=== PATIENT | female | born 1975 | race Caucasian/White ===

== ENCOUNTER 2023-06-15 13:10 | Emergency (ER) | payer MEDICAID, SELFPAY ==
[2023-06-15] VITALS (10 sets, daily range): BP systolic 116–147; BP diastolic 71–95; PULSE 92; RESP 16; O2SAT 96–99; BMI 30.9
--- NOTE | 2023-06-15 14:35 | ED.ALLEREA1 ---
HPI - Allergic Reaction General Chief complaint: Allergic Reaction Stated complaint: POSS. BEE STING Time Seen by Provider: 06/15/23 13:12 Source: patient Mode of arrival: ambulance Limitations: no limitations History of Present Illness HPI narrative: patient brought in by EMS after getting stung on the left anterolateral neck. She was putting her phone against her neck and the insect must have been on the phone and then stung her. She immediately had pain and redness and some swelling at the site. She then developed shortness of breath and the sensation of throat swelling and so she called 911. EMS gave her SQ Epi, IV solumedrol and IV Benadryl. By the time she arrived she was already feeling better. She still had redness and swelling to the neck. Related Data Previous Rx's Medication Instructions Recorded prednisone 20 mg tablet 40 mg PO DAILY PRN allergic 06/15/23 reaction #10 tabs Allergies Allergy/AdvReac Type Severity Reaction Status Date / Time Penicillins Allergy Intermediate Verified 06/15/23 13:13 Exam Narrative Exam Narrative: Nurses notes and vital signs reviewed and patient is not hypoxic. General: Well-appearing and in no apparent distress. Skin: Warm, dry, no pallor noted. No rash. Head: Normocephalic, atraumatic. Neck: Supple, no lymphadenopathy. Area of swelling and erythema along the anterolateral left neck. Eye: Pupils are equal, round and EOMI. No scleral icterus. Ears, Nose, Mouth, and Throat: Oral mucosa is slightly dry, no posterior oropharynx erythema or swelling, uvula is mid-line, no tongue swelling Cardiovascular: Regular Rate and Rhythm without murmur, gallop or rub. Respiratory: No accessory muscle use or respiratory distress. Lungs are clear to auscultation, no wheezing, rales or rhonchi Musculoskeletal: normal ROM Neurological: A&O x4. No cranial nerve dysfunction observed. No truncal ataxia. Moves all extremities. Sensation intact. Psychiatric: Cooperative and interactive. Normal mood and affect. Constitutional Vital Signs, click to edit/add: Last Vital Signs Pulse 92 H 06/15/23 13:11 Resp 16 06/15/23 13:11 BP 116/77 06/15/23 14:00 Pulse Ox 96 06/15/23 14:00 O2 Del Method Room Air 06/15/23 13:17 Course Vital Signs Vital signs: Vital Signs Pulse Rate 92 H 06/15/23 13:11 Respiratory Rate 16 06/15/23 13:11 Blood Pressure 147/95 H 06/15/23 13:11 Pulse Oximetry 98 06/15/23 13:11 Oxygen Delivery Method Room Air 06/15/23 13:11 Pulse Rate 92 H 06/15/23 13:11 Respiratory Rate 16 06/15/23 13:11 Blood Pressure 116/77 06/15/23 14:00 Pulse Oximetry 96 06/15/23 14:00 Oxygen Delivery Method Room Air 06/15/23 13:17 MDM - Allergic Reaction MDM Narrative Medical decision making narrative: she is doing very well after the treatment the EMS provided and her symptoms have already improved. She was given some ice water to drink. The area of redness and swelling in the portion of her neck in which the bite or sting occurred should improve on its own over time. She was instructed to take Benadryl at home and she was prescribed prednisone to take as well in case her symptoms persisted. Discharge Plan Discharge Chief Complaint: Allergic Reaction Clinical Impression: Allergic reaction, Insect bite Patient Disposition: Home, Self-Care Time of Disposition Decision: 14:40 Prescriptions / Home Meds: New prednisone 20 mg tablet 40 mg PO DAILY PRN (Reason: allergic reaction) Qty: 10 0RF Instructions: Insect Bite or Sting (ED), General Allergic Reaction (ED) Stand Alone Forms: Portal Instructions Referrals: Physician,Non-Staff, MD [Primary Care Provider] - 1 week
== END 2023-06-15 14:52 | disposition home or self-care (01) ==
PROVIDERS: Emergency Provider Emergency Medicine
DX: T63.481A Toxic effect of venom of other arthropod, accidental (unintentional), initial encounter (principal)
CPT/HCPCS: 99283

== ENCOUNTER 2023-12-28 16:50 | Emergency (ER) | payer MEDICAID, SELFPAY ==
[2023-12-28 16:55] VITALS: BP 152/95; PULSE 85; RESP 20; TEMP 36.5; O2SAT 97; BMI 30.9
--- NOTE | 2023-12-28 17:07 | XR_ITS ---
The [address] [address] Patient Name: NANCY NICOLE MRN: [id number] date: 1975 Sex: F Assigned Patient Location: ER Current Patient Location: ER Accession/Order Number: [id number] Exam Date: 12/28/2023 17:19 Report Date: 12/28/2023 18:03 At the request of: WALE POWELL Procedure: XR cervical spine 2-3V EXAM TYPE: XR cervical spine 2-3V INDICATION: right sided neck pain COMPARISON: None. TECHNIQUE: 3 views of the cervical spine. FINDINGS: There is minimal anterolisthesis of C2-C3 measuring approximately 2 mm. There is straightening of the normal lordotic curvature of the cervical spine which may represent muscle spasming. There is a mild to moderate narrowing of the C5-C6 level. Prevertebral soft tissues are within normal limits. The visualized lung apices are clear. Lateral masses of C1-C2 are symmetric. XR/XR cervical spine 2-3V IMPRESSION: Mild to moderate degenerative disc disease of C5-C6. Electronically authenticated by: KAYE OSMAN Date: 12/28/2023 18:03
--- NOTE | 2023-12-28 17:08 | ED.GENADUL1 ---
HPI - General Adult General Chief complaint: Neck Pain/Injury Stated complaint: Neck Pain Time Seen by Provider: 12/28/23 16:57 Source: patient Mode of arrival: walk-in Limitations: no limitations History of Present Illness HPI narrative: Patient is a 48-year-old female Presents to the ER for evaluation of right-sided neck pain. Patient states she Was roller skating with kids on Friday, got taken out by another kid and landed on her left hip, left wrist and felt her neck pulled. She denies any head injury or loss of consciousness. She has a longstanding history of chronic migraines and neck pain and was previously referred to physical therapy 2 months ago by her neurologist but has not yet gone. Patient notes pain mostly on the right side of her neck which is opposite of where she fell, tried muscle relaxant and of the week x 1 with minimal to no relief. Patient denies headache at this time but states she does get frequent migraines. Patient walks well and notes that the symptoms in her left hip are tolerable, left wrist appears to be resolved. Pt denies Head injury, neck pain started few days s/p fall. Location: Reports neck (right SCM) Radiation: Reports neck Severity: moderate Relieving factors: Reports none (tried multiple modalities at home Red light/ sauna blanket etc) Exacerbating factors: Reports movement Related Data Home Medications Medication Instructions Recorded Confirmed dextroamphetamine-amphetamine ER 20 mg PO DAILY 12/28/23 12/28/23 20 mg 24hr capsule,extend release (Adderall XR) fluoxetine 20 mg capsule 20 mg PO DAILY 12/28/23 12/28/23 ketorolac 10 mg tablet 10 mg PO TID PRN pain 12/28/23 12/28/23 pramipexole 0.75 mg tablet 0.75 mg PO TID 12/28/23 12/28/23 Previous Rx's Medication Instructions Recorded methylprednisolone 4 mg tablets in 4 mg PO DAILY #21 ea 12/28/23 a dose pack (Medrol (Dayron)) ondansetron HCl 4 mg tablet 4 mg PO Q6H PRN nausea and 12/28/23 vomiting #12 tabs tizanidine 4 mg tablet 4 mg PO TID PRN muscle spasticity 12/28/23 3 days #9 tabs Allergies Allergy/AdvReac Type Severity Reaction Status Date / Time adhesive tape Allergy Intermediate Verified 12/28/23 16:58 Penicillins Allergy Intermediate Verified 06/15/23 13:13 sumatriptan [From Imitrex] Allergy Intermediate Verified 12/28/23 16:58 Review of Systems ROS Constitutional Denies: fever or chills Eyes Denies: change in vision Ears, nose, mouth, and throat Reports: neck pain; Denies: throat pain, throat swelling, dry mouth or vertigo Cardiovascular Denies: chest pain, palpitations or edema Respiratory Denies: shortness of breath Gastrointestinal Denies: abdominal pain or nausea Musculoskeletal Reports: neck pain and extremity pain (mild soreness left buttocl. ); Denies: back pain Integumentary/Breast Denies: rash Neurological Denies: headache or numbness in extremities Psychiatric Denies: anxiety Hematologic/Lymphatic Denies: easy bruising Allergic/Immunologic Denies: hives Exam Narrative Exam Narrative: Nurses notes and vital signs reviewed and patient is not hypoxic. General: The patient appears well and in no apparent distress. Patient is resting comfortably and easily Sitting up on cart Skin: Warm, dry, no pallor noted. Head: Normocephalic, atraumatic Neck: Supple, trachea mid-line, no mid line tenderness, no lymphadenopathy, + pain to right SCM. + pain looking to right, moves well to left. able to chin to chest. Eye: Pupils are equal, round and reactive to light, EOMI Ears, Nose, Mouth, and Throat: TM are clear, normal light reflex, oral mucosa is moist, no posterior oropharynx erythema or hypertrophy, uvula is mid-line Cardiovascular: Regular Rate and Rhythm Respiratory: Patient is in no distress, no accessory muscle use, lungs are clear to auscultation, no wheezing, rales or rhonchi. Chest Wall: no tenderness, no clavicular pain Back: non-tender, no CVA tenderness, + tenderness left buttock to ischial tuberosity. Musculoskeletal: normal ROM, no tenderness or swelling to Left wrist or elbow. no scaphoid tenderness. full rom and no bony tenderness to wrist joint. Bilateral shoulders nontender. . hips with full rom active and passive without pain, neg slr... GI: no tenderness to palpation, no masses appreciated. No rebound, guarding, or rigidity noted. Neurological: A&O x4, neg hoffmans, reflexes 2/4 UE Psychiatric: Cooperative Constitutional Vital Signs, click to edit/add: Last Vital Signs Temp 97.7 F 12/28/23 16:55 Pulse 85 12/28/23 16:55 Resp 20 12/28/23 16:55 BP 152/95 H 12/28/23 16:55 Pulse Ox 97 12/28/23 16:55 O2 Del Method Room Air 12/28/23 16:55 Course Vital Signs Vital signs: Vital Signs Temperature 97.7 F 12/28/23 16:55 Pulse Rate 85 12/28/23 16:55 Respiratory Rate 20 12/28/23 16:55 Blood Pressure 152/95 H 12/28/23 16:55 Pulse Oximetry 97 12/28/23 16:55 Oxygen Delivery Method Room Air 12/28/23 16:55 Temperature 97.7 F 12/28/23 16:55 Pulse Rate 85 12/28/23 16:55 Respiratory Rate 20 12/28/23 16:55 Blood Pressure 152/95 H 12/28/23 16:55 Pulse Oximetry 97 12/28/23 16:55 Oxygen Delivery Method Room Air 12/28/23 16:55 Medical Decision Making MDM Narrative Medical decision making narrative: pt agreeable to IM injection for pain and muscle relaxant ( oral prednisone ) with risk and benefit discussed. xrays preformed of neck and left hip. suspect whiplash injury with fall.. no s/s of head injury.... pt with Acute on chronic right-sided neck pain, likely exacerbated with fall's possible whiplash injury. We discussed her plain films with potential age-indeterminate Process avulsion fracture. On clinical exam she is not significantly tender in this location for acute injury. However prior MRI does show cervical disc bulging at on the right... and prior Ct does not show this possible chip. risk and benefits of medication discussed.. muscle relaxant and prednsione rx discussed.Zofran sent for nausea, patient agreeable to call orthopedic clinic to try and schedule appointment with air quality instrument specialist prior to starting physical therapy. Patient open to possible pain management if clinically indicated. Patient reports best relief of prior migraine symptoms and neck pain with occipital nerve injection at [facility]. The patient is to followup with Orthopedic clinic ( try for appt with software implementation specialist) primary care physician in next 2-3 days or to return to the emergency department should any of the signs or symptoms worsen or new symptoms develop. Patient had questions answered. The patient agrees with the following Diagnosis and Treatment plan and the patient will be discharged home. Imaging Data xr hip and c-spine: Attestation: I personally reviewed and interpreted this imaging study as follows: My impression: ? age inderminate avulsion c7 spinous process Radiologist's impression: ITS Impressions Cervical Spine X-Ray 12/28/23 17:07 IMPRESSION: Mild to moderate degenerative disc disease of C5-C6. Electronically authenticated by: KAYE OSMAN Date: 12/28/2023 18:03 Hip/Pelvis X-Ray 12/28/23 17:12 IMPRESSION: No acute fracture of the left hip or bony pelvis. Electronically authenticated by: KAYE OSMAN Date: 12/28/2023 18:04 Discharge Plan Discharge Chief Complaint: Neck Pain/Injury Clinical Impression: Neck pain on right side, Acute pain of left hip Strain of neck muscle Qualifiers: Encounter type: initial encounter Qualified Code(s): S16.1XXA - Strain of muscle, fascia and tendon at neck level, initial encounter Patient Disposition: Home, Self-Care Time of Disposition Decision: 18:10 Condition: Good Prescriptions / Home Meds: New methylprednisolone [Medrol (Dayron)] 4 mg tablets,dose pack 4 mg PO DAILY Qty: 21 0RF Rx Instructions: as directed tizanidine 4 mg tablet 4 mg PO TID PRN (Reason: muscle spasticity) 3 Days Qty: 9 0RF ondansetron HCl 4 mg tablet 4 mg PO Q6H PRN (Reason: nausea and vomiting) Qty: 12 0RF No Action pramipexole 0.75 mg tablet 0.75 mg PO TID dextroamphetamine-amphetamine [Adderall XR] 20 mg capsule,extended release 24hr 20 mg PO DAILY fluoxetine 20 mg capsule 20 mg PO DAILY ketorolac 10 mg tablet 10 mg PO TID PRN (Reason: pain) Instructions: Cervical Strain (ED) Additional Instructions: contact Dr. Nazario's office.. ask for Dr. Warner Saunders ( orthospine specialiast)- history of cervical disc herniation ? avulsion C7 spinous process prior to starying physical therapy order with Neurolgy. ( prior MRI on [facility] PACs noting disc herniation) Stand Alone Forms: Portal Instructions Referrals: LISA GA [Physician] - 1 week Michi Chaidez DO [Physician] - As soon as possible Carlton Nazario MD [Physician] - As soon as possible
--- NOTE | 2023-12-28 17:12 | XR_ITS ---
The [address] [address] Patient Name: NANCY NICOLE MRN: [id number] date: 1975 Sex: F Assigned Patient Location: ER Current Patient Location: ER Accession/Order Number: [id number] Exam Date: 12/28/2023 17:19 Report Date: 12/28/2023 18:04 At the request of: WALE POWELL Procedure: XR hip LT 2V w/ pelvis XR hip LT 2V w/ pelvis: HISTORY: pain left hip s/p fall pain left hip s/p fall COMPARISON: None available. TECHNIQUE: 3 left hip/bony pelvis views are submitted. FINDINGS: BONES/JOINT SPACES: There is no acute fracture or dislocation. There is mild narrowing of the hip joints. The contour of each femoral head is well maintained. Pelvic ring structures are preserved. SOFT TISSUES: The soft tissues are unremarkable. XR/XR hip LT 2V w/ pelvis IMPRESSION: No acute fracture of the left hip or bony pelvis. Electronically authenticated by: KAYE OSMAN Date: 12/28/2023 18:04
[2023-12-28] MEDS: ORPHENADRINE 60 MG/ 2 ML VIAL IM (17:35)
[2023-12-28] MEDS: KETOROLAC TROMETHAMINE 60 MG/2 ML VIAL IM (17:35)
[2023-12-28] MEDS: PREDNISONE 20 MG TABLET 40 MG PO (17:35)
[2023-12-28] MEDS: ONDANSETRON 4 MG RAPDIS TABLET SL (18:03)
== END 2023-12-28 18:16 | disposition home or self-care (01) ==
PROVIDERS: Emergency Provider Emergency Medicine
DX: M54.2 Cervicalgia (principal); M25.552 Pain in left hip; M50.322 Other cervical disc degeneration at C5-C6 level
CPT/HCPCS: 72040; 73502; 96372; 99285; J1885; J2360; J7512; Q0162

== ENCOUNTER 2024-01-28 13:56 | Outpatient (OUT) | payer MEDICAID, SELFPAY ==
--- NOTE | 2024-01-28 14:01 | MR_ITS ---
[address] [address] Patient Name: NANCY NICOLE MRN: [facility]:[id number] date: 1975 Sex: F Assigned Patient Location: MRI Current Patient Location: MRI Accession/Order Number: [id number] Exam Date: 01/28/2024 14:10 Report Date: 01/28/2024 15:51 At the request of: CHANEL ZUNIGA Procedure: MR cervical spine wo con EXAM: MR cervical spine wo con CLINICAL INDICATION: strain of neck muscle S16.1XXA COMPARISON: Cervical spine radiographs 12/28/2023. TECHNIQUE/PROTOCOL: Standard noncontrast cervical spine protocol MR performed (Sagittal STIR, T1, T2, axial gradient, T2-weighted images). FINDINGS: Spinal Cord: Normal in caliber and signal. Epidural Hematoma: None. Alignment: Normal craniocervical junction. Straightening of the physiologic cervical lordosis could relate at least in part to patient positioning. Marrow Signal: Normal. Vertebral Body Heights: Maintained. Paraspinal Soft Tissues: Normal. Neck Soft Tissues: Normal. Spondylotic Changes: Mild multilevel spondylotic changes include varying degrees of intervertebral disc height loss, disc desiccation, osteophytic ridging, and facet/uncovertebral joint hypertrophy. C2-C3: No disc bulge or herniation. No high-grade spinal canal narrowing. Right foramen is patent. Mild left foraminal narrowing is contributed to by facet hypertrophy. C3-C4: No disc bulge or herniation. No high-grade spinal canal or foraminal narrowing. Minimal bilateral facet hypertrophy. C4-C5: No disc bulge or herniation. No high-grade spinal canal narrowing. Mild bilateral foraminal narrowing is contributed to by uncovertebral and facet joint hypertrophy. C5-C6: Disc osteophyte complex indents the ventral thecal sac. Mild spinal canal narrowing. Advanced bilateral foraminal narrowing is contributed to by uncovertebral and facet joint hypertrophy. C6-C7: No disc bulge or herniation. No high-grade spinal canal or foraminal narrowing. C7-T1: No disc bulge or herniation. No high-grade spinal canal or foraminal narrowing. MR/MR cervical spine wo con IMPRESSION: 1. Mild multilevel spondylotic changes without high-grade spinal canal narrowing at any cervical level. 2. Foraminal narrowing is advanced bilaterally at C5-C6. This is contributed to by uncovertebral and facet joint hypertrophy. Electronically authenticated by: BRIELLE PÉREZ Date: 01/28/2024 15:51
== END 2024-01-28 13:57 | disposition home or self-care (01) ==
LOC: MRI 13:56
PROVIDERS: Visit Provider Orthopaedic Surgery Orthopaedic Surgery of the Spine
DX: S16.1XXA Strain of muscle, fascia and tendon at neck level, initial encounter (principal)
CPT/HCPCS: 72141

== ENCOUNTER 2024-01-28 16:34 | Outpatient (RCR) | payer MEDICAID, SELFPAY | END 2024-01-29 11:13 | disposition home or self-care (01) | LOC: PT 16:34 | PROVIDERS: Visit Provider Psychiatry & Neurology Neurology | DX: M47.812 Spondylosis without myelopathy or radiculopathy, cervical region (principal); M54.2 Cervicalgia; S16.1XXD Strain of muscle, fascia and tendon at neck level, subsequent encounter | CPT/HCPCS: 72141; 97110; 97140; 97162 ==

== ENCOUNTER 2024-09-03 08:57 | Outpatient (OUT) | payer MEDICAID, SELFPAY ==
--- NOTE | 2024-09-03 09:10 | XR_ITS ---
[address] [address] Patient Name: NANCY NICOLE MRN: [id number] date: 1975 Sex: F Assigned Patient Location: [facility] Current Patient Location: [facility] Accession/Order Number: [id number] Exam Date: 09/03/2024 10:32 Report Date: 09/03/2024 10:56 At the request of: CHANEL ZUNIGA Procedure: XR chest 2V PROCEDURE: XR chest 2V DATE: 09/03/2024 10:32 AM EDT COMPARISONS: 11/24/2022 CLINICAL INDICATION: 48 years Female smoker FINDINGS: The cardiomediastinal silhouette and pulmonary vasculature are within normal limits. The lungs are clear. There is no evidence of pleural effusion or pneumothorax. XR/XR chest 2V IMPRESSION: Chest radiograph is within normal limits. Electronically authenticated by: CONCHIS GUZMAN Date: 09/03/2024 10:56
--- NOTE | 2024-09-03 09:11 | ECG_ITS ---
The 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
--- OUTSIDE RECORDS SUMMARY | 2024-09-03 09:22 | XMS_ITS | CCD ---
Author Organization [facility] Inform ion 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 Role Phone Josy Isaacs Primary Care Physician Varun Card Primary Care Provider MD Prateek Hicks Attending Provider VERA Isaacs Primary Care Provider MD Gaurav Marr Attending Provider [phone] MD Prateek Hicks Admit Provider DO Brady Shaikh Emergency Provider Varun Dowell Primary Care Provider Josy Isaacs Primary Care Unavailable Brady Shaikh Attending Unavailable Brady Shaikh Admitting Unavailable Josy Isaacs Primary Care Unavailable Gaurav Marr Admitting Unavailable Gaurav Marr Attending Unavailable Josy Isaacs Primary Care Unavailable Prateek Hicks Attending Unavailable Prateek Hicks Admitting Unavailable Josy Isaacs Primary Care Unavailable Prateek Hicks Attending Unavailable Prateek Hicks Admitting Unavailable DIAB ., CHARLIE Admitting Unavailable DIAB ., CHARLIE Attending Unavailable ILIANA BERMUDEZ Consulting Unavailable [facility] Primary Care Unavaila ble DIAB ., CHARLIE Consulting Unavailable MISC, DR AU Admitting Unavailable MISC, DR AU Consulting Unavailable MISC, DR AU Attending Unavailable [facility] Primary Care Unavaila ble Romeo Chaidez Primary Care Physician Unavail able Romeo Chaidez Primary Care Physician Unavail able REMIGIO TRUJILLO Attending Unavailable VARUN CARD Primary Care REMIGIO Platt Attending Unavailable VARUN CARD Primary Care Romeo Izquierdo Attending Unavailable Romeo Chaidez Referring Unavailable Romeo Chaidez Admitting Unavailable Romeo Chaidez Attending Unavailable Romeo Chaidez Admitting Unavailable Romeo Chaidez Attending Unavailable Romeo Chaidez Attending Unavailable Romeo Chaidez Attending Unavailable Romeo Chaidez Attending Unavailable Romeo Chaidez Attending Unavailable Romeo Chaidez Attending Unavailable Romeo Chaidez Attending Unavailable Romeo Chaidez DO Primary Care Provider PRATEEK HICKS Attending Unavailable PRATEEK HICKS Referring Unavailable LISA MARTÍNEZ Attending Unavailable PRATEEK HICKS Attending Unavailable LISA MARTÍNEZ Attending Unavailable Yovani Negrete Admitting Unavailab Yovani Deleon Attending Unavailab le Dm ANDINO, Romeo Lopez Primary Care Unavailable Omley, Tru H Admitting Unavailable Shaka Tru H Attending Unavailable Romeo Chaidez DO Primary Care Unavailable Bin Bello I Attending Unavailable Dm ANDINO, Romeo Lopez Primary Care Unavailable Eugenia, Bin I Admitting Unavailable Omley, Tru H Admitting Unavailable Omley, Tru H Attending Unavailable Dm ANDINO, Romeo Lopez Primary Care Unavailable Jeff Ingram Attending Unavailable Dm ANDINO, Romeo Lopez Primary Care Unavailable Jeff Ingram Admitting Unavailable Omley, Tru H Admitting Unavailable Shaka, Tru H Attending Unavailable Romeo Chaidez DO Primary Care Unavailable Dameon Varner Admitting Unavailable Dameon Varner Attending Unavailable Dm ANDINO, Romeo Lopez Primary Care Unavailable Brenna Yoon Admitting Unavailab Brenna Young Attending Unavailab le Dm ANDINO, Romeo Lopez Primary Care Unavailable Allergies Allergy Classification Reported Allergen(s) Allergy Type Date of Onset Reaction(s) Facility Adhesive Tape (1 source) Adhesive Tape Substance Allergy Chemical burn [facility] Penicillins (antibiotic) (1 source) Penicillin; Translations: [penicillin] Drug Allergy Rash [facility] Serotonin-1b and Serotonin-1d Receptor Agonists (1 source) SUMAtriptan; Translations: [sumatriptan] Drug Allergy Eruption of skin (disorder) [facility] (16 sources) Adhesive Tape; Translations: [Tape] Drug allergy 2 Chemical burn, Rash, damon skin [facility] (16 sources) Penicillin; Translations: [penicillin] Drug Allergy Rash [facility] (19 sources) SUMAtriptan; Translations: [sumatriptan] Drug Allergy 2 Eruption of skin (disorder), Other [facility] (4 sources) Penicillins; Translations: [PENICILLINS] Propensity to adverse reactions 3 Rash [facility] Work Phone: (11 sources) traMADol; Translations: [TRAMADOL] Drug Allergy 3 Rash, [facility] (3 sources) Promethazine Drug Allergy 2 body sweats [facility] (5 sources) Penicillins Propensity to adverse reactions 3 Rash [facility] Work Phone: (1 source) Desonide Drug Allergy 5 [facility] (2 sources) Levamisole; Translations: [Phenergan] Drug Allergy 0 [facility] (1 source) Penicillins Drug allergy (disorder) 5 [facility] (2 sources) Acetaminophen / oxyCODONE Drug Allergy 3 Rash [facility] (2 sources) Penicillins Drug Allergy 3 Other [facility] (2 sources) Fremanezumab-Vfrm Drug Allergy 3 Rash [facility] (2 sources) Wound Dressing Adhesive Drug Allergy 3 Other [facility] (1 source) Adhesive bandage; Translations: [Adhesive Bandage] Propensity to adverse reactions (disorder) [facility] (1 source) Latex; Translations: [Latex Allergy] Propensity to adverse reactions (disorder) [facility] Medications Current Medications Medication Drug Class(es) Dates Sig (Normalized) Sig (Original) 200 actuat albuterol 0.09 mg/actuat dry powder inhaler (13 sources) beta2-Adrenergic Agonist Start: 11-26-2021 take 180 ug by inhalation every six hours albuterol 90 mcg/inh inhalation powder 180 mcg, 2 puff(s), Inhalation, q6hr, 1 EA, Refill(s) 1, [facility] 163, cm, 11/26/21 15:43:00 EST, Height/Length Dosing, 84.3, kg, 11/26/21 15:43:00 EST, Weight Dosing Start Date: 11/26/21 Status: Ordered albuterol 90 mcg/inh inhalation powder (2 sources) Start: 11-26-2021 take 180 ug by inhalation every six hours albuterol 90 mcg/inh inhalation powder 180 mcg, 2 puff(s), Inhalation, q6hr, 1 EA, Refill(s) 1, [facility], 163, cm, 11/26/21 15:43:00 EST, Height/Length Dosing, 84.3, kg, 11/26/21 15:43:00 EST, Weight Dosing Start Date: 11/26/21 Status: Ordered Amphetamine / Dextroamphetamine (4 sources) Central Nervous System Stimulant Start: 09-15-2023 Amphetamine-Dext roamphetamine (ADDERALL PO) 0 Refill(s) 09/15/2023 Active Start: 08-26-2022 take 1 capsule by [facility] once daily in the morning amphetamine-dextroamphetamine 10 mg oral capsule, extended release 10 mg, 1 cap(s), Oral, qAM, 30 cap(s), Refill(s) 0, [facility] #[id number], 163, cm, 08/26/22 16:42:00 EDT, Height/Length Dosing, 87.2, kg, 08/26/22 16:42:00 EDT, Weight Dosing Start Date: 08/26/22 Status: Ordered 24 hr amphetamine aspartate 2.5 mg / amphetamine sulfate 2.5 mg / dextroamphetamine saccharate 2.5 mg / dextroamphetamine sulfate 2.5 mg extended release oral capsule (20 sources) Central Nervous System Stimulant Start: 07-27-2024 take 1 capsule by mouth once daily in the morning Adderall XR 10 mg Cap-ER 10 mg = 1 cap(s), Oral, qAM, # 30 cap(s), Refills(s) 0, Pharmacy: [facility]/pharmacy #[id number], 163, cm, 07/16/24 11:42:00 EDT, Height/Length Dosing, 80.1, kg, 05/18/24 11:42:00 EDT, Weight Dosing Start Date: 07/27/24 Status: Ordered Start: 07-12-2024 take 1 capsule by mo uth once daily in the morning Adderall XR 20 mg Cap-ER 20 mg = 1 cap(s), Oral, qAM, # 30 cap(s), Refills(s) 0, Pharmacy: [facility]/pharmacy #[id number], 163, cm, 05/18/24 11:42:00 EDT, Height/Length Dosing, 80.1, kg, 05/18/24 11:42:00 EDT, Weight Dosing Start Date: 07/12/24 Status: Ordered Start: 05-31-2024 take 1 capsule by mo uth once daily in the morning Adderall XR 10 mg Cap-ER 10 mg = 1 cap(s), Oral, qAM, # 30 cap(s), Refills(s) 0, [facility] [address] [facility][id number], 163, cm, 05/18/24 11:42:00 EDT, Height/Length Dosing, 80.1, kg, 05/18/24 11:42:00 EDT, Weight Dosing Start Date: 05/31/24 Status: Ordered Start: 05-18-2024 take 1 capsule by mo ut once daily in the morning Adderall XR 20 mg Cap-ER 20 mg = 1 cap(s), Oral, qAM, # 30 cap(s), Refills(s) 0, Pharmacy: [facility] [id number], 163, cm, 05/18/24 11:42:00 EDT, Height/Length Dosing, 80.1, kg, 05/18/24 11:42:00 EDT, Weight Dosing Start Date: 05/18/24 Status: Ordered Start: 07-21-2023 take 1 capsule by mo [facility] once daily in the morning Adderall XR 10 mg Cap-ER 10 mg = 1 cap(s), Oral, qAM, # 30 cap(s), Refills(s) 0, Pharmacy: [facility] [id number], 163, cm, 05/18/24 11:42:00 EDT, Height/Length Dosing, 80.1, kg, 05/18/24 11:42:00 EDT, Weight Dosing Start Date: 05/18/24 Status: Ordered Start: 07-21-2023 take 1 capsule by [facility] once daily in the morning Adderall XR 20 mg Cap-ER 20 mg = 1 cap(s), Oral, qAM, # 30 cap(s), Refills(s) 0, Pharmacy: [facility] #[id number], 163, cm, 12/23/23 17:11:00 EST, Height/Length Dosing, 80.1, kg, 12/23/23 17:11:00 EST, Weight Dosing Start Date: 02/18/24 Status: Ordered Start: 05-13-2023 take 1 capsule by [facility] once daily in the morning Adderall XR 10 mg Cap-ER 10 mg = 1 cap(s), Oral, qAM, # 30 cap(s), Refills(s) 0, Pharmacy: [facility] #[id number], 163, cm, 04/04/23 12:54:00 EDT, Height/Length Dosing, 82, kg, 04/04/23 12:54:00 EDT, Weight Dosing Start Date: 05/13/23 Status: Ordered Start: 05-13-2023 take 1 capsule by [facility] once daily in the morning Adderall XR 20 mg Cap-ER 20 mg = 1 cap(s), Oral, qAM, # 30 cap(s), Refills(s) 0, Pharmacy: [facility] #[id number], 163, cm, 04/04/23 12:54:00 EDT, Height/Length Dosing, 82, kg, 04/04/23 12:54:00 EDT, Weight Dosing Start Date: 05/13/23 Status: Ordered Start: 04-04-2023 take 1 capsule by [facility] once daily in the morning Adderall XR 10 mg Cap-ER 10 mg = 1 cap(s), Oral, qAM, # 30 cap(s), Refills(s) 0, Pharmacy: [facility] #[id number], 163, cm, 04/04/23 12:54:00 EDT, Height/Length Dosing, 82, kg, 04/04/23 12:54:00 EDT, Weight Dosing Start Date: 04/04/23 Status: Ordered Start: 04-04-2023 take 1 capsule by mo uth once daily in the morning Adderall XR 20 mg Cap-ER 20 mg = 1 cap(s), Oral, qAM, # 30 cap(s), Refills(s) 0, Pharmacy: [facility] #[id number], 163, cm, 04/04/23 12:54:00 EDT, Height/Length Dosing, 82, kg, 04/04/23 12:54:00 EDT, Weight Dosing Start Date: 04/04/23 Status: Ordered Start: 12-30-2022 End: 01-29-2023 take 1 capsule by mouth once daily in the morning amphetamine-dextroamphetamine 20 mg Cap-ER 20 mg = 1 cap(s), Oral, qAM, Take one capsule daily in the morning., X 30 day(s), # 30 cap(s), Refills(s) 0, Pharmacy: [facility] #[id number], 163, cm, 12/30/22 10:28:00 EST, Height/Length Dosing, 85.4, kg, 12/30/22 10:28:00 EST, Weight Dosing Start Date: 12/30/22 Stop Date: 01/29/23 Status: Ordered Start: 12-30-2022 End: 01-29-2023 take 1 capsule by mouth once daily amphetamine-dextroamphetamine 10 mg Cap-ER 10 mg = 1 cap(s), Oral, Daily, Take one capsule daily in afternoon., X 30 day(s), # 30 cap(s), Refills(s) 0, Pharmacy: [facility] #[id number], 163, cm, 12/30/22 10:28:00 EST, Height/Length Dosing, 85.4, kg, 12/30/22 10:28:00 EST, Weight Dosing Start Date: 12/30/22 Stop Date: 01/29/23 Status: Ordered Start: 10-30-2022 End: 11-29-2022 take 1 capsule by mouth once daily in the morning Adderall XR 20 mg Cap-ER 20 mg = 1 cap(s), Oral, qAM, X 30 day(s), # 30 cap(s), Refills(s) 0, Pharmacy: [facility] #[id number], 163, cm, 10/30/22 10:02:00 EST, Height/Length Dosing, 86.1, kg, 10/30/22 10:02:00 EST, Weight Dosing Start Date: 10/30/22 Stop Date: 11/29/22 Status: Ordered Start: 08-26-2022 take 1 capsule by [facility] once daily in the morning amphetamine-dextroamphetamine 10 mg oral capsule, extended release 10 mg, 1 cap(s), Oral, qAM, 30 cap(s), Refill(s) 0, [facility] #[id number], 163, cm, 08/26/22 16:42:00 EDT, Height/Length Dosing, 87.2, kg, 08/26/22 16:42:00 EDT, Weight Dosing Start Date: 08/26/22 Status: Ordered ARIPiprazole 2 mg oral tablet (18 sources) Atypical Antipsychotic Start: 08-29-2021 take 1 tablet by mouth in the morning ARIPiprazole (Abilify) 2 MG tablet Take 2 mg by mouth in the morning. 02/02/2023 Active onabotulinumtoxina 200 unt injection (4 sources) Acetylcholine Release Inhibitor Start: 08-19-2024 End: 08-19-2024 onabotulinumtoxinA (Botox) injection 200 Units Start: 08-19-2024 End: 08-19-2024 inject 200 [IU] by intramuscular injection once 200 Units, Intramuscular, Once, On Minerva 08/19/24 at 1445, For 1 dose, Charging context for this clinic-administered medication: Medically Necessary/Insurance onabotulinumtoxi nA (Botox) 200 units injection as directed Injection Active carboxymethylcellulose sodium 5 mg/ml / glycerin 9 mg/ml ophthalmic solution (2 sources) Non-Standardized Chemical Allergen Start: 10-30-2022 Refresh Relieva 0.5-0.9 % solution INSTILL 1 DROP into both eyes four times a day 10/30/2022 Active cephalexin 500 mg oral capsule (5 sources) Cephalosporin Antibacterial Start: 04-28-2022 End: 05-15-2022 take 1 capsule by mouth four times daily cephalexin 500 mg Cap 500 mg = 1 cap(s), Oral, QID, # 40 cap(s), Refills(s) 0, Pharmacy: [facility] 163, cm, 04/28/22 11:34:00 EDT, Height/Length Dosing, 81, kg, 04/28/22 11:34:00 EDT, Weight Dosing Start Date: 04/28/22 Status: Ordered ciprofloxacin 750 mg oral tablet (1 source) Quinolone Antimicrobial Start: 05-22-2022 take 750 mg by mouth twice daily Ciprofloxacin Hcl Active 750 MG PO Twice daily 14 May 22, 2022 12:00am clobetasol propionate 0.0005 mg/mg topical ointment (13 sources) Corticosteroid Start: 10-06-2023 clobetasol (Temovate) 0.05 % ointment apply to HANDS AND FEET twice a day for up to 3 weeks then if nee... (REFER TO PRESCRIPTION NOTES). 10/06/2023 Active Start: 02-25-2022 clobetasol pro pionate 0.05% top oint 1 jyoti, Topical, Daily, 30 gram, Refill(s) 0, [facility] [facility], 163, cm, 02/25/22 16:04:00 EDT, Height/Length Dosing, 86.2, kg, 02/25/22 16:04:00 EDT, Weight Dosing Start Date: 02/25/22 Status: Ordered Start: 02-25-2022 clobetasol pro pionate 0.05% top oint 1 jyoti, Topical, Daily, 30 gram, Refill(s) 0, [facility] [facility] 163, cm, 02/25/22 16:04:00 EDT, Height/Length Dosing, 86.2, kg, 02/25/22 16:04:00 EDT, Weight Dosing Start Date: 02/25/22 Status: Ordered cyclobenzaprine hydrochloride 10 mg oral tablet (8 sources) Muscle Relaxant Start: 08-11-2024 take 1 tablet by mouth twice daily as needed for muscle spasms cyclobenzaprine 10 mg Tab 10 mg = 1 tab(s), Oral, BID, PRN for spasm, # 60 tab(s), Refills(s) 0, Pharmacy: [facility]/pharmacy #[id number], 163, cm, 08/11/24 14:51:00 EDT, Height/Length Dosing, 82, kg, 08/11/24 14:51:00 EDT, Weight Dosing Start Date: 08/11/24 Status: Ordered Start: 08-29-2021 take 1 tablet by fredy th three times daily as needed for muscle spasms cyclobenzaprine 10 mg Tab 10 mg = 1 tab(s), Oral, TID, PRN for spasm, # 30 tab(s), Refills(s) 0 Start Date: 08/29/21 Status: Ordered Start: 03-25-2019 take 10 mg by mouth once daily Flexeril Active 10 MG PO Daily March 25, 2019 12:00am 2 ml dupilumab 150 mg/ml auto-injector (7 sources) Interleukin-4 Receptor alpha Antagonist Start: 12-23-2023 Dupixent Pre-filled Pen 300 mg/2 mL subcutaneous solution 300 mg, Refills(s) 0 Start Date: 12/23/23 Status: Ordered Start: 12-23-2023 inject 300 mg by sub cutaneous injection once Dupixent 300 MG/2ML injection Inject 300 mg under the skin 1 (one) time 12/23/2023 Active 84 hr estradiol 0.68152 mg/hr transdermal system (2 sources) Estrogen Start: 09-18-2023 estradiol (Vivelle-DOT) 0.05 MG/24HR Indications: Menorrhagia with regular cycle apply 1 patch two times a week as directed 8 patch 11 09/18/2023 Active Estradiol Patch 0.05 mg/24 hours twice weekly transdermal film, extended release (12 sources) Start: 08-26-2022 Estradiol Patc h 0.05 mg/24 hours twice weekly transdermal film, extended release apply 1 patch two times a week as directed Start Date: 08/26/22 Status: Ordered FLUoxetine 20 mg oral capsule (18 sources) Serotonin Reuptake Inhibitor Start: 04-04-2023 take 1 capsule by mouth in the morning FLUoxetine (PROzac) 20 MG capsule Take 20 mg by mouth in the morning. 06/28/2023 Active Start: 08-29-2021 take 2 capsules by m outh once daily Prozac 40 mg Cap 80 mg = 2 cap(s), Oral, Daily, Refills(s) 0 Start Date: 08/29/21 Status: Ordered Start: 03-25-2019 take 1 capsule by mo uth once daily Prozac 40 mg Cap 40 mg = 1 cap(s), Oral, Daily, Refills(s) 0 Start Date: 08/29/21 Status: Ordered hydrocortisone 5 mg/ml topical cream (2 sources) Corticosteroid hydrocortisone 0 .5 % cream Apply 1 application topically 2 (two) times a day as needed Active hydroquinone 40 mg/ml topical cream (13 sources) Melanin Synthesis Inhibitor Start: 06-20-2020 End: 06-06-2022 hydroquinone (ELDOQUIN FORTE) 4 % cream apply pea size amount to face twice daily 57 g 3 06/20/2020 06/06/2022 Discontinued Start: 09-15-2012 End: 12-04-2022 hydroquinone 4 % cream apply daily 12/04/2022 Active Comment on above: apply daily apply pea size amoun t to face twice daily hydrOXYzine hydrochloride 25 mg oral tablet (18 sources) Antihistamine Start: 05-18-20 24 take 1 tablet by mouth at bedtime hydrOXYzine hydrochloride 25 mg Tab 25 mg = 1 tab(s), Oral, Bedtime, # 90 tab(s), Refills(s) 4, Pharmacy: [facility] #[id number], 163, cm, 05/18/24 11:42:00 EDT, Height/Length Dosing, 80.1, kg, 05/18/24 11:42:00 EDT, Weight Dosing Start Date: 05/31/24 Status: Ordered Start: 02-25-2022 take 1-2 tablets by mouth four times daily as needed hydrOXYzine hydrochloride 10 mg Tab 20 mg = 2 tab(s), Oral, QID, PRN for itching, 1-2 tabs PRN, # 80 tab(s), Refills(s) 0, Pharmacy: [facility] [facility], 163, cm, 02/25/22 16:04:00 EDT, Height/Length Dosing, 86.2, kg, 02/25/22 16:04:00 EDT, Weight Dosing Start Date: 02/25/22 Status: Ordered Start: 08-29-2021 hydrOXYzine 10 mg, Oral, PRN as needed for anxiety, Refills(s) 0 Start Date: 08/29/21 Status: Ordered ibuprofen 800 mg oral tablet (2 sources) Nonsteroidal Anti-inflammatory Drug take 1 tablet by mouth every six hours as needed ibuprofen 800 MG tablet Take 800 mg by mouth every 6 (six) hours if needed. Active ketorolac tromethamine 10 mg oral tablet (19 sources) Nonsteroidal Anti-inflammatory Drug, Cyclooxygenase Inhibitor Start: 08-19-20 take 1 tablet by mouth twice daily as needed ketorolac (Toradol) 10 MG tablet Indications: Intractable chronic migraine without aura and without status migrainosus (CMS/HCC) 1 po bid prn migriane max 2 days per week 20 tablet 2 08/19/2024 Active Start: 03-25-2019 End: 08-19-2024 take 1 tablet by mouth every six hours for pain ketorolac (Toradol) 10 MG tablet TAKE 1 TABLET BY MOUTH EVERY 6 HOURS IF NEEDED FOR PAIN - 3 DAY SUPPLY 06/28/2023 08/19/2024 Discontinued (Reorder) magnesium oxide 400 mg oral tablet (6 sources) Start: 08-29-2021 magnesium oxide 400 mg Tab Refills(s) 0 Start Date: 08/29/21 Status: Ordered meloxicam 7.5 mg oral tablet (1 source) Nonsteroidal Anti-inflammatory Drug Start: 08-11-2024 take 1 tablet by mouth once daily meloxicam 7.5 mg Tab 7.5 mg = 1 tab(s), Oral, Daily, # 30 tab(s), Refills(s) 1, Pharmacy: [facility]/pharmacy #[id number], 163, cm, 08/11/24 14:51:00 EDT, Height/Length Dosing, 82, kg, 08/11/24 14:51:00 EDT, Weight Dosing Start Date: 08/11/24 Status: Ordered metroNIDAZOLE 500 mg oral tablet (1 source) Nitroimidazole Antimicrobial Start: 05-22-2022 take 500 mg by mouth twice daily Metronidazole Active 500 MG PO Twice daily 16 05May 22, 2022 12:00am naproxen 500 mg oral tablet (1 source) Nonsteroidal Anti-inflammatory Drug Start: 05-22-2022 take 1 tablet by mouth twice daily Naproxen (Naprosyn) 500 mg tablet Active 500 MG PO Twice daily 16 05May 22, 2022 12:00am nortriptyline 10 mg oral capsule (4 sources) Tricyclic Antidepressant Start: 08-26-2022 take 1-2 capsules by mouth at bedtime nortriptyline 10 mg Cap take 1 to 2 capsules by mouth at bedtime Start Date: 08/26/22 Status: Ordered Start: 04-29-2022 take 10 mg by mouth once daily at bedtime Nortriptyline Active 10 MG PO Daily at bedtime April 29, 2022 12:00am ondansetron 4 mg oral tablet (18 sources) Serotonin-3 Receptor Antagonist Start: 10-24-2022 ondansetron (Zofran) 4 MG tablet 10/24/2022 Active Start: 12-28-2019 Zofran 4 mg Ta b mg tab(s), Oral, PRN Indigestion, Refills(s) 0 Start Date: 08/29/21 Status: Ordered pramipexole dihydrochloride 0.75 mg oral tablet (20 sources) Nonergot Dopamine Agonist Start: 08-16-2023 pramipexole (Mirapex ) 0.75 MG tablet 08/16/2023 Active Start: 04-29-2022 take 0.75 mg by mout h three times daily Pramipexole Active 0.75 MG PO Three times daily April 29, 2022 12:00am Start: 04-29-2022 take 0.125 mg by fredy th three times daily Pramipexole Active 0.125 MG PO Three times daily April 29, 2022 12:00am Start: 08-29-2021 take 1 tablet by fredy th once daily at dinner Mirapex 0.75 mg oral tablet 0.75 mg = 1 tab(s), Oral, Daily, rx by Dr Martínez, # 30 tab(s), Refills(s) 0, other reason (Rx) Start Date: 05/18/24 Status: Ordered Start: 03-25-2019 End: 04-29-2022 take 1 tablet by mouth twice daily Pramipexole (Mirapex) 0.5 mg Tablet Discontinued 0.5 MG PO Twice daily March 25, 2019 12:00am April 29, 2022 10:04am predniSONE 20 mg oral tablet (7 sources) Start: 06-15-2023 take 2 tablets by mouth once daily predniSONE (Deltasone) 20 MG tablet take 2 tablets by mouth once daily 06/15/2023 Active Start: 02-25-2022 predniSONE 20 mg Tab See Instructions, 3 tabs daily x 4 days 2 tabs daily x 4 days 1 tabs daily x 4 days Take in the AM with food., # 24 tab(s), Refills(s) 0, Pharmacy: [address], 163, cm, 02/25/22 16:04:00 EDT, Height/Length Dosing, 86.2, kg, 02/25/22 16... Start Date: 02/25/22 Status: Ordered sodium chloride 0.111 meq/ml nasal solution (2 sources) sodium chloride ([place]) 0.65 % nasal spray 2 sprays in each nostril as needed Active tiZANidine 2 mg oral tablet (11 sources) Central alpha-2 Adrenergic Agonist Start: 05-18-2024 take 1 tablet by mouth at dinner tiZANidine 2 mg Tab 2 mg = 1 tab(s), Oral, Bedtime, rx by Dr. Martínez, # 30 tab(s), Refills(s) 0, other reason (Rx) Start Date: 05/18/24 Status: Ordered Start: 06-02-2023 take 1 tablet by fredy three times daily tiZANidine (Zanaflex) 4 MG tablet take 1/2 to 1 tablet by mouth three times a day 06/02/2023 Active Start: 04-04-2023 tizanidine Ref ills(s) 0 Start Date: 04/04/23 Status: Ordered Completed/Discontinued Medications Medication Drug Class(es) Dates Sig (Normalized) Sig (Original) acetaminophen 325 mg / HYDROcodone bitartrate 5 mg oral tablet (1 source) Opioid Agonist Start: 03-25-2019 End: 12-28-2019 take 1 tablet by mouth every four to six hours Hydrocodone-Acetam inophen ([place]) 5-325 mg tablet Discontinued 1 TAB PO EVERY 4-6 HOURS 40 7 March 25, 2019 December 28, 2019 7:57am cimetidine 200 mg oral tablet (1 source) Histamine-2 Receptor Antagonist Start: 03-25-2019 End: 12-28-2019 take 1 tablet by mouth once daily Cimetidine (Acid Information Systems Security Officer (Cimetidine)) 200 mg tablet Discontinued 200 MG PO Daily March 25, 2019 12:00am December 28, 2019 8:01am COMPOUNDED PRESCRIPTION (7 sources) Start: 08-09-2011 COMPOUNDED PRESCRIPTION Apply to affected area. 2 08/09/2011 Active Comment on above: Apply to affected ar ea. 1 ml erenumab-aooe 70 mg/ml auto-injector (1 source) Start: 03-25-2019 End: 12-28-2019 inject 70 mg by subcutaneous injection every month Erenumab-Aooe (Aimovig Autoinjector) 70 mg/mL auto-injector Discontinued 70 MG SUBCUT every month March 25, 2019 12:00am December 28, 2019 7:58am topiramate 100 mg oral tablet (1 source) Start: 12-28-2019 End: 04-29-2022 take 100 mg by mouth once daily Topiramate Discontinued 100 MG PO Daily December 28, 2019 1:00am April 29, 2022 10:06am tretinoin 0.25 mg/ml topical cream (7 sources) Retinoid Start: 06-20-2020 tretinoin (RETIN-A) 0.025 % topical cream apply to affected area once every other day. May begin twice daily PRN 30 g 0 06/20/2020 Active Comment on above: apply to affected ar ea once every other day. 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 Anxiety disorders (20 sources) Anxiety; Translations: [Anxiety disorder] Onset: 2 08-29-2021 Chronic Attention-deficit, conduct, and disruptive behavior disorders (20 sources) Attention deficit hyperactivity disorder; Translations: [Attention-deficit hyperactivity disorder, unspecified type] Onset: 2 08-26-2022 Chronic Cancer of cervix (15 sources) Malignant tumor of cervix 08-29-2021 Chronic Cancer of cervix (15 sources) History of malignant neoplasm of cervix 08-29-2021 Episodic Chronic obstructive pulmonary disease and bronchiectasis (18 sources) Chronic obstructive lung disease; Translations: [Chronic obstructive pulmonary disease, unspecified] Onset: 3 08-29-2021 Chronic Complications of surgical procedures or medical care (1 source) Abscess; Translations: [Infection following a procedure, other surgical site, initial encounter] 05-22-2022 Episodic Deficiency and other anemia (17 sources) Anemia; Translations: [Anemia, unspecified] Onset: 3 08-29-2021 Episodic Disorders of lipid metabolism (20 sources) Hypercholesterolemia; Translations: [Hyperlipidemia] 08-29-2021 Chronic Headache; including migraine (20 sources) Migraine; Translations: [Migraine with aura] Onset: 4 08-29-2021 Chronic Immunizations and screening for infectious disease (1 source) Vaccination given; Translations: [Encounter for immunization] Onset: 3 Episodic Menopausal disorders (2 sources) Menorrhagia; Translations: [Excessive bleeding in the premenopausal period] 05-14-2022 Chronic Miscellaneous mental health disorders (2 sources) Primary insomnia; Translations: [Primary insomnia] Onset: 2 03-25-2024 Chronic Mood disorders (14 sources) Mild recurrent major depression; 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, recurrent, mild] Onset: 3 Chronic Nutritional deficiencies (8 sources) Decreased vitamin D 06-17-2023 Chronic Other gastrointestinal disorders (1 source) Dysphagia; Translations: [Dysphagia, unspecified] 12-28-2019 Episodic Other gastrointestinal disorders (1 source) H/O: gastrointestinal disease; Translations: [Personal history of other diseases of the digestive system] Onset: 3 Episodic Other hereditary and degenerative nervous system conditions (13 sources) Restless legs; Translations: [Restless legs syndrome] Onset: 8 Chronic Other nervous system disorders (3 sources) Nerve root disorder 12-30-2022 Chronic Other nervous system disorders (2 sources) Right leg peripheral neuropathy; Translations: [Lesion of lateral popliteal nerve, right lower limb] Onset: 3 03-25-2024 Chronic Other nervous system disorders (2 sources) Chronic pain; Translations: [Other chronic pain] Onset: 3 03-25-2024 Chronic Other nutritional; endocrine; and metabolic disorders (19 sources) Obesity; Translations: [Obesity, unspecified] Onset: 2 08-29-2021 Chronic Other nutritional; endocrine; and metabolic disorders (10 sources) Obese class I; Translations: [Body mass index (BMI) 32.0-32.9, adult] Onset: 2 Chronic Other nutritional; endocrine; and metabolic disorders (3 sources) Body mass index 30+ - obesity 08-26-2022 Chronic Other screening for suspected conditions (not mental disorders or infectious disease) (5 sources) Diabetic monitoring status; Translations: [Encounter for screening for diabetes mellitus] Onset: 3 Episodic Other skin disorders (2 sources) Podopompholyx; Translations: [Dyshidrosis [pompholyx]] Onset: 2 Episodic Residual codes; unclassified (15 sources) Obstructive sleep apnea syndrome 08-29-2021 Chronic Residual codes; unclassified (2 sources) Hypersomnia; Translations: [Hypersomnia, unspecified] Onset: 2 03-25-2024 Chronic Residual codes; unclassified (18 sources) Sleep disorder; Translations: [Sleep disorder, unspecified] Onset: 2 08-29-2021 Episodic Residual codes; unclassified (11 sources) Patient encounter status; Translations: [Encounter for cosmetic surgery] Onset: 6 Episodic Residual codes; unclassified (1 source) Procedure related finding; Translations: [Encounter for cosmetic surgery] Episodic Residual codes; unclassified (1 source) Acquired absence of organ; Translations: [Acquired absence of other specified parts of digestive tract] Onset: 3 Episodic Residual codes; unclassified (2 sources) Encounter for cosmetic surgery; Translations: [Encounter for cosmetic procedure] Onset: 3 Episodic Screening and history of mental health and substance abuse codes (1 source) H/O: Disorder; Translations: [Personal history of nicotine dependence] Onset: 4 Episodic Skin and subcutaneous tissue infections (1 source) Abscess of neck; Translations: [Cutaneous abscess of neck] Onset: 2 Episodic Spondylosis; intervertebral disc disorders; other back problems (4 sources) Displacement of cervical intervertebral disc; Translations: [Other cervical disc displacement, unspecified cervical region] Onset: 8 Chronic Substance-related disorders (20 sources) Smoker; Translations: [Nicotine dependence] Onset: 2 03-10-2021 Chronic Comment on above: Added secondary to d ocumentation in Social History. Unclassified (1 source) N92.4 - Excessive bleeding in the premenopausal period; Translations: [N92.4 - Excessive bleeding in the premenopausal period] Onset: 2 Unclassified (8 sources) History of small bowel obstruction 06-17-2023 Unclassified (1 source) Patient encounter status 06-17-2023 Past or Other Problems Problem Classification Problem Date Documented Da te Episodic/Chronic Nonspecific chest pain (1 source) Other chest pain; Translations: [OTHER CHEST PAIN] Onset: 11-26-2022 Episodic Other aftercare (1 source) Other terminal worker (current) drug therapy; Translations: [OTH HALFWAY CURRENT DRUG THERAPY] Onset: 11-26-2022 Episodic Other connective tissue disease (1 source) Impingement syndrome of left shoulder; Translations: [IMPINGEMENT SYNDROME LEFT SHOULDER] Onset: 11-26-2022 Episodic Other nervous system disorders (2 sources) Paresthesia of lower extremity; Translations: [Paresthesia of skin] Onset: 05-27-2023 03-25-2024 Episodic Other non-traumatic joint disorders (3 sources) Pain in left shoulder; Translations: [PAIN IN LEFT SHOULDER] Onset: 11-24-2022 Episodic Spondylosis; intervertebral disc disorders; other back problems (20 sources) Nerve root disorder; Translations: [Radiculopathy, site unspecified] Onset: 11-24-2017 Episodic Results Test Name Value Interpretation Reference Range Facil ity Coding Summaryon 08-26-2024 Coding Summary HTMLBase 64 SplrtrgoHKu6xJs+PGhl YWQ+RC8FHTHlE69gyGMo bF2vK5ABSSeKXtkwQXSF QXcOIwLniwXfER6ztQZp ZXJu IC8+PO9rJBElIubnfOXy g6Z5pAI3G91emi3gBWpp mTB6FTRqCiGyemenu0hx iSu7BXizGjwsOrRx GOHclH25QXH1qX18Ev86 ePZiyLYpo4cyuOk5HuKw CVQbIYG6zTqeKTazv2Yn QBStP07pzOFvy8B7 IGNvbGxhcHNlOyBlbXB0 aL0cSHyndilmn9shxjvm Zcp0ju96nCSou7T2aQC4 U5OjdrH8OKHifBAj InhynRNClV5yxhjmg3sk otjgOwLhKGXlPPh8OLt9 OCEaoOzpUrCaQK48OLR9 GPHaieVaT7AgIAVr kPhxJsI8c1F5Ih8UO3TC ZelpB7SOOYCZSDqykSS+ PE04vj17U0DpZukbIdh0 CRDfEQS4pEQ6bM1c QQPgUJtlr4S7nDE7D1Ll emJqzq2fa9bbNRUlWEgn V14vxIOrw3Y7REQusPF7 TPGneHgeRhAvtQ37 Oyc+FGIspCujo5XeMuzn z9wud9oczKu6SllnENKz fwFfzLioZDS8f8MpKq7w OCQahSG2bWM7fC9x YyMxIdB6YKrgT429AwEp nBAgGazoX68kG2YmhLT+ IFOiCpb1ACClrKfsUR3n N6CqXKDlgjskfGDx sPqmTB7xWFIbjzcgFISl lH3pJDRiQ2j9DkPnQiM6 UVcwN9PnNEMcvijfEx68 gJ6oVkNaDzV0FFfq N2OwjuW0ALOmcQXtYWzd OEA6T71az8G9EGTlKKWj ODB8wQH5cH5olHryqhka bGVmdDsgdmVydGlj CGqlHIgfG477PUYbaMnr PkNvZGluZyBEYXRlOiAg MTAvMjQvMjAyNDwvdGQ+ LCUuKCI8aUcwGKTw hDGfJXopXx1wqBgbyExn YM6dVOEmsevcKQMlcC7z HERwyUEjiQrbTK5fAJUv ahorc702UwKjDRV2 IGBrwBCnR7VjcC2bPeGc TAWoWCTfW7LzeEKnIVjy T702MFylTkE4COAefdCk N6NoMTYqxCqoDlM6 q6F1Gw7No8QxrlnvZ3Sj aTAdUeOpPulcNRc0Q3Dz PjwvdHI+MD76TYHyTY31 OEm4PBV5kFypDZau CKAcD5WjlJ7aGnDeIIBm ZGRkOyc+PHRhYmxlIHdp ZHRoPScxMDAlJyBzdHls XG4oZa1hAQNvFJDj jQjvvXYyUxQbm8pbFKAz RFzcFZ0cmZedS9NspVG7 FLOac9r9Hm59S78sD9Nx dXA+GNFrcZF6xIJ1 oC2iJnFdHwN2LBjeC895 HwEkaWKmNdezr6uuc1gp vJy8RwM7BQLpeiDcpHga HAM4h4JgXe85A54m IHdpZHRoPSIxNSUiIHZh tNgopf8dbV3bPp3+PGNv xBO3mZA8gY7sRqAgUfF9 BQecM926KtRexPBa Fwivo7skw3fbvCv7VbQp XNHmagPkiUtdRBW9n5My Zr74O2AhtQcfr7QfKet5 wb47dSDcn2V0iTI9 B6EiDILdmlswhLFmnVje LO9gNEDfimwuXDRijG0q VKPqY3g5NsWpNbM1SMui Y2YtqvP9WSCrwICn SNCdaAKRyP0jhujtf1te hshaXrVhGGLfKQn1RGa4 MXWsrLspQwRpOOC6LkB0 YTZ7fJIcsX6aeCpd bnixvC6kKbv+TUB8vDHq qWBRPH5hPupgjPA+PHRk PAP6aDrbOPrgMATjdM1w NSWsG7t5JyKxWnU8 HTrzO1BtihX1GBCoiIMm SFQdlWQAeU4ocxuqi7jc azazXlDpWSSqFLm0QKb9 LWFsaWduOiBsZWZ0 MhZ9MZT9kMEbzA5txXee ectvjF1nVxf+QmlydGgg RCG7JWo6I4KpXug0HYVa aWwkRV1keICcLJhs Dg8mmFptePdpNU5jAFLa ojanr386SbJij0nvGGNr uXRnHGisWYL6H94vc6X0 OOXsPMFhVWO4yCG8 fK7qqAntjbxmlALjmNfc ocVqzUrpGXpkSDloV776 MBWaqAwmEaMpSFr1M2Bt Elx4XFUnaYjyWD5q kSGcINueUz6nlWxepZne MU9bLTStnbpdr556SoLt n1kaUBNvxHYcBWniQHY2 G81ri3Z5ZGMaCJBo XYN9hVH9qQ4oiTroplkl bGVmdDsgdmVydGljYWwt XBipF711ICNxxFyxAwIs dIy3E5HrZao1QEAm nMmrRB5tvVPoUWkkBn0f hFmegLldGU9jZLClajij h509RvIxj0zaDCCidADw NKvgGKE0O75vb0T5 GUUcDZBwYXM4pGX7jX9d bGlnbjogbGVmdDsgdmVy xZqfHYadNPimN776OZHb cDsnPlBhdGllbnQg IVecHYz1C4NkEjcxsAJ+ VA76KOTgII47xKSiwXLk x0phpGj3AxZyGYSmFMG0 pFniJAleb0XeFWGz W53xhIPtl1K1GJRozJzf kLSaNoVsiFJ6yS1qAOag ypmhj0jnjoqvTrvrm1kv ha62qK73K54uXCba ZHRoPSIzMCUiIHZhbGln uw2ysJ8oRi9+PGNvbCB3 yQH3bZ6zFFIoYbQ4SDik P767TvWvnWKrPkxj y7ksw6icaHu1SjV2LRSq rnFvoGxoFWW3t6QaNk70 O47wTSlaKPUcFEQzZLBr FFFceGqzcx0bfT9m Ii8+QKRnuCU8jCH4aX3l OhJnUkF8NAqmE236BnNi yWYuJbqgK94zF8CgjKL+ YGDgDcq4PVJhfYmr NQ3jvLGlXYjzVk6qAUG4 EaHxAqSwOLcuZ2BiZUPe yalethjltHC8AKBqARHe sD11Nv0pmUicNYIn rNXVaN2nxgdgw3ydgdci TxAtUYPbFVp0TSw6SHAj sZeaJsCmGAQ7BlJ9DIQ3 vVXguC8rjBsallqk aG6kU7QpZKEjcjniEj38 zS8nEwIbNqC7DIjnFkh+ RpANCXAuUAZYCz6PZMSQ RTwvdGQ+PHRkIHN0 gTvwZQvhJMTdoQ6uTVNb X1k9SjZdVkX9XYygN0Zd LWJtgmrbYi72wF0iTxUk QkL7ENvlM3DaroZ4 SAKzoGCjWPpiZWK5P70v o4U6SPDeCYBzZYG5xUH7 mI5owRezmsqegIJeqKgn dmVydGljYWwtYWxp Y748SJIihBhvGbPtAvBj VfY0RoE1N5GpElf1DACt xXwkWF0dgIKpUIrgXq4t pVedeTkrMZ6xJKYr ucxdVJNmkF7eYWBdsLLf gGyyYV1cEIGftmyde009 YtTvLPJ2ZVBgjURoG1Wb vF4qMcOgKKCrPKMq L9BgbDCbMPwjJ862CLdz GoW0IXSzvyBqU8IpDYIk gCafIeL1j8F3Tw34JIDE ZWFyczwvdGQ+PHRk IQI9qEwzFNmyELQktJ4u DZXkK5k3NqEkAjB1HPce L8ObSIGgqthuIo63xA9r EaIaVsL2IMclL8Qz ulN9HQNkcDJkMMrlNFF7 L66tc6Z6JXMnLZKeTBP2 rYC0qB5ejRzoezgbvDTp dDsgdmVydGljYWwt XMobE935RWRvqPwoZgLD TUFMRTwvdGQ+PHRkIHN0 pXqrJAvfXKQtyT5dSVBo K0i4QqRtReM6IYds X1ZiAVVqtbulSz18iT7m LnEkPcI8ZYepQ6IysmZ3 GISufDBwIEemHCC6S02y v2F4DWOyIJQhVHY5 oPV7vC3yfQrkqtkxiIEw dDsgdmVydGljYWwtYWxp R471XEGlcCksMwIoJTGg GD6niZjmxVK+PC90 lw24L7KlUqirQrx1MTJh XXF2lPW5rU0iTRLcPMvk b6A9aTL8A6HsobQqrq8m d3ldCVVeYPzxL46l nCMfr2F2BLTgwAZ8KHRr tZlfNxMfdL63Rcj+PGNv fUonm7EbAagfj9nbq2pp hVg5KzZgLACbnfKb qCtmEGH7u0VjVg65V38v IHdpZHRoPSIzMCUiIHZh zZhday5odW0fGe2+PGNv aEE5vKE1jG4nWyIu TxD3KYmsL953JyVuyIEl Ekaqp0twg8ezaUo5UpEl WYWxllXapDeuVHT6c0Wt Sd45T5DuyCnfw8Hx Kus1bp63cFDft2M0eJC2 P7YmZMWscequoNWqrSsz PW3cJRPdnnavCYBacK4g TRKeT9u6OkRlBdZ4 BZkeW4FeddM5NEBmkJAd KOWuyKTExR1exxsir7hv jtbaMnIpAYSbDAf4WDg1 LWFsaWduOiBsZWZ0 QcP7CUP9uXQtmM4ziEbl hgaveB0hVuc+QUr2i1cv wBThYL4bwQD3VG65CJ19 tPEtj0O5rGI5N1Xn CAHsecuqlnqogYG7PFFo LURzoW45Kt2jxHkiEj1q LFQzHXO8AKTnfFBfX3Ic eK9oSbAuMFDkELPi D7WkgBIcARzbA129NIoe JjN3WJLpiwOdY5KgTEEk aIgcRfP1k0A2Wt4RSU55 IX78BL85jFNvp5C8 eFP3Q5DzQYIsjsmbabxj aGG0TBMgRMQueL79Tu9f zAgxSw2uGNGpFGD8OEZg nILlC1RoqY9qMbKs RPReBPZgG7NvdMHmTJkb N489RXsbVkA1WIMnaiNi S3QaLMKuxZcgJdY3x4K4 Jq1DRt37GB94CV47 zHAsl6A8uYF3H1GrCWZi sxzbbnmaiJH1QWEuOJMl eY37Zn1fbZygJu9qNCPn ZPL6HOHnmAMsX4Et fC9mRnSkAPRlBKDfW4Kr eNIkGBycQ672WDhfDxE7 NJNenvVbM4ThBFNzqHqe FnR7l9B8Hh8KLZmo fsj3Q5OuNxifwHB+PC90 KYMpGW46kXMjlTSlm5xi eTw6KqAhEDReKWN1qEws QKwqw4AxZKLrJ90h bGF (more content not included)... Normal [facility] ED Clinical Summaryon 2023 ED Clinical Summary [facility] - Emergency Department [address] [place] [id number] ED Clinical Summary PERSON INFORMATION Name: TOOTIE NICOLE Age: 48 Years Sex: FEMALE : 1975 MRN: Acct#: Visit Reason: Neck pain; Headache; HEADACHE Arrival: 08/14/2024 23:19:27 Discharge: 08/15/2024 00:35:00 LOS: 000 01:16 Check In: 08/14/2024 23:19:27 Checkout:08/15/2024 00:35:00 Address: [address] [place] [id number] PCP: Romeo Chaidez DO PROVIDER INFORMATION Provider Role Assigned Unassigned Dameon Varner MD ED Provider 08/14/2024 23:20:21 Laly Kaur TRAFFIC WAREHOUSE SUPERVISOR Nurse 08/14/2024 23:32:00 VITALS INFORMATION Vital Sign Triage Latest Temperature Tympanic Temperature Temporal Artery Pulse Rate 78 bpm 78 bpm O2 Sat 98 % 98 % Respiratory Rate 18 br/min 18 br/min Blood Pressure /84 mmHg /84 mmHg MEDICAL INFORMATION Medications Given: Medication Dose Route methylPREDNISolone (SOLU-Medrol) 125 mg Intramuscular ketorolac 60 mg Intramuscular diphenhydrAMINE 50 mg Intramuscular metoclopramide 10 mg Intramuscular LORazepam (LORazepam injection) 1 mg Intramuscular Allergy Information: traMADol; Latex Allergy; Adhesive Bandage; Phenergan; Imitrex; penicillin PHYSICIAN DOCUMENTATION DISCHARGE INFORMATION: Discharge Disposition: Home Discharge Location: Home PATIENT EDUCATION INFORMATION Instructions: Cervical Radiculopathy, Favh-qh-Xbox; Chronic Migraine Headache, Czpj-pm-Yhjw Follow-Up: With: Address: When: [place] [address] [place] [address] Within 3 to 5 days DIAGNOSIS: 1:Migraine headache; 2:Cervical radiculopathy Patient Understands: Yes - Patient/family/careg iver verbalizes understanding of instructions given Comment: Normal [facility] ED Patient Summaryon 024 ED Patient Summary [facility] - Emergency Department [address] [place], [place] [id number] PATIENT DISCHARGE INSTRUCTIONS Patient Information Name: TOOTIE NICOLE Age: 48 Years Date of : 1975 Reason For Visit: Neck pain; Headache; HEADACHE Arrival Time: 08/14/2024 23:19:27 Primary Care Physician: Romeo Chaidez DO Attending Physician: Dameon Varner MD Comment: Visit Diagnosis: Diagnoses This Visit Cervical radiculopathy (M54.12) Headache ([id number]) Migraine headache (G43.909) Neck pain ([id number]) The Pharmacy at [facility] is open Friday through Friday from 9A to 6P and Friday and Friday from 9A to 5P Prescription Information: If you have been given a prescription for narcotics, seek immediate medical attention if you have any difficulty breathing or any sudden status changes such as confusion and sleepiness. If you or anyone you know is experiencing suicidal thoughts, mental health, alcohol and/or drug addiction problems; contact the [facility] 26/05 Crisis Hotline -Text 3BXTX si 349877. If you received any narcotics, sedation, or any other medication that causes drowsiness for the next 24 hours, unless otherwise directed: ? Do not drive a car. ? Do not operate machinery such as power tools, lawn mowers, drills, sewing machines, or stoves ? Avoid alcoholic beverages and drugs for allergies, nerves, or sleep ? Do not make important personal or business decisions or sign any legal documents With: Address: When: Romeo Chaidez DO [address] [place] [id number] Within 3 to 5 days Medication Information: The exam and treatment you received today in the [facility] Emergency Department were for an urgent problem and are not intended as complete care. It is important for you to follow up with a doctor, nurse practitioner, or physician?s stores assistant for ongoing care. If your symptoms become worse or you do not improve as expected and you are unable to reach your usual health care provider, you should return to the Emergency Department, we are available 24 hours a day. For those patients who have received Radiology results, the interpretation of your X-ray as given to you by our Emergency Department physician is only a preliminary report. The Radiologist will review your films and if there is a change in the diagnosis you will be notified by phone. Please make sure you have provided a working phone number so we can reach you if necessary. In the event that you had a lab culture while you were a patient in the Emergency Department, you will be notified by phone if there is a need to change your antibiotic. Please make sure you have provided a working phone number so we can reach you if necessary. [facility] Emergency Department has provided you with a complete list of medications post discharge. Please inform your customs patrol officer/provider of your visit and for further instruction on these medications. Any specific questions regarding your chronic medications and dosages should be discussed with your primary care physician(s) and/or pharmacist. Additional medications on your home medication list not specifically addressed. Please contact the ordering physician if you have questions about these medications. amphetamine-dextroam phetamine (Adderall) 20 Milligram every day. clobetasol topical (clobetasol 0.05% topical ointment) 1 jyoti Topical (on the skin) 2 times per day. cyclobenzaprine (cyclobenzaprine 10 mg oral tablet) 1 tab(s) Oral (given by mouth) 3 times per day as needed for spasm. dupilumab (Dupixent Pre-filled Pen 300 mg/2 mL subcutaneous solution) estradiol (estradiol 0.05 mg/24 hours weekly transdermal film, extended release) 1 patch(es). FLUoxetine (PROzac 20 mg oral capsule) 1 cap(s) every day. hydrOXYzine (hydrOXYzine hydrochloride 10 mg oral tablet) TAKE 1 TABLET BY MOUTH AT BEDTIME. ibuprofen (ibuprofen 800 mg oral tablet) 1 tab(s) Oral (given by mouth) 3 times per day as needed as needed for pain. meloxicam (meloxicam 7.5 mg oral tablet) 1 tab(s) Oral (given by mouth) every day. onabotulinumtoxinA (Botox 100 units injection) 1.25 unit(s) Intramuscular every 3 months. pramipexole (pramipexole 0.5 mg oral tablet) 1 tab(s) Oral (given by mouth) 3 times per day. predniSONE (predniSONE 20 mg oral tablet) 1 tab(s) Oral (given by mouth) 2 times per day. Visit Information Allergies: Substance Reaction Symptoms Type Comments Imitrex Drug penicillin Drug Phenergan Drug traMADol Secure, adhesive tape Drug Latex Allergy Environment Adhesive Bandage Other Vital Signs: Vitals and Measurements this Visit (last charted value for your 08/14/2024 visit) Vital Signs This Visit Temperature Oral: 36.7 DegC Peripheral Pulse Rate: 78 bpm Respiratory Rate: 18 br/min Systolic Blood Pressure: 103 mmHg Diasto (more content not included)... Normal [facility] Medicine Office/Clini c Noteon 08-12-2024 Family Medicine Office/Clinic Note Family Medicine Office/Clinic Note Chief Complaint 3 month F/u HPI Staff Patient here today for 3 month F/U ADHD SHIRIN 05/18/24 Labs 10/01/23 Patient states she had an accident at [facility] and she has had many aches and pains. She is having Neck surgery 09/27/24 Dr Clarke in [place]. She also asking about having labs for gout. 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 Sarah DAVIS Smokers/ former smokers: Low dose lung CT: 06/04/2024 - Negative, continue with annual screening List of Providers: Neurology - Dr. Lisa Martínez Materials Assistant - Dr. Sarah DAVIS Derm - Dr. Blanco Ortho - Dr. Langford - Nas The patient presents for follow-up for ADHD medications. She is not having any medication problems at this time. She states that she is having neck surgery with Dr. Clarke at [place] on 09/17/2024. She has been having pain radiating down her right arm and is hopeful that the surgery can help this but she says the main reason she is having the neck surgery is because of years of neck problems. Patient was placed on Meloxicam and cyclobenzaprine for pain. Patient's ADHD was discussed with the patient and its impact on her outlook and pain perception. Patient has not had labs since 10/01/2023 Review of Systems PHQ Score Initial Depression Screen Score: 0 SCORE Physical Exam Vitals & Measurements HR: 89(Peripheral) BP: 114/70 SpO2: 98% HT: 64 in HT: 163 cm WT: 82 kg WT: 180.4 lb BMI: 30.86 Constitutional: Vital signs reviewed; TOOTIE NICOLE is well nourished, no acute distress Lungs: Clear to auscultation, non-labored respiration - expansion is symmetric Heart: Normal rate and rhythm, no murmurs MSK: Normal gait Skin: Deferred Neurologic: Awake, alert and oriented, speech is normal Psychiatric: Cooperative, appropriate mood and affect Assessment/Plan 1. ADHD (F90.9: Attention-deficit hyperactivity disorder, unspecified type) Chronic Stable Fairly good control of symptoms Continue Adderall Tolerates medication well Follow up in 3 months 2. Cervical disc herniation (M50.20: Other cervical disc displacement, unspecified cervical region) Chronic Has surgery with Dr. Clarke from [place] 09/17/2024 Placed on cyclobenzaprine 5 mg BID Meloxicam 7.5 mg for pain Would like Dr. Clarke to send notes 3. Cervical radiculopathy at C8 (M54.12: Radiculopathy, cervical region) see #2 4. Smoker (F17.200: Nicotine dependence, unspecified, uncomplicated) Chronic Current everyday smoker Sub-optimal improvement in smoking cessation Low Dose CT on 06/04/2024 was negative Continue with Annual low dose CT Adult BMI 30.0-30.9 kg/sq m (Z68.30: Body mass index [BMI] 30.0-30.9, adult) Chronic No change since last visit Spasm of cervical paraspinous muscle (M62.838: Other muscle spasm) Chronic Stable Cyclobenzaprine 5 mg BID Total time spent TODAY preparing the chart for today's appt which included reviewing the patient's medical record, updating the patient's history in the EMR, time spent face to face with the patient including education about their conditions and counseling on how to manage, care coordination and time spent documenting, reviewing, and ordering tests was 30 mins. Patient was counseled on the above diagnosis and treatment, all questions were answered and patient agrees to adhere to the plan above. Risk and benefits of appropriate procedures and medications were reviewed as well with patient, who voiced understanding and agreement. Patient, when appropriate, was counseled on smoking cessation and/or continuing to abstain from nicotine/tobacco products as appropriate based on history; as smoking/nicotine can contribute to increased pain overall and decreased wound healing. Patient counseled on maintaining a healthy BMI as part of the total treatment of their pain and to reduce stress/strain on joints. While I advocate for body image positivity, we know that all cause morbidity and mortality increases as the BMI rises above 25 and worse above a BMI of 30. Patient invited to return here for an additional appt when needed or they may call to speak with the nurse with any questions or concerns that arise in the mean time. Follow-up With When Contact Information Romeo Chaidez DO, [facility] (more content not included)... Normal [place] Comment on above: Result Comment: Elec tronically Signed By: Romeo Chaidez DO\.br\Date and Time Signed: 08/12/24 09:07 EDT\.br\Electronically Co-Signed By: Rustam Warner\.br\Date and Time Co-Signed: 08/11/24 15:58 EDT Ambulatory Visit Summaryon 1 Ambulatory Visit Summary Ambulatory Visit Summary TOOTIE NICOLE :1975 Visit Date:08/11/2024 Ambulatory Visit Instructions Your Diagnosis ADHD Cervical disc herniation Cervical radiculopathy at C8 Smoker Adult BMI 30.0-30.9 kg/sq m Spasm of cervical paraspinous muscle Your Care Team Attending Physician - Romeo Chaidez DO Primary Care Physician - Romeo Chaidez DO This Is Your Medications List cyclobenzaprine (cyclobenzaprine 10 mg Tab) meloxicam (meloxicam 7.5 mg Tab) Contact prescribing physician if questions or concerns albuterol (albuterol 90 mcg/inh inhalation powder) amphetamine-dextroam phetamine (Adderall XR 10 mg Cap-ER) amphetamine-dextroam phetamine (Adderall XR 20 mg Cap-ER) aripiprazole (Abilify 2 mg Tab) dupilumab (Dupixent Pre-filled Pen 300 mg/2 mL subcutaneous solution) estradiol (Estradiol Patch 0.05 mg/24 hours twice weekly transdermal film, extended release) fluoxetine (Prozac 20 mg Cap) hydrOXYzine (hydrOXYzine hydrochloride 25 mg Tab) ketorolac (ketorolac 10 mg Tab) ondansetron (Zofran 4 mg Tab) pramipexole (Mirapex 0.75 mg oral tablet) tizanidine (tiZANidine 2 mg Tab) Procedures Performed Total hysterectomy (05/14/2022), Appendectomy, Breast, Breast implant, Sinus. Discharge Vitals Heart Rate (Peripheral) 89 Blood Pressure 114/70 Height 163 cm Height 64 in Weight 82 kg Weight 180.4 lb BMI 30.86 What to do next Scheduled Follow-Up Appointments Friday 4:00 PM EST With: Romeo Chaidez DO Where: [facility] [place] [address] [place] [address]- You Need to Schedule the Following Appointments Follow Up with Romeo Chaidez DO, XAVIER, PED When: Within 3 months Comments: 20 min slot cyclobenzaprine 5mg twice a day meloxicam 7.5mg daily have the surgeon send us notes f/u 3 months Where: [address] [place] [id number] Medications What How Much When Why Instructions New cyclobenzaprine (cyclobenzaprine 10 mg Tab) 1 Tablets By Mouth 2 times a day as needed for for spasm Spasm of cervical paraspinous muscle Pickup at [facility]/pharmacy #[id number] New meloxicam (meloxicam 7.5 mg Tab) 1 Tablets By Mouth Every day Cervical disc herniation Cervical radiculopathy at C8 Refills: 1 Pickup at [facility]/pharmacy #[id number] Unchanged albuterol (albuterol 90 mcg/ inh inhalation powder) 2 Puffs Inhalation Every 6 hours COPD mixed type Contact prescribing physician if questions or concerns Unchanged amphetamine-dextroam phetamine (Adderall XR 10 mg Cap-ER) 1 Capsules By Mouth Once a day (in the morning) ADHD Contact prescribing physician if questions or concerns Unchanged amphetamine-dextroam phetamine (Adderall XR 20 mg Cap-ER) 1 Capsules By Mouth Once a day (in the morning) ADHD Contact prescribing physician if questions or concerns Unchanged aripiprazole (Abilify 2 mg Tab) 1 Tablets By Mouth Contact prescribing physician if questions or concerns Unchanged dupilumab (Dupixent Pre-filled Pen 300 mg/ 2 mL subcutaneous solution) 300 Milligram Contact prescribing physician if questions or concerns Unchanged estradiol (Estradiol Patch 0.05 mg/ 24 hours twice weekly transdermal film, extended release) apply 1 patch two times a week as directed Contact prescribing physician if questions or concerns Unchanged fluoxetine (Prozac 20 mg Cap) 1 Capsules By Mouth Every day Anxiety Mild recurrent major depression Contact prescribing physician if questions or concerns Unchanged hydrOXYzine (hydrOXYzine hydrochloride 25 mg Tab) 1 Tablets By Mouth At bedtime Dyshydrosis Contact prescribing physician if questions or concerns Unchanged ketorolac (ketorolac 10 mg Tab) Contact prescribing physician if questions or concerns Unchanged ondansetron (Zofran 4 mg Tab) 1 Tablets By Mouth Every 8 hours as needed for Migraine headache Nausea Migraine with aura Contact prescribing physician if questions or concerns Unchanged pramipexole (Mirapex 0.75 mg oral tablet) 1 Tablets By Mouth Every day Restless leg syndrome rx by Dr Martínze Contact prescribing physician if questions or concerns Unchanged tizanidine (tiZANidine 2 mg Tab) 1 Tablets By Mouth At bedtime Migraine with aura Spasm of cervical paraspinous muscle rx by Dr. Martínez Contact prescribing physician if questions or concerns Pharmacy Information [facility]/pharmacy #[id number]: [address], [place] [phone] Allergies Imitrex (Rash) Tape (Chemical burn) penicillin (Rash) Problems Ongoing - Any problem that you are currently receiving treatment for. ADHD Anxiety Cervical disc herniation Cervical radiculopathy at C8 Cigarette smoker within last 12 months COPD mixed type Dyshydrosis History of appendectomy History of cervical cancer History of small bowel obstruction HLD (hyperlipidemia) Low vitamin D level Lumbosacral radiculopathy at S1 Migraine with aura Mild recurrent major depression (more content not included)... [facility] [place] Coding Summaryon 07-27-2024 Coding Summary HTMLBase 64 GqtadchwJEl5mKc+PGhl YWQ+FA6VLPDwL42flBUh oB7pW0ZDDZlRKudeLYCH RVuNQcPwxgJqXI8fpVCr ZXJu IC8+MF8dYBUcPnlplZOo y1C8dHN1U62ebf4ePVlj hAX5NYSfBhDuhqczv6mp mSz8DTkhJhmaCnRm HZZffQ63ATI8pG68Xv97 gJJlqNMzs9xdpYf8VnQq CKDgOYG0vGkaXBgqb0Cc HSNyV22ieARzl9W3 IGNvbGxhcHNlOyBlbXB0 gI6oTUhjaswux0lbrkbp And2jh87cSOyt7I1tQZ3 H0MsubJ3ARPqjWXd XluvtEPKtT9rrdtbm6uv dyvwPmZqPAJaRDz8KUp8 NUYnbCbwKrOuZB27UCQ6 GRLdqlLfO7TyTAGd rLoyXsJ7v7V0On8QG8CD JtmwR4CQXOQGYRtanEU+ RO10jx16Y4LoXsazLfg9 SASlQRO9gUO4bP9o UZHmPIzvo7R4sTL0Z6Oa fnEgwg6wd0zjFOMrVUxn D55vjOCke9Y5WUUrrKC1 ZZIxtLzfJlBrkD40 Oyc+TENzbVrxu7RkBjcz x3ipz7vooYp1RysyGVNe gyMxlFisYLJ4g4VwRk4u VOHciPI6nSE8iC7x EiPhGoS5YKgiK051QqUq kKVpZxxmF93nP6YpeZZ+ JVDbMfz9HKKfzQlxOX3r Q7BhENYvhfnhpBDc tXcqGE4rYMXwhhunWSEv tS0fMZRqR9v0UlUaXjI9 TBtmU2MsIVOrnfjeLo37 zL2yOmPvQfE4NKoe O3AilqQ2TMWrnBQwPPwh ZQT8U33ma5A9QGGdEOCw TXP6iZS0cQ5tuGrwojre bGVmdDsgdmVydGlj ZIpdHLnoL337VYWwkSfq PkNvZGluZyBEYXRlOiAg MDkvMjQvMjAyNDwvdGQ+ CHFkETF4xYfkAJLh uYFmHIjeUr5lwZjmyFtf IW2qTYIrowblLKPxeZ2j LIBfuMPunHlpZY5qZGWa vhweh184IdPoMAX4 ZWVdnUXjJ7FvvP1rUqQv MQNnWODeQ9YofZInCEna F787VOezKjL5UJDjsbPj L2RePIHwmLfiVkX8 u0W6Ta3Ty1ReduyeA5Lb qRLqAgHkBimmHEc6B8Bg PjwvdHI+BR87MUCjSY46 BAq4RKG4sBygKYng FZZsQ6TtgW2rXcBnNOZi ZGRkOyc+PHRhYmxlIHdp ZHRoPScxMDAlJyBzdHls SK9lZc4lECPsVSDt gSovxBWkFwKrl0yaNYTs KTetHL6qhRaeL5DoqCN7 UUJah3d7Rp35L79tZ5Nn dXA+DPMdpVB3gEZ2 bB2iTkQcKwX9TBuxO514 FaLsrYJgQguec3pxt0av eYw6YaO8AFSdfkWhqOhb LPO8f8QrEw42J12n IHdpZHRoPSIxNSUiIHZh aIpsaf4ceW4uEc1+PGNv sID3fDO8wY2lMbYeJvB9 RBdeD515WfZrzBUz Eyrgz5xrj8cxfQc1HjDo YZNhfkCqvYzqUSE8l4Ho Fj76T5OkmHxst9NhSwc7 dl38bUCkh7O1rGR0 C1MjZLBajxtsnEDudPti VS4gAQTqnhxzJGBmyF5a HHGbH1b5FsOzBoT0RYgj N0PsphC1MLSinBZi GZKdwICFcW7zgxucc7ce hukrFqRpVCXgZBp6CYa8 PAAmmHgfSrRyDIO4SqN0 EZF6uHLubO4pqXhk pyqjmB9rUmp+KSR0tLEw zHEAWO8lCbmncGS+PHRk THS7pFkiQUoiBADwuZ0a TTGnJ8x9WeAgBrL5 OMsjA0IbkxM9DQYxbICe VFSvkAOZhQ0llkowl4ri bemkNyEvUBXiHBj6GNp3 LWFsaWduOiBsZWZ0 EuZ5FON9bADskQ8kuTjf gunmmO8uKim+QmlydGgg TNC4LFq8J9WaZch3ROBh fJdbHW1aiWEfFBjw Pr3ocQjawSluAX5hQNSr vcnsr778IgMss3xjIUZg gAYnDKjfRKF4Z35fq5Z5 UGNmORNsGEM6kQM5 fP9obTomxvyukUOpkKqs gxMhnPioEGcdWBlzC407 EPXbcZocBsMlUCp7V3Gg Vkp6VWUieInjVE5g rJZuVRtaId1csOgafDdf BI3oHSCuesjgo920OyMs i7auJNTboXTtGYrpMML6 I32xk8N6LFEeXGXe IHF0eCT4cP6ngUeflzdq bGVmdDsgdmVydGljYWwt WNblL483SFYdaVhkDpEj iJd2K8EkHhd5GMKt tRmpWF3vvQHcVVcqBi3j xFykqFayMH0iFJIrdcup k637AfVgv9jpLBXhdYMk ZWklRUU0B30fi6G3 HNMyPPHfFLZ5hCU8nT4r bGlnbjogbGVmdDsgdmVy iIpxCFcnUXckH177XMVr cDsnPlBhdGllbnQg JHjoJGl9A4XuIlpmdZK+ BT32RFGfLI42mTBqrFPr e0azwYp0AjJoFRDkLUH9 xGgeYFtdf6MgFJYg P05zrUYfc0M8GVOlcArd vMFkEsXnfPV8eB0xZQjl czxcv9djuafxSkjdo3pr wf57yB46W89eYVtp ZHRoPSIzMCUiIHZhbGln ir6fvD6jOl9+PGNvbCB3 xIH8dK0oVMTkKrO7CEiu J578ToXwlURdLedv y8qtn0rvnYd8GdY6AZTo mcBzzUbyKUX2o0KzTj87 Q80aRFoxOGBvXRNmZSTk IQXseVqusg5mhA2n Ii8+CQAxoHR8wPH1jP9t IhHqLrT9XBaxJ149RjLy aOIbNyuiD18rP1QisMN+ JQIsAsp7UGTekYcj IU8ucAJtWWmnMp3kXXZ5 ZyIgAtMiHIuiK3UuVRUg oyjmrriplRL2JEAdCVHh bB35Gu0pxRbzSWFh lSKLmL5gqvbkm9llaura AmRuTPCePQn2PFj9ILWv bHgwBrNyBBH2WyH6XNZ3 lETplU0pcRzogjdy hK8uJ8JmBMPqrxppIk63 jC0jRsKcLqS3ICpaQky+ VxSDYSRrRJKGEc8JUQDF RTwvdGQ+PHRkIHN0 rJkuMUwwPLWlyY1tPIWt N6p9TdXyPpZ3CAfsB4Fm ZNYmgmsgSe33oJ7nFgAl PiZ7GGoyX1GpvgG6 PVVkxUKsUTmlFGA0L95x m7O9RDAsXGBdHJX1fFD8 bY3aqGofbtpujSUqlBkw dmVydGljYWwtYWxp M695GFJxmKlzPtAhMaPd MlN9ZoI0W3JaPwi9VJVf zPxhER6rmDXtUPucLh8y hWpmwEleUN4tKEEb rwtlWCOtnU3iEVBvsMHw kAlhKW5nALTeadlpt744 ZxPfNIU4BQOecZWaD8Nr rI0qMpGgKZMhIZLb Q6IxyLRxOYqfK286APbm ZrO6ZDMfufKiC3EhVRNi mKwpEmE9e2N2Dz78QYWT ZWFyczwvdGQ+PHRk URI1wZqkDFofZTKaoC6r ZUVfK8a4FzPpNwX4RUff J6CgZLXmjtsmTl76pR4x IoViXiY6AOqbW6Rv mcZ4TRSodTRwDGouFTV4 M53sw5I5AIVcEVXhCSC2 uVN0tM4hhWqbkxjwcPRu dDsgdmVydGljYWwt JOdxA568OXKdhMhcIwWJ TUFMRTwvdGQ+PHRkIHN0 fTnwACrrOIEhjG7cHZMm G3q2XaLwCbC0RJtv G3IcCJGdsouoFy26kD2f WrIrEjS7SQijH0GyqmU8 HSTqzSCuBWoySML6W54i x5X0AGIqVBSkWML0 aTS3jF9wxCrjwdmglBBc dDsgdmVydGljYWwtYWxp X276WUBmlSezCyLbOHYa LB7axZetePM+PC90 hz22S3MaRvykNii6PRMx RST6hCS7bD3sLGAeEPfi q8C0hXL9S3KnvwPcos7m c7qaJPEqMEsxO94c lVEne5X9BVRahFD5QTZd aNgyEdSdqI58Zop+PGNv fRkqu9JdLfayw9kyu4qz fXm8UrYuHHXdrvDj tPtdODP0h5XtDm60Y14c IHdpZHRoPSIzMCUiIHZh eKoqns2mrZ1qTp3+PGNv vYS2tLE6xW7pZxIo LkV2DHmdI279PiXqwORx Xcjse1abz8atsXk7DtAc DTGmnlIpqLqrTKZ7f0Eg Fj85N1GdfFley7Xy Fqb4ci52kUEvh1T5lSN1 H7HgQWWuymkatQQjpLpt WY1lGOFvnowaUYYumA9o NVDpQ8z5IrQxKxG5 VVxlE2PfxmP0ADGlwFZb BZOesBTCzA0mpsvtm9qc xqmzZfDjVWEqFGx9EJs8 LWFsaWduOiBsZWZ0 HlW1JMN8lVWpiX3vmXdi gggpgP6vIqv+XAe8m6yt dSLtGT4wfBL6UV43LN12 wOQhe4D7yRU3Q6Um WLPbczxoshjtuTH5GWWj BDQcbV46Ef7dpKllNz5x XNYjKUH3ODEkeXBhN4Zf yP6bBzWsDVEvFOOv R5OqvHBfMTecQ875RCvg RoW4YWRsbnDhJ8XtGLWy xEsxPyU9n2J5Cf1OLH82 WS75QO74xBIpx1A5 xHI1Q9YhIUXbsfrxmylt yNG9SZOoJOHlhO34Tp7p sRnnXx8xGVZgEYP3MFCb gVKaX7MzfH9yUuSc MQHiWMKqW6MopPBaPHiz F890JIpwIiS7HGNkcpPc O3HnNPPhzJwhKhA4j4Y5 Kc6QLg65IC67CJ33 sEEph8Y6tQU5Y4ExGEUj xaxkhsxleJC2SFVoCQOo oG21Ao5rwHcwUq4vYJLf PBR4RMUvgAVpX6Ns wV2vLzTgWJYpPDFuF9Qv nVCxHWvpR090PQmrAbR5 ZPPsexZrG1CdIZHsxBol KxM1m3L1Yt3UEUsx mes6K1WgNikgmNL+PC90 HJWxJM21aZMylLFnf9mp tWa2YiQlEYEpQCQ4bFmy AEmmg7OrOGHuO02s bGF (more content not included)... [facility] CT Spine Cervical w/o Contra rakan 07-19-2024 CT Spine Cervical w/o Contrast EXAMINATION: CT Spine Cervical w/o Contrast HISTORY: Neck pain with radiculopathy and paresthesia for couple days. TECHNIQUE: Axial CT scans through the cervical spine were obtained without contrast administration. Sagittal and coronal reconstruction images were obtained. Dose reduction techniques were achieved by using: automated exposure control and/or adjustment of mA and /or kV according to patient size and/or the use of an iterative reconstruction technique. COMPARISON: None. FINDINGS: Straightening of the cervical spine is shown. At C5-C6, decreased disc height and mild posterior discovertebral complex without central spinal stenosis. Moderate left and moderate-severe right neural foraminal stenosis is secondary to decreased disc height and uncovertebral hypertrophy. The prevertebral soft tissue space appears normal. Visualized intracranial contents appear normal. The visualized neck shows no adenopathy. Visualized lung apices are clear. IMPRESSION: Straightening of the cervical spine, likely due to positioning or muscle spasm. Discovertebral degenerative changes at C5-C6 without central spinal stenosis. Moderate left and moderate-severe right neural foraminal stenosis at this C5-C6 level secondary to decreased disc height and uncovertebral hypertrophy. Final Dictated by: Aftab Pang MD Dictated DT/TM: 07/19/24 8:05 Signed (Electronic Signature): Aftab Pang MD 07/19/24 8:09 pm Technologist: Nayla YUSUF [facility] ED Clinical Summaryon 2023 ED Clinical Summary [facility] - Emergency Department [address] [place] [id number] ED Clinical Summary PERSON INFORMATION Name: TOOTIE NICOLE Age: 48 Years Sex: FEMALE : 1975 MRN: Acct#: Visit Reason: Neck injury; NECK RT ARM PAIN Arrival: 07/19/2024 18:33:44 Discharge: 07/19/2024 20:53:00 LOS: 000 02:20 Check In: 07/19/2024 18:33:44 Checkout:07/19/2024 20:53:00 Address: [address] [place] [address] PCP: Romeo Chaidez DO PROVIDER INFORMATION Provider Role Assigned Unassigned Angela Fisher CNP ED PA 07/19/2024 18:36:34 Alona Acosta TRAFFIC WAREHOUSE SUPERVISOR Nurse 07/19/2024 18:48:05 Jared RN, Viridiana Brock ED Nurse 07/19/2024 19:36:23 VITALS INFORMATION Vital Sign Triage Latest Temperature Tympanic Temperature Temporal Artery Pulse Rate O2 Sat 98 % 98 % Respiratory Rate 18 br/min 18 br/min Blood Pressure /76 mmHg /76 mmHg MEDICAL INFORMATION Medications Given: Medication Dose Route lidocaine topical (Lidocaine 4% Patch) 4 % Topical orphenadrine 60 mg Intramuscular HYDROmorphone (Dilaudid) 1 mg Intramuscular predniSONE 60 mg Oral Allergy Information: traMADol; Latex Allergy; Adhesive Bandage; Phenergan; Imitrex; penicillin PHYSICIAN DOCUMENTATION DISCHARGE INFORMATION: Discharge Disposition: Home Discharge Location: PATIENT EDUCATION INFORMATION Instructions: Muscle Strain Follow-Up: With: Address: When: Romeo Chaidez [address] [place] [address] [facility] ([id number] Within 3 to 5 days Comments: Take steroids as directed until complete. Use muscle relaxer and pain medication for muscle spasming and pain. Please contact orthopedic doctor that you have seen in the past for follow-up. Ice as often as possible over the next 24 to 36 hours. DIAGNOSIS: Cervical muscle strain; Neck muscle spasm Patient Understands: Yes - Patient/family/careg iver verbalizes understanding of instructions given Comment: [facility] ED Note-Nursingon 07-19-2024 ED Note-Nursing PT. C/O right sided neck pain that radiates to the head, right side of chest and arm. Pt. is unable to describe the pain. PT. states that the pain started a couple of days ago and she attempted to use a TENS stimulator but it made the pain worse. PT. states that she occasionally has tingling in her feet. Pt. has not taken any medications for pain today. PT. is A&O X4. PT. has a steady gait. [facility] ED Patient Summaryon 024 ED Patient Summary [facility] - Emergency Department [address] [place], [place] [id number] PATIENT DISCHARGE INSTRUCTIONS Patient Information Name: TOOTIE NICOLE Age: 48 Years Date of : 1975 Reason For Visit: Neck injury; NECK RT ARM PAIN Arrival Time: 07/19/2024 18:33:44 Primary Care Physician: Romeo Chaidez DO Attending Physician: Brenna Yoon MD Comment: Visit Diagnosis: Diagnoses This Visit Cervical muscle strain (S16.1XXA) Neck injury ([id number]) Neck muscle spasm (M62.838) The Pharmacy at [facility] is open Friday through Friday from 9A to 6P and Friday and Friday from 9A to 5P Prescription Information: If you have been given a prescription for narcotics, seek immediate medical attention if you have any difficulty breathing or any sudden status changes such as confusion and sleepiness. If you or anyone you know is experiencing suicidal thoughts, mental health, alcohol and/or drug addiction problems; contact the [facility] 26/05 Crisis Hotline -Sknh 2HIFH [place] 513120. If you received any narcotics, sedation, or any other medication that causes drowsiness for the next 24 hours, unless otherwise directed: ? Do not drive a car. ? Do not operate machinery such as power tools, lawn mowers, drills, sewing machines, or stoves ? Avoid alcoholic beverages and drugs for allergies, nerves, or sleep ? Do not make important personal or business decisions or sign any legal documents With: Address: When: Romeo Chaidez [address] [place] [id number] Business (1) Within 3 to 5 days Comments: Take steroids as directed until complete. Use muscle relaxer and pain medication for muscle spasming and pain. Please contact orthopedic doctor that you have seen in the past for follow-up. Ice as often as possible over the next 24 to 36 hours. Medication Information: The exam and treatment you received today in the [facility] Emergency Department were for an urgent problem and are not intended as complete care. It is important for you to follow up with a doctor, nurse practitioner, or physician?s stores assistant for ongoing care. If your symptoms become worse or you do not improve as expected and you are unable to reach your usual health care provider, you should return to the Emergency Department, we are available 24 hours a day. For those patients who have received Radiology results, the interpretation of your X-ray as given to you by our Emergency Department physician is only a preliminary report. The Radiologist will review your films and if there is a change in the diagnosis you will be notified by phone. Please make sure you have provided a working phone number so we can reach you if necessary. In the event that you had a lab culture while you were a patient in the Emergency Department, you will be notified by phone if there is a need to change your antibiotic. Please make sure you have provided a working phone number so we can reach you if necessary. [facility] Emergency Department has provided you with a complete list of medications post discharge. Please inform your customs patrol officer/provider of your visit and for further instruction on these medications. Any specific questions regarding your chronic medications and dosages should be discussed with your primary care physician(s) and/or pharmacist. New Medications [facility]/pharmacy #[id number], [address], [place] [id number], [phone] acetaminophen-hydroc odone (acetaminophen-hydro codone 325 mg-5 mg oral tablet) 1 tab(s) Oral (given by mouth) every 6 hours. as needed as needed for pain for 3 Days. Refills: 0. cyclobenzaprine (cyclobenzaprine 10 mg oral tablet) 1 tab(s) Oral (given by mouth) 3 times per day as needed for spasm. Refills: 0. predniSONE (predniSONE 20 mg oral tablet) Take 3 tabs by mouth x3 day, then 2 tabs x3 day, then 1 tab x3 day. Refills: 0. Medications to Continue That Have Not Changed Other Medications amphetamine-dextroam phetamine (Adderall) 20 Milligram every day. amphetamine-dextroam phetamine (amphetamine-dextroa mphetamine 10 mg oral capsule, extended release) 1 cap(s) Oral (given by mouth) once a day (in the morning). dupilumab (Dupixent Pre-filled Pen 300 mg/2 mL subcutaneous solution) estradiol (estradiol 0.05 mg/24 hours weekly transdermal film, extended release) 1 patch(es). FLUoxetine (PROzac 20 mg oral capsule) 1 cap(s) every day. hydrOXYzine (hydrOXYzine hydrochloride 10 mg oral tablet) TAKE 1 TABLET BY MOUTH AT BEDTIME. ibuprofen (ibuprofen 800 mg oral tablet) 1 tab(s) Oral (given by mouth) 3 times per day as needed as needed for pain. onabotulinumtoxinA (Botox 100 units injection) 1.25 unit(s) Intramuscular every 3 months. ondansetron (ondansetron 4 mg oral tablet) 1 tab(s) Oral (given by mouth) every 6 hours. take 1 tablet by mouth every 6 ho (more content not included)... [facility] Coding Summaryon 06-18-2024 Coding Summary HTMLBase 64 UzaaywsqDWt3sSv+PGhl YWQ+EA4FKPYxO83huFWx cU2zW8GJWEjEJzvmLZZI MQiZQaNfhbNmRB5duJUg ZXJu IC8+JG1eFTWoZrsjkLGc r8J6iMO1X56pcx6oNKcu nHD6GTPfHwVocmqtn6cm hIv6JNypMjgeVcOx HZRaxD39VKZ9eQ95Sg74 vNFtxMRtj7tqpXw8IxJp KWXvWZF9mGdsRLjtm1Sg JNHdY08eyVMkf6V4 IGNvbGxhcHNlOyBlbXB0 qM2yFZuittora3vuwfjg Aim5eb57oTKzx3P5uSS2 P2MgfbF1BEFsaEXb IrwdzSPHjF6aduwjb8rf xmgvNdUpGHKiYLm7IKp5 NURtiJzlMxSvNZ58DPR0 HQHdrpEqE5QcGQVt gOusAkA2h0N8Ir2HV0LI SzsgI4PWSLZPOGohdMJ+ EE96cf65L7TaQnfwWir6 PBCwDRV4hLS8nI8p DMLpQZwen9A8yEU3R3Dl bsYdml3el2vfSCBmQReh R35jnVQmv9S2YFVnqAA2 UPGemHgqGsGurS21 Oyc+EYJihEozi6PxJywa k2aym1jleZd5IakyPFEv fvIrvIklJKX1d7OkOm9o ZEWelDZ8rTQ1sJ9s QpZnHaX6OTfyW780EkVa lTHdVjwpF95kT0FtsDT+ ABAjAze9QFNauIdjKH1h Y9AuFBJrigrvtFFn tByhZU7jGFHljsuvATEb qG2zEHBwP9z8DaIrKuK1 FLraB2TeSCZpgpnyAe83 bC0yOrNoXuK0AUko T4TmreZ2JPOatFShJNpp DQM7H69sg8Q5VADiTRAv ZLX3xLT5pG9bnCbberty bGVmdDsgdmVydGlj XGdsAVqsI220MNSqvAls PkNvZGluZyBEYXRlOiAg MDgvMTYvMjAyNDwvdGQ+ YEJbWCA8oIoiZIUi sKBoNYxaHx0lqEuojMzl BX9wPFXdokcqEUJarW5x GIXdhFHgwWyyRN3sPPNf jnqem123IkKnYZG0 OXQioASlN8PypO3iLtRp NDCnGCWrU3PzuUArXNoh Q913JZdhVfF7RPFiojMs Q3WbBBRjiGsiXpQ5 c3Q5Qt2Mh3LytqxfC5Dj qAIaEiJuJewrWEs8A7Tk PjwvdHI+HF10GAMfHG86 KWa3GGE6aKwiIAsr FUKpI3IvjA7lIxKbITVc ZGRkOyc+PHRhYmxlIHdp ZHRoPScxMDAlJyBzdHls VT1zYt1lDJKwVBXc qGrroRSkHfIfi1wgRGSe XHbwGX8suLhqE6ZrnOI9 XNZyd7r8Dl54K76dA0Gt dXA+NSKavVL1dEP7 dS5iWcGnEhJ8GBfoB087 OoDbuSVePatoi2daf7ed lGl9MnT9WTAvxcZrhGme EHE2l1LkYt11S01e IHdpZHRoPSIxNSUiIHZh nZniwa4eqY0vTc9+PGNv aES6dXC1qB6dQhWkWwL5 NTwcK617DiLiuLEy Njhxr7vnf8pzyFg7AqQn DTKgltAkrZdkUCV5w0Gv Vz57X4PfnVadf2GbTxj1 td36aVXya4P3tUF3 J9OnHGQiodamgHXoiLpe PD8bWMZvicmbIYHpqO3p DPMjA2i1CjWiGfJ3AYaj C6GnliY1YFRkcDBl SDBmqDYSwP9cpbreq7xo roieWbInBBGyMAd5FEt4 AYPnqXmnJxKuSCW0RyB0 SMD4tRVpwN7qvFen nyfqsW6jFtz+LIP9wLTi vJYEHZ3dHdgfyZB+PHRk RDJ9ySbhYGyjMPJbcI7n GUJkH0d2FnCzCrQ1 FGodN1BcmwY0RCTwmWPd TSNvvCMLeQ6nrmmpb8yf cztxOgVoFYWgRDv9SZq7 LWFsaWduOiBsZWZ0 AjX3ISZ1hMWhyG5beQxx sncczF2wLhd+QmlydGgg UIZ4OCo6G5LwUqc4DDHe hLlfAW4lbCVbOMbx Fr2jmBkpfVeaIS7kFOWk vrfjz079GtEyb8diVNDq tFTvBGbxJFY6E35ph3S3 BABpRLScKLP6qZL9 nY9leMzwtmjsqOOhbYhg hbUryMkpZWfbSSgdG461 IZXdxZpxUoWiDZl3Y3Cc Xgx7PCQlsUlsXQ8d sIZsQItgAw7pePimcWcf ZD2dTUOapypan679OpId n8sgUQPnoRVyKVneZDD3 L45mm2U8NYBdVPDj QAC5zRC8rN1pvHywpuzu bGVmdDsgdmVydGljYWwt DYjnP507MZVmyPetKuMx rBp9Z8ZkVgy8HXXl xMfvWT1omCZqRAqpZq8h gOeckHvgRA6kXTQvwlil v688DaRbe6pjPIJblVEg SNopCUI8N86uo0U9 WKAsEXAdJYF2uFO1wJ3y bGlnbjogbGVmdDsgdmVy gGmsCAbmXFmgU435FEVq cDsnPlBhdGllbnQg IXsgIEf6W6HjRemuzNO+ OZ75YCVoYA46dSRewZZt j9idpLm0CfTwOIDwELU7 xKgfFKclr6AgKKEr O00zyCAwb2H0ZDEprYkv sENwMtDwzHV7eY8oUSda zoxjk3ivqxxpQdecg8il du22hS98L76yTVhi ZHRoPSIzMCUiIHZhbGln ij9cpV9jGn1+PGNvbCB3 pOZ4gI3gNGZeBjI8YMfr Q556KkQaoTDcIvks a2ilh9htzEr3JlT4WDVa ggPdlYlzTQN9f5OyZd78 X20dDQuzNENuWWXrMBPk DLCvnZlzyf9hxF5q Ii8+QBOekLN0eMW4lU3s KjBwNvI9YTkaI575UwVr kGFnSuovU89pT6IkwZR+ WJDcZib2ECIkxAmn NJ2sqXIhOBgvQf8nCPN3 DcLwVdRuOOqlQ1WeLCUc evfcojhggEH7PZPeQNPc yQ93Zc5ecBtvNGDc aYIVyJ1kqiyov9muaqon VqUaEKItAFo2DGk4GRUt vElxSzDjGBP7TrC8RTQ4 tOBriN3mnIzhequf dL7bB3WlFCGsjscaLi97 fY4vJgLgQnC4BIqgIcs+ FcGUDRVlCAHQKa6RAWKR RTwvdGQ+PHRkIHN0 wQcsWVquXVJxxB5pTAMw C8h0QzTeWhW7ZNvkU8Gr WIGmmxhaMx43eN2pUlKo OdG8LZhrZ3KpeeJ2 QJLdvGWiMAocBCX8L03v j5M6LZAmSHBpLSV2jSU2 aD1dmSnkoucfjEInjEjh dmVydGljYWwtYWxp P355OJGeiWuoMrJdQpDc MmE2AaW5F5ArFwt3WSVw bZfcXO2qxHZyYOblCb9o zMmhbZwrYM1jHZMu luspDWYtbQ6cYRPtaAZb uEotHV3iNQFioazia967 WhFgONZ5EIXmqHFmA5Ir yI6zMzVrSEOwBOLv E0TrhZHaBIccW958SYrs WaV3UTKifkXrM7ShJRPz vSfhHmF7t2Y1Qi19BQXG ZWFyczwvdGQ+PHRk SFX3tEbsAIvfVHHwaJ5v NAKoX3n1CmYhWeA8AZmf F2VbRZUzbjkvPs99zE3p ThFcQeD5WXbpP8Tp hnQ7DFJlhPOpMGpsXZC9 G39zk9T8JKNkUIGiPSC3 mWH4aN1baClffvjmxYPj dDsgdmVydGljYWwt DOeeX631IUQtbMprJvNP TUFMRTwvdGQ+PHRkIHN0 gFthLBwlGMRjnI3cIINv Q4h9CaFgObG8JRfc D3KkLKYefkrtZa05gN2m YvUiNfE9LErsM9IzfsK8 VAQisESfRVsaUTN8U34v q1E5ZPYbSORiOYT8 pDC7xH7akXppcuzpwEUh dDsgdmVydGljYWwtYWxp X210CFIstDhmJkFmBBEe GP6bhMvstUN+PC90 dx31J1WlAgrdQeg7FAAe ARI4jNM6cZ4iGRFzDBmr g6J6uTR9W6EwzeFqra8w h3eyDMTjCKohO83z vRNuy2E6BGWftHO6EXHh pZsdWmEmlB84Ykw+PGNv qRlxk6OhMskfk1zrq2wy gKk5EuJtMGPdsfTk eLkmGRF5f6CbEg80Y56i IHdpZHRoPSIzMCUiIHZh aUqqcm0ozE9eCf9+PGNv eDS4kQJ0hK8jOwOh PtF5TGhiM958YlWmdWNh Rswle1sos9jpiRu0ZeOn FDBiniEidOjvBMQ3u7Jp Qv03E8WyeDaye0Qp Wzp9zs46cCXmu8W9yRQ1 I8ZoTRAqktxutCQlwRwc SK7qXKRhacctLVLveX2b NRAgH6s1BbDyQgN7 MOqxJ2YwfzP8SERvjOAx UOLkkXGWiC7nfitkt1ca egjfCbKiRQFaNId8QWd0 LWFsaWduOiBsZWZ0 VdC4QIS3oTGufQ7niBju qvheyH8tQfg+URl2z0na dGMdGD3giYH8WO20QO53 rPBzb9V8zRK0J7Zq JPVzqyaiaisndQB9SGGk SUShbJ27It1omKlvDv8a YMGlOOQ0IRTjgMJwT0Ij zU8pPiNjJWUlJYPd B0QsxLJuKSydZ022ESrm KuW7LTElqcCiH2SmTTCp iHgyGpJ3x3X5Ru6FPO72 YK39AU27tQSnz2H3 eMH7Z3WcGSUnpjyqxmjh fVC6OFAcVMMjrK08Vz4d wOgxOz8uOHJnJDK5TUMo sWNmW2DxsC2zZiEt ZKGeZIRuP1LgeLVhILbx I700UHjlZxB1MGDuypHh S8XwJHPrcSxpSpM8m0J2 Dn9WDo03TY84CJ79 yPPkj9T3dXV8L0SvZWIf svezvdlogKR6IMTuUUXm tQ65Ve2zzUjrQm0yENVj VYL9EQPfyJVeN4Uf rF1oTsOsGVKaIPKjZ0Hy kZWcTTbyW698JNmgPjU0 ZOFswfAeL2FaPPDrzYbs YdN8z4N8Bw0OXEhd wrp2N8PiVsoztZO+PC90 QVGdEV20tTOkpWWlf6pn eUw1TxJaOBIvSJP0mLud YHlsi0MjVNJvX63c bGF (more content not included)... Normal [facility] ED Clinical Summaryon 2023 ED Clinical Summary [facility] - Emergency Department [address] [place] [address] ED Clinical Summary PERSON INFORMATION Name: TOOTIE NICOLE Age: 48 Years Sex: FEMALE : 1975 MRN: Acct#: Visit Reason: Headache - Recurrent; MIGRAINE Arrival: 06/07/2024 23:02:53 Discharge: 06/08/2024 00:47:00 LOS: 000 01:45 Check In: 06/07/2024 23:02:53 Checkout:06/08/2024 00:47:00 Address: [address] [place] [id number] PCP: Romeo Chaidez DO PROVIDER INFORMATION Provider Role Assigned Unassigned Yovani Negrete DO ED Provider 06/07/2024 23:05:02 Anel Cerda [employer]FF[employer]SE SUPERVISOR Nurse 06/07/2024 23:08:53 VITALS INFORMATION Vital Sign Triage Latest Temperature Tympanic Temperature Temporal Artery 36.4 DegC Pulse Rate 75 bpm 75 bpm O2 Sat 95 % 95 % Respiratory Rate 15 br/min 15 br/min Blood Pressure /98 mmHg /98 mmHg MEDICAL INFORMATION Medications Given: Medication Dose Route diphenhydrAMINE (Benadryl) 25 mg IV Push dexAMETHasone 10 mg IV Push ketorolac 30 mg IV Push metoclopramide (Reglan) 10 mg IV Piggyback Sodium Chloride 0.9% intravenous solution 1,000 mL 1000 mL Initial Volume 1000 mL/hr IV Left Antecubital Fossa Allergy Information: traMADol; Latex Allergy; Adhesive Bandage; Phenergan; Imitrex; penicillin PHYSICIAN DOCUMENTATION Patient: TOOTIE NICOLE Age: 48 years Sex: FEMALE : 1975 Associated Diagnoses: Migraine headache; Elevated blood pressure reading Author: Yovani Negrete DO Basic Information Additional information: Chief Complaint from Nursing Triage Note : Chief Complaint 06/07/2024 23:09 EDT Chief Complaint Pt states she has had a migraine for weeks . History of Present Illness 48-year-old female to the emergency department chief complaint of migraine headache. Patient states has been off and on for weeks. Patient states the medication she has has at home will make it go away temporarily however then it comes back. No fever no chills. Nausea but no vomiting. Patient states she has a long history of migraines and sees a neurologist. Had Botox injections which typically helps. No new or unusual symptoms has had CAT scans and neurological workup in the past. Review of Systems Constitutional symptoms: Negative except as documented in HPI. Skin symptoms: Negative except as documented in HPI. Eye symptoms: Negative except as documented in HPI, Light sensitive. ENMT symptoms: Negative except as documented in HPI. Respiratory symptoms: Negative except as documented in HPI. Cardiovascular symptoms: Negative except as documented in HPI. Gastrointestinal symptoms: Nausea, no abdominal pain, no vomiting. Genitourinary symptoms: Negative except as documented in HPI. Musculoskeletal symptoms: Negative except as documented in HPI. Neurologic symptoms: Headache, no dizziness, no altered level of consciousness. Health Status Allergies: Allergic Reactions (Selected) Unknown Adhesive Bandage- No reactions were documented. Imitrex- No reactions were documented. Latex Allergy- No reactions were documented. Phenergan- No reactions were documented. Severity Not Documented Penicillin- No reactions were documented. TraMADol- Secure, adhesive tape.. Medications: (Selected) Inpatient Medications Ordered Benadryl: 25 mg = 0.5 mL, IV Push, Once Reglan: 10 mg = 2 mL, 200 mL/hr, IV Piggyback, Once Sodium Chloride 0.9% intravenous solution 1,000 mL: 1,000 mL/hr, IV dexAMETHasone: 10 mg = 2.5 mL, IV Push, Once ketorolac: 30 mg = 1 mL, IV Push, Once Prescriptions Prescribed ondansetron 4 mg oral tablet: 4 mg = 1 tab(s), PO, q6hr (int), take 1 tablet by mouth every 6 hours if needed for nausea, 10 tab(s), 0 Refill(s) Documented Medications Documented Adderall: 20 mg, Daily, 0 Refill(s) Botox 100 units injection: 1.25 unit(s), IM, q3mo, 1 EA, 0 Refill(s) Dupixent Pre-filled Pen 300 mg/2 mL subcutaneous solution: 0 Refill(s) PROzac 20 mg oral capsule: 20 mg = 1 cap(s), Daily, 0 Refill(s) amphetamine-dextroam phetamine 10 mg oral capsule, extended release: 10 mg = 1 cap(s), Oral, qAM, 0 Refill(s) estradiol 0.05 mg/24 hours weekly transdermal film, extended release: 1 patch(es), 0 Refill(s) ibuprofen 800 mg oral tablet: 800 mg, 1 tab(s), PO, TID, PRN: as needed for pain, 0 Refill(s) pramipexole 0.5 mg oral tablet: 0.5 mg, 1 tab(s), PO, TID, 0 Refill(s) tiZANidine 4 mg oral tablet: take 1/2 to 1 tablet by mouth three times a day. Past Medical/ Family/ Social History Medical history: Resolved Migraines ([id number]): Resolved.. Surgical history: Rhinoplasty ([id number]) on 07/10/2016 at 40 Years. DNS (deviated nasal septum) ([id number]) on 07/10/2016 at 40 Years. Nasal polypectomy ([id number]). Appendectomy ([id number]). Hysterectomy ([id number]). Colon ([id number]). Comments: 11/18/2023 21:34 Etc/GMT+5 - Shuff, Patricia RN resection. Family history: N (more content not included)... [facility] ED Patient Summaryon 024 ED Patient Summary [facility] - Emergency Department [address] [id number] PATIENT DISCHARGE INSTRUCTIONS Patient Information Name: TOOTIE NICOLE Age: 48 Years Date of : 1975 Reason For Visit: Headache - Recurrent; MIGRAINE Arrival Time: 06/07/2024 23:02:53 Primary Care Physician: Romeo Chaidez DO Attending Physician: Yovani Negrete DO Comment: Visit Diagnosis: Diagnoses This Visit Elevated blood pressure reading (R03.0) Headache - Recurrent ([id number]) Migraine headache (G43.909) The Pharmacy at [facility] is open Friday through Friday from 9A to 6P and Friday and Friday from 9A to 5P Prescription Information: If you have been given a prescription for narcotics, seek immediate medical attention if you have any difficulty breathing or any sudden status changes such as confusion and sleepiness. If you or anyone you know is experiencing suicidal thoughts, mental health, alcohol and/or drug addiction problems; contact the [facility] 26/05 Crisis Hotline -Text 5XATV nw 438308. If you received any narcotics, sedation, or any other medication that causes drowsiness for the next 24 hours, unless otherwise directed: ? Do not drive a car. ? Do not operate machinery such as power tools, lawn mowers, drills, sewing machines, or stoves ? Avoid alcoholic beverages and drugs for allergies, nerves, or sleep ? Do not make important personal or business decisions or sign any legal documents With: Address: When: Romeo Chaidez [address] [place] [id number] Business (1) Within 3 to 5 days Comments: Call for follow up appointment Return if symptoms worsen Also follow-up with your neurologist. Call to make an appointment as soon as possible. Medication Information: The exam and treatment you received today in the [facility] Emergency Department were for an urgent problem and are not intended as complete care. It is important for you to follow up with a doctor, nurse practitioner, or physician?s stores assistant for ongoing care. If your symptoms become worse or you do not improve as expected and you are unable to reach your usual health care provider, you should return to the Emergency Department, we are available 24 hours a day. For those patients who have received Radiology results, the interpretation of your X-ray as given to you by our Emergency Department physician is only a preliminary report. The Radiologist will review your films and if there is a change in the diagnosis you will be notified by phone. Please make sure you have provided a working phone number so we can reach you if necessary. In the event that you had a lab culture while you were a patient in the Emergency Department, you will be notified by phone if there is a need to change your antibiotic. Please make sure you have provided a working phone number so we can reach you if necessary. [facility] Emergency Department has provided you with a complete list of medications post discharge. Please inform your customs patrol officer/provider of your visit and for further instruction on these medications. Any specific questions regarding your chronic medications and dosages should be discussed with your primary care physician(s) and/or pharmacist. New Medications [facility] [id number], [address], [place] [id number], [phone] ketorolac (ketorolac 10 mg oral tablet) 1 tab(s) Oral (given by mouth) every 6 hours as needed for pain. Refills: 0. metoclopramide (Reglan 10 mg oral tablet) 1 tab(s) Oral (given by mouth) every 6 hours. Refills: 0. Additional medications on your home medication list not specifically addressed. Please contact the ordering physician if you have questions about these medications. amphetamine-dextroam phetamine (Adderall) 20 Milligram every day. amphetamine-dextroam phetamine (amphetamine-dextroa mphetamine 10 mg oral capsule, extended release) 1 cap(s) Oral (given by mouth) once a day (in the morning). dupilumab (Dupixent Pre-filled Pen 300 mg/2 mL subcutaneous solution) estradiol (estradiol 0.05 mg/24 hours weekly transdermal film, extended release) 1 patch(es). FLUoxetine (PROzac 20 mg oral capsule) 1 cap(s) every day. ibuprofen (ibuprofen 800 mg oral tablet) 1 tab(s) Oral (given by mouth) 3 times per day as needed as needed for pain. onabotulinumtoxinA (Botox 100 units injection) 1.25 unit(s) Intramuscular every 3 months. ondansetron (ondansetron 4 mg oral tablet) 1 tab(s) Oral (given by mouth) every 6 hours. take 1 tablet by mouth every 6 hours if needed for nausea. Refills: 0. pramipexole (pramipexole 0.5 mg oral tablet) 1 tab(s) Oral (given by mouth) 3 times per day. tiZANidine (tiZANidine 4 mg oral tablet) take 1/2 to 1 tablet by mouth three times a day. Visit Information Allergies: Substance Reaction Symp (more content not included)... Normal [facility] ED Note - Physicianon 2023 ED Note - Physician Patient: TOOTIE NICOLE Age: 48 years Sex: FEMALE : 1975 Associated Diagnoses: Migraine headache; Elevated blood pressure reading Author: Yovani Negrete DO Basic Information Additional information: Chief Complaint from Nursing Triage Note : Chief Complaint 06/07/2024 23:09 EDT Chief Complaint Pt states she has had a migraine for weeks . History of Present Illness 48-year-old female to the emergency department chief complaint of migraine headache. Patient states has been off and on for weeks. Patient states the medication she has has at home will make it go away temporarily however then it comes back. No fever no chills. Nausea but no vomiting. Patient states she has a long history of migraines and sees a neurologist. Had Botox injections which typically helps. No new or unusual symptoms has had CAT scans and neurological workup in the past. Review of Systems Constitutional symptoms: Negative except as documented in HPI. Skin symptoms: Negative except as documented in HPI. Eye symptoms: Negative except as documented in HPI, Light sensitive. ENMT symptoms: Negative except as documented in HPI. Respiratory symptoms: Negative except as documented in HPI. Cardiovascular symptoms: Negative except as documented in HPI. Gastrointestinal symptoms: Nausea, no abdominal pain, no vomiting. Genitourinary symptoms: Negative except as documented in HPI. Musculoskeletal symptoms: Negative except as documented in HPI. Neurologic symptoms: Headache, no dizziness, no altered level of consciousness. Health Status Allergies: Allergic Reactions (Selected) Unknown Adhesive Bandage- No reactions were documented. Imitrex- No reactions were documented. Latex Allergy- No reactions were documented. Phenergan- No reactions were documented. Severity Not Documented Penicillin- No reactions were documented. TraMADol- Secure, adhesive tape.. Medications: (Selected) Inpatient Medications Ordered Benadryl: 25 mg = 0.5 mL, IV Push, Once Reglan: 10 mg = 2 mL, 200 mL/hr, IV Piggyback, Once Sodium Chloride 0.9% intravenous solution 1,000 mL: 1,000 mL/hr, IV dexAMETHasone: 10 mg = 2.5 mL, IV Push, Once ketorolac: 30 mg = 1 mL, IV Push, Once Prescriptions Prescribed ondansetron 4 mg oral tablet: 4 mg = 1 tab(s), PO, q6hr (int), take 1 tablet by mouth every 6 hours if needed for nausea, 10 tab(s), 0 Refill(s) Documented Medications Documented Adderall: 20 mg, Daily, 0 Refill(s) Botox 100 units injection: 1.25 unit(s), IM, q3mo, 1 EA, 0 Refill(s) Dupixent Pre-filled Pen 300 mg/2 mL subcutaneous solution: 0 Refill(s) PROzac 20 mg oral capsule: 20 mg = 1 cap(s), Daily, 0 Refill(s) amphetamine-dextroam phetamine 10 mg oral capsule, extended release: 10 mg = 1 cap(s), Oral, qAM, 0 Refill(s) estradiol 0.05 mg/24 hours weekly transdermal film, extended release: 1 patch(es), 0 Refill(s) ibuprofen 800 mg oral tablet: 800 mg, 1 tab(s), PO, TID, PRN: as needed for pain, 0 Refill(s) pramipexole 0.5 mg oral tablet: 0.5 mg, 1 tab(s), PO, TID, 0 Refill(s) tiZANidine 4 mg oral tablet: take 1/2 to 1 tablet by mouth three times a day. Past Medical/ Family/ Social History Medical history: Resolved Migraines ([id number]): Resolved.. Surgical history: Rhinoplasty ([id number]) on 07/10/2016 at 40 Years. DNS (deviated nasal septum) ([id number]) on 07/10/2016 at 40 Years. Nasal polypectomy ([id number]). Appendectomy ([id number]). Hysterectomy ([id number]). Colon ([id number]). Comments: 11/18/2023 21:34 Etc/GMT+5 - ShuffPatricia RN resection. Family history: No family history items have been selected or recorded.. Social history: Social & Psychosocial Habits Alcohol 09/15/2023 Alcohol Use: Never 01/29/2024 Alcohol Use: Never 04/13/2024 Alcohol Use: Never Substance Use 09/15/2023 Substance use: Never 01/29/2024 Substance use: Never 04/13/2024 Substance use: Never Tobacco 04/24/2016 Risk Assessment: High Risk 09/15/2023 Smoking tobacco use: Current everyday tobacco Comment: 12 ppd - 09/15/2023 21:47 - Anika Doan RN 11/18/2023 Smoking tobacco use: Current everyday tobacco Number used per day: 1/2 pack daily 01/29/2024 Smoking tobacco use: Current everyday tobacco Number used per day: 1/2 ppd 04/13/2024 Smoking tobacco use: Current everyday tobacco 06/07/2024 Smoking tobacco use: Current everyday tobacco Number used per day: 1/2 ppd Electronic Cigarette/Vaping 09/15/2023 Electronic Cigarette Use: Never 01/29/2024 Electronic Cigarette Use: Never 04/13/2024 Electronic Cigarette Use: Never . Problem list: Active Problems (7) ADHD Headache, chronic migraine without aura, with status migrainosus Migraine Migraine Narcolepsy Restless leg syndrome Smoker . Physical Examination Vital Signs Vital Signs 06/07/2024 23:09 EDT Temperature Temporal Artery 36.4 DegC Peripheral Pulse Rate 7 (more content not included)... Normal [facility] CT Chest, Low Dose Screening on 06-04-2024 CT Chest, Low Dose Screening Exam Date/Time: 06/04/2024 17:30 EDT Reason for Exam: Screening;Z87.891 Report IMPRESSION: LUNG RADS CATEGORY 1: NEGATIVE. NO NODULES AND/OR DEFINITELY BENIGN NODULES. CONTINUE ANNUAL SCREENING WITH SCREENING CT CHEST IN [address] IMAGING OF THE CHEST WITHOUT INTRAVENOUS CONTRAST MEDIUM. HISTORY: Tobacco use. TECHNICAL FACTORS: Low dose CT imaging of the chest was obtained and formatted as 2.5 mm contiguous axial images from the thoracic inlet through the adrenal glands. Sagittal and coronal reconstructions obtained during postprocessing. Intravenous contrast medium: None. Comparison: None. FINDINGS: Right lung: No nodules, masses, consolidation, pleural effusion, pneumothorax. Left lung: No nodules, masses, consolidation, pleural effusion, pneumothorax. Lymph nodes: No hilar, mediastinal, or axillary lymph node enlargement. Thoracic aorta: Normal in course and caliber. Cardiac Size: Normal. Pericardial effusion: None. Upper abdomen:Limited imaging upper abdomen shows no gross anomaly. Musculoskeletal:No osteoblastic, and no osteolytic lesions. All CT scans at this facility use dose modulation, iterative reconstruction, and/or weight based dosing when appropriate to reduce radiation dose to as low as reasonably achievable. Report Ordering Provider: Romeo Chaidez FINAL REPORT Dictated: 06/04/2024 6:08 pm Abner Taylor MD Signed (Electronic Signature): 06/04/2024 6:08 pm Signed by: Abner Taylor MD Transcribed by: ELIAS Technologist: KEO Houser [facility] Ambulatory Visit Summaryon 0 05-18-2024 Ambulatory Visit Summary Ambulatory Visit Summary TOOTIE NICOLE :1975 Visit Date:05/18/2024 Ambulatory Visit Instructions Your Diagnosis ADHD COPD mixed type Obesity Smoker Cigarette smoker within last 12 months Migraine with aura Dyshydrosis Anxiety Mild recurrent major depression Restless leg syndrome Nausea Spasm of cervical paraspinous muscle Adult BMI 30.0-30.9 kg/sq m Your Care Team Attending Physician - Romeo Chaidez DO Primary Care Physician - Romeo Chaidez DO This Is Your Medications List amphetamine-dextroam phetamine (Adderall XR 10 mg Cap-ER) amphetamine-dextroam phetamine (Adderall XR 20 mg Cap-ER) aripiprazole (Abilify 2 mg Tab) dupilumab (Dupixent Pre-filled Pen 300 mg/2 mL subcutaneous solution) fluoxetine (Prozac 20 mg Cap) hydrOXYzine (hydrOXYzine hydrochloride 25 mg Tab) ketorolac (ketorolac 10 mg Tab) ondansetron (Zofran 4 mg Tab) pramipexole (Mirapex 0.75 mg oral tablet) tizanidine (tiZANidine 2 mg Tab) Contact prescribing physician if questions or concerns albuterol (albuterol 90 mcg/inh inhalation powder) estradiol (Estradiol Patch 0.05 mg/24 hours twice weekly transdermal film, extended release) Procedures Performed Total hysterectomy (05/14/2022), Appendectomy, Breast, Breast implant, Sinus. Discharge Vitals Heart Rate (Peripheral) 78 Blood Pressure 132/90 Height 64 in Height 163 cm Weight 176.22 lb Weight 80.1 kg BMI 30.15 What to do next Scheduled Follow-Up Appointments Friday 2:40 PM EDT With: Romeo Chaidez DO Where: [facility] [place] Normal Smoker, pp_set_radiology_ subspecialty, [facility]\.br\ Medications\.br\ What How Much When Why Instructions\.br\ Changed hydrOXYzine (hydrOXYzine hydrochloride 25 mg Tab) 1 Tablets By Mouth At bedtime Dyshydrosis Pickup at [facility] [id number]\.br\ Changed ondansetron (Zofran 4 mg Tab) 1 Tablets By Mouth Every 8 hours as needed for Migraine headache Nausea Migraine with aura\.br\ Changed pramipexole (Mirapex 0.75 mg oral tablet) 1 Tablets By Mouth Every day Restless leg syndrome rx by Dr Martínez \.br\ Changed tizanidine (tiZANidine 2 mg Tab) 1 Tablets By Mouth At bedtime Migraine with aura Spasm of cervical paraspinous muscle rx by Dr. Martínez \.br\ Unchanged amphetamine-dextr oamphetamine (Adderall XR 10 mg Cap-ER) 1 Capsules By Mouth Once a day (in the morning) ADHD Pickup at [facility] [id number]\.br\ Unchanged amphetamine-dextr oamphetamine (Adderall XR 20 mg Cap-ER) 1 Capsules By Mouth Once a day (in the morning) ADHD Pickup at [facility] [id number]\.br\ Unchanged aripiprazole (Abilify 2 mg Tab) 1 Tablets By Mouth\.br\ Unchanged dupilumab (Dupixent Pre-filled Pen 300 mg/ 2 mL subcutaneous solution) 300 Milligram\.br\ Unchanged fluoxetine (Prozac 20 mg Cap) 1 Capsules By Mouth Every day Anxiety Mild recurrent major depression Pickup at [facility] [id number]\.br\ Unchanged ketorolac (ketorolac 10 mg Tab)\.br\ Unchanged albuterol (albuterol 90 mcg/ inh inhalation powder) 2 Puffs Inhalation Every 6 hours COPD mixed type Contact prescribing physician if questions or concerns \.br\ Unchanged estradiol (Estradiol Patch 0.05 mg/ 24 hours twice weekly transdermal film, extended release) apply 1 patch two times a week as directed Contact prescribing physician if questions or concerns \.br\ Pharmacy Information\.br\ [facility] [id number]: [address], [place] [id number] [phone]\.br\ Allergies\.br\ Imitrex (Rash)\.br\ Tape (Chemical burn)\.br\ penicillin (Rash)\.br\ Problems\.br\ Ongoing - Any problem that you are currently receiving treatment for.\.br\ ADHD\.br\ Anxiety\.br\ Cervical radiculopathy at C8\.br\ Cigarette smoker within last 12 months\.br\ COPD mixed type\.br\ Dyshydrosis\.br\ History of appendectomy\.br\ History of cervical cancer\.br\ History of small bowel obstruction\.br\ HLD (hyperlipidemia)\ .br\ Low vitamin D level\.br\ Lumbosacral radiculopathy at S1\.br\ Migraine with aura\.br\ Mild recurrent major depression\.br\ Obesity\.br\ Restless legs syndrome\.br\ Sleep disorder\.br\ Smoker\.br\ Historical - Any problem that you are no longer receiving treatment for.\.br\ Anemia\.br\ Cervical cancer\.br\ High cholesterol\.br\ Migraine\.br\ AGUSTIN (obstructive sleep apnea)\.br\ Patient Survey\.br\ You may receive a survey via text or e-mail asking about your office visit. Please share your experience with us by completing your survey. We appreciate your feedback and thank you for choosing us for your care.\.br\ Education Materials\.br\ Living With Attention Deficit Hyperactivity Disorder\.br\ If you have been diagnosed with attention deficit hyperactivity disorder (ADHD), you may be relieved that you now know why you have felt or behaved a certain way. Still, you may feel overwhelmed about the treatment ahead. You may also wonder how to get the support you need and how to deal with the condition day-to-day. With treatment and support, you can live with ADHD and manage your symptoms.\.br\ How to manage lifestyle changes\.br\ Managing lifestyle changes can be challenging. Seeking support from your healthcare provider, therapist, family, and friends can be helpful.\.br\ How to recognize changes in your condition\.br\ The following signs may mean that your treatment is working well and your condition is improving:\.br\ ? \.br\ Consistently being on time for appointments.\.br \ ? \.br\ Being more organized at home and work.\.br\ ? \.br\ Other people noticing improvements in your behavior.\.br\ ? \.br\ Achieving goals that you set for yourself.\.br\ ? \.br\ Thinking more clearly.\.br\ The following signs may mean that your treatment is not working very well:\.br\ ? \.br\ Feeling impatience or more confusion.\.br\ ? \.br\ Missing, forgetting, or being late for appointments.\.br \ ? \.br\ An increasing sense of disorganization and messiness.\.br\ ? \.br\ More difficulty in reaching goals that you set for yourself.\.br\ ? \.br\ Loved ones becoming angry or frustrated with you.\.br\ Follow these instructions at home:\.br\ Medicines\.br\ ? \.br\ Take ulur-gir-meyghej and prescription medicines only as told by your health care provider.\.br\ ? \.br\ Check with your health care provider before taking any new medicines.\.br\ General instructions\.br\ ? \.br\ Create structure and an organized atmosphere at home. For example:\.br\ ? \.br\ Make a list of tasks, then rank them from most important to least important. Work on one task at a time until your listed tasks are done.\.br\ ? \.br\ Make a daily schedule and follow it consistently every day.\.br\ ? \.br\ Use an appointment calendar, and check it 2?3 times a day to keep on track. Keep it with you when you leave the house.\.br\ ? \.br\ Create spaces where you keep certain things, and always put things back in their places after you use them.\.br\ ? \.br\ Keep all follow-up visits. Your health care provider will need to monitor your condition and adjust your treatment over time.\.br\ Where to find support\.br\ Talking to others\.br\ \.br\ ? \.br\ Keep emotion out of important discussions and speak in a calm, logical way.\.br\ ? \.br\ Listen closely and patiently to your loved ones. Try to understand their point of view, and try to avoid getting defensive.\.br\ ? \.br\ Take responsibility for the consequences of your actions.\.br\ ? \.br\ Ask that others do not take your behaviors personally.\.br\ ? \.br\ Aim to solve problems as they come up, and express your feelings instead of bottling them up.\.br\ ? \.br\ Talk openly about what you need from your loved ones and how they can support you.\.br\ ? \.br\ Consider going to family therapy sessions or having your family meet with a specialist who deals with ADHD-related behavior problems.\.br\ Finances\.br\ Not all insurance plans cover mental health care, so it is important to check with your insurance carrier. If paying for co-pays or counseling services is a problem, search for a local or [facility] mental health care center. Public mental health care services may be offered there at a low cost or no cost when you are not able to see a private health care provider.\.br\ If you are taking medicine for ADHD, you may be able to get the generic form, which may be less expensive than brand-name medicine. Some makers of prescription medicines also offer help to patients who cannot afford the medicines that they need.\.br\ Therapy and support groups\.br\ Talking with a mental health care provider and participating in support groups can help to improve your quality of life, daily functioning, and overall symptoms.\.br\ Questions to ask your health care provider:\.br\ ? \.br\ What are the risks and benefits of taking medicines?\.br\ ? \.br\ Would I benefit from therapy?\.br\ ? \.br\ How often should I follow up with a health care provider?\.br\ Where to find more information\.br\ Learn more about ADHD from:\.br\ ? \.br\ Children and Adults with Attention Deficit Hyperactivity Disorder: chris Houser [facility] Family Medicine Office/Clini c Noteon 05-18-2024 Family Medicine Office/Clinic Note Family Medicine Office/Clinic Note Chief Complaint ADHD F/U HPI Staff Patient here today for 3 month F/U ADHD SHIRIN 02/24/24 Labs 10/01/23 Patient asking about a new RX for Hydroxyzine/ itching ADHD followup: Sleeping well: Yes, 6-8 hours Blood pressure:Reviewed, _ Concerns/complaints: None Controlled substance:YES Urine Drug Screen done:UTD Medication Agreement updated: UTD History of Present Illness 48 Years old Female here for 3 mo f/u med review HPI staff / Chief Complaint confirmed with the patient Social: The patient is not The patient is not currently working; on disability for migraines still stuck going to hospital every month The patient has 3 biologic child(troy) - and 2 step children 2 grandchild(troy) home-schooling her grand children Screening: Colonoscopy: Cologuard completed 2023; states was negative Mammogram: overdue DEXA: age Pap: [facility] DEPARTMENT MANAGER - Dr. Sarah DAVIS Smokers/ former smokers: Low dose lung CT: DUE List of Providers: Neurology - Dr. Lisa Martínez Materials Assistant - Dr. Sarah DAVIS Derm - Dr. Francis Quezada - Dr. Wilkinson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 disc From last note: hasn't read Driven to Distraction Oct 30, 2023 - Neurology - Dr. Lisa Martínez botox injections for migraines [1] To go instructions: Continue Adderall as prescribed Read Driven to Distraction by Pablo Vital to learn more about ADHD https://www.[employer].com/slideshows/a mcq-snwnztma-piuuy-o ff-our-feet/ F/u every three months [2] Review of Systems PHQ Score Initial Depression Screen Score: 0 SCORE 13 point ROS negative except mentioned in HPI Physical Exam Vitals & Measurements HR: 91(Peripheral) BP: 136/82 SpO2: 97% HT: 64 in HT: 163 cm WT: 80.6 kg WT: 177.32 lb BMI: 30.34 Constitutional: Vital signs reviewed; TOOTIE NICOLE is in no acute distress Lungs: Clear to auscultation B/L, no rales, rhonchi, wheezes; symmetric chest expansion Neck: Full ROM Heart: Regular rate and rhythm without murmurs, rubs, gallops MSK: Gait fluid and stable Skin: Warm, dry Neurologic: Awake, alert and oriented, speech is normal Psychiatric: Cooperative, appropriate mood and affect - perseverate Assessment/Plan 1. ADHD (F90.9: Attention-deficit hyperactivity disorder, unspecified type) Chronic Well controlled Continue Adderall XR 20 mg and 10 mg Tolerating well I certify that I have reviewed the OARRS report and all PDMP information in this chart on this visit date Follow up in 3 months 2. Lumbosacral radiculopathy at S1 (M54.17: Radiculopathy, lumbosacral region) Acute New to me Seeing orthopedic surgeon Dr. Langford in [place] MRIs have been ordered by this provider 3. Smoker (F17.200: Nicotine dependence, unspecified, uncomplicated) Chronic Current Not resolving as expected Sub-optimal control as the patient continues to smoke 3-10 min discussion about quitting smoking Discussed risk factors for smoking including heart disease, stroke, cancer, COPD Discussed my approach to smoking cessation including slowly decreasing the number of cigarettes the patient carries in their pack, how medications can help, and how I plan to discuss this every time I see them Patient acknowledges this Behavior / what compels the patient to continue smoke is discussed today Defer medication today This person meets criteria to have low dose CT scan for lung cancer --> will discuss with pt further at f/u f/u 3 month USPSTF Guidelines for Lung Cancer Screening: Between the ages of 50-80 20 pack year history Either a current smoker or someone who quit in the last 15 years Screening should be discontinued once a person has not smoked for 15 years or develops a health problem that substantially limits life expectancy or the ability or willingness to have curative lung surgery. 4. Adult BMI 30.0-30.9 kg/sq m (Z68.30: Body mass index [BMI] 30.0-30.9, adult) Total time spent TODAY preparing the chart, face to face with (more content not included)... [facility] [place] Comment on above: Result Comment: Elec tronically Signed By: Romeo Chaidez DO\Date and Time Signed: 02/24/24 18:58 EDT Patient Educationon 02-24-20 24 Patient Education Mental and Behavioral Health Attention Deficit Hyperactivity Disorder, Adult Attention deficit hyperactivity disorder (ADHD) is a mental health disorder that starts during childhood. For many people with ADHD, the disorder continues into the adult years. Treatment can help you manage your symptoms. There are three main types of ADHD: ? Inattentive. With this type, adults have difficulty paying attention. This may affect cognitive abilities. ? Hyperactive-impulsiv e. With this type, adults have a lot of energy and have difficulty controlling their behavior. ? Combination type. Some people may have symptoms of both types. What are the causes? The exact cause of ADHD is not known. Most experts believe a person's genes and environment possibly contribute to ADHD. What increases the risk? The following factors may make you more likely to develop this condition: ? Having a first-degree relative such as a parent, brother, or sister, with the condition. ? Being born before 37 weeks of (prematurely) or at a low weight. ? Being born to a mother who smoked tobacco or drank alcohol during . ? Having experienced a brain injury. ? Being exposed to lead or other toxins in the womb or early in life. What are the signs or symptoms? Symptoms of this condition depend on the type of ADHD. Symptoms of the inattentive type include: ? Difficulty paying attention or following instructions. ? Often making simple mistakes. ? Being disorganized. ? Avoiding tasks that require time and attention. ? Losing and forgetting things. Symptoms of the hyperactive-impulsiv e type include: ? Restlessness. ? Talking out of turn, interrupting others, or talking too much. ? Difficulty with: ? Sitting still. ? Feeling motivated. ? Relaxing. ? Waiting in line or waiting for a turn. People with the combination type have symptoms of both of the other types. In adults, this condition may lead to certain problems, such as: ? Keeping jobs. ? Performing tasks at work. ? Having stable relationships. ? Being on time or keeping to a schedule. How is this diagnosed? This condition is diagnosed based on your current symptoms and your history of symptoms. The diagnosis can be made by a health care provider such as a primary care provider or a mental health career orientation teacher. Your health care provider may use a symptom checklist or a behavior rating scale to evaluate your symptoms. Your health care provider may also want to talk with people who have observed your behaviors throughout your life. How is this treated? This condition can be treated with medicines and behavior therapy. Medicines may be the best option to reduce impulsive behaviors and improve attention. Your health care provider may recommend: ? Stimulant medicines. These are the most common medicines used for adult ADHD. They affect certain chemicals in the brain (neurotransmitters) and improve your ability to control your symptoms. ? A non-stimulant medicine. These medicines can also improve focus, attention, and impulsive behavior. It may take weeks to months to see the effects of this medicine. Counseling and behavioral management are also important for treating ADHD. Counseling is often used along with medicine. Your health care provider may suggest: ? Cognitive behavioral therapy (CBT). This type of therapy teaches you to replace negative thoughts and actions with positive thoughts and actions. When used as part of ADHD treatment, this therapy may also include: ? Coping strategies for organization, time management, impulse control, and stress reduction. ? Mindfulness and meditation training. ? Behavioral management. You may work with a assistant women's basketball coach who is specially trained to help people with ADHD manage and organize activities and function more effectively. Follow these instructions at home: Medicines ? Take avau-vpb-xinkhwb and prescription medicines only as told by your health care provider. ? Talk with your health care provider about the possible side effects of your medicines and how to manage them. Alcohol use ? Do not drink alcohol if: ? Your health care provider tells you not to drink. ? You are , may be , or are planning to become . ? If you drink alcohol: ? Limit how much you use to: ? 0?1 drink a day for women. ? 0?2 drinks a day for men. ? Know how much alcohol is in your drink. In the [place] one drink equals one 12 oz bottle of beer (355 mL), one 5 oz glass of wine (148 mL), or one 1? oz glass of hard liquor (44 mL). Lifestyle ? Do not use illegal drugs. ? Get enough sleep. ? Eat a healthy diet. ? Exercise regularly. Exercise can help to reduce stress and anxiety. General instructions ? Learn as much as you can about adult ADHD, and work closely with your health care providers to find the treatments that work best for you. ? Follow th (more content not included)... [facility] Coding Summaryon 02-04-2024 Coding Summary HTMLBase 64 HmytjbbiOVn1fGf+PGhl YWQ+AZ9BFHSdZ38ruRRt gR8sK1VCVYhRBehhRWEX OKaOMkPzmhCnRL0orYOe ZXJu IC8+WO0tBWVpKrlnwTQn r3Z7bCH1A91wzg0qUMyq zCT8FLLmVaPwhxypx8vv lFg5URjnVujvVrWx FGPlbO38YKL9tW48Zd93 iRNkdMHpd4fqdYx6ChJh NKNxLPZ3aJqzSUjxx7Sl VBNcO24mmHTtx5P3 IGNvbGxhcHNlOyBlbXB0 mV3qKSicrinbc2aqrmfm Otk2et64iSQim8T1uRI6 F9WmrqL0EGWpxJMo WvayrCMJpH9fyjzde8ar dspsXdPePKKrRWm7GZt2 ZTVbnHwpYrWiWL66LIT6 UHVgzfUsR2ByXGWi iTurIgC4i7Q1Sr7NM9EK WpftR4KSMMBPERktnYJ+ CN04rk75I2GqSwunRwr1 MTDbWEW7iXN5hY7m ZFCiTKbtx3N7yVX3Y7Nl dmQmmw7tf9gwFLUsGJef B31crSSyf4N1VXRepOQ5 USJleKlqOiNtgX35 Oyc+TQHleRvda4ThJrmy k9ksl7nysIu7KmkdMEVh koAxnYkyJIL1i3TzGk1j XVSiuYO8yPV4aX0h TlWaFrW2EJovC759LyRj pARgWbvzY18eR8FxeUQ+ NLJlHsr5EVNyhMbxXR7q H7FiDYBtvnpahBWa kNdlSI5zIACqkylcNVZn oB0iDHQxT9l9QeTmYfB8 NYkbW9QrFKIserumXf48 sW9zJoVjAuB1JLqo Z3KgtlQ3WQDdvDKkKSav RWD1I98ul8R9RGDeRTOm BXW2hKJ8tB7mrGwteaiy bGVmdDsgdmVydGlj VTorTYodS801NMPzlQmn PkNvZGluZyBEYXRlOiAg MDQvMDMvMjAyNDwvdGQ+ NAKbGNH1qJejFFEq gQDsKEmlTq0utFuprWcx OH1yCGAxaqijPRTcaE5u FUHwjQLalMdtBP6rQMIc rowbq052LaWtEMJ8 FVBpaBZrX8YinE6wXuCi GMJcUCWnH2DxwZFkRTkp G600NPlhYcV2FFDoilXm A3ZqOJBulPxrUcR6 o7U0Xk1Hm0ZwptpkV8Df zNToDhTvLdorFPx0R2Xu PjwvdHI+LQ80IVXxTP95 DMv6GRQ3gXtoAUhp MYZlX4EwlU9hDtDqNEZz ZGRkOyc+PHRhYmxlIHdp ZHRoPScxMDAlJyBzdHls VK4uKf5xWJJaJXNy fLpvkCPrBaAie8orKAPa CUtrGJ4oaUcvK7DwmRX6 TGBeb8y6Hn72W01sW3Pl dXA+CBGieKT8dQF7 oN5lGeQaPiT8OLnqV271 FaTayRTbTanpj2zbn9kk yZe7GsK9MNNsmaYbtElr LER7y6BzKc58W69y IHdpZHRoPSIxNSUiIHZh dFptqq7elS6kEh3+PGNv qCY4yJU0vW0cLjHbPcJ7 HCswO551HmRxsGNg Vtqeu8ebc2avjUt4OaUx ZHUnxqAwqIrlJDV9f0Jg Uc03R9VchMgge2GqTar2 hq64sOMhg3U2vTB8 X7DiTGIexivthFQxfBzc JO4jOIGyhkxwMCPuvC5w ODQqM4a2KaFwHoV0KNbj N4ByjwQ1ZYHhtNSc HFPaoGPIgL5imrgpx3nr mhujNdWqILSrFTw4FXk9 CTHboIvgOzUyLND1ZcD7 MPR6mBKbuJ0kxSqo guuijD1iTtt+YZN6qSCr wZZDVY2fQggzzWW+PHRk LLA0kZnuRXouVZAouU6k JJVaM8d6TiKgNjV8 SXwjD6HeisW0IYIdnONo SMDzqZSDaR0rpckwd2hj ysqnVzNdWVUvWPs6QPm1 LWFsaWduOiBsZWZ0 TfS0EJP5dMWqaF9erIdb aerqdS8pKea+QmlydGgg YNW9BLi9W8CmQvl8WWMm gAugAJ8znMIvHMlk Ky6nhWbusWpvOU0vYKOq ntnej469AhSfu4sgSGPc sCBjOPdiLSY3J82qt1U5 SAKxZKAgACZ6tTG6 zM2qnLrkkfgplVKwsSbt shXupTenPQkpXAcwE527 UJBfxLhdIjBtKRn5C6Mu Rsf2XGGzcRicGP7f vQJuUHboYu4mpBtphSqe GL2vYGAlobulw039XuBn f4gtABJzrAYcTDroXOO4 B57gw2G0DTZiUPMs NLF2kHT2zQ2uqUfimdgw bGVmdDsgdmVydGljYWwt ZVckE666ZHQqxAlyHoZq fPj0D5VkSup1QRPw zBefWB1xwLVsYGdfNr0t oBmwpCfpDK0oWFFmwuwy o314KlIps8rrEYFnyLZh CXuyKYM0G63kv1G0 EQFwCSDhULW2vTL7mB3s bGlnbjogbGVmdDsgdmVy zQvhJQyaDElzT797FLMo cDsnPlBhdGllbnQg FYzxAFy5D1CrUfodkSU+ FW33YRGaKT27yZDhkNRt n5tbzVo0PjOiISXrVYJ0 aLstEVsst4ZaOQNf E69ucOXhw7Z7TOWalDxd rSRsOtWbbDC0mD6hNSvg uawdj1cklkstJyugo7rc lm77aV54J37hYGmb ZHRoPSIzMCUiIHZhbGln aa6xtV4mGg2+PGNvbCB3 dHX1mP3rECZwAzW9EPln Y964KxHowWDiJgcj j6wzi3pmtZh6TfB7APPp evEjhCtmVXO9j4TxLe42 O51hQMhwFIUcZFTqMEKb PGVztIndwj0veN5p Ii8+JPAwqTA5mLU4oM5j AoVmEgR2GQjeK832PdEw vSWjFquxW29vW4CynEH+ DZMdOqg4QKIeyQdx RX7syLKaYGdgPs5sKOY8 PfXcKmIxHGrwB6ZsAQCw gilptzdulPF0TUWfPYYf cL18Zd2egWvjGORh bXKIcE9ragtgh5lvwube ZfAoMEPwWUi3QKb9LTLx kNhtQvAtRBJ8HbI1ZIL0 nCXadG7wsNtkjicm lV4zQ9AeWMXjnfrkVe27 nI5yFaZlRiM2ONpwWvy+ TwQZKLVzPTRUJw9OEJTJ RTwvdGQ+PHRkIHN0 xAsoXAxvFBFyvB1cTGJl R0v0NwVbEiV8MLkoF2Gx MYKpbrxyGz82zU0qYjJj VtN3PXtzE8CxtiY5 EWTyiLYiFReeQJF9C91p q7N4UVPmVFVoXEE9fXA7 pB1jnKkuxdttaGZshCcf dmVydGljYWwtYWxp T226RKJswVqbPkYdMgLl GuB8HuX7H8SnIue4TTQb vPigTG8chVEuPBzrFy2c zQcmkXvdIE4wVKLo zceyFJChzJ9mYVLzcIVq wUmhUG9jZMAttvlcv825 BuBpHIS6XDBnlJKtD1Kh mJ5uSbIpPNWsTVPh V5NlcHHpJSakK615VJuv WhU0ZHLzyeXgO6HdTHBv jXysAyS1b7R1Us46DMTI ZWFyczwvdGQ+PHRk RQT8lBqyQDtoFGDaoS1z ENXyC8y4MzTnSyC7BZbl M7LtKBFxmnubGr99gP7k YsWiMlL4ANmbP7Ja dcC9OZXnhLJnHLsrUOS1 F09oe1Z2NVIsJQPoHHN8 dEX8pD3dcMptqrkuqBGk dDsgdmVydGljYWwt XEamH236CQNasNgjJoLI TUFMRTwvdGQ+PHRkIHN0 gSdmMGbaZMNirC3vPQCg X3c2WmDwOqT1OWuk L3MiTQQabvpxPs07sX1e CfBbKpU5PSsfN0PmvfF5 BXIbcDPsBPakZTF6Y93p u6C8XNRvJQPcQKK1 dWP8uW2qaMucsboxlSYv dDsgdmVydGljYWwtYWxp A458FAPjnFcqLaDdAALw WO6vuXcprXB+PC90 uz98Z5SgZycvVnk8VLZk CDF6mGW0pQ4vZIGzVGve o1L8dCN9V3FejjFwwc6d s7ruTTJlAHosX26w zQUty8M0MQAvnIU7ESQc jUdkQiKmyN05Cig+PGNv wNuzz3DyFckrq7lur8hd fJo9DzKvEDNthnAk oQdoLPN8a4IfXu23E52a IHdpZHRoPSIzMCUiIHZh oZhwie2rwV8dSy1+PGNv nDT5aRP1sU1tMpVj BzR1YNqgN536ThUkfXVs Sssin7sbe4tiuCr0ZyPg SVQpycNvtUqzHZN3g2Am Bg01I2DazApcf8Wq Hqv2uk78tITee2V6wHZ0 J5IdSRWgezthbHTueKbn MT9aBESrchwqZELqvN1l MGVeD5g6JdFnHeW1 OLgfE0KecwB7OEJyuYPe SAJnnCHHtB4pcxlvr5ub lhcxIqYyQKGfXPy3IWb9 LWFsaWduOiBsZWZ0 DuX8CEK5aPHnjR0tlFbf wqvghH3gCqw+ZWg3y5hp pQUmVL7fgPP5TY07MG89 oQDye0I7tKD0S3Uo QOMobnychokvcYB6RDPk CHXzbR44Qm9lrNeiWx5e DBQwNCR6YWUjcFShM1Hj xN4jStCoZXVbPRAu M9AjmRIiUYapX283UGhf YhI1JDOjhyMpX6LaHGEm uQsnHjC1v6M8Bk2LZV65 ZY19YZ54zXTto7B7 aGY4D4TtWHDhjvcojtkc iTY3RNZoPFUqtM75Qz9v xOkuGr5gQZTiYQV0UBUy zVAkH6AevH1iOgHh LZBxOHDvX1ZznMDfZGwo Z323FFqxMyH6GBDdmfSt S7RpVMBevZzbWxT2b8O7 Lt1OHm36TP91AZ05 kZUql4D0eOH2H1IkNLHa ngbzshfugKZ1AVTaEHMf rG88Hb9yzFwyOa8yWCWg IOC2AQGrtLTeD7Qy uS6zHrRkNEPoDMLmN6Xk dNQvKSanB584QJqyVzG5 TSEvqeRiU2PsJLRmdMbs HfD7x1L8Az9MKSlr cqr6N8TkLrphhIS+PC90 SDEoZM95mYYzoOPbm8nk aQr5MkKtISPdOEG2vRst NQmqq9NlVDDgX52w bGF (more content not included)... [facility] 02-03-2024 [facility] Office Visit (PLASMN) TOOTIE NICOLE ([id number]) 1975 F Date Time Provider Department 02/03/24 4:15 PM REMIGIO TRUJILLO During your visit today, we recorded the following information about you: Shawanda Jordan APRN.GUEST RELATIONS REPRESENTATIVE 02/03/2024 4:47 PM Signed Date: 02/02/2024 PROCEDURE: Syneron DANIELLE to face DIAGNOSIS: dyschromia Reviewed risks, benefits, alternatives, and personnel. Patient stated understanding and consents to proceed. SKIN TYPE: Mane # I ROOM SETUP: Laser safety checklist followed Doors closed Safety DANGER signs posted Laser instrumentation utilized Laser eyeware immediately accessible before entering OR EYE PROTECTION: Patient Physician Personnel MALFUNCTIONS / PROBLEMS ENCOUNTERED DURING SURGERY/PROCEDURE: Not applicable for this patient PROCEDURE: The patient was prepared with ultrasound gel. The laser settings were initially chosen at 24-28J/cm(2) - RF 25J/cm(3) to face and RF 15J/cm(3) to forehead. Pulses= 78 Dr. Trujillo performed the procedure. PAIN: No: 0 on a scale of 0 to 10 The patient tolerated the procedure well. Will return in 1-2 months. Syneron to face charge 200 for this visit, patient aware of increase in treviño for next visit The patient assessment/exam/plan performed by Remiigo Trujillo M.D. and the above reflects their service. Scribed by Shawanda Jordan APRN.GUEST RELATIONS REPRESENTATIVE Remigio Trujillo MD 02/03/2024 4:47 PM Signed [facility] STAFF PHYSICIAN NOTE OF PERSONAL INVOLVEMENT IN CARE I have reviewed the progress note obtained and documented by the physician stores assistant/registered nurse/fellow, and I personally participated in the beck components. I have discussed the case and management of the patient's care. SIGNATURE: Remigio Trujillo MD Allergies As of Date: 02/03/2024 Noted Allergy Reaction PENICILLINS 09/20/2003 2 - Rash TRAMADOL 04/05/2013 2 - Rash Date Reviewed: 03/18/2023 Reviewed by: Jewell Mascorro MA - Fully Assessed Reason for Visit: Procedure [88] Cmt: Laser tx Primary Visit Diagnosis:Encounter for cosmetic procedure [Z41.1] Prescriptions as of 02/03/2024 - hydroquinone (OBAGI NU-DERM) 4 % cream apply daily - tretinoin (RETIN-A) 0.025 % topical cream apply to affected area once every other day. May begin twice daily PRN - COMPOUNDED PRESCRIPTION Apply to affected area. Problem List As Of Date 02/03/2024 Noted Resolved PLASTIC SURGERY NEC [Z41.1] 06/13/2006 Encounter Status:Closed by REMIGIO TRUJILLO on 02/03/24 [facility] Reportson 02-03-2024 Lab Reports [id number] #1.00TIFF [facility] [place] Consultation Noteon 01-30-20 Consultation Note [id number] #1.00TIFF [facility] [place] ED Clinical Summaryon 2023 ED Clinical Summary [facility] Emergency Department [address] [place], [place] [id number] ED Clinical Summary PERSON INFORMATION Name: TOOTIE NICOLE Age: 48 Years Sex: FEMALE : 1975 MRN: Acct#: Visit Reason: Nausea; Headache; HEADACHE Arrival: 01/29/2024 19:18:03 Discharge: 01/29/2024 21:08:00 LOS: 000 01:50 Check In: 01/29/2024 19:18:03 Checkout:01/29/2024 21:08:00 Address: [address] [place], [place] [address]RAD[facility] [id number] PCP: Romeo Chaidez DO PROVIDER INFORMATION Provider Role Assigned Unassigned Laly Kaur RN ED Nurse 01/29/2024 19:21:12 Bin Bello MD ED Provider 01/29/2024 19:24:21 Dameon Varner MD ED Provider 01/29/2024 20:06:12 VITALS INFORMATION Vital Sign Triage Latest Temperature Tympanic Temperature Temporal Artery Pulse Rate O2 Sat 100 % 100 % Respiratory Rate 18 br/min 18 br/min Blood Pressure /91 mmHg /91 mmHg MEDICAL INFORMATION Medications Given: Medication Dose Route ondansetron 4 mg IV Push ketorolac 30 mg IV Push Sodium Chloride 0.9% intravenous solution 1,000 mL (sodium chloride 0.9%. 1,000 mL) 1000 mL Initial Volume 1000 mL/hr IV Left Antecubital Fossa diphenhydrAMINE (Benadryl) 25 mg IV Push dexAMETHasone 4 mg IV Push LORazepam (LORazepam injection) 1 mg IV Push Allergy Information: traMADol; Latex Allergy; Adhesive Bandage; Phenergan; Imitrex; penicillin PHYSICIAN DOCUMENTATION DISCHARGE INFORMATION: Discharge Disposition: Home Discharge Location: Home PATIENT EDUCATION INFORMATION Instructions: Hypertension, Adult, Acnr-sh-Fuca; Migraine Headache, Itfw-yu-Befh Follow-Up: With: Address: When: [place] [address] [place] [address] Within 3 to 5 days DIAGNOSIS: 1:Migraine; 2:Elevated blood pressure reading Patient Understands: Yes - Patient/family/careg iver verbalizes understanding of instructions given Comment: [facility] ED Note-Nursingon 01-29-2024 ED Note-Nursing Patient's male visitor came to desk and advised the patient reports the medications given are not working. Dr. Varner notified. [facility] ED Patient Summaryon 024 ED Patient Summary [facility] - Emergency Department [address] [place] [id number] PATIENT DISCHARGE INSTRUCTIONS Patient Information Name: TOOTIE NICOLE Age: 48 Years Date of : 1975 Reason For Visit: Nausea; Headache; HEADACHE Arrival Time: 01/29/2024 19:18:03 Primary Care Physician: Romeo Chaidez DO Attending Physician: Bin Bello MD Comment: Visit Diagnosis: Diagnoses This Visit Elevated blood pressure reading (R03.0) Headache ([id number]) Migraine (G43.909) Nausea ([id number]) The Pharmacy at [facility] is open Friday through Friday from 9A to 6P and Friday and Friday from 9A to 5P Prescription Information: If you have been given a prescription for narcotics, seek immediate medical attention if you have any difficulty breathing or any sudden status changes such as confusion and sleepiness. If you or anyone you know is experiencing suicidal thoughts, mental health, alcohol and/or drug addiction problems; contact the [facility] 26/05 Crisis Hotline -Text 4IAFJ vk 223074. If you received any narcotics, sedation, or any other medication that causes drowsiness for the next 24 hours, unless otherwise directed: ? Do not drive a car. ? Do not operate machinery such as power tools, lawn mowers, drills, sewing machines, or stoves ? Avoid alcoholic beverages and drugs for allergies, nerves, or sleep ? Do not make important personal or business decisions or sign any legal documents With: Address: When: Romeo Chaidez DO [address] [place] [id number] Within 3 to 5 days Medication Information: The exam and treatment you received today in the [facility] Emergency Department were for an urgent problem and are not intended as complete care. It is important for you to follow up with a doctor, nurse practitioner, or physician?s stores assistant for ongoing care. If your symptoms become worse or you do not improve as expected and you are unable to reach your usual health care provider, you should return to the Emergency Department, we are available 24 hours a day. For those patients who have received Radiology results, the interpretation of your X-ray as given to you by our Emergency Department physician is only a preliminary report. The Radiologist will review your films and if there is a change in the diagnosis you will be notified by phone. Please make sure you have provided a working phone number so we can reach you if necessary. In the event that you had a lab culture while you were a patient in the Emergency Department, you will be notified by phone if there is a need to change your antibiotic. Please make sure you have provided a working phone number so we can reach you if necessary. [facility] Emergency Department has provided you with a complete list of medications post discharge. Please inform your customs patrol officer/provider of your visit and for further instruction on these medications. Any specific questions regarding your chronic medications and dosages should be discussed with your primary care physician(s) and/or pharmacist. Additional medications on your home medication list not specifically addressed. Please contact the ordering physician if you have questions about these medications. amphetamine-dextroam phetamine (Adderall) 20 Milligram every day. estradiol (estradiol 0.05 mg/24 hours weekly transdermal film, extended release) 1 patch(es). FLUoxetine (PROzac 20 mg oral capsule) 1 cap(s) every day. ibuprofen (ibuprofen 800 mg oral tablet) 1 tab(s) Oral (given by mouth) 3 times a day (scheduled) as needed as needed for pain. onabotulinumtoxinA (Botox 100 units injection) 1.25 unit(s) Intramuscular every 3 months. ondansetron (ondansetron 4 mg oral tablet) 1 tab(s) Oral (given by mouth) every 6 hours. take 1 tablet by mouth every 6 hours if needed for nausea. Refills: 0. pramipexole (pramipexole 0.5 mg oral tablet) 1 tab(s) Oral (given by mouth) 3 times a day (scheduled). tiZANidine (tiZANidine 4 mg oral tablet) take 1/2 to 1 tablet by mouth three times a day. Visit Information Allergies: Substance Reaction Symptoms Type Comments Imitrex Drug penicillin Drug Phenergan Drug traMADol Secure, adhesive tape Drug Latex Allergy Environment Adhesive Bandage Other Vital Signs: Vitals and Measurements this Visit (last charted value for your 01/29/2024 visit) Vital Signs This Visit Temperature Oral: 36.4 DegC Heart Rate Monitored: 72 bpm Respiratory Rate: 18 br/min Systolic Blood Pressure: 134 mmHg Diastolic Blood Pressure: 91 mmHg SpO2: 100 % Oxygen Therapy: Room air Measurements This Visit Height/Length Estimated: 162 cm Weight Estimated: 80.5 kg Body Mass Index Estimated: 30.67 kg/m2 Problems List: Problem Onset Comments ADHD Headache, chronic migraine without aura, with status migrainosus Migraine M (more content not included)... [facility] Coding Summaryon 12-30-2023 Coding Summary HTMLBase 64 DhikvbjtZIn2vFs+PGhl YWQ+MV2DSWQsS95pdCXa mJ5lI3COSPjHLbdhHXIK GHmPHfUaxhCgDL9guFVj ZXJu IC8+KW0hIUQcGlhtrNGg u0D9mCI0Y83nsi7kDDxl wFC8AVDkOkDsrdtve7xj nUw7RKeiOkefShQz EVIcuH75RXM0fB44Th77 lBPydIQic2lgeXa2NrAx VPLaFNG4tWpaWNipb5Xn TQKxO75yuSVvh1F7 IGNvbGxhcHNlOyBlbXB0 gI1xZKufpfpuy8mmlmdv Urf4jr85uCSrs2G6gKH4 W5TjehV7YGDchQJe HpaenGHQqH9puksfn8jh oexeUsJoYPZbNIe9HBz4 JJVvwIfyTbSzVZ83DNP9 HYDletOaU2BpZJQg bOitZnG3p1N3Cc2SN2WY YorcM3BCQFZFZJzgcQY+ AL45yd96Q2JdZwoyZks9 LCTiDTN1nPR9sN6u KUSsDQqgr2V9fEW2G4Lx cqKsim8zn1lfIMFiMEfu X62ntLIqy1J3TOOhyVW0 ZUPtaMhuFwZrlY96 Oyc+LXFhrXfdp9ZaLjwk m1sib9jdyNt6JhyfQFEw gqNfbVfzFXR8i3PcIq0h WILnfDG8gUQ3eO3h BlBqXeS6TEtcB069XbWg xDEjLvwjI94iJ2CbaKP+ CGIaUgz6JQGzkImkVT8p E0KjAFUsdvpcxZWq aFdoEK5dGKJgbnikWSVb aQ4hAJGhE3m0ZlFwNaL0 EYruL7TkBGQvkwwbTg30 jD4nPnYcZiF0GMls C4IebfV4EMXznQBlQFsb PNX0B14ac8J1FBEgHMBy TAB8kVE3hA1vgIrfmiqs bGVmdDsgdmVydGlj YZfuXZmdX514NYNapWpm PkNvZGluZyBEYXRlOiAg MDIvMjcvMjAyNDwvdGQ+ PGXmUQB1tUvbEVOn tRRhJThaCg1kkYcvaUwm SZ8tOKZvrjhjYXSuzT5v JBHsmXLywFsvLQ4rLSOp gknvv413NxArWRI4 LSUndGHfA7ImtW9hIiOs ORYxQUUqX3MirMDnZPyc A574SXwmQxW0IPIveqJw Z3WrJLLlaSzuUaC4 u6N7Ez7Kb6IhqfxpO5Pz pWVxWkTnGhzqMTk7T2Wo PjwvdHI+DC98CFHcLV94 MLj1RWR0mZxyPKhx TFTjL5EnbA9xQyPwGEBl ZGRkOyc+PHRhYmxlIHdp ZHRoPScxMDAlJyBzdHls TT0xRg2mAWRcRUJc zRdrgGHrRnRbw2rcJPUv FKslDI3vyGgtD1KqtNU5 OIXft3x1Vj60V02oL0Hw dXA+CAFkpMD6rJR1 nF8vUrViIsC8VOkaU375 RgVnfVBfPcftu4lyq7xq nUn1UcM0JQHmojYalEup HYY1a0IaJp75D58k IHdpZHRoPSIxNSUiIHZh jGfjga3hsN6uAp6+PGNv xMY0wMG7vI1vGtNzYvG1 VAkmF685RxLpeJNt Vwixv2jdy1idvTt7WlIf UVMtkzSimRstLKO6q7Xs Mb19S8RxwKzic8VjRqg5 fg94eLPnn7G9sNA5 B5SjMMXugrvxhKGyqNfr SE9tLPFbauwtESJuxM7f SYUxJ6u8TjReTeN7EGun R9RisbZ9WOHlaCIm LZIxoQVMdD9qlcgdu8se kywpTsTvLRTtMIe4MFu4 OKJqnNdsBpXiHWN3GrV2 HAA9oMGlyN8zyYcl pxquzE0xLks+PVT7xNZa sCJRYH1hZxzfaOE+PHRk YGB1yTpgSIcvYJUyiE2h RNKzP8f8QjBxIlJ2 JKulU0HhhgT7QFTgwGUu UCEkhQMWgK7gbndkw9pi objfJrFyCPTxCRt8GJk3 LWFsaWduOiBsZWZ0 LtH7QHG8dGRouM0wzHvr mumerL3tGgw+QmlydGgg SOA2SMi3N5SmUqo2UGMv yKsmAN8deKKcRTui Cm8xgXmivApjSU7pDYBt idpde281MjGae3mrCUPs rUDrDPwlBUG5C36xv2Z5 EKDhLWEyPOS5jVI0 mR6giUxbrhfiiQRvwIvw isPpjBltXUnoQTayG687 ZIAohIgyCuYoJRa7H1Wu Avv7WZHxrYqvQR6c iRMrYZcbIu7zqScypSmk UR1mICYjkbupd785LaQc m2oaERGefQWzQBezRXC6 I06ij4E5FAIvQOVg SPE0kGU6pW6osCpbdhly bGVmdDsgdmVydGljYWwt LKduX197SJAtaIuiRiAv sOs8G8IaRsj4OOBa dTnyCY7krAQbHQpkMd4f sNsmnLxpFK6kJMWuhbta c392LkScs0mdAFNzyMYk WXhmZFC5G47vo2R1 RWDoMNGfROX0cBQ4oM1r bGlnbjogbGVmdDsgdmVy mKspUEbbIZavR420AYJr cDsnPlBhdGllbnQg MVbkRAy4R0AzYsetrJW+ EY73OEJzNS11zQLspSKi b5ezzFe9LlTjRGQeQPK0 nQeqRGiun1DdNWVt N70rlAAtv6O4VZZheTso bBYdSiNmmMP8mP1cKEuy vzhvw7luvjudSlmtz4ux ym61gO40R07qDIym ZHRoPSIzMCUiIHZhbGln or5mpW2zGq2+PGNvbCB3 pUE4sO0cNBMtTaI6LGhe A712RdMreTKvNxyw r4uiu3ishVd6UkP5HHQd giAvuSskIIN1k0TkOv11 L54uCXloOAJaFGHbUTXd QVZtuIgoad5vsS3c Ii8+ZYJofRC4dLI2hZ9m QpDuDaB7GYxoG995EmDm fICeOglpJ37mO3QyyOA+ EOVrCjh5BROosVxf KK9rtUBuALnkBu8jEIS8 AsUpOnEpKLylC8AnINRh cfbxhkzttKM9GLEzVTIw fC16Kf0luKsvAQOi iZPOhV5sbquri3bxjcwk QjUzUNEzIRy7BSg8MMRa aHblCwTjLNT6LuG0BFV5 gKJafQ2ixFjhcual nJ2aR1QeSWJsxaoiFc75 kK6gAsIwIdZ4EMexSva+ ZaJTKLRjAJRPDa4BAOAS RTwvdGQ+PHRkIHN0 cInnYHyaIUJdqX4jYXIg R2o7HtTpIyX4PGuiV6Kl LDScnurfAw82jM0cQpUp HpO4SApgO2IapkA1 OMQnaLLpBBloVWK6V26j v9I7CGXrJLRcUQK4aXS4 wA8qkFoqzldxsNPupZtc dmVydGljYWwtYWxp H319LCIksOvlSsYvTcIa ZrQ5CyT6S8HqMfm8NEDz yOodBP8ayZOhMCadVe3l bIedhUraRB5dHRVs bnbmKWZzqR9wMUVzzONb cJjvQM3eMUQwlarde970 HrQbAYD2SXTisDBtS6Co iS2wHhTrCEAlMPQr O4MisUBfUMziO730WKjp UxW5GPKxvgTdG6CdQZVj zAxcYjN8t2T5Tk46LQVU ZWFyczwvdGQ+PHRk VKM0jBvmRSgvOWIvkY5d CACjM7x6FdDuSlI2KRpu D2UrCBGhskjlIk94zW0b XoBhEbJ2SZovC3Kc gjK2YQOpbJWxEIprHAE4 Q90wc8F7STKmTGIjPRE8 jFD8wX3ahKbmmpxzwHFk dDsgdmVydGljYWwt VHuyM840VQTntYxrDzUX TUFMRTwvdGQ+PHRkIHN0 vWgfVZtuCWTxnO1bNRNc J1b9BgHmMeJ2GVdr B3ApUZUqyafjBo88kX8m BiRzLtN7ZKxlF8IazaN1 QTXzjIBqLIzcJHO4E14y r7Y3OZRyOOVkWPU6 wFV5dN7yhGevbrawlOAl dDsgdmVydGljYWwtYWxp S677JAFpzLhdLrTmHYTw VK0voGmtgBO+PC90 xp17U2EoKcjlNxm6BEOs FTN0zGE8lE4gDNEmEEjb q4N8lJA1I4FcnnHxer1t v1ynRWEwGNbvJ64y aKYji8D1YESasMK2HENt sFpiXrSpvT11Zuf+PGNv uKuic2DwJzcsn8tvm4fm zHb8UdYwFBClgsLz wOaiDEK5e6TiEx52W56w IHdpZHRoPSIzMCUiIHZh nUgytb6nnG1fWg8+PGNv yLL9yXJ2zZ7cOrNk XpK8AHjrQ425OcNcoOYz Vdpla7fav8zpuBf7AnZc ZUYajvLlkYcqBVI2h2Gf Ye50U6YyeTmro1Wz Svi7lo36aPTgh4J7kNU7 E1DfUCBpzjpoqKKjbZbu RC2jFLEoszeuFHPjsY7p SZGnD8q6MnKeBrU9 TBhtW4XypoC7PQHimTCk ANGnfYSLuB4vyakjd1lt gmayAvZsSGLmASt6FOa3 LWFsaWduOiBsZWZ0 UmV2XWD6mUQivT9esZtv fgwdcN3wNzc+FJr9f5jk vDQyCS8oxFB2MW47JP66 lKJdh4O9nCM4C2Wr BLXnullyjiprwHH6UWYy WOSesX82Hz7ejBsjNh0d AFMrNZO3BSWweLUeG6Il vE1sTwExEJIcESDf A4BfuMVwDMqqO331MZiq LmI6DLDtziUvJ5HnZCBd jOlfTsV1t0U7Ap5WHL00 JG88BM55hOXgz3S7 hWI0W2YaQXZdmjzrycom jYN2EZDtJXBisF52Pz7t iChnCc1dWPOfYBQ1ERDz kWGfU3FcnO8cQgDq TUJiHTVbB5QezKMfTCic B120HZggKiQ1JCOldsKe K8TqZSRphAblAxU0r3V1 Zb2SRj83UQ79DJ70 hXJkz3A9gJI6G3EpDHEu qqzuxmtarCH5PINnNWFh tW09Jx2dwCgwWd4hZRAk FKC8OECwtXBfM3Xb aC4cItUgPDHxDOZsZ6Sp sZWkSVgmF222XLckGuQ8 NZZrqlXhC8YdOSZljLhx JzG8l5N9Wg7CEMcp igc2K0IdNgufxXC+PC90 NPJeQL65jTOzsZAdl4wc uYm9HtRkMNHxBSH0jLow QRodw3HaNCCmL44h bGF (more content not included)... Normal [facility] ED Clinical Summaryon 2023 ED Clinical Summary [facility] - Emergency Department [address] [place], [place] [id number] ED Clinical Summary PERSON INFORMATION Name: TOOTIE NICOLE Age: 48 Years Sex: FEMALE : 1975 MRN: Acct#: Visit Reason: Headache; Headache - Recurrent; MIGRAINE Arrival: 2023 01:57:25 Discharge: 2023 04:06:00 LOS: 000 02:09 Check In: 2023 01:57:25 Checkout:2023 04:06:00 Address: [address] [place] [address] PCP: Romeo Chaidez DO PROVIDER INFORMATION Provider Role Assigned Unassigned Tru Matt DO ED Provider 2023 01:58:43 Manjula Jo [employer] SUPERVISOR Nurse 2023 02:02:36 VITALS INFORMATION Vital Sign Triage Latest Temperature Tympanic Temperature Temporal Artery Pulse Rate 72 bpm 69 bpm O2 Sat 100 % 92 % Respiratory Rate 18 br/min 16 br/min Blood Pressure /95 mmHg /95 mmHg MEDICAL INFORMATION Medications Given: Medication Dose Route HYDROmorphone (Dilaudid) 0.5 mg IV Push LORazepam (Ativan injection) 0.5 mg IV Push magnesium sulfate 1 gm IV Piggyback Sodium Chloride 0.9% intravenous solution 1,000 mL 1000 mL Initial Volume 1000 mL/hr IV Left Antecubital Fossa ketorolac 30 mg IV Push ondansetron 8 mg IV Push Allergy Information: traMADol; Latex Allergy; Adhesive Bandage; Phenergan; Imitrex; penicillin PHYSICIAN DOCUMENTATION DISCHARGE INFORMATION: Discharge Disposition: Home Discharge Location: Home PATIENT EDUCATION INFORMATION Instructions: Migraine Headache, Zbai-mp-Xbak Follow-Up: With: Address: When: Romeo Syedlaura [address] [place] [address] Business (1) Within 3 to 5 days With: Address: When: Lisa Martínez [address] [place] [address] Business (1) In 1 day 12/26/2023 Comments: home call Dr Martínez's office in the am, for a recheck apt Prescription for ketorolac 10 mg You are welcomed to return as needed. Sanjay MATT< ER PHYSICIAN< Verna Cornelius DIAGNOSIS: Recurrent headache Patient Understands: Yes - Patient/family/careg iver verbalizes understanding of instructions given Comment: [facility] ED Note - Physicianon 2023 ED Note - Physician Patient: TOOTIE NICOLE Age: 48 years Sex: FEMALE : 1975 Associated Diagnoses: Recurrent headache Author: Tru Matt DO Basic Information Time seen: Date & time 2023 01:59:00, Ambulatory post the fish bowl. . History source: Patient, family. Arrival mode: Private vehicle, walking. History limitation: None. History of Present Illness The patient presents with migraine . Review of Systems Constitutional symptoms: This patient presents to the emergency room for evaluation of recurrent headaches, which she states is similar in the past, around her head, across her forehead behind her eyes, down to her neck, she states that she received Botox injections for these headaches, and she is going on to the third month since last Botox injection, and she needs to see her doctor, neurologist, Dr. Martínez, with whom she does not currently have an appointment, she also is out of her ketorolac pills, 10 mg, which Dr. Martínez prescribes for her headaches. Otherwise, no chest pain no shortness of breath, she does smoke, she states she is not employed outside the home does not require work excuse, said no fever, no COVID symptoms, has not been around anybody with COVID or influenza, denies chest pain, denies abdominal pain, states his headache is slightly normal, is just that She can get over the headache. She has not taken any medications for this. She states that magnesium infusions are helpful for these problems. On exam she is pleasant and alert, known to me from previous visits to the emergency room, seen in the presence of her boyfriend, room #6, observed to be walking into the emergency room, her head is normocephalic, neck is easily supple, pharynx is symmetric there is no stridor or hoarseness or injection, pupils equal round reactive, her neck is supple without any anterior posterior supraclavicular nodes, lungs are clear, there is no expiratory wheeze or rales or paradoxical chest motion, heart rate and rhythm is regular murmur, the abdomen is soft without discomfort, extremities are nonswollen nontender, skin is warm and dry. Her neurologic exam is symmetric and intact, I do not think imaging is indicated, she has been here several times for these headaches in the past, and has been treated with Dilaudid, Ativan, Benadryl, Zofran, successfully. Family history, negative for aneurysm, personal history is negative for aneurysm or brain surgery, she anticoagulants, no history of brain tumors.. Health Status Allergies: Allergic Reactions (Selected) Unknown Adhesive Bandage- No reactions were documented. Imitrex- No reactions were documented. Latex Allergy- No reactions were documented. Phenergan- No reactions were documented. Severity Not Documented Penicillin- No reactions were documented. TraMADol- Secure, adhesive tape.. Medications: (Selected) Inpatient Medications Ordered Sodium Chloride 0.9% intravenous solution 1,000 mL: 1,000 mL/hr, IV Prescriptions Prescribed ketorolac 10 mg oral tablet: 10 mg = 1 tab(s), Oral, TID, PRN: for pain, 10 tab(s), 0 Refill(s) ondansetron 4 mg oral tablet: 4 mg = 1 tab(s), PO, q6hr (int), take 1 tablet by mouth every 6 hours if needed for nausea, 10 tab(s), 0 Refill(s) Documented Medications Documented Adderall: 20 mg, Daily, 0 Refill(s) Botox 100 units injection: 1.25 unit(s), IM, q3mo, 1 EA, 0 Refill(s) PROzac 20 mg oral capsule: 20 mg = 1 cap(s), Daily, 0 Refill(s) Toradol: 30 mg, q6hr, PRN: as needed for pain, 0 Refill(s) estradiol 0.05 mg/24 hours weekly transdermal film, extended release: 1 patch(es), 0 Refill(s) ibuprofen 800 mg oral tablet: 800 mg, 1 tab(s), PO, TID, PRN: as needed for pain, 0 Refill(s) pramipexole 0.5 mg oral tablet: 0.5 mg, 1 tab(s), PO, TID, 0 Refill(s) tiZANidine 4 mg oral tablet: take 1/2 to 1 tablet by mouth three times a day. Past Medical/ Family/ Social History Medical history: Resolved Migraines ([id number]): Resolved.. Surgical history: Rhinoplasty ([id number]) on 07/10/2016 at 40 Years. DNS (deviated nasal septum) ([id number]) on 07/10/2016 at 40 Years. Nasal polypectomy ([id number]). Appendectomy ([id number]). Hysterectomy ([id number]). Colon ([id number]). Comments: 11/18/2023 21:34 Etc/GMT+5 - Shuff, Patricia RN resection. Family history: No family history items have been selected or recorded.. Social history: Social & Psychosocial Habits Alcohol 06/04/2023 Alcohol Use: Never 09/15/2023 Alcohol Use: Never Substance Use 06/04/2023 Substance use: Never 09/15/2023 Substance use: Never Tobacco 04/24/2016 Risk Assessment: High Risk 04/10/2022 Smoking tobacco use: Current everyday tobacco Number used per day: 1/2 ppd 06/04/2023 Smoking tobacco use: Current everyday tobacco Number used per day: 11/04 ppd 09/15/2023 Smoking tobacco use: Current everyday tobacco Comment: 11/04 ppd - 09/15/2023 21:47 - Olimpia BREWSTER, Ce (more content not included)... Normal [facility] ED Patient Summaryon 024 ED Patient Summary [facility] - Emergency Department [address] [place] [address] PATIENT DISCHARGE INSTRUCTIONS Patient Information Name: TOOTIE NICOLE Age: 48 Years Date of : 1975 Reason For Visit: Headache; Headache - Recurrent; MIGRAINE Arrival Time: 2023 01:57:25 Primary Care Physician: Romeo Chaidez DO Attending Physician: Tru Matt DO Comment: Visit Diagnosis: Diagnoses This Visit Headache ([id number]) Headache - Recurrent ([id number]) Recurrent headache (R51.9) The Pharmacy at [facility] is open Friday through Friday from 9A to 6P and Friday and Friday from 9A to 5P Prescription Information: If you have been given a prescription for narcotics, seek immediate medical attention if you have any difficulty breathing or any sudden status changes such as confusion and sleepiness. If you or anyone you know is experiencing suicidal thoughts, mental health, alcohol and/or drug addiction problems; contact the [facility] 26/05 Crisis Hotline -Text 2VVBR zy 612436. If you received any narcotics, sedation, or any other medication that causes drowsiness for the next 24 hours, unless otherwise directed: ? Do not drive a car. ? Do not operate machinery such as power tools, lawn mowers, drills, sewing machines, or stoves ? Avoid alcoholic beverages and drugs for allergies, nerves, or sleep ? Do not make important personal or business decisions or sign any legal documents With: Address: When: Romeo Chaidez [address] [place] [address] Business (1) Within 3 to 5 days With: Address: When: Lisa Martínez [address] [place] [address] [employer] (1) In 1 day 12/26/2023 Comments: home call Dr Martínez's office in the am, for a recheck apt Prescription for ketorolac 10 mg You are welcomed to return as needed. T H SHAKA< ER PHYSICIAN< H Adri [facility] Medication Information: The exam and treatment you received today in the [facility] Emergency Department were for an urgent problem and are not intended as complete care. It is important for you to follow up with a doctor, nurse practitioner, or physician?s stores assistant for ongoing care. If your symptoms become worse or you do not improve as expected and you are unable to reach your usual health care provider, you should return to the Emergency Department, we are available 24 hours a day. For those patients who have received Radiology results, the interpretation of your X-ray as given to you by our Emergency Department physician is only a preliminary report. The Radiologist will review your films and if there is a change in the diagnosis you will be notified by phone. Please make sure you have provided a working phone number so we can reach you if necessary. In the event that you had a lab culture while you were a patient in the Emergency Department, you will be notified by phone if there is a need to change your antibiotic. Please make sure you have provided a working phone number so we can reach you if necessary. [facility] Emergency Department has provided you with a complete list of medications post discharge. Please inform your customs patrol officer/provider of your visit and for further instruction on these medications. Any specific questions regarding your chronic medications and dosages should be discussed with your primary care physician(s) and/or pharmacist. Medications That Were Updated - Follow Below Instructions [id number], [address], [place] [id number], [phone] Updated: ketorolac (ketorolac 10 mg oral tablet) 1 tab(s) Oral (given by mouth) 3 times a day (scheduled) as needed for pain. Refills: 0. Other Medications Updated: ketorolac (Toradol) 30 Milligram every 6 hours (scheduled) as needed as needed for pain. Medications to Continue That Have Not Changed Other Medications amphetamine-dextroam phetamine (Adderall) 20 Milligram every day. estradiol (estradiol 0.05 mg/24 hours weekly transdermal film, extended release) 1 patch(es). FLUoxetine (PROzac 20 mg oral capsule) 1 cap(s) every day. ibuprofen (ibuprofen 800 mg oral tablet) 1 tab(s) Oral (given by mouth) 3 times a day (scheduled) as needed as needed for pain. onabotulinumtoxinA (Botox 100 units injection) 1.25 unit(s) Intramuscular every 3 months. ondansetron (ondansetron 4 mg oral tablet) 1 tab(s) Oral (given by mouth) every 6 hours. take 1 tablet by mouth every 6 hours if needed for nausea. Refills: 0. pramipexole (pramipexole 0.5 mg oral tablet) 1 tab(s) Oral (given by mouth) 3 times a day (scheduled). tiZANidine (tiZANidine 4 mg oral tablet) take 1/2 to 1 tablet by mouth three times a day. Visit Information Allergies: Substance Reaction Symptoms Type Comments Imitrex Drug penicillin Drug Phenergan Drug traMADol Secure, (more content not included)... Normal [facility] Ambulatory Visit Summaryon 0 12-23-2023 Ambulatory Visit Summary NICOLETOOTIE :1975 Visit Date:12/23/2023 Ambulatory Visit Instructions Your Diagnosis ADHD COPD mixed type Mild recurrent major depression Smoker Sleep disorder Low vitamin D level Migraine with aura Colon cancer screening Adult BMI 30.0-30.9 kg/sq m Your Care Team Attending Physician - Romeo Chaidez DO Primary Care Physician - Romeo Chaidez DO This Is Your Medications List amphetamine-dextroam phetamine (Adderall XR 10 mg Cap-ER) amphetamine-dextroam phetamine (Adderall XR 20 mg Cap-ER) Contact prescribing physician if questions or concerns albuterol (albuterol 90 mcg/inh inhalation powder) aripiprazole (Abilify 2 mg Tab) clobetasol topical (clobetasol propionate 0.05% top oint) dupilumab (Dupixent Pre-filled Pen 300 mg/2 mL subcutaneous solution) estradiol (Estradiol Patch 0.05 mg/24 hours twice weekly transdermal film, extended release) fluoxetine (Prozac 20 mg Cap) hydrOXYzine (hydrOXYzine hydrochloride 10 mg Tab) ketorolac (ketorolac 10 mg Tab) ondansetron (Zofran 4 mg Tab) pramipexole (Mirapex 0.75 mg oral tablet) tizanidine Procedures Performed Total hysterectomy (05/14/2022), Appendectomy, Breast, Breast implant, Sinus. Discharge Vitals Heart Rate (Peripheral) 81 Blood Pressure 110/80 Height 163 cm Height 64 in Weight 80.1 kg Weight 176.22 lb BMI 30.15 What to do next Scheduled Follow-Up Appointments Friday 5:20 PM EDT With: Romeo Chaidez DO Where: [facility] [place] [facility] Medicine Office/Clini c Noteon 12-23-2023 Family Medicine Office/Clinic Note Chief Complaint F/U HPI Staff Patient here today to F/U ADHD,anemia, MMD, Migraine SHIRIN 09/17/23 NEEDS REFILL Patient has purchased Driven to distraction but has not read yet. Neurology Assessment 10/30/23 ADHD followup: Sleeping well: Yes, 6-8 hours Blood pressure:Reviewed, _ Concerns/complaints: None Controlled substance: Adderall Urine Drug Screen done:UTD Medication Agreement updated: Yes Patient will try Cologuard for screening. Patient interested in discussing smoking cessation History of Present Illness 47 Years old Female here for 3 mo f/u, med mgt HPI staff / Chief Complaint confirmed with the patient Social: The patient is not The patient is not currently working; on disability for migraines *was granted disability in the last two months It wasn't easy to get The patient has 3 biologic child(troy) - and 2 step children 2 grandchild(troy) home-schooling her grand children here with her youngest son - César Screening: Colon Cancer screening: agrees to cologuard Breast cancer screening: overdue; gets this done at the [facility] Pap smear: Materials Assistant - Dr. Sarah DAVIS Labs: September 2023 Smokers: Low dose lung CT: List of Providers: Neurology - Dr. Lisa Martínez Materials Assistant - Dr. Sarah DAVIS Derm - Dr. Francis HPI staff / Chief Complaint confirmed with the patient Interval history: hasn't read Driven to Distraction Oct 30, 2023 - Neurology - Dr. Lisa Martínez botox injections for migraines (anything tagged from the patients medical record will be at the bottom of this section) LABS Cr/eGFR: No qualifying data available. A1c: Hgb A1C %: 5.6 % (10/01/23 16:55:00) TSH: TSH: 0.96 mcIU/mL (10/01/23 16:55:00) Vit D: No qualifying data available. PHYSICAL EXAM Constitutional: Vital signs reviewed; TOOTIE NICOLE is well nourished, no acute distress Head: Atraumatic, normocephalic Eye: EOMI, normal conjunctiva ENT: Moist oral mucosa, external inspection of ears and nose is unremarkable Neck: Trachea is midline, no tenderness Lungs: Clear to auscultation, non-labored respiration - expansion is symmetric Heart: Normal rate and rhythm, normal peripheral perfusion Lymph: Deferred Abd: Deferred : Deferred MSK: Normal gait and station Skin: Warm, dry Neurologic: Awake, alert and oriented, speech is normal, no focal deficits, CN II-XII grossly intact Psychiatric: Cooperative, appropriate mood and affect , judgement is appropriate *This note has HPI and PE sections combined in an effort to minimize the inconvenience/ cumbersome nature of documenting in our EMR* From last note: 07/23/2023-neurologyMacrina Martínez Chronic migraines Noted to be due for Botox injection tomorrow Patient reports headaches are worse right before and right after likely medication is not as effective Notes that she does have some slurring of her speech and trouble with her thought process associated with her migraines MRI of brain and cervical spine in 2019 did show some small vessel changes but did not show any evidence of demyelinating disease or stroke Notes that she could have something going on in her low back-EMG revealed left S1-S2 radiculopathy which appears to be more chronic Legs continue to have tingling sensations Some difficulty with walking and has a hard time getting up Has not completed physical therapy Denies incontinence Occasional stress incontinence Ibuprofen and ketorolac are not beneficial Zanaflex helps somewhat Diagnosis list includes cervical spondylosis, intractable migraine without aura, chronic migraine, hypersomnia, restless leg syndrome, primary insomnia, cervical radiculopathy, chronic daily headache, itching, paresthesia bilateral legs Migraines are 50 to 75% better Referred for physical therapy Patient inquired why she was not being sent for MRI evaluation of low back; discussed how she needs to fail physical therapy before insurance will pay for MRI of low back Continued neck pain and cervical C8-T1 radiculopathy with underlying spondylosis and paresthesias to her hands and feet *Noted that MRI of cervical spine and/or shoulder was ordered by PCP but denied by insurance We will proceed with updating EMG of bilateral upper extremities last completed in November 2019 We will proceed with updating EMG of bilateral lower extremities which was last completed in December 2019 RLS-continue Mirapex Administered Toradol for acute migraine Consider MRI of lumbar spine Zanaflex 4 mg p.o. half to whole nightly Recommend weight loss Noted that PCP is now prescribing Adderall Avoid sleeping more than 8 hours in bed Patient questioning if she may have narcolepsy --> deferred to PCP [1] Interval history: won't take her adderall when she's close to getting her botox injections as it seems to increase migraines the patient's daughter has ADHD and struggles with anger issues [2] Review of Systems PHQ Score Initial De (more content not included)... [facility] [place] Comment on above: Result Comment: Elec tronically Signed By: Romeo Chaidez DO\.thaddeus\Date and Time Signed: 12/23/23 20:55 EST Patient Educationon 12-23-19 Patient Education Mental and Behavioral Health Attention Deficit Hyperactivity Disorder, Adult Attention deficit hyperactivity disorder (ADHD) is a mental health disorder that starts during childhood. For many people with ADHD, the disorder continues into the adult years. Treatment can help you manage your symptoms. There are three main types of ADHD: ? Inattentive. With this type, adults have difficulty paying attention. This may affect cognitive abilities. ? Hyperactive-impulsiv e. With this type, adults have a lot of energy and have difficulty controlling their behavior. ? Combination type. Some people may have symptoms of both types. What are the causes? The exact cause of ADHD is not known. Most experts believe a person's genes and environment possibly contribute to ADHD. What increases the risk? The following factors may make you more likely to develop this condition: ? Having a first-degree relative such as a parent, brother, or sister, with the condition. ? Being born before 37 weeks of (prematurely) or at a low weight. ? Being born to a mother who smoked tobacco or drank alcohol during . ? Having experienced a brain injury. ? Being exposed to lead or other toxins in the womb or early in life. What are the signs or symptoms? Symptoms of this condition depend on the type of ADHD. Symptoms of the inattentive type include: ? Difficulty paying attention or following instructions. ? Often making simple mistakes. ? Being disorganized. ? Avoiding tasks that require time and attention. ? Losing and forgetting things. Symptoms of the hyperactive-impulsiv e type include: ? Restlessness. ? Talking out of turn, interrupting others, or talking too much. ? Difficulty with: ? Sitting still. ? Feeling motivated. ? Relaxing. ? Waiting in line or waiting for a turn. People with the combination type have symptoms of both of the other types. In adults, this condition may lead to certain problems, such as: ? Keeping jobs. ? Performing tasks at work. ? Having stable relationships. ? Being on time or keeping to a schedule. How is this diagnosed? This condition is diagnosed based on your current symptoms and your history of symptoms. The diagnosis can be made by a health care provider such as a primary care provider or a mental health career orientation teacher. Your health care provider may use a symptom checklist or a behavior rating scale to evaluate your symptoms. Your health care provider may also want to talk with people who have observed your behaviors throughout your life. How is this treated? This condition can be treated with medicines and behavior therapy. Medicines may be the best option to reduce impulsive behaviors and improve attention. Your health care provider may recommend: ? Stimulant medicines. These are the most common medicines used for adult ADHD. They affect certain chemicals in the brain (neurotransmitters) and improve your ability to control your symptoms. ? A non-stimulant medicine. These medicines can also improve focus, attention, and impulsive behavior. It may take weeks to months to see the effects of this medicine. Counseling and behavioral management are also important for treating ADHD. Counseling is often used along with medicine. Your health care provider may suggest: ? Cognitive behavioral therapy (CBT). This type of therapy teaches you to replace negative thoughts and actions with positive thoughts and actions. When used as part of ADHD treatment, this therapy may also include: ? Coping strategies for organization, time management, impulse control, and stress reduction. ? Mindfulness and meditation training. ? Behavioral management. You may work with a assistant women's basketball coach who is specially trained to help people with ADHD manage and organize activities and function more effectively. Follow these instructions at home: Medicines ? Take [id number]-[id number] and prescription medicines only as told by your health care provider. ? Talk with your health care provider about the possible side effects of your medicines and how to manage them. Alcohol use ? Do not drink alcohol if: ? Your health care provider tells you not to drink. ? You are , may be , or are planning to become . ? If you drink alcohol: ? Limit how much you use to: ? 0?1 drink a day for women. ? 0?2 drinks a day for men. ? Know how much alcohol is in your drink. In the [place] one drink equals one 12 oz bottle of beer (355 mL), one 5 oz glass of wine (148 mL), or one 1? oz glass of hard liquor (44 mL). Lifestyle ? Do not use illegal drugs. ? Get enough sleep. ? Eat a healthy diet. ? Exercise regularly. Exercise can help to reduce stress and anxiety. General instructions ? Learn as much as you can about adult ADHD, and work closely with your health care providers to find the treatments that work best for you. ? Follow th (more content not included)... [facility] [place] Coding Summaryon 12-03-2023 Coding Summary HTMLBase 64 KfoebulvUUv1bAx+PGhl YWQ+TZ3YBBKuN29odCZu iX0cR5NHZEhCQiobZSHE TLuAEhCqhgVrIE4zyWOm ZXJu IC8+CA3jSQLzRjnrqSLh a2E1sPJ5M49xsb3pHOqx sYH9XJQhUaRsoxtcu6jf jYn9RCmnIyffLsDj BBJliC86QXR2vU36Ao72 tAGmpJOdo4nwaTk6RaYh MECaGPZ0tOxcHScgp5Go JSXuA37ztJFmz4S3 IGNvbGxhcHNlOyBlbXB0 zF9dCKdrzirll4fshucm Qaw1cy35jJExu4X7jDB8 Q5FntmB6QJVsfBIx ZaawkCOIkT1jyctia7yn ybfjHdSrPUYlCAt2WJf6 JSNwvVpdChLrPT79IIW8 SOMrhxVuP4DoSGOu eGwfNjG0u9F3Mh1BK5WT VwfrD7THVPUVZGdkyRX+ FF56ej22A5TdZoixYbd9 RFMrRTA9vXR6iH6d GAEsGCbih3F5hWN7N9Fw ajFotm6tc1fiGDSjRRjp E51mrGPwh7L3DSUduEL4 BPGmfUsbZyPitS69 Oyc+WGTitGqvk5NlQyob b1mgl2gkuRm5TcdfLGCw xvKwtMvdCYQ3j9EuEe1o GCYnzCK7oYU0lA7t TwQpLnK5HJufU980RjDr uSBcUvxmA99gU1LctKU+ MDGvBtt6FBDxyDdjQV9t X0DsIPHgwrfmyGGb tRrfDE0mFZRluojwUULa wH9iNILiW9e1InQiXkP6 LOkpJ3VqDIFvqvcnBf45 eF2mDbPhQtQ2KKnc D7MzgeO6PUZomSSlYMdo JKL4Y57qq2L2FEYyBVAt PMV9eVX1sW0xtPnwsvfc bGVmdDsgdmVydGlj PHteGTjfD444GYHwcZov PkNvZGluZyBEYXRlOiAg MDEvMzEvMjAyNDwvdGQ+ DFRjAGN8wRdfTCOp oDTcPEyhYp7mxMkrvSkz MT1oLEPmjuezWPXjyL5h MIBbdXZmaAjzRM8qRNFn ohiav430FwIjMRC2 RPFeaXTkN9NxtT5kYaBz MUVeFNIwE4JteXXiUDqo M114ZBzzQlY3TDYgbdJq L9OhDZFlyRvlMnC2 y7P9Mf4Dz5RlmklsN0Mv iPIbFnYzTvaeUNj0G3Ys PjwvdHI+FZ35SLMaRH05 LSa2RJH0yBwaRTwd XYOwX1ZnwR9zGcNpLHFg ZGRkOyc+PHRhYmxlIHdp ZHRoPScxMDAlJyBzdHls QK5tNr1bIBBqQQDd mCspjSFoDbCzz9xzEWYh IOgwYB4liEuzE3PfcJB5 HYAxs6a0Kq95H59oY2Ge dXA+CNPebVH2jCZ0 cG2nVlBmYmW6RIfnJ680 KaOheKIwHgjau5vfa4ke zKb4VyF4FTTfajGefTxe FVD9x2NfHb37A74l IHdpZHRoPSIxNSUiIHZh eUheud4wbU1pCe3+PGNv mQL5fPC8sB5fXyVpZyM4 NRytT500IqTooVIq Wxlnc9ypq4vlkRv5UgYj IEJhkhLvlEfrMBH1b5Za Ud94R0VwgXxkb5VhClt1 ls09cDYxc7A2kCZ5 Q3OjXATrdsbpqMVrvSxj MN7fDZGyouzeCSObtT8y QSKlZ8n4PyWrImT8RUqk P7VjwwY8HXGgeHMb BFKotBMNoK6xekeab2yy weceOaIvIVGrHPn3FEt2 VYIizMuiNjEpDZQ9TeY7 OPQ1eXJqtT6dbVnz cxjmtZ9tLjt+YQA3mTWa hLCZVJ8kKqwanKO+PHRk AMW5mQhrHDqeNZHlyL9p OQCvD4q8ChSrRoG2 QGllU1QkpkF3PHWpxQDf YEObeJAQgX1uzycqc0uk ncafMaNtPIIuGDl4MBs9 LWFsaWduOiBsZWZ0 HiS0YUX3hRYvhC9pqMrs usrsuK8aIso+QmlydGgg VRG8PNo4B4OgDdd4YBFt sFvhTO6mtMAbRJdv Hl2pnEiuvBfrGM9lHLOu jjrng362WrTuo1pjDFCl pISoLIumFJO4A57so8Q3 PGFmCPXePPV6mLA0 qY2vbUezlpymhLCtoHcb knBbrVcbXTmzOYoxF699 HGKiqGudMnHnOQn7N0Ww Bzy2NQSttNhjXI7m oMOaMSevGx3zoXevrHqj NY5vSWTxxgszr094VyMp d0mqTSRvcWXaKDyfMZI2 S89rz7V6GJDjNKWt IJI2vCT2rP1kpAizlgwg bGVmdDsgdmVydGljYWwt UZhyK095AKJpjHbrGfKv mSq1E8WuLrl8ZTXj eBbvHI9snUUdCIvxAw2k cUmkpGawQA4rXZFktaak w040LqNde0fpTHOrfFBk XKurTSW7W61vl1F6 ADFxKFGjUIX1tHH1jI6b bGlnbjogbGVmdDsgdmVy jTqxSNnfCCmvS641IMRo cDsnPlBhdGllbnQg GRgfEVv8Y0NcGcvymJW+ AU49UWMeWI52tMAfqMJe f7edxHx4KcJrEZAdJEL7 hDdpRHktm0McDFGm N93osVOiz8P5VUVgkJll gUAlNzPjwAB7dM8eXTrw splvg4cexffbIzhin5uh yl46pP81R15wJCxg ZHRoPSIzMCUiIHZhbGln bv6ptH3hMo6+PGNvbCB3 zVO4jH9hXOTdPcI1FQtb Q819QrYkyZXpWzbl n5qsh7zuvNu7GiK1HEAy bnYspTtqSRG3b1YmPd40 W07dVIifKCZkVOYbTTXt TBGuvSubaz9afZ0b Ii8+BWApgQQ1jSR4tZ4u PqGaHwN6XMupD041HvRk uYBhBcxmT26wR4ZdvAC+ NBHxDxp8XFPbcGvp OA8jnSAdUFnsVr6jRJX9 HpCoIkHcCMzrC2LdPUKp gfnilyxjiNB0XJMkQNYu gZ56Vy9vhOehVRZh oXBPiD4jjvpcz3obnwri ZwKhYQOhKWc9EIq6EEJc mVojVgXuKJX9PdR5SJA5 lYOgsS4zjEaqefuq oN9pO0AsPUGxdvjvEv38 jB0hZoYkItP7SUhdDoo+ XeGLVBVlJEQYOt8BLWJK RTwvdGQ+PHRkIHN0 jFooRVdcRFAspQ7xICTk F4n6BhHsQiG2FZhzV7Gm IHHddcwnRd01lI1cEbIv DpU6VSkgC7VislY9 SICgiYIxKPdzMCO6G66i m4S6SAMxCISlDQU6dON7 vY2qmHmpmayurJIcvBay dmVydGljYWwtYWxp N206HKFplXntNgTwCqYm DgL2ZoH3B4OeMwo8YJMa xAbsFD3riTSkVPboTn0v fOuvzKobKA1oARPl qjjkBTQubQ8cSGAigGXa bVzuOV1dMENuoucme774 HnRgIHK3UQPbiAPjE3Gu eW5yWhJjRLDtOYXd E2WlvITdXQlfA110AZcs HyL9KYWszaWiJ9MxAUPy hTqhUzU4f4V3Ho44JVEA ZWFyczwvdGQ+PHRk KGH3sIayZBzhVHHsqK8l QWLnF5s0ZcMhOcJ3MGyx H1UkHOFqsjokGs21uV0b HxQvKuW5YHisI5Cz oaV6ZSHutUVpEHubWFT1 U94bm4O2DKOdTDCcDKD0 yYV8zK2jxCrxpgibkWCl dDsgdmVydGljYWwt JInyP471YQMcoOzeGuOA TUFMRTwvdGQ+PHRkIHN0 jSokEPedNQKnlT7zLMLz B3g5YrHzHlL9UFom P5SsKTYaargyZr13dO2a DyQlJqF7MEbsR9MkcwR4 YRCsaFPzRYucRBB2H31o s7X9VBRqCYUqRBN2 pRV7sQ4oxAgrbbgukCNk dDsgdmVydGljYWwtYWxp X399IQQguSvsEuExUJCz LI8wtYhuyGF+PC90 qv23K4ItLdziZwm9RUPs PSB9pCW2wF3zVIAsPEzu e2A8dDE4D9YoriElhp5k a1kfIFAhBGgdN82n dSDse9J1AVYkeDD9MPLd rErtWsPxcH30Tst+PGNv nWghd1ZsSxvmi1lhf7ez iXh9NbMyZLFigaOu rXjoWGI0c3DrYe35L54x IHdpZHRoPSIzMCUiIHZh hAkezr3bmP8jAd2+PGNv kZA5cBO4kU5wMdOt ZgW5KOocV799MtGfuQIl Olgbn6mey6vuzSx5AgDg IZLlcqZdsDjoFMA3r9Pi Bh05T4AavRlin2Xr Qgj8bl05mEGue6X4rEB3 M0WoOSHyqisetPBwjBsx WY7xOSSnxvprMMZcvC0y IRDzL8u7IvFcYzJ1 ZAhzB0ZwvdN9AJCejMKw BGEajACPlF9lbzzdu9ck mtxiKzCgRMFgKKz9SXw9 LWFsaWduOiBsZWZ0 WlY7BNT1kILrpN7vqMmb kojksX2rIso+HKe5s9qu sRUpMD7nyVD9EC80IN87 aOUjs2O2aCT2A5Op BHAcgomdzrmucQC3TVOq BUDxzG57Uh1jrAufMy8r BKGfOXO0YEMnqDLoE5Le vI5uKlHsVDEhFKDf W3OtbEJaYBfpM600LSgy ShN3YOVowuMrV6HdBWUh bApnFnD3k6N2Lu9VVW78 QB22YQ20dEHtb6P4 oJE8X5BtVYPmgkgdlbyr xDR7XTIgSNTcuO97Yi0z rGhnTb6sZBNkEJC4QNMr mUVyZ1HvxA3iXdXi JESsDRScN1SzcPAnEWey T167TPzpDvT3TDBhuiXd T8IhODZsmWtvWgF6d9M9 Pe3OOc70YQ71PQ00 iNQoj2B1kGI3A3CcNGOa cvebkojsfAE7SZVqPSVi zP11Pb5jpTtgXi5yFJCk SEC1UYDpdDEeU4Ut iU3pJpAuQZZbWDXgO3Tk hCWsUCqeE828UPwdImK4 ZTQoqeQiF9AaYQWytXmr TmC3d8I9Ux7DXAdi dpk1Y4GpDqcatXA+PC90 BYHrWT44iHRteUDez7dx zWo3IzIeIXUgRTC6wKea XIltz1TxVLUnH16h bGF (more content not included)... [facility] Coding Summary HTMLBase 64 PsoshkeoQUt3oEm+PGhl YWQ+NA0YANUpW87yhFRw cA1hE0SUFVnAQzmoYNCC OYvDIdXrbsQjLL2tiMVx ZXJu IC8+FY3wZWMsSzlfbUDt e6Z3bTV3F58kin2eHKeb nEB0JLHyCtCshasmb6pz bTm2KUeiEpjdMpCn ZUMqmQ49QMS2rD46At91 qOFvvQYfp8nfcVl2TqEs WHPxYDG6aLvaCXruy8Hk LXFcO31dyWFmv0L8 IGNvbGxhcHNlOyBlbXB0 wM3iZEjwlqnbb7cvdtpi Yyc6zp40aTMzv2T4yXB7 E1XporY8AHGoyENe AmiwkBCPiS8yteejb7fp maxgOyIgWMBbPLi0AXz6 EHAhdAqdTwAfAV79HXO0 QLIpqrGpK3PpDNEd tPfaYhU3v2H8Mz9QI8GE PsibE3GGNRSIBXfcfCU+ IU54ac42Z4DrAezpQaf5 WVJjRTL5vGL6cW5i TWNmIVqcn0N1pYQ6I2Pp drXkrk3ii4vrHTMoOBeo M59xnQOfn3S9METzcRX5 ZIYaxEbdRgHzqJ52 Oyc+GRWasGaza0AnHmuj o2dsy4sqlFs9DmvhLFTz pwJlhCevCXO9o5ZlMz2q VSAtcVY3uAK3bA3j SjWyVcF4FYmvD543EqBl hZYyJyzzH26kW7AeeEQ+ IFYaKfo3RGSakRgxVF4b Z4JtMPOekgjanNIg jEwmEF3zARHjjbewNSZs oQ2vXJZqH2y2IhOlQjX8 NLcfB8NjACCylpzsJz98 bM5ySfDcTrY6XTri B6VhfpY1UUTeeXHmNYwv ISE4T78yo6E8GVSjUSCl APP1mVE2aL3taQbnaqqd bGVmdDsgdmVydGlj QHfnPIzgV331FPNzvXbz PkNvZGluZyBEYXRlOiAg MDEvMzEvMjAyNDwvdGQ+ XOOhZGJ4gCcvVWGk uQQlIDawZr7lhJkdtHtk LH6rTWXtnusyPFUgqU9e OGMjvIGvaBbyJK8tPKRc gyqut486MeErBGS8 TPBuoZAyQ1TxrH9qOuAb DDWkXKVuY2UvxLRyVDaz R209MThzXiV2YQTtvzMw X6WwYHEdiOrqXhK5 z7X3Ot6Hx5RnsbceG0Jc vQCcRjTqTuwdINp5C7Pt PjwvdHI+UR74OWHhYN95 LKt2MBG1wHonZKey XJNiY4TulT0lIpCuTUBx ZGRkOyc+PHRhYmxlIHdp ZHRoPScxMDAlJyBzdHls YE7yLb7lIGMgRDXq lXpwuRHyHlOmm1fyEQAm OTfeHR6jjUogR3AdzEI2 UKMzt6v1Mv25E51iG6Ml dXA+IOUnxEQ2kBE6 mV4dUxBnAwW6ZTtkF877 XfPwvOMjEygba8rwt2gh mZx4NlH5WTYzciHepTbs KBY5p5JcHq55I58c IHdpZHRoPSIxNSUiIHZh oBzeio7ifB6aYc6+PGNv hLS5nFP3iM7jSyMsAmH7 AGakD903HfVbhUUk Kxhil5ddn4ckyIb6WpAx MDVhhsHgpJpcSBB8p2Nj Cl24P9AwaVluu0GmEux6 id64yIPqo4V5bOU3 X8BgOHPbvwohwTBwhHlr GJ5tRASowxmzNBFlyH2t WORjP2i7IxVqKcT4PQsp Q2GyajT6KETxuXSo WXLesYETgH3jizmjj2qs htorSoSbRGWkKDj4SQg3 CTFkjBfeZtEdLFX1DnT9 UAN1cFGgzF9piKuq atyglT8lMee+OTJ9kIKg tBLKRN6bDigagPU+PHRk YFQ7wLotXNxmCIEqjA4o YVKnU3t2ZuQoXiS2 NCyuD5HuzyP2UFYofKZv GNLukMTHwS6wttxos2uq tbtpOvRmUUBoOEp1GYp1 LWFsaWduOiBsZWZ0 MyK0VRY0lBLhoL4cjAmr vqhdcJ1ySyc+QmlydGgg WPG0CRn1G3HmOqg0PPWi mLyoKU1hpVUdUDkh Te3dhWvlhExwRW6qNZXy vxwed711KrUmt6hyZITv iKDjPTmrYFC2H83ku6Y4 CVMfXXTbJJK3xNI3 aM7yxMvrociceGAduTyx poQeuWgfOKkbVUcaV554 DBCfiVvkZkTjABu7O0Na Bnm6ILGabEtnEV3d qIDvEMozVq0juElanGlb CO9eFWYrzijmk100UyGz s6rmDCFuaXZaIRdfCKI5 X76sh5W8UBLeRAOf JEB1lOC5jE6mbXxqqqpo bGVmdDsgdmVydGljYWwt CHpvQ972VNAelUonRlFp sRf5X4OiGsi3GBMq bAwwJG2wvZMuECmpJx5p oYdpbOcnBF9lUBCwpokr r029WvFgj9erGNShaDEn RAojCYN3O79dd8Q1 VJAqORMsBQL8eRY3aF3m bGlnbjogbGVmdDsgdmVy iFzoMNfvBCdhY132HGIg cDsnPlBhdGllbnQg FLcqTAc7H1QjImnytMY+ TE88DVJzSE99aBEdjHAv i1imoPr1KdVkQBNyHYQ9 zOhoQXnxw6YpFINv Q99vxRMbk5C1UDKroFft mFJzToVyeHO4kD4eAFwt prwcn6svpdpdXvyye3vh pq61oQ01Q56kPEgc ZHRoPSIzMCUiIHZhbGln uh6dxB7tRf5+PGNvbCB3 cRZ0iP4eWQWxYqX3EMhi P524BsOdsOBuNsyr h8sxd4sogLj2SoK8DEXk isGyeUjpMDI8i3GqPb63 T00iMTlgTWMlEIJvNUYw NMTghUfdbg2doM1d Ii8+DBZabZL4fJK5vW5l BdGcGbR6GPxeY745ZiYs qXIwHqupS97gU1OziVB+ WXTeWtt1MLDouXsh GK1xeYPlJYohTw2tXWX8 JaMmDpJgCTwxA5GxONCp auiadefbeVD0DJXgDDCc bO11Ml8jwNxrDWIy yVGMiD6mngsmk8xormmq FvXlWXKiGTj8IXl3WXAz fNybUvIwANF0EbE4HDG0 mDXusK8rdHhvbcss vT9wT2KvRJNhvhumOv50 kQ2tGhKxXtD6FWpvHix+ BbPFKMIhWVWALs3KCDRG RTwvdGQ+PHRkIHN0 mMkoHZqjOCIlwC7bGCQz E0r1TwJrBkW0QWkhS4Cj DDRngiakIw11sB6wPoYq HnV2PAnmG3IjopT2 FXNhyBOaVTkkRQE3A63p e6L0SJJiGWFiNXD3yKF1 eN2kwFybfmskcGCbdKsb dmVydGljYWwtYWxp L954NRFrnRtmZoJeSgUw NiM5PmR0O1FqOnv7CWTy fIogCO5fqMEdTJzeBc9q bDpsgNfaSK3rJEEx hkwjTTIcfG0cLBAblLYe iAmqNC6bYMKenxzrf895 JnApTUG2AQBwhGJyE3Sm lY5uSbRzIPHrGAOo K4ZemDBmLMsfN586EEnx NlM4JQMwqlHwE7YjKLTm kVoaNuV9d0U1Zk75OSZT ZWFyczwvdGQ+PHRk OGW6yRzdNQkaDPFbpN2m JKMqC0r1NgIaVqG9EQyc Z3GoYMNyupshGw65cB9h XyKcFqA5XYybR8Uy jrR5GJTrjZOjGLzhETT1 W06gj8S5PPCyWPOlOOU5 gYA7eS7puWrfxifanEHb dDsgdmVydGljYWwt RFpvI279EXBlaXcqTbOD TUFMRTwvdGQ+PHRkIHN0 ySrwMVprTHIipP7nISJb I0o5HkIlWhJ0NNet B1LfCMJkpdpwVh95wI2j AxCnRiU8LRpiN7PgmpX3 MMLjiETjYZbpMKO9O31q l3G7PPVrPVYrNDH4 mKA4gX0cfTtszqnrvPYv dDsgdmVydGljYWwtYWxp T868IVZfzTvvLoQtSRIm OF3rlPrfjER+PC90 yu35A3PjPmfoCpv3AOCp JDJ3pSI6wT7aISIuFLri a7T8bHX3W5OwdnBkai2v u0xvVOZgQAoiG33c oOEhm1L8EPFvoSJ3PZSv kAliMvRcjH65Xjd+PGNv oSlib5BhLcmcg5jwx5nj rBu0IdQtTBStxpRn nYfeXTM8g7OwJq46B37v IHdpZHRoPSIzMCUiIHZh iCtnsf6ufE7rNo5+PGNv fVW1lFI3rA8fEyXv VeJ5GNzdV364LoUyhXJy Rqunz2wep3fqdRy0GmWb JIPoiwPynNexOSW9l8Ku Ig10P5CevJjyh8Xe Tqe6xy27jSUim8A1vSS5 L0FvTJPclxvyxHSerKtu BX2pTZOgtlqrIKZwyA7b AQSfV9y2GgLmMjC9 RZchO3ZxbjD0NLPjlZKd BBSjfOZFmK9ngwnyg7ws imtfUqBxYBTwAXh9ESq2 LWFsaWduOiBsZWZ0 UgH4VVU2qAVvdV3lxVjt afschN2mPgh+NIl0n4wl bWEgDM3dfNY9EF52JQ97 kVTtf2C0pWX3P4Om DYSchszcspcauYB8ELXp OGEsvF56Nr9etGatXm2b VICuXGF9WHPzeZPeX7Rw kW3iAlDuGAOmVNBs J4WveVZqUBpoM127AMmm MuK0TMIksaAhY4VfJRKl hRbcDdD8w4M9Oh4NJJ91 PK15YV47lBRsz6K9 rAH2Y7JyCYDokbwhmydn jBV3ABZmNFLbfC99Fn9c cTunBu3mBXGlCEA8RJTd cFAvX3CjrZ5rMpPn SHPkLZXkU4GxlHBySBth C513EDivFcW6YJNssvJt N2YgWHHnlDynRtO3y2E1 Ag6LAg96JM35JI29 zVSyi7K6sFO0O9ObUOWf wxyueieaqWY2XWIpDXMo lZ29Tr0vxWbpKf2qFTMz YAO7LRApfXLlK5Yd kT9gZlUhFJCwYOTcB0Ot nVSvNObxF935KDufEkZ9 OHBocwFgT8OzWDZpyNhq NdV0o6I0Uq3NCDnt oea2B4JfItpheAS+PC90 XHGcID90fIIoyHEtg7qc rZo4ElRsAGWrHDF2mAxd GWygj2NxGRPmW78a bGF (more content not included)... [facility] Coding Summaryon 12-01-2023 Coding Summary HTMLBase 64 SvmzzruuUUg6vZw+PGhl YWQ+AF7CZLZkD47ckMHq sQ7tV4ZPTOyEJsthKHZF CZpUHyAzpuOpBW9aoQBy ZXJu IC8+LN4rPICtAvezqCOh m5Q5vSV1O78gvt3gXYwc qRM3JNRsJzGjfxswb3da fOt8YCpsAwyyAyFw ILIzwJ54BGD5uL32Mf61 lMLiqMHtf4zabQs6RcTe FPXmWFG1lVsnOQqrw1Kp LETbJ61qpPAcr4O1 IGNvbGxhcHNlOyBlbXB0 iS0xKNrjqreaq9ngurvx Ynn9lv32sHLcd9U4pXX2 D0SpwzB3TSIvpCAu MzdruOBVaZ0fdfgjt6ft zbqnGkUsBXMzELm1GFk2 ZDJhiLpnTtOvHT64JJA5 DEHaboRqG0RtRARx aFbwZgN6a7X8Sx5ZR8KS SbnwW0RUQMMQTDpspCO+ TO88yh80Z9ZdFwrrSwt3 QLMkNDB0kRK9oC0m AWSmBGalp3K7xZN5V6Sb elOwrf4ho9wkQOVsSUde C11tnTYyh6S4GLSueZS6 TTLrfFmqOeAikW94 Oyc+BJYtsFymp9XxAnfg c3esc9sqsTb6ZpmzKTGs awYruPylBZN3y3KjOc6s MDPyhJX1eHX2yO3y CmMiKoB5QXluN572MbAr pVUoIhhvH19gI3DgaXZ+ UNOcWqd6ZKDgyWhpKC9l K3JdTFXzfntfuMQh nEruMX3oGCQdpwiqRIDl pT5xPBDdJ5y5QoTlOaH9 HAreL1QxXWEsjhwfDo71 uK8wRqRfXcN5MQye H0SaoiY6NJUhxPDlRPgh KNE5I92hz6F5BYGrBMOc RER2tXK1uO5dyMqwhgel bGVmdDsgdmVydGlj TLbmKVvnH577QDZpgZtc PkNvZGluZyBEYXRlOiAg MDEvMjkvMjAyNDwvdGQ+ LIJyJFJ5cLcdYWFx gFFqNLstZe1apMsmsNmz ZY1sVMJtiuusOXKfkW2y ESGbdEZifBuiPU6fBUXa grkds196HdKrBOB1 PFIprSDzE7DnbJ8zGfAk HRYaBKUtD3JjxCJkBXdf G315BAihWgD0SDAwvyEy N8DxESXskIftVrJ0 b5J3Mb0Mj4AdfrmzO1Xz cUPyLrNuKcusHGf0V5Co PjwvdHI+HO37ZKDpYM92 QKo2KDN1xPlcRQmu JPKuT7ConQ0bOhPxTWWd ZGRkOyc+PHRhYmxlIHdp ZHRoPScxMDAlJyBzdHls RT9nGy2oBOKkNBFh qIxmpDGhGcEhl9jnETSj KDnvGD4uaLraB2CxoFE8 OKXgc2a8Hv63U07hG1Ek dXA+UWSvkEO5eVL2 jT4uCyHgPyS1XOecF249 EdXwoQKkFmryp6mmq5bd hIf3GvJ1IGSeqmXgaZuy WPM3l5QmDb98P29l IHdpZHRoPSIxNSUiIHZh bYdaic6vnX7lJa3+PGNv hVZ1fKH3sT7nIqZtPmM3 PMztC502MhIsuOLt Phljr5yfc3fztTb8DrOp BLMyqgLbpWnmRLW2t4Py Kv69Y1ZzmFlww6JyWyk8 oy66uHDrg3S8iDM4 E8BsBGTvqazkwNHizOdc FT9yTKMrprwnMSWwzY1k JDTjG5z2NpTxLnA5SIfr O5MzsqS4OFKaeGUm WNJdwJDDpD9zhdlrl4xd upwdNjFtKQEkZSa3IFk2 OSLjoLcyFmLeVSE2TkC9 VPQ2mKDtrG1jhNrd rjgsqJ3aPfq+TJZ7dUIe eFMTAT2cPpdipVD+PHRk HVV8vJmbQXwmCUBgjJ1o RPTaY6p6KdKfVbF3 HSylW0HyobH2HRKsuPRi HSSjoJBEiC3yplpbr7pi uxwuBlPbLCWoNFd9ILs1 LWFsaWduOiBsZWZ0 FoG3SER5gEJeuO8xbKjn okfozE4jGky+QmlydGgg WBE6AYx3Z3ToBzi1LOTs uEkcES6vnDEwULvd Pn8drNuupHrkII6xCUJv sfrgy922DlAlc9vuGFCt yXQnBWzbHDS8T11kz5H1 TKBxKRPjANS5sSI6 uB3bxQrobtruqOUfhIkf vwUgnFndGGrdPRsgN484 JOXlsIqkOfJbLRz7M5Mw Son2DETtcFvtLX5p iWGpWYzuLz5moWluzRxc CF2vZZTvwwgay025WfSq s5jzPUToxNPrQIjdDQO1 C40ve9N9PZHwVIVd WWS9rSX9eC2wtQmkgpdc bGVmdDsgdmVydGljYWwt BGsuT785UEJsaKngRqNg vBu1E4JoKry2WBNe xHqeJQ7umKXmOPqxUq9j nOgrsGigRF5xGTWtrdoi y790XhHty9xnRPAlcHZu IBauRQN5N15bz6V0 CKChWQEdEXS0aWW8sN6w bGlnbjogbGVmdDsgdmVy aXmyCVjzRSvyV466LVXi cDsnPlBhdGllbnQg IItcBTt2H6NmTsnaxRJ+ RT74ULUaAN59bQIuyWKy w3vbeXa2UzBpVVZyHEO9 pThzMWjqy6VdNKYf L50xkCSsz8X0WFIhiTot qHGuUnCkzRK2iQ9mWEmd vwxvc0mberjbHslae7oy ok82cL77L40fGHst ZHRoPSIzMCUiIHZhbGln dj0rpS4sGm8+PGNvbCB3 uLW3pP1oOXKkRpF8AAsz I100YpPtcUBxQsyr q6qdm0thaNw8DpF6TFFt nqEvyLudREE6y4GvKq29 Y58zXOybXHDcFUTaPDDk ZRNdkUvcka9tvQ5z Ii8+MFMjgSU3eUA1gN7u BqIoRqL1GUqyF201PiHa wLIgJzswW56qN0EqyJW+ TZUnUiy7DUZcbHqt TH2ebEYaIEjiMt3pOXQ0 UdWyYwGdUGjgH3IjBHWr spajimwprLW6SVVjRKYo cE98Np9rcPgnXOKe aPCLtN4utdvns3dhgykk EfAvDIOiCRc3MJz6FFPv mMruBeSuXNB4QzD9GHU0 jQOnxT9ncHqnrnuk wI3cE9AkEBBvilqcZa29 sH9kDaMnZfK4CQdrEhk+ PeYRYQYbEVECEy2ZOGCE RTwvdGQ+PHRkIHN0 jCzpKTrhHLVqbN3zXSYj F9a6RhXfYsL8MVdbZ8Ap QCCtcyzzZg23qB0pVnNr YuI8MGtcC7WgctX3 SCXvdDBfOZkfUBF6U46q e0Z7UBSnPJGwWIS9sXV8 uQ8jvZevktnboHQotQqx dmVydGljYWwtYWxp B177WEOrtBsrUbFdVjBr NiI2FbF9U4NjIth4VRWc nVgsUZ9hyPYbEPphCt4e gSoptEfeEE6tLDOl dwjwSUOrcV8lFBOnnYNw mRcwED9oEBOzlxjhd431 CpLnBRD7JASbcIFhO1Bc vH9rZkIvONJoOEFc I2OhqTDqOFxdI995TIqv PcE2VEGbkuVdY2CqYRTm qPvvCpO4c7R6Ma86CWCX ZWFyczwvdGQ+PHRk WZG4lVagSKkyDDEmlU5j PCKvV9p9VqQoYvQ9SObg H7IqGFDsqossSa25jH1g VyDjTaF7OEdqR1Vv qtU7GFIycNHhQKtzWWU9 S74hq7P6DJPmDGGmCGE0 kWD4vP9tyRtfipxlqELn dDsgdmVydGljYWwt PAjiV528WSWsqEriKlKS TUFMRTwvdGQ+PHRkIHN0 zTxdUJtaAAYpyM3nCFGu F6b2UvXfXlJ4QNdj A0MpWDZqekacBd14yC5c QqFnVfL3GDwwV5LnotA0 DXDzrUHdTUipUPX2U00k j9N4CJNzNHHwYBU7 lXM6zJ0asJcjnrhgoHIx dDsgdmVydGljYWwtYWxp R753OIGmyYrwBeQwLLQp NZ6kuCipxFE+PC90 ma62X6PnPvozNfl3QGKh NIA6kJF9nJ9mDPIjSUtq y8E9kQA3F4YftsTlnl7a j1asAVVtYZklE47t dGTva9V3TUNceFR7DCJy jIdzLjKchD50Ztt+PGNv dYoqp9RmMhugd6ahf7vf uPb5FnPrEOMrcdEq fAwiCNT3f0VzDd33M80j IHdpZHRoPSIzMCUiIHZh oPfjwt6ttY4xXi9+PGNv vKN1bXV8cA8oYpLt UdZ8LYsjV893XcNtqESv Uetnd6hjq0couGv2GiMe HTVujpChjNdqMNT5r9Ra Pn61X2NokAhps5Sp Ixo6qg31zOUcd4W9pOL2 E6QhLQGdprmykBXauOzp AD0zPWFufywbUZKapM5x JLPdX4j2TeNhWeO1 HEomH6ArftI8HEOsoNOd GFIxvTRRmX6hbokix7ng eofvGmJuRLJpDTh9SKx6 LWFsaWduOiBsZWZ0 GkN7KHU2rRImoK1ssRir pccbtY1aBjw+WJm0p8yr uDYtFO7lnJE6HF13CU81 fARxz4S3uQP8U6Re OQLaahixugpelWW6DDZf HZVusZ81Px2drWwyYz1l EBHmMGU5NJBmvJCmS0At xY8eXhBvKARmFNMh P8AseJRiMIabL825ECmo LiX4QDSbtgKiN2ZdXBGd dOeqVqM2o4H3Lc0YJJ44 XW34EZ58dSPkv5E3 qDD8H5NeVDSjoawsdfsj gLD3BLDhVQFnvT21Xh5d sJcuVu1lNLRcFJU5ZXHh mGNzA7BbsX5rWeWs JXMnTWRxV9JxqEYxAIke F609UGcpUeB2IPOmopYb X9FnVJNotZoqBgO6q1H4 Vu1GCs56JD61XF73 eMFoh5F2lJF0E7VoFPKu xqalynqmsRG1NPGnZAKt tV35Xf8yuFrrHh7iMLIb RFF1IAGqzVMeS1Rj lA9hMnBxKGElEOSpQ3Yw kVJvVDkdP202INhnEnY5 YHXaleHvW9MgJYUxtNym VvL4t9G0Wk1TNVji ron9Q8ZfJjfrdJO+PC90 RQUpUY18mETjiTYcc7ul rQa3IzIjKMFqCSZ3nNlc ZYzgm3YmVNYlR53b bG (more content not included)... [facility] ED Clinical Summaryon 2023 ED Clinical Summary [facility] - Emergency Department [address] [place], [place] [id number] ED Clinical Summary PERSON INFORMATION Name: TOOTIE NICOLE Age: 47 Years Sex: FEMALE : 1975 MRN: Acct#: Visit Reason: Headache; MIGRAINE Arrival: 11/18/2023 21:15:56 Discharge: 11/18/2023 23:15:00 LOS: 000 02:00 Check In: 11/18/2023 21:15:56 Checkout:11/18/2023 23:15:00 Address: [address] [place] [id number] PCP: Romeo Chaidez DO PROVIDER INFORMATION Provider Role Assigned Unassigned Patricia Cross RN ED Nurse 11/18/2023 21:27:54 Jeff Ingram MD ED Provider 11/18/2023 21:30:32 VITALS INFORMATION Vital Sign Triage Latest Temperature Tympanic Temperature Temporal Artery Pulse Rate 72 bpm 72 bpm O2 Sat 100 % 100 % Respiratory Rate 18 br/min 18 br/min Blood Pressure /91 mmHg /91 mmHg MEDICAL INFORMATION Medications Given: Medication Dose Route ketorolac 30 mg IV Push dexAMETHasone 4 mg IV Push diphenhydrAMINE (Benadryl) 50 mg IV Push magnesium sulfate 2 gm IV Piggyback prochlorperazine 10 mg IV Push lidocaine (Lidocaine 1% injectable solution) 20 mL Intradermal cyclobenzaprine 10 mg Oral Allergy Information: traMADol; Latex Allergy; Adhesive Bandage; Phenergan; Imitrex; penicillin PHYSICIAN DOCUMENTATION DISCHARGE INFORMATION: Discharge Disposition: Home Discharge Location: Home PATIENT EDUCATION INFORMATION Instructions: Migraine Headache Follow-Up: With: Address: When: Return to Emergency Department Within As needed Comments: Return to the emergency department if you have worsening headache syndrome, nausea, vomiting, changes in your normal mentation, new numbness or tingling or loss of ability to speak, bowel or bladder incontinence. DIAGNOSIS: 1:Migraine syndrome Patient Understands: Yes - Patient/family/careg iver verbalizes understanding of instructions given Comment: [facility] ED Note-Nursingon 11-18-2023 ED Note-Nursing Mag infused. IV dc'd Site clear and cathlon intact. Pressure dressing applied. Pt states that her headache is better but is still having problems with her restless legs. pt has to stand and move around while getting discharge instructions. Pt told to follow up with her neurologist or to return if any problem s -05 [facility] ED Note-Nursing Saline lock started in the lt hand. Pt medicated with Toradol, Benadryl, Decadron and Compazine (compazine mixed with NS and pushed very slowly) IVP then would have Magnesium IVPB. Room remains dark and present. massages neck more -05 [facility] ED Note-Nursing Dr Ingram in to inject pt's neck with Lidocaine 1% -05 [facility] ED Note-Nursing Pt arrives with complaints of migraine headache that started about 4 days ago. Pt states that her pain is in the rt side of her head and goes down her neck. Pt state that she has tried her meds at home with last doses last pm but did not even try today because it is not working. Pt states that her neurologist has done botox injections and recently did but has not helped. Pt states that she is nauseated/dry heaves, not vomiting. positive photophobia -05 [facility] ED Patient Summaryon 024 ED Patient Summary [facility] - Emergency Department [address] [place], [place] [id number] PATIENT DISCHARGE INSTRUCTIONS Patient Information Name: TOOTIE NICOLE Age: 47 Years Date of : 1975 [facility]: [id number] Reason For Visit: Headache; MIGRAINE Arrival Time: 11/18/2023 21:15:56 Primary Care Physician: Romeo Chaidez DO Attending Physician: Jeff Ingram MD Comment: Visit Diagnosis: Diagnoses This Visit Headache ([id number]) Migraine syndrome (G43.909) The Pharmacy at [facility] is open Friday through Friday from 9A to 6P and Friday and Friday from 9A to 5P Prescription Information: If you have been given a prescription for narcotics, seek immediate medical attention if you have any difficulty breathing or any sudden status changes such as confusion and sleepiness. If you or anyone you know is experiencing suicidal thoughts, mental health, alcohol and/or drug addiction problems; contact the [facility] 26/05 Crisis Hotline -Text 4HAWM rv 198786. If you received any narcotics, sedation, or any other medication that causes drowsiness for the next 24 hours, unless otherwise directed: ? Do not drive a car. ? Do not operate machinery such as power tools, lawn mowers, drills, sewing machines, or stoves ? Avoid alcoholic beverages and drugs for allergies, nerves, or sleep ? Do not make important personal or business decisions or sign any legal documents With: Address: When: Return to Emergency Department Within As needed Comments: Return to the emergency department if you have worsening headache syndrome, nausea, vomiting, changes in your normal mentation, new numbness or tingling or loss of ability to speak, bowel or bladder incontinence. Medication Information: The exam and treatment you received today in the [facility] Emergency Department were for an urgent problem and are not intended as complete care. It is important for you to follow up with a doctor, nurse practitioner, or physician?s stores assistant for ongoing care. If your symptoms become worse or you do not improve as expected and you are unable to reach your usual health care provider, you should return to the Emergency Department, we are available 24 hours a day. For those patients who have received Radiology results, the interpretation of your X-ray as given to you by our Emergency Department physician is only a preliminary report. The Radiologist will review your films and if there is a change in the diagnosis you will be notified by phone. Please make sure you have provided a working phone number so we can reach you if necessary. In the event that you had a lab culture while you were a patient in the Emergency Department, you will be notified by phone if there is a need to change your antibiotic. Please make sure you have provided a working phone number so we can reach you if necessary. [facility] Emergency Department has provided you with a complete list of medications post discharge. Please inform your customs patrol officer/provider of your visit and for further instruction on these medications. Any specific questions regarding your chronic medications and dosages should be discussed with your primary care physician(s) and/or pharmacist. Additional medications on your home medication list not specifically addressed. Please contact the ordering physician if you have questions about these medications. amphetamine-dextroam phetamine (Adderall) 20 Milligram every day. estradiol (estradiol 0.05 mg/24 hours weekly transdermal film, extended release) 1 patch(es). FLUoxetine (PROzac 20 mg oral capsule) 1 cap(s) every day. ibuprofen (ibuprofen 800 mg oral tablet) 1 tab(s) Oral (given by mouth) 3 times a day (scheduled) as needed as needed for pain. ketorolac (Toradol) 30 Milligram every 6 hours (scheduled) as needed as needed for pain. onabotulinumtoxinA (Botox 100 units injection) 1.25 unit(s) Intramuscular every 3 months. ondansetron (ondansetron 4 mg oral tablet) 1 tab(s) Oral (given by mouth) every 6 hours. take 1 tablet by mouth every 6 hours if needed for nausea. Refills: 0. pramipexole (pramipexole 0.5 mg oral tablet) 1 tab(s) Oral (given by mouth) 3 times a day (scheduled). tiZANidine (tiZANidine 4 mg oral tablet) take 1/2 to 1 tablet by mouth three times a day. Visit Information Allergies: Substance Reaction Symptoms Type Comments Imitrex Drug penicillin Drug Phenergan Drug traMADol Secure, adhesive tape Drug Latex Allergy Environment Adhesive Bandage Other Vital Signs: Vitals and Measurements this Visit (last charted value for your 11/18/2023 visit) Vital Signs This Visit Temperature Oral: 36.6 DegC Peripheral Pulse Rate: 72 bpm Respiratory Rate: 18 br/min Systolic Blood Pressure: 119 mmHg Diastolic Blood Pressure: 68 mmHg SpO2: 100 % Oxygen Therapy: Room air Measurements This Visit Height/Length Estimated: 162.56 cm (more content not included)... Normal [facility] Consultation Noteon 11-04-19 Consultation Note [id number] #1.00TIFF Normal [facility] Auto Diffon 10-01-2023 Basophils/100 WBC (Bld) 1.2 % Normal 0.0-2.0 [facility] Comment on above: Order Comment: Order Added by Discern Expert. Performed By: #### 1 [id number], 3468092, 9947842, 0119917, 760468780, 9697410, 0491382, 9898462, 1264552 ####[facility] [address] [place] [address] Basophils/Leukocytes Auto (Bld) [Pure # fraction] 0.1 E9/L Normal 0.0-0.2 [facility] Comment on above: Order Comment: Order Added by Discern Expert. Performed By: #### 1 [id number], 1853844, 8037615, 6619749, 104915889, 1301160, 6490428, 9775392, 2234580 ####[facility] [address] [place] [address] Eosinophils/100 WBC (Bld) 3.9 % Normal 0.0-8.0 [facility] Comment on above: Order Comment: Order Added by Discern Expert. Performed By: #### 1 1176305, 0128844, 0163453, 8867310, 233455827, 8610693, 8738235, 5947033, 3480858 ####[facility] [address] [place] [address] Eosinophils/Leukocyte s Auto (Bld) [Pure # fraction] 0.4 E9/L Normal 0.0-0.5 [facility] Comment on above: Order Comment: Order Added by Discern Expert. Performed By: #### 1 8459141, 9990050, 7099640, 2275146, 249236997, 6808962, 4176277, 6722366, 1148216 ####[place] [place] [place] [address] Lymphocytes/100 WBC (Bld) 30.8 % Normal 14.0-50.0 [facility] Comment on above: Order Comment: Order Added by Discern Expert. Performed By: #### 1 7590142, 1851228, 7868594, 0419548, 984392042, 1766257, 9591511, 8076587, 4282311 ####[address] [place] [address] Lymphocytes/Leukocyte s Auto (Bld) [Pure # fraction] 3.0 E9/L Normal 1.0-4.0 [facility] Comment on above: Order Comment: Order Added by Discern Expert. Performed By: #### 1 3222926, 0778501, 2209045, 4692984, 954501538, 5418093, 5245049, 0051130, 4959489 ####[address] [place] [address] Monocytes/100 WBC (Bld) 5.8 % Normal 4.0-14.0 [facility] Comment on above: Order Comment: Order Added by Discern Expert. Performed By: #### 1 4048181, 9091338, 5565503, 1110627, 870398127, 9319500, 9422235, 1097742, 8767430 ####[address] [place] [address] Monocytes/Leukocytes Auto (Bld) [Pure # fraction] 0.6 E9/L Normal 0.2-1.0 [facility] Comment on above: Order Comment: Order Added by Discern Expert. Performed By: #### 1 7302045, 9204362, 6533525, 4333914, 779777322, 4256619, 4550252, 4164930, 3228658 ####[address] [place] [address] Neutrophils/100 WBC (Bld) 58.3 % Normal 36.0-75.0 [facility] Comment on above: Order Comment: Order Added by Discern Expert. Performed By: #### 1 5959647, 5755246, 9549894, 0788745, 616204796, 7394940, 0050165, 9768913, 7696692 ####[facility] [address] [place] [address] Neutrophils/Leukocyte s Auto (Bld) [Pure # fraction] 5.6 E9/L Normal 2.0-7.5 [facility] Comment on above: Order Comment: Order Added by Discern Expert. Performed By: #### 1 7093851, 7367687, 9023308, 2181216, 928456919, 3746973, 6251498, 9659853, 8239026 ####[address] [place] [address] CBC w/ Auto Diffon Erythrocyte distribution width (RBC) [Ratio] 13.4 % Normal 10.9-14.2 [facility] Comment on above: Performed By: #### 1 5713350, 8108823, 1509341, 4328517, 068899106, 9071822, 4694192, 7249796, 7633100 ####[facility] [address] [place] [address] Hematocrit (Bld) [Volume fraction] 39.8 % Normal 34.0-46.0 [facility] Comment on above: Performed By: #### 1 7873649, 9055024, 2956157, 6549552, 747318194, 5285621, 0586550, 5667539, 2552023 ####[facility] [address] [place] [address] Hemoglobin (Bld) [Mass/Vol] 13.7 g/dL Normal 12.0-16.0 [facility] Comment on above: Performed By: #### 1 1752454, 8757533, 8624182, 8113966, 896596508, 4148032, 2438969, 5731931, 6235478 ####[facility] [address] [place] [address] MCH (RBC) [Entitic mass] 29.8 pg Normal 27.0-34.0 [facility] Comment on above: Performed By: #### 1 8246669, 6110207, 9465202, 2922387, 739244452, 8498076, 0777817, 8133025, 0428090 ####[facility] [address] [place] [address] MCHC (RBC) [Mass/Vol] 34.3 g/dL Normal 31.4-36.0 [facility] Comment on above: Performed By: #### 1 7834555, 7561832, 9352421, 8301810, 089970395, 1345662, 4020974, 0391407, 1073057 ####[place] [address] [place] [address] MCV (RBC) [Entitic vol] 86.8 fL Normal 80.0-100.0 [facility] Comment on above: Performed By: #### 1 4791325, 0776111, 7576463, 6126413, 525266880, 5041468, 9570037, 7853424, 7847639 ####[facility] [address] [place] [address] Platelet mean volume (Bld) [Entitic vol] 7.7 fL Normal 6.4-10.8 [facility] Comment on above: Performed By: #### 1 0987856, 4447414, 7194328, 0543715, 125316900, 1851672, 9811776, 5693430, 1163573 ####[facility] [address] [place] [address] Platelets (Bld) [#/Vol] 418.0 E9/L Normal 150.0-500.0 [facility] Comment on above: Performed By: #### 1 5629532, 0377877, 6257660, 2901872, 852545822, 8098610, 3489810, 6661520, 1955739 ####[facility] [address] [place] [address] RBC (Bld) [#/Vol] 4.6 E12/L Normal 4.3-5.9 [facility] Comment on above: Performed By: #### 1 6838748, 3190657, 3279780, 3633579, 480191530, 2806256, 9431516, 7140953, 3858907 ####[facility] [address] [place] [address] WBC corrected for nucl RBC Auto (Bld) [#/Vol] 9.6 E9/L Normal 4.0-11.0 [facility] Comment on above: Performed By: #### 1 2334915, 3757356, 8464496, 7335311, 955128560, 2739415, 9341136, 6901992, 7133782 ####[facility] [address] [place] [address] CHEMISTRYOrdered By: DataProm SYSTEM on 10-01-2023 Cobalamin (Vitamin B12) [Mass/Vol] 369 pg/mL Normal 50 - 1500 pg/mL [facility] Remisol Ferritin [Mass/Vol] 43 ng/mL Normal 11 - 307 ng/mL [facility] Remisol Comment on above: Interpretive Data: N ORMALS MEN <30 YRS 16-132 ng/mL MEN >30 YRS 8-338 ng/mL WOMEN (PREMEN) 6-104 ng/mL WOMEN (POSTMEN) 12-210 ng/mL Folate [Mass/Vol] 8.5 ng/mL Normal >=6.7ng/mL [facility] Re misol Iron [Mass/Vol] 75 ug/dL Normal 35 - 153 mcg/dL [facility] Remisol Transferrin [Mass/Vol] 310 mg/dL Normal 200 - 370 mg/dL [facility] Remisol TSH Qn 0.96 m[IU]/L Normal 0.34 - 5.60 mcIU/mL [facility] Remisol CHEMISTRYOrdered By: Rani Nolasco on 10-01-2023 HbA1c (Bld) [Mass fraction] 5.6 % Normal <=5.9% [facility] ChemAutoSS Consent for Treatmenton 09-04 Consent for Treatment [id number] #1.00TIFF Normal [facility] Ferritinon 10-01-2023 Ferritin [Mass/Vol] 43 ng/mL Normal 11-307 [facility] Comment on above: Result Comment: NORM ALS MEN <30 YRS 16-132 ng/mL MEN >30 YRS 8-338 ng/mL WOMEN (PREMEN) 6-104 ng/mL WOMEN (POSTMEN) 12-210 ng/mL Performed By: #### 1 6362216, 2170937, 7165168, 6506518, 191822885, 9328742, 6579004, 7925814, 5619891 ####[facility] [address] [place] [address] Folateon 10-01-2023 Folate [Mass/Vol] 8.5 ng/mL Normal >=6.7 [facility] Comment on above: Performed By: #### 1 9611252, 2707741, 5147418, 2466674, 251267269, 6801563, 9873947, 6638297, 0190048 ####[facility] [address] [place] [address] HEMATOLOGYOrdered By: SYSTEM SYSTEM on 10-01-2023 Basophils/100 WBC (Bld) 1.2 % Normal 0.0 - 2.0 % [facility] HemeAutoSS Basophils/Leukocytes Auto (Bld) [Pure # fraction] 0.1 E9/L Normal 0.0 - 0.2 E9/L [facility] HemeAutoSS Eosinophils/100 WBC (Bld) 3.9 % Normal 0.0 - 8.0 % [facility] HemeAutoSS Eosinophils/Leukocyte s Auto (Bld) [Pure # fraction] 0.4 E9/L Normal 0.0 - 0.5 E9/L [facility] HemeAutoSS Lymphocytes/100 WBC (Bld) 30.8 % Normal 14.0 - 50.0 % [facility] HemeAutoSS Lymphocytes/Leukocyte s Auto (Bld) [Pure # fraction] 3.0 E9/L Normal 1.0 - 4.0 E9/L [facility] HemeAutoSS Monocytes/100 WBC (Bld) 5.8 % Normal 4.0 - 14.0 % [facility] HemeAutoSS Monocytes/Leukocytes Auto (Bld) [Pure # fraction] 0.6 E9/L Normal 0.2 - 1.0 E9/L [facility] HemeAutoSS Neutrophils/100 WBC (Bld) 58.3 % Normal 36.0 - 75.0 % [facility] HemeAutoSS Neutrophils/Leukocyte s Auto (Bld) [Pure # fraction] 5.6 E9/L Normal 2.0 - 7.5 E9/L [facility] HemeAutoSS HEMATOLOGYOrdered By: Liza Reynoso on 10-01-2023 Erythrocyte distribution width (RBC) [Ratio] 13.4 % Normal 10.9 - 14.2 % [facility] HemeAutoSS Hematocrit (Bld) [Volume fraction] 39.8 % Normal 34.0 - 46.0 % [facility] HemeAutoSS Hemoglobin (Bld) [Mass/Vol] 13.7 g/dL Normal 12.0 - 16.0 gm/dL [facility] HemeAutoSS MCH (RBC) [Entitic mass] 29.8 pg Normal 27.0 - 34.0 pg [facility] HemeAutoSS MCHC (RBC) [Mass/Vol] 34.3 g/dL Normal 31.4 - 36.0 gm /dL [facility] HemeAutoSS MCV (RBC) [Entitic vol] 86.8 fL Normal 80.0 - 100.0 fL [facility]eAutoSS Platelet mean volume (Bld) [Entitic vol] 7.7 fL Normal 6.4 - 10.8 fL [facility] HemeAutoSS Platelets (Bld) [#/Vol] 418.0 E9/L Normal 150.0 - 500.0 E9/L [facility]eAutoSS RBC (Bld) [#/Vol] 4.6 E12/L Normal 4.3 - 5.9 E12/L [facility] HemeAutoSS WBC corrected for nucl RBC Auto (Bld) [#/Vol] 9.6 E9/L Normal 4.0 - 11.0 E9/L [facility] [id number] 10-01-2023 HbA1c (Bld) [Mass fraction] 5.6 % Normal <=5.9 [facility] Comment on above: Performed By: #### 1 5430712, 4219208, 8230504, 4823931, 930593078, 3166783, 1222405, 2602817, 1019181 ####[facility] [address] [place] [address] Ironon 10-01-2023 Iron [Mass/Vol] 75 microgram/dL Normal 35-153 [facility] Comment on above: Performed By: #### 1 2243268, 5362023, 5739650, 5254449, 296379209, 0519048, 7691401, 5895678, 1399649 ####[facility] [address] [place] [address] TSH With T4fr Reflexon 10-01 TSH Qn 0.96 m[IU]/L Normal 0.34-5.60 [facility] Comment on above: Performed By: #### 1 5293257, 6190565, 2494136, 0500446, 430794085, 9867265, 7478022, 1891344, 3686433 ####[facility] [address] [place] [address] Transferrinon 10-01-2023 Transferrin [Mass/Vol] 310 mg/dL Normal 200-370 [facility] Comment on above: Performed By: #### 1 6513433, 9090911, 0657244, 4756007, 423979389, 2287145, 1404629, 6453307, 9625536 ####[facility] [address] [place] [address] Vit B12on 10-01-2023 Cobalamin (Vitamin B12) [Mass/Vol] 369 pg/mL Normal 50-1500 [facility] Comment on above: Performed By: #### 1 2530694, 1696283, 9369339, 2439503, 648099169, 8236394, 2926015, 3348216, 9132654 ####[facility] [address] [place] [address] Coding Summaryon 09-20-2023 Coding Summary HTMLBase 64 XrbfuqofIYo2oNi+PGhl YWQ+GZ1ACMWkM51myUAb gL7kT3WKCGpDTflbMMPZ XEuLMtNilxHyGM1ncOZt ZXJu IC8+JQ6mOZXlLdmnsTKs q5M4dJJ6J47sfe3pBKnr qOF6CWGrLwZslrmka0es xOq3JFozSinmWqLt TKSxrV90ORS5eT49Hp16 lYNkhFAen6zvzFz8QdAi BKLwYPI3nHeqGUolv3Ej GJCrQ32hfQLek3I2 IGNvbGxhcHNlOyBlbXB0 pR0bLPkzpzeun4qnemtu Quo5so30hFMie3E8gVS7 L7VunoO9DEQoyKHz XkdwmYQZzT4bfgttb7ii ziipHaOoSAJbTFl8ZVu7 QSDsnVyzOjGcPW89GAY6 DGRuwhXiY9ZyYDFh uUouIfQ7i4X5Lj7IN7UE QhvvM2BQTTADBBsevGU+ KV03ld99D3UjAoaaYkq7 NTBrCSI4tGZ6lD2l OQUgUYnpa9Y5pRR8F5Cr ouUlyq3xe2elQRXdNPtk H13whSJcu6P9FKArqNS2 ZSBqfTidEmVfjC01 Oyc+HQSysTznf7BuKaus h3wdj4njxUl1VhqkYTLu dbYitMfoFGQ3b0KiZm3c YCYzdIC7dTK1bP9o GcGrIvW0IVccI132RcCf uIMjHvgqH91dD4HctEL+ YXXzHot3XKBiaGgbIG0n U6HkEVTqsdafkCBa jDqrMX4zYLBntgxrBBYo vP6pACLlT1h7GcIrQbW7 TXkcS0VkLXIdyxtaJv42 yT2aRlYxZnY2VMop J7ImceR0BHQnlUKbQPxw LVE1H05gj9X8XUDxGOFt XLR4zDO4eV9osFqayfvf bGVmdDsgdmVydGlj FOwtYLieM613ZKHvoOyj PkNvZGluZyBEYXRlOiAg MTEvMTgvMjAyMzwvdGQ+ KQUwRYQ1aRjqVUIo yUBgYOpyMg8gtAdrfNba WJ8yKJYzjeopBCQfwK7r MEAyvSBlkDrrBA5pURZn mtovc438ZwQhAPM8 IPIgvEOpX3WpuX4aDlZd AJOwFICqW1AurXMbMWiy T557MYmrSkK7NPUkfoBm N8DdDBEgfFxvLgJ5 m3F4Ku0Gg9SzmyzhO3Yd vQAsEnAkUvwuLAq7B8Rb PjwvdHI+WG36JTVuAQ06 IYk5VAO9aYwlTOqg FWRtY9DqoP4kFtKsECBd ZGRkOyc+PHRhYmxlIHdp ZHRoPScxMDAlJyBzdHls WI0vRf2hADImRYNw zNfciDJuGiTxu2rpKAQy MOiiNX4ubQixB4UfvPK4 TTYqj9d0Mt99D01mS1Op dXA+PRXsoAO4dUC0 qN1zZrFnMqJ6RDfkM116 FuHdhKBjAmtbp2qdg3mi wRt0GhX0WYBckrHejBrw VZG4k4OhHb86Q85v IHdpZHRoPSIxNSUiIHZh bVudxi9siE2vDc2+PGNv eVX8hIU6hU5gPmOqAuF5 CVumE066NwMueDSv Mztrf2fnk5diiLu9TeLj CTNsbuPhpThaVGQ7m5Qd Tc69L8AnaRjca6UmZrs9 fd63hENvs6J8rZY0 W2KbRBHgncpncFEyvIzd EF2zDPGgpfmcTQCjgX7q UIYuP1d9WaNwHdN6ZEav K7SmrhB9UPGzwUEf CECuoCTPpS7dqjxmq1dr fibbFxOxOAFlIBx7NDc3 KQWszExdJpFyTEV0EeB2 HQF6pIQnaN7fpDex pbzxhK3vQzu+TLH5fBMk qEHJCB4kHezntJZ+PHRk PHC2tLvbFWrwNRCxfD5y WDUhZ7x2HlGvOjA4 EGcqT6XyevY8XWOsaODc QFJzxGCRpE1gvmfyn9au jdcbLpXlNIWgAYx7KZw5 LWFsaWduOiBsZWZ0 OaH6LVO5kEMhlX7jgJpb hzkbdF8kOeb+QmlydGgg UPR4CSk4S8JmBsa1VMXu iQbwZG1viERcLTsd Eh3esYzzrThwKE4rUUXa oukdt226ChDfw0oiDREk iEFbTVynGTM5P84pz4K2 TWOfKNGmGAD2vWZ0 rZ2amLjjdarzrLSfeGci qhMzzGxxOSehPQlrJ989 JDDysYjoCiZzQJr9P8Vc Xxl7KDNoqMwjRH4p hYBgBPwlGi9dzKmfdPuz SK8dURIqviemq681MuMz d1txKHKobVErFNxrLKV9 V07xf8H3GRPrZKSk YXN4zFW5hA7tiPcournx bGVmdDsgdmVydGljYWwt LPxvV558GFDoyTfdBoEx uGu1Z8HfNpi4EOCy yQokFL3olNSyPJhtQb1u cVuefTayGK1fODQpblaf z543NgIvj8klBVAtwVTl BXfbWPV0I32fc1X9 QMPeBWAyQOH2sAY8hK2y bGlnbjogbGVmdDsgdmVy aFccIZvzOGqxB468UGQk cDsnPlBhdGllbnQg DDfmPAv6B6BtXwrdlJN+ NE82RQPpBK01iPHrlINk m2fsnNs5CjIgBMBhEFT7 pPixCSbyk8EnXLDl V41voSGmn6O6SYAxcQej aXWcEgWkqNQ4fE5nOVml ibxgj7jhbkvqKkdvz4zp pe63xJ04O51pCFuk ZHRoPSIzMCUiIHZhbGln on0obM9fSn2+PGNvbCB3 tLT3uK3bKQXhHrX1TZnj H580ZhHvyWEhIays b0tpi6cmoKl8LgY0SJFg htAjkXfeUTI2y7LiGd66 K68aWGrqXWXbUPCaBKPp ZQJleZqpas7xdT7f Ii8+OWAlvVC7nKL1nI9j XfVpAfI3RSwyV711JrFy gNBoAbvyE39vB6BnpHX+ ILDrEpj5QQTlfUhq VW9jkARfVJtkQo6qJVD5 MbEsZnItVWieZ2QcOKDz bofvevsiaRO5AJHwGJIu gS26Kc6jfRcbJSDp eZDMrZ2xltezv2witwaf JrVsQZNqTWz4MOh9KLMa dByuFjYdZWY3QuO1LQS3 oKCdgO5pnCgaghua lX8sU5GoIVKcatgdVq17 qR8uQyJzIxQ6SKevYsp+ XmGMACWzLYYXBd7CVVXJ RTwvdGQ+PHRkIHN0 pAjuBGntZOYzqD1jZGTn W9x5IzKcWgS4YCrsG0Rw RSLzhhwgUk88oF6sCeOv BlC0WYsxX0HawaQ7 FYIxeJUcFMqsUTH7J18z v2Z2LDKcIWMbFNN6sMU3 hK9mnNthpdzvqHOeiHzg dmVydGljYWwtYWxp U869XSTsjOdpHyGzYuBy PtV6LpK5O1MxWaq1WMMa gVwhBC3phSHpCUjjSt1b iBuhtHhiRT4nZQGs dyeiIQFlqI5sMLJmrTEx iFruEX9qEMGochjdm254 VrTmTOK5ENNqcRTiX8Si pG3nIdXxBAYeFMNy D7WzsBJsGSygY043TPbq DgW7RHHoznEiB7XpVWPt yZdeObK3x3X1Hd54NQTD ZWFyczwvdGQ+PHRk LAB6nIqpFWumBWEwoU2i UXBwC1o2XbTcEoS5EAdt U2EtOAHsfnnwXu97fJ9g LzCbYcO8LSidN7Qz egB2FSTnoMRdKQdlODN2 T06ga7J7VZDrVEMyZRE4 oIC8lG9vfVasrjqppNRk dDsgdmVydGljYWwt RQxjK788HDBscJszTuUI TUFMRTwvdGQ+PHRkIHN0 fLgcEUbeVDXbiH7oXAUa C0l6GhMmVkL6NEdb R6CbRKDiaxuuBl08mH4d WpCxWrT9HLdzY6AktjB3 ZWRcbLYlUGpgXSS1R47n e3O0PNYnUOEsTNP5 pFL0pL4ikJrajblbcVFy dDsgdmVydGljYWwtYWxp F691GTXmsPqoRlJhSDKp OT8cnDljsEU+PC90 es90G9WjUhshCtz4MJRu MKA6gZQ7xY6uSPBrQBbc z2Q9xPV3W2SfjdLmva9k b2scOZOnIDerG43d bVSxs2Y4ARWtsNG6OGNv eVmnYaOswQ74Tlo+PGNv iBwec0MyKvpfb9yzh6xi lMb3PoItRZMtpfPz iRvgNPU2v3YnNg64P92j IHdpZHRoPSIzMCUiIHZh oOwfgy7hmX4xAo0+PGNv cRI9qRI2gS4lJdHh VdT0XTyuB933ToKazQXb Rdhkt4ski4cykVo1MbHf PJDqtnDzpOdlVYT4z6Ty Sy51T2AriXvnj7As Cvp9zf38lKYim1X7eMV3 S9HoZIZxhkdwjBPhjYsg HK8gCZDkyttxZWSmfK2e VYUcJ6u7EbImGkE2 YXqcS4ZvjlT9VAQzbRUd KPDpdVWOjX2xjgevj8ta emixGyNnGEByBOc2TYd5 LWFsaWduOiBsZWZ0 RfM8ZQX3yLZnrA3wfQye zuklcN7sItz+ETh8q2zx cKXqDU8lnMN6ZJ88ZB93 vOCow9W2kGA0B9Bj MZGpygvlsegigYF4LMJw FLEwcB96Mt7hdVgbXv5r CJMiTJV2MCJuoEPiD1Is lL4jLhUzCOVqNQDd N3WloIRnPHtiV872FJlr EwF2YFGtmiKlG6KrIBEa eAufPdE3k8L5Nr2KGY88 VE60HR55mGZav6Y8 yFT7O0ZrBIIdntldmwcy hYQ0ZKUtXDThsK84Ul5g mKhzJw7uJZRpZRE5TGZz jAOtE9HmbM0oXiIh WIVdZCBmU9BreFYlXBoz H543NUmaGkI6WMSepkWd S3HdBAAyvRfmGpZ3z2R1 Sg3PGi14HT22ZY51 lAUxu2Z4yAE1L4IxIVTl ubcwbbqtaKS5EXTiNFTn uI09Sv3sbEbgUy3dCOQr OBE6KXGcxAAqP7Uf oW6aGqDuVDSuIEZdG0Ms bRZzSMoqL793MXmzDlQ9 YTDgfcArV8EbIZYfmVzn MwV5q0X3Ej5OQZaq sxb1Q9WfXrvthCS+PC90 XEIwQY72eIKxtPOaf6ez hOt1IqKgPUUoIRW3qHru XHapg8ZkVSWrX75w bGF (more content not included)... Normal [facility] Consent for Flu Vaccineon Consent for Flu Vaccine [id number]# [id number] Normal [facility] c Noteon 09-17-2023 Family Medicine Office/Clinic Note Chief Complaint F/u HPI Staff 3 month F/U ADHD followup: Sleeping well: Yes, 6-8 hours Blood pressure:Reviewed, _ Concerns/complaints: None Controlled substance:yes Urine Drug Screen done: Medication Agreement updated: UTD SHIRIN 06/17/23 Patient would like some medication for eczema she usually get it at Dermatology but would like it soon due to she doesn't have appt till November History of Present Illness 47 Years old Female here to f/u for 3 month f/u med management HPI staff / Chief Complaint confirmed with the patient Interval history: won't take her adderall when she's close to getting her botox injections as it seems to increase migraines the patient's daughter has ADHD and struggles with anger issues 07/24/2023-neurology- Lisa Martínez Botox injections for chronic migraines Patient tolerated 07/23/2023-neurology- Lisa Martínez Chronic migraines Noted to be due for Botox injection tomorrow Patient reports headaches are worse right before and right after likely medication is not as effective Notes that she does have some slurring of her speech and trouble with her thought process associated with her migraines MRI of brain and cervical spine in 2019 did show some small vessel changes but did not show any evidence of demyelinating disease or stroke Notes that she could have something going on in her low back-EMG revealed left S1-S2 radiculopathy which appears to be more chronic Legs continue to have tingling sensations Some difficulty with walking and has a hard time getting up Has not completed physical therapy Denies incontinence Occasional stress incontinence Ibuprofen and ketorolac are not beneficial Zanaflex helps somewhat Diagnosis list includes cervical spondylosis, intractable migraine without aura, chronic migraine, hypersomnia, restless leg syndrome, primary insomnia, cervical radiculopathy, chronic daily headache, itching, paresthesia bilateral legs Migraines are 50 to 75% better Referred for physical therapy Patient inquired why she was not being sent for MRI evaluation of low back; discussed how she needs to fail physical therapy before insurance will pay for MRI of low back Continued neck pain and cervical C8-T1 radiculopathy with underlying spondylosis and paresthesias to her hands and feet *Noted that MRI of cervical spine and/or shoulder was ordered by PCP but denied by insurance We will proceed with updating EMG of bilateral upper extremities last completed in November 2019 We will proceed with updating EMG of bilateral lower extremities which was last completed in December 2019 RLS-continue Mirapex Administered Toradol for acute migraine Consider MRI of lumbar spine Zanaflex 4 mg p.o. half to whole nightly Recommend weight loss Noted that PCP is now prescribing Adderall Avoid sleeping more than 8 hours in bed Patient questioning if she may have narcolepsy --> deferred to PCP --------- June 17, 2023-new to me Here with her friend Tip who also needs a family doctor Recent bee sting requiring ED visit Resumed Prozac after her last appointment and taking at bedtime-she is able to sleep Replaced Pap with sweet tea Noted to take extra Adderall to counteract her leg pill ADHD-has not picked up driven to distraction --> briefly discussed decreasing medication dosing MDD improved on resuming Prozac Restless leg syndrome-recommend labs to check ferritin level --> continue with neurology Anemia --> check follow-up labs Anxiety-coping is appropriate; no changes Low vitamin D-check labs *discussed rationale for headache log to share with neurology April 04, 2023-PCP ADHD first diagnosed more than a decade ago--> noted to be on 2 XR formulation medications; recommended driven to distraction and 7 emotions that knock us off our feet Restless leg on Mirapex makes me tired --> consider medication change at follow-up appointment MDD/TED I was feeling good and decided to come off Prozac --> Review of Systems PHQ Score Initial Depression Screen Score: 3 SCORE Physical Exam Vitals & Measurements HR: 83(Peripheral) BP: 128/94 SpO2: 98% HT: 64 in HT: 163 cm WT: 80.9 kg WT: 177.98 lb BMI: 30.45 PHYSICAL EXAM Constitutional: Vital signs reviewed; TOOTIE NICOLE is well nourished, no acute distress Lungs: Clear to auscultation, non-labored respiration - expansion is symmetric Heart: Normal rate and rhythm, normal peripheral perfusion Lymph: Deferred Abd: Deferred : Deferred MSK: Normal gait and station Skin: Warm, dry Neurologic: Awake, alert and oriented, speech is normal, no focal deficits, CN II-XII grossly intact Psychiatric: Cooperative, appropriate mood and affect, judgement is appropriate Assessment/Plan 1. ADHD (F90.9: Attention-deficit hyperactivity disorder, unspecified type) Impression: Chronic Well controlled ADHD On adderall 20mg XR and 10 mg XR in the afternoon Coping is appropriate The patient describes no si (more content not included)... Normal [place] Comment on above: Result Comment: Elec tronically Signed By: Romeo Chaidez DO\.br\Date and Time Signed: 09/17/23 17:33 EST ED Clinical Summaryon 2022 ED Clinical Summary [facility] Emergency Department [address] [place], [place] [id number] ED Clinical Summary PERSON INFORMATION Name: TOOTIE NICOLE Age: 47 Years Sex: FEMALE : 1975 MRN: Acct#: Visit Reason: Headache - Recurrent; Nausea; Neurologic problem; HEADACHE Arrival: 09/15/2023 21:33:37 Discharge: 09/15/2023 23:42:00 LOS: 000 02:09 Check In: 09/15/2023 21:33:37 Checkout:09/15/2023 23:42:00 Address: [address] [place] [id number] PCP: Romeo Chaidez DO PROVIDER INFORMATION Provider Role Assigned Unassigned Heath BREWSTER, Melani Stock ED Nurse 09/15/2023 22:00:18 Tru Matt DO ED Provider 09/15/2023 22:07:06 VITALS INFORMATION Vital Sign Triage Latest Temperature Tympanic Temperature Temporal Artery Pulse Rate 75 bpm 75 bpm O2 Sat 98 % 98 % Respiratory Rate 16 br/min 16 br/min Blood Pressure /85 mmHg /85 mmHg MEDICAL INFORMATION Medications Given: Medication Dose Route HYDROmorphone (Dilaudid) 0.5 mg IM ketorolac 60 mg IM ondansetron 4 mg IM diphenhydrAMINE (Benadryl) 50 mg IM Allergy Information: traMADol; Latex Allergy; Adhesive Bandage; Phenergan; Imitrex; penicillin PHYSICIAN DOCUMENTATION DISCHARGE INFORMATION: Discharge Disposition: Home Discharge Location: Home PATIENT EDUCATION INFORMATION Instructions: Migraine Headache, [id number] Follow-Up: With: Address: When: Lisa Martínez [address] [place] [address] Business ([id number] Within 3 to 5 days Comments: home continue with Dr Martínez, call her office tomorrow for a recheck apt you are welcomed to return anytime. T H SHAKA< ER PHYSICIAN< H [facility] DIAGNOSIS: Migraine variant Patient Understands: Yes - Patient/family/careg iver verbalizes understanding of instructions given Comment: [facility] ED Note - Physicianon 2022 ED Note - Physician Patient: TOOTIE NICOLE Age: 47 years Sex: FEMALE : 1975 Associated Diagnoses: Migraine variant Author: Tru Matt DO Basic Information Time seen: Date & time 09/15/2023 22:30:00. History source: Patient. Arrival mode: Private vehicle, walking. History limitation: None. History of Present Illness The patient presents with This patient, who is knows to us from prior visits for a similar c/o, has a hx of migrains, that she states shifts from side to side, today is on the right, retro orbit, 3-4 days, with nausea, no vomit, no diarrhea, no fever, no neck pain, no back pain, no st, no cough, no abd pain, no rash; here with her ; Neuro is Dr Martínez, has not contacted, is receiving botox tx, just at the end of that therapy, she states; Is not employed; No uti sx PE: Pleasant, alert, oriented, neck supple, pupils 3.0 mm jr, photophobic, heent nl, no stridor; lungs cta, hrrr, no m, abd soft, non-tender, neuro is symmetric; speech precise; skin warm, and dry; . Health Status Allergies: Allergic Reactions (Selected) Unknown Adhesive Bandage- No reactions were documented. Imitrex- No reactions were documented. Latex Allergy- No reactions were documented. Phenergan- No reactions were documented. Severity Not Documented Penicillin- No reactions were documented. TraMADol- Secure, adhesive tape.. Past Medical/ Family/ Social History Medical history: Resolved Migraines ([id number]): Resolved.. Surgical history: Rhinoplasty ([id number]) on 07/10/2016 at 40 Years. DNS (deviated nasal septum) ([id number]) on 07/10/2016 at 40 Years. Nasal polypectomy ([id number]). Appendectomy ([id number]).. Family history: No family history items have been selected or recorded.. Social history: Social & Psychosocial Habits Alcohol 06/04/2023 Alcohol Use: Never 09/15/2023 Alcohol Use: Never Substance Use 06/04/2023 Substance use: Never 09/15/2023 Substance use: Never Tobacco 04/24/2016 Risk Assessment: High Risk 04/10/2022 Smoking tobacco use: Current everyday tobacco Number used per day: 1/2 ppd 06/04/2023 Smoking tobacco use: Current everyday tobacco Number used per day: 2 ppd 09/15/2023 Smoking tobacco use: Current everyday tobacco Comment: 11/04 ppd - 09/15/2023 21:47 - Olimpia BREWSTER, Anika Stock Electronic Cigarette/Vaping 06/04/2023 Electronic Cigarette Use: Never 09/15/2023 Electronic Cigarette Use: Never . Problem list: Active Problems (4) Headache, chronic migraine without aura, with status migrainosus Migraine Restless leg syndrome Smoker . Medical Decision Making Orders Launch Orders Pharmacy: Ativan injection (Order): 1 mg, IM, Once prochlorperazine (Order): 10 mg, IM, Once ketorolac (Order): 60 mg, IM, Once, Launch Orders Pharmacy: Dilaudid (Order): 0.5 mg, IM, Once, Launch Orders Pharmacy: ondansetron (Order): 4 mg, IM, Once Benadryl (Order): 50 mg, IM, Once. Reexamination/ Reevaluation Time: 09/15/2023 23:26:00 . Vital signs Patient states she is feeling much better, is comfortable, conversant, agrees that she is ok to go home Impression and Plan Diagnosis Migraine variant ([id number] G43.809, Discharge, Medical) Plan Condition: Improved. Disposition: Discharged: time 09/15/2023 23:27:00. Patient was given the following educational materials: Migraine Headache, [id number]. Follow up with: ; Lisa Martínez Within 3 to [address] continue with [address] Martínez, call her office tomorrow for a recheck apt you are welcomed to return anytime. Sanjay MATT< ER PHYSICIAN< Verna Cornelius. [Electronically Signed on: 09/16/2023 02:56 EST] Tru Matt DO [Verified on: 09/16/2023 02:56 EST] Tru Matt DO Normal [facility] ED Patient Summaryon 023 ED Patient Summary [facility] - Emergency Department [address] [place] [address] PATIENT DISCHARGE INSTRUCTIONS Patient Information Name: TOOTIE NICOLE Age: 47 Years Date of : 1975 Reason For Visit: Headache - Recurrent; Nausea; Neurologic problem; HEADACHE Arrival Time: 09/15/2023 21:33:37 Primary Care Physician: Romeo Chaidez DO Attending Physician: Tru Matt DO Comment: Visit Diagnosis: Diagnoses This Visit Headache - Recurrent ([id number]) Migraine variant (G43.809) Nausea ([id number]) Neurologic problem ([id number]) The Pharmacy at [facility] is open Friday through Friday from 9A to 6P and Friday and Friday from 9A to 5P Prescription Information: If you have been given a prescription for narcotics, seek immediate medical attention if you have any difficulty breathing or any sudden status changes such as confusion and sleepiness. If you or anyone you know is experiencing suicidal thoughts, mental health, alcohol and/or drug addiction problems; contact the [facility] 26/05 Crisis Hotline -Text 4HAND to 544036. If you received any narcotics, sedation, or any other medication that causes drowsiness for the next 24 hours, unless otherwise directed: ? Do not drive a car. ? Do not operate machinery such as power tools, lawn mowers, drills, sewing machines, or stoves ? Avoid alcoholic beverages and drugs for allergies, nerves, or sleep ? Do not make important personal or business decisions or sign any legal documents With: Address: When: Lisa Martínez [address] [place] [id number] Business (1) Within 3 to 5 days Comments: home continue with Dr Martínez, call her office tomorrow for a recheck apt you are welcomed to return anytime. Sanjay MATT< ER PHYSICIAN< Verna Cornelius Medication Information: The exam and treatment you received today in the [facility] Emergency Department were for an urgent problem and are not intended as complete care. It is important for you to follow up with a doctor, nurse practitioner, or physician?s stores assistant for ongoing care. If your symptoms become worse or you do not improve as expected and you are unable to reach your usual health care provider, you should return to the Emergency Department, we are available 24 hours a day. For those patients who have received Radiology results, the interpretation of your X-ray as given to you by our Emergency Department physician is only a preliminary report. The Radiologist will review your films and if there is a change in the diagnosis you will be notified by phone. Please make sure you have provided a working phone number so we can reach you if necessary. In the event that you had a lab culture while you were a patient in the Emergency Department, you will be notified by phone if there is a need to change your antibiotic. Please make sure you have provided a working phone number so we can reach you if necessary. [facility] Emergency Department has provided you with a complete list of medications post discharge. Please inform your customs patrol officer/provider of your visit and for further instruction on these medications. Any specific questions regarding your chronic medications and dosages should be discussed with your primary care physician(s) and/or pharmacist. Medications to Continue That Have Not Changed Other Medications amphetamine-dextroam phetamine (Adderall) ARIPiprazole (ARIPiprazole 2 mg oral tablet) 3 tab(s) Oral every day. cyclobenzaprine (Flexeril) Oral 3 times a day. FLUoxetine (FLUoxetine 40 mg oral capsule) 2 cap(s) Oral every day. ibuprofen (ibuprofen 800 mg oral tablet) 1 tab(s) Oral 3 times a day as needed as needed for pain. ketorolac (ketorolac 10 mg oral tablet) magnesium oxide (magnesium oxide 400 mg oral tablet) 1 tab(s) Oral every day. nortriptyline (nortriptyline 10 mg oral capsule) 1 cap(s) Oral 3 times a day. onabotulinumtoxinA (Botox 100 units injection) 1.25 unit(s) Intramuscular every 3 months. ondansetron (ondansetron 4 mg oral tablet) 1 tab(s) Oral every 6 hours. take 1 tablet by mouth every 6 hours if needed for nausea. Refills: 0. oseltamivir (Tamiflu 75 mg oral capsule) 1 cap(s) Oral 2 times a day for 5 Days. MAGRU. Refills: 0. pramipexole (pramipexole 0.5 mg oral tablet) 1 tab(s) Oral 3 times a day. tiZANidine (tiZANidine 4 mg oral tablet) take 1/2 to 1 tablet by mouth three times a day. Visit Information Allergies: Substance Reaction Symptoms Type Comments Imitrex Drug penicillin Drug Phenergan Drug traMADol Secure, adhesive tape Drug Latex Allergy Environment Adhesive Bandage Other Vital Signs: Vitals and Measurements this Visit (last charted value for your 09/15/2023 visit) Vital Signs This Visit Temperature Oral: 36.8 DegC Peripheral Pulse Rate: 75 bpm Re (more content not included)... Normal [facility] 03-18-2023 [facility] Office Visit (PLASMN) TOOTIE NICOLE ([id number]) 1975 F Date Time Provider Department 03/18/23 4:15 PM REMIGIO TRUJILLO During your visit today, we recorded the following information about you: Remigio Trujillo MD 03/18/2023 5:35 PM Signed Date: 03/18/2023 PROCEDURE: Syneron DANIELLE to face DIAGNOSIS: dyschromia Reviewed risks, benefits, alternatives, and personnel. Patient stated understanding and consents to proceed. SKIN TYPE: Mane # I ROOM SETUP: Laser safety checklist followed Doors closed Safety DANGER signs posted Laser instrumentation utilized Laser eyeware immediately accessible before entering OR EYE PROTECTION: Patient Physician Personnel MALFUNCTIONS / PROBLEMS ENCOUNTERED DURING SURGERY/PROCEDURE: Not applicable for this patient PROCEDURE: The patient was prepared with ultrasound gel. The laser settings were initially chosen at 24-28J/cm(2) - RF 25J/cm(3) to face and RF 15J/cm(3) to forehead. Pulses= 58 Dr. Trujillo performed the procedure. PAIN: No: 0 on a scale of 0 to 10 The patient tolerated the procedure well. Will return in 1-2 months. Syneron DANIELLE (maintenance) to face ($200) Remigio Trujillo MD Allergies As of Date: 03/18/2023 Noted Allergy Reaction PENICILLINS 09/20/2003 2 - Rash TRAMADOL 04/05/2013 2 - Rash Date Reviewed: 03/18/2023 Reviewed by: Jewell Mascorro Ma - Fully Assessed Reason for Visit: Follow Up [171] Cmt: Laser Primary Visit Diagnosis:Encounter for cosmetic surgery [Z41.1] Prescriptions as of 03/18/2023 - hydroquinone (OBAGI NU-DERM) 4 % cream apply daily - tretinoin (RETIN-A) 0.025 % topical cream apply to affected area once every other day. May begin twice daily PRN - COMPOUNDED PRESCRIPTION Apply to affected area. Problem List As Of Date 03/18/2023 Noted Resolved PLASTIC SURGERY NEC [Z41.1] 06/13/2006 Encounter Status:Closed by REMIGIO TRUJILLO on 03/18/23 Normal [facility] CARDIAC YAJAIRA ADMITon 01-22-2 023 CK [Catalytic activity/Vol] 104 U/L Normal 26-192 [facility] Comment on above: Performed By: #### C CARMEN, BMP #### [facility] [address] [place] [address] Dr. Fabian Rivas CK.MB [Mass/Vol] 0.90 ng/mL Normal <=3.60 [facility] Comment on above: Performed By: #### C CARMEN, BMP #### [facility] [address] [place] [address] Dr. Fabian Rivas HSTROP <4.0 Normal 4.0-51.3 [facility] Comment on above: Result Comment: CUT- OFF POINTS HAVE BEEN ESTABLISHED BASED ON THE FOURTH UNIVERSAL DEFINITIONS OF MYOCARDIAL INFARCTION. THE UPPER REFERENCE LIMIT (URL) OF TROPONIN, DEFINED THE 99TH PERCENTILE OF cTnI DISTRIBUTION IN A REFERENCE POPULATION, HAS BEEN CONFIRMED THE DECISION THRESHOLD FOR MA DIAGNOSIS. Performed By: #### C CARMEN, BMP #### [facility] [address] [place] [address] Dr. Fabian Rivas NORMAN 32 ng/mL Normal 9-82 [facility] Comment on above: Performed By: #### C CARMEN BMP #### [facility] [address] [place] [address] Dr. Fabian Rivas CBC AUTO DIFFon 11-24-2022 BASO # 0.1 103/ul Normal 0.0-0.1 [facility] Comment on above: Performed By: #### C BC #### [facility] [address] [place] [address] Dr. Fabian Rivas Basophils/100 WBC (Bld) 0.9 % Normal 0.2-2.0 [facility] Comment on above: Performed By: #### C BC #### [facility] [address] [place] [address] Dr. Fabian Rivas EO # 0.4 103/ul Normal 0.0-0.7 [facility] Comment on above: Performed By: #### C BC #### [facility] [address] [place] [address] Dr. Fabian Rivas Eosinophils/100 WBC (Bld) 3.8 % Normal 0.9-7.0 [facility] Comment on above: Performed By: #### C BC #### [facility] [address] [place] [address] Dr. Fabian Rivas Erythrocyte distribution width (RBC) [Ratio] 13.4 % Normal 11.0-15.0 [facility] Comment on above: Performed By: #### C BC #### [facility] [address] [place] [address] Dr. Fabian Rivas Hematocrit (Bld) [Volume fraction] 36.8 % Normal 36.0-48.0 [facility] Comment on above: Performed By: #### C BC #### [facility] [address] [place] [address] Dr. Fabian Rivas Hemoglobin (Bld) [Mass/Vol] 12.9 g/dL Normal 12.0-16.0 [facility] Comment on above: Performed By: #### C BC #### [facility] [address] [place] [address] Dr. Fabian Rivas IG # 0.02 10e3/ul Normal 0.00-0.03 [facility] Comment on above: Performed By: #### C BC #### [facility] [address] [place] [address] Dr. Fabian Rivas IG % 0.2 % Normal 0.0-0.5 [facility] Comment on above: Performed By: #### C BC #### [facility] [address] [place] [address] Dr. Fabian Rivas LYMPH # 2.7 103/ul Normal 1.2-3.8 [facility] Comment on above: Performed By: #### C BC #### [facility] [address] [place] [address] Dr. Fabian Rivas Lymphocytes/100 WBC (Bld) 27.3 % Normal 20.5-60.0 [facility] Comment on above: Performed By: #### C BC #### [facility] [address] [place] [address] Dr. Fabian Rivas MANUAL DIFF REQ NO Normal [facility] Comment on above: Performed By: #### C BC #### [facility] [address] [place] [address] [address] Fabian Rivas MCH (RBC) [Entitic mass] 28.5 pg Normal 26.7-34.0 [facility] Comment on above: Performed By: #### C BC #### [facility] [address] [place] [address] [address] Fabian Rivas MCHC (RBC) [Mass/Vol] 35.1 g/dL Normal 29.9-35.2 [facility] Comment on above: Performed By: #### C BC #### [facility] [address] [place] [address] [address] Fabian Rivas MCV (RBC) [Entitic vol] 81.4 fL Normal 81.0-99.0 [facility] Comment on above: Performed By: #### C BC #### [facility] [address] [place] [address] Dr. Fabian Rivas MONO # 0.5 103/ul Normal 0.3-0.8 [facility] Comment on above: Performed By: #### C BC #### [facility] [address] [place] [address] Dr. Fabian Rvias Monocytes/100 WBC (Bld) 5.3 % Normal 1.7-12.0 [facility] Comment on above: Performed By: #### C BC #### [facility] [address] [place] [address] Dr. Fabian Rivas NEUT # 6.1 103/ul Normal 1.4-6.5 [facility] Comment on above: Performed By: #### C BC #### [facility] [address] [place] [address] Dr. Fabian Rivas Neutrophils/100 WBC (Bld) 62.5 % Normal 43.0-75.0 [facility] Comment on above: Performed By: #### C BC #### [facility] [address] [place] [address] Dr. Fabian Rivas Platelet mean volume (Bld) [Entitic vol] 9.7 fL Normal 9.5-13.5 [facility] Comment on above: Performed By: #### C BC #### [facility] [address] [place] [address] [address] Fabian Rivas PLT 347 103/ul Normal 150-450 [facility] Comment on above: Performed By: #### C BC #### [facility] [address] [place] [address] [address] Fabian Rivas RBC 4.52 106/ul Normal 4.20-5.40 [facility] Comment on above: Performed By: #### C BC #### [facility] [address] [place] [address] [address] Fabian Rivas WBC 9.7 103/ul Normal 4.0-11.0 [facility] Comment on above: Performed By: #### C BC #### [facility] [address] [place] [address] Dr. Fabian Rivas PROF CHEM 8 (BAS METB)on Anion gap [Moles/Vol] 14.9 mmol/L Normal [facility] Comment on above: Performed By: #### C MADM, BMP #### [facility] [address] [place] [address] [address] Fabian Rivas Calcium [Mass/Vol] 9.2 mg/dL Normal 8.5-10.1 [facility] Comment on above: Performed By: #### C MADM, BMP #### [facility] [address] [place] [address] [address] Fabian Rivas Chloride [Moles/Vol] 103 mmol/L Normal 98-107 [facility] Comment on above: Performed By: #### C MADM, BMP #### [facility] [address] [place] [address] [address] Fabian Rivas CO2 [Moles/Vol] 25.5 mmol/L Normal 21.0-32.0 [facility] Comment on above: Performed By: #### C MADM, BMP #### [facility] [address] [place] [address] [address] Fabian Rivas Creatinine [Mass/Vol] 0.56 mg/dL Normal 0.55-1.02 [facility] Comment on above: Performed By: #### C MADM, BMP #### [facility] [address] [place] [address] [address] Fabian Rivas EGFR-AF ESTONIAN >60 Normal >=60 [facility] Comment on above: Performed By: #### C MADM, BMP #### [facility] [address] [place] [address] [address] Fabian Rivas EGFR-NON AF ESTONIAN >60 Normal >=60 [facility] Comment on above: Performed By: #### C MADM, BMP #### [facility] [address] [place] [address] [address] Fabian Rivas Glucose [Mass/Vol] 100 mg/dL Normal 74-106 [facility] Comment on above: Performed By: #### C MADM, BMP #### [facility] [address] [place] [address] [address] Fabian Rivas Potassium [Moles/Vol] 4.4 mmol/L Normal 3.5-5.1 [facility] Comment on above: Performed By: #### C MADM, BMP #### [facility] [address] [place] [address] [address] Fabian Rivas Sodium [Moles/Vol] 139 mmol/L Normal 136-145 [facility] Comment on above: Performed By: #### C MADM, BMP #### [facility] [address] [place] [address] [address] Fabian Rivas Urea nitrogen [Mass/Vol] 11.0 mg/dL Normal 7.0-18.0 [facility] Comment on above: Performed By: #### C MADM, BMP #### [facility] [address] [place] [address] [address] Fabian Rivas Urea nitrogen/Creatinine [Mass ratio] 19.6 mg/mg Normal [facility] Comment on above: Performed By: #### C MADM, BMP #### [facility] [address] [place] [address] [address] Fabian Rivas XR CHEST 1 Von 11-24-2022 XR CHEST 1 V EXAM: XR CHEST 1 V INDICATION: CHEST PAIN, UNSPECIFIED. COMPARISON: None. TECHNIQUE: Single frontal view of the chest FINDINGS: Normal cardiomediastinal contours. Clear lungs. No pleural effusion or pneumothorax. No acute osseous abnormality. IMPRESSION: No acute cardiopulmonary process. Electronically authenticated by: ILIANA BERMUDEZ Date: 2022-11-24 15:28 [facility] Albumin [Mass/volume] in Ser um or PlasmaOrdered By: Myron Sullivan on 05-22-2022 Albumin [Mass/Vol] 3.2 g/dL 3.2-5.5 [facility] Automated erythrocytes count in urine sediment (number/area)Ordered By: Myron Sullivan on 05-22-2022 RBC Auto (Urine sed) [#/Area] 3-4 [HPF] 0-4 [facility] Automated leukocytes count i n urine sediment (number/area)Ordered By: Myron Sullivan on 05-22-2022 WBC Auto (Urine sed) [#/Area] 3-4 [HPF] 0-4 [facility] Bilirubin Test strip Ql (U)O rdered By: Myron Sullivan on 05-22-2022 Bilirubin Ql (U) Negative Negative [facility] Blood Cultureon 05-22-2022 Bacteria identified Cx Nom (Bld) NO GROWTH 5 DAYS PERFORMED BY: [place] [address] PATHOLOGIST GARMENT PRESSER SCARLETT MARIN M.D. Normal [facility] Comment on above: Performed By: #### L ACTJULIO CESAR CANSECOLD #### [address] Blood hemoglobin measurement (mass/volume)Ordered By: Myron Sullivan on 05-22-2022 Hemoglobin (Bld) [Mass/Vol] 10.2 g/dL 11.8-15.4 [facility] COVID-19 Antigenon 2 COVID-19 Antigen Healthcare Worker?: N Reference Range: Negative Negative results, from patients with symptom onset beyond five days, should be treated as presumptive and confirmation with a molecular assay, if necessary, for patient management, may be performed. Negative results do not rule out COVID-19 and should not be used as the sole basis for treatment or patient management decisions, including infection control decisions. Negative results should be considered in the context of a patient's recent exposures, history and the presence of clinical signs and symptoms consistent with COVID-19. The Janine SARS Antigen SHAQ does not differentiate between SARS-CoV and SARS-CoV-2. This test was developed and its performance characteristic determined by [employer] and validated at [facility]. This test has not been FDA cleared or approved. This test has been authorized by FDA under an Emergency Use Authorization (EUA). This test has been validated in accordance with the FDA's Guidance Document (Policy for Diagnostics Testing in Laboratories Certified to Perform High Complexity Testing under CLIA prior to Emergency Use Authorization for Coronavirus Disease-2019 during the Public Health Emergency) issued on February 03, 2020. This test is only authorized for the duration of time the declaration that circumstances exist justifying the authorization of the emergency use of in vitro diagnostic tests for detection of SARS-CoV-2 virus and/or diagnosis of COVID-19 infection under section 564(b)(1) of the Act, 21 U.S.C. 360bbb-3(b)(1), unless the authorization is terminated or revoked sooner. SARS-CoV+SARS-CoV-2 (COVID-19) Ag [Presence] in Respiratory specimen by Rapid immunoassay Negative for SARS Antigen by [facility] PERFORMED BY: [place] [address] PATHOLOGIST GARMENT PRESSER SCARLETT MARIN M.D. Normal [facility] Comment on above: Performed By: #### C OVID-19 JANINE, SOFIANEG #### [address] COVID-19 SOFIAOrdered By: Alejandro Shaikh on 05-22-2022 SARS-CoV+SARS-CoV-2 (COVID-19) Ag IA.rapid Ql (Resp) Negative Negative [facility] Comment on above: This is a duplicate Janine SARS Antigen (SHAQ) result to be used for statistical tracking purpose only. CT abdomen pelvis w wallace CT abdomen pelvis w con [facility] [place] [address] [place] [address] CT Scan Report Signed Patient: Tootie Nicole MR#: [id number] 0 : 1975 Acct:[id number] Age/Sex: 46 / F ADM Date: 05/22/22 Loc: ER Room: Type: [facility] ER Attending Dr: Copies to: Brady Shaikh DO Ordering Provider: Brady Shaikh DO Date of Service: 05/22/22 CT/CT abdomen pelvis w con: LLQ PAIN CT abdomen pelvis w con 05/22/2022 8:11 AM SIGNS AND SYMPTOMS: LLQ PAIN, recent hysterectomy TECHNIQUE: Multidetector ct axial images of the abdomen and pelvis were obtained with IV contrast. Multiplanar reformats were performed and reviewed to further define anatomy and possible pathology. CT was performed with one or more of the following dose reduction techniques: Automated exposure control, adjustment of the mA and/or kV according to patient size, or use of iterative reconstruction technique. COMPARISON: None. FINDINGS: Lower Chest: There is dependent atelectasis in the lung bases. ABDOMEN: Liver: There is mild hypoattenuation of the liver parenchyma suggesting fatty infiltration. Bile Ducts: Normal caliber. Gallbladder: No calcified gallstones. Normal caliber wall. Pancreas: Within normal limits. Spleen: Within normal limits. Adrenals: Within normal limits. Kidneys: There is a tiny simple cyst in the left renal cortex requiring no further follow-up. Pelvis: Reproductive Organs: No pelvic masses. Ureters: Within normal limits. Bladder: Within normal limits. Bowel: Surgical anastomosis is noted in the pelvis. There is no evidence of bowel obstruction. Mesenteric Lymph Nodes: No enlarged mesenteric lymph nodes. Peritoneum: There are collections overlying the bladder to the right of midline and adjacent to the bladder slightly inferiorly to the left of midline measuring 6.6 cm and 7.3 cm in greatest dimension. These are suspicious for postsurgical abscesses. Vessels: Atherosclerotic changes are noted in the common iliac arteries. Retroperitoneum: Within normal limits. Abdominal Wall: Postsurgical changes are noted in the lower anterior abdominal wall presumably relating to recent hysterectomy. There is a gas containing collection in the anterior abdominal wall slightly to the left of midline measuring 1.6 x 4.0 cm in greatest axial dimension. Bones: Degenerative changes are noted in the thoracolumbar spine. CT/CT abdomen pelvis w con IMPRESSION: There are collections overlying the bladder to the right of midline and adjacent to the bladder slightly inferiorly to the left of midline measuring 6.6 cm and 7.3 cm in greatest dimension. These are suspicious for postsurgical abscesses. There is a gas containing collection in the anterior abdominal wall slightly to the left of midline measuring 1.6 x 4.0 cm in greatest axial dimension. There is evidence of prior hysterectomy. Impression dictated by: Yajaira Goodson M.D.05/22/2022 8:24 AM Dictation Location: [place] [address] Transcribed By: JIMBO 05/22/22823 Dictated By: Yajaira Goodson II, MD 05/22/22813 Signed By: 05/22/22823 Normal [facility] Color Auto (U)Ordered By: Elsy Sullivan on 05-22-2022 Color (U) Yellow Yellow [facility] Comprehensive Metabolic Pane skyler 05-22-2022 Albumin [Mass/Vol] 3.2 g/dL Normal 3.2-5.5 [facility] Comment on above: Performed By: #### C BCNO, CMP, LIPASE, ADDONUAPLUS ####[facility] [place] [address] [facility] Albumin/Globulin [Mass ratio] 1.0 {ratio} Normal [facility] Comment on above: Performed By: #### C BCNO, CMP, LIPASE, ADDONUAPLUS ####[facility] [place] [address] [facility] ALP [Catalytic activity/Vol] 44 U/L Normal 32-92 [facility] Comment on above: Performed By: #### C BCNO, CMP, LIPASE, ADDONUAPLUS ####[facility] [id number] [place] [address] [place] ALT [Catalytic activity/Vol] 22 U/L Normal 10-60 [facility] Comment on above: Performed By: #### C BCNO, CMP, LIPASE, ADDONUAPLUS ####[facility] [id number] [place] [address] [place] AST [Catalytic activity/Vol] 19 U/L Normal 10-42 [facility] Comment on above: Performed By: #### C BCNO, CMP, LIPASE, ADDONUAPLUS ####[place] [id number] [facility] Bilirubin [Mass/Vol] 0.6 mg/dL Normal 0.3-1.2 [facility] Comment on above: Performed By: #### C BCNO, CMP, LIPASE, ADDONUAPLUS ####[place] [id number] [facility] Calcium [Mass/Vol] 9.2 mg/dL Normal 8.2-10.2 [facility] Comment on above: Performed By: #### C BCNO, CMP, LIPASE, ADDONUAPLUS ####[address] Chloride [Moles/Vol] 104 mmol/L Normal 95-114 [facility] Comment on above: Performed By: #### C BCNO, CMP, LIPASE, ADDONUAPLUS ####[place] [id number] [facility] CO2 [Moles/Vol] 23.0 mmol/L Normal 22.0-30.0 [facility] Comment on above: Performed By: #### C BCNO, CMP, LIPASE, ADDONUAPLUS ####[place] [id number] [facility] Creatinine [Mass/Vol] 0.56 mg/dL Normal 0.44-1.03 [facility] Comment on above: Performed By: #### C BCNO, CMP, LIPASE, ADDONUAPLUS ####[place] [id number] [facility] Estimated GFR ( Padmini > 60 [facility] Comment on above: Result Comment: GFR estimated reference range: According to KDOQI guidelines, <60 ml/min/1.73m2 is sufficient to diagnose a patient with chronic kidney disease. Performed By: #### C BCNO, CMP, LIPASE, ADDONUAPLUS ####[place] [id number] [facility] Estimated GFR (Non- Am > 60 [facility] Comment on above: Performed By: #### C BCNO, CMP, LIPASE, ADDONUAPLUS ####[place] [address] [place] [address] [facility] Globulin (S) [Mass/Vol] 3.3 g/dL Normal [facility] Comment on above: Performed By: #### C BCNO, CMP, LIPASE, ADDONUAPLUS ####[place] [address] [place] [id number] [facility] Glucose [Mass/Vol] 104 mg/dL High 70-100 [facility] Comment on above: Result Comment: [facility] Glucose Reference Range is dependent on time and content of last meal. Glucose of more than 200 mg/dL in a nonstressed, ambulatory subject supports the diagnosis of Diabetes Mellitus. ADA recommended reference range Performed By: #### C BCNO, CMP, LIPASE, ADDONUAPLUS ####[address] Potassium [Moles/Vol] 3.7 mmol/L Normal 3.5-5.1 [facility] Comment on above: Performed By: #### C BCNO, CMP, LIPASE, ADDONUAPLUS ####[address] Protein [Mass/Vol] 6.5 g/dL Normal 6.1-7.9 [facility] Comment on above: Performed By: #### C BCNO, CMP, LIPASE, ADDONUAPLUS ####[place] [id number] [facility] Sodium [Moles/Vol] 136 mmol/L Normal 136-146 [facility] Comment on above: Performed By: #### C BCNO, CMP, LIPASE, ADDONUAPLUS ####[place] [id number] [facility] Urea nitrogen [Mass/Vol] 10 mg/dL Normal 9-23 [facility] Comment on above: Performed By: #### C BCNO, CMP, LIPASE, ADDONUAPLUS ####[place] [id number] [facility] Creatinine and Glomerular fi ltration rate.predicted panel (S/P/Bld)Ordered By: Myron Sullivan on 05-22-2022 Creatinine [Mass/Vol] 0.56 mg/dL 0.44-1.03 [facility] Dipstick and Microscopicon 0 05-22-2022 Appearance (U) Clear Normal Clear [facility] Comment on above: Order Comment: Name Collection Type:: Collection Method Unknown Performed By: #### C BCNO, CMP, LIPASE, ADDONUAPLUS ####[address] [address] [facility] Bacteria,Urine None Seen Normal None Seen [facility] Comment on above: Order Comment: Name Collection Type:: Collection Method Unknown Performed By: #### C BCNO, CMP, LIPASE, ADDONUAPLUS ####[address] [address] [facility] Bilirubin,Urine Negative Normal Negative [facility] Comment on above: Order Comment: Name Collection Type:: Collection Method Unknown Performed By: #### C BCNO, CMP, LIPASE, ADDONUAPLUS ####[address] [address] [facility] Color (U) Yellow Normal Yellow [facility] Comment on above: Order Comment: Name Collection Type:: Collection Method Unknown Performed By: #### C BCNO, CMP, LIPASE, ADDONUAPLUS ####[address] [address] [facility] Glucose Ql (U) Normal Normal Normal [facility] Comment on above: Order Comment: Name Collection Type:: Collection Method Unknown Performed By: #### C BCNO, CMP, LIPASE, ADDONUAPLUS ####[address] [address] [facility] Hyaline Casts,Urine 0-8 Normal 0-8 [facility] Comment on above: Order Comment: Name Collection Type:: Collection Method Unknown Result Comment: PERF ORMED BY: [facility] [address] [place] [address] PATHOLOGIST GARMENT PRESSER SCARLETT MARIN M.D. Performed By: #### C BCNO, CMP, LIPASE, ADDONUAPLUS ####[place] [address] [place] [address] [facility] Ketones Ql (U) Negative Normal Negative [facility] Comment on above: Order Comment: Name Collection Type:: Collection Method Unknown Performed By: #### C BCNO, CMP, LIPASE, ADDONUAPLUS ####[address] [address] [facility] Leukocyte esterase Test strip Ql (U) Negative Normal Negative [facility] Comment on above: Order Comment: Name Collection Type:: Collection Method Unknown Performed By: #### C BCNO, CMP, LIPASE, ADDONUAPLUS ####[address] [address] [facility] Nitrite,Urine Negative Normal Negative [facility] Comment on above: Order Comment: Name Collection Type:: Collection Method Unknown Performed By: #### C BCNO, CMP, LIPASE, ADDONUAPLUS ####[place] [id number] [facility] Occult Blood,Urine 2+ High Negative [facility] Comment on above: Order Comment: Name Collection Type:: Collection Method Unknown Result Comment: PERF ORMED BY: [facility] [address] [address] PATHOLOGIST GARMENT PRESSER SCARLETT MARIN M.D. Performed By: #### C BCNO, CMP, LIPASE, ADDONUAPLUS ####[place] [id number] [facility] pH (U) 5.5 [pH] Normal 5.0-9.0 [facility] Comment on above: Order Comment: Name Collection Type:: Collection Method Unknown Performed By: #### C BCNO, CMP, LIPASE, ADDONUAPLUS ####[place] [id number] [facility] Protein,Urine Negative Normal Negative [facility] Comment on above: Order Comment: Name Collection Type:: Collection Method Unknown Performed By: #### C BCNO, CMP, LIPASE, ADDONUAPLUS ####[place] [id number] [facility] RBC,Urine 3-4 Normal 0-4 [facility] Comment on above: Order Comment: Name Collection Type:: Collection Method Unknown Performed By: #### C BCNO, CMP, LIPASE, ADDONUAPLUS ####[address] Specificy [place],Urine 1.016 Normal 1.001-1.030 [facility] Comment on above: Order Comment: Name Collection Type:: Collection Method Unknown Performed By: #### C BCNO, CMP, LIPASE, ADDONUAPLUS ####[place] [id number] [facility] Squamous Epithelial Cell,Urine 5-9 High 0-2 [facility] Comment on above: Order Comment: Name Collection Type:: Collection Method Unknown Performed By: #### C BCNO, CMP, LIPASE, ADDONUAPLUS ####[place] [id number] [facility] Urobilinogen,Urine Normal Normal Normal [facility] Comment on above: Order Comment: Name Collection Type:: Collection Method Unknown Performed By: #### C BCNO, CMP, LIPASE, ADDONUAPLUS ####[place] [id number] [facility] WBC,Urine 3-4 Normal 0-4 [facility] Comment on above: Order Comment: Name Collection Type:: Collection Method Unknown Performed By: #### C BCNO, CMP, LIPASE, ADDONUAPLUS ####[place] [id number] [facility] Erythrocyte distribution wid th Auto (RBC) [Ratio]Ordered By: Myron Sullivan on 05-22-2022 Erythrocyte distribution width (RBC) [Ratio] 12.7 % 11.9-15.3 [facility] Estimated glomerular filtrat ion rate (GFR) non- AmericanOrdered By: Myron Sullivan on 05-22-2022 GFR/1.73 sq M.predicted among non-blacks MDRD (S/P/Bld) [Vol rate/Area] > 60 mL/Min [facility] Globulin Calc (S) [Mass/Vol] Ordered By: Myron Sullivan on 05-22-2022 Globulin (S) [Mass/Vol] 3.3 g/dL [facility] Hematocrit Auto (Bld) [Volum e fraction]Ordered By: Myron Sullivan on 05-22-2022 Hematocrit (Bld) [Volume fraction] 30.1 % 34.0-46.4 [facility] Hemogram CBC Without Diffon 05-22-2022 Erythrocyte distribution width (RBC) [Ratio] 12.7 % Normal 11.9-15.3 [facility] Comment on above: Performed By: #### C BCNO, CMP, LIPASE, ADDONUAPLUS ####[address] Hematocrit (Bld) [Volume fraction] 30.1 % Low 34.0-46.4 [facility] Comment on above: Performed By: #### C BCNO, CMP, LIPASE, ADDONUAPLUS ####[address] Hemoglobin (Bld) [Mass/Vol] 10.2 g/dL Low 11.8-15.4 [facility] Comment on above: Performed By: #### C BCNO, CMP, LIPASE, ADDONUAPLUS ####[address] MCH (RBC) [Entitic mass] 29.7 pg Normal 24.7-34.3 [facility] Comment on above: Performed By: #### C BCNO, CMP, LIPASE, ADDONUAPLUS ####[address] MCV (RBC) [Entitic vol] 87.8 fL Normal 80-100 [facility] Comment on above: Performed By: #### C BCNO, CMP, LIPASE, ADDONUAPLUS ####[address] Mean Corpuscular HGB Conc 33.8 g/dL Normal 32.0-35.0 [facility] Comment on above: Performed By: #### C BCNO, CMP, LIPASE, ADDONUAPLUS ####[address] Platelet mean volume (Bld) [Entitic vol] 6.9 fL Normal 6.3-10.7 [facility] Comment on above: Result Comment: PERF ORMED BY: [facility] [address] [place] [address] PATHOLOGIST GARMENT PRESSER SCARLETT MARIN M.D. Performed By: #### C BCNO, CMP, LIPASE, ADDONUAPLUS ####[place] [address] Platelets (Bld) [#/Vol] 576 10*3/uL High 150-450 [facility] Comment on above: Performed By: #### C BCNO, CMP, LIPASE, ADDONUAPLUS ####[place] [address] RBC (Bld) [#/Vol] 3.43 10*6/uL Low 3.60-5.00 [facility] Comment on above: Performed By: #### C BCNO, CMP, LIPASE, ADDONUAPLUS ####[address] WBC (Bld) [#/Vol] 14.4 10*3/uL High 3.8-11.6 [facility] Comment on above: Performed By: #### C BCNO, CMP, LIPASE, ADDONUAPLUS ####[address] Ketones Auto test strip (U) [Mass/Vol]Ordered By: Myron Sullivan on 05-22-2022 Ketones (U) [Mass/Vol] Negative Negative [facility] Laboratory - Chemistry and C hemistry - challengeOrdered By: Myron Sullivan on 05-22-2022 Lipase [Catalytic activity/Vol] 23.0 U/L 22-51 [facility] Laboratory - UrinalysisOrder ed By: Myron Sullivan on 05-22-2022 Hyaline casts LM Ql (Urine sed) 0-8 [LPF] 0-8 [facility] Lactic Acidon 05-22-2022 Lactate [Moles/Vol] 0.7 mmol/L Normal 0.5-2.2 [facility] Comment on above: Result Comment: PERF ORMED BY: [facility] [address] [place] [address] PATHOLOGIST GARMENT PRESSER SCARLETT MARIN M.D. Performed By: #### L ACTIC, CUBLD #### [facility] [address] [place] [id number] [facility] Lipaseon 05-22-2022 Lipase [Catalytic activity/Vol] 23.0 U/L Normal 22-51 [facility] Comment on above: Result Comment: PERF ORMED BY: [facility] [address] [place] [address] PATHOLOGIST GARMENT PRESSER SCARLETT MARIN M.D. Performed By: #### C BCNO, CMP, LIPASE, ADDONUAPLUS ####[facility] [address] [place] [id number] [facility] MCH Auto (RBC) [Entitic mass ]Ordered By: Myron Sullivan on 05-22-2022 MCH (RBC) [Entitic mass] 29.7 pg 24.7-34.3 [facility] MCHC Auto (RBC) [Mass/Vol]Or dered By: Myron Sullivan on 05-22-2022 MCHC (RBC) [Mass/Vol] 33.8 g/dL 32.0-35.0 [facility] MCV Auto (RBC) [Entitic vol] Ordered By: Myron Sullivan on 05-22-2022 MCV (RBC) [Entitic vol] 87.8 fL 80-100 [facility] Nitrite Test strip Ql (U)Ord ered By: Myron Sullivan on 05-22-2022 Nitrite Ql (U) Negative Negative [facility] No Panel InformationOrdered By: Myron Sullivan on 05-22-2022 Estimated GFR () > 60 mL/Min [facility] Comment on above: GFR estimated refere nce range: According to KDOQI guidelines, <60 ml/min/1.73m2 is sufficient to diagnose a patient with chronic kidney disease. Pharmacy Creatinine Clearance (Chem N/A [facility] No Panel InformationOrdered By: Brady Shaikh on 05-22-2022 SARS Antigen (LFIA) [facility] Platelet mean volume Auto (B ld) [Entitic vol]Ordered By: Myron Sullivan on 05-22-2022 Platelet mean volume (Bld) [Entitic vol] 6.9 fL 6.3-10.7 [facility] Platelets Auto (Bld) [#/Vol] Ordered By: Myron Sullivan on 05-22-2022 Platelets (Bld) [#/Vol] 576 10*3/uL 150-450 [facility] Protein Auto test strip (U) [Mass/Vol]Ordered By: Myron Sullivan on 05-22-2022 Protein (U) [Mass/Vol] Negative Negative [facility] Protein [Mass/volume] in Ser um or PlasmaOrdered By: Myron Sullivan on 05-22-2022 Protein [Mass/Vol] 6.5 g/dL 6.1-7.9 [facility] RBC Auto (Bld) [#/Vol]Ordere d By: Myron Sullivan on 05-22-2022 RBC (Bld) [#/Vol] 3.43 10*6/uL 3.60-5.00 [facility] Serum or plasma alanine kramer otransferase measurement without P-5'-P (enzymatic activiOrdered By: Myron Sullivan on 05-22-2022 ALT No additional P-5'-P [Catalytic activity/Vol] 22 U/L 10-60 [facility] Serum or plasma albumin/glob ulin mass ratioOrdered By: Myron Sullivan on 05-22-2022 Albumin/Globulin [Mass ratio] 1.0 {ratio} [facility] Serum or plasma alkaline rui sphatase measurement (enzymatic activity/volume)Ordered By: Myron Sullivan on 05-22-2022 ALP [Catalytic activity/Vol] 44 U/L 32-92 [facility] Serum or plasma aspartate am inotransferase measurement (enzymatic activity/volume)Ordered By: Myron Sullivan on 05-22-2022 AST [Catalytic activity/Vol] 19 U/L 10-42 [facility] Serum or plasma calcium pio urement (mass/volume)Ordered By: Myron Sullivan on 05-22-2022 Calcium [Mass/Vol] 9.2 mg/dL 8.2-10.2 [facility] Serum or plasma chloride mary surement (moles/volume)Ordered By: Myron Sullivan on 05-22-2022 Chloride [Moles/Vol] 104 mmol/L 95-114 [facility] Serum or plasma glucose pio urement (mass/volume)Ordered By: Myron Sullivan on 05-22-2022 Glucose [Mass/Vol] 104 mg/dL 70-100 [facility] Comment on above: ADA recommended refe rence range Random Glucose Reference Range is dependent on time and content of last meal. Glucose of more than 200 mg/dL in a nonstressed, ambulatory subject supports the diagnosis of Diabetes Mellitus. Serum or plasma potassium me asurement (moles/volume)Ordered By: Myron Sullivan on 05-22-2022 Potassium [Moles/Vol] 3.7 mmol/L 3.5-5.1 [facility] Serum or plasma sodium measu rement (moles/volume)Ordered By: Myron Sullivan on 05-22-2022 Sodium [Moles/Vol] 136 mmol/L 136-146 [facility] Serum or plasma total biliru bin measurement (mass/volume)Ordered By: Myron Sullivan on 05-22-2022 Bilirubin [Mass/Vol] 0.6 mg/dL 0.3-1.2 [facility] Serum or plasma total carbon dioxide measurement (moles/volume)Ordered By: Myron Sullivan on 05-22-2022 CO2 [Moles/Vol] 23.0 mmol/L 22.0-30.0 [facility] Serum or plasma urea nitroge n measurement (mass/volume)Ordered By: Myron Sullivan on 05-22-2022 Urea nitrogen [Mass/Vol] 10 mg/dL 9-23 [facility] Janine Ag Negativeon 05-22-20 22 Janine Ag Negative Negative Normal Negative [facility] Comment on above: Result Comment: This is a duplicate Janine SARS Antigen (SHAQ) result to be used for statistical tracking purpose only. PERFORMED BY: [facility] [address] [place] [address] PATHOLOGIST GARMENT PRESSER SCARLETT MARIN M.D. Performed By: #### C OVID-19 JANINE, SOFIANEG ####[facility] [place] [address] [facility] Specific gravity Auto test s trip (U) [Rel density]Ordered By: Myron Sullivan on 05-22-2022 Specific gravity (U) [Rel density] 1.016 1.001-1.030 [facility] Squamous epithelial cells de tection in urine sediment by light microscopyOrdered By: Myron Sullivan on 05-22-2022 Epithelial cells.squamous LM Ql (Urine sed) 5-9 [HPF] 0-2 [facility] Urine bacteria detection by automated methodOrdered By: Myron Sullivan on 05-22-2022 Bacteria Auto Ql (U) None seen None Seen [facility] Urine clarity by refractomet ry automatedOrdered By: Myron Sullivan on 05-22-2022 Clarity Refractometry automated (U) Clear Clear [facility] Urine glucose measurement by automated test strip (mass/volume)Ordered By: Myron Sullivan on 05-22-2022 Glucose Auto test strip (U) [Mass/Vol] Normal mg/dL Normal [facility] Urine hemoglobin detection b y automated test stripOrdered By: Myron Sullivan on 05-22-2022 Hemoglobin Auto test strip Ql (U) 2+ Negative [facility] Urine lactic acid measuremen tOrdered By: Brady Shaikh on 05-22-2022 Lactate (U) [Moles/Vol] 0.7 mmol/L 0.5-2.2 [facility] Urine leukocyte esterase det ection by automated test stripOrdered By: Myron Sullivan on 05-22-2022 Leukocyte esterase Auto test strip Ql (U) Negative Negative [facility] Urobilinogen Auto test strip (U) [Mass/Vol]Ordered By: Myron Sullivan on 05-22-2022 Urobilinogen (U) [Mass/Vol] Normal mg/dL Normal [facility] WBC Auto (Bld) [#/Vol]Ordere d By: Myron Sullivan on 05-22-2022 WBC (Bld) [#/Vol] 14.4 10*3/uL 3.8-11.6 [facility] pH Auto test strip (U)Ordere d By: Myron Sullivan on 05-22-2022 pH (U) 5.5 [pH] 5.0-9.0 [facility] Albumin [Mass/volume] in Ser um or PlasmaOrdered By: PRATEEK HICKS on 05-15-2022 Albumin [Mass/Vol] 3.0 g/dL 3.2-5.5 [facility] Basophils Auto (Bld) [#/Vol] Ordered By: PRATEEK HICKS on 05-15-2022 Basophils (Bld) [#/Vol] 0.1 10*3/uL 0.0-0.2 [facility] Basophils/100 WBC Auto (Bld) Ordered By: PRATEEK HICKS on 05-15-2022 Basophils/100 WBC (Bld) 0.5 % . [facility] Blood hemoglobin measurement (mass/volume)Ordered By: PRATEEK HICKS on 05-15-2022 Hemoglobin (Bld) [Mass/Vol] 9.2 g/dL 11.8-15.4 [facility] Blood leukocytes automated c ount (number/volume)Ordered By: PRATEEK HICKS on 05-15-2022 WBC (Bld) [#/Vol] 11.2 10*3/uL 4.5-11.0 [facility] Complete Blood Count Auto Di ffon 05-15-2022 Basophils (Bld) [#/Vol] 0.1 10*3/uL Normal 0.0-0.2 [facility] Comment on above: Result Comment: PERF ORMED BY: [facility] [address] [place] [address] PATHOLOGIST GARMENT PRESSER SCARLETT MARIN M.D. Performed By: #### C BC, CMP ####[address] Basophils/100 WBC (Bld) 0.5 % Normal . [facility] Comment on above: Performed By: #### C BC, CMP ####[place] [address] [place] [id number] [facility] Eosinophils (Bld) [#/Vol] 0.4 10*3/uL Normal 0.0-0.45 [facility] Comment on above: Performed By: #### C BC, CMP ####[address] Eosinophils/100 WBC (Bld) 3.7 % Normal . [facility] Comment on above: Performed By: #### C JOSE JUAN, CMP ####[address] Erythrocyte distribution width (RBC) [Ratio] 13.2 % Normal 11.9-15.3 [facility] Comment on above: Performed By: #### C BC, CMP ####[address] Hematocrit (Bld) [Volume fraction] 27.1 % Low 34.0-46.4 [facility] Comment on above: Performed By: #### C JOSE JUAN, CMP ####[address] Hemoglobin (Bld) [Mass/Vol] 9.2 g/dL Low 11.8-15.4 [facility] Comment on above: Performed By: #### C JOSE JUAN, CMP ####[address] Lymphocytes (Bld) [#/Vol] 2.3 10*3/uL Normal 1.00-4.8 [facility] Comment on above: Performed By: #### C JOSE JUAN, CMP ####[address] Lymphocytes/100 WBC (Bld) 20.4 % Normal . [facility] Comment on above: Performed By: #### C JOSE JUAN, CMP ####[address] MCH (RBC) [Entitic mass] 30.2 pg Normal 24.7-34.3 [facility] Comment on above: Performed By: #### C JOSE JUAN, CMP ####[place] [id number] [facility] MCV (RBC) [Entitic vol] 89.2 fL Normal 80-100 [facility] Comment on above: Performed By: #### C BC, CMP ####[address] Mean Corpuscular HGB Conc 33.9 g/dL Normal 32.0-35.0 [facility] Comment on above: Performed By: #### C BC, CMP ####[place] [id number] [facility] Monocytes (Bld) [#/Vol] 0.7 10*3/uL Normal 0.0-0.8 [facility] Comment on above: Performed By: #### C BC, CMP ####[place] [id number] [facility] Monocytes/100 WBC (Bld) 6.2 % Normal . [facility] Comment on above: Performed By: #### C BC, CMP ####[place] [id number] [facility] Neutrophils (Bld) [#/Vol] 7.7 10*3/uL Normal 1.8-7.7 [facility] Comment on above: Performed By: #### C BC, CMP ####[place] [id number] [facility] Neutrophils/100 WBC (Bld) 69.2 % Normal . [facility] Comment on above: Performed By: #### C BC, CMP ####[place] [id number] [facility] Nucleated RBC/100 WBC (Bld) [Ratio] 0.0 % Normal 0-0.5 [facility] Comment on above: Performed By: #### C BC, CMP ####[place] [id number] [facility] Platelet mean volume (Bld) [Entitic vol] 7.2 fL Normal 6.3-10.7 [facility] Comment on above: Performed By: #### C BC, CMP ####[address] [address] [place] Platelets (Bld) [#/Vol] 371 10*3/uL Normal 150-450 [facility] Comment on above: Performed By: #### C BC, CMP ####[place] [id number] [facility] RBC (Bld) [#/Vol] 3.04 10*6/uL Low 3.60-5.00 [facility] Comment on above: Performed By: #### C BC, CMP ####[address] [address] [facility] WBC (Bld) [#/Vol] 11.2 10*3/uL High 4.5-11.0 [facility] Comment on above: Performed By: #### C BC, CMP ####[address] [address] [facility] Comprehensive Metabolic Pane skyler 05-15-2022 Albumin [Mass/Vol] 3.0 g/dL Low 3.2-5.5 [facility] Comment on above: Performed By: #### C JOSE JUAN, CMP ####[place] [id number] [facility] Albumin/Globulin [Mass ratio] 1.1 {ratio} Normal [facility] Comment on above: Performed By: #### C BC, CMP ####[address] [address] [facility] ALP [Catalytic activity/Vol] 30 U/L Low 32-92 [facility] Comment on above: Performed By: #### C BC, CMP ####[address] [address] [facility] ALT [Catalytic activity/Vol] 16 U/L Normal 10-60 [facility] Comment on above: Performed By: #### C BC, CMP ####[address] [address] [facility] AST [Catalytic activity/Vol] 17 U/L Normal 10-42 [facility] Comment on above: Performed By: #### C BC, CMP ####[place] [id number] [facility] Bilirubin [Mass/Vol] 0.7 mg/dL Normal 0.3-1.2 [facility] Comment on above: Performed By: #### C BC, CMP ####[place] [id number] [facility] Calcium [Mass/Vol] 8.5 mg/dL Normal 8.2-10.2 [facility] Comment on above: Performed By: #### C BC, CMP ####[place] [id number] [facility] Chloride [Moles/Vol] 105 mmol/L Normal 95-114 [facility] Comment on above: Performed By: #### C BC, CMP ####[place] [id number] [facility] CO2 [Moles/Vol] 25.8 mmol/L Normal 22.0-30.0 [facility] Comment on above: Performed By: #### C BC, CMP ####[address] Creatinine [Mass/Vol] 0.46 mg/dL Normal 0.44-1.03 [facility] Comment on above: Performed By: #### C BC, CMP ####[address] Creatinine Clr Calc Pharmacy 159.66 [facility] Comment on above: Result Comment: PERF ORMED BY: [facility] [address] [place] [address] PATHOLOGIST GARMENT PRESSER SCARLETT MARIN M.D. Performed By: #### C BC, CMP ####[place] [id number] [facility] Estimated GFR ( Padmini > 60 [facility] Comment on above: Result Comment: GFR estimated reference range: According to KDOQI guidelines, <60 ml/min/1.73m2 is sufficient to diagnose a patient with chronic kidney disease. Performed By: #### C BC, CMP ####[place] [id number] [facility] Estimated GFR (Non- Am > 60 [facility] Comment on above: Performed By: #### C BC, CMP ####[place] [id number] [facility] Globulin (S) [Mass/Vol] 2.7 g/dL [facility] Comment on above: Performed By: #### C BC, CMP ####[place] [address] [place] [address] [facility] Glucose [Mass/Vol] 91 mg/dL Normal 70-100 [facility] Comment on above: Result Comment: [place] Glucose Reference Range is dependent on time and content of last meal. Glucose of more than 200 mg/dL in a nonstressed, ambulatory subject supports the diagnosis of Diabetes Mellitus. ADA recommended reference range Performed By: #### C BC, CMP ####[place] [address] [place] [address] [facility] Potassium [Moles/Vol] 3.4 mmol/L Low 3.5-5.1 [facility] Comment on above: Performed By: #### C JOSE JUAN, CMP ####[place] [address] [place] [phone] [facility] Protein [Mass/Vol] 5.7 g/dL Low 6.1-7.9 [facility] Comment on above: Performed By: #### C JOSE JUAN, CMP ####[place] [id number] [facility] Sodium [Moles/Vol] 137 mmol/L Normal 136-146 [facility] Comment on above: Performed By: #### C JOSE JUAN, CMP ####[place] [address] [place] [phone] [facility] Urea nitrogen [Mass/Vol] 6 mg/dL Low 9-23 [facility] Comment on above: Performed By: #### C JOSE JUAN, CMP ####[place] [id number] [facility] Creatinine and Glomerular fi ltration rate.predicted panel (S/P/Bld)Ordered By: PRATEEK HICKS on 05-15-2022 Creatinine [Mass/Vol] 0.46 mg/dL 0.44-1.03 [facility] Eosinophils Auto (Bld) [#/Vo l]Ordered By: PRATEEK HICKS on 05-15-2022 Eosinophils (Bld) [#/Vol] 0.4 10*3/uL 0.0-0.45 [facility] Eosinophils/100 WBC Auto (Bl d)Ordered By: PRATEEK HICKS on 05-15-2022 Eosinophils/100 WBC (Bld) 3.7 % . [facility] Erythrocyte distribution wid th Auto (RBC) [Ratio]Ordered By: PRATEEK HICKS on 05-15-2022 Erythrocyte distribution width (RBC) [Ratio] 13.2 % 11.9-15.3 [facility] Estimated glomerular filtrat ion rate (GFR) non- AmericanOrdered By: PRATEEK HICKS on 05-15-2022 GFR/1.73 sq M.predicted among non-blacks MDRD (S/P/Bld) [Vol rate/Area] > 60 mL/Min [facility] Globulin Calc (S) [Mass/Vol] Ordered By: PRATEEK HICKS on 05-15-2022 Globulin (S) [Mass/Vol] 2.7 g/dL [facility] Hematocrit Auto (Bld) [Volum e fraction]Ordered By: PRATEEK HICKS on 05-15-2022 Hematocrit (Bld) [Volume fraction] 27.1 % 34.0-46.4 [facility] Laboratory - Hematology and Cell countsOrdered By: PRATEEK HICKS on 05-15-2022 Nucleated RBC/100 WBC (Bld) [Ratio] 0.0 % 0-0.5 [facility] Lymphocytes Auto (Bld) [#/Vo l]Ordered By: PRATEEK HICKS on 05-15-2022 Lymphocytes (Bld) [#/Vol] 2.3 10*3/uL 1.00-4.8 [facility] Lymphocytes/100 WBC Auto (Bl d)Ordered By: PRATEEK HICKS on 05-15-2022 Lymphocytes/100 WBC (Bld) 20.4 % . [facility] MCH Auto (RBC) [Entitic mass ]Ordered By: PRATEEK HICKS on 05-15-2022 MCH (RBC) [Entitic mass] 30.2 pg 24.7-34.3 [facility] MCHC Auto (RBC) [Mass/Vol]Or dered By: PRATEEK HICKS on 05-15-2022 MCHC (RBC) [Mass/Vol] 33.9 g/dL 32.0-35.0 [facility] MCV Auto (RBC) [Entitic vol] Ordered By: PRATEEK HICKS on 05-15-2022 MCV (RBC) [Entitic vol] 89.2 fL 80-100 [facility] Monocytes Auto (Bld) [#/Vol] Ordered By: PRATEEK HICKS on 05-15-2022 Monocytes (Bld) [#/Vol] 0.7 10*3/uL 0.0-0.8 [facility] Monocytes/100 WBC Auto (Bld) Ordered By: PRATEEK HICKS on 05-15-2022 Monocytes/100 WBC (Bld) 6.2 % . [facility] Neutrophils Auto (Bld) [#/Vo l]Ordered By: PRATEEK HICKS on 05-15-2022 Neutrophils (Bld) [#/Vol] 7.7 10*3/uL 1.8-7.7 [facility] Neutrophils/100 WBC Auto (Bl d)Ordered By: PRATEEK HICKS on 05-15-2022 Neutrophils/100 WBC (Bld) 69.2 % . [facility] No Panel InformationOrdered By: PRATEEK HICKS on 05-15-2022 Estimated GFR () > 60 mL/Min [facility] Comment on above: GFR estimated refere nce range: According to KDOQI guidelines, <60 ml/min/1.73m2 is sufficient to diagnose a patient with chronic kidney disease. Pharmacy Creatinine Clearance (Chem 159.66 [facility] Platelet mean volume Auto (B ld) [Entitic vol]Ordered By: PRATEEK HICKS on 05-15-2022 Platelet mean volume (Bld) [Entitic vol] 7.2 fL 6.3-10.7 [facility] Platelets Auto (Bld) [#/Vol] Ordered By: PRATEEK HICKS on 05-15-2022 Platelets (Bld) [#/Vol] 371 10*3/uL 150-450 [facility] Protein [Mass/volume] in Ser um or PlasmaOrdered By: PRATEEK HICKS on 05-15-2022 Protein [Mass/Vol] 5.7 g/dL 6.1-7.9 [facility] RBC Auto (Bld) [#/Vol]Ordere d By: PRATEEK HICKS on 05-15-2022 RBC (Bld) [#/Vol] 3.04 10*6/uL 3.60-5.00 [facility] Serum or plasma alanine kramer otransferase measurement without P-5'-P (enzymatic activiOrdered By: PRATEEK HICKS on 05-15-2022 ALT No additional P-5'-P [Catalytic activity/Vol] 16 U/L 10-60 [facility] Serum or plasma albumin/glob ulin mass ratioOrdered By: PRATEEK HICKS on 05-15-2022 Albumin/Globulin [Mass ratio] 1.1 {ratio} [facility] Serum or plasma alkaline rui sphatase measurement (enzymatic activity/volume)Ordered By: PRATEEK HICKS on 05-15-2022 ALP [Catalytic activity/Vol] 30 U/L 32-92 [facility] Serum or plasma aspartate am inotransferase measurement (enzymatic activity/volume)Ordered By: PRATEEK HICKS on 05-15-2022 AST [Catalytic activity/Vol] 17 U/L 10-42 [facility] Serum or plasma calcium pio urement (mass/volume)Ordered By: PRATEEK HICKS on 05-15-2022 Calcium [Mass/Vol] 8.5 mg/dL 8.2-10.2 [facility] Serum or plasma chloride mary surement (moles/volume)Ordered By: PRATEEK HICKS on 05-15-2022 Chloride [Moles/Vol] 105 mmol/L 95-114 [facility] Serum or plasma glucose pio urement (mass/volume)Ordered By: PRATEEK HICKS on 05-15-2022 Glucose [Mass/Vol] 91 mg/dL 70-100 [facility] Comment on above: ADA recommended refe rence range Random Glucose Reference Range is dependent on time and content of last meal. Glucose of more than 200 mg/dL in a nonstressed, ambulatory subject supports the diagnosis of Diabetes Mellitus. Serum or plasma potassium me asurement (moles/volume)Ordered By: PRATEEK HICKS on 05-15-2022 Potassium [Moles/Vol] 3.4 mmol/L 3.5-5.1 [facility] Serum or plasma sodium measu rement (moles/volume)Ordered By: PRATEEK HICKS on 05-15-2022 Sodium [Moles/Vol] 137 mmol/L 136-146 [facility] Serum or plasma total biliru bin measurement (mass/volume)Ordered By: PRATEEK HICKS on 05-15-2022 Bilirubin [Mass/Vol] 0.7 mg/dL 0.3-1.2 [facility] Serum or plasma total carbon dioxide measurement (moles/volume)Ordered By: PRATEEK HICKS on 05-15-2022 CO2 [Moles/Vol] 25.8 mmol/L 22.0-30.0 [facility] Serum or plasma urea nitroge n measurement (mass/volume)Ordered By: PRATEEK HICKS on 05-15-2022 Urea nitrogen [Mass/Vol] 6 mg/dL 9- [facility] XR acute abdomen serieson XR acute abdomen series [facility] [place] [address] XRay Report Signed Patient: Tootie Nicole MR#: [id number] 0 : 1975 Acct:[id number] Age/Sex: 46 / F ADM Date: 05/13/22 Loc: Room: [address] [place] [address] Type: ADM IN Attending Dr: Prateek Hicks MD Copies to: PRATEEK HICKS MD Ordering Provider: PRATEEK HICKS MD Date of Service: 05/15/22 XR/XR acute abdomen series: decreased bowel sounds postop XR acute abdomen series 05/15/2022 7:46 AM SIGNS AND SYMPTOMS: Abdominal distention PROTOCOL: Frontal radiographs of the chest and abdomen COMPARISON: 12/05/2020 FINDINGS: The trachea is midline. The heart and mediastinal structures are within normal limits. The lung parenchyma is clear. The bony thorax is intact. Vascular calcifications are present in the pelvis. There is a nonobstructive bowel gas pattern. There is a moderate amount stool in the pelvis. XR/XR acute abdomen series IMPRESSION: No acute cardiopulmonary pathology. No bowel obstruction or free air. Impression dictated by: Yajaira Goodson M.D.05/15/2022 8:27 AM Dictation Location: [place] [address] Transcribed By: JIMBO 05/15/22826 Dictated By: Yajaira Goodson II, MD 05/15/22821 Signed By: 05/15/22826 Normal [facility] Complete Blood Count Auto Di ffon 05-14-2022 Basophils (Bld) [#/Vol] 0.0 10*3/uL Normal 0.0-0.2 [facility] Comment on above: Result Comment: PERF ORMED BY: [facility] [address] [place] [id number] PATHOLOGIST GARMENT PRESSER SCARLETT MARIN M.D. Performed By: #### C BC ####[place] [id number] [facility] Basophils/100 WBC (Bld) 0.3 % Normal . [facility] Comment on above: Performed By: #### C BC ####[address] [address] [facility] Eosinophils (Bld) [#/Vol] 0.0 10*3/uL Normal 0.0-0.45 [facility] Comment on above: Performed By: #### C BC ####[place] [id number] [facility] Eosinophils/100 WBC (Bld) 0.3 % Normal . [facility] Comment on above: Performed By: #### C BC ####[place] [id number] [facility] Erythrocyte distribution width (RBC) [Ratio] 12.9 % Normal 11.9-15.3 [facility] Comment on above: Performed By: #### C BC ####[place] [id number] [facility] Hematocrit (Bld) [Volume fraction] 30.0 % Low 34.0-46.4 [facility] Comment on above: Performed By: #### C BC ####[place] [id number] [facility] Hemoglobin (Bld) [Mass/Vol] 9.8 g/dL Low 11.8-15.4 [facility] Comment on above: Performed By: #### C BC ####[address] Lymphocytes (Bld) [#/Vol] 1.9 10*3/uL Normal 1.00-4.8 [facility] Comment on above: Performed By: #### C BC ####[place] [id number] [facility] Lymphocytes/100 WBC (Bld) 13.6 % Normal . [facility] Comment on above: Performed By: #### C BC ####[address] MCH (RBC) [Entitic mass] 29.3 pg Normal 24.7-34.3 [facility] Comment on above: Performed By: #### C BC ####[address] MCV (RBC) [Entitic vol] 89.3 fL Normal 80-100 [facility] Comment on above: Performed By: #### C BC ####[address] Mean Corpuscular HGB Conc 32.8 g/dL Normal 32.0-35.0 [facility] Comment on above: Performed By: #### C BC ####[place] [id number] [facility] Monocytes (Bld) [#/Vol] 0.9 10*3/uL High 0.0-0.8 [facility] Comment on above: Performed By: #### C BC ####[place] [id number] [facility] Monocytes/100 WBC (Bld) 6.3 % Normal . [facility] Comment on above: Performed By: #### C BC ####[place] [id number] [facility] Neutrophils (Bld) [#/Vol] 11.2 10*3/uL High 1.8-7.7 [facility] Comment on above: Performed By: #### C BC ####[place] [address] Neutrophils/100 WBC (Bld) 79.5 % Normal . [facility] Comment on above: Performed By: #### C BC ####[place] [id number] [facility] Nucleated RBC/100 WBC (Bld) [Ratio] 0.1 % Normal 0-0.5 [facility] Comment on above: Performed By: #### C BC ####[address] Platelet mean volume (Bld) [Entitic vol] 7.5 fL Normal 6.3-10.7 [facility] Comment on above: Performed By: #### C BC ####[address] Platelets (Bld) [#/Vol] 366 10*3/uL Normal 150-450 [facility] Comment on above: Performed By: #### C BC ####[address] RBC (Bld) [#/Vol] 3.36 10*6/uL Low 3.60-5.00 [facility] Comment on above: Performed By: #### C BC ####[address] WBC (Bld) [#/Vol] 14.1 10*3/uL High 4.5-11.0 [facility] Comment on above: Performed By: #### C BC ####[place] [id number] [facility] HCG ( test) IA.rapi d Ql (U)Ordered By: VARUN ZABALA on 05-13-2022 HCG ( test) Ql (U) Negative [facility] HCG,Urineon 05-13-2022 Beta HCG ( test) Ql (U) Negative Normal [facility] Comment on above: Result Comment: PERF ORMED BY: [facility] [address] [place] [id number] PATHOLOGIST GARMENT PRESSER SCARLETT MARIN M.D. Performed By: #### U HCG #### [address] 05-13-2022 L Specimen: [id number] Received: 05/13/22 Status: TIA Ricketts Num: [id number] Spec Type: Surgical Subm Dr: PRATEEK HICKS MD Tissues: A Uterus w/ or w/o tubes ovaries except neoplastic or prolap (CERVIX, ISABEL TU Procedures: HE Stain/7, Gross/Micro L5 Patient Age/Sex Location Account Attending Physician Tootie Nicole 46/F 3S [id number] PRATEEK HICKS MD SPEC NUM: [id number] RECD: 05/13/22 STATUS: TIA RICKETTS NUM: [id number] ANGELES: 05/13/22- SUBM DR: PRATEEK HICKS MD ENTERED: 05/13/22 [facility] DR: BAKARI TYPE: Surgical DEPT: S ORDERED: HE Stain/7, Gross/Micro L5 ORDERED: HE Stain/7, Gross/Micro L5 Pathological Diagnosis Uterus, cervix, bilateral fallopian tubes and ovaries, total hysterectomy and bilateral salpingo-oophorectom y: - Proliferative pattern endometrium. - Myometrium with no significant pathology findings. - Serosal surface with focal adhesions. - Cervix with endocervical squamous metaplasia, chronic inflammation and nabothian cysts. - Right ovary with focal remote hemorrhage. - Left ovary with a hemorrhagic luteal cyst. - Bilateral fallopian tubes with post-ligation change and no other significant pathologic findings. Clinical Information Adenomyosis, menorrhagia Gross Description Received labeled with the patient's name and uterus cervix bilateral tubes ovaries is a 129 g, 7.5 x 6.5 x 4.7 cm uterus with attached bilateral ovaries and fallopian tubes and a detached cervix. The cervix measures 3.5 x 3.5 x 3.0 cm. The exocervix is ann-pink, focally hyperemic with a central 0.7 cm slitlike os. The endocervix is ann red and contains multiple smooth-walled, mucoid material filled cysts measuring up to 1.0 cm. The uterine serosa is ann-pink, focally hyperemic with red peacock fibrous adhesions. The ann-red endometrium averages 0.2 cm in thickness. The pink-ann, trabecular myometrium measures up to 2.2 cm in thickness. No discrete myometrial lesion is identified. The right ann-peacock, lobular ovary measures 2.5 x 1.7 x 1.2 cm and has a rubbery, ann-peacock, focally hemorrhagic Specimen: [id number] Received: 05/13/22 Status: TIA Ricketts Num: [id number] Spec Type: Surgical Subm Dr: PRATEEK HICKS MD Tissues: A Uterus w/ or w/o tubes ovaries except neoplastic or prolap (CERVIX, ISABEL TU Procedures: HE Stain/7, Gross/Micro L5 Patient: Tootie Nicole [id number] (Continued) Specimen: Received: 05/13/22 (Continued) Gross Description (Continued) Signed (signature on file) Adry Vieyra MD 05/14/22 1528 Specimen: Received: 05/13/22 Status: TIA Ricketts Num: [id number] Spec Type: Surgical Subm Dr: PRATEEK J PRINTY,MD Tissues: A Uterus w/ or w/o tubes ovaries except neoplastic or prolap (CERVIX, ISABEL TU Procedures: HE Stain/7, Gross/Micro L5 Patient: Tootie Nicole [id number] (Continued) Specimen: [id number] Received: 05/13/22 (Continued) Gross Description (Continued) cut surface. The right fimbriated fallopian tube measures 3.5 x 1.3 cm and appears to been previously ligated. There is a pinpoint lumen on cut section. The left ann-peacock, lobular ovary measures 3.4 x 1.5 x 1.0 cm and has ann-red fibrous adhesions. Sectioning reveals multiple hemorrhagic material filled cysts measuring up to 0.9 cm. The remaining cut surface is rubbery, ann-peacock. The left fimbriated fallopian tube measures 3.5 x 0.7 cm and appears to been previously ligated. There is a pinpoint lumen on cut section.representati ve sections are submitted in 7 cassettes as follows: A1-A2 - Cervix A3 - Anterior endomyometrium A4 - Posterior endomyometrium A5 - Serosal adhesions A6 - Right ovary and fallopian tube A7 - Left ovary and fallopian tube (LG/) Microscopic Description Seven glass slides with H E stained material have been examined. The microscopic findings support the above pathologic diagnosis. CPT Codes 16862 --------- (more content not included)... 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 This test has not been FDA cleared or approved. This test has been authorized by FDA under an Emergency Use Authorization (EUA). This test has been validated in accordance with the FDA's Guidance Document (Policy for Diagnostics Testing in Laboratories Certified to Perform High Complexity Testing under CLIA prior to Emergency Use Authorization for Coronavirus Disease-2019 during the Public Health Emergency) issued on February 03, 2020. This test is only authorized for the duration of time the declaration that circumstances exist justifying the authorization of the emergency use of in vitro diagnostic tests for detection of SARS-CoV-2 virus and/or diagnosis of COVID-19 infection under section 564(b)(1) of the Act, 21 U.S.C. 360bbb-3(b)(1), unless the authorization is terminated or revoked sooner. PERFORMED BY: [place] [address] PATHOLOGIST GARMENT PRESSER SCARLETT MARIN M.D. Performed By: #### C OVID 19 [facility] [place] #### [address] COVID-19 Positive/NegativeOr dered By: Gaurav Marr on 05-09-2022 SARS-CoV-2 (COVID-19) N gene KATE+probe Ql (Resp) Negative Negative [facility] Comment on above: Testing for SARS-CoV -2 by RT-PCR This test was developed and its performance characteristics determined by [employer] & [employer] and validated at the [facility]. This test has not been FDA cleared or approved. This test has been authorized by FDA under an Emergency Use Authorization (EUA). This test has been validated in accordance with the FDA's Guidance Document (Policy for Diagnostics Testing in Laboratories Certified to Perform High Complexity Testing under CLIA prior to Emergency Use Authorization for Coronavirus Disease-2019 during the Public Health Emergency) issued on February 03, 2020. This test is only authorized for the duration of time the declaration that circumstances exist justifying the authorization of the emergency use of in vitro diagnostic tests for detection of SARS-CoV-2 virus and/or diagnosis of COVID-19 infection under section 564(b)(1) of the Act, 21 U.S.C. 360bbb-3(b)(1), unless the authorization is terminated or revoked sooner. Basic Metabolic Panelon -2 Calcium [Mass/Vol] 9.4 mg/dL Normal 8.2-10.2 [facility] Comment on above: Result Comment: PERF ORMED BY: [place] [address] PATHOLOGIST GARMENT PRESSER SCARLETT MARIN M.D. Performed By: #### C BC, BMP #### [address] Chloride [Moles/Vol] 101 mmol/L Normal 95-114 [facility] Comment on above: Performed By: #### C BC, BMP #### [address] CO2 [Moles/Vol] 25.4 mmol/L Normal 22.0-30.0 [facility] Comment on above: Performed By: #### C BC, BMP #### [address] Creatinine [Mass/Vol] 0.57 mg/dL Normal 0.44-1.03 [facility] Comment on above: Performed By: #### C BC, BMP #### [place] [address] [place] Estimated GFR ( Padmini > 60 Normal [facility] Comment on above: Result Comment: GFR estimated reference range: According to KDOQI guidelines, <60 ml/min/1.73m2 is sufficient to diagnose a patient with chronic kidney disease. Performed By: #### C BC, BMP #### [facility] [address] Estimated GFR (Non- Am > 60 Normal [facility] Comment on above: Performed By: #### C BC, BMP #### [facility] [address] Glucose [Mass/Vol] 89 mg/dL Normal 70-100 [facility] Comment on above: Result Comment: [place] Glucose Reference Range is dependent on time and content of last meal. Glucose of more than 200 mg/dL in a nonstressed, ambulatory subject supports the diagnosis of Diabetes Mellitus. ADA recommended reference range Performed By: #### C BC, BMP #### [facility] [address] Potassium [Moles/Vol] 4.2 mmol/L Normal 3.5-5.1 [facility] Comment on above: Performed By: #### C BC, BMP #### [address] Sodium [Moles/Vol] 135 mmol/L Low 136-146 [facility] Comment on above: Performed By: #### C BC, BMP #### [address] Urea nitrogen [Mass/Vol] 9 mg/dL Normal 9-23 [facility] Comment on above: Performed By: #### C BC, BMP #### [address] Basophils Auto (Bld) [#/Vol] Ordered By: PRATEEK HICKS on 04-29-2022 Basophils (Bld) [#/Vol] 0.1 10*3/uL 0.0-0.2 [facility] Basophils/100 WBC Auto (Bld) Ordered By: PRATEEK HICKS on 04-29-2022 Basophils/100 WBC (Bld) 0.8 % . [facility] Blood hemoglobin measurement (mass/volume)Ordered By: PRATEEK HICKS on 04-29-2022 Hemoglobin (Bld) [Mass/Vol] 13.2 g/dL 11.8-15.4 [facility] Blood leukocytes automated c ount (number/volume)Ordered By: PRATEEK HICKS on 04-29-2022 WBC (Bld) [#/Vol] 8.9 10*3/uL 4.5-11.0 [facility] Complete Blood Count Auto Di ffon 04-29-2022 Basophils (Bld) [#/Vol] 0.1 10*3/uL Normal 0.0-0.2 [facility] Comment on above: Result Comment: PERF ORMED BY: [place] [address] PATHOLOGIST GARMENT PRESSER SCARLETT MARIN M.D. Performed By: #### C BC, BMP #### [address] Basophils/100 WBC (Bld) 0.8 % Normal . [facility] Comment on above: Performed By: #### C BC, BMP #### [address] Eosinophils (Bld) [#/Vol] 0.3 10*3/uL Normal 0.0-0.45 [facility] Comment on above: Performed By: #### C BC, BMP #### [address] Eosinophils/100 WBC (Bld) 3.3 % Normal . [facility] Comment on above: Performed By: #### C BC, BMP #### [facility] [address] [place] [address] Erythrocyte distribution width (RBC) [Ratio] 13.5 % Normal 11.9-15.3 [facility] Comment on above: Performed By: #### C BC, BMP #### [address] Hematocrit (Bld) [Volume fraction] 38.9 % Normal 34.0-46.4 [facility] Comment on above: Performed By: #### C BC, BMP #### [address] Hemoglobin (Bld) [Mass/Vol] 13.2 g/dL Normal 11.8-15.4 [facility] Comment on above: Performed By: #### C BC, BMP #### [facility] [address] Lymphocytes (Bld) [#/Vol] 2.0 10*3/uL Normal 1.00-4.8 [facility] Comment on above: Performed By: #### C BC, BMP #### [facility] [address] Lymphocytes/100 WBC (Bld) 22.7 % Normal . [facility] Comment on above: Performed By: #### C BC, BMP #### [facility] [address] MCH (RBC) [Entitic mass] 29.6 pg Normal 24.7-34.3 [facility] Comment on above: Performed By: #### C BC, BMP #### [facility] [address] MCV (RBC) [Entitic vol] 87.7 fL Normal 80-100 [facility] Comment on above: Performed By: #### C BC, BMP #### [facility] [address] Mean Corpuscular HGB Conc 33.8 g/dL Normal 32.0-35.0 [facility] Comment on above: Performed By: #### C BC, BMP #### [facility] [address] [place] [address] [place] Monocytes (Bld) [#/Vol] 0.5 10*3/uL Normal 0.0-0.8 [facility] Comment on above: Performed By: #### C BC, BMP #### [facility] [address] [place] [address] [place] Monocytes/100 WBC (Bld) 5.4 % Normal . [facility] Comment on above: Performed By: #### C BC, BMP #### [facility] [address] Neutrophils (Bld) [#/Vol] 6.1 10*3/uL Normal 1.8-7.7 [facility] Comment on above: Performed By: #### C BC, BMP #### [facility] [address] [place] [address] [place] Neutrophils/100 WBC (Bld) 67.8 % Normal . [facility] Comment on above: Performed By: #### C BC, BMP #### [facility] [address] [place] [id number] [place] Nucleated RBC/100 WBC (Bld) [Ratio] 0.1 % Normal 0-0.5 [facility] Comment on above: Performed By: #### C BC, BMP #### [facility] [address] Platelet mean volume (Bld) [Entitic vol] 7.6 fL Normal 6.3-10.7 [facility] Comment on above: Performed By: #### C BC, BMP #### [facility] [address] [place] [address] [place] Platelets (Bld) [#/Vol] 353 10*3/uL Normal 150-450 [facility] Comment on above: Performed By: #### C BC, BMP #### [facility] [address] [place] [address] [place] RBC (Bld) [#/Vol] 4.44 10*6/uL Normal 3.60-5.00 [facility] Comment on above: Performed By: #### C BC, BMP #### [facility] [address] [place] [address] [place] WBC (Bld) [#/Vol] 8.9 10*3/uL Normal 4.5-11.0 [facility] Comment on above: Performed By: #### C BC, BMP #### [facility] [address] [place] [address] [place] Creatinine and Glomerular fi ltration rate.predicted panel (S/P/Bld)Ordered By: PRATEEK HICKS on 04-29-2022 Creatinine [Mass/Vol] 0.57 mg/dL 0.44-1.03 [facility] ECG 12 lead ECGon 04-29-2022 ECG 12 lead ECG [facility] [place] [address] Electrocardiograph Report Signed Patient: Tootie Nicole MR#: [id number] 0 : 1975 Acct:[id number] Age/Sex: 46 / F ADM Date: 04/29/22 Loc: PS Room: Type: [facility] Attending Dr: Prateek Hicks MD Ordering Provider: PRATEEK HICKS MD Date of Service: 04/29/22 ECG/ECG 12 lead ECG: OR 05/13/22 Copies to: Test Reason : Blood Pressure : / mmHG Vent. Rate : 068 BPM Atrial Rate : 068 BPM P-R Int : 154 ms QRS Dur : 078 ms QT Int : 406 ms P-R-T Axes : 057 042 047 degrees QTc Int : 431 ms Normal sinus rhythm Normal ECG When compared with ECG of 07-MAR-2020 13:51, No significant change was found Confirmed by ROMEO TAYLOR DO ([id number]) on 04/29/2022 6:02:26 PM Referred By: LAZARO HICKS Electronically Signed By:ROMEO TAYLOR DO Transcribed By: MUS Signed By Romeo Taylor DO 04/29 180 Normal [facility] Eosinophils Auto (Bld) [#/Vo l]Ordered By: PRATEEK HICKS on 04-29-2022 Eosinophils (Bld) [#/Vol] 0.3 10*3/uL 0.0-0.45 [facility] Eosinophils/100 WBC Auto (Bl d)Ordered By: PRATEEK HICKS on 04-29-2022 Eosinophils/100 WBC (Bld) 3.3 % . [facility] Erythrocyte distribution wid th Auto (RBC) [Ratio]Ordered By: PRATEEK HICKS on 04-29-2022 Erythrocyte distribution width (RBC) [Ratio] 13.5 % 11.9-15.3 [facility] Estimated glomerular filtrat ion rate (GFR) non- AmericanOrdered By: PRATEEK HICKS on 04-29-2022 GFR/1.73 sq M.predicted among non-blacks MDRD (S/P/Bld) [Vol rate/Area] > 60 mL/Min [facility] Hematocrit Auto (Bld) [Volum e fraction]Ordered By: PRATEEK HICKS on 04-29-2022 Hematocrit (Bld) [Volume fraction] 38.9 % 34.0-46.4 [facility] Laboratory - Hematology and Cell countsOrdered By: PRATEEK HICKS on 04-29-2022 Nucleated RBC/100 WBC (Bld) [Ratio] 0.1 % 0-0.5 [facility] Lymphocytes Auto (Bld) [#/Vo l]Ordered By: PRATEEK HICKS on 04-29-2022 Lymphocytes (Bld) [#/Vol] 2.0 10*3/uL 1.00-4.8 [facility] Lymphocytes/100 WBC Auto (Bl d)Ordered By: PRATEEK HICKS on 04-29-2022 Lymphocytes/100 WBC (Bld) 22.7 % . [facility] MCH Auto (RBC) [Entitic mass ]Ordered By: PRATEEK HICKS on 04-29-2022 MCH (RBC) [Entitic mass] 29.6 pg 24.7-34.3 [facility] MCHC Auto (RBC) [Mass/Vol]Or dered By: PRATEEK HICKS on 04-29-2022 MCHC (RBC) [Mass/Vol] 33.8 g/dL 32.0-35.0 [facility] MCV Auto (RBC) [Entitic vol] Ordered By: PRATEEK HICKS on 04-29-2022 MCV (RBC) [Entitic vol] 87.7 fL 80-100 [facility] Monocytes Auto (Bld) [#/Vol] Ordered By: PRATEEK HICKS on 04-29-2022 Monocytes (Bld) [#/Vol] 0.5 10*3/uL 0.0-0.8 [facility] Monocytes/100 WBC Auto (Bld) Ordered By: PRATEEK HICKS on 04-29-2022 Monocytes/100 WBC (Bld) 5.4 % . [facility] Neutrophils Auto (Bld) [#/Vo l]Ordered By: PRATEEK HICKS on 04-29-2022 Neutrophils (Bld) [#/Vol] 6.1 10*3/uL 1.8-7.7 [facility] Neutrophils/100 WBC Auto (Bl d)Ordered By: PRATEEK HICKS on 04-29-2022 Neutrophils/100 WBC (Bld) 67.8 % . [facility] No Panel InformationOrdered By: PRATEEK HICKS on 04-29-2022 Estimated GFR () > 60 mL/Min [facility] Comment on above: GFR estimated refere nce range: According to KDOQI guidelines, <60 ml/min/1.73m2 is sufficient to diagnose a patient with chronic kidney disease. Pharmacy Creatinine Clearance (Chem N/A [facility] Platelet mean volume Auto (B ld) [Entitic vol]Ordered By: PRATEEK HICKS on 04-29-2022 Platelet mean volume (Bld) [Entitic vol] 7.6 fL 6.3-10.7 [facility] Platelets Auto (Bld) [#/Vol] Ordered By: PRATEEK HICKS on 04-29-2022 Platelets (Bld) [#/Vol] 353 10*3/uL 150-450 [facility] RBC Auto (Bld) [#/Vol]Ordere d By: PRATEEK HICKS on 04-29-2022 RBC (Bld) [#/Vol] 4.44 10*6/uL 3.60-5.00 [facility] Serum or plasma calcium pio urement (mass/volume)Ordered By: PRATEEK HICKS on 04-29-2022 Calcium [Mass/Vol] 9.4 mg/dL 8.2-10.2 [facility] Serum or plasma chloride mary surement (moles/volume)Ordered By: PRATEEK HICKS on 04-29-2022 Chloride [Moles/Vol] 101 mmol/L 95-114 [facility] Serum or plasma glucose pio urement (mass/volume)Ordered By: PRATEEK HICKS on 04-29-2022 Glucose [Mass/Vol] 89 mg/dL 70-100 [facility] Comment on above: ADA recommended refe rence range Random Glucose Reference Range is dependent on time and content of last meal. Glucose of more than 200 mg/dL in a nonstressed, ambulatory subject supports the diagnosis of Diabetes Mellitus. Serum or plasma potassium me asurement (moles/volume)Ordered By: PRATEEK HICKS on 04-29-2022 Potassium [Moles/Vol] 4.2 mmol/L 3.5-5.1 [facility] Serum or plasma sodium measu rement (moles/volume)Ordered By: PRATEEK HICKS on 04-29-2022 Sodium [Moles/Vol] 135 mmol/L 136-146 [facility] Serum or plasma total carbon dioxide measurement (moles/volume)Ordered By: PRATEEK HICKS on 04-29-2022 CO2 [Moles/Vol] 25.4 mmol/L 22.0-30.0 [facility] Serum or plasma urea nitroge n measurement (mass/volume)Ordered By: PRATEEK HICKS on 04-29-2022 Urea nitrogen [Mass/Vol] 9 mg/dL 07-26 [facility] Vital Signs Date Time Vital Sign Value Performing Clinician Facility 08-19-2024 10:00-0400 Diastolic blood pressure 84 mm[Hg] Lisa Mauricio DO Work Phone: [facility] 08-19-2024 10:00-0400 Heart rate 88 /min Lisa Mauricio DO Work Phone: [facility] 08-19-2024 10:00-0400 SaO2% (BldA) [Mass fraction] 97 % Lisa Mauricio DO Work Phone: [facility] 08-19-2024 10:00-0400 Systolic blood pressure 126 mm[Hg] Lisa Mauricio DO Work Phone: [facility] 08-11-2024 14:47-0400 Blood Pressure Location [facility] 08-11-2024 14:47-0400 Diastolic blood pressure 70 mm[Hg] [facility] 08-11-2024 14:47-0400 Heart rate 89 /min [facility] 08-11-2024 14:47-0400 SaO2% (BldA) [Mass fraction] 98 % [facility] 08-11-2024 14:47-0400 Systolic blood pressure 114 mm[Hg] [facility] 05-18-2024 12:06-0400 Diastolic blood pressure 90 mm[Hg] [facility] 05-18-2024 12:06-0400 Mean blood pressure 104 mm[Hg] [facility] 05-18-2024 12:06-0400 Systolic blood pressure 132 mm[Hg] [facility] 05-18-2024 11:36-0400 Blood Pressure Location [facility] 05-18-2024 11:36-0400 Diastolic blood pressure 90 mm[Hg] [facility] 05-18-2024 11:36-0400 Heart rate 78 /min [facility] 05-18-2024 11:36-0400 SaO2% (BldA) [Mass fraction] 98 % [facility] 05-18-2024 11:36-0400 Systolic blood pressure 140 mm[Hg] [facility] 02-24-2024 17:26-0400 Blood Pressure Location [facility] 02-24-2024 17:26-0400 Diastolic blood pressure 82 mm[Hg] [facility] 02-24-2024 17:26-0400 Heart rate 91 /min [facility] 02-24-2024 17:26-0400 SaO2% (BldA) [Mass fraction] 97 % [facility] 02-24-2024 17:26-0400 Systolic blood pressure 136 mm[Hg] [facility] 12-23-2023 17:04-0500 Blood Pressure Location [facility] 12-23-2023 17:04-0500 Diastolic blood pressure 80 mm[Hg] [facility] 12-23-2023 17:04-0500 Heart rate 81 /min [facility] 12-23-2023 17:04-0500 SaO2% (BldA) [Mass fraction] 98 % [facility] 12-23-2023 17:04-0500 Systolic blood pressure 110 mm[Hg] [facility] 09-17-2023 15:44-0500 Blood Pressure Location [facility] 09-17-2023 15:44-0500 Diastolic blood pressure 94 mm[Hg] [facility] 09-17-2023 15:44-0500 Heart rate 83 /min [facility] 09-17-2023 15:44-0500 SaO2% (BldA) [Mass fraction] 98 % [facility] 09-17-2023 15:44-0500 Systolic blood pressure 128 mm[Hg] [facility] 06-17-2023 10:35-0400 Blood Pressure Location [facility] 06-17-2023 10:35-0400 Body temperature 97.7 [degF] [facility] 06-17-2023 10:35-0400 Diastolic blood pressure 60 mm[Hg] [facility] 06-17-2023 10:35-0400 Heart rate 82 /min [facility] 06-17-2023 10:35-0400 SaO2% (BldA) [Mass fraction] 97 % [facility] 06-17-2023 10:35-0400 Systolic blood pressure 110 mm[Hg] [facility] 04-04-2023 12:48-0400 Blood Pressure Location [facility] 04-04-2023 12:48-0400 Body temperature 97.7 [degF] [facility] 04-04-2023 12:48-0400 Diastolic blood pressure 80 mm[Hg[facility] 04-04-2023 12:48-0400 Heart rate 86 /min [facility] 04-04-2023 12:48-0400 SaO2% (BldA) [Mass fraction] 97 % [facility] 04-04-2023 12:48-0400 Systolic blood pressure 111 mm[Hg] [facility] 12-30-2022 10:22-0500 Blood Pressure Location Josy Olsonell [facility] 12-30-2022 10:22-0500 Body temperature 98.42 [degF] Josy Isaacs [facility] 12-30-2022 10:22-0500 Diastolic blood pressure 76 mm[Hg] Josy Isaacs [facility] 12-30-2022 10:22-0500 Heart rate 72 /min Josyfranko Olsonell [facility] 12-30-2022 10:22-0500 SaO2% (BldA) [Mass fraction] 98 % Josy Isaacs [facility] 12-30-2022 10:22-0500 Systolic blood pressure 138 mm[Hg] Josy Isaacs [facility] 10-30-2022 09:54-0500 Blood Pressure Location Josyfranko Olsonell [facility] 10-30-2022 09:54-0500 Body temperature 98.24 [degF] Josy Isaacs [facility] 10-30-2022 09:54-0500 Diastolic blood pressure 74 mm[Hg] Josy Isaacs [facility] 10-30-2022 09:54-0500 Heart rate 77 /min Josy Isaacs [facility] 10-30-2022 09:54-0500 SaO2% (BldA) [Mass fraction] 100 % Josy Isaacs [facility] 10-30-2022 09:54-0500 Systolic blood pressure 130 mm[Hg] Josy Isaacs [facility] 08-26-2022 16:31-0400 Blood Pressure Location Josy Isaacs [facility] 08-26-2022 16:31-0400 Body temperature 97.88 [degF] Josy Isaacs [facility] 08-26-2022 16:31-0400 Diastolic blood pressure 66 mm[Hg] Josy Isaacs [facility] 08-26-2022 16:31-0400 Heart rate 61 /min Josy Isaacs [facility] 08-26-2022 16:31-0400 SaO2% (BldA) [Mass fraction] 98 % Josy Isaacs [facility] 08-26-2022 16:31-0400 Systolic blood pressure 124 mm[Hg] Josy Isaacs [facility] 05-22-2022 11:29-0400 Body temperature 97.3 [degF] MD Prateek Hicks Work Phone: [facility] 05-22-2022 11:29-0400 Diastolic blood pressure 61 mm[Hg] MD Prateek Hicks Work Phone: [facility] 05-22-2022 11:29-0400 Heart rate 64 /min MD Prateek Hicks Work Phone: [facility] 05-22-2022 11:29-0400 Respiratory rate 16 /min MD Prateek Hicks Work Phone: [facility] 05-22-2022 11:29-0400 SaO2% (BldA) [Mass fraction] 98 % MD Prateek Hicks Work Phone: [facility] 05-22-2022 11:29-0400 Systolic blood pressure 120 mm[Hg] MD Prateek Hicks Work Phone: [facility] 05-15-2022 08:00-0400 Body temperature 98.3 [degF] MD Prateek Hicks Work Phone: [facility] 05-15-2022 08:00-0400 Diastolic blood pressure 80 mm[Hg] MD Prateek Hicks Work Phone: [facility] 05-15-2022 08:00-0400 Heart rate 77 /min MD Prateek Hicks Work Phone: [facility] 05-15-2022 08:00-0400 Respiratory rate 16 /min MD Prateek Hicks Work Phone: [facility] 05-15-2022 08:00-0400 SaO2% (BldA) [Mass fraction] 96 % MD Prateek Hicks Work Phone: [facility] 05-15-2022 08:00-0400 Systolic blood pressure 127 mm[Hg] MD Prateek Hicks Work Phone: [facility] 05-14-2022 03:15-0400 Inhaled oxygen flow rate 1 L/min MD Prateek Hicks Work Phone: [facility] 05-13-2022 08:16-0400 Body height 162.56 cm MD Prateek Hicks Work Phone: [facility] 05-13-2022 08:16-0400 Body mass index (BMI) [Ratio] 32.9 kg/m2 MD Prateek Hicks Work Phone: [facility] 05-13-2022 08:16-0400 Body weight 87 kg MD Prateek Hicks Work Phone: [facility] 04-28-2022 11:30-0400 Body temperature 98.06 [degF] Brady Tierney [facility] 04-28-2022 11:30-0400 Diastolic blood pressure 86 mm[Hg] Brady Tierney [facility] 04-28-2022 11:30-0400 Heart rate 74 /min Brady Soson [facility] 04-28-2022 11:30-0400 Respiratory rate 16 /min Brady Tierney [facility] 04-28-2022 11:30-0400 SaO2% (BldA) [Mass fraction] 98 % Brady Tierney [facility] 04-28-2022 11:30-0400 Systolic blood pressure 126 mm[Hg] Brady Soson [facility] 02-25-2022 15:59-0400 Blood Pressure Location Josy Isaacs [facility] 02-25-2022 15:59-0400 Body temperature 98.06 [degF] Josy Isaacs [facility] 02-25-2022 15:59-0400 Diastolic blood pressure 78 mm[Hg] Josy Isaacs [facility] 02-25-2022 15:59-0400 Heart rate 74 /min Josy Isaacs [facility] 02-25-2022 15:59-0400 SaO2% (BldA) [Mass fraction] 98 % Josy Isaacs [facility] 02-25-2022 15:59-0400 Systolic blood pressure 128 mm[Hg] Josy Isaacs [facility] 02-19-2022 16:48-0400 Body temperature 98.2 [degF] Remigio Trujillo MD Work Phone: [facility] 02-19-2022 16:48-0400 Diastolic blood pressure 81 mm[Hg] Remigio Trujillo MD Work Phone: [facility] 02-19-2022 16:48-0400 Heart rate 69 /min Remigio Trujillo MD Work Phone: [facility] 02-19-2022 16:48-0400 Systolic blood pressure 121 mm[Hg] Remigio Trujillo MD Work Phone: [facility] Encounters Encounter Date Encounter Type Care Provider Facility Start: 11-10-2024 ambulatory Romeo Learyi ty:[facility] Start: 09-08-2024 ambulatory Romeo Learyi ty:[facility] Start: 08-19-2024 End: 08-19-2024 Bamboo flowsheet Lisa Mauricio DO Work Phone: [facility] Start: 08-19-2024 End: 08-19-2024 Bamboo flowsheet Lisa Mauricio DO Work Phone: [facility] Start: 08-19-2024 End: 08-19-2024 Patient encounter procedure Lisa Mauricio DO Work Phone: [facility] Comment on above: 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) Start: 08-19-2024 End: 08-19-2024 ambulatory LISA MARTÍNEZ Not Available Start: 08-14-2024 End: 08-15-2024 Emergency department patient visit Dameon Caglechidi Facility:[facility] Start: 08-11-2024 End: 08-11-2024 ambulatory Romeo Chaidez Facility:[facility] Start: 08-11-2024 End: 08-11-2024 Patient encounter procedure Romeo Chaidez [facility] Start: 07-19-2024 End: 07-19-2024 Emergency department patient visit Brenna Yoon Facility:[facility] Start: 06-07-2024 End: 06-08-2024 Emergency department patient visit Yovani Negrete Facility:[facility] Start: 06-04-2024 End: 06-04-2024 ambulatory Romeo Chaidez [facility] Start: 06-04-2024 End: 06-04-2024 Patient encounter procedure Romeo Chaidez [facility] Start: 05-18-2024 End: 05-18-2024 ambulatory Romeo Chaidez Facility:[facility] Start: 05-18-2024 End: 05-18-2024 Patient encounter procedure Romeo Chaidez [facility] Start: 05-13-2024 End: 05-13-2024 ambulatory LISA MARTÍNEZ Not Available Start: 04-13-2024 End: 04-14-2024 Emergency department patient visit Tru H Shaka Facility:[facility] Start: 02-24-2024 End: 02-24-2024 ambulatory Romeo Chaidez Facility:[facility] Start: 02-24-2024 End: 02-24-2024 Patient encounter procedure Romeo Chaidez [facility] Start: 02-03-2024 End: 02-04-2024 ambulatory REMIGIO TRUJILLO Facility:[facility] Start: 02-03-2024 End: 02-03-2024 Patient encounter procedure Remigio Trujillo MD Work Phone: Plastic Surgery Comment on above: Encounter for cosmet ic procedure (Primary Dx) Start: 01-29-2024 End: 01-29-2024 Emergency department patient visit Bin Bello Facility:[facility] Start: 2023 End: 2023 Emergency department patient visit Tru Verna Matt Facility:[facility] Start: 12-23-2023 End: 12-23-2023 ambulatory Romeo Chaidez Facility:[facility] Start: 12-23-2023 End: 12-23-2023 Patient encounter procedure Romeo Chaidez [facility] Start: 11-18-2023 End: 11-18-2023 Emergency department patient visit Jeff Becerra Marlenyestee Facility:[facility] Start: 10-21-2023 End: 10-21-2023 ambulatory PRATEEK J PRINTY Not Available Start: 10-14-2023 End: 10-14-2023 ambulatory PRATEEK PRINTY Not Available Start: 10-01-2023 End: 10-01-2023 ambulatory Romeo Chaidez [place] Start: 10-01-2023 End: 10-01-2023 Patient encounter procedure Romeo Chaidez [facility] Start: 09-18-2023 End: 09-18-2023 ambulatory PRATEEK Lopez PRINTY Not Available Start: 09-17-2023 End: 09-17-2023 ambulatory Romeo Chaidez Facility:[facility] Start: 09-17-2023 End: 09-17-2023 Patient encounter procedure Romeo Chaidez [facility] Start: 09-15-2023 End: 09-15-2023 Emergency department patient visit Tru H Shaka Facility:[facility] Start: 06-17-2023 End: 06-17-2023 Patient encounter procedure Romeo Chaidez [facility] Start: 04-04-2023 End: 04-04-2023 Patient encounter procedure Romeo Chaidez [facility] Start: 03-18-2023 End: 03-19-2023 ambulatory REMIGIO TRUJILLO Facility:[facility] Start: 03-10-2023 End: 03-12-[address] DOCTOR BEAL Facility: Start: 12-30-2022 End: 12-30-2022 Patient encounter procedure Josy Isaacs [facility] Start: 12-05-2022 Telephone encounter Kacie Scars o [facility] Comment on above: Plastic Surg Skin Ca re (Pt purchased Obagi Clear 4% from [facility]/mailed.) Start: 12-04-2022 Refill Remigio Trujillo MD Work Phone: Plastic Surgery Comment on above: Refill Request Start: 11-24-2022 End: 11-24-2022 ambulatory CHARLIE MONTES . Facility: Start: 10-30-2022 End: 10-30-2022 Patient encounter procedure Josy Isaacs [facility] Start: 10-08-2022 End: 10-08-2022 Patient encounter procedure Remigio Trujillo MD Work Phone: Plastic Surgery Comment on above: Encounter for cosmet ic surgery (Primary Dx) Start: 08-26-2022 End: 08-26-2022 Patient encounter procedure Josy Isaacs [facility] Start: 06-04-2022 End: 06-04-2022 Patient encounter procedure Remigio Trujillo MD Work Phone: Plastic Surgery Comment on above: Elective procedure f or unacceptable cosmetic appearance (Primary Dx) Start: 05-22-2022 End: 05-22-2022 Emergency department patient visit Josy Isaacs Facility:[facility] Start: 05-22-2022 End: 05-22-2022 Emergency department patient visit MD Prateek Hicks Work Phone: [facility] Start: 05-13-2022 End: 05-15-2022 Evaluation and management of inpatient Josy Isaacs Facility:[facility] Start: 05-13-2022 End: 05-15-2022 Evaluation and management of inpatient MD Prateek Hciks Work Phone: [facility] [address] Start: 05-09-2022 End: 05-09-2022 ambulatory Josy Vannessa Lazaro Facility:[facility] Start: 05-09-2022 End: 05-09-2022 Patient encounter procedure MD Prateek Hicks Work Phone: [facility] Start: 04-29-2022 End: 04-29-2022 ambulatory Josy Isaacs Facility:[facility] Start: 04-29-2022 End: 04-29-2022 Patient encounter procedure MD Prateek Hikcs Work Phone: [facility] Start: 04-28-2022 End: 04-28-2022 Emergency department patient visit Brady Tierney [facility] Start: 04-09-2022 End: 04-09-2022 Patient encounter procedure Remigio Trujillo MD Work Phone: Plastic Surgery Comment on above: Encounter for cosmet ic surgery (Primary Dx) Start: 02-25-2022 End: 02-25-2022 Patient encounter procedure Josy Isaacs [facility] Start: 02-19-2022 End: 02-19-2022 Patient encounter procedure Remigio Trujillo MD Work Phone: Plastic Surgery Comment on above: Encounter for cosmet ic surgery (Primary Dx) Start: 02-12-2022 End: 02-12-2022 Patient encounter procedure Nazanin Shaffer [facility] Procedures Date Procedure Procedure Detail Performing Clinician Start: 05-22-2022 Computed tomography of abdomen and pelvis with contrast MD Prateek Hicks Work Phone: Start: 05-15-2022 Diagnostic radiography of abdomen MD Prateek Hicks Work Phone: Start: 05-14-2022 [facility] prosthesis, device (physical object) [facility] Shaffer Breast structure (eli dy structure) [facility] [employer] History of appendectomy History of append ectomy Romeo Chaidez SARS Antigen (LFIA) MD Prateek Hicks Work Phone: Sinus (morphologic abnormality) [facility] [employer] Plan of Treatment Date Care Activity Detail Author Start: 07-13-2030 Urine microalbumin profile DTaP,Tdap,Td Vaccine (2 - Td or Tdap) [facility] Start: 01-27-2027 Screening for malign ant neoplasm of colon [facility] Start: 11-18-2024 End: 11-18-2024 Patient encounter procedure 11/18/2024 11:15 AM EST [facility] [id number] [place] [address] Lisa Martínez DO [address] [place] [address] [facility] [address] Start: 08-19-2024 End: 08-19-2024 Patient encounter procedure 08/19/2024 10:00 AM EDT Procedure Visit [facility] [id number] [place] [address] Lisa Martínez DO [address] [place], [place] [id number] Arrived [facility] [address] Comment on above: Arrived Start: 2023 Shingrix Vaccine (1 of 2) Shingrix Vaccine (1 of 2) [facility] Start: 11-03-2023 Depression Assessment Depression Ass essment [facility] Start: 07-04-2023 Covid-19 Vaccine ( season) Covid-19 Vaccine ( season) [facility] Start: 11-03-2022 DEPRESSION ASSESSMENT DEPRESSION ASS ESSMENT [facility] Start: 08-30-2022 Diabetes Screening Diabetes Screenin g [facility] Start: 07-04-2022 Influenza vaccination [facility] Start: 05-15-2022 [facility] Work Phone: Start: 05-13-2022 Release Peritoneum, Open Approach Release Peritoneum, Open Approach [facility] Start: 05-13-2022 Resection of Bilater al Fallopian Tubes, Open Approach Resection of Bilateral Fallopian Tubes, Open Approach [facility] Start: 05-13-2022 Resection of Bilater al Ovaries, Open Approach Resection of Bilateral Ovaries, Open Approach [facility] Start: 05-13-2022 Resection of Cervix, Open Approach Resection of Cervix, Open Approach [facility] Start: 05-13-2022 Resection of Uterus, Open Approach Resection of Uterus, Open Approach [facility] Start: 05-13-2022 Hospital admission [facility] Work Phone: Start: 11-03-2021 [facility]ION [facility]MENT [facility] Start: 08-30-2020 Screening for malign ant neoplasm of breast Mammogram Screening [facility] Start: 2018 COLOGUARD (FIT-DNA) COLOGUARD (FIT-D NA) [facility] Start: 2018 Colonoscopy COLONOSCOPY [facility] Start: 2018 COLORECTAL CANCER SCREENING COLORECTAL CANCER SCREENING [facility] Start: [address] COLONOGRAPHY [facility] Start: 2018 DIABETES SCREEN DIABETES SCREEN [facility] Start: 2018 FECAL OCCULT BLOOD FECAL OCCULT BLOO D [facility] Start: 2018 Lipid panel Lipid Screening [facility] Start: 2018 LIPID SCREEN LIPID SCREEN [facility] Start: 2018 Screening for malign ant neoplasm of colon [facility] Start: 2018 SIGMOIDOSCOPY SIGMOIDOSCOPY [facility] Start: 2013 Mammography MAMMOGRAM [facility] Start: 2003 HPV TESTING HPV TESTING [facility] Start: 2003 Screening for malign ant neoplasm of cervix HPV Testing [facility] Start: 1994 PAP TESTING PAP TESTING [facility] Start: 1994 Screening for malign ant neoplasm of cervix Pap Testing [facility] Start: 1992 Hepatitis B Vaccine (1 of 3 - 19+ 3-dose series) Hepatitis B Vaccine (1 of 3 - 19+ 3-dose series) [facility] Start: 1992 Urine microalbumin profile DTAP,TDAP,TD (1 - Tdap) [facility] Start: 1991 HEPATITIS C SCREENING HEPATITIS C SC [facility] Start: 1991 Hepatitis C screening Hepatitis C [facility] Start: 1991 HIV SCREENING HIV SCREENING [facility] Start: 1991 HIV screening HIV Screening [facility] Start: 1985 Adult depression screening assessment DEPRESSION SCREENING [facility] Start: 1979 PNEUMOCOCCAL (1 - PCV) PNEUMOCOCCAL (1 - PCV) [facility] Start: 1979 Pneumococcal vaccination Pneum ococcal Vaccine (1 of 2 - PCV) [facility] Start: 1978 COVID-19 VACCINE (#1) COVID-19 VACCI NE (#1) [facility] Start: 1978 COVID-19 VACCINE (1) COVID-19 VACCIN E (1) [facility] Start: 06-24-1974 COVID-19 VACCINE (#1) COVID-19 VACCI NE (#1) [facility] Start: 1973 HEPATITIS B (1 of 3 - 3-dose series) HEPATITIS B (1 of 3 - 3-dose series) [facility] Bacteria identified in Blood by Culture [facility] Patient Education [facility] Work Phone: Patient referral [facility] Work Phone: [facility] Immunizations Immunization Date Immunization Notes Care Provider Fa tra 09-17-2023 influenza, injectabl e, quadrivalent, preservative free Romeo Chaidez [facility] 07-13-2020 tetanus toxoid, reduced diphtheria toxoid, and acellular pertussis vaccine, adsorbed Josy Lazaro [facility] 01-14-2011 hepatitis B vaccine, pediatric or pediatric/adolescent dosage Josy Lazaro [facility] 08-15-2010 hepatitis B vaccine, pediatric or pediatric/adolescent dosage Josy Lazaro [facility] 07-17-2010 hepatitis B vaccine, pediatric or pediatric/adolescent dosage Josy Lazaro [facility] NEGATED: Highlighted row has not occurred!08-26-2022 influenza virus vaccine, unspecified formulation Josy Lazaro [facility] Payers Date Payer Category Payer Medicaid [id number] 2013 Medicaid [id number] 1973 Unknown [id number] 2.16.84 [id number] 1973 Unknown [id number] 2.16.84 0.1.142672.3.579.2.593 1973 Unknown [id number] 2.16.8 40.1.999650.3.579.2.727 1973 Unknown [id number] 2.16.8 40.1.438858.3.579.2.727 1973 Unknown [id number] 2.16.8 40.1.719071.3.579.2.727 1973 Unknown [id number] 2.16.8 40.1.493209.3.579.2.727 1973 Unknown [id number] 2.16.8 40.1.817180.3.579.2.727 1973 Unknown [id number] 2.16.8 40.1.466573.3.579.2.727 1973 Unknown [id number] 2.16.8 40.1.106109.3.579.2.727 1973 Unknown [id number] 2.16.8 40.1.651313.3.579.2.727 1973 Unknown [id number] 2.16.8 40.1.871736.3.579.2.72 1973 Unknown [id number] 2.16.84 0.1.628389.3.579.2.9 1973 Unknown [id number] 2.16.84 0.1.406120.3.579.2.9 1973 Unknown [id number] 2.16.840 .1.133508.3.579.2.9 1973 Unknown [id number] 2.16.840 .1.702306.3.579.2.9 1973 Unknown [id number] 2.16.840 .1.407464.3.579.2.9 1973 Unknown [id number] 2.16.8 40.1.480937.3.579.2.8 1973 Unknown [id number] 2.16.8 40.1.499759.3.579.2. 1973 Unknown [id number] 2.16.8 40.1.268627.3.579.2. 1973 Unknown [id number] 2.16.8 40.1.360366.3.579.2. 1973 Unknown [id number] 2.16.8 40.1.880608.3.579.2.8 1973 Unknown [id number] 2.16.8 40.1.513837.3.579.2.8 1973 Unknown [id number] 2.16.8 40.1.533292.3.579.2.718 1973 Unknown [id number] 2.16.8 40.1.806260.3.579.2.718 1959 Unknown [id number] Medicaid [place] Advantage [id number] Self-pay Self Pay [id number] Social History Date Type Detail Facility Start: 11-26-2021 End: 08-11-2024 Tobacco smoking status Light tobacco smoker (finding) [facility] Tobacco smoking status Never [facility] Start: 03-18-2023 End: 09-18-2023 Sex Assigned At Female [facility] Start: 06-20-2020 End: 03-18-2023 Tobacco smoking status NHIS Occasional tobacco smoker [facility] Start: 06-20-2020 End: 09-16-2023 Tobacco use and exposure Smokeless tobacco non-user [facility] Start: 1973 Sex Assigned At Female [facility] Start: 05-13-2022 Tobacco smoking stat [facility] Current Heavy tobacco smoker [facility] Start: 05-25-2022 End: 06-04-2022 Exposure to SARS-CoV-2 (event) Not sure [facility] Start: 03-18-2023 End: 09-18-2023 History of Social function [facility] Start: 01-24-2022 Gender identity Identifies as female gender (finding) [facility] Start: 09-16-2023 [facility] History of tobacco use Cigarette Smoker [facility] Start: 03-25-2024 Alcoholic beverage intake Ex-drinker (finding) [facility] Start: 10-29-2023 Alcohol Comment caffeine 3-4 cups/da y [facility] Start: 1975 Sex assigned at Not on file [facility] Goals Date Patient Goal Desired Activity /State Functional Status Date Assessment Result Facility 08-11-2024 Functional Status N/A [facility] 05-18-2024 Functional Status N/A [facility] 02-24-2024 Functional Status N/A [facility] 12-23-2023 Functional Status N/A [facility] 09-17-2023 Functional Status N/A [facility] 04-04-2023 Functional Status N/A [facility] 12-30-2022 Functional Status N/A [facility] 10-30-2022 Functional Status N/A [facility] 08-26-2022 Functional Status N/A [facility] 04-28-2022 Functional Status N/A [facility] Clinical Notes 11-26-2021 to 08-19-2024 Lisa Martínez, DO - 08/19/2024 10:00 AM Remigio Grimm MD - 02/03/2024 4:42 PM Shawanda Peck APRN.GUEST RELATIONS REPRESENTATIVE - 02/03/2024 4:15 PM EDTRadiologyNESTOR Ho - 10/08/2022 4:15 PM ESTRadiology Note Date & Type Note Facility 08-19-2024 History of Present illness Narrative Procedure - Therapeutic injection, Botulinum Toxin, Chronic Migraine Indication Chronic Migraine 48-year-old female with chronic migraines without aura that have been intractable. She does have more than 15 headache days per month and more than 8 or migraine. These have been refractory to multiple medications. They do have migraine features and last more than 4 hours and are worse with exertion. She is responding nicely to Botox injections. They do wear off just prior to the next set of injections and she is more miserable around that time. She also now has been told that she needs neck surgery and is to be getting that next month. She typically gets 75-80 percent improvement in the middle. The patient was counseled on the physiology of botulinum toxin and the risks and benefits of the injections. This was reviewed with the patient and included but not limited to bleeding, infection, dysphagia or weakness of the muscles. All questions were answered and they agreed to proceed with Botox injections. Identification The patient was positively identified by name and date of . Consent The procedure with risks and benefits was explained to the patient. The risks included but were not limited to bleeding/bruising, weakness, ptosis, dysphagia, infection, and . Informed consent for the procedure was obtained and witnessed. All further questions were answered during this visit. Site Prep The areas to be injected were sterilized with 70% isopropanol alcohol. LOT # [id number] EXP 11/2026 Dilution: 1:1 Procedure Procerus 10 units Leasing Coordinator, L 5 units Leasing Coordinator, R 5 units Frontalis, L 10+5 units Frontalis, R 10+5 units Temporalis, L 10+5+5+5 units Temporalis, R 10+5+5+5 units Occipitalis, L 5+5+10 units Occipitalis, R 5+5+10 units Paraspinalis cervicis, L 10+5 units Paraspinalis cervicis, R 10+5 units Trapezius, L 5+5+5 units Trapezius, L 5+5+5 units Other TOTAL UNITS INJECTED 200 WASTED 0 Disposition The patient tolerated the procedure well. Post-op care was discussed. The patient is aware that duration of action is ~ 90 days, and that delay in reinjection often results in recurrence of migraines Patient Instructions The patient was instructed to call or return for any excessive,weakness or any other unexpected symptoms. Assessment Chronic migraine without aura, intractable, without status migrainosus - G43.719 Toradol Lot# [id number] in right Glut gray Exp 06/27 documented in this encounter [facility] 08-15-2024 Note Education Materials Neurology Chronic Migraine Headache Follow-up with your neurologist to review this emergency department visit and for further treatment of your chronic migrainous headaches. A migraine headache is throbbing pain that is usually on one side of the head. It can also cause other symptoms. A migraine is called a chronic migraine if it happens at least 15 days in a month for more than 3 months. Talk with your doctor about what things may bring on (trigger) your migraines. What are the causes? The exact cause of a migraine is not known. This condition may be brought on or caused by: ? Smoking. ? Some medicines, such as control or some blood pressure medicines. ? Certain substances in some foods or drinks. ? Foods and drinks, such as: ? Cheese. ? Chocolate. ? Alcohol. ? Caffeine. Other things that may bring on a migraine include: ? Periods. ? Stress. ? Getting too much or too little sleep. ? Feeling tired (fatigue). ? Bright lights or loud noises. ? Certain smells. ? Weather changes and being at high altitude. What increases the risk? The following factors may make you more likely to have chronic migraines: ? Having migraines or family members who have them. ? Having a mental health condition, such as being sad (depressed) or feeling worried or nervous (anxious). ? Taking a lot of pain medicine. ? Having sleep problems. ? Having heart disease, diabetes, or being very overweight (obese). What are the signs or symptoms? Symptoms vary for each person. The pain may: ? Feel like it is pulsing or throbbing. ? Happen only on one side of the head. In some cases, the pain may be on both sides of the head or around the head or neck. ? Be so bad that it keeps you from doing daily activities. ? Get worse with activity. ? Make you feel like you may vomit (feel nauseous) or vomit. ? Get worse around bright lights, loud noises, or smells. ? Cause you to feel dizzy. A sign that you may have chronic migraines is when you start to have more and more migraines. How is this treated? This condition is treated with medicines that: ? Lessen pain and the feeling like you may vomit. ? Prevent migraines. Treatment may also include: ? Acupuncture. ? Changes to your diet or sleep. ? Relaxation training. ? Learning ways to control your body and breathing (biofeedback). ? Talk therapy to help you know and deal with negative thoughts (cognitive behavioral therapy). ? Using a device that gives electrical stimulation to your nerves, which can help take away pain. ? A shot of medicine into the muscles of the face or head. ? Surgery, if the other treatments do not work. Follow these instructions at home: Medicines ? Take cxrx-prv-hzyzfay and prescription medicines only as told by your doctor. ? Ask your doctor if the medicine prescribed to you requires you to avoid driving or using machinery. Lifestyle ? Do not drink alcohol. ? Do not smoke or use any products that contain nicotine or tobacco. If you need help quitting, ask your doctor. ? Get 7-9 hours of sleep every night, or the amount of sleep recommended by your doctor. ? Lower the stress in your life. Ask your doctor about ways to do this. ? Stay at a healthy weight. Talk with your doctor if you need help losing weight. ? Get regular exercise. General instructions ? Keep a journal to find out if certain things bring on migraines. This can help you avoid those things. For example, write down: ? What you eat and drink. ? How much sleep you get. ? Any change to your diet or medicines. ? Lie down in a dark, quiet room when you have a migraine. ? Try placing a cool towel over your head when you have a migraine. ? Keep lights dim if bright lights bother you or make your migraines worse. Where to find more information ? Coalition for Headache and Migraine Patients (CHAMP): headachemigraine.org ? [place] [employer] Foundation: americanmigrainefoundation.org ? National Headache Foundation: headaches.org Contact a doctor if: ? Medicine does not help your migraine. ? Your pain keeps coming back even with medicine. Get help right away if: ? Your migraine becomes really bad and medicine does not help. ? You have a fever or stiff neck. ? You have trouble seeing. ? Your muscles are weak or you lose control of them. ? You lose your balance or have trouble walking. ? You feel like you may faint or you faint. ? You start having sudden, very bad headaches. ? You have a seizure. This information is not intended to replace advice given to you by your health care provider. Make sure you discuss any questions you have with your health care provider. Document Revised: 06/16/2023 Document Reviewed: 06/16/2023 [employer] Patient Education ? 2023 [employer] Orthopedics Cervical Radiculopathy Follow-up with your surgeon for treatment of your neck pain radiating into the right (more content not included)... [facility] 08-11-2024 Hospital Discharge instructions Patient Education 08/11/2024 15:31:04 Steps to Quit Smoking Steps to Quit Smoking Smoking tobacco is the leading cause of preventable . It can affect almost every organ in the body. Smoking puts you and those around you at risk for developing many serious chronic diseases. Quitting smoking can be very challenging. Do not get discouraged if you are not successful the first time. Some people need to make many attempts to quit before they achieve long-term success. Do your best to stick to your quit plan, and talk with your health care provider if you have any questions or concerns. How do I get ready to quit? When you decide to quit smoking, create a plan to help you succeed. Before you quit: Pick a date to quit. Set a date within the next 2 weeks to give you time to prepare. Write down the reasons why you are quitting. Keep this list in places where you will see it often. Tell your family, friends, and co-workers that you are quitting. Support from people you are close to can make quitting easier. Talk with your health care provider about your options for quitting smoking. Find out what treatment options are covered by your health insurance. Identify people, places, things, and activities that make you want to smoke (triggers). Avoid them. What first steps can I take to quit smoking? Throw away all cigarettes at home, at work, and in your car. Throw away smoking accessories, such as ashtrays and lighters. Clean your car. Make sure to empty the ashtray. Clean your home, including curtains and carpets. What strategies can I use to quit smoking? Talk with your health care provider about combining strategies, such as taking medicines while you are also receiving in-person counseling. Using these two strategies together makes you more likely to succeed in quitting than if you used either strategy on its own. If you are or , talk with your health care provider about finding counseling or other support strategies to quit smoking. Do not take medicine to help you quit smoking unless your health care provider tells you to. Quit right away Quit smoking completely, instead of gradually reducing how much you smoke over a period of time. Stopping smoking right away may be more successful than gradually quitting. Attend in-person counseling to help you build problem-solving skills. You are more likely to succeed in quitting if you attend counseling sessions regularly. Even short sessions of 10 minutes can be effective. Take medicine You may take medicines to help you quit smoking. Some medicines require a prescription. You can also purchase ipgh-jcd-jdedhre medicines. Medicines may have nicotine in them to replace the nicotine in cigarettes. Medicines may: Help to stop cravings. Help to relieve withdrawal symptoms. Your health care provider may recommend: Nicotine patches, gum, or lozenges. Nicotine inhalers or sprays. Non-nicotine medicine that you take by mouth. Find resources Find resources and support systems that can help you quit smoking and remain smoke-free after you quit. These resources are most helpful when you use them often. They include: Online chats with a counselor. Telephone quitlines. Printed self-help materials. Support groups or group counseling. Text messaging programs. Mobile phone apps or applications. Use apps that can help you stick to your quit plan by providing reminders, tips, and encouragement. Examples of free services include Quit Guide from the CDC and smokefree.gov What can I do to make it easier to quit? Reach out to your family and friends for support and encouragement. Call telephone quitlines, such as 1-593-OXDN-NOW, reach out to support groups, or work with a counselor for support. Ask people who smoke to avoid smoking around you. Avoid places that trigger you to smoke, such as bars, parties, or smoke-break areas at work. Spend time with people who do not smoke. Lessen the stress in your life. Stress can be a smoking trigger for some people. To lessen stress, try: ?Exercising regularly. ?Doing deep-breathing exercises. ?Doing yoga. ?Meditating. What benefits will I see if I quit smoking? Over time, you should start to see positive results, such as: Improved sense of smell and taste. Decreased coughing and sore throat. Slower heart rate. Lower blood pressure. Clearer and healthier skin. The ability to breathe more easily. Fewer sick days. Summary Quitting smoking can be very challenging. Do not get discouraged if you are not successful the first time. Some people need to make many attempts to quit before they achieve long-term success. When you decide to quit smoking, create a plan to help you succeed. Quit smoking right away, not slowly over a period of time. Find resources and support systems that can help you quit smoking and remain smoke-free after you quit. This information is not intended to replace advice given to you by your health care provider. Make sure you discuss any questions you have with your health care provider. Document Revised: 10/11/2022 Document Reviewed: 10/11/2022 Elsevier Patient Education 2023 [employer]. Follow Up Care 05/18/2024 12:56:29 With:Dm ANDINO, XAVIER Boucher, PED Address: [address] [place] [address] [phone] When:3 months Comments:20 min slotcyclobenzaprine 5mg twice a daymeloxicam 7.5mg dailyhave the surgeon send us notesf/u 3 months [facility] [place] 08-11-2024 Note Patient Education Pulmonary Medicine Steps to Quit Smoking Smoking tobacco is the leading cause of preventable . It can affect almost every organ in the body. Smoking puts you and those around you at risk for developing many serious chronic diseases. Quitting smoking can be very challenging. Do not get discouraged if you are not successful the first time. Some people need to make many attempts to quit before they achieve long-term success. Do your best to stick to your quit plan, and talk with your health care provider if you have any questions or concerns. How do I get ready to quit? When you decide to quit smoking, create a plan to help you succeed. Before you quit: ? Pick a date to quit. Set a date within the next 2 weeks to give you time to prepare. ? Write down the reasons why you are quitting. Keep this list in places where you will see it often. ? Tell your family, friends, and co-workers that you are quitting. Support from people you are close to can make quitting easier. ? Talk with your health care provider about your options for quitting smoking. ? Find out what treatment options are covered by your health insurance. ? Identify people, places, things, and activities that make you want to smoke (triggers). Avoid them. What first steps can I take to quit smoking? ? Throw away all cigarettes at home, at work, and in your car. ? Throw away smoking accessories, such as ashtrays and lighters. ? Clean your car. Make sure to empty the ashtray. ? Clean your home, including curtains and carpets. What strategies can I use to quit smoking? Talk with your health care provider about combining strategies, such as taking medicines while you are also receiving in-person counseling. Using these two strategies together makes you more likely to succeed in quitting than if you used either strategy on its own. If you are or , talk with your health care provider about finding counseling or other support strategies to quit smoking. Do not take medicine to help you quit smoking unless your health care provider tells you to. Quit right away ? Quit smoking completely, instead of gradually reducing how much you smoke over a period of time. Stopping smoking right away may be more successful than gradually quitting. ? Attend in-person counseling to help you build problem-solving skills. You are more likely to succeed in quitting if you attend counseling sessions regularly. Even short sessions of 10 minutes can be effective. Take medicine You may take medicines to help you quit smoking. Some medicines require a prescription. You can also purchase viec-jbm-igrmnpl medicines. Medicines may have nicotine in them to replace the nicotine in cigarettes. Medicines may: ? Help to stop cravings. ? Help to relieve withdrawal symptoms. Your health care provider may recommend: ? Nicotine patches, gum, or lozenges. ? Nicotine inhalers or sprays. ? Non-nicotine medicine that you take by mouth. Find resources Find resources and support systems that can help you quit smoking and remain smoke-free after you quit. These resources are most helpful when you use them often. They include: ? Online chats with a counselor. ? Telephone quitlines. ? Printed self-help materials. ? Support groups or group counseling. ? Text messaging programs. ? Mobile phone apps or applications. Use apps that can help you stick to your quit plan by providing reminders, tips, and encouragement. Examples of free services include Quit Guide from the CDC and smokefree.gov What can I do to make it easier to quit? ? Reach out to your family and friends for support and encouragement. Call telephone quitlines, such as 1-738-AYDS-NOW, reach out to support groups, or work with a counselor for support. ? Ask people who smoke to avoid smoking around you. ? Avoid places that trigger you to smoke, such as bars, parties, or smoke-break areas at work. ? Spend time with people who do not smoke. ? Lessen the stress in your life. Stress can be a smoking trigger for some people. To lessen stress, try: ? Exercising regularly. ? Doing deep-breathing exercises. ? Doing yoga. ? Meditating. What benefits will I see if I quit smoking? Over time, you should start to see positive results, such as: ? Improved sense of smell and taste. ? Decreased coughing and sore throat. ? Slower heart rate. ? Lower blood pressure. ? Clearer and healthier skin. ? The ability to breathe more easily. ? Fewer sick days. Summary ? Quitting smoking can be very challenging. Do not get discouraged if you are not successful the first time. Some people need to make many attempts to quit before they achieve long-term success. ? When you decide to quit smoking, create a plan to help you succeed. ? Quit smoking right away, not slowly over a period of time. ? Find resources and support systems that can (more content not included)... [place] 07-19-2024 Note Education Materials Orthopedics Muscle Strain A muscle strain is an injury that occurs when a muscle is stretched beyond its normal length. Usually, a small number of muscle fibers are torn when this happens. There are three types of muscle strains. First-degree strains have the least amount of muscle fiber tearing and the least amount of pain. Second-degree and third-degree strains have more tearing and pain. Usually, recovery from muscle strain takes 1?2 weeks. Complete healing normally takes 5?6 weeks. What are the causes? This condition is caused when a sudden, violent force is placed on a muscle and stretches it too far. This may occur with a fall, while lifting, or during sports. What increases the risk? This condition is more likely to develop in athletes and people who are physically active. What are the signs or symptoms? Symptoms of this condition include: ? Pain. ? Tenderness. ? Bruising. ? Swelling. ? Trouble using the muscle. How is this diagnosed? This condition is diagnosed based on a physical exam and your medical history. Tests may also be done, including an X-ray, ultrasound, or MRI. How is this treated? This condition is initially treated with TREVIÑO therapy. This therapy involves: ? Protecting the muscle from being injured again. ? Resting the injured muscle. ? Icing the injured muscle. ? Applying pressure (compression) to the injured muscle. This may be done with a splint or elastic bandage. ? Raising (elevating) the injured muscle. Your health care provider may also recommend medicine for pain. Follow these instructions at home: If you have a removable splint: ? Wear the splint as told by your health care provider. Remove it only as told by your health care provider. ? Check the skin around the splint every day. Tell your health care provider about any concerns. ? Loosen the splint if your fingers or toes tingle, become numb, or turn cold and blue. ? Keep the splint clean. ? If the splint is not waterproof: ? Do not let it get wet. ? Cover it with a watertight covering when you take a bath or a shower. Managing pain, stiffness, and swelling ? If directed, put ice on the injured area. To do this: ? If you have a removable splint, remove it as told by your health care provider. ? Put ice in a plastic bag. ? Place a towel between your skin and the bag. ? Leave the ice on for 20 minutes, 2?3 times a day. ? Remove the ice if your skin turns bright red. This is very important. If you cannot feel pain, heat, or cold, you have a greater risk of damage to the area. ? Move your fingers or toes often to reduce stiffness and swelling. ? Raise (elevate) the injured area above the level of your heart while you are sitting or lying down. ? Wear an elastic bandage as told by your health care provider. Make sure that it is not too tight. General instructions ? Take oxrz-gdh-ixlqale and prescription medicines only as told by your health care provider. Treatment may include muscle relaxants or medicines for pain and inflammation that are taken by mouth or applied to the skin. ? Restrict your activity and rest the injured muscle as told by your health care provider. Gentle movements may be allowed. ? If physical therapy was prescribed, do exercises as told by your health care provider. ? Do not put pressure on any part of the splint until it is fully hardened. This may take several hours. ? Do not use any products that contain nicotine or tobacco. These products include cigarettes, chewing tobacco, and vaping devices, such as e-cigarettes. If you need help quitting, ask your health care provider. ? Ask your health care provider when it is safe to drive if you have a splint. ? Keep all follow-up visits. This is important. How is this prevented? Warm up before exercising. This helps to prevent future muscle strains. Contact a health care provider if: ? You have more pain or swelling in the injured area. Get help right away if: ? You have numbness or tingling in the injured area. ? You lose a lot of strength in the injured area. Summary ? A muscle strain is an injury that occurs when a muscle is stretched beyond its normal length. ? This condition is caused when a sudden, violent force is placed on a muscle and stretches it too far. ? This condition is initially treated with TREVIÑO therapy, which involves protecting, resting, icing, compressing, and elevating. ? Gentle movements may be allowed. If physical therapy was prescribed, do exercises as told by your health care provider. This information is not intended to replace advice given to you by your health care provider. Make sure you discuss any questions you have with your health care provider. Document Revised: 01/07/2022 Document Reviewed: 01/07/2022 [employer] Patient Education ? [facility] Education Materials Cardiovascular Hypertension, Adult Hypertension is another name for high blood pressure. High blood pressure forces your heart to work harder to pump blood. This can cause problems over time. There are two numbers in a blood pressure reading. There is a top number (systolic) over a bottom number (diastolic). It is best to have a blood pressure that is below 120/80. What are the causes? The cause of this condition is not known. Some other conditions can lead to high blood pressure. What increases the risk? Some lifestyle factors can make you more likely to develop high blood pressure: ? Smoking. ? Not getting enough exercise or physical activity. ? Being overweight. ? Having too much fat, sugar, calories, or salt (sodium) in your diet. ? Drinking too much alcohol. Other risk factors include: ? Having any of these conditions: ? Heart disease. ? Diabetes. ? High cholesterol. ? Kidney disease. ? Obstructive sleep apnea. ? Having a family history of high blood pressure and high cholesterol. ? Age. The risk increases with age. ? Stress. What are the signs or symptoms? High blood pressure may not cause symptoms. Very high blood pressure (hypertensive crisis) may cause: ? Headache. ? Fast or uneven heartbeats (palpitations). ? Shortness of breath. ? Nosebleed. ? Vomiting or feeling like you may vomit (nauseous). ? Changes in how you see. ? Very bad chest pain. ? Feeling dizzy. ? Seizures. How is this treated? ? This condition is treated by making healthy lifestyle changes, such as: ? Eating healthy foods. ? Exercising more. ? Drinking less alcohol. ? Your doctor may prescribe medicine if lifestyle changes do not help enough and if: ? Your top number is above 130. ? Your bottom number is above 80. ? Your personal target blood pressure may vary. Follow these instructions at home: Eating and drinking ? If told, follow the DASH eating plan. To follow this plan: ? Fill one half of your plate at each meal with fruits and vegetables. ? Fill one fourth of your plate at each meal with whole grains. Whole grains include whole-wheat pasta, brown rice, and whole-grain bread. ? Eat or drink low-fat dairy products, such as skim milk or low-fat yogurt. ? Fill one fourth of your plate at each meal with low-fat (lean) proteins. Low-fat proteins include fish, chicken without skin, eggs, beans, and tofu. ? Avoid fatty meat, cured and processed meat, or chicken with skin. ? Avoid pre-made or processed food. ? Limit the amount of salt in your diet to less than 1,500 mg each day. ? Do not drink alcohol if: ? Your doctor tells you not to drink. ? You are , may be , or are planning to become . ? If you drink alcohol: ? Limit how much you have to: ? 0?1 drink a day for women. ? 0?2 drinks a day for men. ? Know how much alcohol is in your drink. In the [place] one drink equals one 12 oz bottle of beer (355 mL), one 5 oz glass of wine (148 mL), or one 1? oz glass of hard liquor (44 mL). Lifestyle ? Work with your doctor to stay at a healthy weight or to lose weight. Ask your doctor what the best weight is for you. ? Get at least 30 minutes of exercise that causes your heart to beat faster (aerobic exercise) most days of the week. This may include walking, swimming, or biking. ? Get at least 30 minutes of exercise that strengthens your muscles (resistance exercise) at least 3 days a week. This may include lifting weights or doing Pilates. ? Do not smoke or use any products that contain nicotine or tobacco. If you need help quitting, ask your doctor. ? Check your blood pressure at home as told by your doctor. ? Keep all follow-up visits. Medicines ? Take bjoh-ebl-gfwizir and prescription medicines only as told by your doctor. Follow directions carefully. ? Do not skip doses of blood pressure medicine. The medicine does not work as well if you skip doses. Skipping doses also puts you at risk for problems. ? Ask your doctor about side effects or reactions to medicines that you should watch for. Contact a doctor if: ? You think you are having a reaction to the medicine you are taking. ? You have headaches that keep coming back. ? You feel dizzy. ? You have swelling in your ankles. ? You have trouble with your vision. Get help right away if: ? You get a very bad headache. ? You start to feel mixed up (confused). ? You feel weak or numb. ? You feel faint. ? You have very bad pain in your: ? Chest. ? Belly (abdomen). ? You vomit more than once. ? You have trouble breathing. These symptoms may be an emergency. Get help right away. Call 911. ? Do not wait to see if the symptoms will go away. ? Do not drive yourself to the hospital. Summary ? Hypertension is another name for high blood pressure. ? High blood pressure forces your heart to work harder to (more content not included)... [facility] 05-18-2024 Hospital Discharge instructions Patient Education 05/18/2024 12:23:10 Living With Attention Deficit Hyperactivity Disorder Living With Attention Deficit Hyperactivity Disorder If you have been diagnosed with attention deficit hyperactivity disorder (ADHD), you may be relieved that you now know why you have felt or behaved a certain way. Still, you may feel overwhelmed about the treatment ahead. You may also wonder how to get the support you need and how to deal with the condition day-to-day. With treatment and support, you can live with ADHD and manage your symptoms. How to manage lifestyle changes Managing lifestyle changes can be challenging. Seeking support from your healthcare provider, therapist, family, and friends can be helpful. How to recognize changes in your condition The following signs may mean that your treatment is working well and your condition is improving: Consistently being on time for appointments. Being more organized at home and work. Other people noticing improvements in your behavior. Achieving goals that you set for yourself. Thinking more clearly. The following signs may mean that your treatment is not working very well: Feeling impatience or more confusion. Missing, forgetting, or being late for appointments. An increasing sense of disorganization and messiness. More difficulty in reaching goals that you set for yourself. Loved ones becoming angry or frustrated with you. Follow these instructions at home: Medicines Take kepe-unb-xqjdczj and prescription medicines only as told by your health care provider. Check with your health care provider before taking any new medicines. General instructions Create structure and an organized atmosphere at home. For example: ?Make a list of tasks, then rank them from most important to least important. Work on one task at a time until your listed tasks are done. ?Make a daily schedule and follow it consistently every day. ?Use an appointment calendar, and check it 2 3 times a day to keep on track. Keep it with you when you leave the house. ?Create spaces where you keep certain things, and always put things back in their places after you use them. Keep all follow-up visits. Your health care provider will need to monitor your condition and adjust your treatment over time. Where to find support Talking to others Keep emotion out of important discussions and speak in a calm, logical way. Listen closely and patiently to your loved ones. Try to understand their point of view, and try to avoid getting defensive. Take responsibility for the consequences of your actions. Ask that others do not take your behaviors personally. Aim to solve problems as they come up, and express your feelings instead of bottling them up. Talk openly about what you need from your loved ones and how they can support you. Consider going to family therapy sessions or having your family meet with a specialist who deals with ADHD-related behavior problems. Finances Not all insurance plans cover mental health care, so it is important to check with your insurance carrier. If paying for co-pays or counseling services is a problem, search for a local or [facility] mental health care center. Public mental health care services may be offered there at a low cost or no cost when you are not able to see a private health care provider. If you are taking medicine for ADHD, you may be able to get the generic form, which may be less expensive than brand-name medicine. Some makers of prescription medicines also offer help to patients who cannot afford the medicines that they need. Therapy and support groups Talking with a mental health care provider and participating in support groups can help to improve your quality of life, daily functioning, and overall symptoms. Questions to ask your health care provider: What are the risks and benefits of taking medicines? Would I benefit from therapy? How often should I follow up with a health care provider? Where to find more information Learn more about ADHD from: Children and Adults with Attention Deficit Hyperactivity Disorder: marina.org National [place] of Mental Health: nimh.nih.gov Centers for Disease Control and Prevention: cdc.gov Contact a health care provider if: You have side effects from your medicines, such as: ?Repeated muscle twitches, coughing, or speech outbursts. ?Sleep problems. ?Loss of appetite. ?Dizziness. ?Unusually fast heartbeat. ?Stomach pains. ?Headaches. You have new or worsening behavior problems. You are struggling with anxiety, depression, or substance abuse. Get help right away if: You have a severe reaction to a medicine. These symptoms may be an emergency. Get help right away. Call 911. Do not wait to see if the symptoms will go away. Do not drive yourself to the hospital. Take one of these steps if you feel like you may hurt yourself or others, or have thoughts about taking your own life: Go to your nearest emergency room. Call 911. Call the National Suicide Prevention Lifeline at or 455. This is open 24 hours a day. Text the Crisis Text Line at 205320. Summary With treatment and support, you can live with ADHD and manage your symptoms. Consider taking part in family therapy or self-help groups with family members or friends. When you talk with friends and family about your ADHD, be patient and communicate openly. Keep all follow-up visits. Your health care provider will need to monitor your condition and adjust your treatment over time. This information is not intended to replace advice given to you by your health care provider. Make sure you discuss any questions you have with your health care provider. Document Revised: 02/07/2023 Document Reviewed: 02/07/2023 [employer] Patient Education 2022 [employer] Follow Up Care 02/24/2024 18:03:00 With:Romeo Chaidez DO, FAM, PED Address: [address] [place] [id number] When:3 months Comments:[address] for lung cancer screeningI have updated your med list todayThe book I recommend is Crucial Conversations 3 months f/u [facility] [place] 05-18-2024 Note Patient Education Mental and Behavioral Health Living With Attention Deficit Hyperactivity Disorder If you have been diagnosed with attention deficit hyperactivity disorder (ADHD), you may be relieved that you now know why you have felt or behaved a certain way. Still, you may feel overwhelmed about the treatment ahead. You may also wonder how to get the support you need and how to deal with the condition day-to-day. With treatment and support, you can live with ADHD and manage your symptoms. How to manage lifestyle changes Managing lifestyle changes can be challenging. Seeking support from your healthcare provider, therapist, family, and friends can be helpful. How to recognize changes in your condition The following signs may mean that your treatment is working well and your condition is improving: ? Consistently being on time for appointments. ? Being more organized at home and work. ? Other people noticing improvements in your behavior. ? Achieving goals that you set for yourself. ? Thinking more clearly. The following signs may mean that your treatment is not working very well: ? Feeling impatience or more confusion. ? Missing, forgetting, or being late for appointments. ? An increasing sense of disorganization and messiness. ? More difficulty in reaching goals that you set for yourself. ? Loved ones becoming angry or frustrated with you. Follow these instructions at home: Medicines ? Take tiba-iyk-hujrwqx and prescription medicines only as told by your health care provider. ? Check with your health care provider before taking any new medicines. General instructions ? Create structure and an organized atmosphere at home. For example: ? Make a list of tasks, then rank them from most important to least important. Work on one task at a time until your listed tasks are done. ? Make a daily schedule and follow it consistently every day. ? Use an appointment calendar, and check it 2?3 times a day to keep on track. Keep it with you when you leave the house. ? Create spaces where you keep certain things, and always put things back in their places after you use them. ? Keep all follow-up visits. Your health care provider will need to monitor your condition and adjust your treatment over time. Where to find support Talking to others ? Keep emotion out of important discussions and speak in a calm, logical way. ? Listen closely and patiently to your loved ones. Try to understand their point of view, and try to avoid getting defensive. ? Take responsibility for the consequences of your actions. ? Ask that others do not take your behaviors personally. ? Aim to solve problems as they come up, and express your feelings instead of bottling them up. ? Talk openly about what you need from your loved ones and how they can support you. ? Consider going to family therapy sessions or having your family meet with a specialist who deals with ADHD-related behavior problems. Finances Not all insurance plans cover mental health care, so it is important to check with your insurance carrier. If paying for co-pays or counseling services is a problem, search for a [facility] mental health care center. Public mental health care services may be offered there at a low cost or no cost when you are not able to see a private health care provider. If you are taking medicine for ADHD, you may be able to get the generic form, which may be less expensive than brand-name medicine. Some makers of prescription medicines also offer help to patients who cannot afford the medicines that they need. Therapy and support groups Talking with a mental health care provider and participating in support groups can help to improve your quality of life, daily functioning, and overall symptoms. Questions to ask your health care provider: ? What are the risks and benefits of taking medicines? ? Would I benefit from therapy? ? How often should I follow up with a health care provider? Where to find more information Learn more about ADHD from: ? Children and Adults with Attention Deficit Hyperactivity Disorder: marina.org ? National Jackson of Mental Health: nimh.nih.gov ? Centers for Disease Control and Prevention: cdc.gov Contact a health care provider if: ? You have side effects from your medicines, such as: ? Repeated muscle twitches, coughing, or speech outbursts. ? Sleep problems. ? Loss of appetite. ? Dizziness. ? Unusually fast heartbeat. ? Stomach pains. ? Headaches. ? You have new or worsening behavior problems. ? You are struggling with anxiety, depression, or substance abuse. Get help right away if: ? You have a severe reaction to a medicine. These symptoms may be an emergency. Get help right away. Call 911. ? Do not wait to see if the symptoms will go away. ? Do not drive yourself to the hospital. Take one of these steps if you feel like you may hurt yourself or others, or (more content not included)... [place] 04-14-2024 Note [phone] [id number] 04-14-2024 Note Education Materials Neurology Occipital Neuralgia Occipital neuralgia is a type of headache that causes brief episodes of very bad pain in the back of the head. Pain from occipital neuralgia may spread (radiate) to other parts of the head. These headaches may be caused by irritation of the nerves that leave the spinal cord high up in the neck, just below the base of the skull (occipital nerves). The occipital nerves transmit sensations from the back of the head, the top of the head, and the areas behind the ears. What are the causes? This condition can occur without any known cause (primary headache syndrome). In other cases, this condition is caused by pressure on or irritation of one of the two occipital nerves. Pressure and irritation may be due to: ? Muscle spasm in the neck. ? Neck injury. ? Wear and tear of the vertebrae in the neck (osteoarthritis). ? Disease of the disks that separate the vertebrae. ? Swollen blood vessels that put pressure on the occipital nerves. ? Infections. ? Tumors. ? Diabetes. What are the signs or symptoms? This condition causes brief burning, stabbing, electric, shocking, or shooting pain in the back of the head that can radiate to the top of the head. It can happen on one side or both sides of the head. It can also cause: ? Pain behind the eye. ? Pain triggered by neck movement or hair brushing. ? Scalp tenderness. ? Aching in the back of the head between episodes of very bad pain. ? Pain that gets worse with exposure to bright lights. How is this diagnosed? Your health care provider may diagnose the condition based on a physical exam and your symptoms. Tests may be done, such as: ? Imaging studies of the brain and neck (cervical spine), such as an MRI or CT scan. These look for causes of pinched nerves. ? Applying pressure to the nerves in the neck to try to re-create the pain. ? Injection of numbing medicine into the occipital nerve areas to see if pain goes away (diagnostic nerve block). How is this treated? Treatment for this condition may begin with simple measures, such as: ? Rest. ? Massage. ? Applying heat or cold to the area. ? Qjzc-lrj-onxhjwe pain relievers. If these measures do not work, you may need other treatments, including: ? Medicines, such as: ? Prescription-strength anti-inflammatory medicines. ? Muscle relaxants. ? Anti-seizure medicines, which can relieve pain. ? Antidepressants, which can relieve pain. ? Injected medicines, such as medicines that numb the area (local anesthetic) and steroids. ? Pulsed radiofrequency ablation. This is when wires are implanted to deliver electrical impulses that block pain signals from the occipital nerve. ? Surgery to relieve nerve pressure. ? Physical therapy. Follow these instructions at home: Managing pain ? Avoid any activities that cause pain. ? Rest when you have an attack of pain. ? Try gentle massage to relieve pain. ? Try a different pillow or sleeping position. ? If directed, apply heat to the affected area as often as told by your health care provider. Use the heat source that your health care provider recommends, such as a moist heat pack or a heating pad. ? Place a towel between your skin and the heat source. ? Leave the heat on for 20?30 minutes. ? Remove the heat if your skin turns bright red. This is especially important if you are unable to feel pain, heat, or cold. You have a greater risk of getting burned. ? If directed, put ice on the back of your head and neck area. To do this: ? Put ice in a plastic bag. ? Place a towel between your skin and the bag. ? Leave the ice on for 20 minutes, 2?3 times a day. ? Remove the ice if your skin turns bright red. This is very important. If you cannot feel pain, heat, or cold, you have a greater risk of damage to the area. General instructions ? Take bxax-uwq-zrhsdif and prescription medicines only as told by your health care provider. ? Avoid things that make your symptoms worse, such as bright lights. ? Try to stay active. Get regular exercise that does not cause pain. Ask your health care provider to suggest safe exercises for you. ? Work with a physical therapist to learn stretching exercises you can do at home. ? Practice good posture. ? Keep all follow-up visits. This is important. Contact a health care provider if: ? Your medicine is not working. ? You have new or worsening symptoms. Get help right away if: ? You have very bad head pain that does not go away. ? You have a sudden change in vision, balance, or speech. These symptoms may represent a serious problem that is an emergency. Do not wait to see if the symptoms will go away. Get medical help right away. Call your local emergency services (911 in the [place] Do not drive yourself to the hospital. Summary ? O (more content not included)... [facility] 02-24-2024 Hospital Discharge instructions Patient Education 02/24/2024 17:53:49 Attention Deficit Hyperactivity Disorder, Adult Attention Deficit Hyperactivity Disorder, Adult Attention deficit hyperactivity disorder (ADHD) is a mental health disorder that starts during childhood. For many people with ADHD, the disorder continues into the adult years. Treatment can help you manage your symptoms. There are three main types of ADHD: Inattentive. With this type, adults have difficulty paying attention. This may affect cognitive abilities. Hyperactive-impulsive. With this type, adults have a lot of energy and have difficulty controlling their behavior. Combination type. Some people may have symptoms of both types. What are the causes? The exact cause of ADHD is not known. Most experts believe a person's genes and environment possibly contribute to ADHD. What increases the risk? The following factors may make you more likely to develop this condition: Having a first-degree relative such as a parent, brother, or sister, with the condition. Being born before 37 weeks of (prematurely) or at a low weight. Being born to a mother who smoked tobacco or drank alcohol during . Having experienced a brain injury. Being exposed to lead or other toxins in the womb or early in life. What are the signs or symptoms? Symptoms of this condition depend on the type of ADHD. Symptoms of the inattentive type include: Difficulty paying attention or following instructions. Often making simple mistakes. Being disorganized. Avoiding tasks that require time and attention. Losing and forgetting things. Symptoms of the hyperactive-impulsive type include: Restlessness. Talking out of turn, interrupting others, or talking too much. Difficulty with: ?Sitting still. ?Feeling motivated. ?Relaxing. ?Waiting in line or waiting for a turn. People with the combination type have symptoms of both of the other types. In adults, this condition may lead to certain problems, such as: Keeping jobs. Performing tasks at work. Having stable relationships. Being on time or keeping to a schedule. How is this diagnosed? This condition is diagnosed based on your current symptoms and your history of symptoms. The diagnosis can be made by a health care provider such as a primary care provider or a mental health career orientation teacher. Your health care provider may use a symptom checklist or a behavior rating scale to evaluate your symptoms. Your health care provider may also want to talk with people who have observed your behaviors throughout your life. How is this treated? This condition can be treated with medicines and behavior therapy. Medicines may be the best option to reduce impulsive behaviors and improve attention. Your health care provider may recommend: Stimulant medicines. These are the most common medicines used for adult ADHD. They affect certain chemicals in the brain (neurotransmitters) and improve your ability to control your symptoms. A non-stimulant medicine. These medicines can also improve focus, attention, and impulsive behavior. It may take weeks to months to see the effects of this medicine. Counseling and behavioral management are also important for treating ADHD. Counseling is often used along with medicine. Your health care provider may suggest: Cognitive behavioral therapy (CBT). This type of therapy teaches you to replace negative thoughts and actions with positive thoughts and actions. When used as part of ADHD treatment, this therapy may also include: ?Coping strategies for organization, time management, impulse control, and stress reduction. ?Mindfulness and meditation training. Behavioral management. You may work with a assistant women's basketball coach who is specially trained to help people with ADHD manage and organize activities and function more effectively. Follow these instructions at home: Medicines Take foiw-agk-nobtbxa and prescription medicines only as told by your health care provider. Talk with your health care provider about the possible side effects of your medicines and how to manage them. Alcohol use Do not drink alcohol if: ?Your health care provider tells you not to drink. ?You are , may be , or are planning to become . If you drink alcohol: ?Limit how much you use to: ?0 1 drink a day for women. ?0 2 drinks a day for men. ?Know how much alcohol is in your drink. In the [place] one drink equals one 12 oz bottle of beer (355 mL), one 5 oz glass of wine (148 mL), or one 1 oz glass of hard liquor (44 mL). Lifestyle Do not use illegal drugs. Get enough sleep. Eat a healthy diet. Exercise regularly. Exercise can help to reduce stress and anxiety. General instructions Learn as much as you can about adult ADHD, and work closely with your health care providers to find the treatments that work best for you. Follow the same schedule each day. Use reminder devices like notes, calendars, and phone apps to stay on time and organized. Keep all follow-up visits. Your health care provider will need to monitor your condition and adjust your treatment over time. Where to find more information A health care provider may be able to recommend resources that are available online or over the phone. You could start with: Attention Deficit Disorder Association (ADDA): add.org National Jackson of Mental Health (NIM): nimh.nih.gov Contact a health care provider if: Your symptoms continue to cause problems. You have side effects from your medicine, such as: ?Repeated muscle twitches, coughing, or speech outbursts. ?Sleep problems. ?Loss of appetite. ?Dizziness. ?Unusually fast heartbeat. ?Stomach pains. ?Headaches. You are struggling with anxiety, depression, or substance abuse. Get help right away if: You have a severe reaction to a medicine. This symptom may be an emergency. Get help right away. Call 911. Do not wait to see if the symptom will go away. Do not drive yourself to the hospital. Take one of these steps if you feel like you may hurt yourself or others, or have thoughts about taking your own life: Go to your nearest emergency room. Call 911. Call the National Suicide Prevention Lifeline at or 602. This is open 24 hours a day Text the Crisis Text Line at 412194. Summary ADHD is a mental health disorder that starts during childhood and often continues into your adult years. The exact cause of ADHD is not known. Most experts believe genetics and environmental factors contribute to ADHD. There is no cure for ADHD, but treatment with medicine, cognitive behavioral therapy, or behavioral management can help you manage your condition. This information is not intended to replace advice given to you by your health care provider. Make sure you discuss any questions you have with your health care provider. Document Revised: 02/07/2023 Document Reviewed: 02/07/2023 [employer] Patient Education 2022 [employer]. Follow Up Care 12/23/2023 18:06:46 With:Dm ANDINO, XAVIER Boucher, PED Address: [address] [place] [id number] When:3 months Comments:20 min slotTo go instructions:Read Driven to Distraction by Pablo Vital to learn more about ADHD https://www.Usersnap.Mindflash/slides hows/wkkt-dnbiuqpw-yepnm-off-our-f eet/*When you see providers outside of [facility], please request that they send office visit notes every time you're seen there - this helps us take better care of youFollow up 3 months [facility] [place] 02-03-2024 Note HNO ID: [id number] Author: REMIGIO TRUJILLO MD Service: ? Author Type: Physician Type: Progress Notes Filed: 02/03/2024 16:47 Note Text: [facility] STAFF PHYSICIAN NOTE OF PERSONAL INVOLVEMENT IN CARE I have reviewed the progress note obtained and documented by the physician stores assistant/registered nurse/fellow, and I personally participated in the beck components. I have discussed the case and management of the patient's care. SIGNATURE: Remigio Trujillo MD [facility] 02-03-2024 Note HNO ID: [id number] Author: SHAWANDA JORDAN APRN.LAURIE Service: ? Author Type: Nurse Practitioner Type: Progress Notes Filed: 02/03/2024 16:47 Note Text: Date: 02/02/2024 PROCEDURE: Syneron DANIELLE to face DIAGNOSIS: dyschromia Reviewed risks, benefits, alternatives, and personnel. Patient stated understanding and consents to proceed. SKIN TYPE: Mane # I ROOM SETUP: Laser safety checklist followed Doors closed Safety DANGER signs posted Laser instrumentation utilized Laser eyeware immediately accessible before entering OR EYE PROTECTION: Patient Physician Personnel MALFUNCTIONS / PROBLEMS ENCOUNTERED DURING SURGERY/PROCEDURE: Not applicable for this patient PROCEDURE: The patient was prepared with ultrasound gel. The laser settings were initially chosen at 24-28J/cm(2) - RF 25J/cm(3) to face and RF 15J/cm(3) to forehead. Pulses= 78 Dr. Trujillo performed the procedure. PAIN: No: 0 on a scale of 0 to 10 The patient tolerated the procedure well. Will return in 1-2 months. Syneron to face charge 200 for this visit, patient aware of increase in treviño for next visit The patient assessment/exam/plan performed by Remigio Trujillo M.D. and the above reflects their service. Scribed by Shawanda Jordan APRN.[facility] 02-03-2024 History of Present illness Narrative [facility] STAFF PHYSICIAN NOTE OF PERSONAL INVOLVEMENT IN CARE I have reviewed the progress note obtained and documented by the physician stores assistant/registered nurse/fellow, and I personally participated in the beck components. I have discussed the case and management of the patient's care. SIGNATURE: Remigio Trujillo MD Date: 02/02/2024 PROCEDURE: Syneron DANIELLE to face DIAGNOSIS: dyschromia Reviewed risks, benefits, alternatives, and personnel. Patient stated understanding and consents to proceed. SKIN TYPE: Mane # I ROOM SETUP: Laser safety checklist followed Doors closed Safety DANGER signs posted Laser instrumentation utilized Laser eyeware immediately accessible before entering OR EYE PROTECTION: Patient Physician Personnel MALFUNCTIONS / PROBLEMS ENCOUNTERED DURING SURGERY/PROCEDURE: Not applicable for this patient PROCEDURE: The patient was prepared with ultrasound gel. The laser settings were initially chosen at 24-28J/cm(2) - RF 25J/cm(3) to face and RF 15J/cm(3) to forehead. Pulses= 78 Dr. Trujillo performed the procedure. PAIN: No: 0 on a scale of 0 to 10 The patient tolerated the procedure well. Will return in 1-2 months. Syneron to face charge 200 for this visit, patient aware of increase in treviño for next visit The patient assessment/exam/plan performed by Remigio Trujillo M.D. and the above reflects their service. Scribed by Shawanda Jordan APRN.GUEST RELATIONS REPRESENTATIVE documented in this encounter [facility] 01-29-2024 Note Education Materials Cardiovascular Hypertension, Adult Blood pressure 134/91 Your blood pressure was noted to be elevated here in the emergency room. Monitor your blood pressure and follow-up with your primary care physician to review those readings. Return to the emergency department for any worsening symptoms. Hypertension is another name for high blood pressure. High blood pressure forces your heart to work harder to pump blood. This can cause problems over time. There are two numbers in a blood pressure reading. There is a top number (systolic) over a bottom number (diastolic). It is best to have a blood pressure that is below 120/80. What are the causes? The cause of this condition is not known. Some other conditions can lead to high blood pressure. What increases the risk? Some lifestyle factors can make you more likely to develop high blood pressure: ? Smoking. ? Not getting enough exercise or physical activity. ? Being overweight. ? Having too much fat, sugar, calories, or salt (sodium) in your diet. ? Drinking too much alcohol. Other risk factors include: ? Having any of these conditions: ? Heart disease. ? Diabetes. ? High cholesterol. ? Kidney disease. ? Obstructive sleep apnea. ? Having a family history of high blood pressure and high cholesterol. ? Age. The risk increases with age. ? Stress. What are the signs or symptoms? High blood pressure may not cause symptoms. Very high blood pressure (hypertensive crisis) may cause: ? Headache. ? Fast or uneven heartbeats (palpitations). ? Shortness of breath. ? Nosebleed. ? Vomiting or feeling like you may vomit (nauseous). ? Changes in how you see. ? Very bad chest pain. ? Feeling dizzy. ? Seizures. How is this treated? ? This condition is treated by making healthy lifestyle changes, such as: ? Eating healthy foods. ? Exercising more. ? Drinking less alcohol. ? Your doctor may prescribe medicine if lifestyle changes do not help enough and if: ? Your top number is above 130. ? Your bottom number is above 80. ? Your personal target blood pressure may vary. Follow these instructions at home: Eating and drinking ? If told, follow the DASH eating plan. To follow this plan: ? Fill one half of your plate at each meal with fruits and vegetables. ? Fill one fourth of your plate at each meal with whole grains. Whole grains include whole-wheat pasta, brown rice, and whole-grain bread. ? Eat or drink low-fat dairy products, such as skim milk or low-fat yogurt. ? Fill one fourth of your plate at each meal with low-fat (lean) proteins. Low-fat proteins include fish, chicken without skin, eggs, beans, and tofu. ? Avoid fatty meat, cured and processed meat, or chicken with skin. ? Avoid pre-made or processed food. ? Limit the amount of salt in your diet to less than 1,500 mg each day. ? Do not drink alcohol if: ? Your doctor tells you not to drink. ? You are , may be , or are planning to become . ? If you drink alcohol: ? Limit how much you have to: ? 0?1 drink a day for women. ? 0?2 drinks a day for men. ? Know how much alcohol is in your drink. In the [place] one drink equals one 12 oz bottle of beer (355 mL), one 5 oz glass of wine (148 mL), or one 1? oz glass of hard liquor (44 mL). Lifestyle ? Work with your doctor to stay at a healthy weight or to lose weight. Ask your doctor what the best weight is for you. ? Get at least 30 minutes of exercise that causes your heart to beat faster (aerobic exercise) most days of the week. This may include walking, swimming, or biking. ? Get at least 30 minutes of exercise that strengthens your muscles (resistance exercise) at least 3 days a week. This may include lifting weights or doing Pilates. ? Do not smoke or use any products that contain nicotine or tobacco. If you need help quitting, ask your doctor. ? Check your blood pressure at home as told by your doctor. ? Keep all follow-up visits. Medicines ? Take nhae-tsx-lcgiopq and prescription medicines only as told by your doctor. Follow directions carefully. ? Do not skip doses of blood pressure medicine. The medicine does not work as well if you skip doses. Skipping doses also puts you at risk for problems. ? Ask your doctor about side effects or reactions to medicines that you should watch for. Contact a doctor if: ? You think you are having a reaction to the medicine you are taking. ? You have headaches that keep coming back. ? You feel dizzy. ? You have swelling in your ankles. ? You have trouble with your vision. Get help right away if: ? You get a very bad headache. ? You start to feel mixed up (confused). ? You feel weak or numb. ? You feel faint. ? You have very bad pain in your: ? Chest. ? Belly (abdomen). ? You vomit more than once. ? You have trouble breathing. These symptoms may be an em (more content not included)... [facility] 2023 Note Education Materials Neurology Migraine Headache A migraine headache is a very strong throbbing pain on one side or both sides of your head. This type of headache can also cause other symptoms. It can last from 4 hours to 3 days. Talk with your doctor about what things may bring on (trigger) this condition. What are the causes? The exact cause of this condition is not known. This condition may be triggered or caused by: ? Drinking alcohol. ? Smoking. ? Taking medicines, such as: ? Medicine used to treat chest pain (nitroglycerin). ? control pills. ? Estrogen. ? Some blood pressure medicines. ? Eating or drinking certain products. ? Doing physical activity. Other things that may trigger a migraine headache include: ? Having a menstrual period. ? . ? Hunger. ? Stress. ? Not getting enough sleep or getting too much sleep. ? Weather changes. ? Tiredness (fatigue). What increases the risk? ? Being 25?55 years old. ? Being female. ? Having a family history of migraine headaches. ? Being . ? Having depression or anxiety. ? Being very overweight. What are the signs or symptoms? ? A throbbing pain. This pain may: ? Happen in any area of the head, such as on one side or both sides. ? Make it hard to do daily activities. ? Get worse with physical activity. ? Get worse around bright lights or loud noises. ? Other symptoms may include: ? Feeling sick to your stomach (nauseous). ? Vomiting. ? Dizziness. ? Being sensitive to bright lights, loud noises, or smells. ? Before you get a migraine headache, you may get warning signs (an aura). An aura may include: ? Seeing flashing lights or having blind spots. ? Seeing bright spots, halos, or zigzag lines. ? Having tunnel vision or blurred vision. ? Having numbness or a tingling feeling. ? Having trouble talking. ? Having weak muscles. ? Some people have symptoms after a migraine headache (postdromal phase), such as: ? Tiredness. ? Trouble thinking (concentrating). How is this treated? ? Taking medicines that: ? Relieve pain. ? Relieve the feeling of being sick to your stomach. ? Prevent migraine headaches. ? Treatment may also include: ? Having acupuncture. ? Avoiding foods that bring on migraine headaches. ? Learning ways to control your body functions (biofeedback). ? Therapy to help you know and deal with negative thoughts (cognitive behavioral therapy). Follow these instructions at home: Medicines ? Take wrof-ejz-oekqtit and prescription medicines only as told by your doctor. ? Ask your doctor if the medicine prescribed to you: ? Requires you to avoid driving or using heavy machinery. ? Can cause trouble pooping (constipation). You may need to take these steps to prevent or treat trouble pooping: ? Drink enough fluid to keep your pee (urine) pale yellow. ? Take yukk-sjs-cddaimp or prescription medicines. ? Eat foods that are high in fiber. These include beans, whole grains, and fresh fruits and vegetables. ? Limit foods that are high in fat and sugar. These include fried or sweet foods. Lifestyle ? Do not drink alcohol. ? Do not use any products that contain nicotine or tobacco, such as cigarettes, e-cigarettes, and chewing tobacco. If you need help quitting, ask your doctor. ? Get at least 8 hours of sleep every night. ? Limit and deal with stress. General instructions ? Keep a journal to find out what may bring on your migraine headaches. For example, write down: ? What you eat and drink. ? How much sleep you get. ? Any change in what you eat or drink. ? Any change in your medicines. ? If you have a migraine headache: ? Avoid things that make your symptoms worse, such as bright lights. ? It may help to lie down in a dark, quiet room. ? Do not drive or use heavy machinery. ? Ask your doctor what activities are safe for you. ? Keep all follow-up visits as told by your doctor. This is important. Contact a doctor if: ? You get a migraine headache that is different or worse than others you have had. ? You have more than 15 headache days in one month. Get help right away if: ? Your migraine headache gets very bad. ? Your migraine headache lasts longer than 72 hours. ? You have a fever. ? You have a stiff neck. ? You have trouble seeing. ? Your muscles feel weak or like you cannot control them. ? You start to lose your balance a lot. ? You start to have trouble walking. ? You pass out (faint). ? You have a seizure. Summary ? A migraine headache is a very strong throbbing pain on one side or both sides of your head. These headaches can also cause other symptoms. ? This condition may be treated with medicines and changes to your lifestyle. ? Keep a journal to find out what may bring on your migraine headaches. ? Contact a doctor if you get a migraine headache that is differe (more content not included)... [facility] 12-23-2023 Hospital Discharge instructions Patient Education 12/23/2023 17:44:31 Attention Deficit Hyperactivity Disorder, Adult Attention Deficit Hyperactivity Disorder, Adult Attention deficit hyperactivity disorder (ADHD) is a mental health disorder that starts during childhood. For many people with ADHD, the disorder continues into the adult years. Treatment can help you manage your symptoms. There are three main types of ADHD: Inattentive. With this type, adults have difficulty paying attention. This may affect cognitive abilities. Hyperactive-impulsive. With this type, adults have a lot of energy and have difficulty controlling their behavior. Combination type. Some people may have symptoms of both types. What are the causes? The exact cause of ADHD is not known. Most experts believe a person's genes and environment possibly contribute to ADHD. What increases the risk? The following factors may make you more likely to develop this condition: Having a first-degree relative such as a parent, brother, or sister, with the condition. Being born before 37 weeks of (prematurely) or at a low weight. Being born to a mother who smoked tobacco or drank alcohol during . Having experienced a brain injury. Being exposed to lead or other toxins in the womb or early in life. What are the signs or symptoms? Symptoms of this condition depend on the type of ADHD. Symptoms of the inattentive type include: Difficulty paying attention or following instructions. Often making simple mistakes. Being disorganized. Avoiding tasks that require time and attention. Losing and forgetting things. Symptoms of the hyperactive-impulsive type include: Restlessness. Talking out of turn, interrupting others, or talking too much. Difficulty with: ?Sitting still. ?Feeling motivated. ?Relaxing. ?Waiting in line or waiting for a turn. People with the combination type have symptoms of both of the other types. In adults, this condition may lead to certain problems, such as: Keeping jobs. Performing tasks at work. Having stable relationships. Being on time or keeping to a schedule. How is this diagnosed? This condition is diagnosed based on your current symptoms and your history of symptoms. The diagnosis can be made by a health care provider such as a primary care provider or a mental health career orientation teacher. Your health care provider may use a symptom checklist or a behavior rating scale to evaluate your symptoms. Your health care provider may also want to talk with people who have observed your behaviors throughout your life. How is this treated? This condition can be treated with medicines and behavior therapy. Medicines may be the best option to reduce impulsive behaviors and improve attention. Your health care provider may recommend: Stimulant medicines. These are the most common medicines used for adult ADHD. They affect certain chemicals in the brain (neurotransmitters) and improve your ability to control your symptoms. A non-stimulant medicine. These medicines can also improve focus, attention, and impulsive behavior. It may take weeks to months to see the effects of this medicine. Counseling and behavioral management are also important for treating ADHD. Counseling is often used along with medicine. Your health care provider may suggest: Cognitive behavioral therapy (CBT). This type of therapy teaches you to replace negative thoughts and actions with positive thoughts and actions. When used as part of ADHD treatment, this therapy may also include: ?Coping strategies for organization, time management, impulse control, and stress reduction. ?Mindfulness and meditation training. Behavioral management. You may work with a assistant women's basketball coach who is specially trained to help people with ADHD manage and organize activities and function more effectively. Follow these instructions at home: Medicines Take jrvl-ggt-hjdvkop and prescription medicines only as told by your health care provider. Talk with your health care provider about the possible side effects of your medicines and how to manage them. Alcohol use Do not drink alcohol if: ?Your health care provider tells you not to drink. ?You are , may be , or are planning to become . If you drink alcohol: ?Limit how much you use to: ?0 1 drink a day for women. ?0 2 drinks a day for men. ?Know how much alcohol is in your drink. In the [place] one drink equals one 12 oz bottle of beer (355 mL), one 5 oz glass of wine (148 mL), or one 1 oz glass of hard liquor (44 mL). Lifestyle Do not use illegal drugs. Get enough sleep. Eat a healthy diet. Exercise regularly. Exercise can help to reduce stress and anxiety. General instructions Learn as much as you can about adult ADHD, and work closely with your health care providers to find the treatments that work best for you. Follow the same schedule each day. Use reminder devices like notes, calendars, and phone apps to stay on time and organized. Keep all follow-up visits. Your health care provider will need to monitor your condition and adjust your treatment over time. Where to find more information A health care provider may be able to recommend resources that are available online or over the phone. You could start with: Attention Deficit Disorder Association (ADDA): add.org National Jackson of Mental Health (NIMH): nimh.nih.gov Contact a health care provider if: Your symptoms continue to cause problems. You have side effects from your medicine, such as: ?Repeated muscle twitches, coughing, or speech outbursts. ?Sleep problems. ?Loss of appetite. ?Dizziness. ?Unusually fast heartbeat. ?Stomach pains. ?Headaches. You are struggling with anxiety, depression, or substance abuse. Get help right away if: You have a severe reaction to a medicine. This symptom may be an emergency. Get help right away. Call 911. Do not wait to see if the symptom will go away. Do not drive yourself to the hospital. Take one of these steps if you feel like you may hurt yourself or others, or have thoughts about taking your own life: Go to your nearest emergency room. Call 911. Call the National Suicide Prevention Lifeline at or 248. This is open 24 hours a day Text the Crisis Text Line at 058585. Summary ADHD is a mental health disorder that starts during childhood and often continues into your adult years. The exact cause of ADHD is not known. Most experts believe genetics and environmental factors contribute to ADHD. There is no cure for ADHD, but treatment with medicine, cognitive behavioral therapy, or behavioral management can help you manage your condition. This information is not intended to replace advice given to you by your health care provider. Make sure you discuss any questions you have with your health care provider. Document Revised: 02/07/2023 Document Reviewed: 02/07/2023 [employer] Patient Education 2022 [employer]. Follow Up Care 09/17/2023 16:49:24 With:Dm ANDINO, XAVIER Boucher PED Address: [address] [place] [id number] When:3 months Comments:20 min slotTo go instructions:Continue Adderall as prescribedRead Driven to Distraction by Pablo Vital to learn more about ADHD [email or web address].Usersnap.Mindflash/slides hows/[email or web address]-lthgt-off-our-f eet/F/u every three months [facility] [place] 11-18-2023 Note Education Materials Neurology Migraine Headache A migraine headache is an intense, throbbing pain on one side or both sides of the head. Migraine headaches may also cause other symptoms, such as nausea, vomiting, and sensitivity to light and noise. A migraine headache can last from 4 hours to 3 days. Talk with your doctor about what things may bring on (trigger) your migraine headaches. What are the causes? The exact cause of this condition is not known. However, a migraine may be caused when nerves in the brain become irritated and release chemicals that cause inflammation of blood vessels. This inflammation causes pain. This condition may be triggered or caused by: ? Drinking alcohol. ? Smoking. ? Taking medicines, such as: ? Medicine used to treat chest pain (nitroglycerin). ? control pills. ? Estrogen. ? Certain blood pressure medicines. ? Eating or drinking products that contain nitrates, glutamate, aspartame, or tyramine. Aged cheeses, chocolate, or caffeine may also be triggers. ? Doing physical activity. Other things that may trigger a migraine headache include: ? Menstruation. ? . ? Hunger. ? Stress. ? Lack of sleep or too much sleep. ? Weather changes. ? Fatigue. What increases the risk? The following factors may make you more likely to experience migraine headaches: ? Being a certain age. This condition is more common in people who are 25?55 years old. ? Being female. ? Having a family history of migraine headaches. ? Being . ? Having a mental health condition, such as depression or anxiety. ? Being obese. What are the signs or symptoms? The main symptom of this condition is pulsating or throbbing pain. This pain may: ? Happen in any area of the head, such as on one side or both sides. ? Interfere with daily activities. ? Get worse with physical activity. ? Get worse with exposure to bright lights or loud noises. Other symptoms may include: ? Nausea. ? Vomiting. ? Dizziness. ? General sensitivity to bright lights, loud noises, or smells. Before you get a migraine headache, you may get warning signs (an aura). An aura may include: ? Seeing flashing lights or having blind spots. ? Seeing bright spots, halos, or zigzag lines. ? Having tunnel vision or blurred vision. ? Having numbness or a tingling feeling. ? Having trouble talking. ? Having muscle weakness. Some people have symptoms after a migraine headache (postdromal phase), such as: ? Feeling tired. ? Difficulty concentrating. How is this diagnosed? A migraine headache can be diagnosed based on: ? Your symptoms. ? A physical exam. ? Tests, such as: ? CT scan or an MRI of the head. These imaging tests can help rule out other causes of headaches. ? Taking fluid from the spine (lumbar puncture) and analyzing it (cerebrospinal fluid analysis, or CSF analysis). How is this treated? This condition may be treated with medicines that: ? Relieve pain. ? Relieve nausea. ? Prevent migraine headaches. Treatment for this condition may also include: ? Acupuncture. ? Lifestyle changes like avoiding foods that trigger migraine headaches. ? Biofeedback. ? Cognitive behavioral therapy. Follow these instructions at home: Medicines ? Take jghc-mlg-rejpojt and prescription medicines only as told by your health care provider. ? Ask your health care provider if the medicine prescribed to you: ? Requires you to avoid driving or using heavy machinery. ? Can cause constipation. You may need to take these actions to prevent or treat constipation: ? Drink enough fluid to keep your urine pale yellow. ? Take jwhu-wuu-argixtp or prescription medicines. ? Eat foods that are high in fiber, such as beans, whole grains, and fresh fruits and vegetables. ? Limit foods that are high in fat and processed sugars, such as fried or sweet foods. Lifestyle ? Do not drink alcohol. ? Do not use any products that contain nicotine or tobacco, such as cigarettes, e-cigarettes, and chewing tobacco. If you need help quitting, ask your health care provider. ? Get at least 8 hours of sleep every night. ? Find ways to manage stress, such as meditation, deep breathing, or yoga. General instructions ? Keep a journal to find out what may trigger your migraine headaches. For example, write down: ? What you eat and drink. ? How much sleep you get. ? Any change to your diet or medicines. ? If you have a migraine headache: ? Avoid things that make your symptoms worse, such as bright lights. ? It may help to lie down in a dark, quiet room. ? Do not drive or use heavy machinery. ? Ask your health care provider what activities are safe for you while you are experiencing symptoms. ? Keep all follow-up visits as told by your health care provider. This is important. Contact a health care provider if: ? You develop symptoms (more content not included)... [facility] 09-15-2023 Note Education Materials Neurology Migraine Headache A migraine headache is a very strong throbbing pain on one side or both sides of your head. This type of headache can also cause other symptoms. It can last from 4 hours to 3 days. Talk with your doctor about what things may bring on (trigger) this condition. What are the causes? The exact cause of this condition is not known. This condition may be triggered or caused by: ? Drinking alcohol. ? Smoking. ? Taking medicines, such as: ? Medicine used to treat chest pain (nitroglycerin). ? control pills. ? Estrogen. ? Some blood pressure medicines. ? Eating or drinking certain products. ? Doing physical activity. Other things that may trigger a migraine headache include: ? Having a menstrual period. ? . ? Hunger. ? Stress. ? Not getting enough sleep or getting too much sleep. ? Weather changes. ? Tiredness (fatigue). What increases the risk? ? Being 25?55 years old. ? Being female. ? Having a family history of migraine headaches. ? Being . ? Having depression or anxiety. ? Being very overweight. What are the signs or symptoms? ? A throbbing pain. This pain may: ? Happen in any area of the head, such as on one side or both sides. ? Make it hard to do daily activities. ? Get worse with physical activity. ? Get worse around bright lights or loud noises. ? Other symptoms may include: ? Feeling sick to your stomach (nauseous). ? Vomiting. ? Dizziness. ? Being sensitive to bright lights, loud noises, or smells. ? Before you get a migraine headache, you may get warning signs (an aura). An aura may include: ? Seeing flashing lights or having blind spots. ? Seeing bright spots, halos, or zigzag lines. ? Having tunnel vision or blurred vision. ? Having numbness or a tingling feeling. ? Having trouble talking. ? Having weak muscles. ? Some people have symptoms after a migraine headache (postdromal phase), such as: ? Tiredness. ? Trouble thinking (concentrating). How is this treated? ? Taking medicines that: ? Relieve pain. ? Relieve the feeling of being sick to your stomach. ? Prevent migraine headaches. ? Treatment may also include: ? Having acupuncture. ? Avoiding foods that bring on migraine headaches. ? Learning ways to control your body functions (biofeedback). ? Therapy to help you know and deal with negative thoughts (cognitive behavioral therapy). Follow these instructions at home: Medicines ? Take rrfw-abd-zzulmgn and prescription medicines only as told by your doctor. ? Ask your doctor if the medicine prescribed to you: ? Requires you to avoid driving or using heavy machinery. ? Can cause trouble pooping (constipation). You may need to take these steps to prevent or treat trouble pooping: ? Drink enough fluid to keep your pee (urine) pale yellow. ? Take nmkq-rtt-jiloxyk or prescription medicines. ? Eat foods that are high in fiber. These include beans, whole grains, and fresh fruits and vegetables. ? Limit foods that are high in fat and sugar. These include fried or sweet foods. Lifestyle ? Do not drink alcohol. ? Do not use any products that contain nicotine or tobacco, such as cigarettes, e-cigarettes, and chewing tobacco. If you need help quitting, ask your doctor. ? Get at least 8 hours of sleep every night. ? Limit and deal with stress. General instructions ? Keep a journal to find out what may bring on your migraine headaches. For example, write down: ? What you eat and drink. ? How much sleep you get. ? Any change in what you eat or drink. ? Any change in your medicines. ? If you have a migraine headache: ? Avoid things that make your symptoms worse, such as bright lights. ? It may help to lie down in a dark, quiet room. ? Do not drive or use heavy machinery. ? Ask your doctor what activities are safe for you. ? Keep all follow-up visits as told by your doctor. This is important. Contact a doctor if: ? You get a migraine headache that is different or worse than others you have had. ? You have more than 15 headache days in one month. Get help right away if: ? Your migraine headache gets very bad. ? Your migraine headache lasts longer than 72 hours. ? You have a fever. ? You have a stiff neck. ? You have trouble seeing. ? Your muscles feel weak or like you cannot control them. ? You start to lose your balance a lot. ? You start to have trouble walking. ? You pass out (faint). ? You have a seizure. Summary ? A migraine headache is a very strong throbbing pain on one side or both sides of your head. These headaches can also cause other symptoms. ? This condition may be treated with medicines and changes to your lifestyle. ? Keep a journal to find out what may bring on your migraine headaches. ? Contact a doctor if you get a migraine headache that is differe (more content not included)... [facility] 06-17-2023 Hospital Discharge instructions Follow Up Care 06/17/2023 11:37:09 With:Romeo Chaidez DO, FAM, PED Address: [address] [place] [id number] When:3 months Comments:ADHD - 3 month [facility] [place] 03-18-2023 Note HNO ID: [id number] Author: Remigio Trujillo MD Service: ? Author Type: Physician Type: Progress Notes Filed: 03/18/2023 5:35 PM Note Text: Date: 03/18/2023 PROCEDURE: [employer] DANIELLE to face DIAGNOSIS: dyschromia Reviewed risks, benefits, alternatives, and personnel. Patient stated understanding and consents to proceed. SKIN TYPE: Mane # I ROOM SETUP: Laser safety checklist followed Doors closed Safety DANGER signs posted Laser instrumentation utilized Laser eyeware immediately accessible before entering OR EYE PROTECTION: Patient Physician Personnel MALFUNCTIONS / PROBLEMS ENCOUNTERED DURING SURGERY/PROCEDURE: Not applicable for this patient PROCEDURE: The patient was prepared with ultrasound gel. The laser settings were initially chosen at 24-28J/cm(2) - RF 25J/cm(3) to face and RF 15J/cm(3) to forehead. Pulses= 58 Dr. Trujillo performed the procedure. PAIN: No: 0 on a scale of 0 to 10 The patient tolerated the procedure well. Will return in 1-2 months. Syneron DANIELLE (maintenance) to face ($200) Remigio Trujillo MD [facility] 12-30-2022 Evaluation + Plan note Future Scheduled TestsMRI Spine Cervical w/o Contrast 12/30/22 [facility] 12-30-2022 Hospital Discharge instructions Patient Education 12/30/2022 10:59:05 Cervical Radiculopathy Cervical Radiculopathy Cervical radiculopathy happens when a nerve in the neck (a cervical nerve) is pinched or bruised. This condition can happen because of an injury to the cervical spine (vertebrae) in the neck, or as part of the normal aging process. Pressure on the cervical nerves can cause pain or numbness that travels from the neck all the way down into the arm and fingers. Usually, this condition gets better with rest. Treatment may be needed if the condition does not improve. What are the causes? This condition may be caused by: A neck injury. A bulging (herniated) disk. Muscle spasms. Muscle tightness in the neck because of overuse. Arthritis. Breakdown or degeneration in the bones and joints of the spine (spondylosis) due to aging. Bone spurs that may develop near the cervical nerves. What are the signs or symptoms? Symptoms of this condition include: Pain. The pain may travel from the neck to the arm and hand. The pain can be severe or irritating. It may be worse when you move your neck. Numbness or tingling in your arm or hand. Weakness in the affected arm and hand, in severe cases. How is this diagnosed? This condition may be diagnosed based on your symptoms, your medical history, and a physical exam. You may also have tests, including: X-rays. A CT scan. An MRI. An electromyogram (EMG). Nerve conduction tests. How is this treated? In many cases, treatment is not needed for this condition. With rest, the condition usually gets better over time. If treatment is needed, options may include: Wearing a soft neck collar (cervical collar) for short periods of time, as told by your health care provider. Doing physical therapy to strengthen your neck muscles. Taking medicines, such as NSAIDs or oral corticosteroids. Having spinal injections, in severe cases. Having surgery. This may be needed if other treatments do not help. Different types of surgery may be done depending on the cause of this condition. Follow these instructions at home: If you have a cervical collar: Wear it as told by your health care provider. Remove it only as told by your health care provider. Ask your health care provider if you can remove the collar for cleaning and bathing. If you are allowed to remove the collar for cleaning or bathing: ?Follow instructions from your health care provider about how to remove the collar safely. ?Clean the collar by wiping it with mild soap and water and drying it completely. ?Take out any removable pads in the collar every 1 2 days, and wash them by hand with soap and water. Let them air-dry completely before you put them back in the collar. ?Check your skin under the collar for irritation or sores. If you see any, tell your health care provider. Managing pain Take gmru-vxt-ndvqqdt and prescription medicines only as told by your health care provider. If directed, put ice on the affected area. ?If you have a soft neck collar, remove it as told by your health care provider. ?Put ice in a plastic bag. ?Place a towel between your skin and the bag. ?Leave the ice on for 20 minutes, 2 3 times a day. If applying ice does not help, you can try using heat. Use the heat source that your health care provider recommends, such as a moist heat pack or a heating pad. ?Place a towel between your skin and the heat source. ?Leave the heat on for 20 30 minutes. ?Remove the heat if your skin turns bright red. This is especially important if you are unable to feel pain, heat, or cold. You may have a greater risk of getting burned. Try a gentle neck and shoulder massage to help relieve symptoms. Activity Rest as needed. Return to your normal activities as told by your health care provider. Ask your health care provider what activities are safe for you. Do stretching and strengthening exercises as told by your health care provider or physical therapist. Do not lift anything that is heavier than 10 lb (4.5 kg) until your health care provider tells you that it is safe. General instructions Use a flat pillow when you sleep. Do not drive while wearing a cervical collar. If you do not have a cervical collar, ask your health care provider if it is safe to drive while your neck heals. Ask your health care provider if the medicine prescribed to you requires you to avoid driving or using heavy machinery. Do not use any products that contain nicotine or tobacco, such as cigarettes, e-cigarettes, and chewing tobacco. These can delay healing. If you need help quitting, ask your health care provider. Keep all follow-up visits as told by your health care provider. This is important. Contact a health care provider if: Your condition does not improve with treatment. Get help right away if: Your pain gets much worse and cannot be controlled with medicines. You have weakness or numbness in your hand, arm, face, or leg. You have a high fever. You have a stiff, rigid neck. You lose control of your bowels or your bladder (have incontinence). You have trouble with walking, balance, or speaking. Summary Cervical radiculopathy happens when a nerve in the neck is pinched or bruised. A nerve can get pinched from a bulging disk, arthritis, muscle spasms, or an injury to the neck. Symptoms include pain, tingling, or numbness radiating from the neck into the arm or hand. Weakness can also occur in severe cases. Treatment may include rest, wearing a cervical collar, and physical therapy. Medicines may be prescribed to help with pain. In severe cases, injections or surgery may be needed. This information is not intended to replace advice given to you by your health care provider. Make sure you discuss any questions you have with your health care provider. Document Released: 07/15/2002 Document Revised: 09/10/2019 Document Reviewed: 09/10/2019 [employer] Patient Education 2020 [employer]. 12/30/2022 10:59:03 Tobacco Use Disorder Tobacco Use Disorder Tobacco use disorder (TUD) occurs when a person craves, seeks, and uses tobacco, regardless of the consequences. This disorder can cause problems with mental and physical health. It can affect your ability to have healthy relationships, and it can keep you from meeting your responsibilities at work, home, or school. Tobacco may be: Smoked as a cigarette or cigar. Inhaled using e-cigarettes. Smoked in a pipe or hookah. Chewed as smokeless tobacco. Inhaled into the nostrils as snuff. Tobacco products contain a dangerous chemical called nicotine, which is very addictive. Nicotine triggers hormones that make the body feel stimulated and works on areas of the brain that make you feel good. These effects can make it hard for people to quit nicotine. Tobacco contains many other unsafe chemicals that can damage almost every organ in the body. Smoking tobacco also puts others in danger due to fire risk and possible health problems caused by breathing in secondhand smoke. What are the signs or symptoms? Symptoms of TUD may include: Being unable to slow down or stop your tobacco use. Spending an abnormal amount of time getting or using tobacco. Craving tobacco. Cravings may last for up to 6 months after quitting. Tobacco use that: ?Interferes with your work, school, or home life. ?Interferes with your personal and social relationships. ?Makes you give up activities that you once enjoyed or found important. Using tobacco even though you know that it is: ?Dangerous or bad for your health or someone else's health. ?Causing problems in your life. Needing more and more of the substance to get the same effect (developing tolerance). Experiencing unpleasant symptoms if you do not use the substance (withdrawal). Withdrawal symptoms may include: ?Depressed, anxious, or irritable mood. ?Difficulty concentrating. ?Increased appetite. ?Restlessness or trouble sleeping. Using the substance to avoid withdrawal. How is this diagnosed? This condition may be diagnosed based on: Your current and past tobacco use. Your health care provider may ask questions about how your tobacco use affects your life. A physical exam. You may be diagnosed with TUD if you have at least two symptoms within a 12-month period. How is this treated? This condition is treated by stopping tobacco use. Many people are unable to quit on their own and need help. Treatment may include: Nicotine replacement therapy (NRT). NRT provides nicotine without the other harmful chemicals in tobacco. NRT gradually lowers the dosage of nicotine in the body and reduces withdrawal symptoms. NRT is available as: ?Mkjg-nex-qfxabvf gums, lozenges, and skin patches. ?Prescription mouth inhalers and nasal sprays. Medicine that acts on the brain to reduce cravings and withdrawal symptoms. A type of talk therapy that examines your triggers for tobacco use, how to avoid them, and how to cope with cravings (behavioral therapy). Hypnosis. This may help with withdrawal symptoms. Joining a support group for others coping with TUD. The best treatment for TUD is usually a combination of medicine, talk therapy, and support groups. Recovery can be a long process. Many people start using tobacco again after stopping (relapse). If you relapse, it does not mean that treatment will not work. Follow these instructions at home: Lifestyle Do not use any products that contain nicotine or tobacco, such as cigarettes and e-cigarettes. Avoid things that trigger tobacco use as much as you can. Triggers include people and situations that usually cause you to use tobacco. Avoid drinks that contain caffeine, including coffee. These may worsen some withdrawal symptoms. Find ways to manage stress. Wanting to smoke may cause stress, and stress can make you want to smoke. Relaxation techniques such as deep breathing, meditation, and yoga may help. Attend support groups as needed. These groups are an important part of long-term recovery for many people. General instructions Take uvom-cyj-okhublm and prescription medicines only as told by your health care provider. Check with your health care provider before taking any new prescription or rwll-xek-hclwueh medicines. Decide on a friend, family member, or smoking quit-line (such as 3-860-WDUM-NOW in the [place] that you can call or text when you feel the urge to smoke or when you need help coping with cravings. Keep all follow-up visits as told by your health care provider and therapist. This is important. Contact a health care provider if: You are not able to take your medicines as prescribed. Your symptoms get worse, even with treatment. Summary Tobacco use disorder (TUD) occurs when a person craves, seeks, and uses tobacco regardless of the consequences. This condition may be diagnosed based on your current and past tobacco use and a physical exam. Many people are unable to quit on their own and need help. Recovery can be a long process. The most effective treatment for TUD is usually a combination of medicine, talk therapy, and support groups. This information is not intended to replace advice given to you by your health care provider. Make sure you discuss any questions you have with your health care provider. Document Released: 06/25/2005 Document Revised: 10/07/2018 Document Reviewed: 10/07/2018 [employer] Patient Education 2020 [employer]. 12/30/2022 10:59:00 BMI for Adults BMI for Adults Body mass index (BMI) is a number that is calculated from a person's weight and height. BMI may help to estimate how much of a person's weight is composed of fat. BMI can help identify those who may be at higher risk for certain medical problems. How is BMI used with adults? BMI is used as a screening tool to identify possible weight problems. It is used to check whether a person is obese, overweight, healthy weight, or underweight. How is BMI calculated? BMI measures your weight and compares it to your height. This can be done either in Indian ([place] or metric measurements. Note that charts are available to help you find your BMI quickly and easily without having to do these calculations yourself. To calculate your BMI in Indian ([place] measurements, your health care provider will: 1.Measure your weight in pounds (lb). 2.Multiply the number of pounds by 703. For example, for a person who weighs 180 lb, multiply that number by 703, which equals 126,540. 3.Measure your height in inches (in). Then multiply that number by itself to get a measurement called inches squared. For example, for a person who is 70 in tall, the inches squared measurement is 70 in x 70 in, which equals 4900 inches squared. 4.Divide the total from Step 2 (number of lb x 703) by the total from Step 3 (inches squared): 126,540 4900 = 25.8. This is your BMI. To calculate your BMI in metric measurements, your health care provider will: 1.Measure your weight in kilograms (kg). 2.Measure your height in meters (m). Then multiply that number by itself to get a measurement called meters squared. For example, for a person who is 1.75 m tall, the meters squared measurement is 1.75 m x 1.75 m, which is equal to 3.1 meters squared. 3.Divide the number of kilograms (your weight) by the meters squared number. In this example: 70 3.1 = 22.6. This is your BMI. How is BMI interpreted? To interpret your results, your health care provider will use BMI charts to identify whether you are underweight, normal weight, overweight, or obese. The following guidelines will be used: Underweight: BMI less than 18.5. Normal weight: BMI between 18.5 and 24.9. Overweight: BMI between 25 and 29.9. Obese: BMI of 30 and above. Please note: Weight includes both fat and muscle, so someone with a muscular build, such as an athlete, may have a BMI that is higher than 24.9. In cases like these, BMI is not an accurate measure of body fat. To determine if excess body fat is the cause of a BMI of 25 or higher, further assessments may need to be done by a health care provider. BMI is usually interpreted in the same way for men and women. Why is BMI a useful tool? BMI is useful in two ways: Identifying a weight problem that may be related to a medical condition, or that may increase the risk for medical problems. Promoting lifestyle and diet changes in order to reach a healthy weight. Summary Body mass index (BMI) is a number that is calculated from a person's weight and height. BMI may help to estimate how much of a person's weight is composed of fat. BMI can help identify those who may be at higher risk for certain medical problems. BMI can be measured using Indian measurements or metric measurements. To interpret your results, your health care provider will use BMI charts to identify whether you are underweight, normal weight, overweight, or obese. This information is not intended to replace advice given to you by your health care provider. Make sure you discuss any questions you have with your health care provider. Document Released: 07/01/2005 Document Revised: 10/02/2018 Document Reviewed: 09/02/2018 [employer] Patient Education 2020 [employer]. 12/30/2022 10:58:58 Attention Deficit Hyperactivity Disorder, Adult Attention Deficit Hyperactivity Disorder, Adult Attention deficit hyperactivity disorder (ADHD) is a mental health disorder that starts during childhood (neurodevelopmental disorder). For many people with ADHD, the disorder continues into the adult years. Treatment can help you manage your symptoms. What are the causes? The exact cause of ADHD is not known. Most experts believe genetics and environmental factors contribute to ADHD. What increases the risk? The following factors may make you more likely to develop this condition: Having a family history of ADHD. Being male. Being born to a mother who smoked or drank alcohol during . Being exposed to lead or other toxins in the womb or early in life. Being born before 37 weeks of (prematurely) or at a low weight. Having experienced a brain injury. What are the signs or symptoms? Symptoms of this condition depend on the type of ADHD. The two main types are inattentive and hyperactive-impulsive. Some people may have symptoms of both types. Symptoms of the inattentive type include: Difficulty paying attention. Making careless mistakes. Not following instructions. Being disorganized. Avoiding tasks that require time and attention. Losing and forgetting things. Being easily distracted. Symptoms of the hyperactive-impulsive type include: Restlessness. Talking too much. Interrupting. Difficulty with: ?Sitting still. ?Feeling motivated. ?Relaxing. ?Waiting in line or waiting for a turn. In adults, this condition may lead to certain problems, such as: Keeping jobs. Performing tasks at work. Having stable relationships. Being on time or keeping to a schedule. How is this diagnosed? This condition is diagnosed based on your current symptoms and your history of symptoms. The diagnosis can be made by a health care provider such as a primary care provider or a mental health career orientation teacher. Your health care provider may use a symptom checklist or a behavior rating scale to evaluate your symptoms. He or she may also want to talk with people who have observed your behaviors throughout your life. How is this treated? This condition can be treated with medicines and behavior therapy. Medicines may be the best option to reduce impulsive behaviors and improve attention. Your health care provider may recommend: Stimulant medicines. These are the most common medicines used for adult ADHD. They affect certain chemicals in the brain (neurotransmitters) and improve your ability to control your symptoms. A non-stimulant medicine for adult ADHD (atomoxetine). This medicine increases a neurotransmitter called norepinephrine. It may take weeks to months to see effects from this medicine. Counseling and behavioral management are also important for treating ADHD. Counseling is often used along with medicine. Your health care provider may suggest: Cognitive behavioral therapy (CBT). This type of therapy teaches you to replace negative thoughts and actions with positive thoughts and actions. When used as part of ADHD treatment, this therapy may also include: ?Coping strategies for organization, time management, impulse control, and stress reduction. ?Mindfulness and meditation training. Behavioral management. You may work with a assistant women's basketball coach who is specially trained to help people with ADHD manage and organize activities and function more effectively. Follow these instructions at home: Medicines Take dpox-qje-bhynbxm and prescription medicines only as told by your health care provider. Talk with your health care provider about the possible side effects of your medicines and how to manage them. Lifestyle Do not use drugs. Do not drink alcohol if: ?Your health care provider tells you not to drink. ?You are , may be , or are planning to become . If you drink alcohol: ?Limit how much you use to: ?0 1 drink a day for women. ?0 2 drinks a day for men. ?Be aware of how much alcohol is in your drink. In the [place] one drink equals one 12 oz bottle of beer (355 mL), one 5 oz glass of wine (148 mL), or one 1 oz glass of hard liquor (44 mL). Get enough sleep. Eat a healthy diet. Exercise regularly. Exercise can help to reduce stress and anxiety. General instructions Learn as much as you can about adult ADHD, and work closely with your health care providers to find the treatments that work best for you. Follow the same schedule each day. Use reminder devices like notes, calendars, and phone apps to stay on time and organized. Keep all follow-up visits as told by your health care provider and therapist. This is important. Where to find more information A health care provider may be able to recommend resources that are available online or over the phone. You could start with: Attention Deficit Disorder Association (ADDA): www.add.org National Jackson of Mental Health (NIMH): www.nimh.nih.gov Contact a health care provider if: Your symptoms continue to cause problems. You have side effects from your medicine, such as: ?Repeated muscle twitches, coughing, or speech outbursts. ?Sleep problems. ?Loss of appetite. ?Dizziness. ?Unusually fast heartbeat. ?Stomach pains. ?Headaches. You are struggling with anxiety, depression, or substance abuse. Get help right away if you: Have a severe reaction to a medicine. If you ever feel like you may hurt yourself or others, or have thoughts about taking your own life, get help right away. You can go to the nearest emergency department or call: Your local emergency services (911 in the [place] A suicide crisis helpline, such as the National Suicide Prevention Lifeline at . This is open 24 hours a day. Summary ADHD is a mental health disorder that starts during childhood (neurodevelopmental disorder) and often continues into the adult years. The exact cause of ADHD is not known. Most experts believe genetics and environmental factors contribute to ADHD. There is no cure for ADHD, but treatment with medicine, cognitive behavioral therapy, or behavioral management can help you manage your condition. This information is not intended to replace advice given to you by your health care provider. Make sure you discuss any questions you have with your health care provider. Document Released: 06/11/2018 Document Revised: 03/13/2020 Document Reviewed: 03/13/2020 [employer] Patient Education 2020 [employer] Follow Up Care 10/30/2022 10:15:29 With:Josy Isaacs CNP Address: [address] [place] [id number] [phone] When:3 months [facility] 10-30-2022 Hospital Discharge instructions Patient Education 10/30/2022 10:28:14 Tobacco Use Disorder Tobacco Use Disorder Tobacco use disorder (TUD) occurs when a person craves, seeks, and uses tobacco, regardless of the consequences. This disorder can cause problems with mental and physical health. It can affect your ability to have healthy relationships, and it can keep you from meeting your responsibilities at work, home, or school. Tobacco may be: Smoked as a cigarette or cigar. Inhaled using e-cigarettes. Smoked in a pipe or hookah. Chewed as smokeless tobacco. Inhaled into the nostrils as snuff. Tobacco products contain a dangerous chemical called nicotine, which is very addictive. Nicotine triggers hormones that make the body feel stimulated and works on areas of the brain that make you feel good. These effects can make it hard for people to quit nicotine. Tobacco contains many other unsafe chemicals that can damage almost every organ in the body. Smoking tobacco also puts others in danger due to fire risk and possible health problems caused by breathing in secondhand smoke. What are the signs or symptoms? Symptoms of TUD may include: Being unable to slow down or stop your tobacco use. Spending an abnormal amount of time getting or using tobacco. Craving tobacco. Cravings may last for up to 6 months after quitting. Tobacco use that: ?Interferes with your work, school, or home life. ?Interferes with your personal and social relationships. ?Makes you give up activities that you once enjoyed or found important. Using tobacco even though you know that it is: ?Dangerous or bad for your health or someone else's health. ?Causing problems in your life. Needing more and more of the substance to get the same effect (developing tolerance). Experiencing unpleasant symptoms if you do not use the substance (withdrawal). Withdrawal symptoms may include: ?Depressed, anxious, or irritable mood. ?Difficulty concentrating. ?Increased appetite. ?Restlessness or trouble sleeping. Using the substance to avoid withdrawal. How is this diagnosed? This condition may be diagnosed based on: Your current and past tobacco use. Your health care provider may ask questions about how your tobacco use affects your life. A physical exam. You may be diagnosed with TUD if you have at least two symptoms within a 12-month period. How is this treated? This condition is treated by stopping tobacco use. Many people are unable to quit on their own and need help. Treatment may include: Nicotine replacement therapy (NRT). NRT provides nicotine without the other harmful chemicals in tobacco. NRT gradually lowers the dosage of nicotine in the body and reduces withdrawal symptoms. NRT is available as: ?Ijhv-evp-sngjibj gums, lozenges, and skin patches. ?Prescription mouth inhalers and nasal sprays. Medicine that acts on the brain to reduce cravings and withdrawal symptoms. A type of talk therapy that examines your triggers for tobacco use, how to avoid them, and how to cope with cravings (behavioral therapy). Hypnosis. This may help with withdrawal symptoms. Joining a support group for others coping with TUD. The best treatment for TUD is usually a combination of medicine, talk therapy, and support groups. Recovery can be a long process. Many people start using tobacco again after stopping (relapse). If you relapse, it does not mean that treatment will not work. Follow these instructions at home: Lifestyle Do not use any products that contain nicotine or tobacco, such as cigarettes and e-cigarettes. Avoid things that trigger tobacco use as much as you can. Triggers include people and situations that usually cause you to use tobacco. Avoid drinks that contain caffeine, including coffee. These may worsen some withdrawal symptoms. Find ways to manage stress. Wanting to smoke may cause stress, and stress can make you want to smoke. Relaxation techniques such as deep breathing, meditation, and yoga may help. Attend support groups as needed. These groups are an important part of long-term recovery for many people. General instructions Take hnbo-kjp-zphvbux and prescription medicines only as told by your health care provider. Check with your health care provider before taking any new prescription or atdi-nve-wnetbjh medicines. Decide on a friend, family member, or smoking quit-line (such as 4-700-BPOZ-NOW in the [place] that you can call or text when you feel the urge to smoke or when you need help coping with cravings. Keep all follow-up visits as told by your health care provider and therapist. This is important. Contact a health care provider if: You are not able to take your medicines as prescribed. Your symptoms get worse, even with treatment. Summary Tobacco use disorder (TUD) occurs when a person craves, seeks, and uses tobacco regardless of the consequences. This condition may be diagnosed based on your current and past tobacco use and a physical exam. Many people are unable to quit on their own and need help. Recovery can be a long process. The most effective treatment for TUD is usually a combination of medicine, talk therapy, and support groups. This information is not intended to replace advice given to you by your health care provider. Make sure you discuss any questions you have with your health care provider. Document Released: 06/25/2005 Document Revised: 10/07/2018 Document Reviewed: 10/07/2018 [employer] Patient Education 2020 [employer]. 10/30/2022 10:28:09 BMI for Adults BMI for Adults Body mass index (BMI) is a number that is calculated from a person's weight and height. BMI may help to estimate how much of a person's weight is composed of fat. BMI can help identify those who may be at higher risk for certain medical problems. How is BMI used with adults? BMI is used as a screening tool to identify possible weight problems. It is used to check whether a person is obese, overweight, healthy weight, or underweight. How is BMI calculated? BMI measures your weight and compares it to your height. This can be done either in Indian ([place] or metric measurements. Note that charts are available to help you find your BMI quickly and easily without having to do these calculations yourself. To calculate your BMI in Indian ([place] measurements, your health care provider will: 1.Measure your weight in pounds (lb). 2.Multiply the number of pounds by 703. For example, for a person who weighs 180 lb, multiply that number by 703, which equals 126,540. 3.Measure your height in inches (in). Then multiply that number by itself to get a measurement called inches squared. For example, for a person who is 70 in tall, the inches squared measurement is 70 in x 70 in, which equals 4900 inches squared. 4.Divide the total from Step 2 (number of lb x 703) by the total from Step 3 (inches squared): 126,540 4900 = 25.8. This is your BMI. To calculate your BMI in metric measurements, your health care provider will: 1.Measure your weight in kilograms (kg). 2.Measure your height in meters (m). Then multiply that number by itself to get a measurement called meters squared. For example, for a person who is 1.75 m tall, the meters squared measurement is 1.75 m x 1.75 m, which is equal to 3.1 meters squared. 3.Divide the number of kilograms (your weight) by the meters squared number. In this example: 70 3.1 = 22.6. This is your BMI. How is BMI interpreted? To interpret your results, your health care provider will use BMI charts to identify whether you are underweight, normal weight, overweight, or obese. The following guidelines will be used: Underweight: BMI less than 18.5. Normal weight: BMI between 18.5 and 24.9. Overweight: BMI between 25 and 29.9. Obese: BMI of 30 and above. Please note: Weight includes both fat and muscle, so someone with a muscular build, such as an athlete, may have a BMI that is higher than 24.9. In cases like these, BMI is not an accurate measure of body fat. To determine if excess body fat is the cause of a BMI of 25 or higher, further assessments may need to be done by a health care provider. BMI is usually interpreted in the same way for men and women. Why is BMI a useful tool? BMI is useful in two ways: Identifying a weight problem that may be related to a medical condition, or that may increase the risk for medical problems. Promoting lifestyle and diet changes in order to reach a healthy weight. Summary Body mass index (BMI) is a number that is calculated from a person's weight and height. BMI may help to estimate how much of a person's weight is composed of fat. BMI can help identify those who may be at higher risk for certain medical problems. BMI can be measured using Indian measurements or metric measurements. To interpret your results, your health care provider will use BMI charts to identify whether you are underweight, normal weight, overweight, or obese. This information is not intended to replace advice given to you by your health care provider. Make sure you discuss any questions you have with your health care provider. Document Released: 07/01/2005 Document Revised: 10/02/2018 Document Reviewed: 09/02/2018 [employer] Patient Education 2020 [employer]. 10/30/2022 10:28:07 Attention Deficit Hyperactivity Disorder, Adult Attention Deficit Hyperactivity Disorder, Adult Attention deficit hyperactivity disorder (ADHD) is a mental health disorder that starts during childhood (neurodevelopmental disorder). For many people with ADHD, the disorder continues into the adult years. Treatment can help you manage your symptoms. What are the causes? The exact cause of ADHD is not known. Most experts believe genetics and environmental factors contribute to ADHD. What increases the risk? The following factors may make you more likely to develop this condition: Having a family history of ADHD. Being male. Being born to a mother who smoked or drank alcohol during . Being exposed to lead or other toxins in the womb or early in life. Being born before 37 weeks of (prematurely) or at a low weight. Having experienced a brain injury. What are the signs or symptoms? Symptoms of this condition depend on the type of ADHD. The two main types are inattentive and hyperactive-impulsive. Some people may have symptoms of both types. Symptoms of the inattentive type include: Difficulty paying attention. Making careless mistakes. Not following instructions. Being disorganized. Avoiding tasks that require time and attention. Losing and forgetting things. Being easily distracted. Symptoms of the hyperactive-impulsive type include: Restlessness. Talking too much. Interrupting. Difficulty with: ?Sitting still. ?Feeling motivated. ?Relaxing. ?Waiting in line or waiting for a turn. In adults, this condition may lead to certain problems, such as: Keeping jobs. Performing tasks at work. Having stable relationships. Being on time or keeping to a schedule. How is this diagnosed? This condition is diagnosed based on your current symptoms and your history of symptoms. The diagnosis can be made by a health care provider such as a primary care provider or a mental health career orientation teacher. Your health care provider may use a symptom checklist or a behavior rating scale to evaluate your symptoms. He or she may also want to talk with people who have observed your behaviors throughout your life. How is this treated? This condition can be treated with medicines and behavior therapy. Medicines may be the best option to reduce impulsive behaviors and improve attention. Your health care provider may recommend: Stimulant medicines. These are the most common medicines used for adult ADHD. They affect certain chemicals in the brain (neurotransmitters) and improve your ability to control your symptoms. A non-stimulant medicine for adult ADHD (atomoxetine). This medicine increases a neurotransmitter called norepinephrine. It may take weeks to months to see effects from this medicine. Counseling and behavioral management are also important for treating ADHD. Counseling is often used along with medicine. Your health care provider may suggest: Cognitive behavioral therapy (CBT). This type of therapy teaches you to replace negative thoughts and actions with positive thoughts and actions. When used as part of ADHD treatment, this therapy may also include: ?Coping strategies for organization, time management, impulse control, and stress reduction. ?Mindfulness and meditation training. Behavioral management. You may work with a assistant women's basketball coach who is specially trained to help people with ADHD manage and organize activities and function more effectively. Follow these instructions at home: Medicines Take ywok-urn-afqbjen and prescription medicines only as told by your health care provider. Talk with your health care provider about the possible side effects of your medicines and how to manage them. Lifestyle Do not use drugs. Do not drink alcohol if: ?Your health care provider tells you not to drink. ?You are , may be , or are planning to become . If you drink alcohol: ?Limit how much you use to: ?0 1 drink a day for women. ?0 2 drinks a day for men. ?Be aware of how much alcohol is in your drink. In the [place] one drink equals one 12 oz bottle of beer (355 mL), one 5 oz glass of wine (148 mL), or one 1 oz glass of hard liquor (44 mL). Get enough sleep. Eat a healthy diet. Exercise regularly. Exercise can help to reduce stress and anxiety. General instructions Learn as much as you can about adult ADHD, and work closely with your health care providers to find the treatments that work best for you. Follow the same schedule each day. Use reminder devices like notes, calendars, and phone apps to stay on time and organized. Keep all follow-up visits as told by your health care provider and therapist. This is important. Where to find more information A health care provider may be able to recommend resources that are available online or over the phone. You could start with: Attention Deficit Disorder Association (ADDA): www.add.org National [employer] of Mental Health (NIMH): www.nimh.nih.gov Contact a health care provider if: Your symptoms continue to cause problems. You have side effects from your medicine, such as: ?Repeated muscle twitches, coughing, or speech outbursts. ?Sleep problems. ?Loss of appetite. ?Dizziness. ?Unusually fast heartbeat. ?Stomach pains. ?Headaches. You are struggling with anxiety, depression, or substance abuse. Get help right away if you: Have a severe reaction to a medicine. If you ever feel like you may hurt yourself or others, or have thoughts about taking your own life, get help right away. You can go to the nearest emergency department or call: Your local emergency services (911 in the [place] A suicide crisis helpline, such as the National Suicide Prevention Lifeline at . This is open 24 hours a day. Summary ADHD is a mental health disorder that starts during childhood (neurodevelopmental disorder) and often continues into the adult years. The exact cause of ADHD is not known. Most experts believe genetics and environmental factors contribute to ADHD. There is no cure for ADHD, but treatment with medicine, cognitive behavioral therapy, or behavioral management can help you manage your condition. This information is not intended to replace advice given to you by your health care provider. Make sure you discuss any questions you have with your health care provider. Document Released: 06/11/2018 Document Revised: 03/13/2020 Document Reviewed: 03/13/2020 [employer] Patient Education 2019 [employer] Follow Up Care 08/26/2022 17:13:26 With:Josy Isaacs CNP Address: [address] [place] [id number] [phone] When:3 months [facility] 10-08-2022 History of Present illness Narrative Date: 10/08/2022 PROCEDURE: Syneron face maintenance DIAGNOSIS: dyschromia and facial rhytids Reviewed risks, benefits, alternatives, and personnel. Patient stated understanding and consents to proceed. SKIN TYPE: Mane # II ROOM SETUP: Laser safety checklist followed Doors closed Safety DANGER signs posted Laser instrumentation utilized Laser eyeware immediately accessible before entering OR EYE PROTECTION: Patient Physician Personnel MALFUNCTIONS / PROBLEMS ENCOUNTERED DURING SURGERY/PROCEDURE: Not applicable for this patient PROCEDURE: The patient was prepared with ultrasound gel. The laser settings were initially chosen at 25J/cm(2) - RF 25J/cm(3) to face and 15J/cm(3) to forehead. Pulses: 59 Remigio Trujillo M.D. performed the procedure. This setting was then used to SITE 1.) TREATMENT NUMBER 21 of the face PAIN: No: 0 on a scale of 0 to 10 The patient tolerated the procedure well. Return PRN. Syneron DANIELLE (maintenance) to face ($200) The patient is seen and examined by Remigio Trujillo M.D. and the following reflects his/her service. Scribed by Kirsten De Jesus I agree with the Chief Complaint, ROS, and Past Histories independently gathered by the clinical product support technician and the remaining scribed note accurately describes my personal service to the patient. marky trujillo documented in this encounter [facility] 08-26-2022 Hospital Discharge instructions Patient Education 08/26/2022 20:16:01 BMI for Adults BMI for Adults Body mass index (BMI) is a number that is calculated from a person's weight and height. BMI may help to estimate how much of a person's weight is composed of fat. BMI can help identify those who may be at higher risk for certain medical problems. How is BMI used with adults? BMI is used as a screening tool to identify possible weight problems. It is used to check whether a person is obese, overweight, healthy weight, or underweight. How is BMI calculated? BMI measures your weight and compares it to your height. This can be done either in Indian ([place] or metric measurements. Note that charts are available to help you find your BMI quickly and easily without having to do these calculations yourself. To calculate your BMI in Indian ([place] measurements, your health care provider will: 1.Measure your weight in pounds (lb). 2.Multiply the number of pounds by 703. For example, for a person who weighs 180 lb, multiply that number by 703, which equals 126,540. 3.Measure your height in inches (in). Then multiply that number by itself to get a measurement called inches squared. For example, for a person who is 70 in tall, the inches squared measurement is 70 in x 70 in, which equals 4900 inches squared. 4.Divide the total from Step 2 (number of lb x 703) by the total from Step 3 (inches squared): 126,540 4900 = 25.8. This is your BMI. To calculate your BMI in metric measurements, your health care provider will: 1.Measure your weight in kilograms (kg). 2.Measure your height in meters (m). Then multiply that number by itself to get a measurement called meters squared. For example, for a person who is 1.75 m tall, the meters squared measurement is 1.75 m x 1.75 m, which is equal to 3.1 meters squared. 3.Divide the number of kilograms (your weight) by the meters squared number. In this example: 70 3.1 = 22.6. This is your BMI. How is BMI interpreted? To interpret your results, your health care provider will use BMI charts to identify whether you are underweight, normal weight, overweight, or obese. The following guidelines will be used: Underweight: BMI less than 18.5. Normal weight: BMI between 18.5 and 24.9. Overweight: BMI between 25 and 29.9. Obese: BMI of 30 and above. Please note: Weight includes both fat and muscle, so someone with a muscular build, such as an athlete, may have a BMI that is higher than 24.9. In cases like these, BMI is not an accurate measure of body fat. To determine if excess body fat is the cause of a BMI of 25 or higher, further assessments may need to be done by a health care provider. BMI is usually interpreted in the same way for men and women. Why is BMI a useful tool? BMI is useful in two ways: Identifying a weight problem that may be related to a medical condition, or that may increase the risk for medical problems. Promoting lifestyle and diet changes in order to reach a healthy weight. Summary Body mass index (BMI) is a number that is calculated from a person's weight and height. BMI may help to estimate how much of a person's weight is composed of fat. BMI can help identify those who may be at higher risk for certain medical problems. BMI can be measured using Indian measurements or metric measurements. To interpret your results, your health care provider will use BMI charts to identify whether you are underweight, normal weight, overweight, or obese. This information is not intended to replace advice given to you by your health care provider. Make sure you discuss any questions you have with your health care provider. Document Released: 07/01/2005 Document Revised: 10/02/2018 Document Reviewed: 09/02/2018 [employer] Patient Education 2020 [employer]. 08/26/2022 20:15:59 Tobacco Use Disorder Tobacco Use Disorder Tobacco use disorder (TUD) occurs when a person craves, seeks, and uses tobacco, regardless of the consequences. This disorder can cause problems with mental and physical health. It can affect your ability to have healthy relationships, and it can keep you from meeting your responsibilities at work, home, or school. Tobacco may be: Smoked as a cigarette or cigar. Inhaled using e-cigarettes. Smoked in a pipe or hookah. Chewed as smokeless tobacco. Inhaled into the nostrils as snuff. Tobacco products contain a dangerous chemical called nicotine, which is very addictive. Nicotine triggers hormones that make the body feel stimulated and works on areas of the brain that make you feel good. These effects can make it hard for people to quit nicotine. Tobacco contains many other unsafe chemicals that can damage almost every organ in the body. Smoking tobacco also puts others in danger due to fire risk and possible health problems caused by breathing in secondhand smoke. What are the signs or symptoms? Symptoms of TUD may include: Being unable to slow down or stop your tobacco use. Spending an abnormal amount of time getting or using tobacco. Craving tobacco. Cravings may last for up to 6 months after quitting. Tobacco use that: ?Interferes with your work, school, or home life. ?Interferes with your personal and social relationships. ?Makes you give up activities that you once enjoyed or found important. Using tobacco even though you know that it is: ?Dangerous or bad for your health or someone else's health. ?Causing problems in your life. Needing more and more of the substance to get the same effect (developing tolerance). Experiencing unpleasant symptoms if you do not use the substance (withdrawal). Withdrawal symptoms may include: ?Depressed, anxious, or irritable mood. ?Difficulty concentrating. ?Increased appetite. ?Restlessness or trouble sleeping. Using the substance to avoid withdrawal. How is this diagnosed? This condition may be diagnosed based on: Your current and past tobacco use. Your health care provider may ask questions about how your tobacco use affects your life. A physical exam. You may be diagnosed with TUD if you have at least two symptoms within a 12-month period. How is this treated? This condition is treated by stopping tobacco use. Many people are unable to quit on their own and need help. Treatment may include: Nicotine replacement therapy (NRT). NRT provides nicotine without the other harmful chemicals in tobacco. NRT gradually lowers the dosage of nicotine in the body and reduces withdrawal symptoms. NRT is available as: ?Heha-bjw-qixsgwc gums, lozenges, and skin patches. ?Prescription mouth inhalers and nasal sprays. Medicine that acts on the brain to reduce cravings and withdrawal symptoms. A type of talk therapy that examines your triggers for tobacco use, how to avoid them, and how to cope with cravings (behavioral therapy). Hypnosis. This may help with withdrawal symptoms. Joining a support group for others coping with TUD. The best treatment for TUD is usually a combination of medicine, talk therapy, and support groups. Recovery can be a long process. Many people start using tobacco again after stopping (relapse). If you relapse, it does not mean that treatment will not work. Follow these instructions at home: Lifestyle Do not use any products that contain nicotine or tobacco, such as cigarettes and e-cigarettes. Avoid things that trigger tobacco use as much as you can. Triggers include people and situations that usually cause you to use tobacco. Avoid drinks that contain caffeine, including coffee. These may worsen some withdrawal symptoms. Find ways to manage stress. Wanting to smoke may cause stress, and stress can make you want to smoke. Relaxation techniques such as deep breathing, meditation, and yoga may help. Attend support groups as needed. These groups are an important part of long-term recovery for many people. General instructions Take suys-tvq-qtuayow and prescription medicines only as told by your health care provider. Check with your health care provider before taking any new prescription or doqt-gjg-fhxzuni medicines. Decide on a friend, family member, or smoking quit-line (such as 4-368-RPOC-NOW in the [place] that you can call or text when you feel the urge to smoke or when you need help coping with cravings. Keep all follow-up visits as told by your health care provider and therapist. This is important. Contact a health care provider if: You are not able to take your medicines as prescribed. Your symptoms get worse, even with treatment. Summary Tobacco use disorder (TUD) occurs when a person craves, seeks, and uses tobacco regardless of the consequences. This condition may be diagnosed based on your current and past tobacco use and a physical exam. Many people are unable to quit on their own and need help. Recovery can be a long process. The most effective treatment for TUD is usually a combination of medicine, talk therapy, and support groups. This information is not intended to replace advice given to you by your health care provider. Make sure you discuss any questions you have with your health care provider. Document Released: 06/25/2005 Document Revised: 10/07/2018 Document Reviewed: 10/07/2018 [employer] Patient Education 2020 [employer]. 08/26/2022 20:15:57 Attention Deficit Hyperactivity Disorder, Adult Attention Deficit Hyperactivity Disorder, Adult Attention deficit hyperactivity disorder (ADHD) is a mental health disorder that starts during childhood (neurodevelopmental disorder). For many people with ADHD, the disorder continues into the adult years. Treatment can help you manage your symptoms. What are the causes? The exact cause of ADHD is not known. Most experts believe genetics and environmental factors contribute to ADHD. What increases the risk? The following factors may make you more likely to develop this condition: Having a family history of ADHD. Being male. Being born to a mother who smoked or drank alcohol during . Being exposed to lead or other toxins in the womb or early in life. Being born before 37 weeks of (prematurely) or at a low weight. Having experienced a brain injury. What are the signs or symptoms? Symptoms of this condition depend on the type of ADHD. The two main types are inattentive and hyperactive-impulsive. Some people may have symptoms of both types. Symptoms of the inattentive type include: Difficulty paying attention. Making careless mistakes. Not following instructions. Being disorganized. Avoiding tasks that require time and attention. Losing and forgetting things. Being easily distracted. Symptoms of the hyperactive-impulsive type include: Restlessness. Talking too much. Interrupting. Difficulty with: ?Sitting still. ?Feeling motivated. ?Relaxing. ?Waiting in line or waiting for a turn. In adults, this condition may lead to certain problems, such as: Keeping jobs. Performing tasks at work. Having stable relationships. Being on time or keeping to a schedule. How is this diagnosed? This condition is diagnosed based on your current symptoms and your history of symptoms. The diagnosis can be made by a health care provider such as a primary care provider or a mental health career orientation teacher. Your health care provider may use a symptom checklist or a behavior rating scale to evaluate your symptoms. He or she may also want to talk with people who have observed your behaviors throughout your life. How is this treated? This condition can be treated with medicines and behavior therapy. Medicines may be the best option to reduce impulsive behaviors and improve attention. Your health care provider may recommend: Stimulant medicines. These are the most common medicines used for adult ADHD. They affect certain chemicals in the brain (neurotransmitters) and improve your ability to control your symptoms. A non-stimulant medicine for adult ADHD (atomoxetine). This medicine increases a neurotransmitter called norepinephrine. It may take weeks to months to see effects from this medicine. Counseling and behavioral management are also important for treating ADHD. Counseling is often used along with medicine. Your health care provider may suggest: Cognitive behavioral therapy (CBT). This type of therapy teaches you to replace negative thoughts and actions with positive thoughts and actions. When used as part of ADHD treatment, this therapy may also include: ?Coping strategies for organization, time management, impulse control, and stress reduction. ?Mindfulness and meditation training. Behavioral management. You may work with a assistant women's basketball coach who is specially trained to help people with ADHD manage and organize activities and function more effectively. Follow these instructions at home: Medicines Take qujc-jrd-bijiqcz and prescription medicines only as told by your health care provider. Talk with your health care provider about the possible side effects of your medicines and how to manage them. Lifestyle Do not use drugs. Do not drink alcohol if: ?Your health care provider tells you not to drink. ?You are , may be , or are planning to become . If you drink alcohol: ?Limit how much you use to: ?0 1 drink a day for women. ?0 2 drinks a day for men. ?Be aware of how much alcohol is in your drink. In the [place] one drink equals one 12 oz bottle of beer (355 mL), one 5 oz glass of wine (148 mL), or one 1 oz glass of hard liquor (44 mL). Get enough sleep. Eat a healthy diet. Exercise regularly. Exercise can help to reduce stress and anxiety. General instructions Learn as much as you can about adult ADHD, and work closely with your health care providers to find the treatments that work best for you. Follow the same schedule each day. Use reminder devices like notes, calendars, and phone apps to stay on time and organized. Keep all follow-up visits as told by your health care provider and therapist. This is important. Where to find more information A health care provider may be able to recommend resources that are available online or over the phone. You could start with: Attention Deficit Disorder Association (ADDA): www.add.org National Jackson of Mental Health (NIMH): www.nimh.nih.gov Contact a health care provider if: Your symptoms continue to cause problems. You have side effects from your medicine, such as: ?Repeated muscle twitches, coughing, or speech outbursts. ?Sleep problems. ?Loss of appetite. ?Dizziness. ?Unusually fast heartbeat. ?Stomach pains. ?Headaches. You are struggling with anxiety, depression, or substance abuse. Get help right away if you: Have a severe reaction to a medicine. If you ever feel like you may hurt yourself or others, or have thoughts about taking your own life, get help right away. You can go to the nearest emergency department or call: Your local emergency services (911 in the [place] A suicide crisis helpline, such as the National Suicide Prevention Lifeline at . This is open 24 hours a day. Summary ADHD is a mental health disorder that starts during childhood (neurodevelopmental disorder) and often continues into the adult years. The exact cause of ADHD is not known. Most experts believe genetics and environmental factors contribute to ADHD. There is no cure for ADHD, but treatment with medicine, cognitive behavioral therapy, or behavioral management can help you manage your condition. This information is not intended to replace advice given to you by your health care provider. Make sure you discuss any questions you have with your health care provider. Document Released: 06/11/2018 Document Revised: 03/13/2020 Document Reviewed: 03/13/2020 [employer] Patient Education 2020 [employer]. 08/26/2022 20:15:55 Migraine Headache Migraine Headache A migraine headache is an intense, throbbing pain on one side or both sides of the head. Migraine headaches may also cause other symptoms, such as nausea, vomiting, and sensitivity to light and noise. A migraine headache can last from 4 hours to 3 days. Talk with your doctor about what things may bring on (trigger) your migraine headaches. What are the causes? The exact cause of this condition is not known. However, a migraine may be caused when nerves in the brain become irritated and release chemicals that cause inflammation of blood vessels. This inflammation causes pain. This condition may be triggered or caused by: Drinking alcohol. Smoking. Taking medicines, such as: ?Medicine used to treat chest pain (nitroglycerin). ? control pills. ?Estrogen. ?Certain blood pressure medicines. Eating or drinking products that contain nitrates, glutamate, aspartame, or tyramine. Aged cheeses, chocolate, or caffeine may also be triggers. Doing physical activity. Other things that may trigger a migraine headache include: Menstruation. . Hunger. Stress. Lack of sleep or too much sleep. Weather changes. Fatigue. What increases the risk? The following factors may make you more likely to experience migraine headaches: Being a certain age. This condition is more common in people who are 25 55 years old. Being female. Having a family history of migraine headaches. Being . Having a mental health condition, such as depression or anxiety. Being obese. What are the signs or symptoms? The main symptom of this condition is pulsating or throbbing pain. This pain may: Happen in any area of the head, such as on one side or both sides. Interfere with daily activities. Get worse with physical activity. Get worse with exposure to bright lights or loud noises. Other symptoms may include: Nausea. Vomiting. Dizziness. General sensitivity to bright lights, loud noises, or smells. Before you get a migraine headache, you may get warning signs (an aura). An aura may include: Seeing flashing lights or having blind spots. Seeing bright spots, halos, or zigzag lines. Having tunnel vision or blurred vision. Having numbness or a tingling feeling. Having trouble talking. Having muscle weakness. Some people have symptoms after a migraine headache (postdromal phase), such as: Feeling tired. Difficulty concentrating. How is this diagnosed? A migraine headache can be diagnosed based on: Your symptoms. A physical exam. Tests, such as: ?CT scan or an MRI of the head. These imaging tests can help rule out other causes of headaches. ?Taking fluid from the spine (lumbar puncture) and analyzing it (cerebrospinal fluid analysis, or CSF analysis). How is this treated? This condition may be treated with medicines that: Relieve pain. Relieve nausea. Prevent migraine headaches. Treatment for this condition may also include: Acupuncture. Lifestyle changes like avoiding foods that trigger migraine headaches. Biofeedback. Cognitive behavioral therapy. Follow these instructions at home: Medicines Take fzdr-gxm-ekcvdqq and prescription medicines only as told by your health care provider. Ask your health care provider if the medicine prescribed to you: ?Requires you to avoid driving or using heavy machinery. ?Can cause constipation. You may need to take these actions to prevent or treat constipation: ?Drink enough fluid to keep your urine pale yellow. ?Take qysd-gma-cvhgnlc or prescription medicines. ?Eat foods that are high in fiber, such as beans, whole grains, and fresh fruits and vegetables. ?Limit foods that are high in fat and processed sugars, such as fried or sweet foods. Lifestyle Do not drink alcohol. Do not use any products that contain nicotine or tobacco, such as cigarettes, e-cigarettes, and chewing tobacco. If you need help quitting, ask your health care provider. Get at least 8 hours of sleep every night. Find ways to manage stress, such as meditation, deep breathing, or yoga. General instructions Keep a journal to find out what may trigger your migraine headaches. For example, write down: ?What you eat and drink. ?How much sleep you get. ?Any change to your diet or medicines. If you have a migraine headache: ?Avoid things that make your symptoms worse, such as bright lights. ?It may help to lie down in a dark, quiet room. ?Do not drive or use heavy machinery. ?Ask your health care provider what activities are safe for you while you are experiencing symptoms. Keep all follow-up visits as told by your health care provider. This is important. Contact a health care provider if: You develop symptoms that are different or more severe than your usual migraine headache symptoms. You have more than 15 headache days in one month. Get help right away if: Your migraine headache becomes severe. Your migraine headache lasts longer than 72 hours. You have a fever. You have a stiff neck. You have vision loss. Your muscles feel weak or like you cannot control them. You start to lose your balance often. You have trouble walking. You faint. You have a seizure. Summary A migraine headache is an intense, throbbing pain on one side or both sides of the head. Migraines may also cause other symptoms, such as nausea, vomiting, and sensitivity to light and noise. This condition may be treated with medicines and lifestyle changes. You may also need to avoid certain things that trigger a migraine headache. Keep a journal to find out what may trigger your migraine headaches. Contact your health care provider if you have more than 15 headache days in a month or you develop symptoms that are different or more severe than your usual migraine headache symptoms. This information is not intended to replace advice given to you by your health care provider. Make sure you discuss any questions you have with your health care provider. Document Released: 10/20/2006 Document Revised: 02/11/2020 Document Reviewed: 12/02/2019 [employer] Patient Education 2020 [employer] Follow Up Care 02/25/2022 16:52:01 With:Isaacs GUEST RELATIONS REPRESENTATIVEJosy Address: [address] [place], [place] [address] [place] [address]- [phone] When:1 month [facility] 06-04-2022 History of Present illness Narrative Date: 06/04/2022 PROCEDURE: Syneron face maintenance DIAGNOSIS: dyschromia and facial rhytids Reviewed risks, benefits, alternatives, and personnel. Patient stated understanding and consents to proceed. SKIN TYPE: Mane # II ROOM SETUP: Laser safety checklist followed Doors closed Safety DANGER signs posted Laser instrumentation utilized Laser eyeware immediately accessible before entering OR EYE PROTECTION: Patient Physician Personnel MALFUNCTIONS / PROBLEMS ENCOUNTERED DURING SURGERY/PROCEDURE: Not applicable for this patient PROCEDURE: The patient was prepared with ultrasound gel. The laser settings were initially chosen at 25J/cm(2) - RF 25J/cm(3) to face and 15J/cm(3) to forehead. Pulses= 68 Remigio Trujillo M.D. performed the procedure. This setting was then used to SITE 1.) TREATMENT NUMBER 20 of the face PAIN: No: 0 on a scale of 0 to 10 The patient tolerated the procedure well. Will return prn. Humberto DANIELLE (maintenance) to face ($200) The patient is seen and examined by Remigio Trujillo M.D. and the following reflects his/her service. Scribed by Kirsten De Jesus I agree with the Chief Complaint, ROS, and Past Histories independently gathered by the clinical product support technician and the remaining scribed note accurately describes my personal service to the patient. marky trujillo documented in this encounter [facility] 04-28-2022 Hospital Discharge instructions Patient Education 04/28/2022 12:32:16 Skin Abscess, Mocg-uw-Eded Skin Abscess A skin abscess is an infected area of your skin that contains pus and other material. An abscess can happen in any part of your body. Some abscesses break open (rupture) on their own. Most continue to get worse unless they are treated. The infection can spread deeper into the body and into your blood, which can make you feel sick. A skin abscess is caused by germs that enter the skin through a cut or scrape. It can also be caused by blocked oil and sweat glands or infected hair follicles. This condition is usually treated by: Draining the pus. Taking antibiotic medicines. Placing a warm, wet washcloth over the abscess. Follow these instructions at home: Medicines Take tmue-qfw-dlxfyxl and prescription medicines only as told by your doctor. If you were prescribed an antibiotic medicine, take it as told by your doctor. Do not stop taking the antibiotic even if you start to feel better. Abscess care If you have an abscess that has not drained, place a warm, clean, wet washcloth over the abscess several times a day. Do this as told by your doctor. Follow instructions from your doctor about how to take care of your abscess. Make sure you: ?Cover the abscess with a bandage (dressing). ?Change your bandage or gauze as told by your doctor. ?Wash your hands with soap and water before you change the bandage or gauze. If you cannot use soap and water, use hand airborne operations superintendent. Check your abscess every day for signs that the infection is getting worse. Check for: ?More redness, swelling, or pain. ?More fluid or blood. ?Warmth. ?More pus or a bad smell. General instructions To avoid spreading the infection: ?Do not share personal care items, towels, or hot tubs with others. ?Avoid making nybo-sc-uyqp contact with other people. Keep all follow-up visits as told by your doctor. This is important. Contact a doctor if: You have more redness, swelling, or pain around your abscess. You have more fluid or blood coming from your abscess. Your abscess feels warm when you touch it. You have more pus or a bad smell coming from your abscess. You have a fever. Your muscles ache. You have chills. You feel sick. Get help right away if: You have very bad (severe) pain. You see red streaks on your skin spreading away from the abscess. Summary A skin abscess is an infected area of your skin that contains pus and other material. The abscess is caused by germs that enter the skin through a cut or scrape. It can also be caused by blocked oil and sweat glands or infected hair follicles. Follow your doctor's instructions on caring for your abscess, taking medicines, preventing infections, and keeping follow-up visits. This information is not intended to replace advice given to you by your health care provider. Make sure you discuss any questions you have with your health care provider. Document Released: 04/07/2009 Document Revised: 02/10/2020 Document Reviewed: 12/03/2018 [employer] Patient Education 2020 [employer]. Follow Up Care 04/28/2022 11:27:09 With:Josy Isaacs Address:Unknown When:05/01/2022 12:04:27 [facility] 04-09-2022 History of Present illness Narrative Date: 04/09/2022 PROCEDURE: Syneron face maintenance DIAGNOSIS: dyschromia and facial rhytids Reviewed risks, benefits, alternatives, and personnel. Patient stated understanding and consents to proceed. SKIN TYPE: Mane # II ROOM SETUP: Laser safety checklist followed Doors closed Safety DANGER signs posted Laser instrumentation utilized Laser eyeware immediately accessible before entering OR EYE PROTECTION: Patient Physician Personnel MALFUNCTIONS / PROBLEMS ENCOUNTERED DURING SURGERY/PROCEDURE: Not applicable for this patient PROCEDURE: The patient was prepared with ultrasound gel. The laser settings were initially chosen at 25J/cm(2) - RF 25J/cm(3) to face and 15J/cm(3) to forehead. Pulses= 75 Remigio Trujillo M.D. performed the procedure. This setting was then used to SITE 1.) TREATMENT NUMBER 19 of the face PAIN: No: 0 on a scale of 0 to 10 The patient tolerated the procedure well. Will return prn. Syneron DANIELLE (maintenance) to face ($200) The patient is seen and examined by Remigio Trujillo M.D. and the following reflects his/her service. Scribed by Kirsten De Jesus,I agree with the Chief Complaint, ROS, and Past Histories independently gathered by the clinical product support technician and the remaining scribed note accurately describes my personal service to the patient. marky trujillo documented in this encounter [facility] 02-19-2022 History of Present illness Narrative Date: 02/19/2022 PROCEDURE: Syneron face maintenance DIAGNOSIS: dyschromia and facial rhytids Reviewed risks, benefits, alternatives, and personnel. Patient stated understanding and consents to proceed. SKIN TYPE: Mane # II ROOM SETUP: Laser safety checklist followed Doors closed Safety DANGER signs posted Laser instrumentation utilized Laser eyeware immediately accessible before entering OR EYE PROTECTION: Patient Physician Personnel MALFUNCTIONS / PROBLEMS ENCOUNTERED DURING SURGERY/PROCEDURE: Not applicable for this patient PROCEDURE: The patient was prepared with ultrasound gel. The laser settings were initially chosen at 24J/cm(2) - RF 25J/cm(3) to face and 15J/cm(3) to forehead. Pulses= 59 Remigio Trujillo M.D. performed the procedure. This setting was then used to SITE 1.) TREATMENT NUMBER 18 of the face PAIN: No: 0 on a scale of 0 to 10 The patient tolerated the procedure well. Will return prn. Syneron DANIELLE (maintenance) to face ($200) The patient is seen and examined by Remigio Trujillo M.D. and the following reflects his/her service. Scribed by DESHAWN Fuentes agree with the Chief Complaint, ROS, and Past Histories independently gathered by the clinical product support technician and the remaining scribed note accurately describes my personal service to the patient. marky trujillo documented in this encounter [facility] 11-26-2021 Hospital Discharge instructions Follow Up Care 11/26/2021 16:27:06 With:Josy Isaacs CNP Address: When:6 months Comments:or sooner if needed. [facility] Evaluation + Plan note Future Appointments Appointment Date:02/25/2022 04:00:00 PM Scheduled Provider:Josy Isaacs CNP Location:[facility] Appointment Type:[facility] Evaluation + Plan note Future Appointments Appointment Date:08/26/2022 04:20:00 PM Scheduled Provider:Josy Isaacs CNP Location:[facility] Appointment Type:[facility] Evaluation + Plan note Future Appointments Appointment Date:08/26/2022 04:20:00 PM Scheduled Provider:Josy Isaacs CNP Location:[facility] Appointment Type: Open Diagnostic Tests PendingWound Culture 04/28/22 [facility] Evaluation + Plan note Future Appointments Appointment Date:09/30/2022 11:00:00 AM Scheduled Provider:Josy Isaacs CNP Location:[facility] Appointment Type:[facility] Evaluation + Plan note Future Appointments Appointment Date:12/30/2022 10:20:00 AM Scheduled Provider:Josy Isaacs CNP Location:[facility] Appointment Type:[facility] Evaluation + Plan note Future Appointments Appointment Date:05/02/2023 08:40:00 AM Scheduled Provider:Romeo Chaidez DO Location:[facility] Appointment Type: New Patient - Adult Future Scheduled TestsMRI Spine Cervical w/o Contrast 12/30/22 [facility] Evaluation + Plan note Future Appointments Appointment Date:09/17/2023 03:40:00 PM Scheduled Provider:Romeo Chaidez DO Location:[facility] Appointment Type: Open Future Scheduled [id number] 06/17/23TSH With T4fr Reflex 06/17/23CBC w/ Auto Diff 06/17/23Ferritin 06/17/23Folate Level 06/17/23Iron Level 06/17/23Transferrin 06/17/23Vitamin B12 Level 06/17/23MRI Spine Cervical w/o Contrast 12/30/22 [facility] [place] Evaluation + Plan note Future Appointments Appointment Date:12/23/2023 05:00:00 PM Scheduled Provider:Romeo Chaidez DO Location:[facility] Appointment Type: Open Future Scheduled [id number] 06/17/23TSH With T4fr Reflex 06/17/23CBC w/ Auto Diff 06/17/23Ferritin 06/17/23Folate Level 06/17/23Iron Level 06/17/23Transferrin 06/17/23Vitamin B12 Level 06/17/23MRI Spine Cervical w/o Contrast 12/30/22 [facility] Evaluation + Plan note Future Appointments Appointment Date:12/23/2023 05:00:00 PM Scheduled Provider:Romeo Chaidez DO Location:[facility] Appointment Type: Open Future Scheduled TestsMRI Spine Cervical w/o Contrast 12/30/22 [facility] Evaluation + Plan note Future Appointments Appointment Date:02/24/2024 05:20:00 PM Scheduled Provider:Romeo Chaidez DO Location:[facility] Appointment Type: Open Future Scheduled TestsVitamin D 25 Hydroxy 10/07/23MRI Spine Cervical w/o Contrast 12/30/22 [facility] Evaluation + Plan note Future Appointments Appointment Date:05/18/2024 11:40:00 AM Scheduled Provider:Romeo Chaidez DO Location:[facility] Appointment Type: Open Future Scheduled TestsVitamin D 25 Hydroxy 10/07/23 [facility] Evaluation + Plan note Future Appointments Appointment Date:08/11/2024 02:40:00 PM Scheduled Provider:Romeo Chaidez DO Location:[facility] Appointment Type: Open Future Scheduled TestsVitamin D 25 Hydroxy 10/07/23CT Chest, Low Dose Screening 05/18/24 [facility] Evaluation + Plan note Future Appointments Appointment Date:08/11/2024 02:40:00 PM Scheduled Provider:Romeo Chaidez DO Location:[facility] Appointment Type: Open Future Scheduled TestsVitamin D 25 Hydroxy 10/07/23 [facility] Evaluation + Plan note Future Appointments Appointment Date:11/10/2024 04:00:00 PM Scheduled Provider:Romeo Chaidez DO Location:[facility] Appointment Type: Open Future Scheduled TestsVitamin D 25 Hydroxy 10/07/23 [facility] Evaluation note Diagnosis Encounter for cosmetic surgery- Primary Other plastic surgery for unacceptable cosmetic appearance [facility] Diagnosis Encounter for cosmetic surgery- Primary Other plastic surgery for unacceptable cosmetic appearance [facility] Diagnosis Onset Date Resolution Status Menorrhagia, premenopausal a cute [facility] Work Phone: Evaluation note* Diagnosis Elective procedure for unacceptable cosmetic appearance- Primary Other plastic surgery for unacceptable cosmetic appearance [facility] Diagnosis Encounter for cosmetic surgery- Primary Other plastic surgery for unacceptable cosmetic appearance [facility] Diagnosis Encounter for cosmetic procedure- Primary [facility] Diagnosis Intractable chronic migraine without aura and without status migrainosus (CMS/HCC)- Primary [facility] Narr[facility] No data available for this section [facility] No data available for this section [facility] No data available for this section [facility] Chief Complaint and Reason for Visit Chief Complaint Menorrhaggia, Dyspar eunia, Dysmenorrhea, Adenomyos Menorrhaggia, Dyspareunia, Dysmenorrhea, Adenomyos Menorrhaggia, Dyspareunia Dysmenorrhea Adenomyos . Reason for Visit Menorrhagia, premeno pausal Family History No Family History Records Found Relationship Condition Age at Onset Recorded Date/T christina father Cerebrovascular accident (CVA) Unknown Malignant neoplasm of esophagus Unknown Not Specified Chronic obstructive pulmonary disease Un known Advance Directives No Advanced Directives Records Found Advance Directive Response Recorded Date/ Time Advance Directives No March 25 8 8:24am Summary Purpose Additional Source Comments Source Comments (unrecognize d section and content) In the event this informatio n is protected by the Federal Confidentiality of Alcohol and Drug Abuse Patient Records regulations: The Federal rules restrict any use of the information to criminally investigate or prosecute any alcohol or drug abuse patient.[facility] the event this information is protected by the Federal Confidentiality of Alcohol and Drug Abuse Patient Records regulations: The Federal rules restrict any use of the information to criminally investigate or prosecute any alcohol or drug abuse patient.[facility] the event this information is protected by the Federal Confidentiality of Alcohol and Drug Abuse Patient Records regulations: The Federal rules restrict any use of the information to criminally investigate or prosecute any alcohol or drug abuse patient.[facility] the event this information is protected by the Federal Confidentiality of Alcohol and Drug Abuse Patient Records regulations: The Federal rules restrict any use of the information to criminally investigate or prosecute any alcohol or drug abuse patient.[facility] the event this information is protected by the Federal Confidentiality of Alcohol and Drug Abuse Patient Records regulations: The Federal rules restrict any use of the information to criminally investigate or prosecute any alcohol or drug abuse patient.[facility] the event this information is protected by the Federal Confidentiality of Alcohol and Drug Abuse Patient Records regulations: The Federal rules restrict any use of the information to criminally investigate or prosecute any alcohol or drug abuse patient.[facility] the event this information is protected by the Federal Confidentiality of Alcohol and Drug Abuse Patient Records regulations: The Federal rules restrict any use of the information to criminally investigate or prosecute any alcohol or drug abuse patient.[facility] Reason for Visit (unrecogniz ed section and content) Reason Comments Established Patient Reason Comments Consult Reason Comments Follow Up Reason Comments Procedure Reason Onset Date Comments Refill Request 12/04/2022 Reason Comments Plastic Surg Skin Care Pt purchased Obag i Clear 4% from [facility]/mailed. Reason Comments Procedure Laser tx Reason Comments Botulinum Toxin Injection Care Teams (unrecognized sec tion and content) [employer] Operator Relationship Specialty Start Date End Date Varun Card PCP - General Family Practice 05/20/17 [employer] Relationship Specialty Start Date End Date Varun Card PCP - General Family Practice 05/20/17 Team Status: Inactive Member Role Status Dates JULIANA PiñaC Primary Care Provider Active Brady Shaikh DO Emergency Provider Active Team Status: Inactive Member Role Status Dates Gaurav Marr MD Attending Provider Active VERA Piña Primary Care Provider Active Team Status: Inactive Member Role Status Dates Prateek Hicks MD Attending Provider Active Josy Isaacs PROFESSOR OF ENGINEERINGDontae Primary Care Provider Active Team Status: Inactive Member Role Status Dates Prateek Hicks MD Admit Provider, Attending Provider A ctive Josy Isaacs PROFESSOR OF ENGINEERING-[place]ernan Primary Care Provider Active Team Status: Active Member Role Status Dates VERA Piña Primary Care Provider Active [employer] Operator Relationship Specialty Start Date End Date Varun Card PCP - General Family Medicine 05/20/17 [employer] Operator Relationship Specialty Start Date End Date Varun Card PCP - General Family Medicine 05/20/17 [employer] Operator Relationship Specialty Start Date End Date Varun Card PCP - General Family Medicine 05/20/17 [employer] Operator Relationship Specialty Start Date End Date Romeo Chaidez DO [address] [place] [id number] PCP - General Family Medicine 09/18/23 [employer] Operator Relationship Specialty Start Date End Date Romeo Chaidez DO [address] [place] [address] PCP - General Family Medicine 09/18/23 INFORMATION SOURCE (unrecogn ized section and content) DATE CREATED AUTHOR 12/07/2022 [facility] DATE CREATED AUTHOR AUTHOR'S ORGANIZ ATION 03/13/2023 [facility] DATE CREATED AUTHOR AUTHOR'S ORGANIZ ATION 02/07/2024 [facility] DATE CREATED AUTHOR AUTHOR'S ORGANIZ ATION 08/21/2024 [facility]chevar[facility] DATE CREATED AUTHOR AUTHOR'S ORGANIZ ATION 08/21/2024 [facility] DATE CREATED AUTHOR AUTHOR'S ORGANIZ ATION 08/28/2024 [facility] FOR RECORDS PERTAINING TO PATIENTS WHO ARE OR HAVE BEEN ENROLLED IN A CHEMICAL DEPENDENCY/SUBSTANCEABUSE PROGRAM, SOME INFORMATION MAY BE OMITTED. This clinical summary was aggregated from multiple sources. Caution should be exercised in using it in the provision of clinical care. This summary normalizes information from multiple sources, and as a consequence, information in this document may materially change the coding, format and clinical context of patient data. In addition, data may be omitted in some cases. CLINICAL DECISIONS SHOULD BE BASED ON THE PRIMARY CLINICAL RECORDS. [employer] provides no warranty or guarantee of the accuracy or completeness of information in this document.
[2024-09-03 10:20] LABS: Basophils Absolute Auto 0.1 10^3/uL (0.0-0.1); Basophils Percent Auto 0.9 % (0.2-2.0); Eosinophils Absolute Auto 0.2 10^3/uL (0.0-0.7); Eosinophils Percent Auto 1.9 % (0.9-7.0); Hematocrit 42.2 % (36.0-48.0); Hemoglobin 13.8 g/dL (12.0-16.0); Immature Granulocytes Abs Auto 0.04 10^3/uL (0.00-0.03); Immature Granulocytes Pct Auto 0.3 % (0.0-0.5); Lymphocytes Absolute Auto 3.5 10^3/uL (1.2-3.8); Lymphocytes Percent Auto 27.5 % (20.5-60.0); Mean Corpuscular HGB Conc 32.7 g/dL (29.9-35.2); Mean Corpuscular Hemoglobin 28.8 pg (26.7-34.0); Mean Corpuscular Volume 88.1 fL (81.0-99.0); Mean Platelet Volume 8.8 fL (9.5-13.5); Monocytes Absolute Auto 0.6 10^3/uL (0.3-0.8); Monocytes Percent Auto 4.8 % (1.7-12.0); Neutrophils Absolute Auto 8.3 10^3/uL (1.4-6.5); Neutrophils Percent Auto 64.6 % (43.0-75.0); Platelet Count 518 10^3/uL (150-450); Red Blood Count 4.79 10^6/uL (4.20-5.40); Red Cell Distribution Width 12.6 % (11.0-15.0); White Blood Count 12.8 10^3/uL (4.0-11.0)
[2024-09-03 10:34] LABS: BUN Creatinine Ratio 16.2; Calcium 9.2 mg/dL (8.5-10.1); Carbon Dioxide 26.4 mmol/L (21.0-32.0); Chloride 105 mmol/L (98-107); Estimated GFR (African America >60 (>=60 mL/min/1.73m^2); Estimated GFR (Non-African Ame >60 (>=60 mL/min/1.73m^2); Glucose 91 mg/dL (74-106); Potassium 4.4 mmol/L (3.5-5.1); Sodium 141 mmol/L (136-145)
[2024-09-03 10:36] LABS: INR 0.94; Partial Thromboplastin Time 30.6 sec (22.3-36.2)
[2024-09-03 10:40] LABS: Alanine Aminotransferase 20 U/L (14-59); Albumin Globulin Ratio 0.8; Albumin Level 3.3 g/dL (3.4-5.0); Alkaline Phosphatase 66 U/L (46-116); Aspartate Amino Transferase 13 U/L (15-37); Bilirubin Direct 0.1 mg/dL (0.0-0.2); Bilirubin Total 0.3 mg/dL (0.2-1.0); Globulin 4.2 g/dL; Total Protein 7.5 g/dL (6.4-8.2)
== END 2024-09-03 08:58 | disposition home or self-care (01) ==
PROVIDERS: Visit Provider Orthopaedic Surgery Orthopaedic Surgery of the Spine
DX: Z01.810 Encounter for preprocedural cardiovascular examination (principal); Z01.812 Encounter for preprocedural laboratory examination; M48.02 Spinal stenosis, cervical region; Z12.31 Encounter for screening mammogram for malignant neoplasm of breast
CPT/HCPCS: 36415; 71046; 77063; 77067; 80048; 80076; 85025; 85610; 85730; 86850; 86900; 86901; 87081; 93005

== ENCOUNTER 2024-09-03 09:00 | Outpatient (OUT) | payer MEDICAID, SELFPAY ==
--- NOTE | 2024-09-03 10:20 | MM_ITS ---
Patient Name: NANCY NICOLE MR#: [id number] : 1975 Exam Date: 09/03/2024 Ordering Doctor: DR BRYANT HICKS RADIOLOGY REPORT PROCEDURE: MM TOMOSYNTHESIS SCREENING BI COMPARISON: MG MAMM SCREEN ISABEL W CAD, 02/23/2018. INDICATIONS: Screening Calculator Name NCI Breast Cancer Risk Assessment Tool 5 Year Breast Cancer Risk Not Reported. Lifetime Breast Cancer Risk Not Reported. Personal Breast Cancer No Personal Ovarian Cancer No Treatments None Family Cancers None LOCATION: [facility] BREAST COMPOSITION: There are scattered areas of fibroglandular density. FINDINGS: DIAGNOSTIC CATEGORY 2--BENIGN FINDING: RIGHT BREAST: No significant suspicious finding. Scattered benign-appearing lymph nodes are present. No significant change has occurred. LEFT BREAST: No significant suspicious finding. Scattered benign-appearing lymph nodes are present. No significant change has occurred. RECOMMENDATIONS: ROUTINE MAMMOGRAM AND CLINICAL EVALUATION IN 12 MONTHS. PLEASE NOTE: A NORMAL MAMMOGRAM DOES NOT EXCLUDE THE POSSIBILITY OF BREAST CANCER. A CLINICALLY SUSPICIOUS PALPABLE LUMP SHOULD BE BIOPSIED. Dictated by: Carlton Durbin M.D. on 09/16/2024 at 08:27 Approved by: Carlton Durbin M.D. on 09/16/2024 at 08:34
== END 2024-09-03 09:01 | disposition home or self-care (01) ==
LOC: MAMMO 09:01
PROVIDERS: Visit Provider Obstetrics & Gynecology
DX: Z12.31 Encounter for screening mammogram for malignant neoplasm of breast (principal)
CPT/HCPCS: 77063; 77067

== ENCOUNTER 2024-09-12 01:28 | Emergency (ER) | payer MEDICAID, SELFPAY ==
[2024-09-12 01:31] VITALS: BP 115/79; PULSE 84; TEMP 36.3; O2SAT 98; BMI 30.9
--- OUTSIDE RECORDS SUMMARY | 2024-09-12 01:34 | XMS_ITS | CCD ---
Author Organization [facility] Care Team Providers Care Slot Machine Department Floorperson Name Role Phone Josy Isaacs Primary Care Physician [phone] Varun Card Primary Care Provider MD Prateek Hicks Attending Provider [phone] VERA Isaacs Primary Care Provider [phone] MD Gaurav Marr Attending Provider [phone] MD Prateek Hicks Admit Provider DO Brady [...] CHARLIE Attending Unavailable ILIANA BERMUDEZ Consulting Unavailable [facility] Primary Care Unavaila ble DIAB ., CHARLIE Consulting Unavailable MISCDR AU Admitting Unavailable MISC, DR AU Consulting Unavailable MISC, DR AU Attending Unavailable [facility] Primary Care Unavaila ble Romeo Chaidez Primary Care Physician Unavail able Romeo Chaidez Primary Care Physician Unavail able REMIGIO TRUJILLO Attending Unavailable VARUN CARD Primary Care REMIGIO Platt Attending Unavailable VARUN CARD Primary Care Romeo Izquierdo DO Primary Care Provider PRATEEK HICKS Attending Unavailable PRATEEK HICKS Referring Unavailable LISA MARTÍNEZ Attending Unavailable PRATEEK HICKS Attending Unavailable LISA MARTÍNEZ Attending Unavailable Yovani Negrete Admitting Unavailab Yovani Deleon Attending Unavailab le Cromley DO, Romeo Lopez Primary Care Unavailable Omley, Tru H Admitting Unavailable Shaka Tru H Attending Unavailable Romeo Chaidez DO Primary Care Unavailable Bin Bello I Attending Unavailable Dm ANDINO, Romeo Lopez Primary Care Unavailable Kashk, Bin I Admitting Unavailable Omley, Tru H Admitting Unavailable Omley, Tru H Attending Unavailable Romeo Chaidez DO Primary Care Unavailable Jeff Ingram Attending Unavailable Dm ANDINO, Romeo Lopez Primary Care Unavailable Jeff Ingram Admitting Unavailable Omley, Tru H Admitting Unavailable Shaka, Tru H Attending Unavailable Romeo Chaidez DO Primary Care Unavailable Dameon Varner Admitting Unavailable Dameon Varner Attending Unavailable Romeo Chaidez DO Primary Care Unavailable Brenna Yoon Admitting Unavailab Brenna Young Attending Unavailab Romeo Yun DO Primary Care Unavailable Romeo Chaidez Attending Unavailable Romeo Chaidez Attending Unavailable Romeo Chaidez Attending Unavailable Romeo Chaidez Attending Unavailable Romeo Chaidez Attending Unavailable Romeo Chaidez Attending Unavailable Romeo Chaidez Admitting Unavailable Romeo Chaidez Attending Unavailable Romeo Chaidez Admitting Unavailable Romeo Chaidez Attending Unavailable Romeo Chaidez Referring Unavailable Romeo Chaidez Admitting Unavailable Romeo Chaidez Attending Unavailable Romeo Chaidez Attending Unavailable Romeo Chaidez Attending Unavailable Romeo Chaidez Admitting Unavailable Allergies Allergy Classification Reported Allergen(s) Allergy Type Date of Onset Reaction(s) Facility Adhesive Tape (1 source) Adhesive Tape Substance Allergy Chemical burn [facility] Penicillins (antibiotic) (1 source) Penicillin; Translations: [penicillin] Drug Allergy Rash [facility] Serotonin-1b and Serotonin-1d Receptor Agonists (1 source) SUMAtriptan; Translations: [sumatriptan] Drug Allergy Eruption of skin (disorder) [facility] (18 sources) Adhesive Tape; Translations: [Tape] Drug allergy 2 Chemical burn, Rash, damon skin [facility] (18 sources) Penicillin; Translations: [penicillin] Drug Allergy Rash [facility] (20 sources) SUMAtriptan; Translations: [sumatriptan] Drug Allergy 2 Eruption of skin (disorder), Other [facility] (4 sources) Penicillins; Translations: [PENICILLINS] Propensity to adverse reactions 3 Rash [facility] Work Phone: (11 sources) traMADol; Translations: [TRAMADOL] Drug Allergy 3 Rash, [facility] (3 sources) Promethazine Drug Allergy 2 body sweats [facility] (5 sources) Penicillins Propensity to adverse reactions 3 Rash [facility] Work Phone: (1 source) Desonide Drug Allergy 5 [facility] Repository (2 sources) Levamisole; Translations: [Phenergan] Drug Allergy 0 [facility] (1 source) Penicillins Drug allergy (disorder) 5 [facility] (2 sources) Acetaminophen / oxyCODONE Drug Allergy 3 Rash [facility] (2 sources) Penicillins Drug Allergy 3 Other [facility] (2 sources) Fremanezumab-Vfrm Drug Allergy 3 Rash [facility] (2 sources) Wound Dressing Adhesive Drug Allergy 3 Other [facility] (1 source) Adhesive bandage; Translations: [Adhesive Bandage] Propensity to adverse reactions (disorder) [facility] Repository (1 source) Latex; Translations: [Latex Allergy] Propensity to adverse reactions (disorder) [facility] Medications Current Medications Medication Drug Class(es) Dates Sig (Normalized) Sig (Original) 200 actuat albuterol 0.09 mg/actuat dry powder inhaler (15 sources) beta2-Adrenergic Agonist Start: 11-26-2021 take 180 ug by inhalation every six hours albuterol 90 mcg/inh inhalation powder 180 mcg, 2 puff(s), Inhalation, q6hr, 1 EA, Refill(s) 1, [facility] 163, cm, 11/26/21 15:43:00 EST, Height/Length Dosing, 84.3, kg, 11/26/21 15:43:00 EST, Weight Dosing Start Date: 11/26/21 Status: Ordered albuterol 90 mcg/inh inhalation powder (2 sources) Start: 11-26-2021 take 180 ug by inhalation every six hours albuterol 90 mcg/inh inhalation powder 180 mcg, 2 puff(s), Inhalation, q6hr, 1 EA, Refill(s) 1, [facility] 163, cm, 11/26/21 15:43:00 EST, Height/Length Dosing, 84.3, kg, 11/26/21 15:43:00 EST, Weight Dosing Start Date: 11/26/21 Status: Ordered Amphetamine / Dextroamphetamine (4 sources) Central Nervous System Stimulant Start: 09-15-2023 Amphetamine-Dext roamphetamine (ADDERALL PO) 0 Refill(s) 09/15/2023 Active Start: 08-26-2022 take 1 capsule by mo [facility] once daily in the morning amphetamine-dextroamphetamine 10 mg oral capsule, extended release 10 mg, 1 cap(s), Oral, qAM, 30 cap(s), Refill(s) 0, [facility] #[id number], 163, cm, 08/26/22 16:42:00 EDT, Height/Length Dosing, 87.2, kg, 08/26/22 16:42:00 EDT, Weight Dosing Start Date: 08/26/22 Status: Ordered 24 hr amphetamine aspartate 2.5 mg / amphetamine sulfate 2.5 mg / dextroamphetamine saccharate 2.5 mg / dextroamphetamine sulfate 2.5 mg extended release oral capsule (20 sources) Central Nervous System Stimulant Start: 08-24-2024 take 1 capsule by mouth once daily in the morning Adderall XR 10 mg Cap-ER 10 mg = 1 cap(s), Oral, qAM, # 30 cap(s), Refills(s) 0, Pharmacy: [facility]/pharmacy #[id number], 163, cm, 08/11/24 14:51:00 EDT, Height/Length Dosing, 82, kg, 08/11/24 14:51:00 EDT, Weight Dosing Start Date: 08/24/24 Status: Ordered Start: 08-24-2024 take 1 capsule by mo uth once daily in the morning Adderall XR 20 mg Cap-ER 20 mg = 1 cap(s), Oral, qAM, # 30 cap(s), Refills(s) 0, Pharmacy: [facility]/pharmacy #[id number], 163, cm, 08/11/24 14:51:00 EDT, Height/Length Dosing, 82, kg, 08/11/24 14:51:00 EDT, Weight Dosing Start Date: 08/24/24 Status: Ordered Start: 07-21-2023 take 1 capsule by mo uth once daily in the morning Adderall XR 10 mg Cap-ER 10 mg = 1 cap(s), Oral, qAM, # 30 cap(s), Refills(s) 0, Pharmacy: [facility]/pharmacy #[id number], 163, cm, 05/18/24 11:42:00 EDT, Height/Length Dosing, 80.1, kg, 05/18/24 11:42:00 EDT, Weight Dosing Start Date: 07/27/24 Status: Ordered Start: 07-21-2023 take 1 capsule by mo uth once daily in the morning Adderall XR 20 mg Cap-ER 20 mg = 1 cap(s), Oral, qAM, # 30 cap(s), Refills(s) 0, Pharmacy: [facility]/pharmacy #[id number], 163, cm, 05/18/24 11:42:00 EDT, Height/Length Dosing, 80.1, kg, 05/18/24 11:42:00 EDT, Weight Dosing Start Date: 07/12/24 Status: Ordered Start: 05-13-2023 take 1 capsule by mo uth once daily in the morning Adderall XR 10 mg Cap-ER 10 mg = 1 cap(s), Oral, qAM, # 30 cap(s), Refills(s) 0, Pharmacy: [facility] #[id number], 163, cm, 04/04/23 12:54:00 EDT, Height/Length Dosing, 82, kg, 04/04/23 12:54:00 EDT, Weight Dosing Start Date: 05/13/23 Status: Ordered Start: 05-13-2023 take 1 capsule by [facility] once daily in the morning Adderall XR 20 mg Cap-ER 20 mg = 1 cap(s), Oral, qAM, # 30 cap(s), Refills(s) 0, Pharmacy: [facility] #[id number], 163, cm, 04/04/23 12:54:00 EDT, Height/Length Dosing, 82, kg, 04/04/23 12:54:00 EDT, Weight Dosing Start Date: 05/13/23 Status: Ordered Start: 04-04-2023 take 1 capsule by [facility] once daily in the morning Adderall XR 10 mg Cap-ER 10 mg = 1 cap(s), Oral, qAM, # 30 cap(s), Refills(s) 0, Pharmacy: [facility] #[id number], 163, cm, 04/04/23 12:54:00 EDT, Height/Length Dosing, 82, kg, 04/04/23 12:54:00 EDT, Weight Dosing Start Date: 04/04/23 Status: Ordered Start: 04-04-2023 take 1 capsule by [facility] once daily in the morning Adderall XR 20 mg Cap-ER 20 mg = 1 cap(s), Oral, qAM, # 30 cap(s), Refills(s) 0, Pharmacy: [facility] #[id number], 163, cm, 04/04/23 12:54:00 EDT, Height/Length Dosing, 82, kg, 04/04/23 12:54:00 EDT, Weight Dosing Start Date: 04/04/23 Status: Ordered Start: 12-30-2022 End: 01-29-2023 take 1 capsule by mouth once daily in the morning amphetamine-dextroamphetamine 20 mg Cap-ER 20 mg = 1 cap(s), Oral, qAM, Take one capsule daily in the morning., X 30 day(s), # 30 cap(s), Refills(s) 0, Pharmacy: [facility] #[id number], 163, cm, 12/30/22 10:28:00 EST, Height/Length Dosing, 85.4, kg, 12/30/22 10:28:00 EST, Weight Dosing Start Date: 12/30/22 Stop Date: 01/29/23 Status: Ordered Start: 12-30-2022 End: 01-29-2023 take 1 capsule by mouth once daily amphetamine-dextroamphetamine 10 mg Cap-ER 10 mg = 1 cap(s), Oral, Daily, Take one capsule daily in afternoon., X 30 day(s), # 30 cap(s), Refills(s) 0, Pharmacy: [facility] #[id number], 163, cm, 12/30/22 10:28:00 EST, Height/Length Dosing, 85.4, kg, 12/30/22 10:28:00 EST, Weight Dosing Start Date: 12/30/22 Stop Date: 01/29/23 Status: Ordered Start: 10-30-2022 End: 11-29-2022 take 1 capsule by mouth once daily in the morning Adderall XR 20 mg Cap-ER 20 mg = 1 cap(s), Oral, qAM, X 30 day(s), # 30 cap(s), Refills(s) 0, Pharmacy: [facility] #[id number], 163, cm, 10/30/22 10:02:00 EST, Height/Length Dosing, 86.1, kg, 10/30/22 10:02:00 EST, Weight Dosing Start Date: 10/30/22 Stop Date: 11/29/22 Status: Ordered Start: 08-26-2022 take 1 capsule by [facility] once daily in the morning amphetamine-dextroamphetamine 10 mg oral capsule, extended release 10 mg, 1 cap(s), Oral, qAM, 30 cap(s), Refill(s) 0, [facility] #[id number], 163, cm, 08/26/22 16:42:00 EDT, Height/Length Dosing, 87.2, kg, 08/26/22 16:42:00 EDT, Weight Dosing Start Date: 08/26/22 Status: Ordered ARIPiprazole 2 mg oral tablet (20 sources) Atypical Antipsychotic Start: 08-29-2021 Abilify 2 mg Tab 2 mg = 1 tab(s), Oral, Refills(s) 0 Start Date: 08/29/21 Status: Ordered onabotulinumtoxina 200 unt injection (4 sources) Acetylcholine [...] QID, # 40 cap(s), Refills(s) 0, Pharmacy: [address], 163, cm, 04/28/22 11:34:00 EDT, Height/Length Dosing, 81, kg, 04/28/22 11:34:00 EDT, Weight Dosing Start Date: 04/28/22 Status: Ordered ciprofloxacin 750 mg oral tablet (1 source) Quinolone Antimicrobial Start: 05-22-2022 take 750 mg by mouth twice daily Ciprofloxacin Hcl Active 750 MG PO Twice daily 16 05May 22, 2022 12:00am clobetasol propionate 0.0005 mg/mg topical ointment (13 sources) Corticosteroid Start: 10-06-2023 clobetasol (Temovate) 0.05 % ointment apply to HANDS AND FEET twice a day for up to 3 weeks then if nee... (REFER TO PRESCRIPTION NOTES). 10/06/2023 Active Start: 02-25-2022 clobetasol pro pionate 0.05% top oint 1 jyoti, Topical, Daily, 30 gram, Refill(s) 0, [facility] 163, cm, 02/25/22 16:04:00 EDT, Height/Length Dosing, 86.2, kg, 02/25/22 16:04:00 EDT, Weight Dosing Start Date: 02/25/22 Status: Ordered Start: 02-25-2022 clobetasol pro pionate 0.05% top oint 1 jyoti, Topical, Daily, 30 gram, Refill(s) 0, [facility] 163, cm, 02/25/22 16:04:00 EDT, Height/Length Dosing, 86.2, kg, 02/25/22 16:04:00 EDT, Weight Dosing Start Date: 02/25/22 Status: Ordered cyclobenzaprine hydrochloride 10 mg oral tablet (10 sources) Muscle Relaxant Start: 08-11-2024 take 1 tablet by mouth twice daily as needed for muscle spasms cyclobenzaprine 10 mg Tab 10 mg = 1 tab(s), Oral, BID, PRN for spasm, # 60 tab(s), Refills(s) 0, Pharmacy: [facility]/pharmacy #[id number], 163, cm, 08/11/24 14:51:00 EDT, Height/Length [...] 12:00am 2 ml dupilumab 150 mg/ml auto-injector (9 sources) Interleukin-4 Receptor alpha Antagonist Start: 12-23-2023 Dupixent Pre-filled Pen 300 mg/2 mL subcutaneous solution 300 mg, Refills(s) 0 Start Date: 12/23/23 Status: Ordered Start: 12-23-2023 inject 300 mg by sub cutaneous injection once Dupixent 300 MG/2ML injection Inject 300 mg under the skin 1 (one) time 12/23/2023 Active 84 hr estradiol 0.95706 mg/hr transdermal system (2 sources) Estrogen Start: 09-18-2023 estradiol (Vivelle-DOT) 0.05 MG/24HR Indications: Menorrhagia with regular cycle apply 1 patch two times a week as directed 8 patch 11 09/18/2023 Active Estradiol Patch 0.05 mg/24 hours twice weekly transdermal film, extended release (14 sources) Start: 08-26-2022 Estradiol Patc h 0.05 mg/24 hours twice weekly transdermal film, extended release apply 1 patch two times a week as directed Start Date: 08/26/22 Status: Ordered FLUoxetine 20 mg oral capsule (20 sources) Serotonin Reuptake Inhibitor Start: 04-04-2023 take 1 capsule by mouth once daily Prozac 20 mg Cap 20 mg = 1 cap(s), Oral, Daily, # 90 cap(s), Refills(s) 4, Pharmacy: [facility] [id number], 163, cm, 05/18/24 11:42:00 EDT, Height/Length Dosing, 80.1, kg, 05/18/24 11:42:00 EDT, Weight Dosing Start Date: 05/18/24 Status: Ordered Start: 08-29-2021 take 2 capsules by m [...] daily hydrOXYzine hydrochloride 25 mg oral tablet (20 sources) Antihistamine Start: 05-18-20 take 1 tablet by mouth at bedtime hydrOXYzine hydrochloride 25 mg Tab 25 mg = 1 tab(s), Oral, Bedtime, # 90 tab(s), Refills(s) 4, Pharmacy: [facility] #[id number], 163, cm, 05/18/24 11:42:00 EDT, Height/Length Dosing, 80.1, kg, 05/18/24 11:42:00 EDT, Weight Dosing Start Date: 05/31/24 Status: Ordered Start: 02-25-2022 take 1-2 tablets by mouth four times daily as needed hydrOXYzine hydrochloride 10 mg Tab 20 mg = 2 tab(s), Oral, QID, PRN for itching, 1-2 tabs PRN, # 80 tab(s), Refills(s) 0, Pharmacy: [id number] [facility], 163, cm, 02/25/22 16:04:00 EDT, Height/Length Dosing, [...] Active ketorolac tromethamine 10 mg oral tablet (20 sources) Nonsteroidal Anti-inflammatory Drug, Cyclooxygenase Inhibitor Start: 08-29-20 ketorolac 10 mg Tab Refills(s) 0 Start Date: 08/29/21 Status: Ordered Start: 03-25-2019 End: 08-19-2024 take 1 tablet by mouth every six hours for pain ketorolac (Toradol) 10 MG tablet TAKE 1 TABLET BY MOUTH EVERY 6 HOURS IF NEEDED FOR PAIN - 3 DAY SUPPLY 06/28/2023 08/19/2024 Discontinued (Reorder) Magnesium (2 sources) Start: 11-06-2024 magnesium magnesium Start Date: 09/08/24 Status: Ordered magnesium oxide 400 mg oral tablet (6 sources) Start: 08-29-2021 magnesium oxide 400 mg Tab Refills(s) 0 Start Date: 08/29/21 Status: Ordered meloxicam 7.5 mg oral tablet (3 sources) Nonsteroidal Anti-inflammatory Drug Start: 08-11-2024 take 1 tablet by mouth once daily meloxicam 7.5 mg Tab 7.5 mg = 1 tab(s), Oral, Daily, # 30 tab(s), Refills(s) 1, Pharmacy: [facility]/pharmacy #[id number], 163, cm, 08/11/24 14:51:00 EDT, Height/Length Dosing, 82, kg, 08/11/24 14:51:00 EDT, Weight Dosing Start Date: 08/11/24 Status: Ordered metroNIDAZOLE 500 mg oral tablet (1 source) Nitroimidazole Antimicrobial Start: 05-22-2022 take 500 mg by mouth twice daily Metronidazole Active 500 MG PO Twice daily 14 May 22, 2022 12:00am naproxen 500 mg oral tablet (1 source) Nonsteroidal Anti-inflammatory Drug Start: 05-22-2022 take 1 tablet by mouth twice daily Naproxen (Naprosyn) 500 mg tablet Active 500 MG PO Twice daily 14 May 22, 2022 12:00am nortriptyline 10 mg oral [...] 2022 12:00am ondansetron 4 mg oral tablet (20 sources) Serotonin-3 Receptor Antagonist Start: 10-24-2022 take 1 tablet by mouth every eight hours as needed for headache Zofran 4 mg Tab 4 mg = 1 tab(s), Oral, q8hr, PRN Migraine headache, # 30 tab(s), Refills(s) 0, other reason (Rx) Start Date: 05/18/24 Status: Ordered Start: 12-28-2019 Zofran 4 mg Ta b [...] food., # 24 tab(s), Refills(s) 0, Pharmacy: [facility] [id number] [facility], 163, cm, 02/25/22 16:04:00 EDT, Height/Length Dosing, 86.2, kg, 02/25/22 16... Start Date: 02/25/22 Status: Ordered sodium chloride 0.111 meq/ml nasal solution (2 sources) sodium chloride ([place]) 0.65 % nasal spray 2 sprays in each nostril as needed Active tiZANidine 2 mg oral tablet (13 sources) Central alpha-2 Adrenergic Agonist Start: 05-18-2024 take 1 tablet by mouth at dinner tiZANidine 2 mg Tab 2 mg = 1 tab(s), Oral, Bedtime, rx by Dr. Martínez, # 30 tab(s), Refills(s) 0, other reason (Rx) Start Date: 05/18/24 Status: Ordered Start: 06-02-2023 take 1 tablet by fredy th three times daily tiZANidine (Zanaflex) 4 MG [...] every four to six hours Hydrocodone-Acetam inophen ([place]) 5-325 mg tablet Discontinued 1 TAB PO EVERY 4-6 HOURS 40 7 March 25, 2019 December 28, 2019 7:57am cimetidine 200 mg oral tablet (1 source) Histamine-2 Receptor Antagonist Start: 03-25-2019 End: 12-28-2019 take 1 tablet by mouth once daily Cimetidine (Acid Branch Maker (Cimetidine)) 200 mg tablet Discontinued 200 MG [...] Date Documented Da te Episodic/Chronic Allergic reactions (16 sources) Vesicular eczema 02-25-2022 Episodic Anxiety disorders (20 sources) Anxiety; Translations: [Anxiety disorder] Onset: 2 08-29-2021 Chronic Attention-deficit, conduct, and disruptive behavior disorders (20 sources) Attention deficit hyperactivity disorder; Translations: [Attention-deficit hyperactivity disorder, unspecified type] Onset: 2 08-26-2022 Chronic Cancer of cervix (17 sources) Malignant tumor of cervix 08-29-2021 Chronic Cancer of cervix (17 sources) History of malignant neoplasm of cervix 08-29-2021 Episodic Chronic obstructive pulmonary disease and bronchiectasis (20 sources) Chronic obstructive lung disease; Translations: [Chronic obstructive pulmonary disease, unspecified] Onset: 3 08-29-2021 Chronic Complications of surgical procedures or medical care (1 source) Abscess; Translations: [Infection following a procedure, other surgical site, initial encounter] 05-22-2022 Episodic Deficiency and other anemia (19 sources) Anemia; Translations: [Anemia, unspecified] Onset: 3 08-29-2021 Episodic Disorders of lipid metabolism (20 sources) Hypercholesterolemia; Translations: [Hyperlipidemia] 08-29-2021 Chronic Headache; including migraine (20 sources) Migraine; Translations: [Migraine with aura] Onset: 4 08-29-2021 Chronic Immunizations and screening for infectious disease (1 source) Vaccination given; Translations: [Encounter for immunization] Onset: Episodic Menopausal disorders (2 sources) Menorrhagia; Translations: [Excessive bleeding in the premenopausal period] 05-14-2022 Chronic Miscellaneous mental health disorders (2 sources) Primary insomnia; Translations: [Primary insomnia] Onset: 2 03-25-2024 Chronic Mood disorders (16 sources) Mild recurrent major depression; 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, recurrent, mild] Onset: 3 Chronic Nutritional deficiencies (10 sources) Decreased vitamin D 06-17-2023 Chronic Other gastrointestinal disorders (1 source) Dysphagia; Translations: [Dysphagia, unspecified] 12-28-2019 Episodic Other gastrointestinal disorders (1 source) H/O: gastrointestinal disease; Translations: [Personal history of other diseases of the digestive system] Onset: 3 Episodic Other hereditary and degenerative nervous system conditions (15 sources) Restless legs; Translations: [Restless legs syndrome] [...] Chronic Other nutritional; endocrine; and metabolic disorders (20 sources) Obesity; Translations: [Obesity, unspecified] Onset: 2 08-29-2021 Chronic Other nutritional; endocrine; and metabolic disorders (11 sources) Obese class I; Translations: [Body mass [...] [pompholyx]] Onset: 2 Episodic Residual codes; unclassified (17 sources) Obstructive sleep apnea syndrome 08-29-2021 Chronic Residual codes; unclassified (2 sources) Hypersomnia; Translations: [Hypersomnia, unspecified] Onset: 2 03-25-2024 Chronic Residual codes; unclassified (20 sources) Sleep disorder; Translations: [Sleep disorder, unspecified] [...] Spondylosis; intervertebral disc disorders; other back problems (7 sources) Displacement of cervical intervertebral disc; Translations: [Other cervical disc displacement, unspecified cervical region] Onset: 8 Chronic Spondylosis; intervertebral disc disorders; other back problems (20 sources) Nerve root disorder; Translations: [Radiculopathy, site unspecified] Onset: 8 Episodic Substance-related disorders (20 sources) Smoker; Translations: [Nicotine dependence] Onset: 2 03-10-2021 Chronic Comment on above: Added secondary to d ocumentation in Social History. Unclassified (1 source) N92.4 - Excessive bleeding in the premenopausal period; Translations: [N92.4 - Excessive bleeding in the premenopausal period] Onset: 2 Unclassified (10 sources) History of small bowel obstruction 06-17-2023 Unclassified (3 sources) Patient encounter status 06-17-2023 Past or Other Problems Problem Classification Problem Date Documented Da te Episodic/Chronic Nonspecific chest pain (1 source) Other chest pain; Translations: [OTHER CHEST PAIN] Onset: 11-26-2022 Episodic Other aftercare (1 source) Other m[facility] (current) drug therapy; Translations: [[employer]ER CURRENT DRUG THERAPY] Onset: 11-26-2022 Episodic Other connective tissue disease (1 source) Impingement syndrome of left shoulder; Translations: [IMPINGEMENT SYNDROME LEFT SHOULDER] Onset: 11-26-2022 Episodic Other nervous system disorders (2 sources) Paresthesia of lower extremity; Translations: [Paresthesia of skin] Onset: 05-27-2023 03-25-2024 Episodic Other non-traumatic joint disorders (3 sources) Pain in left shoulder; Translations: [PAIN IN LEFT SHOULDER] Onset: 11-24-2022 Episodic Results Test Name Value Interpretation Reference Range Facil ity Ambulatory Visit Summaryon 1 11-08-2023 Ambulatory Visit Summary Ambulatory Visit Summary TOOTIE NICOLE :1975 Visit Date:09/08/2024 Ambulatory Visit Instructions Your Diagnosis Pre-op exam Cervical radiculopathy at C8 Cervical disc herniation Adult BMI 30.0-30.9 kg/sq m Your Care Team Attending Physician - Romeo Chaidez DO Primary Care Physician - Romeo Chaidez DO This Is Your Medications List Contact prescribing physician if questions or concerns Non-Formulary Medication (magnesium) albuterol (albuterol 90 mcg/inh inhalation powder) amphetamine-dextroam phetamine (Adderall XR 10 mg Cap-ER) amphetamine-dextroam phetamine (Adderall XR 20 mg Cap-ER) aripiprazole (Abilify 2 mg Tab) cyclobenzaprine (cyclobenzaprine 10 mg Tab) dupilumab (Dupixent Pre-filled Pen 300 mg/2 mL subcutaneous solution) estradiol (Estradiol Patch 0.05 mg/24 hours twice weekly transdermal film, extended release) fluoxetine (Prozac 20 mg Cap) hydrOXYzine (hydrOXYzine hydrochloride 25 mg Tab) ketorolac (ketorolac 10 mg Tab) meloxicam (meloxicam 7.5 mg Tab) ondansetron (Zofran 4 mg Tab) pramipexole (Mirapex 0.75 mg oral tablet) tizanidine (tiZANidine 2 mg Tab) Procedures Performed Total hysterectomy (05/14/2022), Appendectomy, Breast, Breast implant, Sinus. Discharge Vitals Heart Rate (Peripheral) 79 Blood Pressure 128/84 Height 163 cm Height 64 in Weight 81.6 kg Weight 179.52 lb BMI 30.71 What to do next Scheduled Follow-Up Appointments Friday 4:00 PM EST With: Romeo Chaidez DO Where: [facility] [address] [place] [address]- Medications What How Much When Why Instructions Unchanged albuterol (albuterol 90 mcg/ inh inhalation [...] prescribing physician if questions or concerns Unchanged cyclobenzaprine (cyclobenzaprine 10 mg Tab) 1 Tablets By Mouth 2 times a day as needed for for spasm Spasm of cervical paraspinous muscle Contact prescribing physician if questions or concerns [...] prescribing physician if questions or concerns Unchanged meloxicam (meloxicam 7.5 mg Tab) 1 Tablets By Mouth Every day Cervical disc herniation Cervical radiculopathy at C8 Contact prescribing physician if questions or concerns Unchanged Non-Formulary Medication (magnesium) Contact prescribing physician if questions or concerns Unchanged ondansetron (Zofran 4 mg Tab) 1 Tablets By Mouth Every 8 hours as needed for Migraine headache Nausea Migraine with aura Contact prescribing physician if questions or concerns Unchanged pramipexole (Mirapex 0.75 mg oral tablet) 1 Tablets By Mouth Every day Restless leg syndrome rx by Dr Martínez Contact prescribing physician if questions or concerns Unchanged tizanidine (tiZANidine 2 mg Tab) 1 Tablets By Mouth At bedtime Migraine with aura Spasm of cervical paraspinous muscle rx by Dr. Martínez Contact prescribing physician if questions or concerns Allergies Imitrex (Rash) Tape (Chemical burn) penicillin [...] Migraine with aura Mild recurrent major depression Obesity Pre-op exam Restless legs syndrome Sleep disorder Smoker Historical - Any problem that you are no longer receiving treatment for. Anemia Cervical cancer High cholesterol Migraine AGUSTIN (obstructive sleep apnea) Patient Survey You ma (more content not included)... Normal [facility] CHEMISTRYOrdered By: SYSTEM SYSTEM on 09-08-2024 25-hydroxyvitamin D3 [Mass/Vol] 13.3 ng/mL Low 30.0 - 100.0 ng/mL Remisol Chem Family Medicine Office/Clini c Noteon 09-08-2024 Family Medicine Office/Clinic Note Family Medicine Office/Clinic Note Chief Complaint surgical clearance HPI Staff Patient here today fir Surgical clearance SHIRIN 08/11/24 Labs 10/01/23 Patient getting cervical fusion 09/17/24 in [place] History of Present Illness social The patient is not The patient is not currently working; on disability for migraines still stuck going to hospital every month The patient has 3 biologic child(troy) - and 2 step children 2 grandchild(troy) home-schooling her grand children Screening: Colonoscopy: Cologuard completed 2023; states was negative Mammogram: overdue DEXA: age Pap: HAIR DESIGNER - Dr. Sarah DAVIS Smokers/ former smokers: Low dose lung CT: 06/04/2024 - Negative, continue with annual screening List of Providers: Neurology - Dr. Lisa Martínez Facilities Maintenance Worker - Dr. Sarah DAVIS Derm - Dr. Francis Quezada - Dr. [place] patient reports that neurologist recommended gabapentin she hasn't tried gabapentin yet Pre-surgical Cardiac Risk factor assessment Any symptoms of: Angina - no Dyspnea - no Syncope - no Palpitations - no Hx of: Ischemic disease - no valvular disease - no Myopathic disease - no HTN - no Diabetes - no Chronic Kidney Disease - no Cerebrovascular Disease - no Peripheral Artery Disease - no Functional status: (1 MET) - Can take care of self, such as eat, dress or use the toilet (3-4 METs) - Can walk up a flight of steps or a hill or walk on level ground at 3-4 mph (between 4-10 METs) - Can do heavy work around the house such as scrubbing floors or lifting or moving heavy furniture or climb two flights of stairs (>10 EKG recommended if patient has known cardiovascular disease, significant arrhythmia or significant structural heart disease (unless the surgery is low risk) Pre-operative EKG is not recommended in asymptomatic patients without known cardiovascular disease Revised Cardiac Risk Index (RCRI) no - High-risk type of surgery no - History of ischemic disease (prior DE, positive stress test, current chest pain considered to be secondary to myocardial ischemia, use of nitrate therapy or ECG with pathological Q waves; do not count prior coronary revascularization procedure unless one of the other criteria for ischemic heart disease is present) no - History of heart failure no - History of cerebrovascular disease no - Diabetes mellitus requiring treatment with insulin no - Preoperative serum creatinine > 2.0mg/dL *Rate of cardiac , nonfatal myocardial infarction, and nonfatal cardiac arrest: no risk factors = 0.4% one risk factor = 1.0% two risk factors = 2.4% three or more risk factors = 5.4% Low risk patients - no additional testing is necessary Higher risk patients - additional testing MAY be necessary 1 poor or unknown functional status (<4 METs) if further testing will impact decision making - patient should undergo pharmacologic stress testing if normal, proceed to next step if abnormal, proceed to revascularization if further testing will NOT impact decision making - proceed to surgery according to GDMT or alternative strategies (non-invasive treatment, palliative care) 2 moderate/good functional status (4-10 METs) - proceed to surgery 3 excellent functional status (10 METs) - proceed to surgery ACC/AHA guideline summary: Cardiac risk stratification for noncardiac surgical procedures High risk Aortic or other major vascular surgery Peripheral artery surgery Intermediate risk Carotid endarterectomy Head and neck surgery Intraperitoneal and intrathoracic surgery Orthopedic surgery Prostate surgery Low risk Ambulatory surgery Endoscopic procedures Superficial procedures Cataract surgery Breast surgery [employer] (APA) Physical Status Classification System ASA 1 - A normal healthy patient ASA 2 - A patient with mild systemic disease ASA 3 - A patient with severe systemic disease ASA 4 - A patient with severe systemic disease that is a constant threat to life ASA 5 - A moribund patient who is not expected to survive without the operation ASA 6 - A declared brain- patient whose organs are being removed for donor purposes Review of Systems PHQ Score Initial Depression Screen Score: 2 SCORE Physical Exam Vitals & Measurements HR: 79(Peripheral) BP: 128/84 SpO2: 98% HT: 64 in HT: 163 cm WT: 81.6 kg WT: 179.52 lb BMI: 30.71 Constitutional: Vital signs reviewed; TOOTIE NICOLE is [...] gait and station Skin: Warm, dry Neurologic: (more content not included)... Normal [facility] Comment on above: Result Comment: Elec tronically Signed By: Romeo Chaidez DO\kassandra\Date and Time Signed: 09/08/24 12:18 EST Vitamin D 25 Hydroxyon 09-08 25-hydroxyvitamin D3 [Mass/Vol] 13.3 ng/mL Low 30.0-100.0 [facility] Comment on above: Performed By: #### 5 [id number] #### [facility] [address] [place] [address] Coding Summaryon 08-26-2024 Coding Summary HTMLBase 64 CgbzjlsdRUp5lAh+PGhl YWQ+OW0MUXScO79vqEAd uW3rI2XBDQlBHombDWKZ HZwQBgDnbqGrFF6tfFSj ZXJu IC8+LU4hEQYrVxgbyXWd z8L8qMV3P56kwn6wFSop qLN9WXJqVfBfarqts9gm gFa2FFxaRvmfVsFj WUOdiH02UKS5bN54Yy52 bIJngAXqb4ftbGu3ScGj SBVvDGA2zCwaQXhti2Bc TYDpX89zuHRax4D9 IGNvbGxhcHNlOyBlbXB0 rE7oPJmznlewi5nyddvz Qod4mc05eAQgq0S4xPQ8 E5DcfuC3OGNriPTb KfhtmXCXnN3ngoqfa1xj rtdzPzIhTHThLIb9SQd4 JIPdtItmNrEwWT55NBU7 JFPeldRbM1JiSPVo qKuoXiD9l8H8Rc0JH4RM UfitX4DNLPGHZAhpjFS+ XX16sp72W6BlPezlMwq7 LGYrMUZ4gPX2jI0p XJWrQNeri1A6jEC7Q2Da pgHdoc3jb0yjJABuAIbl M83eeUZfi4U7AMNxuYH8 QVHdhJsqJzYsvB09 Oyc+DMApfYyzy4BvDqck o3wjc9vryXf3MkpzJERr hoIykMnzQMO0u6WiYm7y NKDpeLC1rZR4yW7y UcZlDhM3PYsoH346RmIu mOYeYnbjD16qE3ZfqQX+ RBDwSch7FJUccVmiKX3c Q4BxNVXhyrpchPAh lZamPC5hMEOtfdecBEDe tG9jOJUnF0n0CbYxIpZ0 SKknC5QcAJTaeqpkOs37 pV4pIiVbMoC7MMru A4MugaL0HXZhkVQzEKfz SWI8Y90wm4V6NFIpFCZq DBB4fDC3jH5fcXnagxnb bGVmdDsgdmVydGlj OTqgJXeyY297OMMpnUyl PkNvZGluZyBEYXRlOiAg MTAvMjQvMjAyNDwvdGQ+ VQOmECU6lOroAVFo cUZhWVppZg2weXjuhKdx ER4gXSGomaitLAZmkQ7d HATfkKBxhDngFS5rDKEr vovnb051NjOrHHP9 ZJCjdOTzI4LuvN2oHdBb JULfOEIjG2KtsAKqLLqz H061EQdcQzA9CRIwmwOq K0IuOOTwnZgbQeB1 y5X1Qh6Yk2NqnugiY8Qk wMTdVsSwLlzfTVi5W6Tv PjwvdHI+SG75KABvBU89 STj2PQT4gEtgJFna MGQuM4MvnV2yEmYvCLBa ZGRkOyc+PHRhYmxlIHdp ZHRoPScxMDAlJyBzdHls XP6nIi6jWUCdDDIu sBtrfEJoRtLsb7xuEMOl TCytDY1odKkzR7PhzMN1 XGJkv0a8Fb38U04rK8Ah dXA+ISBnuKU2nLO6 kL4cUtPwEvR5YEacN516 EnIrdTZhDmtby3njg8zr oEc8YrB2YDXnpgJrhXxe LPA0d2EbPs27M55v IHdpZHRoPSIxNSUiIHZh xWbcza0vpL3yJs3+PGNv gOE4dZD8fS8uOzAfYnK2 KBkyA322UrBydAQm Thqeg0rjh8wyyFt8AuSj RDUnqqZdnPjgBPC9r7Fm Ty55L3WnxXlny2FjPsx2 qp73xCFfx9Y5tDQ3 P3IaVJAwkawsrRHrwAfs II4mMXMtdkxkJSBqaT3p MYHmT5y6IsImVbS4DIyz I0QufkD4RCBtcGXo XBUgyUMTpM2bwoapn8nz eznsYkUoRSVqOSb0HTp9 SYNmjWmcFdHrOXP8McG0 AQZ7ySJwlY6dvVed myipkT9lSjg+DUI4rCQq eEQPCX2pBkcpfEJ+PHRk TCK4rGehSMkmBKMscC5r QZAsT1z7LsMlHbN0 SVtfT8NxpzC9ZDEvzJAl PDYbjRPZcT3vanwnd4xc wxztGiIbMRWqFHk7DNh7 LWFsaWduOiBsZWZ0 UvX6OKR7xHHqnY0hmNaj sbcpzP0kNtn+QmlydGgg OIN9YPv6C6OwUpk7ELHm gVlnVL4ovLXyHBge Vz7blNsltQxbOR8aPBRo znnlp523QfJmt9tfMENz xZVrSSruVGU8G72zk8J0 NNWdZFJyCDS8cZI4 sY9yyThhvvmdtBQmvXfe ryWodKlfFOjsQFuuR709 HZOdnZxdTbJhSGq1J7Ml Dpk4IBXhgRrnJX5s aSOwZKvaCw5jgBjapCsl CD8tZQXjioxws951HbCz u1saAGYkmYWsGXvmUER4 W50eq1L9FNViSKRl HSH1fCG4pX7qwWaiyjqg bGVmdDsgdmVydGljYWwt YEvsC206TJDblXrwKqFv oNh8E6DaRmx6SNMb lYahTN1loVGlEOrqKm0b mZlwdXntXZ0eNLAuxuve b455WoUle4irHMFqoNWi QXqyICJ5O09it7U8 OYSnQCYoDOV9zAV5gV6e bGlnbjogbGVmdDsgdmVy yXrhCKvgMVqrZ324PSZy cDsnPlBhdGllbnQg SKgaBTh6K0SsAugikAO+ TY43EERfBS28sRVznNXl g4pqbTk9JlGfSHAzJMG8 nSopVDldt1ErMDPs X87hzNWck1T5OUDcjDnj mGDzQhCugMH4bA1oSCps onxuh9xadbrcSkqxs1cx lo47hW15R22jFBiy ZHRoPSIzMCUiIHZhbGln qh7dtT1qZk3+PGNvbCB3 mZB5uW4kDLZaWeD4KWms U636LsRjvFYuCsql j3xqi9vyoFa8LvZ9QYSf puQtsLiuXUC8d2RqUk85 P43gQJbkKSJqMKEcNNSl UNGowDtgos0kiD0q Ii8+UXBqtAM9pFO8gB4u YlMbUkL1ZIegY277UjMu iFQqAyiiA70yH6RmgJG+ WZSjLds9LHIagEqb FR4gwHUhSYxrRt7sCNO5 FkOgFaKdFQsvX9WpMRIk abrmerncqXE9WESrADHf iK31Md1nvJccQUDo gJSBvS2dvuzzl9ctjmwl IxNxRKLuHWk3AYu4GECk vGetLmKlZVH5ZqQ8KVA0 gKGeuX7mbDpujpmh yJ8gF4UbOLVgtljuYg38 dO2jHyJqTfM8RKihHkc+ OyKROTPwTLZCPe1QKCRQ RTwvdGQ+PHRkIHN0 fDfhWEebDOYrbO1mTOIv R9k0AsJzOqJ6CMgzP9Ca SLFbgpqwZz86mM0iCkGm QpK5USjnK8TbxqA8 AORerBCfRCpsSTE9A97z t4E6JQMnELMeATY9tPY8 oI3pqGthdqekxXKjkLzj dmVydGljYWwtYWxp T333TUKumDxdMoJgArSa DhY0KsY6X1CsRak6XLQl sTcsNM4dkUCwMYuyAy3d mIbprSroOR5oKDHz nyljSMPdtK4wIFAbtSAy mLamEH9xYHYahbriz180 BdWkXBC0DNNbhRRcW4Uo iM6xZaKcLWCiLIIv L1SurXDdHVzeO195DXqx KkP8CDMqbwTnR1LuOOTx gKgrQrT9h8M3Xr04XDLQ ZWFyczwvdGQ+PHRk QEA3yQxjVIuwWQIplW8u OXApN2y0BxZfPdU1TPbm O2LtYRBcuqljHt71sI0v PuJxHzC8KRsrJ4Yy aeO9JRGriUHvHPtwPOA0 Z57bv1I5LFMdOEYbFZP3 cZX4yB1tiHtddfezfAVo dDsgdmVydGljYWwt CGetV402TXNujNkmVnBL TUFMRTwvdGQ+PHRkIHN0 jIehXAdsIHNolM6hQPVa O8e5BiZvTiG1EQec C7DhQUFmmjqqFc63oH7g MrLsLtP9DTaoV7KzqyS5 DHQojOAsTRmsHRO0T08a w6K4MGKfVAVcTFU3 bOE5iE3dcXcoubyauEFa dDsgdmVydGljYWwtYWxp M224ONBxdQgvLcMkQPRv AV7tsOenmHE+PC90 ec33K5KlFdxgVhn5JXCe CWF4yLB2vX6gPBTgLMhc n2E4wLK5M8ElbmSort8l m2lpJYDoWNljN83a sQRjg6L4MTXzyLX6GERu vKscUaHseQ31Fav+PGNv aFtpb5KxQwtrj6xyt5cv eIx3CeNlHWMylpFy hGhgZZI0j2TdLn76H89z IHdpZHRoPSIzMCUiIHZh eXyiyl5aeR5jXi2+PGNv kFZ1oSA9oE3cJvNf LzR4NTyoY194BdVfwXCe Ovkwa8skt3gzdAr8RlNk ZFVfytXhdAloAPH9d0Ht Et72C4DycFqqq6Xn Zzs1uo35aQIvo3N8gGB2 Q8IdWIGggxjaeSHguLqh QI8rKAJpupquJENtqP9b QZXjY4a8IfFhXzS8 CPwrG9ZjtbS0ZRKsaNEn RPGbbXTWvE9xnytjn8ux pdupYwDrZPFkGDr7DIg3 LWFsaWduOiBsZWZ0 JpO9YWH0zXWfrW5voBug nwzcqJ6fCti+MYu6m1sc sUOjZP6gtFN2WQ35EG86 nXWgt3N9hMA5M1Ry MMJlcqypqrtssXX6VCFj XGRozM71Wi5tcAodXq1m NTWhDBU1PCZasRNrQ6Ms lO7mWyNeWHNgPPTb Y9GheHKiMNsbO132IGlg KpU4LVNmxfHgR2FkVEPf sDjxYoF6k0R4Tw9OMD66 TQ47XI78lNSbm6C4 pXO4D9OgYHUzgfqmvhua hSN7JGPvNZDvkQ70Tq6v pAtdWi1ySBYmFPX2DONn gOEqS7PwoA2wBdEf SPDdKUAqN1ZmzOZhKGma K755BUucEzU6YRTmeaHy W5UwWELbmPpuIiA7g9E2 Pm6OLa64HQ70JD75 dGDjw8C0vHW3K8GqQDQu dirlwylekYE1NQOnDWPc sN22Bj7ozJpkZz0gVMDg AJM6UNJjkIJmW9Gj wL6fPiAxCDStFBFdM0Qq hIWzJVrjI547MVezBkO2 JBPrpmPaK5WyAJMarIly AhT1u1D0Hr4GCLsv xxy0Y0XgPzgujDL+PC90 PQKrGJ94pEQqqWUcw7gw cVc3PtDdOPYiNNN9eVlf WCjkp4LvIEWeF44d [facility] (more content not included)... Normal [facility] CT Chest, Low Dose Screening on 08-24-2024 CT Chest, Low Dose Screening Exam Date/Time: 06/04/2024 17:30 EDT Reason for Exam: Screening;Z87.891 Addendum No coronary artery calcification identified. Ordering Provider: Romeo Chaidez FINAL REPORT Dictated: 08/24/2024 8:29 pm Abner Taylor MD Signed (Electronic Signature): 08/24/2024 8:29 pm Signed by: Abner Taylor MD Transcribed by: ELIAS Technologist: YAHAIRA Report IMPRESSION: LUNG RADS CATEGORY 1: NEGATIVE. [...] in course and caliber. Cardiac Size: Normal. Report Pericardial effusion: None. Upper abdomen:Limited imaging upper abdomen shows no gross anomaly. Musculoskeletal:No osteoblastic, and no osteolytic lesions. All CT scans at this facility use dose modulation, iterative reconstruction, and/or weight based dosing when appropriate to reduce radiation dose to as low as reasonably achievable. Ordering Provider: Romeo Chaidez FINAL REPORT Dictated: 06/04/2024 6:08 pm Abner Taylor MD Signed (Electronic Signature): 06/04/2024 6:08 pm Signed by: Abner Taylor MD Transcribed by: ELIAS Technologist: YAHAIRA Report last revised on 08/24/2024 20:29 EDT by Abner Taylor MD [facility] ED Clinical Summaryon 2023 ED Clinical Summary [facility] - Emergency Department [address] [place] [id number] ED Clinical Summary PERSON INFORMATION Name: TOOTIE NICOLE Age: 48 Years Sex: FEMALE : 1975 MRN: Acct#: Visit Reason: Neck pain; Headache; HEADACHE Arrival: 08/14/2024 23:19:27 Discharge: 08/15/2024 00:35:00 LOS: 000 01:16 Check In: 08/14/2024 23:19:27 Checkout:08/15/2024 00:35:00 Address: [address] [place] [address] PCP: Romeo Chaidez DO PROVIDER INFORMATION Provider Role Assigned Unassigned Dameon Varner MD ED Provider 08/14/2024 23:20:21 Laly Kaur LEGAL COUNSEL Nurse 08/14/2024 23:32:00 VITALS INFORMATION Vital Sign [...] Home PATIENT EDUCATION INFORMATION Instructions: Cervical Radiculopathy, Bknq-mx-Sirp; Chronic Migraine Headache, Zddi-xa-Ksgx Follow-Up: With: Address: When: [place] [address] [place] [address] Within 3 to 5 days DIAGNOSIS: 1:Migraine headache; 2:Cervical radiculopathy Patient Understands: Yes - Patient/family/careg iver verbalizes understanding of instructions given Comment: Normal [facility] ED Patient Summaryon 024 ED Patient Summary [facility] Emergency Department [address] [place] [id number] PATIENT DISCHARGE INSTRUCTIONS Patient Information Name: TOOTIE NICOLE Age: 48 Years Date of : 1975 Reason For Visit: Neck pain; Headache; HEADACHE Arrival Time: 08/14/2024 23:19:27 Primary Care Physician: Romeo Chaidez DO Attending Physician: Dameon Varner MD Comment: Visit Diagnosis: Diagnoses This Visit Cervical radiculopathy (M54.12) Headache (09959468) Migraine headache (G43.909) Neck pain ([id number]) The Pharmacy at [facility] is open Friday through Friday from 9A [...] alcohol and/or drug addiction problems; contact the [facility] 26/05 Crisis Hotline -text 4hope to [phone]. If you received any narcotics, sedation, or [...] documents With: Address: When: [place] [address] [place] [address] Within 3 to 5 days Medication Information: The exam and treatment you received today in the [facility] Emergency Department were for an urgent problem and are not intended as complete care. It is important for you to follow up with a doctor, nurse practitioner, or physician?s assistant editor for ongoing care. If your symptoms become [...] so we can reach you if necessary. [facility] Emergency Department has provided you with a complete list of medications post discharge. Please inform your educational recruiter/provider of your visit and for further instruction [...] mmHg Diasto (more content not included)... Normal [facility] Family Medicine Office/Clini c Noteon 08-12-2024 Family Medicine Office/Clinic Note Family Medicine Office/Clinic Note Chief Complaint 3 month F/u HPI Staff Patient here today for 3 month F/U ADHD SHIRIN 05/18/24 Labs 10/01/23 Patient states she had an accident at [employer] and she has had many aches and pains. She is having Neck surgery 09/27/24 Dr Clarke in [place]. She also asking about having labs for [...] was negative Mammogram: overdue DEXA: age Pap: HAIR DESIGNER - Dr. Sarah DAVIS Smokers/ former smokers: Low dose lung CT: 06/04/2024 - Negative, continue with annual screening List of Providers: Neurology - Dr. Lisa Martínez Facilities Maintenance Worker - Dr. Sarah DAVIS Derm - Dr. Francis Quezada - Dr. Langford - Nas The patient presents for follow-up for ADHD medications. She is not having any medication problems at this time. She states that she is having neck surgery with Dr. Clarke at [place] on 09/17/2024. She has been having pain [...] Chronic Has surgery with Dr. Clarke from [place] 09/17/2024 Placed on cyclobenzaprine 5 mg BID [...] [place] (more content not included)... Normal [facility] Comment on above: Result Comment: Elec tronically [...] PM EST With: Romeo Chaidez DO Where: [facility] [place] [address] [place] [address]- You Need to Schedule the Following Appointments Follow Up with Romeo Chaidez DO, XAVIER, PED When: Within 3 months Comments: 20 min slot cyclobenzaprine 5mg twice a day meloxicam 7.5mg daily have the surgeon send us notes f/u 3 months Where: [address] [place] [address] [id number] Medications What How Much When Why Instructions New cyclobenzaprine (cyclobenzaprine 10 mg Tab) 1 Tablets By Mouth 2 times a day as needed for for spasm Spasm of cervical paraspinous muscle Pickup at [facility]/pharmacy #[id number] New meloxicam (meloxicam 7.5 mg Tab) 1 Tablets By Mouth Every day Cervical disc herniation Cervical radiculopathy at C8 Refills: 1 Pickup at [facility]/pharmacy #[id number] Unchanged albuterol (albuterol 90 mcg/ inh [...] Restless leg syndrome rx by Dr Martínez Contact prescribing physician if questions or concerns Unchanged tizanidine (tiZANidine 2 mg Tab) 1 Tablets By Mouth At bedtime Migraine with aura Spasm of cervical paraspinous muscle rx by Dr. Martínez Contact prescribing physician if questions or concerns Pharmacy Information [facility]/pharmacy #[id number]: [address] [place], [place] [phone] Allergies Imitrex (Rash) Tape (Chemical burn) penicillin [...] major depression (more content not included)... Normal [facility] Coding Summaryon 07-27-2024 Coding Summary HTMLBase 64 FpvkaiucQAi6uTs+PGhl YWQ+SX7BYMZgD98nfREm mO4eE8BFYOmQEfuuWEBK LHuBLrLoaoCxYD2izFJi ZXJu IC8+ZU1ePFLoXteyaPTl o7O8kFY9C62mwz2yBSng mJC8IAFzOjAycwrnt6sa lKb9KQnaNxekPqCn WVOwzH89PUS7dA05Jv20 kNYxxXGjy5pcdZy6CiIh DFMbNOP2tOkfGUarz5Is OPHfV58wpCYog1S8 IGNvbGxhcHNlOyBlbXB0 jH5rMUdxkdkbq6feugvb Bnf2ol91oEIbu3M7kWP8 A3PtviY1ZICruZJk LfrraOBEhV0gtmgms5aw jlnfYjXaFCPjCJu5RHy3 VNRftZphTwZuQR41EIP6 PMVscnBcR1UtHIXy zVbdWgU1c8U1Wa9CE3MW KwcpZ0WIGUZNPSxvjVB+ VK44gi93Z0EsCekiVmf7 KDArIIK5sRR4fK0q FEOuGVyet1W0lQC8O4Nl ciZqdq7fb2jnITHzLSbs H16tdYHdl0D7CKTdzHI8 KWWprShsUuPzeR85 Oyc+QZLrgCikn6AbVcip g5puc4fgqGg3UnooTYIe xqWksOovQZM2w4RzFf3b EUDcqEA5fUF3pN5q CsSjHjY2WUmwD921McNt nXEiWtglS91uK7XhvIH+ WOLjQta4PFWyuIggWQ4w E0OqPWVudfyehFUv wBadBD1lKGDxzennTRPl lO0uBUCpW8i5FqZaPgY3 HWmxA9BrQGUjkjsvLz09 iP8zQlWkJuR4PPjc T5RsrhI6LMJglAHuAPje WYU6E37iv5S9RBZtTAPt OUV3pOK1pO7sxWkohiho bGVmdDsgdmVydGlj PPnoUQdhX831OZMcdMfy PkNvZGluZyBEYXRlOiAg MDkvMjQvMjAyNDwvdGQ+ UVSdKCX1hBpxSZZi eYGlVNofRl3nnDhlaNxm HN9cRNPxrnxxPIHywE3h BQFunNOwxNjsMG1gGXJi hojsx479XdWxGIJ3 QUXkcJLjX0WwxU0gKsYo NQSoIDRxW6EsbIVgLBtp J025OCllPmP3UGNzzcRx O6OmWZBwvPwqXrV8 b1M2Fg3Nv6LepvtcZ0Kx zQLzXxPbYtbmFCo1N4Xr PjwvdHI+JU97AGQkOL75 CHt7REM6oLsdHQwe RQBwD5WwgW7aOvNuENFa ZGRkOyc+PHRhYmxlIHdp ZHRoPScxMDAlJyBzdHls KQ8eQj8uKJGiPEJm gAppqMZmSvBhv2njHKNe VTlgDA3ilUkkW1QlmUN7 DQQjw5u2Ti52D24mT6Cs dXA+IOAfoRG0uCJ3 qZ9wCjWrRaA9VXjzY124 ZdWyrNWdDtcik1kiv4yx kWz0AwC1HOGzzsCiaOgc BUK3w0WySx83J74j IHdpZHRoPSIxNSUiIHZh oXircp5aeA1mOk8+PGNv lEZ5iQU6cR5uWnVdNtZ2 NDbpE634RlYyhLQa Txzzy2tfr3mefBk2KmUy QTKearHpaMfbBDF0i3Yu Lt52Z8MahQuqa9PdAqs3 hf18hURbb4C3jSJ0 N0ZcIIWjrdawzLBlyUom AF0hPWQuqpgvJLNgrW2z OHTzZ6a9WhXyPpW6OEji K2SwmhM1AJKadYFr BKPzxDODvR3beuaek2pi aobdFkOpQGOuLZw1TTy8 ZKOxxWipEgYcZZD5GfU7 NKN8dQFhpC4dfWhp lgeecD1qDyj+AYN0bCHe uSOTXZ1zAjxlpHT+PHRk DEB8eYisDGubQQLwpJ5f TSNdH5a7UhRlVtI1 KBodU6RplaL3HYAkyRAl WWKigKQZcE7lkwjng1yk tpczEgYxKJYgYCu9RNh6 LWFsaWduOiBsZWZ0 UcU4ZAV0zNLazJ1egDgx putoaB8oPgj+QmlydGgg KOM3AXj0F9SrMur8YNPh nCfwTA7ycPKcGLee Qq7kkDalpJttHP4xJOMn rhpve166HjZdx3qlOZPe fYVwZLkpXWC9L57fb8A1 ACToNYKdTYP3qMZ3 aW2kaPhvqxaqbORlyHah wwUylAooIOpfYCzoZ262 MLXksButTrSaAJb6C7Zg Ywd2QKNwfOzuLG0l lAUuYMbrRy3viPpzyJaf YQ2pUHEpzvjfp048IgMm o2duRWQwsMJlTPdkBYG6 U92gp8K7UONqZEYy QMA1sPS8xQ5jbJhzkpgu bGVmdDsgdmVydGljYWwt IMeiY279YLVpfBayBkHk tOe3V3DdUlj6OCCd nAjbLL2dzZJtEAbrDj4z tRtzoZyxQC1cEPPuapuo i917ZrXjs9grCCZbcGJp UMyqNAY8I32op1N8 DHXmAURxKWL6mBF5pI8w bGlnbjogbGVmdDsgdmVy oDvzDCcuZEqsJ352CAKf cDsnPlBhdGllbnQg YZmhDNw7W5EcUsuxtHY+ AS21MWAtSP77eBZesWDv y2myaKh9NxPhSHBcRNT7 qDrnXAgyt0BbIRDc Y27ayXOci2B4RFKsuLfs jWEjJsBinBQ0rR8bPKnp blhwa7eniyycAgoui9bk nt87eT07X62sENrf ZHRoPSIzMCUiIHZhbGln tw5qeA8nSe1+PGNvbCB3 tAL8vX6mYIRyPzC1VBua N725UkRuzXDbOokh a0zvn0dehAk4HpM7LSBr ryKlmUmsCGD7n1GlWr90 X10aXDxoNPIrQHZlZAWj RTJdpEbcuy5tvZ8c Ii8+GFYomUW4wOE5rJ3w OdZlZbQ7EIrmU127EjGl lFHmWbvwE03jL3LxuVJ+ UDNcTcc9KXLxhOge EK6poQTmYCwfBr4nENZ5 LiEiSiTjWWyfW5WnSJRi igfofetolRD4XWFsKOQx oZ29Jj8djDdcMPYm wSQPbR2fnukke4insycj LfYkNHCrGUh1SWo2HWOo iUpzPkEoCIO2VhR1QPL3 eDPtkY5yfDrkrxhj nQ4lP2DxHTDhhzaqRl92 mB4yVqHrYiH8KUfkBzr+ HnLQYIUzBURFIz4CQEJA RTwvdGQ+PHRkIHN0 cTuoAHmePSNpoO9kXMGl N3s0OqJaDyZ4VEtpQ5Lq RHEldzysNp31gQ0gBnKo XkT7ZVndB6AjigB5 NTLotKAcOHanGRC0U47x s0Q1VMPdRBVkMCX5qOI9 cR2ewKwwnmnwiRGkrQaw dmVydGljYWwtYWxp E492LANevSmcGfLxVdAm TcO9SwS2F9DkPiv2SWCp aInoWL1inKZjDSpiVq5k nPjqzWikMS9lYCIv vcdlJBKjxM1iUFAznGBm qLjmBB5cCHWcigbxb400 UnOhHVU9MRPtfTPeC1Cr xV7mXaMoPSEfTVVf G6GawZWmIUxzA932GNez GzG8IHGkxdKiJ4VlNJCo eQmjLeI1c3S5Gt00XYKI ZWFyczwvdGQ+PHRk RZI1bZxkIQpfBLNthW8b CNGiD9f5CsUqKtY9WDct L2NkXIZmonepXi82wG7k EbCnLaR8USxwM6Fy amK2FUKevOKeZNnoLCK8 R92xb5P0WLNpMZCrNIS8 mXZ6tX6xvHfmbjuqxYAt dDsgdmVydGljYWwt JKgpZ313EKEgsAonFfLN TUFMRTwvdGQ+PHRkIHN0 nHrgIPxiHQPveJ8aHTRg I3q7UoHtXeX8VCps I5XrOKGpuwxiGj52kE3p HhPuFhQ3YSghR6SyxcL4 TPYnkQOuECumQRC4O77w d9E8RDMeZVMbPEY5 nIG2hS4jwFvjkxoxiNDh dDsgdmVydGljYWwtYWxp E399XXLfuUqeJzBiDSFt RF5rpXuefYE+PC90 ri12Q6HnFaqySvz6VPQn LGH3wZR9tE1fFXOiZBxz f9A7aBZ2X7ZqptOtmt8r h9dsSQFhORsaJ13j gLGen7E1QAInvJV5APUw sHurNdGskU20Gsj+PGNv kRhka5VyPxhoz6kin6to pRi9LdStJPBzojZl gPovUTI6o5NrSm32O28r IHdpZHRoPSIzMCUiIHZh wPcwja9sxU6oIb9+PGNv zFS4uBM0zX8kYxVx VwD2TKyvV718LmCioLVr Idwkc9pwq9cmzDs5XvTc HAGqivHukCyvAIO1x4Tf Lo92G6MqlTsnn7Oj Axy1is10tKLtd9B1eTN1 Q7DaWKDziroleOHlgQfi LV9gSRGjlysuVPFkwB6y XVNaS0y0UxAuWnM2 YLvyE6UtnoV9DCPcoRPa KRRlmXKXpY3xjuvbg4ha qgljTiUxKHLbEGe7TXl4 LWFsaWduOiBsZWZ0 SvK5JWJ9vTGlgW3zdXrr dhwwaH9tJbc+WCp4w5pe cKDsBT6ewGN2PD58UG29 jBQlu3I5mXW7Y2Ub FGGkafoahudmyQW4RLHv KZYxmO34Kd1ugHfdUs5s VCQbYLL1VZUagIKxL1Wh mG0hRbFjCTFcFSMp O4MjfPKaMFjfJ541MPom KzM1BFUninJpQ5CrEQVk zHchBiX2s1K4Xa1YWM73 KK62AT88uZFqs5A4 qTU6F6IvDNXlerjaphgg nSK6TAJlDPNvrF34Iu0z bHwjUs3jQSCgXVZ6FHOk tELuQ4AsrN9dEtRo UZPgJNZdP2MvmIRxPJnp I938UOupPlN9HZChirBf N5GjGAOuxUmrMuM7m5A2 Me6UHc27LJ77DO91 sUFsc1Q8bAT6X9CgUFVs fmnczhehrBH4YTNsEGQi xC31On9qaIooDu4gJKWa RIP5BTStgBQpU8Xn zK8uPzGpRBKwXHMbA2Es jAGoPYbkU715AUixMoS7 EVFohmGhQ7ZqZXUxrQwd TnO8u0H0Yp0JUGlq ahy2N8TcRsumhJG+PC90 OGOhPQ03aSDgqFCbm7dy gOf4TmDmSUGfGDK1gWeh [id number] [facility] (more content not included)... [facility] CT Spine Cervical w/o Contra ston 07-19-2024 CT Spine Cervical w/o Contrast EXAMINATION: [...] MD 07/19/24 8:09 pm Technologist: Nayla YUSUF [facility] ED Clinical Summaryon 2023 ED Clinical Summary [facility] - Emergency Department [address] [place], [place] [id number] ED Clinical Summary PERSON INFORMATION Name: TOOTIE NICOLE Age: 48 Years Sex: FEMALE : 1975 MRN: Acct#: Visit Reason: Neck injury; NECK RT ARM PAIN Arrival: 07/19/2024 18:33:44 Discharge: 07/19/2024 20:53:00 LOS: 000 02:20 Check In: 07/19/2024 18:33:44 Checkout:07/19/2024 20:53:00 Address: [facility] [place] [address] PCP: Romeo Chaidez DO PROVIDER INFORMATION Provider Role Assigned Unassigned Angela Fisher CNP ED PA 07/19/2024 18:36:34 Alona Acosta LEGAL COUNSEL Nurse 07/19/2024 18:48:05 Jared RN, Viridiana Brock [...] Strain Follow-Up: With: Address: When: Romeo Chaidez [address] [place] [address] [facility] ([facility] Within 3 to 5 days Comments: Take [...] iver verbalizes understanding of instructions given Comment: [facility] ED Note-Nursingon 07-19-2024 ED Note-Nursing PT. C/O [...] A&O X4. PT. has a steady gait. [facility] ED Patient Summaryon 024 ED Patient Summary [facility] - Emergency Department [address] [place] [address] PATIENT DISCHARGE INSTRUCTIONS Patient Information Name: TOOTIE NICOLE Age: 48 Years Date of : 1975 Reason For Visit: Neck injury; NECK RT ARM PAIN Arrival Time: 07/19/2024 18:33:44 Primary Care Physician: Romeo Chaidez DO Attending Physician: Brenna Yoon MD Comment: Visit Diagnosis: Diagnoses This Visit Cervical muscle strain (S16.1XXA) Neck injury ([id number]) Neck muscle spasm (M62.838) The Pharmacy at [facility] is open Friday through Friday from 9A [...] alcohol and/or drug addiction problems; contact the [facility] 26/05 Crisis Hotline -Text 9YENT xf [phone]. If you received any narcotics, sedation, or [...] legal documents With: Address: When: Romeo Chaidez [address] [place] [address] Business (1) Within 3 to 5 days Comments: Take steroids as directed until complete. Use muscle relaxer and pain medication for muscle spasming and pain. Please contact orthopedic doctor that you have seen in the past for follow-up. Ice as often as possible over the next 24 to 36 hours. Medication Information: The exam and treatment you received today in the [facility] Emergency Department were for an urgent problem and are not intended as complete care. It is important for you to follow up with a doctor, nurse practitioner, or physician?s assistant editor for ongoing care. If your symptoms become [...] so we can reach you if necessary. [facility] Emergency Department has provided you with a complete list of medications post discharge. Please inform your educational recruiter/provider of your visit and for further instruction on these medications. Any specific questions regarding your chronic medications and dosages should be discussed with your primary care physician(s) and/or pharmacist. New Medications [facility]/pharmacy #[id number], [address] [place], [place] [id number], [phone] acetaminophen-hydroc odone (acetaminophen-hydro codone 325 mg-5 mg [...] every 6 ho (more content not included)... [facility] Coding Summaryon 06-18-2024 Coding Summary HTMLBase 64 InmweckaYRe2vDs+PGhl YWQ+EA8BWBXuI00bbJSq pZ8uK6TXOIjZSqgmYCFI XThURvQmzxKsBR2qoMLp ZXJu IC8+PL9iCNCzSuczvXBx x8P2uAT0K67ccv8hJKbr jDJ7RARbJxWdpvxxg9zu lEf6TOhhWyjqXmZm AHLyrH12VSR2tE60Dt07 pXBcaKFjf7mgeBc5ViPd HKHpECD4tGluQQyxz6Zv BFYwP75dkSNzq5U4 IGNvbGxhcHNlOyBlbXB0 hJ1qZYvdvpcpn4slaegm Djo9xm08mOHdc4Y7qEI5 L7VsjpG9OFBwpJPs YoahmNAYuK0skriif2yo wqndXkRbLLDyMQc5ZEr8 WSSyjVodZrPnAK14QVQ5 PWKvojDlD5KlBQQn iZpeLsO5u2E7Ff4NQ5QL PnryA7HVJZUGHXbnpFF+ EF72tx98J0DvBsreJoo6 CWMyQSK0jCL7sU2v HTDwOUmtl9J7mMI3B5Yt qfQfbx8aa5inFNEuQRnz U56zqQUjs2U0NYAtiBI7 HNCnqNhgJpSauJ34 Oyc+WVSolLoah6GlJrpp j9gew7nrdMp2RfttGYNz eiEhxWjnUQH9i7FxCx8l ODPilRQ6xJE2uU5l OtApOmP5WInoI030NgIe rACxGtpmP81vR4VwgSM+ VEDdQxh0BUWdgXdzEI4m O7XjBEKqabmeiOFd kJkfHS9uLFBbkohwRGLd gM6eTIGuE7v4SkMiDeS7 ZHaiS0LgPNMtdltlWs08 qH0gPyAeNyA5TBvd S0TskkY8YYCsuGFhGHlm ACL5Y87hy3A7PGLoPHBs JUY3uCG1kE7frUbkaxub bGVmdDsgdmVydGlj GVskHXapU624XYRoqLno PkNvZGluZyBEYXRlOiAg MDgvMTYvMjAyNDwvdGQ+ KMMzZXE7aLpqSZRo uSOrSGhrMd1noBjkqDxf KO2hOIErfxouJWVtaQ2j HIRdcYKjeDqeLM0eXYBr neodb514MdQcOHX6 MXObzXVgJ9PkoS4uEeUs DWIjSWTpG0UbcUNkQGeu R566ICibQmH2VPAkjaKd Y0KrXJMefSpcPeO1 r2V1Qx3Vi4GaucixJ3Vq fEKnTeFfVmbrIRx1E7Vb PjwvdHI+DS40BGAuVG65 WGx9RTP3rFhwUYla AAHuK7TcgR1eSuQsEZOd ZGRkOyc+PHRhYmxlIHdp ZHRoPScxMDAlJyBzdHls YS5yLp2zCADyHFAz nQcbsYWrMsDkt4wcKTWn CMvfRS6kkLvyR6XzuCH3 KPGgi3l0Dx88O08yJ2Ry dXA+MFCsgVY9zFI0 sU7qBhCeKoW3TPqtR187 TlTeyPDtTdngd9gjb9up iWj0XxD4JRIcrsWgaRpf FPW8m4NhIj06A15t IHdpZHRoPSIxNSUiIHZh lMsttg8jxI2xKh5+PGNv wTR0kJX1bE0sHvYdQcO4 GPiyU682WpSmrFQm Hgxli8gjf0sklYf8SwNw HLFzffFxoLrzCDW3b9Sy Nh83B7YmkBjkf2BaPyh2 ha60xHTuf9Q2tJS8 D1WdHTTqubyzxRMgbUdf NL1sTEGdmlgbDRIitC4j ARGwP5d3GbEiEfR3AOev M9NrrlT5NHYinKOl HLMbvTLUnV3nlwvmr2uc iymhIcBhGJUoFNm8XTq2 UNHmgHyfNtIjMMN0KzM9 MSL7xFExfV1kgJko xgaqhO5kOkb+POU0uAPu uHJWKO6wQjhjgUO+PHRk ORA0yRrkYIkkKFZosV3e FIMvI3z0DlYmHsE6 LPlyX7KydhE3GWCbuMVf EUGkhLUJkD8btnjiz7gn ugyvJeUnCSWaAMt8EOc9 LWFsaWduOiBsZWZ0 DzO2MOO4pFIljH8hzJtx xzfplL2bBch+QmlydGgg NWX4XBu9T4DxUci1AFQj fNxqWD5azSVfUMcr Im0zpRtujBmfQZ6pISMs kknuy503BlDtq0vzOMVd rEOpFBxnDDS7R93xj0C3 DNHnIUXvSJY6kIG4 tR1xaFqrhuotdRSaaLjl mmGouIaoCKxyAEooX708 LZGniBudXwOyAUy6V4Bt Gma5GRQkyJwxGM4z lIZgZPquHs6ylAriiAks FB0qKTJvecfxp269YuAz c2doPBCxdHKsWFeuQMJ4 Y59xn0J2KLReEMQx NJF6oFC9zG6ouJinhpsk bGVmdDsgdmVydGljYWwt VZodL738QTPemNckBvSi oLl9F5TaEhn6XEJp aIqeRV5sjEKfKGgpMf6u wPpgqHwvLY5pOYKshrcn l152VmQbq4yuVUKsaKPk VIisKWT3B83zc8M5 VJPqRWJrCXL4bFS2uL2s bGlnbjogbGVmdDsgdmVy kCzhUNrcKHciZ566RRDv cDsnPlBhdGllbnQg UOujUHn0K1AgHuermUB+ QJ09ZEUwWJ24oVCrdQVn u1mdqBe3KkJsCSNyRJX8 zRzaYRvis7UiZFGs I37kcMMgo3B0PQSolZsm pBXbFrWncXN9aW1aTIsg jxiga3fudqmwTvkus4ld gv50aW19V90nYGaq ZHRoPSIzMCUiIHZhbGln wy9haN8mQj9+PGNvbCB3 wYC0qX5mBKJlWcT1EHin L664GtFuqQAoIgha a7gph3agxIc1OqL6RTRl tzKvbQcwCXZ5f9TnZc62 W06yTJqaVQIcXWXoACTh VRJawPpafn6fiC9v Ii8+KYOolLI0vTI3lI5j IbKeBiO1LEbiZ343LgIv mYIgQdbnR82bY6YzjIY+ ANVrPir1HPBewYeu IZ3onDShKOotLv7tMWS5 YsOcWlEbTLsnT2HoBYAh pyzrxnimkTO9MHWfKLVf mV24Kk5kbKksBXSw uOGOqB3tpxruw0oexavi TsPxRPBkLVw7YBp3UGKq qNnxSmOePNQ5TwB3UGZ4 jXKsfZ3ohVkmcewp uH2pX1AmHMXrwivqDo79 qS2iVoSfDiA3VRcvTgh+ KwZFWKSwKXQOIj5RLLKK RTwvdGQ+PHRkIHN0 tOjxGFzfGOVjrH9zBGMa I9n7QnUsDmS8KFthG2Px NXAbooweBm03jR3uKzIf LnT9LYkkA7FupaW8 PNMwwWHyMOptNHJ5I77h m0T2QIMuCJQmLSF6yGA9 zB2bgTldhxuskBAdzRzm dmVydGljYWwtYWxp Q679KRIomKgkGrBzRjTo BeK3ByQ7Y7EfRuo8XQVb bSliCI3urTIjPJooOc9t mQajbVmmMD0wAMQz vwldCFCggX6uKDDsgUOk bNcuZT6fCPFapyybd392 InVkBTK9ELXhqKWmI1Js jZ8gBfAdPQVhMURz A4SswSIjRXelB743WDqf UbR0FAOlpnWgZ6OgQPPz mKxuBkO3f9L3Nv37SUNR ZWFyczwvdGQ+PHRk ZFT3qVxuBIvgRSYunV5x CCGqY0m1IqIoTkO0RMlj F4JcEYDcnvpmDc06jU0u AeCjSyK1FUusA9Gz ucM0GWGjsKFeONwzAWF5 V43yj7V0XBLvPEZiJSW5 wYF0dV4zvZconqbkeMEc dDsgdmVydGljYWwt HYsoG177QTIpnHheCwJZ TUFMRTwvdGQ+PHRkIHN0 qXnkUEndLUJbbG2tEJWu H1l4XoEpExS3RVwc P4LyFRJdmsxsUa46kY8o JdBdLjS1FCogS2WbfhQ8 IKEhxFRvBNywNXA7C43l c8L9FJFaCVSoRZQ2 eWQ0pJ4yfKyuvvgpaWWk dDsgdmVydGljYWwtYWxp J500PJNoxRenMrNfFFEg MX4scYekhIM+PC90 rl67Z4EwZwavOcf7SXSf DUA1fKI4cP7dEWPbFWqw e5R5aNK3M7NpxbJbyz9a m9vkAYPmHTiwL09v jEBvk2Y0COYviHI1WGTv iGmiYrBapO28Wpe+PGNv hTfyk9MhQralr1heb1km uFh0NyXtNSDcvuXd gMspPWK1h7QiUm57A25y IHdpZHRoPSIzMCUiIHZh gVbfyl3ynO9vEw7+PGNv aGS0cBR6vP6qAqHo KjS5ZJjjG799UeFbrUFq Yeldu0nts9roqUc5CaOs PCNamfMswOlbXFC1y9Wt Ty90O6BdbAman4Ng Jnp6xy82sTQwj3G8dCX7 X7TuCWUyelkwmIPxxOnf NQ7dAJKsjnwmRCQgaT1y ZVXwP1v6BxKwXeK8 QEhoF6TjaaW9LKBduKMl WJZiuWQHwD8hjnigd4oc pnppKkGwAJJgJFl0HId2 LWFsaWduOiBsZWZ0 HaE2MZJ5aCBvfK7hlVpv rbwfxH2vKtt+HAb2e4rj fLUkSX0ltHH9JY22WB98 vURlw8F5uRR6T5Ye TUQtivkshfejpCU0PURe TBSorI82Ux2fnXenYf9l UTUfRRZ9SHGbnWXfN5Xd dV9aWbHvKDPpXMIl L3UbjEVvIGufE728HDjy YqO7CJMfhqQaF3PqOAEc hTziLtG9f8U3Me1SZF23 LG63PJ80hEQrr9L7 iPA8P3ClBIWnskqeawaz yCH8YQBaKJUpmN65Zv6p vJhdQu5wQGLbZRY9LCBn gSDnV5QvbF0vBkSk WQSaQEGfZ5NmsMKjBFnx U115ADuvYpJ1YCWqfcFn H7CrQFXkdMtoYpC1d0N1 He0LGl38VD26DH51 gXRvi1F3yCC0F2WjIGFk dzrfrwxpxRY2ZHJmDLWe mR38Ry6muMzcNc7vRQIh WEM3OFYuoFDbJ6Vw fY6qRnLyWVUgRCJwP2Jk iHCgVPxdI137TNzrLkE6 YWVvqfRoR6RkOWGktXer WsP1p8B8Ga6CQTea dkc7S5JsFoovhIR+PC90 ETZxJB05sELlsVMzw7qi eWg1TyAfALGvVWN4wTpb WWhvm7NaSAHaK19y bGF (more content not included)... Normal [facility] ED Clinical Summaryon 2023 ED Clinical Summary [facility] - Emergency Department [address] [place] [address] ED Clinical Summary PERSON INFORMATION Name: TOOTIE NICOLE Age: 48 Years Sex: FEMALE : 1975 MRN: Acct#: Visit Reason: Headache - Recurrent; MIGRAINE Arrival: 06/07/2024 23:02:53 Discharge: 06/08/2024 00:47:00 LOS: 000 01:45 Check In: 06/07/2024 23:02:53 Checkout:06/08/2024 00:47:00 Address: [address] [place] [address] PCP: Romeo Chaidez DO PROVIDER INFORMATION Provider Role Assigned Unassigned Yovani Negrete DO ED Provider 06/07/2024 23:05:02 Anel Cerda LEGAL COUNSEL Nurse 06/07/2024 23:08:53 VITALS INFORMATION Vital Sign [...] Family/ Social History Medical history: Resolved Migraines ([id number]): Resolved.. Surgical history: Rhinoplasty ([id number]) on 07/10/2016 at 40 Years. DNS (deviated nasal septum) ([id number]) on 07/10/2016 at 40 Years. Nasal polypectomy ([id number]). Appendectomy ([id number]). Hysterectomy ([id number]). Colon ([id number]). Comments: 11/18/2023 21:34 Etc/GMT+5 - Shuff, Patricia RN resection. Family history: N (more content not included)... Normal [facility] ED Patient Summaryon 024 ED Patient Summary [facility] - Emergency Department [address] [id number] PATIENT DISCHARGE INSTRUCTIONS Patient Information Name: TOOTIE NICOLE Age: 48 Years Date of : 1975 Reason For Visit: Headache - Recurrent; MIGRAINE Arrival Time: 06/07/2024 23:02:53 Primary Care Physician: Romeo Chaidez DO Attending Physician: Yovani Negrete DO Comment: Visit Diagnosis: Diagnoses This Visit Elevated blood pressure reading (R03.0) Headache - Recurrent ([id number]) Migraine headache (G43.909) The Pharmacy at [facility] is open Friday through Friday from 9A [...] alcohol and/or drug addiction problems; contact the [facility] 26/05 Crisis Hotline -Text 3RIIJ ln [phone]. If you received any narcotics, sedation, or [...] legal documents With: Address: When: Romeo Chaidez [address] [place] [address] Business (1) Within 3 to 5 days Comments: Call for follow up appointment Return if symptoms worsen Also follow-up with your neurologist. Call to make an appointment as soon as possible. Medication Information: The exam and treatment you received today in the [facility] Emergency Department were for an urgent problem and are not intended as complete care. It is important for you to follow up with a doctor, nurse practitioner, or physician?s assistant editor for ongoing care. If your symptoms become [...] so we can reach you if necessary. [facility] Emergency Department has provided you with a complete list of medications post discharge. Please inform your educational recruiter/provider of your visit and for further instruction on these medications. Any specific questions regarding your chronic medications and dosages should be discussed with your primary care physician(s) and/or pharmacist. New Medications [facility] [id number], [address] [place], [place] [id number], [phone] ketorolac (ketorolac 10 mg oral tablet) 1 [...] Reaction Symp (more content not included)... Normal [facility] ED Note - Physicianon 2023 ED Note [...] Family/ Social History Medical history: Resolved Migraines ([id number]): Resolved.. Surgical history: Rhinoplasty ([id number]) on 07/10/2016 at 40 Years. DNS (deviated nasal septum) ([id number]) on 07/10/2016 at 40 Years. Nasal polypectomy ([id number]). Appendectomy ([id number]). Hysterectomy ([id number]). Colon ([id number]). Comments: 11/18/2023 21:34 Etc/GMT+5 - Shuff, Patricia [...] 09/15/2023 21:47 - Olimpia BREWSTER, Anika Stock 11/18/2023 Smoking tobacco use: Current everyday tobacco Number used per day: 1/2 pack daily 01/29/2024 Smoking tobacco use: Current everyday tobacco Number used per day: 12 ppd 04/13/2024 Smoking tobacco use: Current everyday tobacco 06/07/2024 Smoking tobacco use: Current everyday tobacco Number used per day: 12 ppd Electronic Cigarette/Vaping 09/15/2023 Electronic Cigarette Use: [...] Rate 7 (more content not included)... Normal [facility] Ambulatory Visit Summaryon 0 05-18-2024 Ambulatory Visit [...] PM EDT With: Romeo Chaidez DO Where: [facility] [place] Normal Smoker, pp_set_radiology_ subspecialty, Mik Echevarria\.br\ Medications\.br\ What How Much When Why Instructions\.br\ Changed hydrOXYzine (hydrOXYzine hydrochloride 25 mg Tab) 1 Tablets By Mouth At bedtime Dyshydrosis Pickup at [facility] [id number]\.br\ Changed ondansetron (Zofran 4 mg Tab) 1 [...] day (in the morning) ADHD Pickup at [facility] [id number]\.br\ Unchanged amphetamine-dextr oamphetamine (Adderall XR 20 mg Cap-ER) 1 Capsules By Mouth Once a day (in the morning) ADHD Pickup at [facility] [id number]\.br\ Unchanged aripiprazole (Abilify 2 mg Tab) 1 Tablets By Mouth\.br\ Unchanged dupilumab (Dupixent Pre-filled Pen 300 mg/ 2 mL subcutaneous solution) 300 Milligram\.br\ Unchanged fluoxetine (Prozac 20 mg Cap) 1 Capsules By Mouth Every day Anxiety Mild recurrent major depression Pickup at [facility] [id number]\.br\ Unchanged ketorolac (ketorolac 10 mg Tab)\.br\ Unchanged [...] if questions or concerns \.br\ Pharmacy Information\.br\ [facility] [id number]: [address] [place], [place] [id number] [phone]\.br\ Allergies\.br\ Imitrex (Rash)\.br\ Tape (Chemical burn)\.br\ penicillin [...] instructions at home:\.br\ Medicines\.br\ ? \.br\ Take ffes-ckz-jgcgpwo and prescription medicines only as told by [...] services is a problem, search for a [facility] mental [facility] care center. Public mental [...] with Attention Deficit Hyperactivity Disorder: chris Houser [facility] Office/Clini c Noteon 05-18-2024 Family [...] was negative Mammogram: overdue DEXA: age Pap: HAIR DESIGNER - Dr. Sarah DAVIS Smokers/ former smokers: Low dose lung CT: DUE List of Providers: Neurology - Dr. Lisa Martínez Facilities Maintenance Worker - Dr. Sarah DAVIS Derm - Dr. Francis Quezada - Dr. Bautista HPI staff / Chief Complaint confirmed with the patient Interval history: Patient reports her migraines improving along with the ADHD treatment. Patient has been listening to the [employer] Audiobook. (anything tagged from the patients medical record will be at the bottom of this section) LABS A1c: Hgb A1C %: 5.6 % (10/01/23 16:55:00) TSH: TSH: 0.96 mcIU/mL (10/01/23 16:55:00) Future Appointments [facility] Appt. Date: 08/11/2024 2:40 PM Scheduled Provider: Romeo Chaidez DO [address] [place], [place], [id number] Phone: -- Fax: -- [address] [facility], [place], [address] Phone: -- Fax: [phone] Review of Systems PHQ Score Initial Depression [...] Nausea) Chron (more content not included)... Normal [facility] Comment on above: Result Comment: Elec tronically Signed By: Romeo Chaidez DO\.br\Date and Time Signed: 05/18/24 18:48 EDT\.br\Electronically Co-Signed By: Otis Ambrose\Date and Time Co-Signed: 05/18/24 14:45 EDT Coding Summaryon 04-27-2024 Coding Summary HTMLBase 64 UfsopssbSWn7dIe+PGhl YWQ+HJ0WHIPeL70jxGWl hR6zF2NCPAuXOzkfMLWD CLaPDiRzqoBaAG4ysKQp ZXJu IC8+XR3iISVeUocsnHNk j3Z5sZV5C42fii2pXWcg nUL8EKChLnSrhxolz8uo tYd9JNwbMpswPlEy UDZwgY30QRQ6rS65Fq32 dVQssPShj7divRq0GhCb OLHbEWC8lHrrRTtfy6Ke GBDoQ34ceEKcz3L0 IGNvbGxhcHNlOyBlbXB0 qC2tQAurotmdb9ufzgqx Uxg3uz86eLQtw3V4hAE0 H2GqyrE9YNPdxTPq BmciaKXRyM2hpsfhf2rp ngtdOxJiRLNmROo5EIm5 HFVypOvwPaKjTF22OIJ0 JGJxztCaG1TyTJSp fLtqHrB3b9M7Qp2TM0BR RaefK6EHUSXIORthdGK+ SV39kr96D9QbEbeiJwv6 DUWxNDB7yWE6lH0g XSCeMLplt1H9kSP4D8Kp zfKceh6kp2wfSIEgDJdv R16jbHIos6K7RTRclWB9 LEPvqCesGhYilS61 Oyc+ZSXobGimo3TaXyko u4syv1efzQu3NwyjPKXm tmPbcKseCXR1l0AsWj3h ICLnzVO9oUC3iR0x JlMrThH3ZAciE125SeNx xBUcScdaY59mJ0GtbIH+ IRKyRvd0CYEpcTmmVE6f C4PvFAQxfgxiwVTw hKxkBQ5oWSPyvvjbVMIa vT8tMCHeU8h2CpElHhG2 VLelY5FmQPIzivjcDh93 vK6sViGuXwA7EEpv Q3LbrnW3LPZexHVkCBgh QQT3I39zt5H2IDSbXBHd VSA4uZL3pK7xaHpxqsap bGVmdDsgdmVydGlj SUbkULeiL047KWBrzRzp PkNvZGluZyBEYXRlOiAg MDYvMjUvMjAyNDwvdGQ+ HAWzZSD5dGadFBYk rIWhOCgrTr8uaZdyvLih FX2xRIVwmouuJMMkhD0k MTDdyFBjvPpxWR5oJOEv dtqke002ZiQdJAU5 IDHayMRvQ5BmuS8sFxOx HBAsOBDaO4UkkDZvKYhm D873ADznHnE7TYFtvjFs A5VlCPYenVzfXgJ3 l3X2Uy9Gd0GvsdujO4Qb iKDbMtFgLhmhYRu0Z3Ju PjwvdHI+JL08KKFyUY69 LRz4NZF0dEvlRQag TUFuC4CdtK3sZxPlPWAr ZGRkOyc+PHRhYmxlIHdp ZHRoPScxMDAlJyBzdHls FA6tBe8rMBBiXYRj cSyhmACnYrXrw4omUHKo LSmbSF2gtGosN7NihPK1 EQWfg8k1Wc57R75dE4Kp dXA+ROCriTB8sXA6 aO8gWeAxLpB2XYbgW942 GiQbnHYlZzhfq4zak9qk qIw9LfH8BFOdrpFdoVqp ESH1k2MkUx09R22x IHdpZHRoPSIxNSUiIHZh dTdnkn2ndZ9bYg0+PGNv oHT1vHJ1mQ5tGdNhQjE5 ZZwbF903VpVtxYJm Mrcax3ktf9yyoHq7UiSj QPJgsmWrqUpyVAG8d7Xa Rr07M2VlzJjok1JjKta3 qq33bUAgp4L4tGE9 L4PcWXAgyfrqdSKqhVmz UX7wMKLbeevuNTDqwC8h FGBmL2p5ZfVtZpF0LTib L6OoilR9WZQjpRQg VSZkdTYQcV5hfdppj1ne enfaAsHbMSGwMIu2WXt3 YFGinHhnKtBwBXI5AqT8 CCT3oIQgwT2voAun bnkvuA8vVmd+LNP0vVRq zDEXZJ7dVmadoNK+PHRk MFA4xHcmVConEUIozE2r SSXlP1v0CzJiCeO7 QHeeK2NqemW5AJNajHOu PJIxjQDZaF1uhtvkt9bd esyjKaThOBTbJCa1EQg9 LWFsaWduOiBsZWZ0 HtF0OUR6qDRdzS8ntWiz cissbC5hHvv+QmlydGgg NIX1VOd8J0OcKln4ZHZl fJjtMS2rwKZrIYwu Bg6bcJqlsBcdJM0tXMRj nzrjm646SrIkz7cjSBMa pKIlDNllXFS5V00fz8Z4 HNPsDRUbBFT6dBZ6 sH8rgLnmhdugbOLcbPtp ziZzsSniUHrxHPtbH376 VHKguMopMgWqKWi6Z5Vs Zis5QWAwzWhyXO7v kHQqXUgnRj5egQainSbf AL2hZEPvpeoaw231YuXc a9drFQSqvENdNKjsEYE8 K95mh4G5VTIcYBWx KJO2yIC1pG5nqXfqqtwx bGVmdDsgdmVydGljYWwt IBlxE825QWObbNcrEvJe tCw4Y7NhKjj4SAMu nKorXT7ziKUiYZibDn7w iWfezArpNU0iVFHqrojs o119JhWvw7alUWLnbFOt DNqrTPE4O39tc6N9 JHJhRGDbNMY2nES6tA7u bGlnbjogbGVmdDsgdmVy gSngVTonTKqoM436GSJl cDsnPlBhdGllbnQg MCnwLDo7N1PpDgxktJQ+ SL26SKKjCY95lPLzpCIl l7avpBw6CtMhJRZpPEE3 gRsxCOewp1ZqRJRu Y31ehUNsd9O2SASrbOiv cEAuMlJnmWA6yW0kBRnr idveh1pyhnotViqjv7eo ab34bH59L63mHQld ZHRoPSIzMCUiIHZhbGln mn4agD9dAq2+PGNvbCB3 tCJ9iF0fFCSwSzA6GQvi P118OzZvkBPiGfkb f7oub8odmEv7WkY6QBRm ocOktXngVPF8r0LcOz45 P34tJPtoSMJvDMFrLAMz NOGsaCstip9wuL4f Ii8+PCCtaTQ2oEY5vD8v SpCxEoD6WNihG293EjEy dFPtZflyL60wK1FmqDX+ WANaSyj8GLDnlMbd DI0zzLDhYNkdTn7wCZW0 UbPsDhYsXFrpN0ZcYQDl jfpiosxlpPM1JMPzSUEp uV31Db9acZepFFNm mDADoK2latokw9uwqnyx ZmKvYKVlFIf3YIi8FWRk oEijRsOtAEQ1OnL7HYA9 eRQbzI1tjEtildkp dI2sF5HiDOBbaqgaPh47 vI3wDzQyVzX6XVdhXqz+ HvPHFNNtBIHOVj1ZTYYG RTwvdGQ+PHRkIHN0 nKmtFGadPUFjaV9xKWTe J7c0HpOeXpT8QLlrB8Hu EMQvjsmyIl70pG5aIvCo BoR9VGjcA6NugkB5 HLQslXZlSAtaZBT9I35k d3K8PMAdIHFrZRH7pCQ8 tY2mrIqwepkgdXVimFbv dmVydGljYWwtYWxp C589IHFflPerLwRlXkWj GrJ2GbU8D3LcAga6PYFs lVytAO9hoQUhSBruJh3n pXotxBmqGG9hLCMv iyewLMFzuP6tSWCbcMJi aQuxGG7eLHYzqfbzx861 UwYsLMP8ACXufPUfR6Ui vZ0iYzAkEELcLENg W3SlvWLoEEccC954ZVgf BpX5ZTMrvoXfH1ZxRQAx vMxvKaQ5i2G7Xd72QBPC ZWFyczwvdGQ+PHRk QGL0sGojDHmeQHLemA5a UWMjK7z8ZfKqQyW5CZrr J8LhFVTsdmidCl67sK2w NaEcPrA8DYsqQ5Ud qsN7ADStsKVbJOrnSTW4 N53ze5V6HRGlSVNkLNO3 cRB9dH3jrFcthtjdbROb dDsgdmVydGljYWwt YLymF763CFPntAjaUgRD TUFMRTwvdGQ+PHRkIHN0 wGooAVlxSOYqeU9hKJBs Z5h3YfEnAyJ8MGwd D0FpOCSivwuqWc86fW6p JhWvBbI0HYdbJ4NrztK4 ZHNdjBVzCWixGQC7T34q c9K7YVRrNQJyJPB0 uWN9kY3owXtbrgbabRAl dDsgdmVydGljYWwtYWxp N459MJQjuUsyUdTwRQAq NR1xbTfrvDU+PC90 mr58I2FgUopmZzl5LFVz RUG2mNN3lY9cPRVfMXlf m1S7gUA0V0QsspWeei2a a3hnPYMqCFkrD42w cJIkq8V4OPQgsJD8OIRh nNazUcNxtO64Ifi+PGNv sSqdf2DlCwhdy0wtf5mf gIh8MrZdVHEjydKg gDljJSQ0x9SlMu96O09c IHdpZHRoPSIzMCUiIHZh tVohzy7rkQ1vWm6+PGNv pXA8rMU3yE3hFqQj GqH6NAofF647SfKnzXNd Stpqz0dnm2sumJc5FrTn PIEzkvQehCdsGEU4y3Zq Ps48A4ZfpYvvt5Nz Kaz9jf46vVMxx2Y4gOZ6 A4ZyXPDpdtjmnALkuRla LE1vEZEstfryELZomJ8t NHDnF4o5DgOxDiA7 BHgzY8HxrwX1VHKyoSUk VPHrwIGJzT7khgnrs5xv yemlPnGsRIFrXKc6STb1 LWFsaWduOiBsZWZ0 JhP8WAX9xKAccB3wnPxy jiijtM4hMoy+QOa8a8ii lZDdQT0enDM5WF78DO82 uGZyv1N1pFA1N6Ys CFUnlklparzvwYJ6GSMk QZKhjS65Bq8dkHpuQq3y ADFiVHG0OOZaiQQkH9Qy rX6oIzUyXCOxWHMb E8ElhWOlPYsvV651OUlq RcR5BPLzhdJsZ0ZhGFPg oCzdPqK4b1X4Cm6QML19 DX19ZY70dTQvu9M9 vEX6C0ByMQQgmwirrjtf iCE3PUOnXFNraE38Dk8l fFnhLy5cFMEqQMD5LETi hMRxT6InkU8yDvGh WTNzULFvP4QjoLNxUCss I849FVudHlX9RYNudjXz R3YeKDPwiMqiFlY6v2M5 Tf7QAl47FV71QS18 xHPkr5Y8tTD3L4XwDHIu lxyyvgaelWR5WEUwFKCj oM20Mb5hlDdoGx4tKCPc VPK9LLZtwTPtV8Sr uM2fEfGjLBRaFMIjM0No iXNdCYzsS345KXwwCsU0 YDEcmfLbV0OsFQYklNjq QnE1x9E2Wc6RHAmr uaj9G0PjAlcjoJZ+PC90 KKCyFK55kLDadLAfk1dl pRk2YiKsSBJxVJW0uGll CLleb0QxDIWoE13o bGF (more content not included)... [facility] ED Clinical Summaryon 2023 ED Clinical Summary [facility] - Emergency Department [address] [place], [place] [id number] ED Clinical Summary PERSON INFORMATION Name: TOOTIE NICOLE Age: 48 Years Sex: FEMALE : 1975 MRN: Acct#: Visit Reason: Headache - Recurrent; Headache; HEADACHE Arrival: 04/13/2024 22:32:22 Discharge: 04/14/2024 00:21:00 LOS: 000 01:49 Check In: 04/13/2024 22:32:22 Checkout:04/14/2024 00:21:00 Address: [address] [place] [address] PCP: Romeo Chaidez DO PROVIDER INFORMATION Provider Role Assigned Unassigned Jess Waddell LEGAL COUNSEL Nurse 04/13/2024 22:44:17 Tru Matt DO ED [...] Neuralgia Follow-Up: With: Address: When: Romeo Chaidez [address] [place] [address] Business (1) Within 3 to 5 days With: Address: When: Lisa Martínez [address] [place] [address] Business (1) Within 3 to 5 days Comments: home call Dr Martínez's office for a recheck apt one Percocet if needed tomorrow. You are welcomed to return as needed T Verna MATT< ER PHYSICIAN< HB [facility] DIAGNOSIS: Recurrent occipital headache Patient Understands: Yes - Patient/family/careg iver verbalizes understanding of instructions given Comment: [facility] ED Patient Summaryon 024 ED Patient Summary [facility] - Emergency Department [address] [place], [place] [id number] PATIENT DISCHARGE INSTRUCTIONS Patient Information Name: TOOTIE NICOLE Age: 48 Years Date of : 1975 Reason For Visit: Headache - Recurrent; Headache; HEADACHE Arrival Time: 04/13/2024 22:32:22 Primary Care Physician: Romeo Chaidez DO Attending Physician: Tru Matt DO Comment: Visit Diagnosis: Diagnoses This Visit Headache ([id number]) Headache - Recurrent ([id number]) Recurrent occipital headache (R51.9) The Pharmacy at [facility] is open Friday through Friday from 9A [...] alcohol and/or drug addiction problems; contact the [facility] 26/05 Crisis Hotline -Text 4HOPE to [phone]. If you received any narcotics, sedation, or [...] legal documents With: Address: When: Romeo Chaidez [address] [place] [address] Business (1) Within 3 to 5 days With: Address: When: Lisa Martínez [address] [place] [phone] Business (1) Within 3 to 5 days Comments: home call Dr Martínez's office for a recheck apt one Percocet if needed tomorrow. You are welcomed to return as needed T H SHAKA< ER PHYSICIAN< HB [facility] Medication Information: The exam and treatment you received today in the [facility] Emergency Department were for an urgent problem and are not intended as complete care. It is important for you to follow up with a doctor, nurse practitioner, or physician?s assistant editor for ongoing care. If your symptoms become [...] so we can reach you if necessary. [facility] Emergency Department has provided you with a complete list of medications post discharge. Please inform your educational recruiter/provider of your visit and for further instruction [...] Vital S (more content not included)... [facility] ED Note - Physicianon 2023 ED Note [...] been 3 days, she has been taking cqua-cyw-vjpolkh medications at home for this, but did [...] Family/ Social History Medical history: Resolved Migraines ([id number]): Resolved.. Surgical history: Rhinoplasty ([id number]) on 07/10/2016 at 40 Years. DNS (deviated nasal septum) ([id number]) on 07/10/2016 at 40 Years. Nasal polypectomy ([id number]). Appendectomy ([id number]). Hysterectomy ([id number]). Colon ([id number]). Comments: 11/18/2023 21:34 Etc/GMT+5 - Shuff, Patricia [...] everyday tobacco Comment: 11/04 ppd - 09/15/2023 21:Ladarius Doan RN, Anika Stock 11/18/2023 Smoking tobacco use: Current everyday tobacco Number used per day: 1/2 pack daily 01/29/2024 Smoking tobacco use: Current everyday tobacco Number used per day: 1/2 ppd 04/13/2024 Smoking tobacco use: Current everyday tobacco Electronic Cigarette/Vaping 09/03 (more content not included)... [facility] Ambulatory Visit Summaryon 0 02-24-2024 Ambulatory Visit Summary COREY TOOTIE :1975 Visit Date:02/24/2024 Ambulatory Visit Instructions Your [...] AM EDT With: Romeo Chaidez DO Where: [facility] Medicine Patrick [facility] Medicine Office/Clini c Noteon 02-24-2024 Family Medicine [...] of Providers: Neurology - Dr. Lisa Martínez Facilities Maintenance Worker - Dr. Sarah DAVIS Derm - Dr. Blanco Ortho - Dr. Bautista HPI staff / Chief complaint confirmed with patient Screening: Colonoscopy: Cologuard completed 2023; states was negative Mammogram: overdue DEXA: age Pap: HAIR DESIGNER - Dr. Sarah DAVIS Smokers / Former [...] Pablo Vital to learn more about ADHD https://www.[employer]s [employer] Z[employer]s.com/slideshows/a iqf-eyjmkkix-leihw-o ff-our-feet/ F/u every three months [2] Review [...] me Seeing orthopedic surgeon Dr. Langford in [place] MRIs have been ordered by this provider [...] face with (more content not included)... [facility] Comment on above: Result Comment: Elec tronically Signed By: Romeo Chaidez DO.thaddeus\Date and Time Signed: 02/24/24 18:58 EDT Patient [...] primary care provider or a mental health patient care representative. Your health care provider may use a [...] Behavioral management. You may work with a reading coach who is specially trained to help people with ADHD manage and organize activities and function more effectively. Follow these instructions at home: Medicines ? Take ihft-oev-fzklqjz and prescription medicines only as told by [...] Follow th (more content not included)... [facility] Coding Summaryon 02-04-2024 Coding Summary HTMLBase 64 UargyxywETc3xZs+PGhl YWQ+RV0XDZYiC42awMPh dI0jC8AAIZvJFaulSCPI EPsDJhRbzqSjZF5vbPFm ZXJu IC8+IM7tBMJjRousjMGx d1F8aSZ7U65hvd8zHFbn kBX3CPMlZrSedpcwg0af dGk8AChfYcadZvDj UKMpsM22AYC2qR26Iq39 dSOwrTLlx9bszMi3CnDz GYMcYPC3pPzxMFmsw4Mv ZIHsH15ssZYrz9J8 IGNvbGxhcHNlOyBlbXB0 kF7sHBcyeglte1fkmrgj Fdd6fz59eHQgk2H6zDQ4 N0BatxU5KWKrcLMv YnbjbOSRvF6nenpkj9vn egndRwZrFIArOUw9BXe4 UUJdtSgsYqHrZJ34MVW7 JGSbrrPtW6OkJUWl pQvrPhD8o2L3Hh3ZL4OC RpbnR0JFFTWRNSepdTX+ DW57ba95C6RlZcqwDjg9 RZJgLWF9aLJ7nZ2y QVTlUDdbp9E6dOX3A6Nk dwZywv4tz3cnEJRdTDjc Q14kfDOon8E6PEOpvJT0 VTVzvMerKaUysI66 Oyc+ZWPirCiwq6IeFhpd v1rzy6aktDe6VofhNZRv pdGhwCxpOSL5j5FiWm9n SOWilUM9uWX6vX5c ZtFzVrT4GVhuX206WlKj pINbMhkkD20pF4UxqJI+ AOYsEnl4YPDpfEodVK7u H0OyMYRihnfodFLb kAsoKX2rHYVdaurkXNBe sS6cMDQzD8j7SlGvCtP5 QLhtX2XfBXFgyamrXa23 hK7hXjSnYrA8YAte R5FnjgB9LLIgnCGjKLut RDK3N80hb5A3TTXhSNOi MBD6jIA9tH3poGlkcpek bGVmdDsgdmVydGlj QMsnCBccT105FDUdjFif PkNvZGluZyBEYXRlOiAg MDQvMDMvMjAyNDwvdGQ+ MVCqRFQ0eRyqMNWy hGUvCEyeZj9geKrykUhr TI9qIBJjjggkVZGmlD2b KYMvcGDpjYtaIJ5uOEPr fkboz743YmByGAR8 AMGaySDwL1ZmcA6hSlCa GHPgOXWyV9RgwEZgFGmv I637YNcmPwM5YCWcznZo X4EiWMWlxCgbZzE6 f9F6Db9Jm8CrovxvN3Wz vKLmQbHdFfunJOp5J4Gw PjwvdHI+EO30TPVsBU26 JUl0NSF5tLtiOFco OYMfK7XgjP2jGqHhCZGu ZGRkOyc+PHRhYmxlIHdp ZHRoPScxMDAlJyBzdHls LQ4iZe3hOJLvXTBc eBegzDGaHzTfb2idMPJd PAtiSU0mtEgmM2BiuFJ0 DWPdl6g9Cy10J96jJ8Io dXA+GTRhySH8yMX4 hJ9qYjTqExR6JQbgZ655 FxCsiUMrCflln4oim1dx zCt2HyM9QGWerxSgrRay JEL1z0CqSf89J13l IHdpZHRoPSIxNSUiIHZh nWzzdh9huO3lJt0+PGNv aEA0cVJ5yD8nDvYsVcV3 LGtjL785TqKtgETh Dvuxx1kmc8xscLl7BdAt HMHijaRfvOhsQJN5p4Wg Ki89Y6BwfTvlb9NyUfx8 is00fIFtm5U7hFW6 D6ToOYPvccezdJTfqKfd KZ8mPANqyqufOVYcrH5g HYHnP0c6NbJrVkW6VXhq T5XmvfD8FCUnyELo NYBkbEJCbX5pbudvf3xf ypciYjInJSRvNFm2DPa2 CWJhfHcaJgJwLHL6MgW2 OEJ9bMTsmC6fqIfn soovnD0eSdm+BTC3pICq rQCFYM6wZwbsvOX+PHRk BAY9gMskIXikNQAanY3o KEOwF8a1PzSiTbF3 RIraX4ZvfyF3PVQjlGPt ZMDbeWSXpV1flxhvz4ru shcdUhXyAWIuMCz4UCy8 LWFsaWduOiBsZWZ0 TbF4PZW0gYJdwO9ysGfs nbspfF5fLsn+QmlydGgg PQA6BJr5P1HsYjl3XVAh qKqgRA2myETwCOuc Sh1sdCyfyDgoIS9vLOQb typxi172QsWmy1vsUDHh uTOeQImxBDA8W98no1M9 GEDjIHBtOPJ0gPS5 yM7tzHmatamdbTNsoYhb vzImyRvbZIteFYxvO532 ZAWxeNrwQyHiQPz6O1Mv Uju5TJFbbGzdPG6w qQVuYRaiCv8awUzcxNpo ZS6sRNKudhrmz933QrGn d5qsTJNgtHLqLDgzHCA7 Q24wz3K0AERzSKUr OQW7kDD9vP0yiNpghuls bGVmdDsgdmVydGljYWwt AAamB133BWCgjFwiOcLb cZz0G2QrFgx3GDJd iHxeAO7ztSQgWIfoJn4q bKufnPszQJ3bIGQzshrr k098IeDfr3keKAGtgJWs WOucHFU8D42cy2K0 BHFmZZSxGLQ1oRR1yY0u bGlnbjogbGVmdDsgdmVy wLwrEDsnYAoxR222STRs cDsnPlBhdGllbnQg PBnuWGx8F1IjXhbyiUV+ IT76KDShSQ43sQHkvLGt w9wchRy5SoCmMBTbVWG8 yAnqAIeii9PaDAHk C58kbJHzw5I7HFSvuMrx qJKjRkLgtXA1cM3pAWhq jljvj9xmmbgsPvrcp2ng fo99iX67F22mDZka ZHRoPSIzMCUiIHZhbGln cm0tmS3kDh1+PGNvbCB3 kRF2xB3pVWVuDiE9DCmu U285UmXsjNGpNbtv f4wfx1xktEf4HrJ7HIKe hwYllFxeNZN5g8KvWz29 F80sQIxaZUFcSIGxTDHq HOKwtLsity3zjY6q Ii8+ZGNtiKU6qNK4xY9a SlLtGaF5ITpnB866EwZl lPPiCsafT14cZ4RgmAW+ ADHxWno0GWRrnAle XK3ulOItACawGp6cBPO7 BiYoQmIiNLscF6BiVDAl wscmwonfaFH2XCCaCCLr pW52Ne1lhAbpROZu wARGxW4aoioak5xqappf FeLeHKOvGCg6HSd7RCOo nAbfTtYuKUZ7KxP2MDT3 cRIlsI2bhUidqsak yE1hM5PiCWRabgglWm51 zP7rNtQnZjZ4NWngHux+ NgYXNKHxIOPNKf2KXKLV RTwvdGQ+PHRkIHN0 jVbiIXvfROCzhG0jLOTf S5z2GhDiYlS7AGkaW3Os ICCebuegEw75kG8rZtMx QpI2EXvpW8AvakL5 VVOtsUNuHMsyXPG7W50n x2Y2ASEfOHGcYSG5oVJ4 vK3jeQqneybwoBZgoVyb dmVydGljYWwtYWxp D699WSZorNtpAsOmPdGz CwG4RiQ0D1XmIpm1XHVp bBwxPH9haRNcMVguYt6q bZuzkWngEQ3zIYGy cuctEPJncJ8qQYJeuJNp tZgeHP1vUMUacjgkh408 CuWzPUE1ZHFxyEJqK5Vr iH0uTxTbKMGhWQHe V8ZsaLLuELdbI877PGzm UmY0PLEexcXrU2WlEOZz vRrwAiR2p5S3Lb77HQKN ZWFyczwvdGQ+PHRk YDQ9bAebDQkzLULvvL0r OHHbU7c7PaHoGkJ3ORuc A3AgJVUsrkdoLv31nP8y QxRoSmV1XYcgD7Nn ruI1SHSbkGUbWZhtHIB7 N67qb5Y4FNRoYFTnCHS9 jZX5nQ4waPhcjjipfEWu dDsgdmVydGljYWwt LSpmW173VMJtdDtaJiIO TUFMRTwvdGQ+PHRkIHN0 wUkcPSvnLFFxmW0wWZQc H5g8UaHiCaJ8DEys W9OrJECkymgyYt19fM3v PvOmXnD4WEjzW5VkhkT1 GUYcrRIyXFfbCWB7P68g q0O6OVSkXTWkUPM0 wHP8qT1wfWtoqorsvFNi dDsgdmVydGljYWwtYWxp N056BZWlhTscHeGuVWLr CL7axSyqnQP+PC90 mj84G5MhKfacPvf1NNBh HHW7kMQ4lA6gMVOqGQel c9H7kMN3W0AhsdYpyp6l f1hbLJOaOGhsE64u vBNdb0U3IQZkcCZ7SBSl nRgjOiKspO86Ftt+PGNv vZwxu3VoDxpts8uwl4ex jXr3GkDuWHBijaSv aQovMGU4g4XpSd06B54o IHdpZHRoPSIzMCUiIHZh oKrpak0feJ3zSf7+PGNv rNQ6oDC1wT6rKxMm HyV2XEzgR014KzXuaJPw Gkwtq4fdl5fpzTb6LqIf NLMrgyMbcAhjNRW5i0Qk Ob32U7QvyAjys5Kt Toj0nf10oQOxa9A3wUO5 R8XpUYZpnmlypHRsuIok CL4hKDGilzxcMTCvxI8r CYZwW2i5GdQfMhR6 VWlrO6KrhxI1RXMeeOHu XTOqnSYIaU0sqycrt1bf pkqaAxKvVAJtYXg2MJb5 LWFsaWduOiBsZWZ0 JxY8CYU5rRNreV9qaUex claueR4nUzi+IAy7w2nv mUCbXP0ugRL0GN14LS88 uNEmc0C5mTA0W3Xp ESRqeiebtgjtgAP7FAUc BUEjwB63Ko4vnNjfIx1i NEMfFPX8LXApcKUcT3Ce hP3fQmIxDSUrFSWk U9FybBRlRXuvE062FIor EwO1OAQzeeTlT2FeJVRv bGjmJdI9r6T3Vd7LXQ70 OG03TA81rQDln7G7 mVM4R3JgSQPdmbpcvrju kDD7YOJwXDZoeX15Rx8x hVpbUm1iCBHgFUJ7VVZp xBXjE5RnvM6kUsAd BCNnKBUzY4OgdSJjZAqm N153PPffVqP8SDGdiiAj Q2DpQKGssJgxWbY2s7P6 Hn2NLi38NQ05MD69 nFLkd5F8xAQ3N8FoZNZn rqzweokobJS4EDYmUHKa xG26Al7meEwnFr8wCLJa JES5PEIxuRByK3Ir aG7wPhVvWBKsMPOeC7Hr vSLbGCbaC532XPzbAbM2 XSBixmMsF2ShIVDrdBzg BaJ1l9U5Ia2MWJqq pge5S3XuAnbopAH+PC90 VPKtYC21qVXzjXYqp7ir tPf9DfBvWDMgGSN0tDaf LBosw6MyDVMmB98j bGF (more content not included)... [facility] CNOVon 02-03-2024 OV Office Visit (PLASMN) TOOTIE NICOLE ([id number]) 1975 F Date Time Provider Department 4/2/24 4:15 PM REMIGIO TRUJILLO During your visit today, we recorded the following information about you: Shawanda Jordan APRN.LAURIE 02/03/2024 4:47 PM Signed Date: 02/02/2024 PROCEDURE: [...] reflects their service. Scribed by Shawanda Jordan APRN.Remigio Mason MD 02/03/2024 4:47 PM Signed [facility] STAFF PHYSICIAN NOTE OF PERSONAL INVOLVEMENT IN CARE I have reviewed the progress note obtained and documented by the physician assistant editor/registered nurse/fellow, and I personally participated in the [...] Status:Closed by REMIGIO TRUJILLO on 02/03/24 [facility] Lab Reportson 02-03-2024 Lab Reports [id number] #1.00TIFF [facility] Consultation Noteon 01-30-20 Consultation Note [id number] #1.00TIFF [facility] ED Clinical Summaryon 2023 ED Clinical Summary [facility] Emergency Department [address] [place] [address] ED Clinical Summary PERSON INFORMATION Name: TOOTIE NICOLE Age: 48 Years Sex: FEMALE : 1975 MRN: Acct#: Visit Reason: Nausea; Headache; HEADACHE Arrival: 01/29/2024 19:18:03 Discharge: 01/29/2024 21:08:00 LOS: 000 01:50 Check In: 01/29/2024 19:18:03 Checkout:01/29/2024 21:08:00 Address: [address] [place] [address] PCP: Romeo Chaidez DO PROVIDER INFORMATION Provider [...] Home PATIENT EDUCATION INFORMATION Instructions: Hypertension, Adult, Fwoi-ln-Nqco; Migraine Headache, Nywy-sx-Eiyf Follow-Up: With: Address: When: [place] [address] [place] [address] Within 3 to 5 days DIAGNOSIS: 1:Migraine; 2:Elevated blood pressure reading Patient Understands: Yes - Patient/family/careg iver verbalizes understanding of instructions given Comment: [facility] ED Note-Nursingon 01-29-2024 ED Note-Nursing Patient's male visitor came to desk and advised the patient reports the medications given are not working. Dr. Varner notified. [facility] ED Patient Summaryon 024 ED Patient Summary [facility] - Emergency Department [address] [place] [id number] PATIENT DISCHARGE INSTRUCTIONS Patient Information Name: TOOTIE NICOLE Age: 48 Years Date of : 1975 Reason For Visit: Nausea; Headache; HEADACHE Arrival Time: 01/29/2024 19:18:03 Primary Care Physician: Romeo Chaidez DO Attending Physician: Bin Bello MD Comment: Visit Diagnosis: Diagnoses This Visit Elevated blood pressure reading (R03.0) Headache (28809014) Migraine (G43.909) Nausea ([id number]) The Pharmacy at [facility] is open Friday through Friday from 9A [...] alcohol and/or drug addiction problems; contact the Mental Health & Recovery [facility] 26/05 Crisis Hotline -Text [id number] lb [phone]. If you received any narcotics, sedation, or [...] documents With: Address: When: [place] [address] [place] [address] Within 3 to 5 days Medication Information: The exam and treatment you received today in the [facility] Emergency Department were for an urgent problem and are not intended as complete care. It is important for you to follow up with a doctor, nurse practitioner, or physician?s assistant editor for ongoing care. If your symptoms become [...] so we can reach you if necessary. [facility] Emergency Department has provided you with a complete list of medications post discharge. Please inform your educational recruiter/provider of your visit and for further instruction [...] migrainosus Migraine M (more content not included)... [facility] Coding Summaryon 12-30-2023 Coding Summary HTMLBase 64 BvbfptjwGDu3oXo+PGhl YWQ+UO6RILLzU70seGIt yU7fR3KFEUeBSbcoRHYI FNpPGqAzilUvCI1etRUm ZXJu IC8+TZ6fVURyCqgtgYTf u5S6xLU9D58umh5sQIvk lPI2RQSwElTxegxsm7mv gDv8PRhiKaglSkQe PUAruV86CVA3bU93If85 dNEpnBWhs4iuxQb6MeNy CTMbHRL9zNqpTGgvp4Xh QXOzT03umQJnh2F3 IGNvbGxhcHNlOyBlbXB0 uW8aPFwqosqyo3xucjdo Fot6hl15tKLjq0T6iVJ5 W9VuwoM2CHVckTXw NnwuwPLIfF2fgaqhc8ug xnnlOgCaJQDmXCt9SAe6 TYVrvBqjXnPxSX82WAW4 UZWzldBwU5ZlSLRf rMjcZaD1i9F3Kf1TC0SJ JbkmD6CSECKRGEzcePE+ GT33fq68U6ZySvuoSqr0 LNZfLLZ6iRT4sZ7e NMBpCNmfm8U8kSK6S4Sm vjVium1ss5vlFMEoSAkj A17tqCXcy7S7YKJleBA3 VVPudQjcCgEapW74 Oyc+WUHeiKpts3KvBkzl d3zko7jdwEz7XtqpMROs njMwoOoiKZV3i7TgTn5k PRKrxNP4eDU0iL9t VbPfKeN7QQuyU807MlTo mDTmWcodD83fG7JikGU+ RLIaMci2NBVbzWruUD6n P1PhAVHytnsxxYZt nWlgEI3xQWHatnrbGTKl rT2pKGDeC6v1TpRbShD6 RZtaG7QeVPMwgmclFe19 vO1iFbYmJfR1ETbb K1ObkyO2YQJezCXrEGqa ZKX5M97zd2L1QKXzZGNi YTA3tYA8tG5dlQwitgol bGVmdDsgdmVydGlj XKvrPSzaD063XZCpiYat PkNvZGluZyBEYXRlOiAg MDIvMjcvMjAyNDwvdGQ+ JCYqTXI7vXykWHNq zEPlURnyHk7jmAhbvQks PU0vKRGypdsvAHCmkN6r HHSeoRRqqOekMP0uCCPa nabvb345GzXyOTC5 FLFceVSyD1QwlU1wNiFn WHVgTQYmM0SbdVGiYWvl H710DEndAbO9GBGhfxFu S4NcFVSxfObjBkM9 e3C8Fi3Lu8DcwvfaT1Kn jLMrOxTfFuckMBt5L8Em PjwvdHI+ND40KLSdTY86 ISd5DSJ5xUjvFUpo SCPjL1JxeL5qYcTiNXDz ZGRkOyc+PHRhYmxlIHdp ZHRoPScxMDAlJyBzdHls EO3cPd2yVDTvDFRt yRebsAFcRsHnx2yvZCCn YZlgIC9ngYobL3AnsJG6 TTMya8l3Ue54B73aX9Rn dXA+VGGliVE0vOD0 dA2xFoZzDwC4OVxpE640 ErPytGRtVborr8gtt7xb pLf2NpA5NNRexdLstXxc HDS6v9IvDa84I89o IHdpZHRoPSIxNSUiIHZh jLbgqq0mfO6pDu5+PGNv oPJ4pPC7dG8nMpIcOyP0 CSmtL785OdDtzXBg Lrorb6oik5vqtVa4UlSz ZNZjadSzkIlhQFA8x8Rd Yv53E8NilRuak3JsTds3 yd36hVSlh2Y6rEA9 F8MbXUZgpijgdSSygZbj CX7cVBJsnicuYGEuzZ4l XRKoG8v7YkXjPdV0TXxa B2DrfdL2STUopUSh INFkcSSCoQ3mdnfml8rc tnhqKaDlQOMtVFe4EZj4 IHAtyEbnXwBxLAO7NtQ6 PIA6yVZkzE0ncNri uvxfnF4vAra+YCC1rRVf gWVQYO2lQwhscTD+PHRk KMM0cUwhKKgfTXWtqB0q SJUxJ8h4GdTqCaX5 KZneK3RxrnH1LKGwwIWj OEAsoSITjU0worfpp2db wsnfMwCiSQZpUDj1FZm7 LWFsaWduOiBsZWZ0 AqF1RMI3uWVqhS7xjPto savfzM6nYmx+QmlydGgg UNU3FZs8Q8ZvGly2SSRg mPimIO4zmNCtCXow Wp6wbUfcbBpbPX6tRJHy ufywv755NxMjt5ukQHLi wKVvSCrqIDB7Y60bs9W4 NTWwGCSkACX9iLT5 yW5zhApkhtkfzHSjkWna wkYmvJqaGYcfVNpbQ957 KNYdvVljSzZxPGw2D8Wy Mmp4KXZagNkoFW4y xDIhDYarFn1riYgjkHce CY2kZQKyiubvm807LzKu n1ujAHMqsTUrXAxlOBU6 Y01yp7M8KTCvTOHl AJS2rJQ7vW3ghHbsqxlw bGVmdDsgdmVydGljYWwt MJkaA706KNKunUrxFcZt qJe8D4LmOjn4MGWq kLjpQT4lpJXqNOlqIz8c xSxugXhgXF6lWXSyqfla e551PfMfl3thBTYhbMLj SEqdTWK3N30ht0L1 JIWiAAZiXOB3xCQ1fJ8s bGlnbjogbGVmdDsgdmVy dEyxDIaqIJuuN160QMEf cDsnPlBhdGllbnQg NOmjOFd5Y0QhLhuxyHC+ CR06BHVzNA42kMUuiYEh v4aooKg1OsBkHYHaLYB1 hVccBKabl4JyWVOc N11olIOoe9Z5NKQeeWnl jJFxTvOdbLQ5zO3rRMsg ikwdz3sscpumWyteg5fj kh70xI88F84wPJaw ZHRoPSIzMCUiIHZhbGln qy9tqS1jCx8+PGNvbCB3 pWA9sP8fQPDgEkW9MXtz N807SwUwlSGfWqqp w4jrr6dvcJx4PnP9EYEz tsOddBesDXI6e0WlMt39 S68hACoeACIxOBPuKDLj HLFfaLavwv5diI3n Ii8+ARBdwJC8kZJ8iN8z MqDkRbT5YMlgI246AyJg nMXcGgkxS32lA4XkaTR+ ABFvUne8OOVuyAib XV6ciVIgRNlmKo6eKHI6 LkLqWtHeVSsgF6XfUZMu grldgijqpKA7SWEqPRZi bH09Ko6keNtvTBAl gDYHwV8nvkqox8ajhckx DhImKHEpBNv8JNl7MLXk mPmjDmMoZLE4NiG7CUD2 pJRxgA1zkUxjouyh gR9sN2NcWUQjesbsAm97 vG3kWhPqYeK5CBreOzt+ EbYVTBEpYQVAJh0LFLKT RTwvdGQ+PHRkIHN0 tHmbGSmgZRYezM3zGASl P9u7UiXqFvZ2IImeO9Qs NFHlwnguBc58kE9yCdMo CxA2ICddX9CcgpZ4 KLOhsRDiPWkoNMY2B32q b6P7RTBmYSGmHCJ8tIV4 mF8flOonjnxrtLNnhJfs dmVydGljYWwtYWxp H333PPRruGcuVuNlEaXj ImW6BbW4X4XgQyt8SXEg tXlaXI6cxUYkFHidAz5x oSvfhQauQG0oJLGu shkzELRyjO4lJFEyePZu hFhgWE0kRURpsorsr808 MpVlSKU9KJSzsHMoI0Ls sZ3jIpSpOBXnSDYt A2KpuTQbAEvaW843EZqk OuT1JBNwhzSbH4RzMEAo eDczRsI2z8N4Ck05YHAJ ZWFyczwvdGQ+PHRk PLZ9iSiwCUjbIZIzuF6r UGBtK8m2UtOfAhU5RFyp T9YrVHYaqbxiRq16uK7i EoVqDrI5TPtqF0Ey kvQ5NEWjnUNjJDrzZPD7 P71rs8Y1AVDdKNPfJFK6 ePI5cM4rfQvkuibunWOo dDsgdmVydGljYWwt WBmtH803UZAviIloHsTB TUFMRTwvdGQ+PHRkIHN0 oYguUNstAFReiA6tZPMw X3f8FzKtTsD8IIhk D2PhCVKolwdvGm79uN5f KlAzIgG8PCjdV2VqkmZ7 YUWcaBBcGVgmKSF4E52e o7V9DUMaLKWuNTA6 uBW7oW7elUryiiorfLZv dDsgdmVydGljYWwtYWxp B677GLUaxFtoHiMlUPPs DK3lrYveiTA+PC90 xu79W8NdTnjrVig8RPUe DZO0xWY4uJ3iLJCiATej e8C6eMD9L5SuxaOxlf3r v3epECUpCZfgM62p dQAkz4J7MGOfeIA4IGGi nSygCsZfxC66Fdf+PGNv bLdtl5ApZkorx4yqa5uq aVd7DzKwYAPovsDj bGifWOK0v0PyXu05F62x IHdpZHRoPSIzMCUiIHZh cDxksq0qoP9gLv3+PGNv uIW2lNM2yH3sJlVb EaZ2CMonG018UkDaiCJh Dxeku9gva2fqkWi3AoHf ZMZbvmWshXwdOGJ6o0Cn Bs36U1DzeDipx2Vw Chm6wd06eXOke9H6sCI5 O3EaXXXfphmphADjmCmy FQ5sSHXcuofrPLIaaS3h XWAyS2h5LuXzCxW0 YTqeD5MzmbB6DQBjkRVp CTZekBBYqK0vpropl8yn neclChFwNJPuPFh6ECj5 LWFsaWduOiBsZWZ0 ZgM3DLN2ySOizN0feKjp oxsqfL2lTwy+QRw1f4dl oPWqSO6dfRG8WL59QY63 lEOqr9Z7bHI3N6He TVCuzwchlhumvEQ1EMUw TCEvtI14Mm3yuEyyAj8c ZUFsZGR4KJIxmSVvY1Jh kM6vRjLeBOYpXZAq W7PycVYoZVatB599JLkt QcT1QKSygwYoJ0UbODKv eCgvFhR1m2I8Gx5QOZ40 OD67KZ42qVSts0H4 wMR3N9LrTGHqxdrgscdn dPM9SERqPOCnpS29Et4b nDpxEx0rGVQfFYA0YXTt yEMdZ7NjsJ4fLcJz YWTqXMHwB9VlyNJhOVpz W047JKdvWlU9UFGfraTe D4LpPOWvfBnaEaK9g4I6 Ev5HZb24MP53NF81 kOPvc3O3jLG1O3TfZNUh kcxnxtmzpDN6FLBwTTWb gH11Td9tqVuhFi7lTPTe ZVN0LMBkpAEoR2Ty qQ4gVpRmYAHjQLXjX2Pu zQOfSPfaA810NXtcFtY6 WKFobwSwP2TsSJFhvSee WbQ1a3A2Ty1IHOnj pih3F8RrCdjksFA+PC90 NJVhKI42qSPfwFQbc0mg zQw9XrZaAQHbZHJ3oLkv MNdgs9KeCDTzJ43w bGF (more content not included)... Normal [facility] ED Clinical Summaryon 2023 ED Clinical Summary [facility] - Emergency Department [address] [place] [id number] ED Clinical Summary PERSON INFORMATION Name: TOOTIE NICOLE Age: 48 Years Sex: FEMALE : 1975 MRN: Acct#: Visit Reason: Headache; Headache - Recurrent; MIGRAINE Arrival: 2023 01:57:25 Discharge: 2023 04:06:00 LOS: 000 02:09 Check In: 2023 01:57:25 Checkout:2023 04:06:00 Address: [address] [place] [address] PCP: Romeo Chaidez DO PROVIDER INFORMATION Provider Role Assigned Unassigned Tru Matt DO ED Provider 2023 01:58:43 Manjula Jo LEGAL COUNSEL Nurse 2023 02:02:36 VITALS INFORMATION Vital Sign [...] Home PATIENT EDUCATION INFORMATION Instructions: Migraine Headache, Zyqk-sv-Kcyb Follow-Up: With: Address: When: Romeo Chaidez [address] [place] [address] Business (1) Within 3 to 5 days With: Address: When: Lisa Martínez [address] [place] [address] Business (1) In 1 day 12/26/2023 Comments: home call Dr Martínez's office in the am, for a recheck apt Prescription for ketorolac 10 mg You are welcomed to return as needed. T Verna MATT< ER PHYSICIAN< Verna Cornelius DIAGNOSIS: Recurrent headache Patient Understands: Yes - Patient/family/careg iver verbalizes understanding of instructions given Comment: [facility] ED Note - Physicianon 2023 ED [...] Family/ Social History Medical history: Resolved Migraines ([id number]): Resolved.. Surgical history: Rhinoplasty ([id number]) on 07/10/2016 at 40 Years. DNS (deviated nasal septum) ([id number]) on 07/10/2016 at 40 Years. Nasal polypectomy ([id number]). Appendectomy ([id number]). Hysterectomy ([id number]). Colon ([id number]). Comments: 11/18/2023 21:34 Etc/GMT+5 - ShuffPatricia RN [...] Comment: 11/04 ppd - 09/15/2023 21:47 - Ce Doan RN (more content not included)... Normal [facility] ED Patient Summaryon 024 ED Patient Summary [facility] - Emergency Department [address] [place] [address] PATIENT DISCHARGE INSTRUCTIONS Patient Information Name: TOOTIE NICOLE Age: 48 Years Date of : 1975 Reason For Visit: Headache; Headache - Recurrent; MIGRAINE Arrival Time: 2023 01:57:25 Primary Care Physician: Romeo Chaidez DO Attending Physician: Tru Matt DO Comment: Visit Diagnosis: Diagnoses This Visit Headache ([id number]) Headache - Recurrent ([id number]) Recurrent headache (R51.9) The Pharmacy at [facility] is open Friday through Friday from 9A [...] alcohol and/or drug addiction problems; contact the [facility] 26/05 Crisis Hotline -Text 3PRYI to [phone]. If you received any narcotics, sedation, or [...] legal documents With: Address: When: Romeo Chaidez [address] [place] [address] Business (1) Within 3 to 5 days With: Address: When: Lisa Martínez [address] [place] [address] Business (1) In 1 day 12/26/2023 Comments: home call Dr Martínez's office in the am, for a recheck apt Prescription for ketorolac 10 mg You are welcomed to return as needed. Sanjay MATT< ER PHYSICIAN< H B [facility] Medication Information: The exam and treatment you received today in the [facility] Emergency Department were for an urgent problem and are not intended as complete care. It is important for you to follow up with a doctor, nurse practitioner, or physician?s assistant editor for ongoing care. If your symptoms become [...] so we can reach you if necessary. [facility] Emergency Department has provided you with a complete list of medications post discharge. Please inform your educational recruiter/provider of your visit and for further instruction on these medications. Any specific questions regarding your chronic medications and dosages should be discussed with your primary care physician(s) and/or pharmacist. Medications That Were Updated - Follow Below Instructions [id number], [address] [place] [address] [phone], [phone] Updated: ketorolac (ketorolac 10 mg oral tablet) [...] Drug traMADol Secure, (more content not included)... [facility] Ambulatory Visit Summaryon 0 12-23-2023 Ambulatory Visit Summary TOOTIE NICOLE :1975 Visit Date:12/23/2023 Ambulatory Visit Instructions Your [...] PM EDT With: Romeo Chaidez DO Where: [facility] Family Medicine [facility] Office/Clini c Noteon 12-23-2023 Family Medicine [...] screening: overdue; gets this done at the [facility] Pap smear: Facilities Maintenance Worker - Dr. Sarah DAVIS Labs: September 2023 Smokers: Low dose lung CT: List of Providers: Neurology - Dr. Lisa Martínez Facilities Maintenance Worker - Dr. Hicks - SUSAN Derm - Dr. Blanco HPI staff / Chief Complaint confirmed with [...] documenting in our EMR* From last note: 07/23/2023-neurology- Lisa Martínez Chronic migraines Noted to [...] Initial De (more content not included)... Normal [facility] Comment on above: Result Comment: Rena norton Signed By: Romeo Chaidez DO\Date and Time Signed: 12/23/23 20:55 EST Patient [...] primary care provider or a mental health patient care representative. Your health care provider may use a [...] Behavioral management. You may work with a reading coach who is specially trained to help people with ADHD manage and organize activities and function more effectively. Follow these instructions at home: Medicines ? Take whcp-yoq-mocifqb and prescription medicines only as told by [...] th (more content not included)... Normal [facility] Coding Summaryon 12-03-2023 Coding Summary HTMLBase 64 GpjdklhpZBk0xCc+PGhl YWQ+XZ2YHQFdH82gdGKp pU4sA2EXREzPUeplVSAX HLwIFuQuciTqFV1ikUXk ZXJu IC8+IK9zTLPrXzbizMQs y1T5qIE7B99jzk9bRUxz pGH9AWOiXiXgulmnh7qb eUl0EXrnIwikGoNf XIWzgR19ABE8jY40Rf54 gCQygIFgv1masAm0QnRo ZWWtIIA5eUdcSNfiy1Xn JLVhM97iuFGte6B8 IGNvbGxhcHNlOyBlbXB0 yV2pPZzrajnsk7islljg Oum6mj89jVGxh0Q8sIT5 L3NdbmZ4DEIzqKTt XzqrdOQWtG3zbtkiu3ys qvcpEfQhDRJqRWr7TAk8 RWNabWrkDzPeDB26QFU7 EFAwqdLrF1RrGRKp uSntSeT1l7J6Di4HG1MR WytvB0AIAYJIXLpekSC+ VV60cd53H3IuIuvkEka4 PDPiFTO0uJM3fE9t FPVjOBxyx7I3iSY2T8Bv jnYtrl4za9wlBNPmTStt W12weIXmt7T9SPRqzTU3 GUOqzYgtHyCslN87 Oyc+VACqrAjpw2SsOipk z7bgf8duoOs3PglcKIEm ztWgaKuxPDN3z9IdWw9f WXCdyGF2bBX2xN8l OsNrFlI3NXtrD696AlBj yYBtZvkiL50hT3YdoGR+ BHAuZsz6UUCnjIiaOC8f K5ZkKEZxgtiqaPHq eWmqZV5hQGJbuuvlEBQz qI5wJRMdA8h4UaKlNxP5 VOmnN4NmNLJrrqdhNw31 gT2vBjPyXeM8FYcd D1JucnI3WYZghZEcVCqt LWM7W68cv2H8WFUwODRk HYY9mWJ1xC5tdYukdizz bGVmdDsgdmVydGlj OVphHNkoA915BERfaPui PkNvZGluZyBEYXRlOiAg MDEvMzEvMjAyNDwvdGQ+ DTImFWF3qBqqFBDx xESoPZjaCi0qhRbxjVch VX2xPSUysfawGBSqiO7p HUYgnOHulZihVK5rZJPj ynjkr451LyUzSBS4 ZFIisTQmT3TitQ7lLqLd SSEmRNFrI1GexDEoPIjm U277GMdaBlI3GEUoxcCi C9StAANgoKdeUeL1 n9H8De4Fc1HxfxenC7Ij hQMnLiEbChywUVi7X8Kw PjwvdHI+DQ25JXKnBB64 KZa9OHE7nHnlRZko WFDtM7IquE1yVmIpEGTl ZGRkOyc+PHRhYmxlIHdp ZHRoPScxMDAlJyBzdHls EH6zKh5kVKZlJXBw eBjiqWEiBpHzs7ldJWJk MEzqRN4wwMeoY0EojXB9 YNTna9s0It65N93kG4Lx dXA+YIXuvLU5aNO7 wH2uEkVjByN3EHuwM110 VoRteLJjWbitr3kbf0kl sUk4BxB8CFTailGodHiw MYT9l0KwUg51S96l IHdpZHRoPSIxNSUiIHZh wTgywu2huO2cNl8+PGNv kXN4gVV5mS0sJtUwIxZ8 LZrpK299OmQzsKFo Wokfz4bvo4djkSl4LfSl SEAcqaSozPciXFV3v4Ha Qo60Z5QfmHrcm9ZoJci4 dl57aWMof7O7cTU9 Y3GfUBSamwwdmJDgyRtz PN9zSGJfzcziJZXumF4y CPCvO2m9YcLjCrT6PFrr V7WzdoY6KXHavINk FQInfTQGaR9zxjggg0qt wzemOcWsAGUvMEu1XNg0 VGFygQhkDbKwXPL5AyC7 LVC6nGTkeZ0jzRth ktcxbE7fJlo+WSV2sYMm tAEMUE0uOgkuhVT+PHRk JFC1fSyeOHorBYMqdS7y GUDqM2t9QmAxZwD8 TSrxQ1MzrnN2GBWdjEWh SKOkrTTUnL4lgsjgi1jo hcfzEgUpTETwAJw9JTp6 LWFsaWduOiBsZWZ0 YbS1UPM5dVSfpL6dxPpm jikpvK8cEku+QmlydGgg WUL1EQy2W6StCqr4NAPr zXiqED7luRBxKDre Ko4kpEyprYqwSF7fAPEn rntgr984IcWof3psSLDa pUMvWGvkGMA2H50yk1H7 BLIeLLRyTPX7hTO4 qN6jrVzptdptvIVmlNbg zjVlkOvdPMzjYYxmL901 LRJxtEtsMiYuMLk0Z3Ma Ber5GVXbfGeqFB0l qAYwVAqvRu7twZpzpIhw HQ8bFWDbvpxol396ToDr p5gpCNGqeKIgMRzdLXA3 Q17qs5V6LTJwDTAg ETQ7tXG6dH5kcFeluzic bGVmdDsgdmVydGljYWwt NBorQ082UVTplFamGxHn iWn3O7ErOwg5ZSYq fExdAR8mmBVoODthEy6h jJdrpEmdTS3oIBBzdsca b170TjAls3xlIUGajKUv ONlfTIW0R40yw0R6 MWYuDLOmHDP3eFU5sK7t bGlnbjogbGVmdDsgdmVy jIdaRJwfSRawX420ARTy cDsnPlBhdGllbnQg DFcnWTb6V1SgIxuyvVJ+ DY06MZMvZX50nCPevBLl w8ukuPe1QgDbNFPvCKJ9 iMprWTxdk2UjJUYk O12umLMin2F1ZXTxyPyk wIEzWbDgoHP2sH7iGGef pgrcy5gmzidkWihfl4gr nl48aT52L96aWAzt ZHRoPSIzMCUiIHZhbGln rq0ulN2qHn8+PGNvbCB3 aYD6cA0kRXMxSaM1GOir P140MgMlfHFmBvvk x5dfl3inkLn6FbC9KYQv zpFggQneZJO0d1AoZg57 J42iAAoeXOEgVEKvVGWv UYUksAotov0bsZ8x Ii8+RJWsuVV2jCK4jA2n VkKtUeU2OClhK449NrBj dDZkDxtzZ05nO1EmpRC+ MMLjNkn1HVZiuHsc YQ4paLPsTLxeKn0aDNS0 NgBlQiAjFAbbD7UhKQLm qrpnpirdgRB2KZEyFUBd bN92Qu8elCyfKYNz vZSYlT7vwyuqp9ymstut MoVmKBZzLWa0VEo5ICKk oZnqVcUoXTA6TjN7COC7 qOLimY8bdZvptikb wY5zA5RsCZRtoloqJe03 oM6qHzBdMfR7NLfmDxj+ BuGPUVCjHHRDLw9IJXZL RTwvdGQ+PHRkIHN0 kDddWXijRSNiaT4hZYXf Z3w7ZmWsNyO6SQbwI3Vd IULyqgazSk47dN8oUkDq WcS2REelO7NtbnD3 SJNzyCEuDFmvKQJ3X65y j4V1ZROuSWNfZSL6bOS6 gH5zkVlddesedWFsqDax dmVydGljYWwtYWxp O558IMSdcMvbMhTrHdMn KeY0YpF0G3FdPxh4NUYm oRlmUU1vlVFhRRiwKj2l kQtbeCevDU7cOHBe whqcQCUydL7xHMYtlTTp sBuaCD3fINXyynhvg466 ZgMqXRS3QQPqbCQzD3Ub pV5iTcGrDRVuAQEq V8SomAAzYLfbW477ULip KtL3INTvedTzU0EoLZWe qVnoCxL5g2S3Pj85FWKR ZWFyczwvdGQ+PHRk MVB0wSolNDmlLWRooE2n NISzN0m0DgBuMhX8LEqf Y2FbGIUxamxwPc07rP7g TcJaXpG3TFvfV7No klP8FIBayYBfICivFXZ0 R88po0Z4SLZfJPGyWLU2 lZC7pB0nsTodezabzIJl dDsgdmVydGljYWwt FKgjH478TGQqcZhgWcPR TUFMRTwvdGQ+PHRkIHN0 gWtzRXycHUPmmX7dHUVm I1d5OkIhGrH2MCpn C4GbWEMifmikHa87mP3m QjPdKeX1UHvlA5KmtrZ1 FYVdsWUgUJohRGR4C48b w7Q2PQYgVEZqFGB4 gXJ1cL6lqEpzqrybgSTr dDsgdmVydGljYWwtYWxp X191EUGscHmjGsLpVSDg QC4yaAlxtPG+PC90 xo21E6KnFogiGky6EDVl YIW5kPV8cW1zPROgSUgm n5H7cLO5U9VrtnXgmb6b i6rcLKMjVWsdX98p yXJla4S5WPEkgEN3LJWt bYpnFpQweC74Eke+PGNv vXtkz7RpAzsmj6wlq0og pPs5KsJeYVLmazIr yYeqLVL3l2OvNm52K49l IHdpZHRoPSIzMCUiIHZh vVrskq0atH9fLn1+PGNv hHF7rLT4oH0uAjRv CkK6WKtfV720JjAyyMZr Cbeci4uhc7xpaWj9YdTo DXWfnxKwiOjmRJY9g3Xi Qk45V1KllZpus1Fy Phs0ep43rACyc2C1vDD2 Q1HqCJAgeznwnHZnlIec II2iFWYzpikaIVNfcI7l TRNjU7i3GjCsFxC2 GObiV9UbzfA8UQRhnIOm HEIlsKYTyY8ftipbq3gf kjahLcJqJKNhZVt9FRh7 LWFsaWduOiBsZWZ0 CdH5BHJ8hQSqnX9hwOho aebvzR7pDlv+COx2j7mv aGFcQL1wiCK4JR15VV82 vPZir1K4jZI9I9Na TSKpymfxkszghNV7SPWb VRMgfZ90Vu7jbZlpFt1v MRTfAPP8YXJafRLoN7Ab eP7lTtVaSILlSUVr L5VuxVPgQItvV233GWve QcI3DAKmvcDgL2BgKAYd kTblKfG2d2U3Er1VBB72 QK10UD86uMMvp1X4 sXE6L5IzFBChjlkkkllr aNP6AAAmZSVwlI03Bc4v bKzbIs9dJJVuFIC6XVYj rUYmB2YolA7qMiFl OFRfUMYuV9JlvJLuZBbz Y591RMrzNwR3NKVzmvTq N4AaYJCrwRjuTiB4v8Q9 Dj5DVz86TD73AD15 xSNhs9H7aRO2O6OyDHSa vhwbjbvzoJE8JJUmNFYz oS05Aa8vaZfxLa8uIVOt XJV7MKWxoSOcW4Ga zI8yBhJlERMrVKIyR5Xq jMOpEQkmB906HLttYqF0 XMIqgoXpH4BtRYMlwFqa UrG4v5O2Vi1FHBpc fkk0A5MhEbwgxKX+PC90 VKMrBF77eFGhyDFxq0aw iRu6FeFiVYOuZVJ3xZnp TFryu1XsUFKxL68m bGF (more content not included)... [facility] Coding Summary HTMLBase 64 QozvqhrdTWp8iZz+PGhl YWQ+ZL3CFEVuQ58ojNLk qY4bO5SZRWdZRievGGHQ MHsZFbAznrErSQ8rcGRh ZXJu IC8+GW1eMXHcTcfluGNz o5E6yAQ9C05obg8oTCbg vMP3LYZbAzDteaujz5xd xBp3CTrkNtdpDwNn GWPqvC18UBR0eB76Ze84 jMCzfYYkd9cudUb2CqWu OPWzZOE4yUwmBDffy6Jt IQNwQ82pjHJgh4Y1 IGNvbGxhcHNlOyBlbXB0 wL7bNZgdhdwxz3mvroqv Odb5ws49kOKtv4B1hNJ3 X0KxeuQ6ERGjxAMs BhiuiHXFzS1tkeqpa7sy tyviVyOrFWOmCYr3DVb0 MKVswOxpXeRbHH95AMT6 NOGcrbKgL1PlCSFz iJheNbI4d3S7Wy8CQ5RU FczfT2DUUYBOBMgtkKJ+ CI55rk40O9AiByndLek0 AFLvEZL2dBC4aS0s ICVvRFncl7C2oHL5U0Oh vzZryd4qm3hnEREpERye W26ciBQrc6J1WOCfpPN7 CLYpsUaxKzHhoV89 Oyc+PJJjmKhrc5XsLdzc s2dan7vzhBz8WmpoUNDq dyTagQyvGXM7n1PrXj5l BPDjlIE4lUT5tX6h NqSzGcI8PVwwC343FwPg eWVkHkhrR19aP5GnkKY+ DXYmZir5RITlfXmkCA7p Z2PyFTNcnlxhzYAa qLeqOB0eTQVnopnbTYLt gR8hTKStV7t2TeCbQwB4 SInoH3ThOESsojxhFh60 lW1yNbQfBcM2MJjf D6XlfbK2KPLiaHLfXBjv XPS8O87nn4F5OKCyUVGz JWR5wYO7mA5qaOaddhio bGVmdDsgdmVydGlj TEanTJtpO433BFLciVho PkNvZGluZyBEYXRlOiAg MDEvMzEvMjAyNDwvdGQ+ QDAhWOM0nSrpJAVb kOFfKYvkGz8zgPsooUil ZY1nPTQksvvtSCXepH8u WWUwuNMceYumNC0wNQAn nimbr906XhAbWMU7 NRRhtCFqY9QogC5oAsCs JXZoZKMqA8TduGFhZAav J067MRveRsX4THOleaQw M8RsHFQtpAgtGmU2 s2P7Zw9Fw2WphewmQ7Fj xFMvNvQkVnzrYCu5K2Ek PjwvdHI+OM65TIOgRV16 KZe6ESC9gMgaTGfc YXQyK2EyoK9uNbEdWQPd ZGRkOyc+PHRhYmxlIHdp ZHRoPScxMDAlJyBzdHls ZG4fWe6yRBYlTWHh yCxluLGtWmTpo2riZMTe PLtxKY8ckTvjO1SjkQV4 ONJan2q5Wz49H38wG2Em dXA+BITuaFJ1hJH4 xF6gJyDsZnN0KGmeW053 LhLnlOKxOoxzp7rwm7oy jPs2CbX1AEKuugWhlArv HML7l2PmLi87V09q IHdpZHRoPSIxNSUiIHZh eShjng4vjT0bDv0+PGNv nZX1uSJ1hO4gWkWhKsF0 KYolQ282LhPylAKy Vquez9vof2zkcFg5EeAz ZEPxafZdzHnfXTR1q1Ok Mw84P2ImcYyrw4SrAnh7 hq45wQPwf0B4wYT9 Y2TvORTohgavrGUihTxf MO0dTDQwzotmPGUyvN9k YDJxJ6h8OdKpCmA2LSic E5HfdyE6KWRsuQIl OBEyaJRIyK3pxjsqc9pw krqgNnLaVWHcYTs7EGv1 WUSjkLufZnTcUIM2EjH2 XIQ7tGGfsZ9sxRtg wrpepO0iJlh+RSR8bNXw uZIBDF8kEhbrtYD+PHRk LSL7wRieWEvjNISujS7g SHRiQ4o7XwFvLuO8 MSneD6CrjuY3EQNfwNKl YAMhbQCRuI4poffbl6wf jylhOtSaBGCrDHh6RSf0 LWFsaWduOiBsZWZ0 GeZ4JHY3sFPdyT1iuSim cofdwC9sEpj+QmlydGgg CJD0AEx1T5KhZrg7XQUj oLfvGQ3jhRJwHGbq Ml4mdExsqBulSC5sDSTm qphqm755DqFxp1udJRRe xPDnMFujYBT9P43re4F8 ETUsZRCiDQX2fOQ7 vB9ipLxodmvhwTQhdRpq vdPioJmxOUqrXJjwQ020 YXOhpUuyDcNgTMs8Y1Dh Kup4ABDqhKflYP4d wACxOTomEq7bgXrdlEbk QN9eAXAnrogbn434VdKk u3gjTLXhaRVxGIbzMWZ9 P65oa8D2POXiYEHz IHW4kTI2jY0wiGgyhqpw bGVmdDsgdmVydGljYWwt NEpzQ843GHPvfCubVaHy gDb2D1PiOmw5QBPy uMofHC1fdBZjXVtvZq2f fIdcrEfuRW4cEPAxcvyr l372SdMzx5klPTEeuKOp TGdtFZQ4J85dd9X0 MVFgGRYhAPU6lFJ2bG1k bGlnbjogbGVmdDsgdmVy qNryCEqqDDkaV736GSPs cDsnPlBhdGllbnQg YJviMLx8X6MyPqgruXW+ PP50KSXhFV07nZHqfXQn y6mvdNh3ZdYhURTmJTP7 iDgjBHlbi5MySIKr Y87loUIxv4W1OVPrwPvk fSTzDoAmiOJ1pA6rCUri zhlob8fcehafQcbkt4mi ev26rQ21Y87sPJym ZHRoPSIzMCUiIHZhbGln ka1nuD2wTg4+PGNvbCB3 dVF0oR2cDREcLyG0FNrp Z090EaXemCGrSyjt v3elu8fxfNf5LoB8DFUk bsPtpWkfPTB5n1OfSq24 P82qNJbzAHAbEECeDQYp EQFqkAmuqy6mpD1f Ii8+KHFqaEH3xHY9jA8j AhArZqN6HZkwI457IbFy yFAmHnbfE18gW8AsqGQ+ VXSwAfy9WPOpcJlf SR9kwTYrYKqmXz6oPNQ2 UkIhFrQuVKtqG9JfOOUe gxhcupqmtDA2FDLxXTZh cP72Dl0zxKsdKRWx uZYXeI8hiafuz0kajzft UkSoXDQhAYt9OCq4FVIi gRdkWlIaQON2ViJ9SLW4 tSXnzH7fuEmpzxaz kZ4aY7NbQXJcqeiiOm16 qR8uWtZwIeA5GMntQxi+ EcVYRWCmDLFQQj4PVXBC RTwvdGQ+PHRkIHN0 yYlmQOduFLFrbL9dXYXg C9n1CeTkSdL3SGvrT0Pa UOAayjvsXz02zJ5jVjJa KoF4SEbkN4OzivK6 VACjfQSuTHloSKP4A01e z9Z8JFGsDGIlEGW3eDE0 pN6bkUwjootdzDZcnUwh dmVydGljYWwtYWxp R274AGTjcNtmWyXeNhJg HnQ8WoX1I7FyRgl8CCXn uFujUH9udKMjPDxkZb2l pOkovDsbPO6oMYJm sxvmJLRkkF1fZHOgdGYj yAugGN2pEWWfzhvrf785 DuLmDKV4MFOqjDNnB3Yx nH1tBtYhNMGgWPBs C4QlySShBCbgK363JSca OaQ5QEHwtpLuC5XtZTDa sRqqPnV5k5N5Fu17ISOF ZWFyczwvdGQ+PHRk EWD9cYryHHkwMIJzgE5z IPDvA9r3UnRlRnO0PXpi R8SdVVMkpsofTj79qH4y CnNlZdD5THesQ8Mh xnT2QOXgtJSdNOjgOWA6 T85fv6C8MKGqJQUgLXT8 mFQ6pP2xxZpcjijqtASq dDsgdmVydGljYWwt IHdlV681CDJleFqwRzNJ TUFMRTwvdGQ+PHRkIHN0 eCtsLWiwKFIaqR4sXBRp N2h1TqMlYwV8YVhr D3GyDWVdqkedGs92tH1r CpMpTdU9SNdxM9GdcbU8 RSTdvVBwVTzzKON6F64n d9E9XRCxRXFyOHX2 eFX7oO9tmAyoshvhoWLb dDsgdmVydGljYWwtYWxp B137NSOzaMchWkVnUSZb PD2yeMxllXI+PC90 xi47C5JeLmgnUyn1SCNd MAS3gWX4dY8lFFTpXNuv i8N6eOY2T1ZeexLxsy4m h8rqIUFdCXahL55y yHIgr6N1QMPrdKE6KBSk rOvxHsXpjW57Fld+PGNv jKtuk5ZdTlytk9pnb9yc cTy4XgScOPRqshNt jGljPWR7l5CwKs17V47o IHdpZHRoPSIzMCUiIHZh iAzjyp0rvL8jWj0+PGNv kZF0uQW6kV5gBtOl IdR8KOatS276EgDgeFDw Rgquq6cfq7tvaGf8ZkVm BWTqavHriKqrRBH7j3Hk Zi35T6NrpKsiu2Vy Odf9mz69xORpm4B5bTG1 J6MsKZVghmediPTqtJgz WC1mXCCanaipNXNclA4u UUCnE4m3XkMjZtH7 STzzB4AjmjR6JLNkvYZl DENcsBTYpA7erbrfs8jn npgmQwFmJNZuRPh2AYr9 LWFsaWduOiBsZWZ0 MaM2IWL6mXPlgP5hfSlk spfeuO9jAzv+MSh6z9mu bWSuZO1brZT6TQ27UV07 cHWwn5Q7qQG3A6Do ZFZmeuskwuspvAJ3EWKq XAUldJ33Uv6xwEqcOk9n GDSzHYL3BCZybNSbJ4Va jE8dKsOiLPKdKMAa Z0CeeZZoRJscA974RWvs LyP6GAOdwqLeO0DqCTMo bIutJsX0e9J2Cx5KQN65 KO77PP55bPIbi0B1 iNX6Z4VuCCQsvhjacrwy dLI3MDNoZGLudK72Ew2t kRyvIo7ePXJnGXT3ZCXq ePIdG8WxlO3pTaOa FZAhLFYiT2NwaIJzGYuo V745BNgiYvY8CIEnhtYx I2HzUBDjtBktMsA7z7K4 Ef9UCd11NF83AR69 pUKoz7X8gST3M0GrETCl hufhngkauAY0KSJoWQNz dO09Gg5lyWypVh6eOXQm HEI2UWVsyOOfS8Mz wK4yRhPkDMTtVHApK4Zj qQClVJjbZ097ASusSyE9 QOHbscVjJ9CuBFEknJms LqJ0i2W9Kd1WGOyr pna7J1XhHkcchTS+PC90 OUIfLB73rBAgjBBtq0bq iIo5MbVnXOQmZLD0qIgd LFezs2ZjJVYpR13l bGF (more content not included)... [facility] Coding Summaryon 12-01-2023 Coding Summary HTMLBase 64 TuzfgewgVJn1tNu+PGhl YWQ+QU2FPZGdN94fsESq hA2iL2WITSqTXgmgIWER NVyHOjNswlRxPT6gbUGq ZXJu IC8+KW2tYTBkTytbeZQi o6Z6fVX6E33eka1nVHdz aGF7AJOyNdQrikjcs0vf oKx6QUzbIqsaAhHx DKYukL68GFR8eC11Rd45 wTQccBCzl6rejCp7IgFn HVWqMRP5nNuvJSiwz1Un QNFqA37poTQey6G2 IGNvbGxhcHNlOyBlbXB0 qX6eJKnhfsyec0nfhmhl Ham7cs32vMHuq8M3tHX8 F7BdzzP9GMFdgFNv KibyiSXKdY8ulajiw7tu cbxfZbUhFXPyFLg0XPl4 KXFnqJnhDaVzOX98RDX7 OKJhgzNrZ4EjFVXm rHetMhM6z3H4Oa8CU2KC BnuxB6SQCCRTGMcqhNH+ ZY25yi70K9XmAyyiXah0 JEFmCJF1lOU2qU6g YFAsIMpib2N3jIC1Y3La nlWxft4hg5ohVSPyXNyc C00pkNStz8C8WQXjlNG0 PCMfiEsbGwBsgK86 Oyc+QYPryMjao5XpTxqa x9aep1nfcLo7JlufCGBw obPgbCfaNWQ4o9AlXd8b TMKvbZL5vWF2gC6h ZhBvMsJ0XRlkN270VnYm xXOvOhuoL14vS2RkzSS+ LFRcDwr7FFBggUmfZE6e P9PdCYOxwxvfiFEz sZzkYE1hLMZyldblDCJq bD7uEKNyO6c7SqNvWlR8 YTmnO7GjLRXglyjsYs20 fD9bAjYgKjJ4ZMbr L2QkqwU7EYVmqPXhIAyz BTV9W41fy9L6SFInKDJa QNL7aQN1gA2cxQqslvmw bGVmdDsgdmVydGlj MBdpPHdlA855FGKguKuk PkNvZGluZyBEYXRlOiAg MDEvMjkvMjAyNDwvdGQ+ HIEuDGN6eBkdCGPt xYPpHNysBi5qsFopfDnq ZX4dNUBkjyysHUAvzU0r AKCxdUGsuMfqXD0rXTUh zycpf647TjGsWGQ8 OOKtlUImD1MhcZ7cSbTs NRInRKDkU2MttSTwEGdw K501QGauJwG3GSLkibHm N0TaSGVxxEbwJsJ6 n1B7En4Rz2KunsypB5Sq aVDtUrGjMaauFBy5C8Kn PjwvdHI+FB52OJLuYB44 ROh0SFZ3wQrnJJxf KALiD8SymL9pDjDrHFEe ZGRkOyc+PHRhYmxlIHdp ZHRoPScxMDAlJyBzdHls FQ6eNv7cPRKaFSNa eNomuVFmDyUzn7enZNIk GHloNI2tjYbzJ2FbfIL2 FQEob1x2Ab56S77kI9Po dXA+AOZgpKS5pYT9 sG7nMoTcHgL0XOteQ780 XvThiPVtLyyon9ulx3sj aFn9MeI6PIPsviCqtIjt QLC5j8ClXa41A29g IHdpZHRoPSIxNSUiIHZh uCjqra4siX2yJy5+PGNv dBQ4bLJ9pH3pTsNlSdB2 SBpcJ563ZgVkdPUn Fohrg9wvs4nykFn8RzYa FIIfbeQvoXfuLST0n5Il Vi60X0CitMprl4QaPiz5 hz92qTCkx5E6bBX0 O6MqROXhttjoqKBgpKyz FX7wLHGgcpwtLIPhsW0y KFFmU6p0JiKcWtG2PSzl Q3QfkdX6LTEhgSBp XRHvmLSGmF6kmoptw0wa wdoxWyViMEVoRKm0CJo2 YYVqiYcoYyEfSCH9YcD2 ERJ1zHPtoV4hgUmk tkofcO0vXpv+KZI7cAHn lGIOQA4zVdysoMI+PHRk WJY3fZilEKmiWTBrhI8q TSFfN8y7SqXzFeO4 NWzuQ7GheuR0TYQjpKBe PJVxtAVCkP9igvlru6db tceeKcDmROCfLMz2QHj0 LWFsaWduOiBsZWZ0 YzC2IOT5bVYhxJ3gjYhd zupjcU9rQwq+QmlydGgg PEO5EYy0K6HcUod1LXQt xWadMN1sjDQbLWdc Bp0voChheEnuWC9eLZPj eldbz022JoDeo7vcWAKg vPMxDEmmYDC2B19ds3J7 BIPpNLZpRYX2aQA7 fC5ujFostjppxYFhfOnn ahLkkJwhRGspRFvwS718 SPZwlMacXcGtAXf5A8Ky Oim8GHCipFeoTM3p tLQhHLzdBc9ezBizsWnk UL0rHGRqempjf610KlEo r5yxOKBltCPgBZkuVHI3 C40wc8K5NQWyIKZi JVE9kMW1sO6hqMsrpyzu bGVmdDsgdmVydGljYWwt RByqI970AUPhqYpcOrKc hQp3A0JlXum5LRZk bCjvQO4joHDdQGrbIr5b pZldmWwzYE8gJKIxkkrc q981AnCyp0geIRWpqKDz MAvjBKD3L52eu2J4 WKFhCBPkGIY2kRN3aE5r bGlnbjogbGVmdDsgdmVy lXohDAonROcrF391ONVr cDsnPlBhdGllbnQg DGxoCYh2W4GxAsijzAK+ NS82KKDrTF05gIWxgNLs h4qcdDr6GbJsQMFyTGS6 dRsoWWmag2NkELYp H10qkFFaq7A1KHGqmQtb lFYaHoYtvZG4rP0mKGiu bhuxm8snmjdtOakfq8nk ka16uR89S81tOMfl ZHRoPSIzMCUiIHZhbGln mo8qzG6lDu6+PGNvbCB3 qDA0sL7aUGAxFsC2YMpj W661YqOvfEKnGqmx b7xom3ddnFw3UpT4PNTy prTjyUkmACJ3i7KrCr63 Z14iTZhwFDVwGAGaLVUh BGYfhUdbqm1ynH8o Ii8+WMBtmRZ7vUX0nE9o RwToKkC7UZwaN134HnOr wYDbTftfA80zA3JvyRA+ MHGdFxv7BVRolRlc KK9axRLlVYhnHz6eLSD1 ZiRoChHjSMmqV2EgGZEw ubbvrttdeJD1VUKzGMUb vL80Lx2xeOryYERd cGUGiP8rqdnmj3yxmuij CbQfPOWoRDx4RXo4UFRa jKsfXrIbIWK7RaO2CLV3 nKZthQ3zcBehwvqo jL3bX6SwPDZilvweJl21 bK7oFrBwCjR7ZGozKux+ BnOLGHBtMVCDIe0RSHBK RTwvdGQ+PHRkIHN0 kMrwRCxjOIDuaY1iCODl N8g1UkVaSlI9PZlbP2Fd FCDjdrdsBf83eN1fDxNl DnY2BGnuN9SuasD5 HKQrvYTpHQftFQF4L02q i2R4YOMvKMArTCV9tJZ8 vS9xxGlhotyfsTEihUpv dmVydGljYWwtYWxp I708PZAriKanBfBhBxNe BcR6WmO5U5TiAdh0WMGn kMrrMQ6dtKZsSAhzMv5u lIsdmZoeDK2xHJMx vvpnYTPilZ0cJNGzqMKg qHotOK5zHYGrjnipy469 FoUgPYH2KMPqdORkF8Up uA6sRfPhAEMmWLJp W0QkaBMfKMicS096XAzl RnI5HNUlpjLpV0LoEBPc cBbvUsD7e5L5Ow39JCHQ ZWFyczwvdGQ+PHRk NDR7mIofMJmhQWSybC0q YFLvB6l8KkJiMeY3NVdv Z8HlMDRxvogvGp12rF4r VqGgXwN4FDriB6Ya psS9VVFogOFiCZoiECR9 Z41lm5K6IUAuRSKdXXF5 kXS5yY6ywYoloccsvAZs dDsgdmVydGljYWwt OJlwI140IZAkyWnuHmUB TUFMRTwvdGQ+PHRkIHN0 iRduKPapHMVffW1bMVXc Y9r1CyLzEoB5MEpz L4PqNEMwbvxyIg42bD5i DvGgQfC2EDzuX3CtywF1 AOAsrVKxOLypTFB0S95k x3D2YIMdZZUyCMA4 bTN6uO0flJztkruzwQYa dDsgdmVydGljYWwtYWxp Y774BJTtfJpsSgMgQOEh LW2wvLreoEK+PC90 dy40W0YlSdewFnx2MYSj HYA1hAG2lB9rJKMaKQug e2O4uRU4S5XundIrfg8n w2buIJSkFUpeE16e yPMqu9D5ZQSzoHB0NILw vLsbLuHdnD29Obq+PGNv uPkog8FnZilpu2pvi5ca sTn6CtViJPWwfnLx vDaiVOC4l6ZkRg73I96h IHdpZHRoPSIzMCUiIHZh rRgojt1joF1cHm0+PGNv wCN3qUG9eX5oIaQo QrF2RRyuU045RfYnpNCh Vlmpi3dnh1yxsRw6KjIe HBFhjoOupAraYLX0x9Um Jx84G2HfiKnks9Wb Bjc0ct83kCQic1M0vRX4 S1IaSHLvazgxvICykIhg AH7fIDSksefjXFRovV0a ACGtP7n0QlEsHqZ5 YNxxC3VnpdP1VIKwjUNg ABQzwRDIuR9zyuvlo3kb gducPqYnFNFaXFk4AXb1 LWFsaWduOiBsZWZ0 NiD3HTY3gXCxcB1eiYuk nwvsuJ8oPtp+PTl5w1vk cSVtSG6ngYC7JW90VU04 oMRaj2Q1vFU0A0Td ZAUjftydlrjzgLN9LWAn RMEdgS69Dq6olMebGe3t RWMdYMH8GWEjxAOsW2Uk jY9fWdAiTTFpMMGt M0BknUInRIviG686NXff OrU3YFAgwlJpD4DbNFFg qWqiHmS3k1W5Zq2SBA49 FX31BG40xENxu7W8 vMZ3P5LsKOAzqgkuuvpa rGX8SHRpBPEazD22Ix9m wApbDe3dUVKfZYG8TREz mLWvN2WuxE1lWwUd UCVuCVQoX2ChgDJsWZsn V282NKrxOtQ2XSPoxvOm C7MrOQZsoCpzQmZ6s0M3 Zn2YUh24UX10JN13 nWJsi8D8dHA3P3YwJDTy grpzzqxdiSJ3DWZtXHBy iV46Ry6zoVavUr2rEWVx QZS3BZThpWZvW8Yc xD2yQfKoNFRlBSPiO1Bg gKNqTJnnY660KIffSyP0 GDHraaGzB8FpNZCjiUzi GrF4a3Z4Mx7ZBKza mjj0V0QrJkddkVF+PC90 EYAmNP45xICerOLui9qu eJq7WsLmVAFiQIN1jHaf RNdvy0ZvTDAhB09x bGF (more content not included)... Normal [facility] ED Clinical Summaryon 2023 ED Clinical Summary [facility] - Emergency Department [address] [place] [id number] ED Clinical Summary PERSON INFORMATION Name: TOOTIE NICOLE Age: 47 Years Sex: FEMALE : 1975 MRN: Acct#: Visit Reason: Headache; MIGRAINE Arrival: 11/18/2023 21:15:56 Discharge: 11/18/2023 23:15:00 LOS: 000 02:00 Check In: 11/18/2023 21:15:56 Checkout:11/18/2023 23:15:00 Address: [address] [place], [place] [address] [address] PCP: Romeo Chaidez DO PROVIDER INFORMATION Provider Role Assigned Unassigned Patricia Cross LEGAL COUNSEL Nurse 11/18/2023 21:27:54 Jeff Ingram MD ED [...] iver verbalizes understanding of instructions given Comment: [facility] ED Note-Nursingon 11-18-2023 ED Note-Nursing Mag infused. IV dc'd Site clear and cathlon intact. Pressure dressing applied. Pt states that her headache is better but is still having problems with her restless legs. pt has to stand and move around while getting discharge instructions. Pt told to follow up with her neurologist or to return if any problem s -05 [facility] ED Note-Nursing Saline lock started in the lt hand. Pt medicated with Toradol, Benadryl, Decadron and Compazine (compazine mixed with NS and pushed very slowly) IVP then would have Magnesium IVPB. Room remains dark and present. massages neck more -05 [facility] ED Note-Nursing Dr Ingram in to inject pt's neck with Lidocaine 1% -05 [facility] ED Note-Nursing Pt arrives with complaints of [...] is nauseated/dry heaves, not vomiting. positive photophobia T-05 [facility] ED Patient Summaryon 024 ED Patient Summary [facility] - Emergency Department [address] [place] [address] PATIENT DISCHARGE INSTRUCTIONS Patient Information Name: TOOTIE NICOLE Age: 47 Years Date of : 1975 Reason For Visit: Headache; MIGRAINE Arrival Time: 11/18/2023 21:15:56 Primary Care Physician: Romeo Chaidez DO Attending Physician: Jeff Ingram MD Comment: Visit Diagnosis: Diagnoses This Visit Headache (92995995) Migraine syndrome (G43.909) The Pharmacy at [facility] is open Friday through Friday from 9A [...] alcohol and/or drug addiction problems; contact the [facility] 26/05 Crisis Hotline -Text 4HOPE to [phone]. If you received any narcotics, sedation, or [...] and treatment you received today in the [facility] Emergency Department were for an urgent problem and are not intended as complete care. It is important for you to follow up with a doctor, nurse practitioner, or physician?s assistant editor for ongoing care. If your symptoms become [...] so we can reach you if necessary. [facility] Emergency Department has provided you with a complete list of medications post discharge. Please inform your educational recruiter/provider of your visit and for further instruction [...] 162.56 cm (more content not included)... Normal [facility] Consultation Noteon 11-04-19 Consultation Note [id number] #1.00TIFF Normal [facility] Auto Diffon 10-01-2023 Basophils/100 WBC (Bld) 1.2 % Normal 0.0-2.0 [facility] Comment on above: Order Comment: Order Added by Discern Expert. Performed By: #### 1 [id number], 1703633, 0560960, 7698851, 516870343, 4207530, 2583353, 3587222, 2752899 ####[facility] [address] [place] [address] Basophils/Leukocytes Auto (Bld) [Pure # fraction] 0.1 E9/L Normal 0.0-0.2 [facility] Comment on above: Order Comment: Order Added by Discern Expert. Performed By: #### 1 [id number], 5219937, 8501731, 7593340, 511985593, 5757184, 0621284, 6808506, 2735114 ####[address] [place] [address] Eosinophils/100 WBC (Bld) 3.9 % Normal 0.0-8.0 [facility] Comment on above: Order Comment: Order Added by Discern Expert. Performed By: #### 1 3086099, 5463182, 7897982, 4342216, 224275406, 8808921, 7756286, 3232345, 8370891 ####[address] [address] Eosinophils/Leukocyte s Auto (Bld) [Pure # fraction] 0.4 E9/L Normal 0.0-0.5 [facility] Comment on above: Order Comment: Order Added by Discern Expert. Performed By: #### 1 4223629, 4089686, 8267209, 0609495, 899801572, 2518361, 2820453, 6976834, 1945364 ####[address] [address] Lymphocytes/100 WBC (Bld) 30.8 % Normal 14.0-50.0 [facility] Comment on above: Order Comment: Order Added by Jeanna Expert. Performed By: #### 1 1056299, 4290386, 5618754, 2430634, 659024634, 9800570, 6641652, 9770292, 9443613 ####[address] [place] [address] Lymphocytes/Leukocyte s Auto (Bld) [Pure # fraction] 3.0 E9/L Normal 1.0-4.0 [facility] Comment on above: Order Comment: Order Added by Jeanna Expert. Performed By: #### 1 9653497, 2913452, 0700649, 7762908, 859310272, 1767104, 5405055, 0653296, 5786727 ####[address] [place] [address] Monocytes/100 WBC (Bld) 5.8 % Normal 4.0-14.0 [facility] Comment on above: Order Comment: Order Added by Discern Expert. Performed By: #### 1 4710531, 3939138, 0232671, 2444344, 910240742, 6373774, 0758233, 2964885, 1283324 ####[address] [place] [address] Monocytes/Leukocytes Auto (Bld) [Pure # fraction] 0.6 E9/L Normal 0.2-1.0 [facility] Comment on above: Order Comment: Order Added by Discern Expert. Performed By: #### 1 1702964, 1907376, 3288392, 0684511, 024258844, 5750586, 7841145, 4678876, 8435536 ####[address] [place] [address] Neutrophils/100 WBC (Bld) 58.3 % Normal 36.0-75.0 [facility] Comment on above: Order Comment: Order Added by Discern Expert. Performed By: #### 1 2171942, 3538630, 1402261, 0269767, 383560711, 2307808, 6256053, 7118576, 2856463 ####[address] [place] [address] Neutrophils/Leukocyte s Auto (Bld) [Pure # fraction] 5.6 E9/L Normal 2.0-7.5 [facility] Comment on above: Order Comment: Order Added by Discern Expert. Performed By: #### 1 5687040, 6882064, 5514262, 1533679, 191823285, 3115373, 7248315, 4744109, 5795349 ####[address] [place] [address] CBC w/ Auto Diffon 3 Erythrocyte distribution width (RBC) [Ratio] 13.4 % Normal 10.9-14.2 [facility] Comment on above: Performed By: #### 1 2238115, 8429041, 0599691, 7330358, 325516364, 0533251, 8066755, 2244667, 3515101 ####[address] [place] [address] Hematocrit (Bld) [Volume fraction] 39.8 % Normal 34.0-46.0 [facility] Comment on above: Performed By: #### 1 8042927, 3287250, 0038725, 6128416, 933145699, 9737357, 5759525, 5748011, 9529767 ####[address] [place] [id number] Hemoglobin (Bld) [Mass/Vol] 13.7 g/dL Normal 12.0-16.0 [facility] Comment on above: Performed By: #### 1 8274343, 0674434, 3567907, 1525362, 577036364, 3568670, 4942068, 2607411, 0363834 ####[address] [address] MCH (RBC) [Entitic mass] 29.8 pg Normal 27.0-34.0 [facility] Comment on above: Performed By: #### 1 8515583, 5310453, 9659308, 5229737, 656696959, 5342325, 3914583, 0955562, 6322258 ####[address] MCHC (RBC) [Mass/Vol] 34.3 g/dL Normal 31.4-36.0 [facility] Comment on above: Performed By: #### 1 3949657, 9843330, 3117166, 2922932, 125861507, 1284517, 0856395, 8378609, 1874587 ####[address] [place] [address] MCV (RBC) [Entitic vol] 86.8 fL Normal 80.0-100.0 [facility] Comment on above: Performed By: #### 1 7175088, 1165952, 6761095, 2502850, 834869083, 4991985, 7306795, 8950933, 3707775 ####[address] [place] [address] Platelet mean volume (Bld) [Entitic vol] 7.7 fL Normal 6.4-10.8 [facility] Comment on above: Performed By: #### 1 6866806, 6850426, 1098481, 3856163, 664617004, 0149529, 2495431, 6594570, 8050385 ####[address] [place] [address] Platelets (Bld) [#/Vol] 418.0 E9/L Normal 150.0-500.0 [facility] Comment on above: Performed By: #### 1 3664937, 9486639, 1337508, 7534773, 128042383, 1579202, 4642765, 3954038, 8935369 ####[address] [address] RBC (Bld) [#/Vol] 4.6 E12/L Normal 4.3-5.9 [facility] Comment on above: Performed By: #### 1 6621950, 4665998, 9151703, 2620250, 131346194, 0037706, 8153377, 0463927, 7724386 ####[address] [place] [address] WBC corrected for nucl RBC Auto (Bld) [#/Vol] 9.6 E9/L Normal 4.0-11.0 [facility] Comment on above: Performed By: #### 1 4315643, 1077682, 7642658, 4211477, 155180220, 1759838, 8787855, 5942588, 1391078 ####[address] [place] [address] CHEMISTRYOrdered By: SYSTEM SYSTEM on 10-01-2023 Cobalamin (Vitamin B12) [Mass/Vol] [...] Treatmenton 09-04 Consent for Treatment [id number] #1.00TIFF Normal [facility] Ferritinon 10-01-2023 Ferritin [Mass/Vol] 43 ng/mL Normal 11-307 [facility] Comment on above: Result Comment: NORM ALS MEN <30 YRS 16-132 ng/mL MEN >30 YRS 8-338 ng/mL WOMEN (PREMEN) 6-104 ng/mL WOMEN (POSTMEN) 12-210 ng/mL Performed By: #### 1 1492137, 8634956, 2434002, 5436913, 294680228, 1641121, 9896540, 5943975, 6482881 ####[facility] [address] [place] [address] Folateon 10-01-2023 Folate [Mass/Vol] 8.5 ng/mL Normal >=6.7 [facility] Comment on above: Performed By: #### 1 7114998, 4480370, 7598237, 9562806, 981976020, 3934860, 4455202, 9795109, 1741795 ####[facility] [address] [place] [address] HEMATOLOGYOrdered By: SYSTEM SYSTEM on 10-01-2023 Basophils/100 [...] 0.6 E9/L Normal 0.2 - 1.0 E9/L [facility] Neutrophils/100 WBC (Bld) 58.3 % Normal 36.0 - 75.0 % [facility] Neutrophils/Leukocyte s Auto (Bld) [Pure # fraction] 5.6 E9/L Normal 2.0 - 7.5 E9/L [facility] HEMATOLOGYOrdered By: Liza Reynoso on 10-01-2023 Erythrocyte distribution width (RBC) [Ratio] 13.4 % Normal 10.9 - 14.2 % [facility] Hematocrit (Bld) [Volume fraction] 39.8 % Normal 34.0 - 46.0 % [facility] HemeAutoSS Hemoglobin (Bld) [Mass/Vol] 13.7 g/dL Normal 12.0 - 16.0 gm/dL [facility]eAutoSS MCH (RBC) [Entitic mass] 29.8 pg Normal 27.0 - 34.0 pg [facility] MCHC (RBC) [Mass/Vol] 34.3 g/dL Normal 31.4 - 36.0 gm /dL [facility] MCV (RBC) [Entitic vol] 86.8 fL Normal 80.0 - 100.0 fL [facility] Platelet mean volume (Bld) [Entitic vol] 7.7 fL Normal 6.4 - 10.8 fL [facility] Platelets (Bld) [#/Vol] 418.0 E9/L Normal 150.0 - 500.0 E9/L [facility] RBC (Bld) [#/Vol] 4.6 E12/L Normal 4.3 - 5.9 E12/L [facility] WBC corrected for nucl RBC Auto (Bld) [#/Vol] 9.6 E9/L Normal 4.0 - 11.0 E9/L [facility] JdyO5stt 10-01-2023 HbA1c (Bld) [Mass fraction] 5.6 % Normal <=5.9 [facility] Comment on above: Performed By: #### 1 [id number], [id number], 6531520, 0125818, [id number], 1448449, 4971795, 3222428, 0824628 ####[facility] [address] [place] [address] Ironon 10-01-2023 Iron [Mass/Vol] 75 microgram/dL Normal 35-153 [facility] Comment on above: Performed By: #### 1 [id number], 8339080, 7057606, 7081674, [id number], 4515504, 9170702, 1993108, 0381121 ####[facility] [address] [place] [address] TSH With T4fr Reflexon 10-01 TSH Qn 0.96 m[IU]/L Normal 0.34-5.60 [facility] Comment on above: Performed By: #### 1 [id number], 1717894, 3457864, 6003632, 130548938, 9761469, 5792628, 7914013, 3457191 ####[facility] [address] [place] [address] Transferrinon 10-01-2023 Transferrin [Mass/Vol] 310 mg/dL Normal 200-370 [facility] Comment on above: Performed By: #### 1 [id number], 8273245, 1738696, 5792690, [id number], 5743984, 4681361, 1483592, 1133783 ###[facility] [address] [place] [address] Vit B12on 10-01-2023 Cobalamin (Vitamin B12) [Mass/Vol] 369 pg/mL Normal 50-1500 [facility] Comment on above: Performed By: #### 1 [id number], 4682973, 8528894, 8309490, [id number], 2205133, 6856812, 8326684, 3083714 ####[facility] [address] [place] [address] Coding Summaryon 09-20-2023 Coding Summary HTMLBase 64 RzikzscsJNb2eXc+PGhl YWQ+KP8XUMQxI10jwHMv yW0rZ7KCEQcSLvsaBVCI OWkMFcHvseIxYL5hbLQj ZXJu IC8+GZ1pZXQhXwjtmTPy t4M7fYA2U46rvp6fNJlq jWD6HNSsTmHidgkfr9ju eCp2WJftAsdaPaIy SYXavC10FRF0nM43Ur18 vCQdsFAbv8jfoXe4YtOm SGKyWXJ9sMdkHUezd4Jf YLXkJ71crNUil9W5 IGNvbGxhcHNlOyBlbXB0 rK7oGQjzpnzkk1qcexcm Nsp1ov16fFWqq4U1hGH3 O9EkxvQ0KAQrrJZb FizpuRKLcJ7sgjmsr7vi ugvzKhVzFWPzDAa8WZz0 EJSbrVbmWnOdCV05FIV1 AWHqacOjO3BaXXKx eWogAvF1m9E5Yg8WA5EB HvdvY5DBKIPGJBkkoPP+ EF91ry90R9LrBtreYtg0 KILiHFF6bXL5rB7f DTIrOQgmg1C7zSA5P3Co kdHpqg7aa3ibNJCkHJoc Y53thPJuf7C2KOPsdFA6 ZFAglFotVrXggZ41 Oyc+UVDyzNxjf0IyUnam b5tcy3adcGa1LnlpHGZk jfUkfOrsLJH7o2ErMg7z WVMkbEW8uWK5eZ2e YsFbWtJ5XQcdT613QbJj tMYmTzcqW15iR2NmvIR+ UZMmRet2BCWufUbwTO9j C6MzKUUpajuigUOa rOgxWH9eGSDqqjwpDBGz fY9fUQRnE7x8YkJxRgA7 QHwwD0PiLFNgsvhmXy78 pW4rXgEnLhZ7PAbg I2DkjiM5GWPzvURwEPjs GLH3P30jj0Y8YWRkZRRc ROW2jGF7jG7igGoywzdc bGVmdDsgdmVydGlj UJwcWIdbF113QJBeuNbm PkNvZGluZyBEYXRlOiAg MTEvMTgvMjAyMzwvdGQ+ PPAuOKN5mUqtAYYd wWKuWUrcFl5dsJpbiAjl MK2gWMBlrfgcDQGuhE3n XUYwsEZrwDngAB1mCHNe rzbhu557BqUfLPU2 BRQgjJPuY2LnlN7eOcMr AXJyZQSqH5VqlJKnIYkr V113EQthCzN2QOYkgoJk K8DoXHKzsUysVzD8 c1Y6Ta9Wd7CayvacO5Vw lMWzDpKgMoiwOXh2Q0Zg PjwvdHI+SL92MLVhOL02 VUx2BQY1sLxuYEvt ROFcH2IpoI8qRyVlWFHm ZGRkOyc+PHRhYmxlIHdp ZHRoPScxMDAlJyBzdHls TU0mYp2dDQSzWLWu cTgolYLbRaTml3hlAPMy SElqEH4jpElbY3VpvTP7 DGTnr4s3Wo79Y49kN0Rv dXA+MHOtgPA1nRC2 hF7zHvTwNeE5AVwpX210 YbTiqXUvQkyjj1cwx0nz pPi8VcD6IRVmblGqvKad QPY5a2PsJa07B69t IHdpZHRoPSIxNSUiIHZh gOymcd2evT1uQl9+PGNv hNK0fSJ8fI1mWdCqFxW8 SIlhP474HuCcxATd Ljuur4piz1qfaAs6GnOu HFOrtmLvnBqrKRO2s0Mz Qm61K7OfoDscx3GhWgv3 ef88xGJzr4B1oLL0 H7RzNGBwrxvneRWxfPsx KI5wCIHeqyvmIRTfbO9f CQGjM9q6EkFwFgU9JQjs B3GchoE0HNZgeQWg EYXrhQOJfD3dsuuun8wa bbdyXcZfYJTfDLu1OXp8 NXDhjMkgGeDaEMG9ToB7 DGC5lDNqtK3mfSbb tfuecU9yPot+SNS9bSYi hIDAHA2qGsvyjXM+PHRk TGC4qXdkFTitSXMoiC2u XLUqC8f1WnJgMiP2 KVtiB5FgnrD2OTLagWLf JGAxjFSBoW8ivtpdf2sh lrwzCqUfYTJnBRr6GPn2 LWFsaWduOiBsZWZ0 SjF9TLP0oEPkvH0xgNvw citapX8zKdb+QmlydGgg UKG8FGw5G8CvNxa9IHQk hGlxSM2lxADlACry Dv9bwDlmnRegBG0fALBj uuyky745VsCfb6fcNRMo xZGoMNrxSFF3B71lz0D9 MFJlWUGsQAC6xAS5 iO4atRaqskdikCKjkWxv ynEzbKwnJYxdCWzzB153 TZDsqEnjUkMhUPw1T6Hl Pgo5WSFnyIoxMY7n tMIjZZmePm9zzFyjuTfb JD9pOGYwhahgy011PiTl z0bzTPPtaJOiDHnyJUU6 T97jx5S8EUPxNZAz KOG1uOC7eT7woCktheug bGVmdDsgdmVydGljYWwt YAnhO681AZWomKjmBpEp oKo2D1CfMar4QVNo sDfpJM8piMJrTOrmIr9i jDswbAjyKL8vACEzhctf x967MqIgp7urIKPfhDZs IYpdVNH6D31vi0U1 ZPStILGuMVV2lAE7rW8j bGlnbjogbGVmdDsgdmVy eMfxACazKGymF584BERx cDsnPlBhdGllbnQg SNfkDMj5F7TrYlngyJA+ FG90DNJzAR97qJMceGJm m3ycsAs5VtBzEEUdHEI1 tLpcJVfbr1AgPKDp X21coHHnw5U4MTWovGad uPLjPtFesAO8kZ7eDXsa uqfcs0wxuamcMerqf2ue vd02kB65U81xBEor ZHRoPSIzMCUiIHZhbGln va0cnS6vRh7+PGNvbCB3 lSF0xE8jETVxYxF6LPhk Q261NaTsyDPbYsns t0ydu5dutGf9KuI5YKZa orNmeItqNGW5d3KuIk41 T34dETilOREtSZSfPPWr SGHteFokkr3asX5w Ii8+JCMjxAN8zAZ6tX9k WqFqOpY3YOkkJ837UeMc lDUfYxbmN08cP0KqtZQ+ XLDfIhd6NBNswGpm PT3oeVXrNJiuZu2gODI2 HwGhMkCyOLlgB9FcCHOp ttysxedbyCQ9AVWkZKFf xV70Ra9gkJbmGMOr tWJHgU8pvbtgf3lyhpbn CwAeZRBlZUj7VAe5SOLa mJlmCfSeTCI1ZoL6UGC5 xWWanA4srOcvnxvf xV8dH6LxSXEhifkvGh28 qX5hPdReBcK1PAcjDkb+ YeRYRLEvVWPWEd7GNDTK RTwvdGQ+PHRkIHN0 yPxzQBvqFARfaY4dQGOf G7b6SdTpGlX4WTphK4Lg JDImmwitTf28oE1eCpXc FqU0SLuuI2FzvpC4 JHLnlFGuCLpxRMS6I45i y4G8GNTaJMCdTFO3bUO7 qI4smRttwbjmdDPmlLbz dmVydGljYWwtYWxp L233UXPpgXkrHtPmMcWp ImU6KtM9E2NcRhm9YAQn kWphAX5xtWWyETeeAd3y rJkliNclEM2nETUs lwyuIWRdaI1vIBVunUKn fPrhDC5mUSVgnbtew193 EeZpJZC7FOMtdPNkN3Li pS9yNlFoZWEsVDFm U7VcjZVbBGneV439ZHji DwX0GGLrnuLvX3EhCHSm sWzwGcU0f4E3Ok32IKNP ZWFyczwvdGQ+PHRk FRA4fCxfGWkhPJDmiF9k JQQfC7o1ToXeTmM4FHtb P0TyWFGrznzpJu76dH7d TcXbYvJ1JHadR7Ye leG6FWIriVDqGGdiURL5 C75nf1K3XVSoIBRiPEO6 vLD8lF9ecIetmnhzuIWp dDsgdmVydGljYWwt VAdzO416DAWsfXiaJqWO TUFMRTwvdGQ+PHRkIHN0 oZrkZFngOVDfqR4wOZNr V4e9FdWpMyX8WCot P8CqNHLubuapPz43dR2w QvBqPaN3LSdbT4YtjmB8 TGMidCCfWXkjFKL1Q67k w6H9CHVcKRTnKHE7 qMG6tQ8dzGdyxzohmKPw dDsgdmVydGljYWwtYWxp G427VYHhxDquKcSpVOWr ED7loKcenEY+PC90 cx24T0NlVnbzQuz0SJWi TUW1cFV8hW3nXIXxUDpb j4P6hZG3G8EnhsIrze3z y1acNLAnWFsoI58l vMHft6L7AVMibSO5OJWw qPwgEkCisI14Wpo+PGNv zYkem0QmEqdbs6bbs4tt jRe5HlZfSHYnkbDf gCruNWI0d3FeSn40S29n IHdpZHRoPSIzMCUiIHZh xVfgxf1wbY7xIa2+PGNv pXR6aZV8aU5xFkDq FbM1ENhsW016LbLeaBKg Maxtq2dsv9nncPk3PtCc MDUfoiMycYjsXZW1o0Nr Pv49S0IxySrfh3Ks Nxt4nv66bOLcu3L2vKP4 Z6MuEBZaskaofGTxdDpx GN0sHYMczmesPEYqfV5x BPSyB9j8WaRaBjV5 NOxeD9DzbmS0LGHomQCb EDLkmGHBoW8hvbavp8gr quwhMmSsXACtUXo4HOy8 LWFsaWduOiBsZWZ0 RjC9XXT7xAIiiB8gwJof zmcfbJ8fMho+VRn8b9bm wMTrFL6gcXM1ZJ77HR55 fOPgk0G4wAY2O9Io BDTxtlpqofeygIA1KRLp LPDivB07St0rcOpePf3h BTPeDOO8OYAjdPNcW4Gs cO5rMlAtGWEgSRPf V5XchKOlPGzzN604ZXri YmL8TEExqqBcE3LjRJBd rJclGrS2b4F2Yi7LYG51 RS25GA03vLUfh0T8 hWC9W8HhJXOltohtsukf cUW6RBVbPWWekZ96Sh3o mLzzDr4zDNQiZED9MGFt gGEeL7RygG4hHnAo IPVuWHBaF2XnhOXmCIys V557OHdnAbV6UTHjkeZh F8BgNGKfrZqsWoO9v0O4 Jb2URl67HJ93UI55 bYRyo0B2aYD7X9BmGJEo qhlukzqbhKE3PTYgWKAf yK29Os4tyPlnXu0rOKCl JEZ7VEBcnOIyI0Mu nI9aOpZcQPLlJPCsF0Tl fBJfBBupD948MFckOmO8 AKKtznVeL4PuBMQbpTlt YuI6i6L2Ke3BIZwb wrf1S4HnVkjlpEK+PC90 KQMuGH64hRZvaHUah4yv uHn9IlWhKWGwKSK1zJjd XNauc1IkNWDhR05p bGF (more content not included)... [facility] Consent for Flu Vaccineon Consent for Flu Vaccine [id number]# 1.00TIFF [facility] Office/Clini c Noteon 09-17-2023 Family [...] has ADHD and struggles with anger issues 07/24/2023-neurologyMacrina Martínez Botox injections for chronic migraines Patient [...] no si (more content not included)... Normal [facility] Comment on above: Result Comment: Elec tronically Signed By: Romeo Chaidez DO\Date and Time Signed: 09/17/23 17:33 EST ED Clinical Summaryon 2022 ED Clinical Summary [facility] [address] [place] [address] ED Clinical Summary PERSON INFORMATION Name: TOOTIE NICOLE Age: 47 Years Sex: FEMALE : 1975 MRN: Acct#: Visit Reason: Headache - Recurrent; Nausea; Neurologic problem; HEADACHE Arrival: 09/15/2023 21:33:37 Discharge: 09/15/2023 23:42:00 LOS: 000 02:09 Check In: 09/15/2023 21:33:37 Checkout:09/15/2023 23:42:00 Address: [address] [place] [address] PCP: Romeo Chaidez DO PROVIDER INFORMATION Provider Role Assigned Unassigned Heath RN, Melani Stock ED Nurse 09/15/2023 22:00:18 Tru [...] Home PATIENT EDUCATION INFORMATION Instructions: Migraine Headache, Jpil-xz-Alki Follow-Up: With: Address: When: Lisa Martínez [facility] [place] [address] Business (1) Within 3 to 5 days Comments: home continue with Dr Martínez, call her office tomorrow for a recheck apt you are welcomed to return anytime. Sanjay MATT< ER PHYSICIAN< H Adri [facility] DIAGNOSIS: Migraine variant Patient Understands: Yes - Patient/family/careg iver verbalizes understanding of instructions given Comment: [facility] ED Note - Physicianon 2022 ED Note [...] Family/ Social History Medical history: Resolved Migraines ([id number]): Resolved.. Surgical history: Rhinoplasty ([id number]) on 07/10/2016 at 40 Years. DNS (deviated nasal septum) ([id number]) on 07/10/2016 at 40 Years. Nasal polypectomy ([id number]). Appendectomy ([id number]).. Family history: No family history items have [...] 11/04 ppd - 09/15/2023 21:47 - Olimpia RN, Anika Stock Electronic Cigarette/Vaping 06/04/2023 Electronic Cigarette [...] home Impression and Plan Diagnosis Migraine variant ([id number] G43.809, Discharge, Medical) Plan Condition: Improved. Disposition: Discharged: time 09/15/2023 23:27:00. Patient was given the following educational materials: Migraine Headache, Cgzx-cw-Sntd. Follow up with: ; Lisa Martínez Within 3 to [address] Martínez, call her office tomorrow for a recheck apt you are welcomed to return anytime. Sanjay MATT< ER PHYSICIAN< Verna Cornelius. [Electronically Signed on: 09/16/2023 02:56 EST] Tru Matt DO [Verified on: 09/16/2023 02:56 EST] Tru Matt DO [facility] ED Patient Summaryon 023 ED Patient Summary [facility] [address] [place] [address] PATIENT DISCHARGE INSTRUCTIONS Patient Information Name: TOOTIE NICOLE Age: 47 Years Date of : 1975 Reason For Visit: Headache - Recurrent; Nausea; Neurologic problem; HEADACHE Arrival Time: 09/15/2023 21:33:37 Primary Care Physician: Romeo Chaidez DO Attending Physician: Tru Matt DO Comment: Visit Diagnosis: Diagnoses This Visit Headache - Recurrent ([id number]) Migraine variant (G43.809) Nausea ([id number]) Neurologic problem ([id number]) The Pharmacy at [facility] is open Friday through Friday from 9A [...] alcohol and/or drug addiction problems; contact the [facility] 26/05 Crisis Hotline -Text 3UQAX ht [phone]. If you received any narcotics, sedation, or [...] Address: When: Lisa Martínez [address] [place] [address] Business (1) Within 3 to 5 days Comments: home continue with Dr Martínez, call her office tomorrow for a recheck apt you are welcomed to return anytime. Sanjay MATT< ER PHYSICIAN< H B [facility] Medication Information: The exam and treatment you received today in the [facility] Emergency Department were for an urgent problem and are not intended as complete care. It is important for you to follow up with a doctor, nurse practitioner, or physician?s assistant editor for ongoing care. If your symptoms become [...] so we can reach you if necessary. [facility] Emergency Department has provided you with a complete list of medications post discharge. Please inform your educational recruiter/provider of your visit and for further instruction [...] bpm Re (more content not included)... Normal [facility] 03-18-2023 [facility] Office Visit (PLASMN) TOOTIE NICOLE ([id number]) 1975 F Date Time Provider Department 03/18/23 [...] Status:Closed by REMIGIO TRUJILLO on 03/18/23 Normal [facility] CARDIAC YAJAIRA ADMITon 023 CK [Catalytic activity/Vol] 104 U/L Normal 26-192 [facility] Comment on above: Performed By: #### C MELO MORALES #### [facility] [address] [place] [address] Dr. Fabian Rivas CK.MB [Mass/Vol] 0.90 ng/mL Normal <=3.60 [facility] Comment on above: Performed By: #### MELO ZHENG #### [facility] [address] [address] [address] Fabian Rivas HSTROP <4.0 Normal 4.0-51.3 [facility] Comment on above: Result Comment: CUT- OFF POINTS HAVE BEEN ESTABLISHED BASED ON THE FOURTH UNIVERSAL DEFINITIONS OF MYOCARDIAL INFARCTION. THE UPPER REFERENCE LIMIT (URL) OF TROPONIN, DEFINED THE 99TH PERCENTILE OF cTnI DISTRIBUTION IN A REFERENCE POPULATION, HAS BEEN CONFIRMED THE DECISION THRESHOLD FOR DE DIAGNOSIS. Performed By: #### C MELO MORALES #### [facility] [address] [address] [address] Fabian Rivas NORMAN 32 ng/mL Normal 9-82 [facility] Comment on above: Performed By: #### C MADM, BMP #### [facility] [address] [place] [address] Dr. Fabian iRvas CBC AUTO DIFFon 11-24-2022 BASO # 0.1 103/ul Normal 0.0-0.1 [facility] Comment on above: Performed By: #### C BC #### [facility] [address] [place] [address] Dr. Fabian Rivas Basophils/100 WBC (Bld) 0.9 % Normal 0.2-2.0 [facility] Comment on above: Performed By: #### C BC #### [facility] [address] [place] [address] Dr. Fabian Rivas EO # 0.4 103/ul Normal 0.0-0.7 [facility] Comment on above: Performed By: #### C BC #### [facility] [address] [place] [address] Dr. Fabian Rivas Eosinophils/100 WBC (Bld) 3.8 % Normal 0.9-7.0 [facility] Comment on above: Performed By: #### C BC #### [facility] [address] [place] [address] Dr. Fabian Rivas Erythrocyte distribution width (RBC) [Ratio] 13.4 % Normal 11.0-15.0 [facility] Comment on above: Performed By: #### C BC #### [facility] [address] [place] [address] Dr. Fabian Rivas Hematocrit (Bld) [Volume fraction] 36.8 % Normal 36.0-48.0 [facility] Comment on above: Performed By: #### C BC #### [facility] [address] [place] [address] Dr. Fabian Rivas Hemoglobin (Bld) [Mass/Vol] 12.9 g/dL Normal 12.0-16.0 [facility] Comment on above: Performed By: #### C BC #### [facility] [address] [place] [address] Dr. Fabian Rivas IG # 0.02 10e3/ul Normal 0.00-0.03 [facility] Comment on above: Performed By: #### C BC #### [facility] [address] [place] [address] Dr. Fabian Rivas IG % 0.2 % Normal 0.0-0.5 [facility] Comment on above: Performed By: #### C BC #### [facility] [address] [place] [address] Dr. Fabian Rivas LYMPH # 2.7 103/ul Normal 1.2-3.8 [facility] Comment on above: Performed By: #### C BC #### [facility] [address] [place] [address] Dr. Fabian Rivas Lymphocytes/100 WBC (Bld) 27.3 % Normal 20.5-60.0 [facility] Comment on above: Performed By: #### C BC #### [facility] [address] [place] [address] Dr. Fabian Rivas MANUAL DIFF REQ NO Normal [facility] Comment on above: Performed By: #### C BC #### [facility] [address] [place] [address] Dr. Fabian Rivas MCH (RBC) [Entitic mass] 28.5 pg Normal 26.7-34.0 [facility] Comment on above: Performed By: #### C BC #### [facility] [address] [place] [address] Dr. Fabian Rivas MCHC (RBC) [Mass/Vol] 35.1 g/dL Normal 29.9-35.2 [facility] Comment on above: Performed By: #### C BC #### [facility] [address] [place] [address] Dr. Fabian Rivas MCV (RBC) [Entitic vol] 81.4 fL Normal 81.0-99.0 [facility] Comment on above: Performed By: #### C BC #### [facility] [address] [place] [address] Dr. Fabian Rivas MONO # 0.5 103/ul Normal 0.3-0.8 [facility] Comment on above: Performed By: #### C BC #### [facility] [address] [place] [address] Dr. Fabian Rivas Monocytes/100 WBC (Bld) 5.3 % Normal 1.7-12.0 [facility] Comment on above: Performed By: #### C BC #### [facility] [address] [place] [address] Dr. Fabian Rivas NEUT # 6.1 103/ul Normal 1.4-6.5 [facility] Comment on above: Performed By: #### C BC #### [facility] [address] [place] [address] Dr. Fabian Rivas Neutrophils/100 WBC (Bld) 62.5 % Normal 43.0-75.0 [facility] Comment on above: Performed By: #### C BC #### [facility] [address] [place] [address] Dr. Fabian Rivas Platelet mean volume (Bld) [Entitic vol] 9.7 fL Normal 9.5-13.5 [facility] Comment on above: Performed By: #### C BC #### [facility] [address] [place] [address] Dr. Fabian Rivas PLT 347 103/ul Normal 150-450 [facility] Comment on above: Performed By: #### C BC #### [facility] [address] [place] [address] Dr. Fabian Rivas RBC 4.52 106/ul Normal 4.20-5.40 [facility] Comment on above: Performed By: #### C BC #### [facility] [address] [place] [address] Dr. Fabian Rivas WBC 9.7 103/ul Normal 4.0-11.0 [facility] Comment on above: Performed By: #### C BC #### [facility] [address] [place] [address] Dr. Fabian Rivas PROF CHEM 8 (BAS METB)on Anion gap [Moles/Vol] 14.9 mmol/L Normal Th [facility] Comment on above: Performed By: #### C MADM, BMP #### [facility] [address] [place] [address] Dr. Fabian Rivas Calcium [Mass/Vol] 9.2 mg/dL Normal 8.5-10.1 [facility] Comment on above: Performed By: #### C MADM, BMP #### [facility] [address] [place] [address] Dr. Fabian Rivas Chloride [Moles/Vol] 103 mmol/L Normal 98-107 [facility] Comment on above: Performed By: #### C MADM, BMP #### [facility] [address] [place] [address] Dr. Fabian Rivas CO2 [Moles/Vol] 25.5 mmol/L Normal 21.0-32.0 [facility] Comment on above: Performed By: #### C MADM, BMP #### [facility] [address] [place] [address] Dr. Fabian Rivas Creatinine [Mass/Vol] 0.56 mg/dL Normal 0.55-1.02 [facility] Comment on above: Performed By: #### C STACIM, BMP #### [facility] [address] [place] [address] Dr. Fabian Rivas EGFR-AF [place] >60 Normal >=60 [facility] Comment on above: Performed By: #### C STACIM, BMP #### [facility] [address] [place] [address] Dr. Fabian Rivsa EGFR-NON AF [place] >60 Normal >=60 [facility] Comment on above: Performed By: #### C MADM, BMP #### [facility] [address] [place] [address] Dr. Fabian Rivas Glucose [Mass/Vol] 100 mg/dL Normal 74-106 [facility] Comment on above: Performed By: #### C MADM, BMP #### [facility] [address] [place] [address] Dr. Fabian Rivas Potassium [Moles/Vol] 4.4 mmol/L Normal 3.5-5.1 [facility] Comment on above: Performed By: #### C STACIM, BMP #### [facility] [address] [address] [address] Fabian Rivas Sodium [Moles/Vol] 139 mmol/L Normal 136-145 [facility] Comment on above: Performed By: #### C STACIM, BMP #### [facility] [address] [address] [address] Fabian Rivas Urea nitrogen [Mass/Vol] 11.0 mg/dL Normal 7.0-18.0 [facility] Comment on above: Performed By: #### C STACIM, BMP #### [facility] [address] [place] [address] Dr. Fabian Rivas Urea nitrogen/Creatinine [Mass ratio] 19.6 mg/mg Normal [facility] Comment on above: Performed By: #### C CARMEN, BMP #### [facility] [address] [place] [address] Dr. Fabian Rivas XR CHEST 1 Von 11-24-2022 XR CHEST 1 V EXAM: XR CHEST 1 V INDICATION: CHEST PAIN, UNSPECIFIED. COMPARISON: None. TECHNIQUE: Single frontal view of the chest FINDINGS: Normal cardiomediastinal contours. Clear lungs. No pleural effusion or pneumothorax. No acute osseous abnormality. IMPRESSION: No acute cardiopulmonary process. Electronically authenticated by: ILIANA BERMUDEZ Date: 2022-11-24 15:28 Normal [facility] Albumin [Mass/volume] in Ser um or PlasmaOrdered By: Myron Sullivan on 05-22-2022 Albumin [Mass/Vol] 3.2 g/dL 3.2-5.5 [facility] Automated erythrocytes count in urine sediment (number/area)Ordered By: Myron Sullivan on 05-22-2022 RBC Auto (Urine sed) [#/Area] 3-4 [HPF] 0-4 [facility] Automated leukocytes count i n urine sediment (number/area)Ordered By: Myron Sullivan on 05-22-2022 WBC Auto (Urine sed) [#/Area] 3-4 [HPF] 0-4 [facility] Bilirubin Test strip Ql (U)O rdered By: Myron Sullivan on 05-22-2022 Bilirubin Ql (U) Negative Negative [facility] Blood Cultureon 05-22-2022 Bacteria identified Cx Nom (Bld) NO GROWTH 5 DAYS PERFORMED BY: [facility] [address] [id number] PATHOLOGIST COMMUNITY DEVELOPMENT MANAGER SCARLETT MARIN M.D. Normal [facility] Comment on above: Performed By: #### L ACTIC, CUBLD #### [facility] [address] Blood hemoglobin measurement (mass/volume)Ordered By: Myron Sullivan on 05-22-2022 Hemoglobin (Bld) [Mass/Vol] 10.2 g/dL 11.8-15.4 [facility] COVID-19 Antigenon 2 COVID-19 Antigen Healthcare Worker?: [...] developed and its performance characteristic determined by [employer] and validated at [facility]. This test has not been FDA cleared [...] for SARS Antigen by [employer] PERFORMED BY: [place] [address] PATHOLOGIST COMMUNITY DEVELOPMENT MANAGER SCARLETT MARIN M.D. Normal [facility] Comment on above: Performed By: #### C OVID-19 JANINE, SOFIANEG #### [address] COVID-19 SOFIAOrdered By: Alejandro Shaikh on 05-22-2022 SARS-CoV+SARS-CoV-2 (COVID-19) Ag IA.rapid Ql (Resp) Negative Negative [facility] Comment on above: This is a duplicate Janine SARS Antigen ([facility]Q) result to be used for statistical tracking purpose only. CT abdomen pelvis w conon CT abdomen pelvis w con [facility] [place] [address] [place], [place] [id number] CT Scan Report Signed Patient: Tootie Nicole MR#: [id number] : 1975 Acct:[id number] Age/Sex: 46 / F ADM Date: 05/22/22 Loc: ER Room: Type: [facility] ER Attending Dr: Copies to: Brady Shaikh [...] Yajaira Goodson M.D.05/22/2022 8:24 AM Dictation Location: [place] [address] Transcribed By: [facility] 05/22/22823 Dictated By: Yajaira Goodson II, MD 05/22/22813 Signed By: 05/22/22823 Normal [facility] Color Auto (U)Ordered By: Elsy Sullivan on 05-22-2022 Color (U) Yellow Yellow [facility] Comprehensive Metabolic Pane zen 05-22-2022 Albumin [Mass/Vol] 3.2 g/dL Normal 3.2-5.5 [facility] Comment on above: Performed By: #### C BCNO, CMP, LIPASE, ADDONUAPLUS ####[place] [id number] [facility] Albumin/Globulin [Mass ratio] 1.0 {ratio} Normal [facility] Comment on above: Performed By: #### C BCNO, CMP, LIPASE, ADDONUAPLUS ####[place] [id number] [facility] ALP [Catalytic activity/Vol] 44 U/L Normal 32-92 [facility] Comment on above: Performed By: #### C BCNO, CMP, LIPASE, ADDONUAPLUS ####[place] [id number] [facility] ALT [Catalytic activity/Vol] 22 U/L Normal 10-60 [facility] Comment on above: Performed By: #### C BCNO, CMP, LIPASE, ADDONUAPLUS ####[place] [id number] [facility] AST [Catalytic activity/Vol] 19 U/L Normal 10-42 [facility] Comment on above: Performed By: #### C BCNO, CMP, LIPASE, ADDONUAPLUS ####[place] [id number] [facility] Bilirubin [Mass/Vol] 0.6 mg/dL Normal 0.3-1.[address] [facility] Comment on above: Performed By: #### C BCNO, CMP, LIPASE, ADDONUAPLUS ####[place] [id number] [facility] Calcium [Mass/Vol] 9.2 mg/dL Normal 8.2-10.2 [facility] Comment on above: Performed By: #### C BCNO, CMP, LIPASE, ADDONUAPLUS ####[place] [id number] [facility] Chloride [Moles/Vol] 104 mmol/L Normal 95-[address] [facility] Comment on above: Performed By: #### C BCNO, CMP, LIPASE, ADDONUAPLUS ####[place] [address] [place] CO2 [Moles/Vol] 23.0 mmol/L Normal 22.0-30.0 [facility] Comment on above: Performed By: #### C BCNO, CMP, LIPASE, ADDONUAPLUS ####[address] Creatinine [Mass/Vol] 0.56 mg/dL Normal 0.44-1.03 [facility] Comment on above: Performed By: #### C BCNO, CMP, LIPASE, ADDONUAPLUS ####[address] Estimated GFR ( Padmini > 60 [facility] Comment on above: Result Comment: GFR estimated reference range: According to KDOQI guidelines, <60 ml/min/1.73m2 is sufficient to diagnose a patient with chronic kidney disease. Performed By: #### C BCNO, CMP, LIPASE, ADDONUAPLUS ####[address] Estimated GFR (Non- Am > 60 [facility] Comment on above: Performed By: #### C BCNO, CMP, LIPASE, ADDONUAPLUS ####[address] Globulin (S) [Mass/Vol] 3.3 g/dL Normal [facility] Comment on above: Performed By: #### C BCNO, CMP, LIPASE, ADDONUAPLUS ####[address] Glucose [Mass/Vol] 104 mg/dL High 70-100 [facility] Comment on above: Result Comment: [place] om Glucose Reference Range is dependent on time and content of last meal. Glucose of more than 200 mg/dL in a nonstressed, ambulatory subject supports the diagnosis of Diabetes Mellitus. ADA recommended reference range Performed By: #### C BCNO, CMP, LIPASE, ADDONUAPLUS ####[address] Potassium [Moles/Vol] 3.7 mmol/L Normal 3.5-5.1 [facility] Comment on above: Performed By: #### C BCNO, CMP, LIPASE, ADDONUAPLUS ####[place] [id number] [facility] Protein [Mass/Vol] 6.5 g/dL Normal 6.1-7.9 [facility] Comment on above: Performed By: #### C BCNO, CMP, LIPASE, ADDONUAPLUS ####[place] [id number] [facility] Sodium [Moles/Vol] 136 mmol/L Normal 136-146 [facility] Comment on above: Performed By: #### C BCNO, CMP, LIPASE, ADDONUAPLUS ####[address] Urea nitrogen [Mass/Vol] 10 mg/dL Normal 9-23 [facility] Comment on above: Performed By: #### C BCNO, CMP, LIPASE, ADDONUAPLUS ####[address] Creatinine and Glomerular fi ltration rate.predicted panel (S/P/Bld)Ordered By: Myron Sullivan on 05-22-2022 Creatinine [Mass/Vol] 0.56 mg/dL 0.44-1.03 [facility] Dipstick and Microscopicon 0 05-22-2022 Appearance (U) Clear Normal Clear [facility] Comment on above: Order Comment: Name Collection Type:: Collection Method Unknown Performed By: #### C BCNO, CMP, LIPASE, ADDONUAPLUS ####[place] [id number] [facility] Bacteria,Urine None Seen Normal None Seen [facility] Comment on above: Order Comment: Name Collection Type:: Collection Method Unknown Performed By: #### C BCNO, CMP, LIPASE, ADDONUAPLUS ####[place] [id number] [facility] Bilirubin,Urine Negative Normal Negative [facility] Comment on above: Order Comment: Name Collection Type:: Collection Method Unknown Performed By: #### C BCNO, CMP, LIPASE, ADDONUAPLUS ####[place] [id number] [place] [address] [facility] Color (U) Yellow Normal Yellow [facility] Comment on above: Order Comment: Name Collection Type:: Collection Method Unknown Performed By: #### C BCNO, CMP, LIPASE, ADDONUAPLUS ####[place] [id number] [place] [address] [facility] Glucose Ql (U) Normal Normal Normal [facility] Comment on above: Order Comment: Name Collection Type:: Collection Method Unknown Performed By: #### C BCNO, CMP, LIPASE, ADDONUAPLUS ####[place] [id number] [facility] Hyaline Casts,Urine 0-8 Normal 0-8 [facility] Comment on above: Order Comment: Name Collection Type:: Collection Method Unknown Result Comment: PERF ORMED BY: [facility] [address] [address] PATHOLOGIST COMMUNITY DEVELOPMENT MANAGER SCARLETT MARIN M.D. Performed By: #### C BCNO, CMP, LIPASE, ADDONUAPLUS ####[place] [id number] [facility] Ketones Ql (U) Negative Normal Negative [facility] Comment on above: Order Comment: Name Collection Type:: Collection Method Unknown Performed By: #### C BCNO, CMP, LIPASE, ADDONUAPLUS ####[place] [id number] [facility] Leukocyte esterase Test strip Ql (U) Negative Normal Negative [facility] Comment on above: Order Comment: Name Collection Type:: Collection Method Unknown Performed By: #### C BCNO, CMP, LIPASE, ADDONUAPLUS ####[place] [id number] [facility] Nitrite,Urine Negative Normal Negative [facility] Comment on above: Order Comment: Name Collection Type:: Collection Method Unknown Performed By: #### C BCNO, CMP, LIPASE, ADDONUAPLUS ####[place] [id number] [facility] Occult Blood,Urine 2+ High Negative [facility] Comment on above: Order Comment: Name Collection Type:: Collection Method Unknown Result Comment: PERF ORMED BY: [facility] [address] [place] [address] PATHOLOGIST COMMUNITY DEVELOPMENT MANAGER SCARLETT MARIN M.D. Performed By: #### C BCNO, CMP, LIPASE, ADDONUAPLUS ####[address] [address] [facility] pH (U) 5.5 [pH] Normal 5.0-9.0 [facility] Comment on above: Order Comment: Name Collection Type:: Collection Method Unknown Performed By: #### C BCNO, CMP, LIPASE, ADDONUAPLUS ####[address] [address] [facility] Protein,Urine Negative Normal Negative [facility] Comment on above: Order Comment: Name Collection Type:: Collection Method Unknown Performed By: #### C BCNO, CMP, LIPASE, ADDONUAPLUS ####[address] [address] [facility] RBC,Urine 3-4 Normal 0-4 [facility] Comment on above: Order Comment: Name Collection Type:: Collection Method Unknown Performed By: #### C BCNO, CMP, LIPASE, ADDONUAPLUS ####[address] [address] [facility] Specificy [place],Urine 1.016 Normal 1.001-1.030 [facility] Comment on above: Order Comment: Name Collection Type:: Collection Method Unknown Performed By: #### C BCNO, CMP, LIPASE, ADDONUAPLUS ####[address] [address] [facility] Squamous Epithelial Cell,Urine 5-9 High 0-2 [facility] Comment on above: Order Comment: Name Collection Type:: Collection Method Unknown Performed By: #### C BCNO, CMP, LIPASE, ADDONUAPLUS ####[address] [address] [facility] Urobilinogen,Urine Normal Normal Normal [facility] Comment on above: Order Comment: Name Collection Type:: Collection Method Unknown Performed By: #### C BCNO, CMP, LIPASE, ADDONUAPLUS ####[place] [id number] [address] WBC,Urine 3-4 Normal 0-4 [facility] Comment on above: Order Comment: Name Collection Type:: Collection Method Unknown Performed By: #### C BCNO, CMP, LIPASE, ADDONUAPLUS ####[address] Erythrocyte distribution wid th Auto (RBC) [Ratio]Ordered By: Myron Sullivan on 05-22-2022 Erythrocyte distribution width (RBC) [Ratio] 12.7 % 11.9-15.3 [facility] Estimated glomerular filtrat ion rate (GFR) non- AmericanOrdered By: Myron Sullivan on 05-22-2022 GFR/1.73 sq M.predicted among non-blacks MDRD (S/P/Bld) [Vol rate/Area] > 60 mL/Min [facility] Globulin Calc (S) [Mass/Vol] Ordered By: Myron Sullivan on 05-22-2022 Globulin (S) [Mass/Vol] 3.3 g/dL [facility] Hematocrit Auto (Bld) [Volum e fraction]Ordered By: Myron Sullivan on 05-22-2022 Hematocrit (Bld) [Volume fraction] 30.1 % 34.0-46.4 [facility] Hemogram CBC Without Diffon 05-22-2022 Erythrocyte distribution width (RBC) [Ratio] 12.7 % Normal 11.9-15.3 [facility] Comment on above: Performed By: #### C BCNO, CMP, LIPASE, ADDONUAPLUS ####[address] Hematocrit (Bld) [Volume fraction] 30.1 % Low 34.0-46.4 [facility] Comment on above: Performed By: #### C BCNO, CMP, LIPASE, ADDONUAPLUS ####[address] Hemoglobin (Bld) [Mass/Vol] 10.2 g/dL Low 11.8-15.4 [facility] Comment on above: Performed By: #### C BCNO, CMP, LIPASE, ADDONUAPLUS ####[address] MCH (RBC) [Entitic mass] 29.7 pg Normal 24.7-34.3 [facility] Comment on above: Performed By: #### C BCNO, CMP, LIPASE, ADDONUAPLUS ####[address] MCV (RBC) [Entitic vol] 87.8 fL Normal 80-100 [facility] Comment on above: Performed By: #### C BCNO, CMP, LIPASE, ADDONUAPLUS ####[address] Mean Corpuscular HGB Conc 33.8 g/dL Normal 32.0-35.0 [facility] Comment on above: Performed By: #### C BCNO, CMP, LIPASE, ADDONUAPLUS ####[address] Platelet mean volume (Bld) [Entitic vol] 6.9 fL Normal 6.3-10.7 [facility] Comment on above: Result Comment: PERF ORMED BY: [facility] [address] [place] [address] PATHOLOGIST COMMUNITY DEVELOPMENT MANAGER SCARLETT MARIN M.D. Performed By: #### C BCNO, CMP, LIPASE, ADDONUAPLUS ####[address] Platelets (Bld) [#/Vol] 576 10*3/uL High 150-450 [facility] Comment on above: Performed By: #### C BCNO, CMP, LIPASE, ADDONUAPLUS ####[address] RBC (Bld) [#/Vol] 3.43 10*6/uL Low 3.60-5.00 [facility] Comment on above: Performed By: #### C BCNO, CMP, LIPASE, ADDONUAPLUS ####[facility] [id number] WBC (Bld) [#/Vol] 14.4 10*3/uL High 3.8-11.6 [facility] Comment on above: Performed By: #### C BCNO, CMP, LIPASE, ADDONUAPLUS ####[place] [id number] [address] Ketones Auto test strip (U) [Mass/Vol]Ordered By: Myron Sullivan on 05-22-2022 Ketones (U) [Mass/Vol] Negative Negative [facility] Laboratory - Chemistry and C hemistry - challengeOrdered By: Myron Sullivan on 05-22-2022 Lipase [Catalytic activity/Vol] 23.0 U/L [facility] - UrinalysisOrder ed By: Myron Sullivan on 05-22-2022 Hyaline casts LM Ql (Urine sed) 0-8 [LPF] 0-8 [facility] Lactic Acidon 05-22-2022 Lactate [Moles/Vol] 0.7 mmol/L Normal 0.5-2.2 [facility] Comment on above: Result Comment: PERF ORMED BY: [place] [address] PATHOLOGIST COMMUNITY DEVELOPMENT MANAGER SCARLETT MARIN M.D. Performed By: #### L ACTIC, CUBLD #### [facility] [address] Lipaseon 05-22-2022 Lipase [Catalytic activity/Vol] 23.0 U/L Normal [facility] Comment on above: Result Comment: PERF ORMED BY: [facility] [address] [place] [address] PATHOLOGIST COMMUNITY DEVELOPMENT MANAGER SCARLETT MARIN M.D. Performed By: #### C BCNO, CMP, LIPASE, ADDONUAPLUS ####[place] [id number] MCH Auto (RBC) [Entitic mass ]Ordered By: Myron Sullivan on 05-22-2022 MCH (RBC) [Entitic mass] 29.7 pg 24.7-34.3 [facility] MCHC Auto (RBC) [Mass/Vol]Or dered By: Myron Sullivan on 05-22-2022 MCHC (RBC) [Mass/Vol] 33.8 g/dL 32.0-35.0 [facility] MCV Auto (RBC) [Entitic vol] Ordered By: Myron Sullivan on 05-22-2022 MCV (RBC) [Entitic vol] 87.8 fL 80-100 [facility] Nitrite Test strip Ql (U)Ord ered By: Myron Sullivan on 05-22-2022 Nitrite Ql (U) Negative Negative [facility] No Panel InformationOrdered By: Myron Sullivan on 05-22-2022 Estimated GFR () > 60 mL/Min [facility] Comment on above: GFR estimated refere nce range: According to KDOQI guidelines, <60 ml/min/1.73m2 is sufficient to diagnose a patient with chronic kidney disease. Pharmacy Creatinine Clearance (Chem N/A [facility] No Panel InformationOrdered By: Brady Shaikh on 05-22-2022 SARS Antigen (LFIA) [facility] Platelet mean volume Auto (B ld) [Entitic vol]Ordered By: Myron Sullivan on 05-22-2022 Platelet mean volume (Bld) [Entitic vol] 6.9 fL 6.3-10.7 [facility] Platelets Auto (Bld) [#/Vol] Ordered By: Myron Sullivan on 05-22-2022 Platelets (Bld) [#/Vol] 576 10*3/uL 150-450 [facility] Protein Auto test strip (U) [Mass/Vol]Ordered By: Myron Sullivan on 05-22-2022 Protein (U) [Mass/Vol] Negative Negative [facility] Protein [Mass/volume] in Ser um or PlasmaOrdered By: Myron Sullivan on 05-22-2022 Protein [Mass/Vol] 6.5 g/dL 6.1-7.9 [facility] RBC Auto (Bld) [#/Vol]Ordere d By: Myron Sullivan on 05-22-2022 RBC (Bld) [#/Vol] 3.43 10*6/uL 3.60-5.00 [facility] Serum or plasma alanine kramer otransferase measurement without P-5'-P (enzymatic activiOrdered By: Myron Sullivan on 05-22-2022 ALT No additional P-5'-P [Catalytic activity/Vol] 22 U/L 10-60 [facility] Serum or plasma albumin/glob ulin mass ratioOrdered By: Myron Sullivan on 05-22-2022 Albumin/Globulin [Mass ratio] 1.0 {ratio} [facility] Serum or plasma alkaline rui sphatase measurement (enzymatic activity/volume)Ordered By: Myron Sullivan on 05-22-2022 ALP [Catalytic activity/Vol] 44 U/L 32-92 [facility] Serum or plasma aspartate am inotransferase measurement (enzymatic activity/volume)Ordered By: Myron Sullivan on 05-22-2022 AST [Catalytic activity/Vol] 19 U/L 10-42 [facility] Serum or plasma calcium pio urement (mass/volume)Ordered By: Myron Sullivan on 05-22-2022 Calcium [Mass/Vol] 9.2 mg/dL 8.2-10.2 [facility] Serum or plasma chloride mary surement (moles/volume)Ordered By: Myron Sullivan on 05-22-2022 Chloride [Moles/Vol] 104 mmol/L 95-[address] [facility] Serum or plasma glucose pio urement (mass/volume)Ordered By: Myron Sullivan on 05-22-2022 Glucose [Mass/Vol] 104 mg/dL 70-100 [facility] Comment on above: ADA recommended refe rence [...] on 05-22-2022 Sodium [Moles/Vol] 136 mmol/L 136-146 [facility] Serum or plasma total biliru bin measurement (mass/volume)Ordered By: Myron Sullivan on 05-22-2022 Bilirubin [Mass/Vol] 0.6 mg/dL 0.3-1.[address] [facility] Serum or plasma total carbon dioxide measurement (moles/volume)Ordered By: Myron Sullivan on 05-22-2022 CO2 [Moles/Vol] 23.0 mmol/L 22.0-30.0 [facility] Serum or plasma urea nitroge n measurement (mass/volume)Ordered By: Myron Sullivan on 05-22-2022 Urea nitrogen [Mass/Vol] 10 mg/dL 07-26 [facility] Janine Ag Negativeon 05-22-20 Janine Ag Negative Negative Normal Negative [facility] Comment on above: Result Comment: This is a duplicate Janine SARS Antigen (SHAQ) result to be used for statistical tracking purpose only. PERFORMED BY: [facility] [address] [place] [address] PATHOLOGIST COMMUNITY DEVELOPMENT MANAGER SCARLETT MARIN M.D. Performed By: #### C OVID-19 JANINE, SOFIANEG ####[facility] [place] [address] [facility] Specific gravity Auto test s trip (U) [Rel density]Ordered By: Myron Sullivan on 05-22-2022 Specific gravity (U) [Rel density] 1.016 1.001-1.030 [facility] Squamous epithelial cells de tection in urine sediment by light microscopyOrdered By: Myron Sullivan on 05-22-2022 Epithelial cells.squamous LM Ql (Urine sed) 5-9 [HPF] 0-2 [facility] Urine bacteria detection by automated methodOrdered By: Myron Sullivan on 05-22-2022 Bacteria Auto Ql (U) None seen None Seen [facility] Urine clarity by refractomet ry automatedOrdered By: Myron Sullivan on 05-22-2022 Clarity Refractometry automated (U) Clear Clear [facility] Urine glucose measurement by automated test strip (mass/volume)Ordered By: Myron Sullivan on 05-22-2022 Glucose Auto test strip (U) [Mass/Vol] Normal mg/dL Normal [facility] Urine hemoglobin detection b y automated test stripOrdered By: Myron Sullivan on 05-22-2022 Hemoglobin Auto test strip Ql (U) 2+ Negative [facility] Urine lactic acid measuremen tOrdered By: Brady Shaikh on 05-22-2022 Lactate (U) [Moles/Vol] 0.7 mmol/L 0.5-2.2 [facility] Urine leukocyte esterase det ection by automated test stripOrdered By: Myron Sullivan on 05-22-2022 Leukocyte esterase Auto test strip Ql (U) Negative Negative [facility] Urobilinogen Auto test strip (U) [Mass/Vol]Ordered By: Myron Sullivan on 05-22-2022 Urobilinogen (U) [Mass/Vol] Normal mg/dL Normal [facility] WBC Auto (Bld) [#/Vol]Ordere d By: Myron Sullivan on 05-22-2022 WBC (Bld) [#/Vol] 14.4 10*3/uL 3.8-11.6 [facility] pH Auto test strip (U)Ordere d By: Myron Sullivan on 05-22-2022 pH (U) 5.5 [pH] 5.0-9.0 [facility] Albumin [Mass/volume] in Ser um or PlasmaOrdered By: PRATEEK HICKS on 05-15-2022 Albumin [Mass/Vol] 3.0 g/dL 3.2-5.5 [facility] Basophils Auto (Bld) [#/Vol] Ordered By: PRATEEK HICKS on 05-15-2022 Basophils (Bld) [#/Vol] 0.1 10*3/uL 0.0-0.2 [facility] Basophils/100 WBC Auto (Bld) Ordered By: PRATEEK HICKS on 05-15-2022 Basophils/100 WBC (Bld) 0.5 % . [facility] Blood hemoglobin measurement (mass/volume)Ordered By: PRATEEK HICKS on 05-15-2022 Hemoglobin (Bld) [Mass/Vol] 9.2 g/dL 11.8-15.4 [facility] Blood leukocytes automated c ount (number/volume)Ordered By: PRATEEK HICKS on 05-15-2022 WBC (Bld) [#/Vol] 11.2 10*3/uL 4.5-11.0 [facility] Complete Blood Count Auto Di ffon 05-15-2022 Basophils (Bld) [#/Vol] 0.1 10*3/uL Normal 0.0-0.2 [facility] Comment on above: Result Comment: PERF ORMED BY: [facility] [address] [place] [address] PATHOLOGIST COMMUNITY DEVELOPMENT MANAGER SCARLETT MARIN M.D. Performed By: #### C BC, CMP ####[place] [id number] [facility] Basophils/100 WBC (Bld) 0.5 % Normal . [facility] Comment on above: Performed By: #### C BC, CMP ####[place] [id number] [facility] Eosinophils (Bld) [#/Vol] 0.4 10*3/uL Normal 0.0-0.45 [facility] Comment on above: Performed By: #### C BC, CMP ####[place] [id number] [facility] Eosinophils/100 WBC (Bld) 3.7 % Normal . [facility] Comment on above: Performed By: #### C BC, CMP ####[place] [id number] [facility] Erythrocyte distribution width (RBC) [Ratio] 13.2 % Normal 11.9-15.3 [facility] Comment on above: Performed By: #### C BC, CMP ####[place] [id number] [facility] Hematocrit (Bld) [Volume fraction] 27.1 % Low 34.0-46.4 [facility] Comment on above: Performed By: #### C BC, CMP ####[place] [id number] [facility] Hemoglobin (Bld) [Mass/Vol] 9.2 g/dL Low 11.8-15.4 [facility] Comment on above: Performed By: #### C BC, CMP ####[place] [id number] [place] Lymphocytes (Bld) [#/Vol] 2.3 10*3/uL Normal 1.00-4.8 [facility] Comment on above: Performed By: #### C JOSE JUAN, CMP ####[address] Lymphocytes/100 WBC (Bld) 20.4 % Normal . [facility] Comment on above: Performed By: #### C BC, CMP ####[address] MCH (RBC) [Entitic mass] 30.2 pg Normal 24.7-34.3 [facility] Comment on above: Performed By: #### C JOSE JUAN, CMP ####[address] MCV (RBC) [Entitic vol] 89.2 fL Normal 80-100 [facility] Comment on above: Performed By: #### C JOSE JUAN, CMP ####[address] Mean Corpuscular HGB Conc 33.9 g/dL Normal 32.0-35.0 [facility] Comment on above: Performed By: #### C JOSE JUAN, CMP ####[address] Monocytes (Bld) [#/Vol] 0.7 10*3/uL Normal 0.0-0.8 [facility] Comment on above: Performed By: #### C JOSE JUAN, CMP ####[address] Monocytes/100 WBC (Bld) 6.2 % Normal . [facility] Comment on above: Performed By: #### C BC, CMP ####[address] Neutrophils (Bld) [#/Vol] 7.7 10*3/uL Normal 1.8-7.7 [facility] Comment on above: Performed By: #### C BC, CMP ####[address] [address] [facility] Neutrophils/100 WBC (Bld) 69.2 % Normal . [facility] Comment on above: Performed By: #### C JOSE JUAN, CMP ####[place] [id number] [facility] Nucleated RBC/100 WBC (Bld) [Ratio] 0.0 % Normal 0-0.5 [facility] Comment on above: Performed By: #### C JOSE JUAN, CMP ####[place] [id number] [facility] Platelet mean volume (Bld) [Entitic vol] 7.2 fL Normal 6.3-10.7 [facility] Comment on above: Performed By: #### C JOSE JUAN, CMP ####[place] [id number] [facility] Platelets (Bld) [#/Vol] 371 10*3/uL Normal 150-450 [facility] Comment on above: Performed By: #### C JOSE JUAN, CMP ####[address] RBC (Bld) [#/Vol] 3.04 10*6/uL Low 3.60-5.00 [facility] Comment on above: Performed By: #### C JOSE JUAN, CMP ####[place] [id number] [facility] WBC (Bld) [#/Vol] 11.2 10*3/uL High 4.5-11.0 [facility] Comment on above: Performed By: #### C BC, CMP ####[place] [id number] [facility] Comprehensive Metabolic Pane zen 05-15-2022 Albumin [Mass/Vol] 3.0 g/dL Low 3.2-5.5 [facility] Comment on above: Performed By: #### C BC, CMP ####[place] [id number] [facility] Albumin/Globulin [Mass ratio] 1.1 {ratio} Normal [facility] Comment on above: Performed By: #### C BC, CMP ####[facility] [place] [address] [facility] ALP [Catalytic activity/Vol] 30 U/L Low 32-92 [facility] Comment on above: Performed By: #### C BC, CMP ####[facility] [place] [address] [facility] ALT [Catalytic activity/Vol] 16 U/L Normal 10-60 [facility] Comment on above: Performed By: #### C BC, CMP ####[place] [id number] [place] [address] [facility] AST [Catalytic activity/Vol] 17 U/L Normal 10-42 [facility] Comment on above: Performed By: #### C BC, CMP ####[address] [address] [facility] Bilirubin [Mass/Vol] 0.7 mg/dL Normal 0.3-1.[address] [facility] Comment on above: Performed By: #### C BC, CMP ####[address] [address] [facility] Calcium [Mass/Vol] 8.5 mg/dL Normal 8.2-10.2 [facility] Comment on above: Performed By: #### C BC, CMP ####[address] [address] [facility] Chloride [Moles/Vol] 105 mmol/L Normal 95-[address] [facility] Comment on above: Performed By: #### C BC, CMP ####[address] [address] [facility] CO2 [Moles/Vol] 25.8 mmol/L Normal 22.0-30.0 [facility] Comment on above: Performed By: #### C BC, CMP ####[address] [address] [facility] Creatinine [Mass/Vol] 0.46 mg/dL Normal 0.44-1.03 [facility] Comment on above: Performed By: #### C BC, CMP ####[address] [address] [facility] Creatinine Clr Calc Pharmacy 159.66 [facility] Comment on above: Result Comment: PERF ORMED BY: [facility] [address] [place] [address] PATHOLOGIST COMMUNITY DEVELOPMENT MANAGER SCARLETT MARIN M.D. Performed By: #### C BC, CMP ####[place] [id number] [facility] Estimated GFR ( Padmini > 60 [facility] Comment on above: Result Comment: GFR estimated reference range: According to KDOQI guidelines, <60 ml/min/1.73m2 is sufficient to diagnose a patient with chronic kidney disease. Performed By: #### C BC, CMP ####[address] Estimated GFR (Non- Am > 60 [facility] Comment on above: Performed By: #### C BC, CMP ####[address] Globulin (S) [Mass/Vol] 2.7 g/dL [facility] Comment on above: Performed By: #### C BC, CMP ####[place] [id number] [facility] Glucose [Mass/Vol] 91 mg/dL Normal 70-100 [facility] Comment on above: Result Comment: [place] Glucose Reference Range is dependent on time and content of last meal. Glucose of more than 200 mg/dL in a nonstressed, ambulatory subject supports the diagnosis of Diabetes Mellitus. ADA recommended reference range Performed By: #### C BC, CMP ####[place] [id number] [facility] Potassium [Moles/Vol] 3.4 mmol/L Low 3.5-5.1 [facility] Comment on above: Performed By: #### C BC, CMP ####[place] [id number] [facility] Protein [Mass/Vol] 5.7 g/dL Low 6.1-7.9 [facility] Comment on above: Performed By: #### C BC, CMP ####[facility] [id number] [place] [address] [facility] Sodium [Moles/Vol] 137 mmol/L Normal 136-146 [facility] Comment on above: Performed By: #### C BC, CMP ####[facility] [id number] [place] [address] [facility] Urea nitrogen [Mass/Vol] 6 mg/dL Low 9-23 [facility] Comment on above: Performed By: #### C BC, CMP ####[facility] [id number] [place] [address] [facility] Creatinine and Glomerular fi ltration rate.predicted panel (S/P/Bld)Ordered By: PRATEEK HICKS on 05-15-2022 Creatinine [Mass/Vol] 0.46 mg/dL 0.44-1.03 [facility] Eosinophils Auto (Bld) [#/Vo l]Ordered By: PRATEEK HICKS on 05-15-2022 Eosinophils (Bld) [#/Vol] 0.4 10*3/uL 0.0-0.45 [facility] Eosinophils/100 WBC Auto (Bl d)Ordered By: PRATEEK HICKS on 05-15-2022 Eosinophils/100 WBC (Bld) 3.7 % . [facility] Erythrocyte distribution wid th Auto (RBC) [Ratio]Ordered By: PRATEEK HICKS on 05-15-2022 Erythrocyte distribution width (RBC) [Ratio] 13.2 % 11.9-15.3 [facility] Estimated glomerular filtrat ion rate (GFR) non- AmericanOrdered By: PRATEEK HICKS on 05-15-2022 GFR/1.73 sq M.predicted among non-blacks MDRD (S/P/Bld) [Vol rate/Area] > 60 mL/Min [facility] Globulin Calc (S) [Mass/Vol] Ordered By: PRATEEK HICKS on 05-15-2022 Globulin (S) [Mass/Vol] 2.7 g/dL [facility] Hematocrit Auto (Bld) [Volum e fraction]Ordered By: PRATEEK HICKS on 05-15-2022 Hematocrit (Bld) [Volume fraction] 27.1 % 34.0-46.4 [facility] Laboratory - Hematology and Cell countsOrdered By: PRATEEK HICKS on 05-15-2022 Nucleated RBC/100 WBC (Bld) [Ratio] 0.0 % 0-0.5 [facility] Lymphocytes Auto (Bld) [#/Vo l]Ordered By: PRATEEK HICKS on 05-15-2022 Lymphocytes (Bld) [#/Vol] 2.3 10*3/uL 1.00-4.8 [facility] Lymphocytes/100 WBC Auto (Bl d)Ordered By: PRATEEK HICKS on 05-15-2022 Lymphocytes/100 WBC (Bld) 20.4 % . [facility] MCH Auto (RBC) [Entitic mass ]Ordered By: PRATEEK HICKS on 05-15-2022 MCH (RBC) [Entitic mass] 30.2 pg 24.7-34.3 [facility] MCHC Auto (RBC) [Mass/Vol]Or dered By: PRATEEK HICKS on 05-15-2022 MCHC (RBC) [Mass/Vol] 33.9 g/dL 32.0-35.0 [facility] MCV Auto (RBC) [Entitic vol] Ordered By: PRATEEK HICKS on 05-15-2022 MCV (RBC) [Entitic vol] 89.2 fL 80-100 [facility] Monocytes Auto (Bld) [#/Vol] Ordered By: PRATEEK HICKS on 05-15-2022 Monocytes (Bld) [#/Vol] 0.7 10*3/uL 0.0-0.8 [facility] Monocytes/100 WBC Auto (Bld) Ordered By: PRATEEK HICKS on 05-15-2022 Monocytes/100 WBC (Bld) 6.2 % . [facility] Neutrophils Auto (Bld) [#/Vo l]Ordered By: PRATEEK HICKS on 05-15-2022 Neutrophils (Bld) [#/Vol] 7.7 10*3/uL 1.8-7.7 [facility] Neutrophils/100 WBC Auto (Bl d)Ordered By: PRATEEK HICKS on 05-15-2022 Neutrophils/100 WBC (Bld) 69.2 % . [facility] No Panel InformationOrdered By: PRATEEK HICKS on 05-15-2022 Estimated GFR () > 60 mL/Min [facility] Comment on above: GFR estimated refere nce range: According to KDOQI guidelines, <60 ml/min/1.73m2 is sufficient to diagnose a patient with chronic kidney disease. Pharmacy Creatinine Clearance (Chem 159.66 [facility] Platelet mean volume Auto (B ld) [Entitic vol]Ordered By: PRATEEK HICKS on 05-15-2022 Platelet mean volume (Bld) [Entitic vol] 7.2 fL 6.3-10.7 [facility] Platelets Auto (Bld) [#/Vol] Ordered By: PRATEEK HICKS on 05-15-2022 Platelets (Bld) [#/Vol] 371 10*3/uL 150-450 [facility] Protein [Mass/volume] in Ser um or PlasmaOrdered By: PRATEEK HICKS on 05-15-2022 Protein [Mass/Vol] 5.7 g/dL 6.1-7.9 [facility] RBC Auto (Bld) [#/Vol]Ordere d By: PRATEEK HICKS on 05-15-2022 RBC (Bld) [#/Vol] 3.04 10*6/uL 3.60-5.00 [facility] Serum or plasma alanine kramer otransferase measurement without P-5'-P (enzymatic activiOrdered By: PRATEEK HICKS on 05-15-2022 ALT No additional P-5'-P [Catalytic activity/Vol] 16 U/L 10-60 [facility] Serum or plasma albumin/glob ulin mass ratioOrdered By: PRATEEK HICKS on 05-15-2022 Albumin/Globulin [Mass ratio] 1.1 {ratio} [facility] Serum or plasma alkaline rui sphatase measurement (enzymatic activity/volume)Ordered By: PRATEEK HICKS on 05-15-2022 ALP [Catalytic activity/Vol] 30 U/L 32-92 [facility] Serum or plasma aspartate am inotransferase measurement (enzymatic activity/volume)Ordered By: PRATEEK HICKS on 05-15-2022 AST [Catalytic activity/Vol] 17 U/L 10-42 [facility] Serum or plasma calcium pio urement (mass/volume)Ordered By: PRATEEK HICKS on 05-15-2022 Calcium [Mass/Vol] 8.5 mg/dL 8.2-10.2 [facility] Serum or plasma chloride mary surement (moles/volume)Ordered By: PRATEEK HICKS on 05-15-2022 Chloride [Moles/Vol] 105 mmol/L 95-[address] [facility] Serum or plasma glucose pio urement (mass/volume)Ordered By: PRATEEK HICKS on 05-15-2022 Glucose [Mass/Vol] 91 mg/dL 70-100 [facility] Comment on above: ADA recommended refe rence [...] on 05-15-2022 Sodium [Moles/Vol] 137 mmol/L 136-146 [facility] Serum or plasma total biliru bin measurement (mass/volume)Ordered By: PRATEEK HICKS on 05-15-2022 Bilirubin [Mass/Vol] 0.7 mg/dL 0.3-1.[address] [facility] Serum or plasma total carbon dioxide measurement (moles/volume)Ordered By: PRATEEK HICKS on 05-15-2022 CO2 [Moles/Vol] 25.8 mmol/L 22.0-30.0 [facility] Serum or plasma urea nitroge n measurement (mass/volume)Ordered By: PRATEEK HICKS on 05-15-2022 Urea nitrogen [Mass/Vol] 6 mg/dL 9- [facility] XR acute abdomen serieson XR acute abdomen series [facility] Main [address] [address] XRay Report Signed Patient: Tootie Nicole MR#: [id number] 0 : 1975 Acct:[id number] Age/Sex: 46 / F ADM Date: 05/13/22 Loc: Room: [address] [place] [address] Type: ADM IN Attending Dr: Prateek Hicks [...] Yajaira Goodson M.D.05/15/2022 8:27 AM Dictation Location: [place] [address] Transcribed By: [facility] 05/15/22826 Dictated By: Yajaira Goodson II, MD 05/15/22821 Signed By: 05/15/22826 Normal [facility] Complete Blood Count Auto Di ffon 05-14-2022 Basophils (Bld) [#/Vol] 0.0 10*3/uL Normal 0.0-0.2 [facility] Comment on above: Result Comment: PERF ORMED BY: [facility] [address] [place] [address] PATHOLOGIST COMMUNITY DEVELOPMENT MANAGER SCARLETT MARIN M.D. Performed By: #### C BC ####[place] [id number] [place] [id number] [place] Basophils/100 WBC (Bld) 0.3 % Normal . [facility] Comment on above: Performed By: #### C BC ####[facility] [place] [address] [facility] Eosinophils (Bld) [#/Vol] 0.0 10*3/uL Normal 0.0-0.45 [facility] Comment on above: Performed By: #### C BC ####[address] Eosinophils/100 WBC (Bld) 0.3 % Normal . [facility] Comment on above: Performed By: #### C BC ####[address] Erythrocyte distribution width (RBC) [Ratio] 12.9 % Normal 11.9-15.3 [facility] Comment on above: Performed By: #### C BC ####[address] Hematocrit (Bld) [Volume fraction] 30.0 % Low 34.0-46.4 [facility] Comment on above: Performed By: #### C BC ####[address] Hemoglobin (Bld) [Mass/Vol] 9.8 g/dL Low 11.8-15.4 [facility] Comment on above: Performed By: #### C BC ####[address] Lymphocytes (Bld) [#/Vol] 1.9 10*3/uL Normal 1.00-4.8 [facility] Comment on above: Performed By: #### C BC ####[address] Lymphocytes/100 WBC (Bld) 13.6 % Normal . [facility] Comment on above: Performed By: #### C BC ####[place] [id number] [facility] MCH (RBC) [Entitic mass] 29.3 pg Normal 24.7-34.3 [facility] Comment on above: Performed By: #### C BC ####[place] [id number] [facility] MCV (RBC) [Entitic vol] 89.3 fL Normal 80-100 [facility] Comment on above: Performed By: #### C BC ####[place] [place] [address] [facility] Mean Corpuscular HGB Conc 32.8 g/dL Normal 32.0-35.0 [facility] Comment on above: Performed By: #### C BC ####[address] [address] [facility] Monocytes (Bld) [#/Vol] 0.9 10*3/uL High 0.0-0.8 [facility] Comment on above: Performed By: #### C BC ####[address] [address] [facility] Monocytes/100 WBC (Bld) 6.3 % Normal . [facility] Comment on above: Performed By: #### C BC ####[address] [address] [facility] Neutrophils (Bld) [#/Vol] 11.2 10*3/uL High 1.8-7.7 [facility] Comment on above: Performed By: #### C BC ####[address] [address] [facility] Neutrophils/100 WBC (Bld) 79.5 % Normal . [facility] Comment on above: Performed By: #### C BC ####[address] [address] [facility] Nucleated RBC/100 WBC (Bld) [Ratio] 0.1 % Normal 0-0.5 [facility] Comment on above: Performed By: #### C BC ####[address] [address] [facility] Platelet mean volume (Bld) [Entitic vol] 7.5 fL Normal 6.3-10.7 [facility] Comment on above: Performed By: #### C BC ####[address] [address] [facility] Platelets (Bld) [#/Vol] 366 10*3/uL Normal 150-450 [facility] Comment on above: Performed By: #### C BC ####[place] [address] [place] [id number] [facility] RBC (Bld) [#/Vol] 3.36 10*6/uL Low 3.60-5.00 [facility] Comment on above: Performed By: #### C BC ####[place] [address] [place] [id number] [facility] WBC (Bld) [#/Vol] 14.1 10*3/uL High 4.5-11.0 [facility] Comment on above: Performed By: #### C BC ####[place] [id number] HCG ( test) IA.jenny d Ql (U)Ordered By: VARUN ZABALA on 05-13-2022 HCG ( test) Ql (U) Negative [facility] HCG,Urineon 05-13-2022 Beta HCG ( test) Ql (U) Negative Normal [facility] Comment on above: Result Comment: PERF ORMED BY: [place] [address] PATHOLOGIST COMMUNITY DEVELOPMENT MANAGER SCARLETT MARIN M.D. Performed By: #### U HCG #### [address] Zen 05-13-2022 L Specimen: [id number] Received: 05/13/22 Status: TIA Ricketts Num: [id number] Spec Type: Surgical Subm Dr: PRATEEK HICKS MD Tissues: A Uterus w/ or w/o tubes ovaries except neoplastic or prolap (CERVIX, ISABEL TU Procedures: HE Stain/7, Gross/Micro L5 Patient Age/Sex Location Account Attending Physician Tootie Nicole 46/F 3S [id number] PRATEEK HICKS MD SPEC NUM: [id number] RECD: 05/13/22 STATUS: TIA RICKETTS NUM: [id number] ANGELES: 05/13/22- [facility] DR: PRATEEK HICKS MD ENTERED: 05/13/22 [facility] DR: BAKARI TYPE: Surgical DEPT: S [...] has a rubbery, ann-peacock, focally hemorrhagic Specimen: [id number] Received: 05/13/22 Status: TIA Ricketts Num: [id number] Spec Type: Surgical Subm Dr: PRATEEK HICKS MD Tissues: A Uterus w/ or w/o tubes ovaries except neoplastic or prolap (CERVIX, ISABEL TU Procedures: HE Stain/7, Gross/Micro L5 Patient: Tootie Nicole [id number] (Continued) Specimen: [id number] Received: 05/13/22 (Continued) Gross Description (Continued) Signed (signature on file) Adry Vieyra MD 05/14/22 1528 Specimen: [id number] Received: 05/13/22 Status: TIA Ricketts Num: [id number] Spec Type: Surgical Subm Dr: PRATEEK HICKS MD Tissues: A Uterus w/ or w/o tubes ovaries except neoplastic or prolap (CERVIX, ISABEL TU Procedures: NERI Stain/7, Gross/Micro L5 Patient: Tootie Nicole [id number] (Continued) Specimen: [id number] Received: 05/13/22-1054 (Continued) Gross Description (Continued) cut surface. The [...] support the above pathologic diagnosis. CPT Codes 24957 --------- (more content not included)... 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 This test has not been FDA cleared [...] is terminated or revoked sooner. PERFORMED BY: [address] [place] [id number] PATHOLOGIST COMMUNITY DEVELOPMENT MANAGER SCARLETT MARIN M.D. Performed By: #### C OVID 19 [facility] #### [address] COVID-19 Positive/NegativeOr dered By: Gaurav Marr on 05-09-2022 SARS-CoV-2 (COVID-19) N gene KATE+probe Ql (Resp) Negative Negative [facility] Comment on above: Testing for SARS-CoV -2 by RT-PCR This test was developed and its performance characteristics determined by [employer], [employer] ([employer]) and validated at the [facility]. This test has not been FDA cleared [...] terminated or revoked sooner. Basic Metabolic Panelon 04-04 Calcium [Mass/Vol] 9.4 mg/dL Normal 8.2-10.2 [facility] Comment on above: Result Comment: PERF ORMED BY: [facility] [address] [place] [address] PATHOLOGIST COMMUNITY DEVELOPMENT MANAGER SCARLETT MARIN M.D. Performed By: #### C BC, [facility] #### [facility] [address] Chloride [Moles/Vol] 101 mmol/L Normal 95-[address] [facility] Comment on above: Performed By: #### C BC, BMP #### [facility] [address] CO2 [Moles/Vol] 25.4 mmol/L Normal 22.0-30.0 [facility] Comment on above: Performed By: #### C BC, BMP #### [facility] [address] Creatinine [Mass/Vol] 0.57 mg/dL Normal 0.44-1.03 [facility] Comment on above: Performed By: #### C BC, BMP #### [address] Estimated GFR ( Padmini > 60 [facility] Comment on above: Result Comment: GFR estimated reference range: According to KDOQI guidelines, <60 ml/min/1.73m2 is sufficient to diagnose a patient with chronic kidney disease. Performed By: #### C BC, BMP #### [address] Estimated GFR (Non- Am > 60 [facility] Comment on above: Performed By: #### C BC, BMP #### [address] Glucose [Mass/Vol] 89 mg/dL Normal 70-100 [facility] Comment on above: Result Comment: [place] Glucose Reference Range is dependent on time and content of last meal. Glucose of more than 200 mg/dL in a nonstressed, ambulatory subject supports the diagnosis of Diabetes Mellitus. ADA recommended reference range Performed By: #### C BC, BMP #### [facility] [address] [place] [address] [place] Potassium [Moles/Vol] 4.2 mmol/L Normal 3.5-5.1 [facility] Comment on above: Performed By: #### C BC, BMP #### [place] [address] [place] Sodium [Moles/Vol] 135 mmol/L Low 136-146 [facility] Comment on above: Performed By: #### C JOSE JUAN, BMP #### [facility] [address] [place] [address] Urea nitrogen [Mass/Vol] 9 mg/dL Normal 9-23 [facility] Comment on above: Performed By: #### C JOSE JUAN, BMP #### [facility] [address] Basophils Auto (Bld) [#/Vol] Ordered By: PRATEEK HICKS on 04-29-2022 Basophils (Bld) [#/Vol] 0.1 10*3/uL 0.0-0.2 [facility] Basophils/100 WBC Auto (Bld) Ordered By: PRATEEK HICKS on 04-29-2022 Basophils/100 WBC (Bld) 0.8 % . [facility] Blood hemoglobin measurement (mass/volume)Ordered By: PRATEEK HICKS on 04-29-2022 Hemoglobin (Bld) [Mass/Vol] 13.2 g/dL 11.8-15.4 [facility] Blood leukocytes automated c ount (number/volume)Ordered By: PRATEEK HICKS on 04-29-2022 WBC (Bld) [#/Vol] 8.9 10*3/uL 4.5-11.0 [facility] Complete Blood Count Auto Di ffon 04-29-2022 Basophils (Bld) [#/Vol] 0.1 10*3/uL Normal 0.0-0.2 [facility] Comment on above: Result Comment: PERF ORMED BY: [place] [address] PATHOLOGIST COMMUNITY DEVELOPMENT MANAGER SCARLETT MARIN M.D. Performed By: #### C JOSE JUAN, BMP #### [address] Basophils/100 WBC (Bld) 0.8 % Normal . [facility] Comment on above: Performed By: #### C JOSE JUAN, BMP #### [address] Eosinophils (Bld) [#/Vol] 0.3 10*3/uL Normal 0.0-0.45 [facility] Comment on above: Performed By: #### C BC, BMP #### [address] Eosinophils/100 WBC (Bld) 3.3 % Normal . [facility] Comment on above: Performed By: #### C BC, BMP #### [address] Erythrocyte distribution width (RBC) [Ratio] 13.5 % Normal 11.9-15.3 [facility] Comment on above: Performed By: #### C BC, BMP #### [address] Hematocrit (Bld) [Volume fraction] 38.9 % Normal 34.0-46.4 [facility] Comment on above: Performed By: #### C BC, BMP #### [address] Hemoglobin (Bld) [Mass/Vol] 13.2 g/dL Normal 11.8-15.4 [facility] Comment on above: Performed By: #### C BC, BMP #### [address] Lymphocytes (Bld) [#/Vol] 2.0 10*3/uL Normal 1.00-4.8 [facility] Comment on above: Performed By: #### C BC, BMP #### [address] Lymphocytes/100 WBC (Bld) 22.7 % Normal . [facility] Comment on above: Performed By: #### C BC, BMP #### [address] MCH (RBC) [Entitic mass] 29.6 pg Normal 24.7-34.3 [facility] Comment on above: Performed By: #### C BC, BMP #### [address] MCV (RBC) [Entitic vol] 87.7 fL Normal 80-100 [facility] Comment on above: Performed By: #### C BC, BMP #### [facility] [address] Mean Corpuscular HGB Conc 33.8 g/dL Normal 32.0-35.0 [facility] Comment on above: Performed By: #### C BC, BMP #### [facility] [address] Monocytes (Bld) [#/Vol] 0.5 10*3/uL Normal 0.0-0.8 [facility] Comment on above: Performed By: #### C BC, BMP #### [address] Monocytes/100 WBC (Bld) 5.4 % Normal . [facility] Comment on above: Performed By: #### C BC, BMP #### [address] Neutrophils (Bld) [#/Vol] 6.1 10*3/uL Normal 1.8-7.7 [facility] Comment on above: Performed By: #### C BC, BMP #### [address] Neutrophils/100 WBC (Bld) 67.8 % Normal . [facility] Comment on above: Performed By: #### C BC, BMP #### [address] Nucleated RBC/100 WBC (Bld) [Ratio] 0.1 % Normal 0-0.5 [facility] Comment on above: Performed By: #### C BC, BMP #### [address] Platelet mean volume (Bld) [Entitic vol] 7.6 fL Normal 6.3-10.7 [facility] Comment on above: Performed By: #### C BC, BMP #### [address] Platelets (Bld) [#/Vol] 353 10*3/uL Normal 150-450 [facility] Comment on above: Performed By: #### C BC, BMP #### [facility] [address] RBC (Bld) [#/Vol] 4.44 10*6/uL Normal 3.60-5.00 [facility] Comment on above: Performed By: #### C BC, BMP #### [facility] [address] WBC (Bld) [#/Vol] 8.9 10*3/uL Normal 4.5-11.0 [facility] Comment on above: Performed By: #### C JOSE JUAN, BMP #### [facility] [address] Creatinine and Glomerular fi ltration rate.predicted panel (S/P/Bld)Ordered By: PRATEEK HICKS on 04-29-2022 Creatinine [Mass/Vol] 0.57 mg/dL 0.44-1.03 [facility] ECG 12 lead ECGon 04-29-2022 ECG 12 lead ECG [facility] Main [place] [address] [place] [address] Electrocardiograph Report Signed Patient: Tootie Nicole MR#: [id number] 0 : 1975 Acct:[id number] Age/Sex: 46 / F ADM Date: 04/29/22 Loc: Room: Type: [facility] Attending Dr: Prateek Hicks MD Ordering [...] By Romeo Taylor DO 04/29 180 Normal [facility] Eosinophils Auto (Bld) [#/Vo l]Ordered By: PRATEEK HICKS on 04-29-2022 Eosinophils (Bld) [#/Vol] 0.3 10*3/uL 0.0-0.45 [facility] Eosinophils/100 WBC Auto (Bl d)Ordered By: PRATEEK HICKS on 04-29-2022 Eosinophils/100 WBC (Bld) 3.3 % . [facility] Erythrocyte distribution wid th Auto (RBC) [Ratio]Ordered By: PRATEEK HICKS on 04-29-2022 Erythrocyte distribution width (RBC) [Ratio] 13.5 % 11.9-15.3 [facility] Estimated glomerular filtrat ion rate (GFR) non- AmericanOrdered By: PRATEEK HICKS on 04-29-2022 GFR/1.73 sq M.predicted among non-blacks MDRD (S/P/Bld) [Vol rate/Area] > 60 mL/Min [facility] Hematocrit Auto (Bld) [Volum e fraction]Ordered By: PRATEEK HICKS on 04-29-2022 Hematocrit (Bld) [Volume fraction] 38.9 % 34.0-46.4 [facility] Laboratory - Hematology and Cell countsOrdered By: PRATEEK HICKS on 04-29-2022 Nucleated RBC/100 WBC (Bld) [Ratio] 0.1 % 0-0.5 [facility] Lymphocytes Auto (Bld) [#/Vo l]Ordered By: PRATEEK HICKS on 04-29-2022 Lymphocytes (Bld) [#/Vol] 2.0 10*3/uL 1.00-4.8 [facility] Lymphocytes/100 WBC Auto (Bl d)Ordered By: PRATEEK HICKS on 04-29-2022 Lymphocytes/100 WBC (Bld) 22.7 % . [facility] MCH Auto (RBC) [Entitic mass ]Ordered By: PRATEEK IHCKS on 04-29-2022 MCH (RBC) [Entitic mass] 29.6 pg 24.7-34.3 [facility] MCHC Auto (RBC) [Mass/Vol]Or dered By: PRATEEK HICKS on 04-29-2022 MCHC (RBC) [Mass/Vol] 33.8 g/dL 32.0-35.0 [facility] MCV Auto (RBC) [Entitic vol] Ordered By: PRATEEK HICKS on 04-29-2022 MCV (RBC) [Entitic vol] 87.7 fL 80-100 [facility] Monocytes Auto (Bld) [#/Vol] Ordered By: PRATEEK HICKS on 04-29-2022 Monocytes (Bld) [#/Vol] 0.5 10*3/uL 0.0-0.8 [facility] Monocytes/100 WBC Auto (Bld) Ordered By: PRATEEK HICKS on 04-29-2022 Monocytes/100 WBC (Bld) 5.4 % . [facility] Neutrophils Auto (Bld) [#/Vo l]Ordered By: PRATEEK HICKS on 04-29-2022 Neutrophils (Bld) [#/Vol] 6.1 10*3/uL 1.8-7.7 [facility] Neutrophils/100 WBC Auto (Bl d)Ordered By: PRATEEK HICKS on 04-29-2022 Neutrophils/100 WBC (Bld) 67.8 % . [facility] No Panel InformationOrdered By: PRATEEK HICKS on 04-29-2022 Estimated GFR () > 60 mL/Min [facility] Comment on above: GFR estimated refere nce range: According to KDOQI guidelines, <60 ml/min/1.73m2 is sufficient to diagnose a patient with chronic kidney disease. Pharmacy Creatinine Clearance (Chem N/A [facility] Platelet mean volume Auto (B ld) [Entitic vol]Ordered By: PRATEEK HICKS on 04-29-2022 Platelet mean volume (Bld) [Entitic vol] 7.6 fL 6.3-10.7 [facility] Platelets Auto (Bld) [#/Vol] Ordered By: PRATEEK HICKS on 04-29-2022 Platelets (Bld) [#/Vol] 353 10*3/uL 150-450 [facility] RBC Auto (Bld) [#/Vol]Ordere d By: PRATEEK HICKS on 04-29-2022 RBC (Bld) [#/Vol] 4.44 10*6/uL 3.60-5.00 [facility] Serum or plasma calcium pio urement (mass/volume)Ordered By: PRATEEK HICKS on 04-29-2022 Calcium [Mass/Vol] 9.4 mg/dL 8.2-10.2 [facility] Serum or plasma chloride mary surement (moles/volume)Ordered By: PRATEEK HICKS on 04-29-2022 Chloride [Moles/Vol] 101 mmol/L 95-[address] [facility] Serum or plasma glucose pio urement (mass/volume)Ordered By: PRATEEK HICKS on 04-29-2022 Glucose [Mass/Vol] 89 mg/dL 70-100 [facility] Comment on above: ADA recommended refe rence [...] on 04-29-2022 Sodium [Moles/Vol] 135 mmol/L 136-146 [facility] Serum or plasma total carbon dioxide measurement (moles/volume)Ordered By: PRATEEK HICKS on 04-29-2022 CO2 [Moles/Vol] 25.4 mmol/L 22.0-30.0 [facility] Serum or plasma urea nitroge n measurement (mass/volume)Ordered By: PRATEEK HICKS on 04-29-2022 Urea nitrogen [Mass/Vol] 9 mg/dL 07-26 [facility] Vital Signs Date Time Vital Sign Value Performing Clinician Facility 09-08-2024 11:28-0500 Blood Pressure Location Romeo Chaidez [facility] 09-08-2024 11:28-0500 Diastolic blood pressure 84 mm[Hg] [facility] 09-08-2024 11:28-0500 Heart rate 79 /min [facility] 09-08-2024 11:28-0500 SaO2% (BldA) [Mass fraction] 98 % [facility] 09-08-2024 11:28-0500 Systolic blood pressure 128 mm[Hg] [facility] 08-19-2024 10:00-0400 Diastolic blood pressure 84 mm[Hg] Lisa Mauricio DO Work Phone: [facility] 08-19-2024 10:00-0400 Heart rate 88 /min Lisa Mauricio DO Work Phone: [facility] 08-19-2024 10:00-0400 SaO2% (BldA) [Mass fraction] 97 % Lisa Mauricio DO Work Phone: [facility] 08-19-2024 10:00-0400 Systolic blood pressure 126 mm[Hg] Lisa Mauricio DO Work Phone: [facility] 08-11-2024 14:47-0400 Blood Pressure Location [facility] 08-11-2024 14:47-0400 Diastolic blood pressure 70 mm[Hg] [facility] 08-11-2024 14:47-0400 Heart rate 89 /min [facility] 08-11-2024 14:47-0400 SaO2% (BldA) [Mass fraction] 98 % [facility] 08-11-2024 14:47-0400 Systolic blood pressure 114 mm[Hg] [facility] 05-18-2024 12:06-0400 Diastolic blood pressure 90 mm[Hg] [facility] 05-18-2024 12:06-0400 Mean blood pressure 104 mm[Hg] [facility] 05-18-2024 12:06-0400 Systolic blood pressure 132 mm[Hg] [facility] 05-18-2024 11:36-0400 Blood Pressure Location [facility] 05-18-2024 11:36-0400 Diastolic blood pressure 90 mm[Hg] [facility] 05-18-2024 11:36-0400 Heart rate 78 /min [facility] 05-18-2024 11:36-0400 SaO2% (BldA) [Mass fraction] 98 % [facility] 05-18-2024 11:36-0400 Systolic blood pressure 140 mm[Hg] [facility] 02-24-2024 17:26-0400 Blood Pressure Location [facility] 02-24-2024 17:26-0400 Diastolic blood pressure 82 mm[Hg] [facility] 02-24-2024 17:26-0400 Heart rate 91 /min [facility] 02-24-2024 17:26-0400 SaO2% (BldA) [Mass fraction] 97 % [facility] 02-24-2024 17:26-0400 Systolic blood pressure 136 mm[Hg] [facility] 12-23-2023 17:04-0500 Blood Pressure Location [facility] 12-23-2023 17:04-0500 Diastolic blood pressure 80 mm[Hg] [facility] 12-23-2023 17:04-0500 Heart rate 81 /min [facility] 12-23-2023 17:04-0500 SaO2% (BldA) [Mass fraction] 98 % [facility] 12-23-2023 17:04-0500 Systolic blood pressure 110 mm[Hg] [facility] 09-17-2023 15:44-0500 Blood Pressure Location [facility] 09-17-2023 15:44-0500 Diastolic blood pressure 94 mm[Hg] [facility] 09-17-2023 15:44-0500 Heart rate 83 /min [facility] 09-17-2023 15:44-0500 SaO2% (BldA) [Mass fraction] 98 % [facility] 09-17-2023 15:44-0500 Systolic blood pressure 128 mm[Hg] [facility] 06-17-2023 10:35-0400 Blood Pressure Location [facility] 06-17-2023 10:35-0400 Body temperature 97.7 [degF] [facility] 06-17-2023 10:35-0400 Diastolic blood pressure 60 mm[Hg] [facility] 06-17-2023 10:35-0400 Heart rate 82 /min [facility] 06-17-2023 10:35-0400 SaO2% (BldA) [Mass fraction] 97 % [facility] 06-17-2023 10:35-0400 Systolic blood pressure 110 mm[Hg] [facility] 04-04-2023 12:48-0400 Blood Pressure Location [facility] 04-04-2023 12:48-0400 Body temperature 97.7 [degF] [facility] 04-04-2023 12:48-0400 Diastolic blood pressure 80 mm[Hg] [facility] 04-04-2023 12:48-0400 Heart rate 86 /min [facility] 04-04-2023 12:48-0400 SaO2% (BldA) [Mass fraction] 97 % Romeo Chaidez [facility] 04-04-2023 12:48-0400 Systolic blood pressure 111 mm[Hg] Romeo Chaidez [facility] 12-30-2022 10:22-0500 Blood Pressure Location Josy Isaacs [facility] 12-30-2022 10:22-0500 Body temperature 98.42 [degF] Josy Isaacs [facility] 12-30-2022 10:22-0500 Diastolic blood pressure 76 mm[Hg] Josy Isaacs [facility] 12-30-2022 10:22-0500 Heart rate 72 /min Josy Isaacs [facility] 12-30-2022 10:22-0500 SaO2% (BldA) [Mass fraction] 98 % Josy Isaacs [facility] 12-30-2022 10:22-0500 Systolic blood pressure 138 mm[Hg] Josy Isaacs [facility] 10-30-2022 09:54-0500 Blood Pressure Location Josy Isaacs [facility] 10-30-2022 09:54-0500 Body temperature 98.24 [degF] Josy Isaacs [facility] 10-30-2022 09:54-0500 Diastolic blood pressure 74 mm[Hg] Josy Isaacs [facility] 10-30-2022 09:54-0500 Heart rate 77 /min Josy Isaacs [facility] 10-30-2022 09:54-0500 SaO2% (BldA) [Mass fraction] 100 % Josy Isaacs [facility] 10-30-2022 09:54-0500 Systolic blood pressure 130 mm[Hg] Josy Isaacs [facility] 08-26-2022 16:31-0400 Blood Pressure Location Josy Isaacs [facility] 08-26-2022 16:31-0400 Body temperature 97.88 [degF] Josy Isaacs [facility] 08-26-2022 16:31-0400 Diastolic blood pressure 66 mm[Hg] Josy Isaacs [facility] 08-26-2022 16:31-0400 Heart rate 61 /min Josy Isaacs [facility] 08-26-2022 16:31-0400 SaO2% (BldA) [Mass fraction] 98 % Josy Isaacs [facility] 08-26-2022 16:31-0400 Systolic blood pressure 124 mm[Hg] Josy Isaacs [facility] 05-22-2022 11:29-0400 Body temperature 97.3 [degF] MD Prateek Hicks Work Phone: [facility] 05-22-2022 11:29-0400 Diastolic blood pressure 61 mm[Hg] MD Prateek Hicks Work Phone: [facility] 05-22-2022 11:29-0400 Heart rate 64 /min MD Prateek Hicks Work Phone: [facility] 05-22-2022 11:29-0400 Respiratory rate 16 /min MD Prateek Hicks Work Phone: [facility] 05-22-2022 11:29-0400 SaO2% (BldA) [Mass fraction] 98 % MD Prateek Hicks Work Phone: [facility] 05-22-2022 11:29-0400 Systolic blood pressure 120 mm[Hg] MD Prateek Hicks Work Phone: [facility] 05-15-2022 08:00-0400 Body temperature 98.3 [degF] MD Prateek Hicks Work Phone: [facility] 05-15-2022 08:00-0400 Diastolic blood pressure 80 mm[Hg] MD Prateek Hicks Work Phone: [facility] 05-15-2022 08:00-0400 Heart rate 77 /min MD Prateek Hicks Work Phone: [facility] 05-15-2022 08:00-0400 Respiratory rate 16 /min MD Prateek Hicks Work Phone: [facility] 05-15-2022 08:00-0400 SaO2% (BldA) [Mass fraction] 96 % MD Prateek Hicks Work Phone: [facility] 05-15-2022 08:00-0400 Systolic blood pressure 127 mm[Hg] MD Prateek Hicks Work Phone: [facility] 05-14-2022 03:15-0400 Inhaled oxygen flow rate 1 L/min MD Prateek Hicks Work Phone: [facility] 05-13-2022 08:16-0400 Body height 162.56 cm MD Prateek Hicks Work Phone: [facility] 05-13-2022 08:16-0400 Body mass index (BMI) [Ratio] 32.9 kg/m2 MD Prateek Hicks Work Phone: [facility] 05-13-2022 08:16-0400 Body weight 87 kg MD Prateek Hicks Work Phone: [facility] 04-28-2022 11:30-0400 Body temperature 98.06 [degF] Brady Tierney [facility] 04-28-2022 11:30-0400 Diastolic blood pressure 86 mm[Hg] Brady Tierney [facility] 04-28-2022 11:30-0400 Heart rate 74 /min Brady Tierney [facility] 04-28-2022 11:30-0400 Respiratory rate 16 /min Brady Tierney [facility] 04-28-2022 11:30-0400 SaO2% (BldA) [Mass fraction] 98 % Brady Tierney [facility] 04-28-2022 11:30-0400 Systolic blood pressure 126 mm[Hg] Brady Tierney [facility] 02-25-2022 15:59-0400 Blood Pressure Location Josy Isaacs [facility] 02-25-2022 15:59-0400 Body temperature 98.06 [degF] Josy Isaacs [facility] 02-25-2022 15:59-0400 Diastolic blood pressure 78 mm[Hg] Josy Isaacs [facility] 02-25-2022 15:59-0400 Heart rate 74 /min Josy Isaacs [facility] 02-25-2022 15:59-0400 SaO2% (BldA) [Mass fraction] 98 % Josy Isaacs [facility] 02-25-2022 15:59-0400 Systolic blood pressure 128 mm[Hg] Josy Isaacs [facility] 02-19-2022 16:48-0400 Body temperature 98.2 [degF] Remigio Trujillo MD Work Phone: [facility] 02-19-2022 16:48-0400 Diastolic blood pressure 81 mm[Hg] Remigio Trujillo MD Work Phone: [facility] 02-19-2022 16:48-0400 Heart rate 69 /min Remigio Trujillo MD Work Phone: [facility] 02-19-2022 16:48-0400 Systolic blood pressure 121 mm[Hg] Remigio Trujillo MD Work Phone: [facility] Encounters Encounter Date Encounter Type Care Provider Facility Start: 11-10-2024 ambulatory Romeo Chaidez Facili ty:[facility] Start: 09-08-2024 End: 09-08-2024 ambulatory Romeo Chaidez Facility:[facility] Start: 09-08-2024 End: 09-08-2024 Patient encounter procedure Romeo Chaidez [facility] Start: 09-08-2024 End: 09-08-2024 ambulatory Romeo Chaidez Facility:[facility] Start: 09-08-2024 End: 09-08-2024 Patient encounter procedure Romeo Chaidez [facility] Start: 09-08-2024 End: 09-08-2024 Preprocedural examination done Romeo Chaidez [facility] Start: 08-19-2024 End: 08-19-2024 Bamboo flowsheet Lisa Martínez DO Work Phone: [facility] [address] [facility] Start: 08-19-2024 End: 08-19-2024 Bamboo flowsheet Lisa Martínez DO Work Phone: [facility] Start: 08-19-2024 End: 08-19-2024 Patient encounter procedure Lisa Martínez DO Work Phone: [facility] [address] [facility] Comment on above: 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) Start: 08-19-2024 End: 08-19-2024 ambulatory LISA MARTÍNEZ Not Available Start: 08-14-2024 End: 08-15-2024 Emergency department patient visit Dameon Varner Facility:[facility] Start: 08-11-2024 End: 08-11-2024 ambulatory Romeo Chaidez Facility:[facility] Start: 08-11-2024 End: 08-11-2024 Patient encounter procedure Romeo Chaidez [facility] Start: 07-19-2024 End: 07-19-2024 Emergency department patient visit Brenna Yoon Facility:[facility] Start: 06-07-2024 End: 06-08-2024 Emergency department patient visit Yovani Negrete Facility:[facility] Start: 06-04-2024 End: 06-04-2024 ambulatory Romeo Chaidez Facility:[facility] Start: 06-04-2024 End: 06-04-2024 Patient encounter procedure Romeo Chaidez [facility] Start: 05-18-2024 End: 05-18-2024 ambulatory Romeo Chaidez Facility:[facility] Start: 05-18-2024 End: 05-18-2024 Patient encounter procedure Romeo Chaidez [facility] Start: 05-13-2024 End: 05-13-2024 ambulatory LISA MARTÍNEZ Not Available Start: 04-13-2024 End: 04-14-2024 Emergency department patient visit Tru Matt Facility:[facility] Start: 02-24-2024 End: 02-24-2024 ambulatory Romeo Chaidez Facility:[facility] Start: 02-24-2024 End: 02-24-2024 Patient encounter procedure Romeo Chaidez [facility] Start: 02-03-2024 End: 02-04-2024 ambulatory REMIGIO TRUJILLO Facility:[facility] Start: 02-03-2024 End: 02-03-2024 Patient encounter procedure Remigio Trujillo MD Work Phone: Plastic Surgery Comment on above: Encounter for cosmet ic procedure (Primary Dx) Start: 01-29-2024 End: 01-29-2024 Emergency department patient visit Bin [facility] Facility:[facility] Start: 2023 End: 2023 Emergency department patient visit Tru Gillespie Shaka Facility:[facility] Start: 12-23-2023 End: 12-23-2023 ambulatory Romeo Chaidez Facility:[facility] Start: 12-23-2023 End: 12-23-2023 Patient encounter procedure Romeo Chaidez [facility] Start: 11-18-2023 End: 11-18-2023 Emergency department patient visit Jeff Ingram Facility:[facility] Start: 10-21-2023 End: 10-21-2023 ambulatory PRATEEK J PRINTY Not Available Start: 10-14-2023 End: 10-14-2023 ambulatory PRATEEK PRINTY Not Available Start: 10-01-2023 End: 10-01-2023 ambulatory Romeo Chaidez Facility:[facility] Start: 10-01-2023 End: 10-01-2023 Patient encounter procedure Romeo Chaidez [facility] Start: 09-18-2023 End: 09-18-2023 ambulatory PRATEEK J PRINTY Not Available Start: 09-17-2023 End: 09-17-2023 ambulatory Romeo Chaidez Facility:[facility] Start: 09-17-2023 End: 09-17-2023 Patient encounter procedure Romeo Chaidez [facility] Start: 09-15-2023 End: 09-15-2023 Emergency department patient visit Tru Matt Facility:[facility] Start: 06-17-2023 End: 06-17-2023 Patient encounter procedure Romeo Tothrima [facility] Start: 04-04-2023 End: 04-04-2023 Patient encounter procedure Romeo Lopez Yahairalaura [facility] Start: 03-18-2023 End: 03-19-2023 ambulatory REMIGIO TRUJILLO Facility:[facility] Start: 03-10-2023 End: 03-12-[address] DOCTOR BEAL Facility: Start: 12-30-2022 End: 12-30-2022 Patient encounter procedure Josy Isaacs [facility] Start: 12-05-2022 Telephone encounter Kacie Scars o [facility] Comment on above: Plastic Surg Skin Ca re (Pt purchased Obagi Clear 4% from [facility]/mailed.) Start: 12-04-2022 Refill Remigio Trujillo MD Work Phone: Plastic Surgery Comment on above: Refill Request Start: 11-24-2022 End: 11-24-2022 ambulatory CHARLIE DIAB . Facility: Start: 10-30-2022 End: 10-30-2022 Patient encounter procedure Josy Isaacs [facility] Start: 10-08-2022 End: 10-08-2022 Patient encounter procedure Remigio Trujillo MD Work Phone: Plastic Surgery Comment on above: Encounter for cosmet ic surgery (Primary Dx) Start: 08-26-2022 End: 08-26-2022 Patient encounter procedure Josy Isaacs [facility] Start: 06-04-2022 End: 06-04-2022 Patient encounter procedure Remigio Trujillo MD Work Phone: Plastic Surgery Comment on above: Elective procedure f or unacceptable cosmetic appearance (Primary Dx) Start: 05-22-2022 End: 05-22-2022 Emergency department patient visit Josy Isaacs Facility:[facility] Start: 05-22-2022 End: 05-22-2022 Emergency department patient visit MD Prateek Hicks Work Phone: [facility] Start: 05-13-2022 End: 05-15-2022 Evaluation and management of inpatient Josy Isaacs Facility:[facility] Start: 05-13-2022 End: 05-15-2022 Evaluation and management of inpatient MD Prateek Hicks Work Phone: [facility] Start: 05-09-2022 End: 05-09-2022 ambulatory Josy Isaacs Facility:[facility] Start: 05-09-2022 End: 05-09-2022 Patient encounter procedure MD Prateek Hicks Work Phone: [facility]-Pre-Surgical Testing Start: 04-29-2022 End: 04-29-2022 ambulatory Josy Isaacs Facility:[facility] Start: 04-29-2022 End: 04-29-2022 Patient encounter procedure MD Prateek Hicks Work Phone: [facility]Pre[facility]Surgical Testing Start: 04-28-2022 End: 04-28-2022 Emergency department patient visit Brady Tierney [facility] Start: 04-09-2022 End: 04-09-2022 Patient encounter procedure Remigio Trujillo MD Work Phone: Plastic Surgery Comment on above: Encounter for cosmet ic surgery (Primary Dx) Start: 02-25-2022 End: 02-25-2022 Patient encounter procedure Josy Isaacs [facility] Start: 02-19-2022 End: 02-19-2022 Patient encounter procedure Remigio Trujillo MD Work Phone: Plastic Surgery Comment on above: Encounter for cosmet ic surgery (Primary Dx) Start: 02-12-2022 End: 02-12-2022 Patient encounter procedure Nazanin Shaffer [facility] Procedures Date Procedure Procedure Detail Performing Clinician Start: 05-22-2022 Computed tomography of abdomen and pelvis with contrast MD Prateek Hicks Work Phone: Start: 05-15-2022 Diagnostic radiography of abdomen MD Prateek Hicks Work Phone: Start: 05-14-2022 Total hysterectomy Josy Isaacs Appendectomy Nazanin Shaffer Breast prosthesis, device (physical object) Nazanin Pachecod Breast structure (eli dy structure) Basemariza Shaffer History of appendectomy History of append ectomy Romeo Chaidez SARS Antigen (LFIA) MD Prateek Hicks Work Phone: Sinus (morphologic abnormality) Nazanin Shaffer Plan of Treatment Date Care Activity Detail Author Start: 07-13-2030 Urine microalbumin profile DTaP,Tdap,Td Vaccine (2 - Td or Tdap) [facility] Start: 01-27-2027 Screening for malign ant neoplasm of colon [facility] Start: 11-18-2024 End: 11-18-2024 Patient encounter procedure 11/18/2024 11:15 AM EST Procedure Visit [facility] [address] [place] [address] Lisa Martínez DO [address] [place], [place] [id number] [facility] Start: 08-19-2024 End: 08-19-2024 Patient encounter procedure 08/19/2024 10:00 AM EDT Procedure Visit [facility] [address] [place] [id number] Lisa Martínez [address] [place] [address] Arrived [facility] [address] [facility] Comment on above: Arrived Start: 2023 Shingrix Vaccine (1 of 2) Shingrix Vaccine (1 of 2) [facility] Start: 11-03-2023 Depression Assessment Depression Ass essment [facility] Start: 07-04-2023 Covid-19 Vaccine () Covid-19 Vaccine () [facility] Start: 11-03-2022 DEPRESSION ASSESSMENT DEPRESSION ASS ESSMENT [facility] Start: 08-30-2022 Diabetes Screening Diabetes Screenin g [facility] Start: 07-04-2022 Influenza vaccination C [facility] Start: 05-15-2022 [facility] Work Phone: Start: 05-13-2022 Release Peritoneum, Open Approach Release Peritoneum, Open Approach [facility] Start: 05-13-2022 Resection of Bilater al Fallopian Tubes, Open Approach Resection of Bilateral Fallopian Tubes, Open Approach [facility] Start: 05-13-2022 Resection of Bilater al Ovaries, Open Approach Resection of Bilateral Ovaries, Open Approach [facility] Start: 05-13-2022 Resection of Cervix, Open Approach Resection of Cervix, Open Approach [facility] Start: 05-13-2022 Resection of Uterus, Open Approach Resection of Uterus, Open Approach [facility] Start: 05-13-2022 Hospital admission [facility] Work Phone: Start: 11-03-2021 DEPRESSION ASSESSMENT DEPRESSION ASS ESSMENT [facility] Start: 08-30-2020 Screening for malign ant neoplasm of breast Mammogram Screening [facility] Start: 2018 COLOGUARD (FIT-DNA) COLOGUARD (FIT-D NA) [facility] [facility] Start: 2018 Colonoscopy COLONOSCOPY [facility] Start: 2018 COLORECTAL CANCER SCREENING COLORECTAL CANCER SCREENING [facility] Start: [address] COLONOGRAPHY [facility] Start: 2018 DIABETES SCREEN DIABETES SCREEN [facility] Start: 2018 FECAL OCCULT BLOOD FECAL OCCULT BLOO D [facility] Start: 2018 Lipid panel Lipid Screening [facility] Start: 2018 LIPID SCREEN LIPID SCREEN [facility] Start: 2018 Screening for malign ant neoplasm of colon [facility] Start: 2018 SIGMOIDOSCOPY SIGMOIDOSCOPY [facility] Start: 2013 Mammography MAMMOGRAM [facility] Start: 2003 HPV TESTING HPV TESTING [facility] Start: 2003 Screening for malign ant neoplasm of cervix HPV Testing [facility] Start: 1994 PAP TESTING PAP TESTING [facility] Start: 1994 Screening for malign ant neoplasm of cervix Pap Testing [facility] Start: 1992 Hepatitis B Vaccine (1 of 3 - 19+ 3-dose series) Hepatitis B Vaccine (1 of 3 - 19+ 3-dose series) [facility] Start: 1992 Urine microalbumin profile DTAP,TDAP,TD (1 - Tdap) [facility] Start: 1991 HEPATITIS C SCREENING HEPATITIS C [facility] Start: 1991 Hepatitis C screening Hepatitis C [facility] Start: 1991 HIV SCREENING HIV SCREENING [facility] Start: 1991 HIV screening HIV Screening [facility] Start: 1985 Adult depression screening assessment DEPRESSION SCREENING [facility] Start: 1979 PNEUMOCOCCAL (1 - PCV) PNEUMOCOCCAL (1 - PCV) [facility] Start: 1979 Pneumococcal vaccination Pneum ococcal Vaccine (1 of 2 - PCV) [facility] Start: 1978 COVID-19 VACCINE (#1) COVID-19 VACCI NE (#1) [facility] Start: 1978 COVID-19 VACCINE (1) COVID-19 VACCIN E (1) [facility] Start: 06-24-1974 COVID-19 VACCINE (#1) COVID-19 VACCI NE (#1) [facility] Start: 1973 HEPATITIS B (1 of 3 - 3-dose series) HEPATITIS B (1 of 3 - 3-dose series) [facility] Bacteria identified in Blood by Culture [facility] Patient Education [facility] Work Phone: Patient referral [facility] Work Phone: [facility] Immunizations Immunization Date Immunization Notes Care Provider Fa ciliramy 09-17-2023 influenza, injectabl e, quadrivalent, preservative free Romeo Chaidez [facility] 07-13-2020 tetanus toxoid, reduced diphtheria toxoid, and acellular pertussis vaccine, adsorbed Josy Isaacs [facility] 01-14-2011 hepatitis B vaccine, pediatric or pediatric/adolescent dosage Josy Isaacs [facility] 08-15-2010 hepatitis B vaccine, pediatric or pediatric/adolescent dosage Josy Isaacs [facility] 07-17-2010 hepatitis B vaccine, pediatric or pediatric/adolescent dosage Josy Isaacs [facility] NEGATED: Highlighted row has not occurred!08-26-2022 influenza virus vaccine, unspecified formulation Josy Isaacs [facility] Payers Date Payer Category Payer Medicaid [id number] 2013 Medicaid [id number] 1973 Unknown [id number] 2.16.84 0.1.605844.3.579.2.593 1973 Unknown [id number] 2.16.84 0.1.585795.3.579.2.593 1973 Unknown [id number] 2.16.84 0.1.065208.3.579.2.1259 1973 Unknown [id number] 2.16.84 0.1.909294.3.579.2.1259 1973 Unknown [id number] 2.16.840 .1.879424.3.579.2.1259 1973 Unknown [id number] 2.16.840 .1.507060.3.579.2.9 1973 Unknown [id number] 2.16.840 .1.425583.3.579.2.9 1973 Unknown [id number] 2.16.8 40.1.073470.3.579.2. 1973 Unknown [id number] 2.16.8 40.1.820227.3.579.2. 1973 Unknown [id number] 2.16.8 40.1.372988.3.579.2. 1973 Unknown [id number] 2.16.8 40.1.950095.3.579.2. 1973 Unknown [id number] 2.16.8 40.1.245468.3.579.2. 1973 Unknown [id number] 2.16.8 40.1.315884.3.579.2.8 1973 Unknown [id number] 2.16.8 40.1.305427.3.579.2. 1973 Unknown [id number] 2.16.8 40.1.019922.3.579.2. 1973 Unknown [id number] 2.16.8 40.1.237143.3.579.2. 1973 Unknown [id number] 2.16.8 40.1.453586.3.579.2. 1973 Unknown [id number] 2.16.8 40.1.952403.3.579.2. 1973 Unknown [id number] 2.16.8 40.1.990753.3.579.2. 1973 Unknown [id number] 2.16.8 40.1.524163.3.579.2.727 1973 Unknown [id number] 2.16.8 40.1.422074.3.579.2.727 1973 Unknown [id number] 2.16.8 40.1.725944.3.579.2.727 1973 Unknown [id number] 2.16.8 40.1.140188.3.579.2.727 1973 Unknown [id number] 2.16.8 40.1.136626.3.579.2.727 1973 Unknown [id number] 2.16.8 40.1.781220.3.579.2.727 1959 Unknown [id number] Medicaid [place] [employer] [id number] 401 [id number] Self-pay Self Pay [id number] Social History Date Type Detail Facility Start: 11-26-2021 End: 08-11-2024 Tobacco smoking status Light tobacco smoker (finding) [facility] Tobacco smoking status Never [facility] Start: 03-18-2023 End: 09-18-2023 Sex Assigned At Female [facility] Start: 06-20-2020 End: 03-18-2023 Tobacco smoking status [facility] Occasional tobacco smoker [facility] Start: 06-20-2020 End: 09-16-2023 Tobacco use and exposure Smokeless tobacco non-user [facility] Start: 1975 Sex Assigned At Female [facility] Start: 05-13-2022 Tobacco smoking stat us [facility]IS Current Heavy tobacco smoker [facility] Start: 05-25-2022 End: 06-04-2022 Exposure to SARS-CoV-2 (event) Not sure [facility] Start: 03-18-2023 End: 09-18-2023 History of Social function [facility] Start: 01-24-2022 Gender identity Identifies as female gender (finding) [facility] Start: 09-16-2023 Tobacco smoking stat [facility] Smokes tobacco daily [facility] History of tobacco use Cigarette Smoker [facility] Start: 03-25-2024 Alcoholic beverage intake Ex-drinker (finding) [facility] Start: 10-29-2023 Alcohol Comment caffeine 3-4 cups/da y [facility] Start: 1975 Sex assigned at Not on file [facility] Goals Date Patient Goal Desired Activity /State Functional Status Date Assessment Result Facility 09-08-2024 Functional Status N/A [facility] 08-11-2024 Functional Status N/A [facility] 05-18-2024 Functional Status N/A [facility] 02-24-2024 Functional Status N/A [facility] 12-23-2023 Functional Status N/A [facility] 09-17-2023 Functional Status N/A [facility] 04-04-2023 Functional Status N/A [facility] 12-30-2022 Functional Status N/A [facility] 10-30-2022 Functional Status N/A [facility] 08-26-2022 Functional Status N/A [facility] 04-28-2022 Functional Status N/A [facility] Clinical Notes 11-26-2021 to 09-08-2024 Lisa Martínez DO - 08/19/2024 10:00 AM Remigio Grimm MD - 02/03/2024 4:42 PM Shawanda Peck, MELECIO.LAURIE - 02/03/2024 4:15 PM NESTOR Doss - 10/08/2022 4:15 PM ESTRadiology Note Date & Type Note Facility 09-08-2024 Hospital Discharge instructions Patient Education 09/08/2024 12:21:07 General Anesthesia, Adult, Care After General Anesthesia, Adult, Care After The following information offers guidance on how to care for yourself after your procedure. Your health care provider may also give you more specific instructions. If you have problems or questions, contact your health care provider. What can I expect after the procedure? After the procedure, it is common for people to: Have pain or discomfort at the IV site. Have nausea or vomiting. Have a sore throat or hoarseness. Have trouble concentrating. Feel cold or chills. Feel weak, sleepy, or tired (fatigue). Have soreness and body aches. These can affect parts of the body that were not involved in surgery. Follow these instructions at home: For the time period you were told by your health care provider: Rest. Do not participate in activities where you could fall or become injured. Do not drive or use machinery. Do not drink alcohol. Do not take sleeping pills or medicines that cause drowsiness. Do not make important decisions or sign legal documents. Do not take care of children on your own. General instructions Drink enough fluid to keep your urine pale yellow. If you have sleep apnea, surgery and certain medicines can increase your risk for breathing problems. Follow instructions from your health care provider about wearing your sleep device: ?Anytime you are sleeping, including during daytime naps. ?While taking prescription pain medicines, sleeping medicines, or medicines that make you drowsy. Return to your normal activities as told by your health care provider. Ask your health care provider what activities are safe for you. Take ifze-jhs-mlxwtuc and prescription medicines only as told by your health care provider. Do not use any products that contain nicotine or tobacco. These products include cigarettes, chewing tobacco, and vaping devices, such as e-cigarettes. These can delay incision healing after surgery. If you need help quitting, ask your health care provider. Contact a health care provider if: You have nausea or vomiting that does not get better with medicine. You vomit every time you eat or drink. You have pain that does not get better with medicine. You cannot urinate or have bloody urine. You develop a skin rash. You have a fever. Get help right away if: You have trouble breathing. You have chest pain. You vomit blood. These symptoms may be an emergency. Get help right away. Call 911. Do not wait to see if the symptoms will go away. Do not drive yourself to the hospital. Summary After the procedure, it is common to have a sore throat, hoarseness, nausea, vomiting, or to feel weak, sleepy, or fatigue. For the time period you were told by your health care provider, do not drive or use machinery. Get help right away if you have difficulty breathing, have chest pain, or vomit blood. These symptoms may be an emergency. This information is not intended to replace advice given to you by your health care provider. Make sure you discuss any questions you have with your health care provider. Document Revised: 01/17/2023 Document Reviewed: 01/17/2023 [employer] Patient Education 2023 [employer]. [facility] 09-08-2024 Note Patient Education Pharmacology General Anesthesia, Adult, Care After The following information offers guidance on how to care for yourself after your procedure. Your health care provider may also give you more specific instructions. If you have problems or questions, contact your health care provider. What can I expect after the procedure? After the procedure, it is common for people to: ??? Have pain or discomfort at the IV site. ??? Have nausea or vomiting. ??? Have a sore throat or hoarseness. ??? Have trouble concentrating. ??? Feel cold or chills. ??? Feel weak, sleepy, or tired (fatigue). ??? Have soreness and body aches. These can affect parts of the body that were not involved in surgery. Follow these instructions at home: For the time period you were told by your health care provider: ??? Rest. ??? Do not participate in activities where you could fall or become injured. ??? Do not drive or use machinery. ??? Do not drink alcohol. ??? Do not take sleeping pills or medicines that cause drowsiness. ??? Do not make important decisions or sign legal documents. ??? Do not take care of children on your own. General instructions ??? Drink enough fluid to keep your urine pale yellow. ??? If you have sleep apnea, surgery and certain medicines can increase your risk for breathing problems. Follow instructions from your health care provider about wearing your sleep device: ? Anytime you are sleeping, including during daytime naps. ? While taking prescription pain medicines, sleeping medicines, or medicines that make you drowsy. ??? Return to your normal activities as told by your health care provider. Ask your health care provider what activities are safe for you. ??? Take visc-sns-cbgzqse and prescription medicines only as told by your health care provider. ??? Do not use any products that contain nicotine or tobacco. These products include cigarettes, chewing tobacco, and vaping devices, such as e-cigarettes. These can delay incision healing after surgery. If you need help quitting, ask your health care provider. Contact a health care provider if: ??? You have nausea or vomiting that does not get better with medicine. ??? You vomit every time you eat or drink. ??? You have pain that does not get better with medicine. ??? You cannot urinate or have bloody urine. ??? You develop a skin rash. ??? You have a fever. Get help right away if: ??? You have trouble breathing. ??? You have chest pain. ??? You vomit blood. These symptoms may be an emergency. Get help right away. Call 911. ??? Do not wait to see if the symptoms will go away. ??? Do not drive yourself to the hospital. Summary ??? After the procedure, it is common to have a sore throat, hoarseness, nausea, vomiting, or to feel weak, sleepy, or fatigue. ??? For the time period you were told by your health care provider, do not drive or use machinery. ??? Get help right away if you have difficulty breathing, have chest pain, or vomit blood. These symptoms may be an emergency. This information is not intended to replace advice given to you by your health care provider. Make sure you discuss any questions you have with your health care provider. Document Revised: 01/17/2023 Document Reviewed: 01/17/2023 [employer] Patient Education ? 2023 [employer]. [facility] 08-19-2024 History of Present illness Narrative Procedure [...] sterilized with 70% isopropanol alcohol. LOT # [id number] EXP 11/2026 Dilution: 1:1 Procedure Procerus 10 units Conveyancer, L 5 units Conveyancer, R 5 units Frontalis, L 10+5 units [...] without status migrainosus - G43.719 Toradol Lot# [id number] in right Glut gray Exp 06/27 documented in this encounter [facility] 08-15-2024 Note Education Materials Neurology Chronic Migraine [...] these instructions at home: Medicines ? Take qqwk-hdy-fufjvvy and prescription medicines only as told by [...] Headache and Migraine Patients (CHAMP): headachemigraine.org ? [place] Migraine Foundation: americanmigrainefoundation.org ? National Headache Foundation: [...] provider. Document Revised: 06/16/2023 Document Reviewed: 06/16/2023 [employer] Patient Education ? 2023 [employer]. Orthopedics Cervical Radiculopathy Follow-up with your surgeon for treatment of your neck pain radiating into the right (more content not included)... [facility] 08-11-2024 Hospital Discharge instructions Patient Education 08/11/2024 [...] require a prescription. You can also purchase gxqu-nco-ovoffkn medicines. Medicines may have nicotine in them [...] and encouragement. Call telephone quitlines, such as 8-732-UXWU-NOW, reach out to support groups, or work [...] provider. Document Revised: 10/11/2022 Document Reviewed: 10/11/2022 [employer] Patient Education 2023 [employer]. Follow Up Care 05/18/2024 12:56:29 With:Dm ANDINO, XAVIER Boucher PED Address: [address] [place] [address] [phone] When:3 months Comments:20 min slotcyclobenzaprine 5mg twice a daymeloxicam 7.5mg dailyhave the surgeon send us notesf/u 3 months [facility] 08-11-2024 Note Patient Education Pulmonary Medicine Steps [...] require a prescription. You can also purchase uave-bzj-qenargz medicines. Medicines may have nicotine in them [...] and encouragement. Call telephone quitlines, such as 0-582-UODZ-NOW, reach out to support groups, or work [...] systems that can (more content not included)... [facility] 07-19-2024 Note Education Materials Orthopedics Muscle Strain [...] not too tight. General instructions ? Take rcll-jzq-haqajju and prescription medicines only as told by [...] provider. Document Revised: 01/07/2022 Document Reviewed: 01/07/2022 [employer] Patient Education ? 2023 [employer]. [facility] 06-08-2024 Note Education Materials Cardiovascular Hypertension, Adult [...] Keep all follow-up visits. Medicines ? Take bxdy-uqv-qdhxfjy and prescription medicines only as told by [...] work harder to (more content not included)... [facility] 05-18-2024 Hospital Discharge instructions Patient Education 05/18/2024 [...] Follow these instructions at home: Medicines Take jcvn-ttz-yrbxrfu and prescription medicines only as told by [...] a problem, search for a local or critical access hospital mental health care center. Public mental [...] with Attention Deficit Hyperactivity Disorder: marina.org National Collbran of Mental Health: nimh.nih.gov Centers for Disease [...] the National Suicide Prevention Lifeline at or 744. This is open 24 hours a day. Text the Crisis Text Line at 842689. Summary With treatment and support, you can [...] provider. Document Revised: 02/07/2023 Document Reviewed: 02/07/2023 [employer] Patient Education 2022 [employer]. Follow Up Care 02/24/2024 18:03:00 With:Dm ANDINO, XAVIER Boucher, PED Address: [address] [place] [address] [phone] When:3 months Comments:[address] for lung cancer screeningI have updated your med list todayThe book I recommend is Crucial Conversations 3 months f/u [facility] 05-18-2024 Note Patient Education [...] these instructions at home: Medicines ? Take xydw-luy-evoaypi and prescription medicines only as told by [...] a problem, search for a local or critical access hospital mental health care center. Public mental [...] Attention Deficit Hyperactivity Disorder: marina.org ? National Collbran of Mental Health: [facility].nih.gov ? Centers for Disease Control and Prevention: [...] or others, or (more content not included)... [facility] 04-14-2024 Note [phone] [id number] 04-14-2024 Note Education Materials Neurology Occipital Neuralgia [...] heat or cold to the area. ? Kljf-wre-fspqtkh pain relievers. If these measures do not [...] to the area. General instructions ? Take kxty-rgz-illxkmh and prescription medicines only as told by [...] Summary ? O (more content not included)... [facility] 02-24-2024 Hospital Discharge instructions Patient Education 02/24/2024 [...] primary care provider or a mental health patient care representative. Your health care provider may use a [...] Behavioral management. You may work with a reading coach who is specially trained to help people with ADHD manage and organize activities and function more effectively. Follow these instructions at home: Medicines Take bxxl-cto-zrhgooq and prescription medicines only as told by [...] Attention Deficit Disorder Association (ADDA): add.org National Collbran of Mental Health (NIMH): nimh.nih.gov Contact a [...] the National Suicide Prevention Lifeline at or 202. This is open 24 hours a day Text the Crisis Text Line at 775791. Summary ADHD is a mental health disorder [...] provider. Document Revised: 02/07/2023 Document Reviewed: 02/07/2023 [employer] Patient Education 2022 [employer]. Follow Up Care 12/23/2023 18:06:46 With:Dm ANDINO, XAVIER Boucher, PED Address: [address] [place] [address] [phone] When:3 months Comments:20 min slotTo go instructions:Read Driven to Distraction by Pablo Vital to learn more about ADHD https://www.Walk Score.ResQU/slides hows/rvtt-pbigevsu-pflxj-off-our-f eet/*When you see providers outside of [facility], please request that they send office visit notes every time you're seen there - this helps us take better care of youFollow up 3 months [facility] 02-03-2024 Note HNO ID: [id number] Author: REMIGIO TRUJILLO MD Service: ? Author Type: Physician Type: Progress Notes Filed: 02/03/2024 16:47 Note Text: [facility] STAFF PHYSICIAN NOTE OF PERSONAL INVOLVEMENT IN CARE I have reviewed the progress note obtained and documented by the physician assistant editor/registered nurse/fellow, and I personally participated in the beck components. I have discussed the case and management of the patient's care. SIGNATURE: Remigio Trujillo MD [facility] 02-03-2024 Note HNO ID: [id number] Author: SHAWANDA JORDAN APRN.[employer]STIGATION SUPERVISOR Service: ? Author Type: Nurse Practitioner Type: [...] reflects their service. Scribed by Shawanda Jordan APRN.[facility] 02-03-2024 History of Present illness Narrative [facility] STAFF PHYSICIAN NOTE OF PERSONAL INVOLVEMENT IN CARE I have reviewed the progress note obtained and documented by the physician assistant editor/registered nurse/fellow, and I personally participated in the [...] reflects their service. Scribed by Shawanda Jordan APRN.ANIMAL CRUELTY INVESTIGATION SUPERVISOR documented in this encounter [facility] 01-29-2024 Note Education Materials Cardiovascular Hypertension, Adult [...] Keep all follow-up visits. Medicines ? Take xpyw-ydh-uhxmpjn and prescription medicines only as told by [...] be an em (more content not included)... [facility] 2023 Note Education Materials Neurology Migraine Headache [...] these instructions at home: Medicines ? Take arkn-qfg-dchzvxx and prescription medicines only as told by your doctor. ? Ask your doctor if the medicine prescribed to you: ? Requires you to avoid driving or using heavy machinery. ? Can cause trouble pooping (constipation). You may need to take these steps to prevent or treat trouble pooping: ? Drink enough fluid to keep your pee (urine) pale yellow. ? Take kdjv-lwo-xycynqx or prescription medicines. ? Eat foods that [...] that is differe (more content not included)... [facility] 12-23-2023 Hospital Discharge instructions Patient Education 12/23/2023 [...] primary care provider or a mental health patient care representative. Your health care provider may use a [...] Behavioral management. You may work with a reading coach who is specially trained to help people with ADHD manage and organize activities and function more effectively. Follow these instructions at home: Medicines Take dctx-zab-vncbkau and prescription medicines only as told by [...] Attention Deficit Disorder Association (ADDA): add.org National Collbran of Mental Health (NIMH): nimh.nih.gov Contact a [...] the National Suicide Prevention Lifeline at or 977. This is open 24 hours a day Text the Crisis Text Line at 492306. Summary ADHD is a mental health disorder [...] provider. Document Revised: 02/07/2023 Document Reviewed: 02/07/2023 [employer] Patient Education 2022 [employer]. Follow Up Care 09/17/2023 16:49:24 With:Dm ANDINO, XAVIER Boucher, PED Address: [address] [place] [address] [phone] When:3 months Comments:20 min slotTo go instructions:Continue Adderall as prescribedRead Driven to Distraction by Pablo Vital to learn more about ADHD https://www.Walk Score.com/slides hows/iugv-rcwxaxms-yssil-off-our-f eet/F/u every three months [facility] [place] 11-18-2023 Note Education Materials Neurology Migraine Headache [...] these instructions at home: Medicines ? Take yzoz-fsx-ixjbaes and prescription medicines only as told by your health care provider. ? Ask your health care provider if the medicine prescribed to you: ? Requires you to avoid driving or using heavy machinery. ? Can cause constipation. You may need to take these actions to prevent or treat constipation: ? Drink enough fluid to keep your urine pale yellow. ? Take oozu-trz-ylgtddn or prescription medicines. ? Eat foods that [...] You develop symptoms (more content not included)... [facility] 09-15-2023 Note Education Materials Neurology Migraine Headache [...] these instructions at home: Medicines ? Take huxk-xdt-rmjeahj and prescription medicines only as told by your doctor. ? Ask your doctor if the medicine prescribed to you: ? Requires you to avoid driving or using heavy machinery. ? Can cause trouble pooping (constipation). You may need to take these steps to prevent or treat trouble pooping: ? Drink enough fluid to keep your pee (urine) pale yellow. ? Take jgjb-rky-kixsomz or prescription medicines. ? Eat foods that [...] that is differe (more content not included)... [facility] 06-17-2023 Hospital Discharge instructions Follow Up Care 06/17/2023 11:37:09 With:Romeo Chaidez DO, FAM, PED Address: [address] [place] [address] [phone] When:3 months Comments:ADHD - 3 month [facility] [place] 03-18-2023 Note HNO ID: [id number] Author: Remigio Trujillo MD Service: ? Author [...] (maintenance) to face ($200) Remigio Trujillo MD [facility] 12-30-2022 Evaluation + Plan note Future Scheduled TestsMRI Spine Cervical w/o Contrast 12/30/22 [facility] 12-30-2022 Hospital Discharge instructions Patient [...] your health care provider. Managing pain Take vhuo-bja-igtiujz and prescription medicines only as told by [...] 07/15/2002 Document Revised: 09/10/2019 Document Reviewed: 09/10/2019 [employer] Patient Education 2020 [employer]. 12/30/2022 10:59:03 Tobacco Use Disorder Tobacco Use [...] reduces withdrawal symptoms. NRT is available as: ?Qaiw-wxh-thobfqw gums, lozenges, and skin patches. ?Prescription mouth [...] recovery for many people. General instructions Take gpnw-ocz-brciaab and prescription medicines only as told by your health care provider. Check with your health care provider before taking any new prescription or snax-tfz-vvvpznj medicines. Decide on a friend, family member, or smoking quit-line (such as 5-024-EJTF-NOW in the [place] that you can call [...] 06/25/2005 Document Revised: 10/07/2018 Document Reviewed: 10/07/2018 [employer] Patient Education 2020 [employer]. 12/30/2022 10:59:00 BMI for Adults BMI for [...] height. This can be done either in Chinese ([place] or metric measurements. Note that charts are available to help you find your BMI quickly and easily without having to do these calculations yourself. To calculate your BMI in Chinese ([place] measurements, your health care provider will: [...] medical problems. BMI can be measured using Chinese measurements or metric measurements. To interpret your [...] 07/01/2005 Document Revised: 10/02/2018 Document Reviewed: 09/02/2018 [employer] Patient Education 2020 [employer]. 12/30/2022 10:58:58 Attention Deficit Hyperactivity Disorder, Adult [...] primary care provider or a mental health patient care representative. Your health care provider may use a [...] Behavioral management. You may work with a reading coach who is specially trained to help people with ADHD manage and organize activities and function more effectively. Follow these instructions at home: Medicines Take kbqq-zeq-lhwdpub and prescription medicines only as told by [...] Attention Deficit Disorder Association (ADDA): www.add.org National Collbran of Mental Health (NIMH): www.nimh.nih.gov Contact a [...] 06/11/2018 Document Revised: 03/13/2020 Document Reviewed: 03/13/2020 Elsevier Patient Education 2019 [employer] Follow Up Care 10/30/2022 10:15:29 With:Josy Isaacs CNP Address: [address] [place] [address] [place] [address] [phone] When:3 months [facility] 10-30-2022 Hospital Discharge instructions Patient [...] reduces withdrawal symptoms. NRT is available as: ?Qwub-zhu-tipvswj gums, lozenges, and skin patches. ?Prescription mouth [...] recovery for many people. General instructions Take dtmw-abb-qyptfkl and prescription medicines only as told by your health care provider. Check with your health care provider before taking any new prescription or fmdx-koy-mnprkhj medicines. Decide on a friend, family member, or smoking quit-line (such as 8-470-TYGP-NOW in the [place] that you can call [...] 06/25/2005 Document Revised: 10/07/2018 Document Reviewed: 10/07/2018 [employer] Patient Education 2020 [employer]. 10/30/2022 10:28:09 BMI for Adults BMI for [...] height. This can be done either in Chinese ([place] or metric measurements. Note that charts are available to help you find your BMI quickly and easily without having to do these calculations yourself. To calculate your BMI in Chinese ([place] measurements, your health care provider will: [...] medical problems. BMI can be measured using Chinese measurements or metric measurements. To interpret your [...] 07/01/2005 Document Revised: 10/02/2018 Document Reviewed: 09/02/2018 [employer] Patient Education 2020 [employer] 10/30/2022 10:28:07 Attention Deficit Hyperactivity Disorder, Adult [...] primary care provider or a mental health patient care representative. Your health care provider may use a [...] Behavioral management. You may work with a reading coach who is specially trained to help people with ADHD manage and organize activities and function more effectively. Follow these instructions at home: Medicines Take gueb-rie-xwnkhmt and prescription medicines only as told by [...] Attention Deficit Disorder Association (ADDA): www.add.org National Collbran of Mental Health (NIMH): www.nimh.nih.gov Contact a [...] 06/11/2018 Document Revised: 03/13/2020 Document Reviewed: 03/13/2020 [employer] Patient Education 2020 [employer]. Follow Up Care 08/26/2022 17:13:26 With:Josy Isaacs CNP Address: [address] [place] [address] [phone] When:3 months [facility] 10-08-2022 History of Present illness [...] patient tolerated the procedure well. Return PRN. Humberto SANTOS (maintenance) to face ($200) The patient is seen and examined by Remigio Trujillo M.D. and the following reflects his/her service. Scribed by Kirsten De Jesus I agree with the Chief Complaint, ROS, and Past Histories independently gathered by the clinical customer support specialist and the remaining scribed note accurately describes my personal service to the patient. marky trujillo documented in this encounter [facility] 08-26-2022 Hospital Discharge instructions Patient Education 08/26/2022 [...] height. This can be done either in Chinese ([place] or metric measurements. Note that charts are available to help you find your BMI quickly and easily without having to do these calculations yourself. To calculate your BMI in Chinese ([place] measurements, your health care provider will: [...] medical problems. BMI can be measured using Chinese measurements or metric measurements. To interpret your [...] 07/01/2005 Document Revised: 10/02/2018 Document Reviewed: 09/02/2018 [employer] Patient Education 2020 [employer] 08/26/2022 20:15:59 Tobacco Use Disorder Tobacco Use [...] reduces withdrawal symptoms. NRT is available as: ?Nmsk-idj-uozvvdl gums, lozenges, and skin patches. ?Prescription mouth [...] recovery for many people. General instructions Take olfg-nrq-jlfqvnu and prescription medicines only as told by your health care provider. Check with your health care provider before taking any new prescription or jbbu-aby-lfdilum medicines. Decide on a friend, family member, or smoking quit-line (such as 3-387-CQEV-NOW in the [place] that you can call [...] 06/25/2005 Document Revised: 10/07/2018 Document Reviewed: 10/07/2018 [employer] Patient Education 2020 [employer]. 08/26/2022 20:15:57 Attention Deficit Hyperactivity Disorder, Adult [...] primary care provider or a mental health patient care representative. Your health care provider may use a [...] Behavioral management. You may work with a reading coach who is specially trained to help people with ADHD manage and organize activities and function more effectively. Follow these instructions at home: Medicines Take xbnj-yys-oqcrtfr and prescription medicines only as told by [...] Attention Deficit Disorder Association (ADDA): www.add.org National Collbran of Mental Health (NIMH): www.nimh.nih.gov Contact a [...] 06/11/2018 Document Revised: 03/13/2020 Document Reviewed: 03/13/2020 [employer] Patient Education 2020 [employer] 08/26/2022 20:15:55 Migraine Headache Migraine Headache A [...] Follow these instructions at home: Medicines Take uwih-ihd-lxkbrox and prescription medicines only as told by your health care provider. Ask your health care provider if the medicine prescribed to you: ?Requires you to avoid driving or using heavy machinery. ?Can cause constipation. You may need to take these actions to prevent or treat constipation: ?Drink enough fluid to keep your urine pale yellow. ?Take mvvh-dzj-kqqgggq or prescription medicines. ?Eat foods that are [...] 10/20/2006 Document Revised: 02/11/2020 Document Reviewed: 12/02/2019 [employer] Patient Education 2019 [employer]. Follow Up Care 02/25/2022 16:52:01 With:Josy Isaacs CNP Address: [address] [place] [phone] [phone] When:1 month [facility] 06-04-2022 History of Present illness [...] Past Histories independently gathered by the clinical customer support specialist and the remaining scribed note accurately describes my personal service to the patient. marky trujillo documented in this encounter [facility] 04-28-2022 Hospital Discharge instructions Patient Education 04/28/2022 12:32:16 Skin Abscess, Goba-yk-Egpk Skin Abscess A skin abscess is an [...] Follow these instructions at home: Medicines Take ihjs-hpo-lqdxkvp and prescription medicines only as told by [...] cannot use soap and water, use hand sign builder. Check your abscess every day for signs that the infection is getting worse. Check for: ?More redness, swelling, or pain. ?More fluid or blood. ?Warmth. ?More pus or a bad smell. General instructions To avoid spreading the infection: ?Do not share personal care items, towels, or hot tubs with others. ?Avoid making flna-ca-zahr contact with other people. Keep all follow-up [...] 04/07/2009 Document Revised: 02/10/2020 Document Reviewed: 12/03/2018 [employer] Patient Education 2020 [employer] Follow Up Care 04/28/2022 11:27:09 With:Josy Isaacs Address:Unknown When:05/01/2022 12:04:27 [facility] 04-09-2022 History of Present illness Narrative Date: [...] Past Histories independently gathered by the clinical customer support specialist and the remaining scribed note accurately describes my personal service to the patient. marky trujillo documented in this encounter [facility] 02-19-2022 History of Present illness Narrative Date: [...] his/her service. Scribed by Kirsten De Jesus RNI agree with the Chief Complaint, ROS, and Past Histories independently gathered by the clinical customer support specialist and the remaining scribed note accurately describes my personal service to the patient. marky trujillo documented in this encounter [facility] 11-26-2021 Hospital Discharge instructions Follow Up Care 11/26/2021 16:27:06 With:Josy Isaacs CNP Address: When:6 months Comments:or sooner if needed. [facility] Evaluation + Plan note Future Appointments Appointment Date:02/25/2022 04:00:00 PM Scheduled Provider:Josy Isaacs CNP Location:[facility] Appointment Type:[facility] Evaluation + Plan note Future Appointments Appointment Date:08/26/2022 04:20:00 PM Scheduled Provider:Josy Isaacs CNP Location:[facility] Appointment Type:[facility] Evaluation + Plan note Future Appointments Appointment Date:08/26/2022 04:20:00 PM Scheduled Provider:Josy Isaacs CNP Location:[facility] Appointment Type: Open Diagnostic Tests PendingWound Culture 04/28/22 [facility] Evaluation + Plan note Future Appointments Appointment Date:09/30/2022 11:00:00 AM Scheduled Provider:Josy Isaacs CNP Location:[facility] Appointment Type:[facility] Evaluation + Plan note Future Appointments Appointment Date:12/30/2022 10:20:00 AM Scheduled Provider:Josy Isaacs CNP Location:[facility] Appointment Type:[facility] Evaluation + Plan note Future Appointments Appointment Date:05/02/2023 08:40:00 AM Scheduled Provider:Romeo Chaidez DO Location:[facility] Appointment Type: New Patient - Adult Future Scheduled TestsMRI Spine Cervical w/o Contrast 12/30/22 [facility] Evaluation + Plan note Future Appointments Appointment Date:09/17/2023 03:40:00 PM Scheduled Provider:Romeo Chaidez DO Location:[facility] [place] Appointment Type: Open Future Scheduled [id number] 06/17/23TSH With T4fr Reflex 06/17/23CBC w/ Auto Diff 06/17/23Ferritin 06/17/23Folate Level 06/17/23Iron Level 06/17/23Transferrin 06/17/23Vitamin B12 Level 06/17/23MRI Spine Cervical w/o Contrast 12/30/22 [facility] Evaluation + Plan note Future Appointments Appointment Date:12/23/2023 05:00:00 PM Scheduled Provider:Romeo Chaidez DO Location:[facility] Appointment Type: Open Future Scheduled [id number] 06/17/23TSH With T4fr Reflex 06/17/23CBC w/ Auto Diff 06/17/23Ferritin 06/17/23Folate Level 06/17/23Iron Level 06/17/23Transferrin 06/17/23Vitamin B12 Level 06/17/23MRI Spine Cervical w/o Contrast 12/30/22 [facility] Evaluation + Plan note Future Appointments Appointment Date:12/23/2023 05:00:00 PM Scheduled Provider:Romeo Chaidez DO Location:[facility] Appointment Type: Open Future Scheduled TestsMRI Spine Cervical w/o Contrast 12/30/22 [facility] Evaluation + Plan note Future Appointments Appointment Date:02/24/2024 05:20:00 PM Scheduled Provider:Romeo Chaidez DO Location:[facility] Appointment Type: Open Future Scheduled TestsVitamin D 25 Hydroxy 10/07/23MRI Spine Cervical w/o Contrast 12/30/22 [facility] Evaluation + Plan note Future Appointments Appointment Date:05/18/2024 11:40:00 AM Scheduled Provider:Romeo Chaidez DO Location:[facility] Appointment Type: Open Future Scheduled TestsVitamin D 25 Hydroxy 10/07/23 [facility] Evaluation + Plan note Future Appointments Appointment Date:08/11/2024 02:40:00 PM Scheduled Provider:Romeo Chaidez DO Location:[facility] Appointment Type: Open Future Scheduled TestsVitamin D 25 Hydroxy 10/07/23CT Chest, Low Dose Screening 05/18/24 [facility] Evaluation + Plan note Future Appointments Appointment Date:08/11/2024 02:40:00 PM Scheduled Provider:Romeo Chaidez DO Location:[facility] Appointment Type: Open Future Scheduled TestsVitamin D 25 Hydroxy 10/07/23 [facility] Evaluation + Plan note Future Appointments Appointment Date:11/10/2024 04:00:00 PM Scheduled Provider:Romeo Chaidez DO Location:[facility] Appointment Type: Open Future Scheduled TestsVitamin D 25 Hydroxy 10/07/23 [facility] Evaluation + Plan note Future Appointments Appointment Date:11/10/2024 04:00:00 PM Scheduled Provider:Romeo Chaidez DO Location:[facility] Appointment Type: Open [facility] Evaluation note Diagnosis Encounter for cosmetic surgery- Primary Other plastic surgery for unacceptable cosmetic appearance [facility] Diagnosis Encounter for cosmetic surgery- Primary Other plastic surgery for unacceptable cosmetic appearance [facility] Diagnosis Onset Date Resolution Status Menorrhagia, premenopausal a [facility] Work Phone: Evaluation note* Diagnosis Elective procedure for unacceptable cosmetic appearance- Primary Other plastic surgery for unacceptable cosmetic appearance [facility] Encounter for cosmetic surgery- Primary Other plastic surgery for unacceptable cosmetic appearance [facility] Diagnosis Encounter for cosmetic procedure- Primary [facility] Diagnosis Intractable chronic migraine without aura and without status migrainosus (CMS/HCC)- [facility] N[facility] No data available for this section [facility] No data available for this section [facility] No data available for this section [facility] Chief Complaint and Reason for Visit Chief [...] or prosecute any alcohol or drug abuse patient.[facility] the event this information is protected by the Federal Confidentiality of Alcohol and Drug Abuse Patient Records regulations: The Federal rules restrict any use of the information to criminally investigate or prosecute any alcohol or drug abuse patient.[facility] the event this information is protected by the Federal Confidentiality of Alcohol and Drug Abuse Patient Records regulations: The Federal rules restrict any use of the information to criminally investigate or prosecute any alcohol or drug abuse patient.[facility] the event this information is protected by the Federal Confidentiality of Alcohol and Drug Abuse Patient Records regulations: The Federal rules restrict any use of the information to criminally investigate or prosecute any alcohol or drug abuse patient.[facility] Hospital[facility] the event this information is protected by the Federal Confidentiality of Alcohol and Drug Abuse Patient Records regulations: The Federal rules restrict any use of the information to criminally investigate or prosecute any alcohol or drug abuse patient.[facility] Hospital[facility] the event this information is protected by the Federal Confidentiality of Alcohol and Drug Abuse Patient Records regulations: The Federal rules restrict any use of the information to criminally investigate or prosecute any alcohol or drug abuse patient.[facility] Hospital[facility] the event this information is protected by the Federal Confidentiality of Alcohol and Drug Abuse Patient Records regulations: The Federal rules restrict any use of the information to criminally investigate or prosecute any alcohol or drug abuse patient.[facility] Reason for Visit (unrecogniz ed section and content) Reason Comments Established Patient Reason Comments Consult Reason Comments Follow Up Reason Comments Procedure Reason Onset Date Comments Refill Request 12/04/2022 Reason Comments Plastic Surg Skin Care Pt purchased Obag i Clear 4% from [facility]/mailed. Reason Comments Procedure Laser tx Reason Comments Botulinum Toxin Injection Care Teams (unrecognized sec tion and content) [facility] Department Floorperson Relationship Specialty Start Date End Date SemajlázaroVarun weaver Tomás PCP - General Family Practice 05/20/17 [facility] Department Floorperson Relationship Specialty Start Date End Date AstoneloiseVarun shaver PCP - General Family Practice 05/20/17 Team Status: Inactive Member Role Status Dates VERA Piña Primary Care Provider Active Brady Shaikh DO Emergency Provider Active Team Status: Inactive Member Role Status Dates Gaurav Marr MD Attending Provider Active VERA Piña Primary Care Provider Active Team Status: Inactive Member Role Status Dates Prateek Hicks MD Attending Provider Active VERA Piña Primary Care Provider Active Team Status: Inactive Member Role Status Dates Prateek Hicks MD Admit Provider, Attending Provider A ctive VERA Piña Primary Care Provider Active Team Status: Active Member Role Status Dates VERA Piña Primary Care Provider Active [facility] Department Floorperson Relationship Specialty Start Date End Date AstondominickVarun pierre PCP - General Family Medicine 05/20/17 [facility] Department Floorperson Relationship Specialty Start Date End Date AstondominickVarun pierre PCP - General Family Medicine 05/20/17 [facility] Department Floorperson Relationship Specialty Start Date End Date Varun Card PCP - General Family Medicine 05/20/17 [facility] Department Floorperson Relationship Specialty Start Date End Date Romeo Chaidez DO [address] [place] [address] PCP - General Family Medicine 09/18/23 [facility] Department Floorperson Relationship Specialty Start Date End Date Romeo ChaidezDO [address] [place] [address] PCP - General Family Medicine 09/18/23 INFORMATION SOURCE (unrecogn ized section and content) DATE CREATED AUTHOR 12/07/2022 [facility] DATE CREATED AUTHOR AUTHOR'S ORGANIZ ATION 03/13/2023 [facility] DATE CREATED AUTHOR AUTHOR'S ORGANIZ ATION 02/07/2024 [facility] DATE CREATED AUTHOR AUTHOR'S ORGANIZ ATION 08/21/2024 [facility] DATE CREATED AUTHOR AUTHOR'S ORGANIZ ATION 08/28/2024 [facility] DATE CREATED AUTHOR AUTHOR'S ORGANIZ ATION 09/10/2024 [facility] FOR RECORDS PERTAINING TO PATIENTS WHO ARE [...] BE BASED ON THE PRIMARY CLINICAL RECORDS. [employer] provides no warranty or guarantee of the accuracy or completeness of information in this document.
--- NOTE | 2024-09-12 01:46 | CT_ITS ---
The [address] [address] Patient Name: NANCY NICOLE MRN: [id number] date: 1975 Sex: F Assigned Patient Location: ER Current Patient Location: Accession/Order Number: [id number] Exam Date: 09/12/2024 02:22 Report Date: 09/12/2024 04:06 At the request of: MADELIN SWANSON Procedure: CT abdomen pelvis wo con CT ABDOMEN PELVIS WITHOUT CONTRAST HISTORY: Right flank pain COMPARISON: CT abdomen and pelvis 03/30/2014. TECHNIQUE: Thin section axial CT images were obtained from the lung bases to the pubis symphysis. This CT exam was performed using one or more of the following dose reduction techniques: Automated exposure control, adjustment of the mA and/or kV according to patient size, or use of iterative reconstruction technique. Thin section coronal and sagittal images were reconstructed from the axial data set. All images were reviewed and interpreted. CONTRAST: None. FINDINGS: Assessment of solid organs is limited without the benefit of IV contrast. LUNG BASES: The lung bases are clear. GE JUNCTION AND STOMACH: Negative. No hiatal hernia. LIVER: Negative. GALLBLADDER AND BILIARY TREE: Normal gallbladder. SPLEEN: Negative. PANCREAS: Negative. ADRENALS: Negative. KIDNEYS AND URETERS: Negative. No urinary tract calculi or hydronephrosis. No renal masses or cysts are evident. SMALL BOWEL: Negative. LARGE BOWEL: Moderate stool retention. Low-lying cecum. Postoperative changes in cecal and terminal ileal region. Correlate with history. No acute colitis. Large bowel otherwise negative. APPENDIX: The appendix is not clearly identified and there are no secondary findings to suggest acute appendicitis. AORTA: The abdominal aorta is normal size. IVC: Negative. LYMPH NODES: There is no lymphadenopathy. BLADDER: Normal bladder. BONES: Unremarkable. COMMENTS: No ascites. No free air CT/CT abdomen pelvis wo con IMPRESSION: 1. No acute findings or abnormality to explain patient's right flank pain. 2. Moderate stool retention. Correlate for constipation. These imaging findings do not exclude additional clinically significant abnormalities. This report should be interpreted in the context of clinical information including patient symptoms and available laboratory findings. Follow-up imaging or other interventions may be appropriate, if indicated by your clinical impression. Electronically authenticated by: ANEL DORADO Date: 09/12/2024 04:06
[2024-09-12] MEDS: ONDANSETRON PF 4 MG/2 ML VIAL IV (02:09)
[2024-09-12] MEDS: HYDROMORPHONE HCL 0.5 MG/0.5 ML SYRINGE IV (02:09)
[2024-09-12 02:22] LABS: Basophils Absolute Auto 0.1 10^3/uL (0.0-0.1); Basophils Percent Auto 0.7 % (0.2-2.0); Eosinophils Absolute Auto 0.4 10^3/uL (0.0-0.7); Eosinophils Percent Auto 2.6 % (0.9-7.0); Hematocrit 38.2 % (36.0-48.0); Hemoglobin 12.5 g/dL (12.0-16.0); Immature Granulocytes Abs Auto 0.04 10^3/uL (0.00-0.03); Immature Granulocytes Pct Auto 0.3 % (0.0-0.5); Lymphocytes Absolute Auto 2.6 10^3/uL (1.2-3.8); Mean Corpuscular HGB Conc 32.7 g/dL (29.9-35.2); Mean Corpuscular Hemoglobin 28.7 pg (26.7-34.0); Mean Corpuscular Volume 87.6 fL (81.0-99.0); Monocytes Absolute Auto 0.9 10^3/uL (0.3-0.8); Monocytes Percent Auto 6.2 % (1.7-12.0); Neutrophils Absolute Auto 9.8 10^3/uL (1.4-6.5); Neutrophils Percent Auto 71.2 % (43.0-75.0); Platelet Count 447 10^3/uL (150-450); Red Blood Count 4.36 10^6/uL (4.20-5.40); Red Cell Distribution Width 12.6 % (11.0-15.0); White Blood Count 13.8 10^3/uL (4.0-11.0)
[2024-09-12 02:30] LABS: Anion Gap 14.1; BUN Creatinine Ratio 16.9; Calcium 9.3 mg/dL (8.5-10.1); Carbon Dioxide 26.8 mmol/L (21.0-32.0); Chloride 103 mmol/L (98-107); Estimated GFR (African America >60 (>=60 mL/min/1.73m^2); Estimated GFR (Non-African Ame >60 (>=60 mL/min/1.73m^2); Glucose 115 mg/dL (74-106); Potassium 3.9 mmol/L (3.5-5.1); Sodium 140 mmol/L (136-145)
[2024-09-12 03:27] LABS: Bilirubin Urine NEGATIVE (NEGATIVE); Blood Urine MODERATE (NEGATIVE); Clarity Urine CLEAR (CLEAR); Color Urine LT. YELLOW (YELLOW); Glucose Urine UA NEGATIVE (NEGATIVE); Ketones Urine NEGATIVE (NEGATIVE); Leukocyte Esterase Urine TRACE (NEGATIVE); Nitrite Urine POSITIVE (NEGATIVE); Protein Urine NEGATIVE (NEG/TRACE); Urobilinogen Urine 0.2 EU/dL (0.2-1.0)
[2024-09-12 03:28] LABS: Urine Microscopic Indicated YES
[2024-09-12 03:38] LABS: Bacteria Urine LARGE #/HPF (NONE SEEN); Cast Seen? NONE SEEN #/LPF (NONE SEEN); Crystals Seen? None Seen #/HPF (None Seen); Mucus Urine NONE SEEN (NONE SEEN); RBC Urine 0-2 #/HPF (0-2); Squamous Epithelial Cell Urine MODERATE #/LPF (NONE/RARE); Urine Culture Indicated YES
--- NOTE | 2024-09-12 04:33 | ED_ITS ---
HPI HPI - General Adult General Chief complaint: Back Pain/Injury Stated complaint: back pain Time Seen by Provider: 09/12/24 01:30 Source: patient Mode of arrival: Wheelchair Limitations: no limitations History of Present Illness HPI narrative: 48-year-old female to the emergency department with chief complaint of right- sided flank pain. Onset tonight. She denies any fever, sweats, chills. No numbness, weakness, tingling, difficulty walking. No bowel bladder incontinence or retention. She normally takes NSAIDs for aches and pains but cannot take it due to a surgery planned for Friday. She is otherwise at her baseline health. Related Data Home Medications ?Medication ?Instructions ?Recorded ?Confirmed dextroamphetamine-amphetamine ER 20 mg PO DAILY 12/28/23 09/12/24 20 mg 24hr capsule,extend release (Adderall XR) fluoxetine 20 mg capsule 20 mg PO QPM 12/28/23 09/12/24 ketorolac 10 mg tablet 10 mg PO TID PRN pain 12/28/23 09/12/24 pramipexole 0.75 mg tablet 0.75 mg PO TID 12/28/23 09/03/24 cyclobenzaprine 10 mg tablet 10 mg PO BID 09/03/24 09/12/24 dextroamphetamine-amphetamine ER 10 mg PO QNOON 09/03/24 09/03/24 10 mg 24hr capsule,extend release dupilumab 300 mg/2 mL subcutaneous 300 mg subcut .[id number] 09/03/24 09/03/24 pen injector (Dupixent) estradiol 0.05 mg/24 hr semiweekly 1 patch transdermal .every 3 days 09/03/24 09/03/24 transdermal patch (Leonarda) gabapentin 100 mg capsule 100 mg PO Q12H 09/03/24 09/12/24 hydroxyzine HCl 10 mg tablet 10 mg PO DAILY 09/03/24 09/12/24 magnesium 200 mg tablet 200 mg PO DAILY 09/03/24 09/03/24 onabotulinumtoxinA 100 unit 09/03/24 solution for injection (Botox) rimegepant 75 mg disintegrating 75 mg PO DAILY PRN migraine 09/03/24 09/03/24 tablet (Nurtec ODT) headache Previous Rx's ?Medication ?Instructions ?Recorded ondansetron HCl 4 mg tablet 4 mg PO Q6H PRN nausea and 12/28/23 vomiting #12 tabs tizanidine 4 mg tablet 4 mg PO TID PRN muscle spasticity 12/28/23 3 days #9 tabs cephalexin 500 mg capsule 500 mg PO Q6H 7 days #28 caps 09/12/24 docusate sodium 100 mg capsule 100 mg PO BID #14 caps 09/12/24 (Colace) ondansetron 4 mg disintegrating 4 mg PO Q8H PRN nausea and 09/12/24 tablet vomiting 4 days #16 tabs oxycodone-acetaminophen 5 mg-325 1 tab PO Q6H PRN pain 3 days #12 09/12/24 mg tablet (Percocet) tabs polyethylene glycol 3350 17 17 g PO DAILY PRN constipation 09/12/24 gram/dose oral powder (Miralax) #238 grams Allergies Allergy/AdvReac Type Severity Reaction Status Date / Time adhesive tape Allergy Intermediate Rash Verified 09/12/24 01:36 Penicillins Allergy Intermediate Rash Verified 09/12/24 01:36 sumatriptan (From Imitrex) Allergy Intermediate Unknown Verified 09/12/24 01:36 promethazine (From Phenergan) Allergy Unknown Verified 09/12/24 01:36 Opioid HPI Opioid Management Most Recent Opioid Data: Last Pain Scale 8 09/12/24 01:37 09/12/24 Review of Systems ROS Status of ROS 10 or more systems reviewed and unremark able except as noted in history and below [facility] Medical History (Updated 09/12/24 @ 04:18 by Riley Santos MD) Anemia ?D64.9 - Anemia, unspecified (ICD-10) Anxiety ?F41.9 - Anxiety disorder, unspecified (ICD-10) Depression ?F32.A - Depression, unspecified (ICD-10) Sleep apnea ?G47.30 - Sleep apnea, unspecified (ICD-10) Chronic obstructive pulmonary disease ?J44.9 - Chronic obstructive pulmonary disease, unspecified (ICD-10) Migraine ?G43.909 - Migraine, unspecified, not intractable, without status migrainosus (ICD-10) Narcolepsy ?G47.419 - Narcolepsy without cataplexy (ICD-10) ADD (attention deficit disorder) ?F98.8 - Other specified behavioral and emotional disorders with onset usually occurring in childhood and adolescence (ICD-10) Constipation ?K59.00 - Constipation, unspecified (ICD-10) Dyspnea on exertion ?R06.09 - Other forms of dyspnea (ICD-10) Abdominal adhesions ?K66.0 - Peritoneal adhesions (postprocedural) (postinfection) (ICD-10) Bowel obstruction ?K56.609 - Unspecified intestinal obstruction, unspecified as to partial versus complete obstruction (ICD-10) Lipoma ?D17.9 - Benign lipomatous neoplasm, unspecified (ICD-10) Ovarian cyst ?N83.209 - Unspecified ovarian cyst, unspecified side (ICD-10) IBS (irritable bowel syndrome) ?K58.9 - Irritable bowel syndrome, unspecified (ICD-10) GERD (gastroesophageal reflux disease) ?K21.9 - Gastro-esophageal reflux disease without esophagitis (ICD-10) Fibromyalgia ?M79.7 - Fibromyalgia (ICD-10) Endometriosis ?N80.9 - Endometriosis, unspecified (ICD-10) Neck pain ?M54.2 - Cervicalgia (ICD-10) Cervical stenosis of spine ?M48.02 - Spinal stenosis, cervical region (ICD-10) Surgical History (Updated 09/03/24 @ 09:48 by Ansley Carmen NP) History of breast augmentation ?Z98.82 - Breast implant status (ICD-10) H/O abdominoplasty ?Z98.890 - Other specified postprocedural states (ICD-10) H/O abdominal surgery ?Z98.890 - Other specified postprocedural states (ICD-10) History of intestinal surgery ?Z98.890 - Other specified postprocedural states (ICD-10) History of appendectomy ?Z90.49 - Acquired absence of other specified parts of digestive tract (ICD- 10) History of hysterectomy ?Z90.710 - Acquired absence of both cervix and uterus (ICD-10) S/P excision of lipoma ?Z98.890 - Other specified postprocedural states (ICD-10) ?Z86.018 - Personal history of other benign neoplasm (ICD-10) Family History (Updated 09/03/24 @ 09:48 by Ansley Carmen NP) Other Alcoholism Anxiety Family history of cancer Family history of coronary artery disease Family history of diabetes mellitus Family history of hypertension Heart disease [facility] health disorder Rheumatoid arthritis Social History (Updated 09/03/24 @ 09:38 by Ansley Carmen NP) Within the past year, how often did you have a drink containing alcohol: never Score interpretation: A score less than 3 is consistent with normal alcohol consumption. Smoking status: Current every day smoker What tobacco products do you use: cigarettes Packs per day: 1 Years smoked: 30 Smoking pack-years: 30.00 Non-prescribed substance use: cannabis (any form) Highest level of school completed/degree received: some college, no degree Exam Narrative Exam Narrative: VITALS: I have reviewed the triage vital signs. GENERAL: Well developed, well appearing adult in no acute distress. NEURO: Alert and oriented. Moves all extremities. Face is symmetric and expressive. EYES: PERRL. No scleral icterus or conjunctival injection. No discharge. HENT: Normocephalic, atraumatic. Hearing is grossly intact. Nares grossly patent and without discharge. Mucous membranes moist. NECK: No JVD. Patient moves neck without restriction. CARDIO: Rhythm regular. Normal rate. No murmur, rub, or gallop. Pulses equal bilaterally in the upper and lower extremity. No lower extremity edema. PULM: Lungs clear to auscultation in all magana. No wheezes, rales, or rhonchi. No conversational dyspnea. No splinting, stridor, or accessory muscle use. GI/: Abdomen is soft and non-tender. Normoactive bowel sounds. EXTREMITIES: Symmetric muscle bulk. No joint swelling. No clubbing, cyanosis, or deformity. SKIN: Warm and dry. Normal turgor. No rash or lesions appreciated. PSYCH: Mood, affect, and interaction is appropriate to the setting. Constitutional Vital Signs, click to edit/add: Last Vital Signs Temp 97.4 F L 09/12/24 01:31 Pulse 84 09/12/24 01:31 Resp 18 09/12/24 01:31 BP 115/79 09/12/24 01:31 Pulse Ox 98 09/12/24 01:31 O2 Del Method Room Air 09/12/24 01:31 Course Vital Signs Vital signs: Vital Signs Temperature 97.4 F L 09/12/24 01:31 Pulse Rate 84 09/12/24 01:31 Respiratory Rate 18 09/12/24 01:31 Blood Pressure 115/79 09/12/24 01:31 Pulse Oximetry 98 09/12/24 01:31 Oxygen Delivery Method Room Air 09/12/24 01:31 Temperature 97.4 F L 09/12/24 01:31 Pulse Rate 84 09/12/24 01:31 Respiratory Rate 18 09/12/24 01:31 Blood Pressure 115/79 09/12/24 01:31 Pulse Oximetry 98 09/12/24 01:31 Oxygen Delivery Method Room Air 09/12/24 01:31 Medical Decision Making MDM Narrative Medical decision making narrative: Well-appearing 48-year-old female to the emergency department with chief complaint of right-sided flank pain. Vital stable, the patient is afebrile. Dilaudid and Zofran for pain. CT scan to rule out kidney stone. Urinalysis. Basic labs. Patient agrees with this plan. No evidence of cord compressing lesion. Lab work reviewed and noted. Urinalysis concerning for acute UTI. Her pain is well-controlled. CT scan without acute findings. Keflex for UTI. MiraLAX and Colace bowel regimen. Zofran for nausea as needed. Percocet for pain. OARRS reviewed. Patient agrees with this plan. Return precautions were discussed. All questions were answered. The patient was discharged home. Medical Records Medical records reviewed: Yes I reviewed the patient's medical records Lab Data Lab results reviewed: Yes I reviewed the patient's lab results Labs: Lab Results 09/12/24 09/12/24 Range/Units 02:08 03:20 WBC 13.8 H (4.0-11.0) 10^3/uL RBC 4.36 (4.20-5.40) 10^6/uL Hgb 12.5 (12.0-16.0) g/dL Hct 38.2 (36.0-48.0) % MCV 87.6 (81.0-99.0) fL MCH 28.7 (26.7-34.0) pg MCHC 32.7 (29.9-35.2) g/dL RDW 12.6 (11.0-15.0) % Plt Count 447 (150-450) 10^3/uL MPV 9.0 L (9.5-13.5) fL Neut % (Auto) 71.2 (43.0-75.0) % Lymph % (Auto) 19.0 L (20.5-60.0) % Chase % (Auto) 6.2 (1.7-12.0) % Eos % (Auto) 2.6 (0.9-7.0) % Baso % (Auto) 0.7 (0.2-2.0) % Neut # (Auto) 9.8 H (1.4-6.5) 10^3/uL Lymph # (Auto) 2.6 (1.2-3.8) 10^3/uL Chase # (Auto) 0.9 H (0.3-0.8) 10^3/uL Eos # (Auto) 0.4 (0.0-0.7) 10^3/uL Baso # (Auto) 0.1 (0.0-0.1) 10^3/uL Abs Immat Gran (auto) 0.04 H (0.00-0.03) 10^3/uL Imm/Tot Granulo (auto) 0.3 (0.0-0.5) % Sodium 140 (136-145) mmol/L Potassium 3.9 (3.5-5.1) mmol/L Chloride 103 (98-107) mmol/L Carbon Dioxide 26.8 (21.0-32.0) mmol/L Anion Gap 14.1 BUN 12.0 (7.0-18.0) mg/dL Creatinine 0.71 (0.55-1.02) mg/dL Est GFR ( Amer) >60 (>=60 mL/min/1.73m^2) Est GFR (Non-Af Amer) >60 (>=60 mL/min/1.73m^2) BUN/Creatinine Ratio 16.9 Glucose 115 H (74-106) mg/dL Calcium 9.3 (8.5-10.1) mg/dL Urine Color Lt. yellow (YELLOW) Urine Clarity Clear (CLEAR) Urine pH 6.0 (5.0-9.0) Ur Specific [place] 1.020 (1.005-1.025) Urine Protein Negative (NEG/TRACE) mg/dL Urine Glucose (UA) Negative (NEGATIVE) mg/dL Urine Ketones Negative (NEGATIVE) mg/dL Urine Occult Blood Moderate A (NEGATIVE) Urine Nitrite Positive A (NEGATIVE) Urine Bilirubin Negative (NEGATIVE) Urine Urobilinogen 0.2 (0.2-1.0) EU/dL Ur Leukocyte Esterase Trace A (NEGATIVE) Urine RBC 0-2 (0-2) #/HPF Urine WBC 5-10 A (NONE SEEN) #/HPF Ur Squamous Epith Cells Moderate A (NONE/RARE) #/LPF Urine Crystals None seen (None Seen) #/HPF Urine Bacteria Large A (NONE SEEN) #/HPF Urine Casts None seen (NONE SEEN) #/LPF Urine Mucus None seen (NONE SEEN) Ur Culture Indicated? Yes Discharge Plan Discharge Chief Complaint: Back Pain/Injury Clinical Impression: Pyelonephritis, Constipation Patient Disposition: Home, Self-Care Time of Disposition Decision: 04:18 Condition: Good Mode of Transportation: Private Vehicle Prescriptions / Home Meds: New cephalexin 500 mg capsule 500 mg PO Q6H 7 Days Qty: 28 0RF ondansetron 4 mg tablet,disintegrating 4 mg PO Q8H PRN (Reason: nausea and vomiting) 4 Days Qty: 16 0RF polyethylene glycol 3350 [Miralax] 17 gram/dose powder 17 g PO DAILY PRN (Reason: constipation) Qty: 238 0RF docusate sodium [Colace] 100 mg capsule 100 mg PO BID Qty: 14 0RF oxycodone-acetaminophen [Percocet] 5-325 mg tablet 1 tab PO Q6H PRN (Reason: pain) 3 Days Qty: 12 0RF No Action cyclobenzaprine 10 mg tablet 10 mg PO BID dextroamphetamine-amphetamine 10 mg capsule,extended release 24hr 10 mg PO QNOON Dupixent Pen 300 mg/2 mL pen injector 300 mg SUBCUT .[id number] estradiol [Leonarda] 0.05 mg/24 hr patch semiweekly 1 patch transdermal .every 3 days gabapentin 100 mg capsule 100 mg PO Q12H hydroxyzine HCl 10 mg tablet 10 mg PO DAILY Nurtec ODT 75 mg tablet,disintegrating 75 mg PO DAILY PRN (Reason: migraine headache) Botox 100 unit recon soln magnesium 200 mg tablet 200 mg PO DAILY pramipexole 0.75 mg tablet 0.75 mg PO TID dextroamphetamine-amphetamine [Adderall XR] 20 mg capsule,extended release 24hr 20 mg PO DAILY fluoxetine 20 mg capsule 20 mg PO QPM ketorolac 10 mg tablet 10 mg PO TID PRN (Reason: pain) tizanidine 4 mg tablet 4 mg PO TID PRN (Reason: muscle spasticity) 3 Days Qty: 9 0RF ondansetron HCl 4 mg tablet 4 mg PO Q6H PRN (Reason: nausea and vomiting) Qty: 12 0RF Print Language: Gambian Instructions: Constipation (ED), Kidney Infection (ED) Additional Instructions: Call the office of your primary care doctor to arrange for follow-up within the above-stated timeframe. Your ED visit was focused on your acute issue and does not replace primary care. You should review your labs, imaging, and diagnoses from this ED visit with your primary care physician. There may be non-emergent/ incidental findings that need further evaluation. You should review your vital signs including blood pressure with your PCP. If you were prescribed medications you should discuss possible side-effects and drug interactions with your pharmacist. Call 911 or go to the nearest Emergency Department if you develop any new or worsening symptoms. Seek immediate medical attention if you develop: worsening abdominal pain, new or worsening nausea, new or worsening vomiting, new or worsening diarrhea, chest pain, shortness of breath, pain with urination, problems urinating, fever, chills, weakness, or any new or worsening symptoms. Referrals: Physician,Non-Staff, MD [Primary Care Provider] - 1 week
[2024-09-12] MEDS: OXYCODONE HCL/ACETAMINOPHEN 5MG/325MG 1 TAB PO (04:42)
[2024-09-12] MEDS: CEPHALEXIN 500 MG CAPSULE PO (04:42)
== END 2024-09-12 04:51 | disposition home or self-care (01) ==
PROVIDERS: Emergency Provider Student in an Organized Health Care Education/Training Program
DX: K59.00 Constipation, unspecified (principal); N12 Tubulo-interstitial nephritis, not specified as acute or chronic; F17.210 Nicotine dependence, cigarettes, uncomplicated
CPT/HCPCS: 36415; 74176; 80048; 81001; 85025; 87086; 87150; 87186; 96374; 96375; 99284; J1171; J2405

== ENCOUNTER 2024-09-17 08:45 | Day surgery (SDC) | payer MEDICAID, SELFPAY ==
[2024-09-03 09:59] VITALS: BP 135/90; PULSE 73; TEMP 36.2; O2SAT 99; BMI 31.0
[2024-09-17] VITALS (25 sets, daily range): BP systolic 124–165; BP diastolic 72–107; PULSE 75–96; TEMP 36.2–36.6; O2SAT 91–96; BMI 30.9
--- NOTE | 2024-09-17 | XR_ITS ---
The [address] [address] Patient Name: NANCY NICOLE MRN: [id number] date: 1975 Sex: F Assigned Patient Location: [facility] Current Patient Location: Accession/Order Number: [id number] Exam Date: 09/17/2024 10:30 Report Date: 09/21/2024 11:44 At the request of: CHANEL ZUNIGA Procedure: XR cervical spine 2-3V EXAMINATION: XR cervical spine 2-3V HISTORY: C5-C6 ACDF COMPARISON: XR cervical spine 12/28/2023 FINDINGS: BONES: Intraoperative images demonstrate a metallic pointer overlying the C5-C6 intervertebral disc space. Subsequent images show placement of an intervertebral disc spacer and anterior fixation at C5-6. XR/XR cervical spine 2-3V IMPRESSION: 1. Intraoperative intervertebral disc spacer placement and anterior fusion of C5-6. Electronically authenticated by: EDU POTTER Date: 09/21/2024 11:44
--- OUTSIDE RECORDS SUMMARY | 2024-09-17 09:02 | XMS_ITS | CCD ---
Author Organization [facility] Care Team Providers Care Rn Provider Relations Name Role Phone Josy Isaacs Primary Care Physician Varun Card Primary Care Provider MD Prateek Hicks Attending Provider VERA Isaacs Primary Care Provider MD Gaurav Marr Attending Provider [phone] MD Prateek Hicks Admit Provider DO Brady [...] CHARLIE Attending Unavailable ILIANA BERMUDEZ Consulting Unavailable [facility] Primary Care Unavaila ble DIAB ., CHARLIE Consulting Unavailable MISCDR AU Admitting Unavailable MISC, DR AU Consulting Unavailable MISC, DR AU Attending Unavailable [facility] Primary Care Unavaila ble Romeo Chaidez Primary Care Physician Unavail able Romeo Chaidez Primary Care Physician Unavail able REMIGIO TRUJILLO Attending Unavailable VARUN CARD Primary Care REMIGIO Platt Attending Unavailable VARUN CARD Primary Care Romeo Izquierdo DO Primary Care Provider [phone] PRATEEK HICKS Attending Unavailable PRATEEK HICKS Referring [...] Romeo Chaidez DO Primary Care Unavailable Jeff Inrgam Attending Unavailable Dm ANDINO, Romeo Lopez Primary Care Unavailable Jeff Ingram Admitting Unavailable Omley, Tru H Admitting Unavailable Shaka, Tru H Attending Unavailable Romeo Chaidez DO Primary Care Unavailable Dameon Varner Admitting Unavailable Dameon Varner Attending Unavailable Romeo Chaidez DO Primary Care Unavailable Brenna Yoon Admitting Unavailab Brenna [place] Attending Unavailab Romeo Yun DO Primary Care Unavailable Romeo Chaidez Attending Unavailable oRmeo Chaidez Attending Unavailable Romeo Chaidez Attending Unavailable [...] source) Adhesive Tape Substance Allergy Chemical burn [facility] Penicillins (antibiotic) (1 source) Penicillin; Translations: [penicillin] Drug Allergy Rash [facility] Serotonin-1b and Serotonin-1d Receptor Agonists (1 source) SUMAtriptan; Translations: [sumatriptan] Drug Allergy Eruption of skin (disorder) [facility] (18 sources) Adhesive Tape; Translations: [Tape] Drug allergy 2 Chemical burn, Rash, damon skin [facility] (18 sources) Penicillin; Translations: [penicillin] Drug Allergy Rash [facility] (20 sources) SUMAtriptan; Translations: [sumatriptan] Drug Allergy 2 Eruption of skin (disorder), Other [facility] (4 sources) Penicillins; Translations: [PENICILLINS] Propensity to adverse reactions 3 Rash [facility] Work Phone: (11 sources) traMADol; Translations: [TRAMADOL] Drug Allergy 3 Rash, [facility] (3 sources) Promethazine Drug Allergy 2 body sweats [facility] (5 sources) Penicillins Propensity to adverse reactions 3 Rash [facility] Work Phone: (1 source) Desonide Drug Allergy 5 [facility] Rep[facility] (2 sources) Levamisole; Translations: [Phenergan] Drug Allergy 0 [facility] (1 source) Penicillins Drug allergy (disorder) 5 [facility] (2 sources) Acetaminophen / oxyCODONE Drug Allergy 3 Rash [facility] (2 sources) Penicillins Drug Allergy 3 Other [facility] (2 sources) Fremanezumab-Vfrm Drug Allergy 3 Rash [facility] (2 sources) Wound Dressing Adhesive Drug Allergy 3 Other [facility] (1 source) Adhesive bandage; Translations: [Adhesive Bandage] Propensity to adverse reactions (disorder) [facility] Repository (1 source) Latex; Translations: [Latex Allergy] Propensity to adverse reactions (disorder) [facility] Medications Current Medications Medication Drug Class(es) Dates Sig (Normalized) Sig (Original) 200 actuat albuterol 0.09 mg/actuat dry powder inhaler (15 sources) beta2-Adrenergic Agonist Start: 11-26-2021 take 180 ug by inhalation every six hours albuterol 90 mcg/inh inhalation powder 180 mcg, 2 puff(s), Inhalation, q6hr, 1 EA, Refill(s) 1, [facility] 163, cm, 11/26/21 15:43:00 EST, Height/Length Dosing, 84.3, kg, 11/26/21 15:43:00 EST, Weight Dosing Start Date: 11/26/21 Status: Ordered albuterol 90 mcg/inh inhalation powder (2 sources) Start: 11-26-2021 take 180 ug by inhalation every six hours albuterol 90 mcg/inh inhalation powder 180 mcg, 2 puff(s), Inhalation, q6hr, 1 EA, Refill(s) 1, [facility] 163, cm, 11/26/21 15:43:00 EST, Height/Length Dosing, 84.3, kg, 11/26/21 15:43:00 EST, Weight Dosing Start Date: 11/26/21 Status: Ordered Amphetamine / Dextroamphetamine (4 sources) Central Nervous System Stimulant Start: 09-15-2023 Amphetamine-Dext roamphetamine (ADDERALL PO) 0 Refill(s) 09/15/2023 Active Start: 08-26-2022 take 1 capsule by mo [facility] once daily in the morning amphetamine-dextroamphetamine 10 mg oral capsule, extended release 10 mg, 1 cap(s), Oral, qAM, 30 cap(s), Refill(s) 0, [facility] #[id number], 163, cm, 08/26/22 16:42:00 EDT, Height/Length Dosing, [...] qAM, # 30 cap(s), Refills(s) 0, Pharmacy: [facility]/pharmacy #[id number], 163, cm, 08/11/24 14:51:00 EDT, Height/Length Dosing, 82, kg, 08/11/24 14:51:00 EDT, Weight Dosing Start Date: 08/24/24 Status: Ordered Start: 08-24-2024 take 1 capsule by mo [facility] once daily in the morning Adderall XR 20 mg Cap-ER 20 mg = 1 cap(s), Oral, qAM, # 30 cap(s), Refills(s) 0, Pharmacy: [facility]/pharmacy #[id number], 163, cm, 08/11/24 14:51:00 EDT, Height/Length Dosing, 82, kg, 08/11/24 14:51:00 EDT, Weight Dosing Start Date: 08/24/24 Status: Ordered Start: 07-21-2023 take 1 capsule by mo uth once daily in the morning Adderall XR 10 mg Cap-ER 10 mg = 1 cap(s), Oral, qAM, # 30 cap(s), Refills(s) 0, Pharmacy: [facility]/pharmacy #[id number], 163, cm, 05/18/24 11:42:00 EDT, Height/Length Dosing, 80.1, kg, 05/18/24 11:42:00 EDT, Weight Dosing Start Date: 07/27/24 Status: Ordered Start: 07-21-2023 take 1 capsule by mo uth once daily in the morning Adderall XR 20 mg Cap-ER 20 mg = 1 cap(s), Oral, qAM, # 30 cap(s), Refills(s) 0, Pharmacy: [facility]/pharmacy #[id number], 163, cm, 05/18/24 11:42:00 EDT, Height/Length Dosing, 80.1, kg, 05/18/24 11:42:00 EDT, Weight Dosing Start Date: 07/12/24 Status: Ordered Start: 05-13-2023 take 1 capsule by mo uth once daily in the morning Adderall XR 10 mg Cap-ER 10 mg = 1 cap(s), Oral, qAM, # 30 cap(s), Refills(s) 0, Pharmacy: [facility] #[id number], 163, cm, 04/04/23 12:54:00 EDT, Height/Length Dosing, 82, kg, 04/04/23 12:54:00 EDT, Weight Dosing Start Date: 05/13/23 Status: Ordered Start: 05-13-2023 take 1 capsule by [place] once daily in the morning Adderall XR 20 mg Cap-ER 20 mg = 1 cap(s), Oral, qAM, # 30 cap(s), Refills(s) 0, Pharmacy: [facility] #[id number], 163, cm, 04/04/23 12:54:00 EDT, Height/Length Dosing, 82, kg, 04/04/23 12:54:00 EDT, Weight Dosing Start Date: 05/13/23 Status: Ordered Start: 04-04-2023 take 1 capsule by [place] once daily in the morning Adderall XR 10 mg Cap-ER 10 mg = 1 cap(s), Oral, qAM, # 30 cap(s), Refills(s) 0, Pharmacy: [facility] #[id number], 163, cm, 04/04/23 12:54:00 EDT, Height/Length Dosing, 82, kg, 04/04/23 12:54:00 EDT, Weight Dosing Start Date: 04/04/23 Status: Ordered Start: 04-04-2023 take 1 capsule by [place] once daily in the morning Adderall XR 20 mg Cap-ER 20 mg = 1 cap(s), Oral, qAM, # 30 cap(s), Refills(s) 0, Pharmacy: [facility] #[id number], 163, cm, 04/04/23 12:54:00 EDT, Height/Length Dosing, 82, kg, 04/04/23 12:54:00 EDT, Weight Dosing Start Date: 04/04/23 Status: Ordered Start: 12-30-2022 End: 01-29-2023 take 1 capsule by mouth once daily in the morning amphetamine-dextroamphetamine 20 mg Cap-ER 20 mg = 1 cap(s), Oral, qAM, Take one capsule daily in the morning., X 30 day(s), # 30 cap(s), Refills(s) 0, Pharmacy: [facility] #[id number], 163, cm, 12/30/22 10:28:00 EST, Height/Length Dosing, 85.4, kg, 12/30/22 10:28:00 EST, Weight Dosing Start Date: 12/30/22 Stop Date: 01/29/23 Status: Ordered Start: 12-30-2022 End: 01-29-2023 take 1 capsule by mouth once daily amphetamine-dextroamphetamine 10 mg Cap-ER 10 mg = 1 cap(s), Oral, Daily, Take one capsule daily in afternoon., X 30 day(s), # 30 cap(s), Refills(s) 0, Pharmacy: [facility] #[id number], 163, cm, 12/30/22 10:28:00 EST, Height/Length Dosing, 85.4, kg, 12/30/22 10:28:00 EST, Weight Dosing Start Date: 12/30/22 Stop Date: 01/29/23 Status: Ordered Start: 10-30-2022 End: 11-29-2022 take 1 capsule by mouth once daily in the morning Adderall XR 20 mg Cap-ER 20 mg = 1 cap(s), Oral, qAM, X 30 day(s), # 30 cap(s), Refills(s) 0, Pharmacy: [facility] #[id number], 163, cm, 10/30/22 10:02:00 EST, Height/Length Dosing, 86.1, kg, 10/30/22 10:02:00 EST, Weight Dosing Start Date: 10/30/22 Stop Date: 11/29/22 Status: Ordered Start: 08-26-2022 take 1 capsule by [place] once daily in the morning amphetamine-dextroamphetamine 10 mg oral capsule, extended release 10 mg, 1 cap(s), Oral, qAM, 30 cap(s), Refill(s) 0, [facility] #[id number], 163, cm, 08/26/22 16:42:00 EDT, Height/Length Dosing, [...] QID, # 40 cap(s), Refills(s) 0, Pharmacy: [address], 163, cm, 04/28/22 11:34:00 EDT, Height/Length [...] spasm, # 60 tab(s), Refills(s) 0, Pharmacy: [facility]/pharmacy #[id number], 163, cm, 08/11/24 14:51:00 [...] (one) time 12/23/2023 Active 84 hr estradiol 0.54734 mg/hr transdermal system (2 sources) Estrogen Start: [...] Daily, # 90 cap(s), Refills(s) 4, Pharmacy: [facility] [id number], 163, cm, 05/18/24 11:42:00 EDT, Height/Length Dosing, [...] Bedtime, # 90 tab(s), Refills(s) 4, Pharmacy: [facility] #[id number], 163, cm, 05/18/24 11:42:00 EDT, Height/Length Dosing, 80.1, kg, 05/18/24 11:42:00 EDT, Weight Dosing Start Date: 05/31/24 Status: Ordered Start: 02-25-2022 take 1-2 tablets by mouth four times daily as needed hydrOXYzine hydrochloride 10 mg Tab 20 mg = 2 tab(s), Oral, QID, PRN for itching, 1-2 tabs PRN, # 80 tab(s), Refills(s) 0, Pharmacy: [facility] [facility], 163, cm, 02/25/22 16:04:00 EDT, Height/Length Dosing, [...] Daily, # 30 tab(s), Refills(s) 1, Pharmacy: [facility]/pharmacy #[id number], 163, cm, 08/11/24 14:51:00 [...] food., # 24 tab(s), Refills(s) 0, Pharmacy: [facility] [address] [facility], 163, cm, 02/25/22 16:04:00 EDT, Height/Length Dosing, 86.2, kg, 02/25/22 16... Start Date: 02/25/22 Status: Ordered sodium chloride 0.111 meq/ml nasal solution (2 sources) sodium chloride ([place]) 0.65 % nasal spray 2 sprays in [...] every four to six hours Hydrocodone-Acetam inophen ([place]) 5-325 mg tablet Discontinued 1 TAB PO EVERY 4-6 HOURS 40 7 March 25, 2019 December 28, 2019 7:57am cimetidine 200 mg oral tablet (1 source) Histamine-2 Receptor Antagonist Start: 03-25-2019 End: 12-28-2019 take 1 tablet by mouth once daily Cimetidine (Acid Mandrel Press Hand (Cimetidine)) 200 mg tablet Discontinued 200 MG [...] Other [facility] (current) drug therapy; Translations: [OTH MARRIAGE AND FAMILY THERAPIST CURRENT DRUG THERAPY] Onset: 11-26-2022 Episodic Other [...] PM EST With: Romeo Chaidez DO Where: [facility] [address] [place] [address]- Medications What How Much When Why Instructions [...] You ma (more content not included)... Normal [facility] CHEMISTRYOrdered By: SYSTEM SYSTEM on 09-08-2024 25-hydroxyvitamin D3 [Mass/Vol] 13.3 ng/mL Low 30.0 - 100.0 ng/mL Remisol Chem Family Medicine Office/Clini c Noteon 09-08-2024 Family Medicine Office/Clinic Note Family Medicine Office/Clinic Note Chief Complaint surgical clearance HPI Staff Patient here today fir Surgical clearance SHIRIN 08/11/24 Labs 10/01/23 Patient getting cervical fusion 09/17/24 in [place] History of Present Illness social The patient is not The patient is not currently working; on disability for migraines still stuck going to hospital every month The patient has 3 biologic child(troy) - and 2 step children 2 grandchild(troy) home-schooling her grand children Screening: Colonoscopy: Cologuard completed 2023; states was negative Mammogram: overdue DEXA: age Pap: PROJECT SURVEYOR - Dr. Sarah DAVIS Smokers/ former smokers: Low dose lung CT: 06/04/2024 - Negative, continue with annual screening List of Providers: Neurology - Dr. Lisa Martínez Test Technician - Dr. Sarah DAVIS Derm - Dr. Francis Quezada - Dr. [place] JordanCharmaine Hoover patient reports that neurologist recommended gabapentin [...] no - History of ischemic disease (prior MA, positive stress test, current chest pain considered [...] procedures Superficial procedures Cataract surgery Breast surgery [place] [employer] (APA) Physical Status Classification [...] dry Neurologic: (more content not included)... Normal [facility] Comment on above: Result Comment: Elec tronically Signed By: Romeo Chaidez DO\kassandra\Date and Time Signed: 09/08/24 12:18 EST Vitamin D 25 Hydroxyon 09-08 25-hydroxyvitamin D3 [Mass/Vol] 13.3 ng/mL Low 30.0-100.0 [facility] Comment on above: Performed By: #### [id number] #### [facility] [address] [place] [address] Coding Summaryon 08-26-2024 Coding Summary HTMLBase 64 ZwogqquvXLt1gDo+PGhl YWQ+YI7RTUHhS62kbDWq zZ6wA7EFADuSDdlgGXRJ NTzBVmRhunSpBQ2psFKw ZXJu IC8+TI5eJBQoBhoegUHg b0J9uPQ0P84ihg1zXJkg oER6ZPXiYkSujxuil7mg xYg6ICvdTkyrBtUh TXVllR55RLS3oQ19Ry56 eVKhdWKub7ogsEx9YbOk LVJiVDA0pHymLTkoh4Iy OEBxF20rcFNfy2S2 IGNvbGxhcHNlOyBlbXB0 jQ4lUWpbyrveg0dnkrxq Sbj5ky25dYVyw3Y5tWF4 R1MkuxT5KBCujABi JiyynHEIqZ9doqqmh0pi eynoTkEaBKMpPEe4FPu9 KWPhmTebTvYmVY29LNM4 VDKoacXgF0VqOVQv qYyjGfE2k3W1Hg7OI3QU OpquE7IJDKBPKQyklFK+ XP89dq69P1AjSowaWzc4 MXKcBXB0lXK4cS1z CSHjRBnvj6D5bYA3Y0Pp xaEgwj0he2ujQTZyXCem Y17wjAOmc6N9YWJjzAM4 VEGabDkjVsNhjW89 Oyc+JUJleGxan7RtPxam w4wnb6jadNb9QcqtWZMn pbPlgGafCIU7t7AoPq3d BZHlwMC1eJK0kT2x YkUpAaU1LUxhY498AlZu pHHwCbheX21wT9GtpPG+ BKOaLrn7HZLlmPcxKX7z C4QnOIZpbwykmQMw yAxaPK5nHXEkqtvcEHKv mI9fZQYgE8o8MxMjQhN9 HRinM4BpGSCveyevCv58 dR5iBeMzHxI7SStq H3OrorQ2GHHniUPhGTmn VVV3Q23yk6A5WCFpVTDu PWF8sQX6qV8fmYcftssu bGVmdDsgdmVydGlj RShpXMdcX330JDQzcHsp PkNvZGluZyBEYXRlOiAg MTAvMjQvMjAyNDwvdGQ+ EPHpALG2iBduPIIb nMRuQBaxEx4mcZtanAla XD9iRWUkanqkOEHelI5t KYUyiPYuyOsxPS3qORGv vxory912SkSgEIT3 DQXjxSGjA5YshU2tDeIx PPPuYTGiC5FdvCCxRJnd Y795QJhrGgR2GDThodVw O7HdDYTycQvdPxC6 m3H2Sd9Xs7ZntxnmO6Vx mPNjSeTpQntaEYw2K5Te PjwvdHI+YY55AVHpMG38 XUf7TRF6hDjcVKqi JHAsV4ZgeF3dAhHfWTBd ZGRkOyc+PHRhYmxlIHdp ZHRoPScxMDAlJyBzdHls RF0lPt5fZHNbYXXd pLfvrGQnJnFwp0fdKURj HQijER8fnVnkQ1RfzMP6 SMYgz1e4Gu29I00lU4Lo dXA+HZNofVX0dEY0 rZ0cCtPyYwH0OMcbX317 TwZffJNePhbyv4awq7fw oKh2VuY9XPBpykLplKse QWW2o1UdWw17N56j IHdpZHRoPSIxNSUiIHZh kTvdcw7lnE9yQe3+PGNv uII8cKH6zU8tWhQkEaD0 UVfeJ796JuKsaJZs Yizde8uom0jyoLj4BnVt UTVtryHxsWvwFWN4j2Pz Sa37A6KieMlfj8AxNnw3 mt91oYFfn6R2jFR0 P0IuJWQzbeokcAWwzWoh ER1aLJMcaofrHGGubS2i HTKcG4s6WcTpAsO2DLvk C7XiccH1KQKomLDa TDDhhBGOcH3elognc7cs ptbtYaFiSCEhMKh0MId7 IPQlrManKmEuHTT0HlS5 NSZ6tIBtwK0ndXyd yuacqR6aRrf+WHU5zWXm qTCUYW7qPlcboQC+PHRk JFL5vNhoUMisWZSdrU8l YTIeF0r8NhFyIkB8 EBgdM3EqvmN0OFWcfOFi CFJapBMDcA1zccnbw2ce hvrrZhXhAIWrQLg2SKs6 LWFsaWduOiBsZWZ0 SiX3HSI6aNEomB3urMwv ilupqR6zAoi+QmlydGgg FFU8FIz3L8WuBtd4DMOl tVejYT7rfBRsASva So2sqMhvgPziYD1gEANp ppdmi984OfPpc1yuIHOa oDHpYNksSUD2Y74od0I8 NMIeBVGgYRS0fBV8 mF8ppHpdfprrqVRpaRmu fwPgsVjdPHwxHXzoV648 CLPixVtuTqKtCYn0C1Ra Dae5FVPnfQapJF6a wOJwRRenYn7bpWalqDos GP1aTTIuxqbbk895IzZn z9nxXSDdnLRxZWemDBI4 S31ns4G6ZGFsLREx UXY2cCM4lR7nhJbikawm bGVmdDsgdmVydGljYWwt ESgaD611ELDikHguLeAi dGw0K6BfXhh5DGVa yHobJA4wqKAnYKgmKl8d sCineWduUT1hGBEmxnia f803NpKyz4aeHZTasPBs BNrfZPG5D51kf3V1 SOBfHLJoZHK6eBY8dV9v bGlnbjogbGVmdDsgdmVy iFymYFxzKTxuN792AYJs cDsnPlBhdGllbnQg SUmeTEv2L6BbUmuwtZB+ VE70VAQpHP37zJVnrCGf p1ogyBb4NvVlYVKpIUQ7 zRpiFPbmh5SbNXJu O47yiXAuk5Q0AWJzmNah xQOhUpYugRZ1bS6tLPas pfnqn9kstmllVqpqf1on fg85sL77B41hPKbd ZHRoPSIzMCUiIHZhbGln iu5nyX8xOa8+PGNvbCB3 bED8dO9uADUiVuZ7WSku O649IkSewLGpEebn v1ldg2vyjFa3CyX9IETz mzGbsJgzWNZ9m0AfKw98 C05kXFyiHHBzOBThQMXb EWTbfMmgmc2sxS7u Ii8+MXLcgWC8uLO1jV7n SiAzJxT9ZRmcW410LdRz bTTnQmzuA33cW2QpmMU+ MUJvFgx9FSWteDex QB4mePRuMByvXr7hMEZ0 HfJgVwNwMZymZ1GkUEXk jjumoiadcUG9JCFxOOQl fN64Bc9inMhiWLMw vLCZxM9nhkfuj4jzaehe EaEeZZXxLLj7AVs4DQWk rKieSqKvZVD5FlV6SBA4 aAXxcB5jxOxaamli bE8nF9SwZWPjrqdkPm36 zW8iWdAwEkS0NFdaKvk+ RuMYRJLmCYYXEn3XOLRD RTwvdGQ+PHRkIHN0 qPsaCVxlEQZatD3pZSFp K5e9CcGqEkL7ASsyK9Sk MTDslqgyDn10mS2yErQa FcN9MBmfQ6NxlpF4 PKNddVYiODoeQTJ4O05d m7H9CYNwPLBrBXH6cXA5 rJ1pgZagxszvhNOpcKwp dmVydGljYWwtYWxp F775ETHvxHqcGzEnFgEl XvW3EtF0F8JrRgy3LDBm jBvvRM1opBTjDDcxCb5o yRxulIqlZV3aPBTa dtmhWPUedW0tLLGbeWGr oMuhMF4nATWaucdmi522 VtKfFMR1PZTqzDJhH9Nr vY5qNnWxPLRxDDHp E0GolWGyXUoiG478JSoc HdI8BFZtowAgP0MwWYEl lNbzIbI1z4U7Fq22RGSS ZWFyczwvdGQ+PHRk WZO4iCbeHUuuRGXfyI5x INMtR0v6BnKyJwU6ZImu W6GnENKqhutwNp44gP8a NbReDgU4EBzxS7Gp wzK5ZWKvbPIiFBqsMTP4 W20ib6P8IHJnXPXcNGY8 lHU0xA2mjZptttcolPTz dDsgdmVydGljYWwt HOjrU106GOFnrYbvAlOX TUFMRTwvdGQ+PHRkIHN0 hJvbRRgoZKKfnB5qMIAc W9s1GlItKmO8EDkv G7CkBRDxjnuvYo42aX3p RzFpXbU3GEuyT4AmurU5 VUEvpGKwXOmgDYN5H32k i3M5FJZmFRSuSSY7 eQY8zW1elBpnbjkkaGOb dDsgdmVydGljYWwtYWxp B309RTXreLkzMxRxBUIt TN3mrPkfuRK+PC90 fs49D4CqDmypIhm2XTJu SDK2pJS3sA2rBHGaQLxs u3K4bRI2D6ZdfkGbas8o s6zkVGIvCOuvD24f aCWep2N0OHTggZK3PGJt pAmxKjEalY94Ktw+PGNv sBivz0RaKotva4opd4kl jCy2ZzWtQEHbpcQn rSdjUQC7p6QvHc17L52i IHdpZHRoPSIzMCUiIHZh qSpyiu9taY0gUu3+PGNv mLH4iRC0nF7uRjYj VeV0BUcxZ893ZmWqeYHh Xatwc5bcc3voqCk1WwDt IFVoftYkxKnvGRE1g9Rk Wi01L3AaqOmps6Uw Iow0ky16nLIqu1O2hUP8 J7SlJFKdfbloeKRtiFlf QW3oXMNgwqjtFRHytR8k WSZdE7r7EpNrDaM1 NOsrP3SrgmU1DJMzdXTy DMMagWSYdM3udtyzw8ns oeclKdOjJYYiZDa9JMo7 LWFsaWduOiBsZWZ0 CtI3HQU8rHLylT1eyLzr cogenE6gIdt+HDu2d8ic zUYhHE1frSL8JA47BA47 eABsn2O6jEF5W6Bl SZTpdpuhnrkbfKK5AJLi OLCaiD15Zj9xzHkpJv7r OIWvZDZ6ZILrhWCkI2Uu hO3cYgTjFARjRBKg H9BqzEIkNVxpQ409JHcw PpZ2YHYcwpVqO7OlNRJn cDtnTaI0k3F4Sr4UFK61 YX48JK79lKMat5Y5 tML6T1HvKONagyrerzlo dZX4XJVaHJSqfT27Np4j fXeiEj8mUXLxIXJ4DSZn iNYhU5VmmS9iQgCl PFHrSJHrA8JvyGPuLUff W045JXaxTaU5ROPwjcIl Z7NsAIWnvIxdCoI6e7O8 Au8MQv73ST52PL25 sHVgw7B3fHS6X2DfSAFl wdmtrafbvYS0HQRwJKLt bC80Hm3peHxxNb7eMBRi FZO4FOYdzIHuF6Dh wX1kLvNwVFDpFEDwN1Gc nBBjKQwgQ179SJiqNtM6 QYXxrxGjA0MzVJDfeOri EmR9k2E3Gv8TOQqa qxj8A4IeTvqvkRM+PC90 GKCqQS94aRQfqRTer7mj uGb9JzHkOVJxEVN6jDyc LKndo3JjDGYkS24h [facility] (more content not included)... Normal [facility] CT Chest, Low Dose Screening on 08-24-2024 [...] 08/24/2024 20:29 EDT by Abner Taylor MD [facility] ED Clinical Summaryon 2023 ED Clinical Summary [facility] - Emergency Department [address] [place] [id number] ED Clinical Summary PERSON INFORMATION Name: TOOTIE NICOLE Age: 48 Years Sex: FEMALE : 1975 MRN: Acct#: Visit Reason: Neck pain; Headache; HEADACHE Arrival: 08/14/2024 23:19:27 Discharge: 08/15/2024 00:35:00 LOS: 000 01:16 Check In: 08/14/2024 23:19:27 Checkout:08/15/2024 00:35:00 Address: [address] [place] [address] PCP: Romeo Chaidez DO PROVIDER INFORMATION Provider Role Assigned Unassigned Dameon Varner MD ED Provider 08/14/2024 23:20:21 Laly Kaur PAN WASHER HAND Nurse 08/14/2024 23:32:00 VITALS INFORMATION Vital Sign [...] Home PATIENT EDUCATION INFORMATION Instructions: Cervical Radiculopathy, Qmod-iw-Uopz; Chronic Migraine Headache, Hyat-il-Fvrx Follow-Up: With: Address: When: [place] [address] [place] [address] Within 3 to 5 days DIAGNOSIS: 1:Migraine headache; 2:Cervical radiculopathy Patient Understands: Yes - Patient/family/careg iver verbalizes understanding of instructions given Comment: Normal [facility] ED Patient Summaryon 024 ED Patient Summary [facility] Emergency Department [address] [place] [id number] PATIENT DISCHARGE INSTRUCTIONS Patient Information Name: TOOTIE NICOLE Age: 48 Years Date of : 1975 Reason For Visit: Neck pain; Headache; HEADACHE Arrival Time: 08/14/2024 23:19:27 Primary Care Physician: Romeo Chaidez DO Attending Physician: Dameon Varner MD Comment: Visit Diagnosis: Diagnoses This Visit Cervical radiculopathy (M54.12) Headache (07376154) Migraine headache (G43.909) Neck pain ([id number]) The Pharmacy at [facility] is open Friday through Friday from 9A [...] alcohol and/or drug addiction problems; contact the [facility] 26/05 Crisis Hotline -text 4hope to 741741. [...] documents With: Address: When: [place] [address] [place] [address] Within 3 to 5 days Medication Information: The exam and treatment you received today in the [facility] Emergency Department were for an urgent problem and are not intended as complete care. It is important for you to follow up with a doctor, nurse practitioner, or physician?s electrician assistant for ongoing care. If your symptoms [...] so we can reach you if necessary. [facility] Emergency Department has provided you with a complete list of medications post discharge. Please inform your medical videographer/provider of your visit and for further instruction [...] mmHg Diasto (more content not included)... Normal [facility] Family Medicine Office/Clini c Noteon 08-12-2024 Family Medicine Office/Clinic Note Family Medicine Office/Clinic Note Chief Complaint 3 month F/u HPI Staff Patient here today for 3 month F/U ADHD SHIRIN 05/18/24 Labs 10/01/23 Patient states she had an accident at [employer] and she has had many aches and pains. She is having Neck surgery 09/27/24 Dr Clarke in [place]. She also asking about having labs for [...] was negative Mammogram: overdue DEXA: age Pap: PROJECT SURVEYOR - Dr. Sarah DAVIS Smokers/ former smokers: Low dose lung CT: 06/04/2024 - Negative, continue with annual screening List of Providers: Neurology - Dr. Lisa Martínez Test Technician - Dr. Sarah DAVIS Derm - Dr. Francis Quezada - Dr. Langford - Nas The patient presents for follow-up for ADHD medications. She is not having any medication problems at this time. She states that she is having neck surgery with Dr. Clarke at [place] on 09/17/2024. She has been having pain [...] Chronic Has surgery with Dr. Clarke from [place] 09/17/2024 Placed on cyclobenzaprine 5 mg BID [...] [place] (more content not included)... Normal [facility] Comment on above: Result Comment: Elec [...] PM EST With: Romeo Chaidez DO Where: [facility] [place] [address] [place] [address]- You Need to Schedule the Following Appointments Follow Up with Romeo Chaidez DO, XAVIER, PED When: Within 3 months Comments: 20 min slot cyclobenzaprine 5mg twice a day meloxicam 7.5mg daily have the surgeon send us notes f/u 3 months Where: [address] [place] [address] [phone] Medications What How Much When Why Instructions New cyclobenzaprine (cyclobenzaprine 10 mg Tab) 1 Tablets By Mouth 2 times a day as needed for for spasm Spasm of cervical paraspinous muscle Pickup at [facility]/pharmacy #[id number] New meloxicam (meloxicam 7.5 mg Tab) 1 Tablets By Mouth Every day Cervical disc herniation Cervical radiculopathy at C8 Refills: 1 Pickup at [facility]/pharmacy #[id number] Unchanged albuterol (albuterol 90 [...] physician if questions or concerns Pharmacy Information [facility]/pharmacy #[id number]: [address] [place], [place] [phone] Allergies Imitrex (Rash) Tape (Chemical burn) penicillin [...] depression (more content not included)... Normal [facility] Coding Summaryon 07-27-2024 Coding Summary HTMLBase 64 LifarbtiTUl3jWl+PGhl YWQ+YP1ZJENuO08hbMIs hS8cX1FUYAcEKupsXGMI MLmRQaDvluKaLQ8rkKDc ZXJu IC8+MI7hXQZqWppelSGu q5G0zUD9N19fsh9zLWeh qPG9AJMkLlArxkmem5df cNx4UJpgNrncBxIb LYCscW92BYD5iV57Wj99 vATyaFYzq5plzKo4ZlDz CRQpMAS5jDaeNGusk3Ey OZBfF78zpHYsq0S7 IGNvbGxhcHNlOyBlbXB0 kP5hFCetrezlu3whkhym Oic1pw63rEAwu9Z8cDH8 C3RlbmT1HECvgROi TudleVAGzA6sidogn4uk qpgyEwYtUTKlCNh1VYe1 PTXwuLfsJlLjLA32VSX0 OULsuzCjY4SbTAVq mRmrLkB7m3C1Ua0XK2IB ZcloP8URTFBSPCxopWX+ LS34ns25G4AnEadaHnb0 HCTrLDZ1lZV8jU8g DTQtTNkvy9Y8hEI2I0Rv jzUkgo9we1yjMHWeLTol M26maMYvl6L1WNLaeTK3 QQUybTplFuIljB13 Oyc+HPOtlKrag5XnVede o9iwl0hewZk7AvwcYGZw maWsfVuvMAW5l2VmDu9b WXZteQV8rBD3yV3r NkYkIwG8QZjvM729HhUi rTGlEhqcC88gM2DnbRX+ HNPcVyq7SAUmiEduNY3p G0FsJPJwmsjwcEZu sEvtTZ9hVNVbsflwXMIs gB5tSJCuB8z0OlByKnZ0 HDfqN9HcTORdlbnhLi88 pK5mFgWoVnE3MEmi A6XdjfP8PBMrfVOfOJoz ADF9Y24bt8T2ENOcUHAa XCR1oWP4uO9xeAaiodge bGVmdDsgdmVydGlj NOngRTvtM248PXTvsPsd PkNvZGluZyBEYXRlOiAg MDkvMjQvMjAyNDwvdGQ+ ZJJoSZQ3aFstADPj pACnRJrcMj2hwOhmrJmp BN8tBTEvqysiWDItfR8p DBBpeSNipHfeXS2sWYSn ayvyu234GcKwDPF5 RXXjrCMoV1EypU2nWvMl RBSvBMYcE4RkxMThBCwf B849ADguIpB1CZIidgOj B3HcXQTooJwcGgO1 e5Y8Je8Rd8QqiislX7Iz yZYhExTuPrnuTYb9Q6Qg PjwvdHI+HI92HRYkWP56 BTp2LHP0tIpjRFjc CEBlE4EazD4uRiQvJTEc ZGRkOyc+PHRhYmxlIHdp ZHRoPScxMDAlJyBzdHls XJ6gZa0vBTZiKQWp pGtwjZMgRdVxt2fgCQMx FCoeTF2yxCokH0FmhGX8 DJTik2r1Yc93F92lU4Is dXA+MFGacXM9hEM9 hK8vRpRcRiJ9SGsqE551 JyChyJGgJvnba2uac9vm tBv4OdR0PXDtvlTkyJmx QYY6n6QaFl65E29w IHdpZHRoPSIxNSUiIHZh dXaigh7lcT1qQa6+PGNv eQW0iIX5hK1bDnAiGwC9 YJbfN294MxQcrYCb Owfpb3cio8scpTf3SyXy OPVkxyXdyVboMGN9w0Rc Ey78K6YxcYeaw2RdXsx7 ac66vBBlb7I0dUE3 V7LyNLPqaoaliPTcgJex BN7eAFSgcmubWYYjvI9t EUNeU6l0RfGnXaD4ZCpj N1QcuvJ9JCFkdWNh ZHPphHLWdH7qcszlx9he nzmiAyBfHYWcLAo4EIl0 GXZogBtvYvNcEJX6XvE7 APT4lFIgrY2wgNqq muqcdS1jTvp+HDO4nXEd aFOAGB3qQftqaDT+PHRk YVP1yBjsNKzbIACtgZ4t ABNeO8n4CwQqZaF3 VYhwR7BlrxO9WJYdqQNr ZNTgvMRBzM8fkyuxm5xh lklzCkAqYFPuCDn6SYi8 LWFsaWduOiBsZWZ0 UzT1JOW4wZEgrZ7sxDvz uveoxW0dIax+QmlydGgg UTV5UIp0B4YhAkm0XODh mGsjIJ0fgQUhNPcw Gd9qrIhfpXjhVI4tQRPp pcwwp290DmNpn9ijYQFg mDGwRSbkOQK9Z05dt4C3 PWMmDPNvGHP6eSQ8 cI4xbCjmfejuuAUouMkc zfTsuDbpYRxtSBcyL597 JIIonPtdGfYmZAw9Y4Qx Xqd3RLTyrPmtHF4d xZThPSacKy6ywVfgrDxb AT8aLKNgsztem785GvJc b3dfCQKmoGTiVUxqJEJ9 O17ri8N3ZYOpRNBt CVN4nJQ8uW3cuZnudulw bGVmdDsgdmVydGljYWwt REtgQ362PYIfgOkuFbKo xXd7I3EiIre2DYOq vLllWM2csTVtHAwaCm3s lFdfoLykHC0mEGHgavig o238DtOdp3xoWNAoyEGk BEycOUF3B94zn7G5 RKKbTKXwFZY9pRF4rI9x bGlnbjogbGVmdDsgdmVy wQnwRKprSYhvH726OQDk cDsnPlBhdGllbnQg GTyrRKx7L6HlRzodfUU+ QG23NXHdVQ39rJXivTXb n7vyzUf0JgAyYLOnXPC1 nDtmELwfe9YkCLZv M62uiVHso1R6AMJimIuh lHZnPgWqaSB8dY5rUJjq pojxl7zitnifPnouh4vf me52eR85L14yEMdc ZHRoPSIzMCUiIHZhbGln it3xxA2jUj1+PGNvbCB3 iBZ5qW5oDBShMxO8MWsa R318PtGvmWNkKsvf v8ybl4mnbZr8MvB0PVOh hdTiaMxtNNM1i0ZuAl87 L38xZYpqFCNdIGWwZTCu KAGegArowj3jqJ7p Ii8+QUPshCS1sHE1nC7a KeWsNxF5RNbnH914BzZd sBLyDltbK85dQ4LlsEY+ PYPlIve8YTCfuMci UC0dsDMrHGyqIz0oAUW4 EqMwVdNiWXpkZ2DuLMOk gwnuqgjlrMG4VZPyQVFk oQ57Ha7yhOlcVVSp cGPJcQ2sdezqg6dgycac OxHjEPLfOBf8GEe1MDRz mBpkDsIhTAP7BiC9VFW4 cPWavC1hoUtspxdm aX9rS0BdXKHgsxnbUl46 hB1gDfFxLzQ9JUblIag+ YtCMMQCjIVURRa6NCIES RTwvdGQ+PHRkIHN0 gOqqRHnoKCTcuJ3mNNDo R8g5OwRySeW2IWhlS2Bv XZTunrkiCx92pD2rEjUt QmQ3CYaxR9QhmnJ8 OJRunMYaSKozBVU2H96y s2E4WFOdFVKuMTC4lTJ6 tA7bsKancqxkpMOyvNjr dmVydGljYWwtYWxp J485CWKkrQbtLoNbXvGx BfX8CvM5P2FcKqw6YFSo zLeoHV1cgCKlOXkfVs4w uCrudWcuDA9qWYSm odnbEBKglE0bNCFtbCLl yLmyGD2iODPabjkpw933 CvBdFCG6SMJaoRUcI1Gx hT3dLrWeSWTbNBIl G1KxsOPpCTtlP082SUlx IzH5QGAbitTaY9UnHVSs mTlrGaX8r0G0Lv95HVUQ ZWFyczwvdGQ+PHRk WHB5eJhmXLrrOAYndJ8n ZAQlN0r6HrJkOnY8CFkm B4YwCPHlqkarLg49cD1t EgYmJqQ1INnuZ0Oa xrP8XQSeqXZwQPhbLMT0 H44ke7X4HKZqFTQhEHD6 sYA6bG5nuEhkmdarcLXo dDsgdmVydGljYWwt EOaaN828QRWhgZvtBmWD TUFMRTwvdGQ+PHRkIHN0 kKckZVjqCBRihP1zUOXo Z5b0ZeDwSbQ7RSuk D3LdBXWndbbeUz00bA4u EhUgScW5TAtnW3PkyiP0 KDKwlTBuREfySEY9Q75z u5U3LAHxXDMtJLV7 dIP2jL6azMpksqnniSNy dDsgdmVydGljYWwtYWxp A352PFUnjZlsUuBiRHTp FH9mjWerqME+PC90 ej47A9OdVpstHrs3FSUj WEC9mXE7hT1zITYgPXft m3V9yRB4W2CqlaBtlj5z m5wiFKYrDMlpO66j jDGgs3S5GLDoyOF1VESb aPyqHnSqkS71Kll+PGNv eUbxj9NmRtmik0oau6pk qFi2TbWnXKNsnwTu fJrsRSL9e0IiZm16C92m IHdpZHRoPSIzMCUiIHZh pYwvua0ppL6hKd6+PGNv pRM5rMZ0lT8wSmHi TiB8WRjcB823PnSexSUe Fsmqc8rky1qeuMe1CqPr LYCnguBqhBdpNFG9t6Js Ug28I4UrnVaio8Wn Luj7up30xRTmz9I5hRM0 A9UaETBbqjjyyCIyqKgp PN0dPIUeflzuYOOmcQ1d VZMrS0z1JdKlFhV3 YDmhW2LxehO6BALtgCWr OFLxkKSSgQ4zhlafz2cr itwoSnWvEAOgMEw3AFp3 LWFsaWduOiBsZWZ0 VeF6ZXR4bUHmuO1roNsz gmvjoJ9sBik+TRx2j2zg jWIhHP1iiTS6AQ12LK06 mEWlw0Y7wHF4A5Ex GNCefxcirkzjbPC3JYJa QSBaqN00Li7rvHjdHk7k TFLxDEI1GAYfsYZkO7Ny tL2eWxFaBFDvJLLs D0GtpOQhQYrqQ780VGjd RnR0WKZczxAhY8GqAQVl aBndGoS7k7J1Bq8XXH63 KV96MD92aBMfr9L3 tDL3P1KtTADbvwlvrcbo dUI8VFAdZSKmhU38Ym9x vDjwUu6aDYLaJPV5UPVi dGJqD4UmsW2eZkSw UXVfZVKjQ0IfdTBqMXgl H499JYwmEqP1KKTzwbWe S1IbPQApzVpdGzU8s4O6 Hy0CVw70RW65QN37 yLFue2U2lRH4K3HbOVDe xyslzmxilTS3CZVoFMTw cF26Bx5xaFfsUx8hFFSj XWC9ULXxeQIeB1Pi xQ2qImKpWSKpOLRdG9Ub mAOdZAghF188MXieWdG0 LFGrnyLiM5AtCBYrbTfg PrI7e0M2Hi2TCBwt fkf5J1SdVimyiZY+PC90 XCWiYK28vWBheCYrv6gf sRx8GmWpRSHrWGS4nOza TFemm2EaJCXlY43d [facility] (more content not included)... [facility] CT Spine Cervical w/o Contra ston [...] MD 07/19/24 8:09 pm Technologist: Nayla YUSUF [facility] ED Clinical Summaryon 2023 ED Clinical Summary [facility] - Emergency Department [address] [place], [place] [id number] ED Clinical Summary PERSON INFORMATION Name: TOOTIE NICOLE Age: 48 Years Sex: FEMALE : 1975 MRN: Acct#: Visit Reason: Neck injury; NECK RT ARM PAIN Arrival: 07/19/2024 18:33:44 Discharge: 07/19/2024 20:53:00 LOS: 000 02:20 Check In: 07/19/2024 18:33:44 Checkout:07/19/2024 20:53:00 Address: [facility] [place] [address] PCP: Romeo Chaidez DO PROVIDER INFORMATION Provider Role Assigned Unassigned Angela Fisher CNP ED PA 07/19/2024 18:36:34 Alona Acosta PAN WASHER HAND Nurse 07/19/2024 18:48:05 Jared RN, Viridiana Brock [...] Strain Follow-Up: With: Address: When: Romeo Chaidez [address] [place] [address] [facility] ([facility] Within 3 to 5 days Comments: Take [...] iver verbalizes understanding of instructions given Comment: [facility] ED Note-Nursingon 07-19-2024 ED Note-Nursing PT. [...] A&O X4. PT. has a steady gait. [facility] ED Patient Summaryon 024 ED Patient Summary [facility] - Emergency Department [address] [place] [address] PATIENT DISCHARGE INSTRUCTIONS Patient Information Name: TOOTIE NICOLE Age: 48 Years Date of : 1975 Reason For Visit: Neck injury; NECK RT ARM PAIN Arrival Time: 07/19/2024 18:33:44 Primary Care Physician: Romeo Chaidez DO Attending Physician: Brenna Yoon MD Comment: Visit Diagnosis: Diagnoses This Visit Cervical muscle strain (S16.1XXA) Neck injury ([id number]) Neck muscle spasm (M62.838) The Pharmacy at [facility] is open Friday through Friday from 9A [...] alcohol and/or drug addiction problems; contact the [facility] 26/05 Crisis Hotline -Text [phone] hz [phone]. If you received any narcotics, sedation, or [...] legal documents With: Address: When: Romeo Chaidez [address] [place] [id number] Business (1) Within 3 to 5 days Comments: Take steroids as directed until complete. Use muscle relaxer and pain medication for muscle spasming and pain. Please contact orthopedic doctor that you have seen in the past for follow-up. Ice as often as possible over the next 24 to 36 hours. Medication Information: The exam and treatment you received today in the [facility] Emergency Department were for an urgent problem and are not intended as complete care. It is important for you to follow up with a doctor, nurse practitioner, or physician?s electrician assistant for ongoing care. If your symptoms [...] so we can reach you if necessary. [facility] Emergency Department has provided you with a complete list of medications post discharge. Please inform your medical videographer/provider of your visit and for further instruction on these medications. Any specific questions regarding your chronic medications and dosages should be discussed with your primary care physician(s) and/or pharmacist. New Medications [facility]/pharmacy #[id number], [address] [place], [place] [id number], [phone] acetaminophen-hydroc odone (acetaminophen-hydro codone 325 mg-5 mg [...] every 6 ho (more content not included)... [facility] Coding Summaryon 06-18-2024 Coding Summary HTMLBase 64 UlerjgqxMIn6gUo+PGhl YWQ+UK0HEEJgF72slGCo oG7kC7YHVAeHXmbqHZNN ZQvJYpKerdXgVA7yaJNq ZXJu IC8+RP4dRGEtLwmauEMi b6Y4uWX0E44xqd7eRLaa vNF8RPKyVeYlfykhk0gg sCm8ULzdRhfrUzTr AKFonP18ICS5dX12Qk30 sBBocDVni5ozsQf1KwXv NKQuZAC1wSjkDKqsa1Jt XIClC54paJNwg2L2 IGNvbGxhcHNlOyBlbXB0 uP0nRRrzkcaqs4lurqmd Mtn5dk99oYLcx6F4hVO1 J8AywmD7WRWtiTCh UpfzwXCXoS8kqfpqr0ut ajpyUzQmWKUwFYx6VBw1 TPYkhAyaIuYnQG24LOF4 KIJwtnStG0FbCCBc nGxnYfR2g1K8It9NF6FJ MshnI2TFJTSDEZppiKY+ JD34qs30B9GuLjmpQwh8 ISRwTFO5wKF6jD6j BNAzBFdcv6H2pZE2E4Zh rdGcay2uy6bfJFObSCpv J02tkNGhq2G0DNQkjJN7 AOUejMkyHxScrD73 Oyc+TTSprYdxu2MvFjze x3top9hrbSv4PqskHJDk hyHnpLrvHOT6r9UeYx7m CYChyFC7fQA2rR7n JwSnNiB0PHezE768FaUz yEBfLzakB88vD3CewOJ+ PDZhMze5IMPhjJxgLX8t K8WsKZQfmlsujFOr oInwEA2zMSXrefdxCKZy xE9uDRHcZ2q5SvRpMmO3 RTdsJ6BkLQTevdqjPm03 nZ0hScArGxV2FShk J7CjxlM1ENNjpBXsZLyf BCU2P37wy0A6DPAzQCQi FQR0oQM7iQ8dqObmebdp bGVmdDsgdmVydGlj DHnzHHdqD545CRJckPkb PkNvZGluZyBEYXRlOiAg MDgvMTYvMjAyNDwvdGQ+ MBBpYET0uCfrNPEz rRTdKFxiFk0opSxrgZme RZ1mMIRekqavCALcuA6q MRDqrUSldClwFJ6jFVHx yvutt373YdXfVYL0 KCMgnXYlG1IveC2tYlMa IIJvDOTwT6QaoEPqYWyx O919PDkzYtQ8ROThusYf D1VwASWriVwoSrK8 o0D2Pm9Sh7EjrgkkW0Gw rZNlQwCwLzneSYz7R8Lp PjwvdHI+RG38MYXbQG09 STl7LKX8ySvzPGsx ZZBlW6KmgO0sAlUyKKDg ZGRkOyc+PHRhYmxlIHdp ZHRoPScxMDAlJyBzdHls PG8hFf2jGOCpIMCm qRygiDPuQrDbr9dnNOFt WPofKM3wzSgqM6KemWU2 MUWfo6t5Rx36M81mH2Oa dXA+KRPipPW8dTN4 vQ6pOeHjUwY8HPtbV014 OxItjRTwYldtp1usy9bf qKp8ZvV1HMMojpCqjRqh XKC1e2KuRg76D66v IHdpZHRoPSIxNSUiIHZh yEgnhc4tyD9nUa2+PGNv mWD0oWR0xS7gNoGtPyE7 NNraI248LrJbjGZg Pevrl7twt3pwaGx9VfPg TXSvjsEsoDtwNNZ0d3Vy Ma93X3EfyNztd3JeSts4 vn62yKVbv2H5oMO3 U9FvOBOdiizpzGSryMtq JW5kXPPkyoibSLChqE9m MBUcV8a4TnWlThS6EVwc E9PqxcP2TTRvzWGt THNmoUFMrL2igfexo8pl hrgjOhGsJJDnMHe0THf6 NOVetNlkQvVjCWW3EdI6 HQU9jBQzwJ9twVew cvashO4tGza+RQH8mNMm eIFWUU6tUixzoUG+PHRk YQU0hMrjVJxjXXWdrD2s QNMbH1w2PlUvHdD3 GOzkE6OyxoM2KUPeiIRb AFRgyUFGhH8yhvhqs8ux aicdDrDtOGOtJVu6ZCt4 LWFsaWduOiBsZWZ0 DnR4TCC7yHDtfI6wsLkr zczlsP1pNtj+QmlydGgg WQO7RMr3B3KtFwy9WFPx iBawQF0fhGVhNAuq Ah2wnQtfwLqcKS3mJIQc xxgqo960GaVld0xbBNUj aLHeHItxPZR1K36gi5F0 DQIhGPFqKSO6jUS9 oI7myNjiymbqyVReaEuq szPooLjaKUlcSOplT325 VGNhaMmwHiQoWEp7U6Tr Bmy7DNJipMzkUC1a pKRxPVplUs0pwXqijNfj PF6aJHKabsgyq939KaPf j7rgHCJvxBDwWTxpPUH0 Z10tj0Y1SMOoVYKc CAS9wNL4oX7gfUbeujla bGVmdDsgdmVydGljYWwt TUwgF870ZPPrzTjcTwCl aOr9R9HrRqd6FRWa iHydTN4vbTXwXUqoOu8t rIadiHvbKW0zHHUjjibi u828RoCgo0teYXYteYLa VIuvAIT6Z76mp4Z4 CKJuGCBmGUW5qXT8zQ7d bGlnbjogbGVmdDsgdmVy nSjmRTexWFvkB087MCPj cDsnPlBhdGllbnQg LPlqBIk7K7ZjRutabSJ+ MX77PTMbPO03oAZiuTYr p5ycsCj7ChJnCWFlIVJ9 xLbdBJwos0GfWILl O76hpWZbm4L0PHOupDua kKIcAbCjpWF7cC6hPVzc afihb9lerxqhEtzkv0nq od88aU74E58pZVjy ZHRoPSIzMCUiIHZhbGln uy9svX0uGo6+PGNvbCB3 sVG5eK0mXSMxCzY5QLcs O230IvSjpPIkXzpk w2cow4kqaSm2AfF3URVo xxXogLgtRHH9c0GtTa45 N71hEUahGOKnTOHgCFDp SCAsxMqwhl3vtR8t Ii8+DLOgtZT3oOT1hM7d JsBdWeA5GGbzW005GuCc zPOrCxboS40iK5CbzLN+ CYUoLzc7SAMvmXsj RV5xgTZdYQvhFy9eZPJ4 TqTjBoYcECjlM9CiAQZb iudowwumsAL4KOJzWPQt cI31Ie1lpGjxORJv sGPUaG6idphbz9ufgbvw EaKqJHKsGMk5GEl3LWEy mOovFqGrVBP0RwV5TVC8 oQLanE5vqNugkdfp kA1qC9HuTNVpygpoYs31 aP6rBmLpOhZ2QLwxQbp+ JjAXROOvTSSIVp0UOXFS RTwvdGQ+PHRkIHN0 gGxdOOuhPAZryF1lWNQv M1e2DjJpDsI6ZCbxL6Kc SUIvozubQl06eQ2iEjBb SdI6UXtyY1CbupZ2 LCJhsYYyEFzvXDQ4I49o d7L5ZVQaIAXuOEU3oKC1 wX5pmCozvoztlRYupRry dmVydGljYWwtYWxp E219OSHulTvzZpHwRcHj JjU1ZpM7M9GfAxz2IAMo iOiwRN7xkSErXOfuBs2c lTqclKfjLL4oUYHi zhajZVPlgZ3vFUYqjUCy fMhwPS7gUYTucyekg749 JuVaRJR3BLRkqMRpH7Ps tU3iBmQaGSToEMEe X9BmjUUhFKbtY868HMaq GyT4SOUhnuXsN6DqJUGy bSoxIqB2x5C2Xo51EXXU ZWFyczwvdGQ+PHRk BDO5wBqoRAxgTSOenD3v NBDtT6o2GyAtNlM8ADck R1BhFYPepaaaVj81qN7s ZnLfGxP2MTceB4Am sjO8RPRkgEFtXPvgXIB8 S75su2Y5TJXyXMJsDCF7 gYG8qT2ufOlfyxmayYCt dDsgdmVydGljYWwt TTufA505VDZdpDgyRwSZ TUFMRTwvdGQ+PHRkIHN0 fIzfNKvxMHIxeU7jJOJj O6e8GlMrAiU8RArh Y1JwNJHpumieLs60cF7k PwEyYbW0ELmaJ3RpjpO5 WXXzxQCtVMivZYY7R00c n4Z2TOGeMMMsDJG0 oFT0wM1tbYdvdevulGAx dDsgdmVydGljYWwtYWxp A264ISVubNeaDxXbQGMw BA1bgPxbuSC+PC90 vb38L8McYyipDrb5NOWo BTY8nYJ9sB1tYFOxLJno o2A0vEA8J5SarkMbpb7b k0imAPXvEVqmO80k nWFfu2P2MHNssTO1YSIp cLteSlGpsG49Ofa+PGNv vGino5CwWftuv8gok9jv hPl6BvHoKQQftpEy dQtoJJX3c5GjCd39Y04n IHdpZHRoPSIzMCUiIHZh sYznks6mfY2iUp8+PGNv mGW8wYS8uO4zHkKv BtX7MTrhA720EaTaqTFp Ekvti4cva1vitQm4XyHb YWQnsiSwxWjuCNM7c8Zi Gq09M9PeoXbsy5Rh Ile2fq64uOKhd5D0wQI2 G3UgRQVwzbvmdIDymUes FU8wQLVbuylvEXHhhD6c IXVdH1z1MiBtAbX7 LGvoV4MjwfV9TULhsAJo TTZocENTnZ5wsftjy7bh hgiyQjOyURRvHCr5XYt6 LWFsaWduOiBsZWZ0 GpT5QKO9uJWnjN4xxNjb jplhtA5mZoa+RXg2c2mq gEDlRD5ddCX8HR39QO81 vHOvg8O2kRJ4O7Mr KNMjguxqcygbyTI7OORl ZRPefE94Lp1qtLmbYf7t WZLkTRX7JPWfdHLkV6Mj pW3rDeTrMUVySJFu A0UquBKmWSugK659YYhh FsB3NWMrqfEaP8UhIOWl sRqnFbD0m8R9Cq2EOG10 PI83SB94rHEbf1I9 rED3K2QcZQRgbkjkqbgo fYW4URAhBGZsnP24Vj0o pIkwSx2hOPEdGGK4GWYo dIEvS9WdbK2aHjKc QNSqIKJoC7IoyDPcGEca G193FXxhDeJ4ZBVskkVe S1RjLXXdtChkSiN5n9B5 Gh0GQy25AL55BJ49 yGWrh8B5cPV0O4KySZPl mjbddnqtgPQ0PSGsWONp oU32Bu0brQwbJm2vWEYe TCX2CEOwrNEwI4Qw qZ0sSdNrOGXrJULtV1Lq dAGiVGjtL713IDffDnO6 RMXsktOvA3LcWPUvzIxx XcR6d3F9Cg4SXHrs mcf6W9ItAliscSZ+PC90 UGMoPP81mCNcnMSjx5ml zXz9VxQvKJDhMVS2uHoz RCmzl4VgVQQyQ35m bGF (more content not included)... Normal [facility] ED Clinical Summaryon 2023 ED Clinical Summary [facility] - Emergency Department [address] [place] [address] ED Clinical Summary PERSON INFORMATION Name: TOOTIE NICOLE Age: 48 Years Sex: FEMALE : 1975 MRN: Acct#: Visit Reason: Headache - Recurrent; MIGRAINE Arrival: 06/07/2024 23:02:53 Discharge: 06/08/2024 00:47:00 LOS: 000 01:45 Check In: 06/07/2024 23:02:53 Checkout:06/08/2024 00:47:00 Address: [address] [place] [id number] PCP: Romeo Chaidez DO PROVIDER INFORMATION Provider Role Assigned Unassigned Yovani Negrete DO ED Provider 06/07/2024 23:05:02 Anel Cerda PAN WASHER HAND Nurse 06/07/2024 23:08:53 VITALS INFORMATION Vital Sign [...] Family/ Social History Medical history: Resolved Migraines ([id number]): Resolved.. Surgical history: Rhinoplasty ([id number]) on 07/10/2016 at 40 Years. DNS (deviated nasal septum) ([id number]) on 07/10/2016 at 40 Years. Nasal polypectomy ([id number]). Appendectomy ([id number]). Hysterectomy ([id number]). Colon ([id number]). Comments: 11/18/2023 21:34 Etc/GMT+5 - Shuff, Patricia RN resection. Family history: N (more content not included)... Normal [facility] ED Patient Summaryon 024 ED Patient Summary [facility] - Emergency Department [address] [id number] PATIENT DISCHARGE INSTRUCTIONS Patient Information Name: TOOTIE NICOLE Age: 48 Years Date of : 1975 Reason For Visit: Headache - Recurrent; MIGRAINE Arrival Time: 06/07/2024 23:02:53 Primary Care Physician: Romeo Chaidez DO Attending Physician: Yovani Negrete DO Comment: Visit Diagnosis: Diagnoses This Visit Elevated blood pressure reading (R03.0) Headache - Recurrent ([id number]) Migraine headache (G43.909) The Pharmacy at [facility] is open Friday through Friday from 9A [...] alcohol and/or drug addiction problems; contact the [facility] 26/05 Crisis Hotline -Text 3ZPJD nn [phone]. If you received any narcotics, sedation, or [...] legal documents With: Address: When: Romeo Chaidez [address] [place] [address] Business (1) Within 3 to 5 days Comments: Call for follow up appointment Return if symptoms worsen Also follow-up with your neurologist. Call to make an appointment as soon as possible. Medication Information: The exam and treatment you received today in the [facility] Emergency Department were for an urgent problem and are not intended as complete care. It is important for you to follow up with a doctor, nurse practitioner, or physician?s electrician assistant for ongoing care. If your symptoms [...] so we can reach you if necessary. [facility] Emergency Department has provided you with a complete list of medications post discharge. Please inform your medical videographer/provider of your visit and for further instruction on these medications. Any specific questions regarding your chronic medications and dosages should be discussed with your primary care physician(s) and/or pharmacist. New Medications [facility] [id number], [address] [place], [place] [id number], [phone] ketorolac (ketorolac 10 mg oral tablet) 1 [...] Reaction Symp (more content not included)... Normal [facility] ED Note - Physicianon 2023 ED Note [...] Family/ Social History Medical history: Resolved Migraines ([id number]): Resolved.. Surgical history: Rhinoplasty ([id number]) on 07/10/2016 at 40 Years. DNS (deviated nasal septum) ([id number]) on 07/10/2016 at 40 Years. Nasal polypectomy ([id number]). Appendectomy ([id number]). Hysterectomy ([id number]). Colon ([id number]). Comments: 11/18/2023 21:34 Etc/GMT+5 - Shuff, Patricia [...] Rate 7 (more content not included)... Normal [facility] Ambulatory Visit Summaryon 0 05-18-2024 Ambulatory Visit [...] PM EDT With: Romeo Chaidez DO Where: [facility] [place] Normal Smoker, pp_set_radiology_ subspecialty, Mik Echevarria\.br\ Medications\.br\ What How Much When Why Instructions\.br\ Changed hydrOXYzine (hydrOXYzine hydrochloride 25 mg Tab) 1 Tablets By Mouth At bedtime Dyshydrosis Pickup at [facility] [id number]\.br\ Changed ondansetron (Zofran 4 mg Tab) 1 [...] day (in the morning) ADHD Pickup at [facility] [id number]\.br\ Unchanged amphetamine-dextr oamphetamine (Adderall XR 20 mg Cap-ER) 1 Capsules By Mouth Once a day (in the morning) ADHD Pickup at [facility] [id number]\.br\ Unchanged aripiprazole (Abilify 2 mg Tab) 1 Tablets By Mouth\.br\ Unchanged dupilumab (Dupixent Pre-filled Pen 300 mg/ 2 mL subcutaneous solution) 300 Milligram\.br\ Unchanged fluoxetine (Prozac 20 mg Cap) 1 Capsules By Mouth Every day Anxiety Mild recurrent major depression Pickup at [facility] [id number]\.br\ Unchanged ketorolac (ketorolac 10 mg Tab)\.br\ Unchanged [...] if questions or concerns \.br\ Pharmacy Information\.br\ [facility] [id number]: [address], [place] [id number] [phone]\.br\ Allergies\.br\ Imitrex (Rash)\.br\ Tape (Chemical burn)\.br\ penicillin [...] instructions at home:\.br\ Medicines\.br\ ? \.br\ Take omme-llx-scrobvw and prescription medicines only as told by [...] services is a problem, search for a [facility] or [facility]. Public mental health [...] with Attention Deficit Hyperactivity Disorder: chris [facility] Family Medicine Office/Clini c Noteon 05-18-2024 Family [...] was negative Mammogram: overdue DEXA: age Pap: PROJECT SURVEYOR - Dr. Sarah DAVIS Smokers/ former smokers: Low dose lung CT: DUE List of Providers: Neurology - Dr. Lisa Martínez Test Technician - Dr. Sarah DAVIS Derm - Dr. [...] TSH: 0.96 mcIU/mL (10/01/23 16:55:00) Future Appointments [facility] Appt. Date: 08/11/2024 2:40 PM Scheduled Provider: Romeo Chaidez DO [address] [place], [place], [id number] Phone: -- Fax: -- [phone], [place], [address] Phone: -- Fax: [phone] Review of Systems PHQ Score Initial Depression [...] Chron (more content not included)... Normal [facility] Comment on above: Result Comment: Elec tronically Signed By: Romeo Chaidez DO\.br\Date and Time Signed: 05/18/24 18:48 EDT\.br\Electronically Co-Signed By: Otis Ambrose\Date and Time Co-Signed: 05/18/24 14:45 EDT Coding Summaryon 04-27-2024 Coding Summary HTMLBase 64 YkbekiwrCPv2rQt+PGhl YWQ+MY2HWXEuW08rqDLv hE7yP1ASKQrGPmtbONHZ JNtPPtYhwwLpOH2pfKYq ZXJu IC8+OP2xMOFhUkblpUVl y1V7jCV3C18ese6mLCrf pSB4HGTiAwJlywrry5wq eNm0UXqbQqrdHpNh BVQgpL43MQJ5cP33Iv58 yZAcaHByj5gehTx0LrIg IVGqVDB4bSpsADgje4Rg IWQsT45vgDWjl6X8 IGNvbGxhcHNlOyBlbXB0 zL5cPFsftldhf1dxvvpo Rjj3vg36nLZgs1E3eBH2 Z9LpdvL9VYOxbOLb XbnsgKAPvG8yzzekt1fm mqkaIqYgMKZcPTg8IMu9 MAAsbWddLaXbIT42IXO8 QXHmrwXaP2BsAGLr iQwnUxC8j7H6Ry1RR5YH OwciT2PQOHRXJJhqaIT+ YX23sa08V3XkGgadFuc5 SIMxRKN2jYF0mL4g EIZxNIcnr0H9hWQ0O9Xa qgVkve8ni4gvJIQuGKjp V40ezRHsl3G4BYRvuLY9 KEEblVjzHoTlwX00 Oyc+YGThdKtvh8IpZcld d3hqu1gueBn4OunxARTl xfYcxYafFEK8f7LpLo0d JATonQR2oPN4sB5a NcKrNvV3JTvmK624JoHy bHMjFrjbF40wW4CukPK+ WLBgLol3GUWmtUlxPY2u V9GxXVXvxsthxHBt bEpvHJ4lPEPwinvgJZHu wJ0gEZHuJ2v2VgAmZfW0 GBcvX1CpIWXdcgejBa59 oU9sUpQnZmA4PPkw P2LhxeF8PNAerTQnUXkn OJQ7F69ft7R7ZJAvTNNw VSB1gVT5jE2yzJuhewqu bGVmdDsgdmVydGlj OFtpSWrwO350ZNIydZld PkNvZGluZyBEYXRlOiAg MDYvMjUvMjAyNDwvdGQ+ QHTiKXN1lLdmLJCg mCAgYIspJu0trFzrfHvd DO2mPKMuwdghDXGgsY6s GWTnoGTkwZsuVM4tRINl yonmj584CvHpTRU1 HLImpSFgF5NrmA9jXqPq UZDyZJGtU0BupONuWNqb M408XZjeQvC8IESrrcXs G9XkMXPddYbeJsF1 o1D0Rm4Yw3OxsedtX0Ld gRLcFkVjBftnTIo5J8Rq PjwvdHI+IJ85NSJrVN70 HKh5CQZ6oVzqFShr TSCbU9IseF4qOuPkRPHl ZGRkOyc+PHRhYmxlIHdp ZHRoPScxMDAlJyBzdHls BL4jAk1qPXLbBLOm yUamaFZxNhDuo2xzFQEq CQzqKJ4clKtaK4RwuSG7 JEVhw7f1Ai83D43tC2Da dXA+WBSssRN3mXL0 mC9dHzIzPhC3VWudG287 JkYcxYGgOiuhg1jtz2fn zIb0WwE1PFFahuRrtRyj HYH5s3UeNs64Q62u IHdpZHRoPSIxNSUiIHZh dPxzea3dyD0oHd9+PGNv mCX0bTE9aQ1yKjIzWuQ0 KEfnR176RtZylYMa Lzqfk2hon7zruJp6EkWj SIJhiuHomXkfEYL5v1Hm Pc63Y4YqhArvu6EuPzk8 lw83xHSzb8S6cFN5 I9OkSQIbtnqwxKTpcOiq MO8xIXMtljtlKKTcyM7j QKSaL5h1EqHxZaC9SRhd H4CtvlR1GJVwkKXb LVHxeWKFqK6qoipvi3yr juxwEzDsQUFaHOz5HXo9 EEJtpJczEbZtWXT3SvW0 CGU4oMYbtA0rnRct amwrjR1sGsl+GLD2xUJi cIJZYW1nJqlxdGX+PHRk UGZ1jWneLLicKYTxjY5k DJRpT8l5RcVlTwO1 TGcvY3HeruC3WDWenOHl RGRngBTCoU0ckjwkq1nn nxbcEwKnZGLeCZr1TLz8 LWFsaWduOiBsZWZ0 UmO5BTA8xOIzaH0jiVag gelqpT9mYtd+QmlydGgg OQZ9DOr4P4RiMjg0WQPa vRamDC2dmTTaFLor Mt2ooBogdNiyTS0sWUFt xmfhv500DaSba2gaXRVy bVBhOAqvKXR9N19nm4Q3 WCQzTGVrFZL9kMM9 kU3vbYkysgdpcABicEri suGcdNhsHOwpEKxqR763 IMRgmMozIqQzXYw4N3Xr Bsf8JSAnjJjrYK8h jYCvTBfmOl7efBiwyVeu HX0lUEZarfmjn689MfCz s4brGCPkqNKrZOhrIQV2 S16wh9C2KQZbENAv EBU4xNT2hB6zsTvyawoq bGVmdDsgdmVydGljYWwt UOsqT582NWUfeVggAyWb zFh2A4MrMbb5UQQh hPixFK1zyCJjJWutLa7j dVxaxSdrFS5pZWTpkgyt o044SfMse9ltGVRinEVw BHcgQXL9E88fn9V9 ITGqWXPlGUU3bAL1kV1x bGlnbjogbGVmdDsgdmVy yRbmCEgzTBrmE042PBRx cDsnPlBhdGllbnQg WLsrTLc0K9OoTguxbOF+ TK50QIScLG09bWEltJGn j9izpQp5KgSyTVFeMBH2 aBzfOThqk0TtGLIj G52ymEQcg7B6NMNdiMoq pIHuArWicGB9nW8wNEzm ckhah7gyynitYumzp9wx vd25iD85O21jITvo ZHRoPSIzMCUiIHZhbGln bs9ywF5lOr4+PGNvbCB3 kEG1bG2bIXScLuX4YRmr H806XmTqpJLeIhny b6atf1mvjBa7LzD0NTFw vkGimNviEOR3z5HiVd31 F87aLZmbQPBjWDLrTPFx SWTqrPfzkc0vaZ2r Ii8+SYTacGW7eZX3iG2w SyOkWiA6NCplH963OrOm oDPcMkibB60rS9MmrMG+ QABePqv2CNYozAsf TO6hmDVjJVbiBb6dCUE5 YlSeTqMuKPtqX6CgVXKn xiskzloyrMD2PMAyAPYm zY91Gb1fqQwkSILf hFRPeK4mxnlod2brmezh DiRwDQLtWQn1NSy0EQIo fXwdPkPxMDR9OvL7RWY8 vHTqfX1qjStlsdjg mX0vT8AlJOHfqhnkSs32 oZ4iJjAtGsP5AKodKwn+ BoLNZLCqYBLXDd3CEVWD RTwvdGQ+PHRkIHN0 jSsgXUirMNIasI2eDMXo Y9j5PeWkPuX7RXywK9Lf WLHbwjtyOz67qK4gXqQl JqA7WZrqC0WytmV4 KGNfqAZuFPzlFGI9K46q g6G2OGTtTAQnYGJ8jCA3 bN6qcSookudvpGPilThd dmVydGljYWwtYWxp P885USEcnVqqFpDvZzPm FqE1CiH7C2UfQbv0RTUx fSxaAN6gxYWpECuxUn1i pMgaqLdkSE9bLPWm lrtrUFOqiG9gLNJpvXGv qNzjZC2mVBKarperq854 DvEuWHT3DRImzNDeT6Cf wB2yHkRrVKNgXIMo I8HsbMFfTGpnE631GZyv FaE2GNKqdkCyR1HgRZCg dZqlMaK5p3R1Vp64FITA ZWFyczwvdGQ+PHRk BAZ0qIulWOczAWGozI9s OGRcT8n1HtDmSiD3ZKwp E1DyZIHgwqbkGr36tX9l AcPrPvU6GCmvD4Xc voI7JAOttKTqQGrzHMG4 O73yt0N5FBRdJUYiSKS5 qJJ9xC8byZrgchplpBOi dDsgdmVydGljYWwt PCccW186RFHtxOhuXiXJ TUFMRTwvdGQ+PHRkIHN0 mXvkTOzhIMJicJ1bYOKa S4j0XhGkSiN7ZOqe E8BdWKOefhflFt89iD7l BqAdSnP7NIkhF1XiqhO8 QDYicOVuKZekJKJ4P97t i2M1OMLjBIRhDJU8 uEC5qP3udNbjjeanqDGl dDsgdmVydGljYWwtYWxp L831AEInvWzbXaZaPWFq JE6wzWixrSV+PC90 xy29G1QtZlvpUxk7IEZy YAG8oQG9lT0iAHDqFTjw a8N7jRY2H4FkqtXsvf3f y2uuFFVvDJpoR29l rYWkf0J8OHLuuYV2GJXp hOlnHqHzhN00Wiw+PGNv fYrvm5WxPhjuu5evs3pd zXe5RlDpHCApruTl cLczRJJ5o6BwLo97Q72a IHdpZHRoPSIzMCUiIHZh bZmnun1joJ2hLn8+PGNv gZI2xXY3tF7pVeAo XoQ1TQwpS996ZsHixLBv Tbcmk3hty4advIq0ViTa BXFhmpBkdNgtOMM2u1Jv Ua09G0KtsCrvs1Ih Khz8tx31eJLjy4U6mFR5 A4ZtTXUcurswmLLczSft UX2cWOXylmhpCAHddW1u QRNaV0k3VzDiGhS5 NIftY5RacnS3FPQztCZd IZEpsFIBtX1dzhham1gb rmcoJdHlSEVlRGd1FAz1 LWFsaWduOiBsZWZ0 OhS5QVB1uQUmuO8srRab wptbsQ0hOxb+MYr7d3hr hLWpAW9vhYY1AD36XH45 lRUia0X2xSV1N8Qy TQZxcftfmkbxkHX2CRUy TGQukX90Ma6mrXafBp9e SVOpEIM9UVBobUKnN1Wt cY9lAaBgMAGyATIt V6BzyAVqEYvnZ986XDyd XlO6EQWigzJiS2IaFFDh rVtuNbO7k1Y5Dw0ELG10 CC84TG75uOGuh3C5 gHI3X8VtNARbyamolfen ySW8IQEpFJBwoV63Sm1c jCleUh9oFEDvGPW7EBVn nOSyF4TzgO5wYfZn LZHhAPWyR3OgoLSnHGgi U583VPzuZhY9MNCubgQh P3ThUWSrnNkaXmM8a7F2 Rw7WQk48UK99QU46 kVTbp3L5oBW3T2ZpTNFe twthbfluqSD1VCAuHZMi iG56Tf4tyGfjBk9iFJAh ZYH5JZMduZNhP8Nh tZ0jKsBqNSQdLZJiF2El fYObRSqcA231PWecJwQ7 SIPblvAnI9RrUFKlfLkx YmR3p4D6Qk1QTCmq tqm0J0GuRokmoSQ+PC90 SGAtNU72jFGpmZIsp8xi iBa9WzCbAKVxHIA1bPtm XEwgy3BbQMMsQ40j bGF (more content not included)... Normal [facility] ED Clinical Summaryon 2023 ED Clinical Summary [facility] - Emergency Department [address] [place], [place] [id number] ED Clinical Summary PERSON INFORMATION Name: TOOTIE NICOLE Age: 48 Years Sex: FEMALE : 1975 MRN: Acct#: Visit Reason: Headache - Recurrent; Headache; HEADACHE Arrival: 04/13/2024 22:32:22 Discharge: 04/14/2024 00:21:00 LOS: 000 01:49 Check In: 04/13/2024 22:32:22 Checkout:04/14/2024 00:21:00 Address: [address] [place] [address] PCP: Romeo Chaidez DO PROVIDER INFORMATION Provider Role Assigned Unassigned Jess Waddell PAN WASHER HAND Nurse 04/13/2024 22:44:17 Tru Matt DO ED [...] Neuralgia Follow-Up: With: Address: When: Romeo Chaidez [address] [place] [address] Business (1) Within 3 to 5 days With: Address: When: Lisa Martínez [address] [place] [address] Business (1) Within 3 to 5 days Comments: home call Dr Martínez's office for a recheck apt one Percocet if needed tomorrow. You are welcomed to return as needed T Verna MATT< ER PHYSICIAN< HB [facility] DIAGNOSIS: Recurrent occipital headache Patient Understands: Yes - Patient/family/careg iver verbalizes understanding of instructions given Comment: Normal [facility] ED Patient Summaryon 024 ED Patient Summary [facility] - Emergency Department [address] [place], [place] [id number] PATIENT DISCHARGE INSTRUCTIONS Patient Information Name: TOOTIE NICOLE Age: 48 Years Date of : 1975 Reason For Visit: Headache - Recurrent; Headache; HEADACHE Arrival Time: 04/13/2024 22:32:22 Primary Care Physician: Romeo Chaidez DO Attending Physician: Tru Matt DO Comment: Visit Diagnosis: Diagnoses This Visit Headache ([id number]) Headache - Recurrent ([id number]) Recurrent occipital headache (R51.9) The Pharmacy at [facility] is open Friday through Friday from 9A [...] alcohol and/or drug addiction problems; contact the [facility] 26/05 Crisis Hotline -Text 4HOPE to [phone]. If you received any narcotics, sedation, or [...] legal documents With: Address: When: Romeo Chaidez [address] [place] [address] Business (1) Within 3 to 5 days With: Address: When: Lisa Martínez [address] [place] [id number] Business (1) Within 3 to 5 days Comments: home call Dr Martínez's office for a recheck apt one Percocet if needed tomorrow. You are welcomed to return as needed T H SHAKA< ER PHYSICIAN< HB [facility] Medication Information: The exam and treatment you received today in the [facility] Emergency Department were for an urgent problem and are not intended as complete care. It is important for you to follow up with a doctor, nurse practitioner, or physician?s electrician assistant for ongoing care. If your symptoms [...] so we can reach you if necessary. [facility] Emergency Department has provided you with a complete list of medications post discharge. Please inform your medical videographer/provider of your visit and for further instruction [...] Vital S (more content not included)... Normal [facility] ED Note - Physicianon 2023 ED Note [...] been 3 days, she has been taking uysu-isf-gwqxkwc medications at home for this, but did [...] Family/ Social History Medical history: Resolved Migraines ([id number]): Resolved.. Surgical history: Rhinoplasty ([id number]) on 07/10/2016 at 40 Years. DNS (deviated nasal septum) ([id number]) on 07/10/2016 at 40 Years. Nasal polypectomy ([id number]). Appendectomy ([id number]). Hysterectomy ([id number]). Colon ([id number]). Comments: 11/18/2023 21:34 Etc/GMT+5 - Shuff, Patricia [...] Electronic Cigarette/Vaping 09/03 (more content not included)... [facility] Ambulatory Visit Summaryon 0 02-24-2024 Ambulatory [...] AM EDT With: Romeo Chaidez DO Where: [facility] Medicine Patrick Normal [facility] Medicine Office/Clini c Noteon 02-24-2024 Family [...] of Providers: Neurology - Dr. Lisa Martínez Test Technician - Dr. Sarah DAVIS Derm - Dr. Blanco Ortho - Dr. Bautista HPI staff / Chief complaint confirmed with patient Screening: Colonoscopy: Cologuard completed 2023; states was negative Mammogram: overdue DEXA: age Pap: PROJECT SURVEYOR - Dr. Sarah DAVIS Smokers / Former [...] Pablo Vital to learn more about ADHD https://www.[employer].com/slideshows/a iew-dctcyxxz-saswg-o ff-our-feet/ F/u every three months [2] Review [...] me Seeing orthopedic surgeon Dr. Langford in [place] MRIs have been ordered by this provider [...] face with (more content not included)... Normal [facility] Comment on above: Result Comment: Elec [...] primary care provider or a mental health caregiver services home. Your health care provider may use a [...] management. You may work with a assistant softball coach who is specially trained to help people with ADHD manage and organize activities and function more effectively. Follow these instructions at home: Medicines ? Take xsxd-lrj-zkxwfbx and prescription medicines only as told by [...] Follow th (more content not included)... Normal [facility] Coding Summaryon 02-04-2024 Coding Summary HTMLBase 64 ZqvqrurxDLw0qQd+PGhl YWQ+KK9PIBAaW36ncEIl mM3oS3TQLObMSsxsPFHR GStEBkYzbpGnGB0myYWc ZXJu IC8+XS1uLTCmVjpalUGi m5C6qAB2M82xom7pVTys fJO6BBFzAsKfqgyvw6ap aDk3QPswTibmFuPv STEzsX28EUH7rC09Uo44 nXOfbGKze2udtHx1ObAy MXVcCCP4yIxwEAqqf3Hc HVIzI54gmXDti6L1 IGNvbGxhcHNlOyBlbXB0 xI9sKAjzgaftn5poumzl Lpk4vy72fVJxv8C3mZX5 B2FkejC5IAFzaABc MtjlvNWEjD9cfkebe4me dcztNrKwJEVhQBv7JBu6 NGStfDbaMlJfOU21EIW6 QWFnwmGuS8YsXSMd lVtvEpX2u5K2Vk4MD4MF DfduF9QAMGGACQefcAP+ LL90ik07F2GzJzldRmo8 IGHlXBK1wRO8lN0g GPPmINhid1O9oHT1I8Up aiYmak0qg3qnAWTvTHxu T09ceLEka8O0CRBshLG6 RPDrjKciHpTwzO03 Oyc+RWUfjAonh0BsRikj p4gjm8zmrEo4YnmnUYIs dpQxyDjsQSB5n9KoDl4i SAZnnQS2hRD3mO6u RfObFoJ6SLaxB863HtGb rLQkJmygJ29xJ8HsbDS+ GZGfMin8NJCllOdqIV0u F1KtTZWyeibglGYx kAdfWR9wZBJemaieFLKv lD9yXTRxG4k7NsSjKhE3 UIncG6BiMLUmbkxyVv60 jB5wIjZfWiG1LReq K1CzycS8GEWpwECeVFjf TAN9V50qb9B9ZBYhQDFi UAL4zUK7pY6xwZixduhh bGVmdDsgdmVydGlj CYiiGMxhQ116LBNnqQzj PkNvZGluZyBEYXRlOiAg MDQvMDMvMjAyNDwvdGQ+ IVNbVEM6dPuyDVBc wIYuUPapTl8sfYcxmOmu WG7tDOSpiczjSMVhjN0y VZDygJKzdSkwSL5zDVZj ovvdq993QmGnMFK4 LZWxfHTvG9NygP9fJaWs UPTqOBOgF1KbvWItDWuj I167ZEroMjJ7ISLusrAx W0ZvJGOivLdxZmF2 d9Y5Qp0Pz8SvlsdeO7Yt zZZgPhPzUxqqSCo0I1Gc PjwvdHI+SN41NBBqKF71 HPz4GJF2mNfaIQuw XUUnR1ArmT5gAyKmPEUu ZGRkOyc+PHRhYmxlIHdp ZHRoPScxMDAlJyBzdHls PN5qFe5wMYFsZMSf qUqcjXEjKcFtq3eyYUZc AMocHG0yjDfdR1BmdRW4 HJPcb6h0Jt75W22wN7Zo dXA+IBVhwYU7tUK6 wX0dTzMtDdS0AUzdZ085 DzTsuHFrPvesi1pod3gj nOe6PuB8ZZUdhyLihJyu UTC6q8LyYv00X08e IHdpZHRoPSIxNSUiIHZh qFahew7mlA1xJj4+PGNv dND8hEX9pY8aAfNuHgK3 HGviC634ReAwhVEm Xibcu9hnd5uapKl8UtIx GPKdxnWrkSwmCIH5j9Wt Ko70E8IzfJemi9KjPgx2 vv02yOSbz4Z9zMC5 F0YdFHWfavtyySNgkLsw AN3bNKCwrafcSFLipW1a JSNpF2h2RcJsOuH4EFlp L0KhqcN8BDHqwETp BRNceZVPaM4yhojcw6se vbmuCmNzRQIhQXl9JVl0 UXWjoCouNiBkZAR9ZwK6 INQ8qBZgwF0ocQej qjnraU6vIqh+DZU8pHEf uNIPTK5mWyfhuKC+PHRk SUK5rDugCBccLXHqyB1n SAMhJ2y4HvTkHnV3 SDqxH9JrceA9ZQXqdGMf BBXltBGWnB3ysprza2mo nhzyTuMnCAXbADm1WHc6 LWFsaWduOiBsZWZ0 ZpH7CDM3wDAbuR0hbApf rbreiP7gZvh+QmlydGgg FYK3MBx2O8VeIbx4XELf pRtnLB6mcRPtLPxu Sn5leNjudOadDS6tCKRy bceby044FeVmi4blRHUf lZXcQHnxZUS6C97ay3C2 CLCfLRPkXNR4rEI3 uM6jeRqtweczkPMggCun ujZoiIpySFiiUBmtI246 AXHgiLajSeEyPYw9V9Qf Lub9HVVybXxzSC0t sMRaRSalZh2tmGcypKng CI2aKZQfcukte068ImMj t9feFVQmqFMxJCgbYFI0 Y09wx1K7GYMmDEKq ZRN9pDQ7hZ0ujAhkvgxv bGVmdDsgdmVydGljYWwt TSpkP645JILnaFwpExLi eBb4S3VfRzo1VBPa oYcoAN2yzMSnHHbdQu5m vYutyFipRU1sECOtkdjf v075ReEyx6caPOIbcNLf SEknYIN8D27ql4X9 ADZqRKVbVHL0gMB3zN2l bGlnbjogbGVmdDsgdmVy aTzhSRtyPEhlJ605POQq cDsnPlBhdGllbnQg OBvuHRy9V5AoKuwkjVH+ XP37KAHxWI81rGUjxQGj j3askDa0GnYxKRGfHSA8 wPbcBOkti4XrQGEc S75czXQxg7C4TLYtgEyk pZPjZzOyxSW1gF5tIZok wkxwb3kuuwhjZpwym3la zv93pJ00W47cXLly ZHRoPSIzMCUiIHZhbGln rd3sxF1mPk3+PGNvbCB3 wVX4uI7bRBDlOxP0EDdw V922HiVxqTNxUwrf m1hxl0rxdFb2YqO5OMNt toPzyLzfVJQ1o2BwLn78 Z73hSJjwBLQeXTUuBADp QFOutRdnyq0crK5x Ii8+TEZpiTM0kWA7kF1f KaDtLgJ0TXcaE813LxQl pVMvLrmdA68cE4LcoVS+ EFJiZpl3RENpzBrb KA9kzJYlKTltNl2wYZO2 NzBwWbUxXJmzY1YhGRKj nfblydwwnUO2JEBfMLQg kJ61Ob5aoVscUZBz dASIoA3ubdptr3emomfz NaPrWGLpLQx1FMn9HTWw lBepHnDmMOY0AdT2QLA5 eLDjrK8dvMxghabr sD3fN2BaESKedgzfRi22 eW8sDcDeJkR0ECzrVar+ XiXXANKwQHXSIv5MCZRF RTwvdGQ+PHRkIHN0 wOupDOlfTNVdnO8zOYEs W7j1PiErFqD2CUklP2No TSBtepzyKa98tB7dSuUn BvY1VMawL8QmaaR8 OOWldJHhHHflFHE9W42i w3W9SYGdYBKzQUZ3yWB2 aJ6xpTlxmnrriCTdbGkh dmVydGljYWwtYWxp N057BFTmhXwzGqSvZmAr JuQ8QgG9H8KwJoa4MAEv xRhvPU1voQXiURnyZa6b sApujOpdPZ6wEUPf fpqcFTRvdF6fOULtxIQk pXcyPS5sKZTwdeaxj952 YqRnXWW8BPNhkYIzJ0Jw lQ8vFrBxZEZbWSYc N9NdvGDpAYzqK757UBvl LxX4WLOynxQpN4VfCUHb xFkiOrB6k1C4Kw19NOQU ZWFyczwvdGQ+PHRk MHC3mNjeGEexSJLucC2f RZXeU8m5TiDbLdT1TWgd B3LnCDIxyycqZs49sM5f UkXzDoB4RGpgV3Nl sxZ0EWZtjILlHHqfDPT9 C74to2B7XLJmSXSiFOV4 qLA9hX1srUnpadxmyEBl dDsgdmVydGljYWwt HQdmR358SMBtyHptYvIL TUFMRTwvdGQ+PHRkIHN0 yIqbSQovTYHwzT1sLIBf X8o7YqSzGmW9YVxi H9TjFJMqciufMp82mI4z OtMxFxM7PUxtL2XvmwC3 ZXHkhJJzTAyeENW7B00u d1N1OQAmNQMxDYB6 uKD4jA4hbTsxwbrxpHOo dDsgdmVydGljYWwtYWxp G410UECxjAtjEcTfJDQq MS5htIvizXA+PC90 ns68K2WfCjbjFjj0VUJd ZJU1aYU2uE2yXVVnSOlp z7I4bIP2B5WglqJhbp6l f3vjPRCeKMumM82p iYVaz8C9CQFvtZM7QIKs sFvuTsWliD25Hia+PGNv uWhtd4YmNrvpy5uiq3gk bAf7UiFpKWDxucWw uIoyIJA0d5TyMb97B10n IHdpZHRoPSIzMCUiIHZh xCyism5htB6yZe1+PGNv tHA8qGH4rG3hFcAn MdR8DStsF314KfCefMFx Romqy4ygt8rlyJm3GyFw KROvdpKdkVhmTEU1o4Ux Ap38F3SflTlrh4Bp Flz5pd07rZJnk9H5sJE4 D1MzUBSgccaakILlhDxl XT4qYEReijqfTOSymO4q RKDpO9g2LxNgUqO2 HJdmX3HugnF4UAEjrEYm NWEjoOQRaD6xabnwt8sb yvvkDtUzITYkQFa1PXl1 LWFsaWduOiBsZWZ0 HuD8ZLG5kCStbR1kaPbb qkmcxP9zPky+LIr9g0ni vKYpZL4mdPE4KW14RX38 dEYcg0M4wQW4S4Qg PJSjykbvwhyuqJK0BBRr BXPwyK44Dz5qeXckPs3z BPBmBLR1VQGxqJUmM2Ws zP1kMqJeNGAnVYXd O3YvpYIaWUreZ661FGoe JwQ6EMOekyQuV3DnVBUm oRjeNnY7l7L3Oy8QJH39 GF98PR87rOCvs6W6 qSD7C3RdYDOtngdywbqc bUE6PNXvNZRjxG41Fl3k jGayGy0mSSQhMEA5SYDn pBJcK6OrkG6dQdJv HMGePFMrQ8HmdBJvUQvj R518OVwvTuP8RIQbowUh A3ScAVDypIegOuN5t1P5 Vp1SLm57BZ41FP99 dKDxe0Q3lBQ8S4IlLBSr addpdsdxtYV4VYIsEVDj dP55In2zaXlbUk4hLPPv XTQ2QDIowBHzF3Oo yI0hCrGeIYArBZKvG3Oy fDGvOAokF598HEfuGaW9 DVYhjaQhX8TdDZLlsRnz HjU6y3X4Yg3IWBpl mdx4N8QwOusffNJ+PC90 OCXeUC29sSNnpCVcf0it vQd3ZgJoYZRcCKC9gHme MJpqq6OiHUMiA33a bGF (more content not included)... [facility] CNOVon 02-03-2024 OV Office Visit (PLASMN) TOOTIE NICOLE ([id number]) 1975 F Date Time Provider Department 4/2/24 [...] APRN.Remigio Mason MD 02/03/2024 4:47 PM Signed [facility] STAFF PHYSICIAN NOTE OF PERSONAL INVOLVEMENT IN CARE I have reviewed the progress note obtained and documented by the physician electrician assistant/registered nurse/fellow, and I personally participated in [...] Status:Closed by REMIGIO TRUJILLO on 02/03/24 Normal [facility] Lab Reportson 02-03-2024 Lab Reports [id number] #1.00TIFF Normal [facility] Consultation Noteon 01-30-20 Consultation Note [id number] #1.00TIFF Normal [facility] ED Clinical Summaryon 2023 ED Clinical Summary [facility] Emergency Department [address] [place] [address] ED Clinical Summary PERSON INFORMATION Name: TOOTIE INCOLE Age: 48 Years Sex: FEMALE : 1975 MRN: Acct#: Visit Reason: Nausea; Headache; HEADACHE Arrival: 01/29/2024 19:18:03 Discharge: 01/29/2024 21:08:00 LOS: 000 01:50 Check In: 01/29/2024 19:18:03 Checkout:01/29/2024 21:08:00 Address: [address] [place] [address] PCP: Romeo Chaidez DO PROVIDER INFORMATION Provider [...] Home PATIENT EDUCATION INFORMATION Instructions: Hypertension, Adult, Meiz-kj-Abyv; Migraine Headache, Zaqy-ei-Tdhb Follow-Up: With: Address: When: [place] [address] [place] [address] Within 3 to 5 days DIAGNOSIS: 1:Migraine; 2:Elevated blood pressure reading Patient Understands: Yes - Patient/family/careg iver verbalizes understanding of instructions given Comment: [facility] ED Note-Nursingon 01-29-2024 ED Note-Nursing Patient's male visitor came to desk and advised the patient reports the medications given are not working. Dr. Varner notified. [facility] ED Patient Summaryon 024 ED Patient Summary [facility] - Emergency Department [address] [place] [address] PATIENT DISCHARGE INSTRUCTIONS Patient Information Name: TOOTIE NICOLE Age: 48 Years Date of : 1975 Reason For Visit: Nausea; Headache; HEADACHE Arrival Time: 01/29/2024 19:18:03 Primary Care Physician: Romeo Chaidez DO Attending Physician: Bin Bello MD Comment: Visit Diagnosis: Diagnoses This Visit Elevated blood pressure reading (R03.0) Headache (33120027) Migraine (G43.909) Nausea ([id number]) The Pharmacy at [facility] is open Friday through Friday from 9A [...] problems; contact the [facility] 26/05 Crisis Hotline -Text 1YWER af [phone]. If you received any narcotics, sedation, or [...] documents With: Address: When: [place] [address] [place] [address] Within 3 to 5 days Medication Information: The exam and treatment you received today in the [facility] Emergency Department were for an urgent problem and are not intended as complete care. It is important for you to follow up with a doctor, nurse practitioner, or physician?s electrician assistant for ongoing care. If your symptoms [...] so we can reach you if necessary. [facility] Emergency Department has provided you with a complete list of medications post discharge. Please inform your medical videographer/provider of your visit and for further instruction [...] migrainosus Migraine M (more content not included)... [facility] Coding Summaryon 12-30-2023 Coding Summary HTMLBase 64 WaquetikQZi0gZt+PGhl YWQ+WA9AMDGkN11meKLi sV0bT2FXYQmHDyvgGMAY YMcYBcLxjrLdPR3nnIFo ZXJu IC8+YC5mNSTiNoqhlOXy q7J9rBF5Y94etf9dPVnj iFD2WMMaEeTughiep1ax xPr6KRufVclwXmIt YYFlyT82HYE0wU34Yh27 mZVfaWYbb7qdlGa1RpZn IOMmKMA6xWvzCLesr7Jn NRGaT41ruWKbd1R4 IGNvbGxhcHNlOyBlbXB0 bN0fVUbluomov6ztafkp Esn0qf41iOUzg8H5wEV6 L6ArqaA5LDAgxDHr JuhanHOSjQ2ypohvf0yy itzyYvFdQMWiTIc8QFq1 JREqpZvoJfPpIR22FDC8 FSEeesWbD6TaUAFz rNfwZoM6k9X6Bl8MK6UV NzgcZ5CJRVGVNVcwsWD+ LS80aj21X2ZnGeqbFrk6 HAYkUAK7aAH0jU0w XENsEDjcv5S7yPZ7F0Ir xhIbra5cj8wiHBPbTHox P56ixAAfy8T2VMNfuLZ9 QZKvuLuiNlMmnW58 Oyc+XLJmxTail5GeBsqs w5wqq7gomEp7WwndKQJb hrUxaAbtNHT1q8ReDg6m PRTdbWJ0sHV5kQ2c ArIuVuC1GStfG072WcZc dOMmIevmE30mB2KavYV+ RDIsLox2TBPetIihRE8f D9SbJAFfgmuauKWi zIjpKY4lCZMflcpfJMEm gP4sHHDtA0u1HjMpZrT5 DDnnT7KnMAAjmvavUe83 hS8jRbCdBfU8RInp Z0YdwaW4BALbiZOfWZfj XUR0E46mx2G6TMNbMQYt JNV1gPB1aH0zdYouwcyk bGVmdDsgdmVydGlj JUbtXLjbK788ZDEsiHhz PkNvZGluZyBEYXRlOiAg MDIvMjcvMjAyNDwvdGQ+ FKJaTKI7kOlyGRXp aTVoKGscPt0biDjgwMjc CZ7vHTNnnjhvVJHyqH8w JKUjeBPjgFgeKK7pVHYz hqebv885ViFuXKG9 STHelZHvN8KlqJ3uLwPz AYVoZRQiE3PbgQWzGMys M039KOluFnD1YOFpoxCd B1SpUAFpzOwaEvH7 b4L5Ed3Se0IirljtC1Bb fVMhMhKnHksrKIs3L9Tu PjwvdHI+JZ90EMVbHD76 PVl8YFY4aHteOSfs QHVlM4YelP0eDfZrSHHf ZGRkOyc+PHRhYmxlIHdp ZHRoPScxMDAlJyBzdHls VC0uKm5kXNOgDJHl wKgbbWSoNtUul1vjCJCn ARikTD7pgIkdB1IdoFC0 TXKvj0p2Jk95R06zS6Zy dXA+DAVgpNB5sIR4 pT5kOvGvWkG4LSvsS007 UrXrtPThHwixx1pyz1bi pWq6KbQ3VOLtkvYwsIzw VCC0a5DvTs62N29r IHdpZHRoPSIxNSUiIHZh fKldkp3moM5yYl7+PGNv eIZ3qOD6xG6yMdBfAyD7 KQjpE726WjNfbWQi Qjtji8xur5utsWk2UmWn OKAbgpCwsXrwKJD1v3Hl Cq11P6RynMqgs8NaMkb6 gq71sGHlb8Z3eGK2 V9LiXJDyvqxqgRNxxJdi IC3qXXLfndcbPAWnuU8q DHPxM4h6LgByVtZ8SWpo H7BoqjL6RTDvzVGe YFHxyNZWxK9vmptzf9js dbraNgQgTDEoCBx3PAe3 KDKnvFyeVrRkVIQ8YxI9 YYW8cMPxhK1kbGum anwgmG7sSsl+DBB5jTIl qJUCGJ1fJnewyVE+PHRk EIX7aXgsAGmePSVdpG7x ZEXnF0f3ZvHfNmD1 RRsjU9ZvwcB4SHAzvFSq LVZxjZBDjY3xrqxny4nz ctlyOdIcMOHhQIf9ZMb2 LWFsaWduOiBsZWZ0 ZmM2UOW6kSBrxG9vpAtl gjadzP8mGsn+QmlydGgg GOX9GAh1D5YpPif2KUIq zQocBS7cgHXrWGqd Hv1fyItukNpeVK7gZMBm bvvul851EsBnw1pjZJTi uMDgZRqrBKZ8A04dr2U6 SHGwLMKmBUC7wBH0 vV1inUarrcjliHCbpHup smMreKlqQZwvPGwfW071 FMHfxPxhFeXcQKh2L3Vq Fyv0WLLniGwiBJ4s xWAzEJudKa2ewMctlSti KF8nKMYynmhja806BuXy h9ajUMWsjQNeSRjvBLX3 K06cz4R1MFIbGSZz POI6lNS9nX8bkYwzwsmc bGVmdDsgdmVydGljYWwt CWhdY393DPKseHbmXtNd mJn9C1JpSno5RTUd uVrdWW8hyOYdLAjpVu4d nImwkUtyUC0yIPLkpeel s944BhWmz8kjAJBseDQf WDafATX0J41ji0A5 DNGvIZOcKCP6dPX5oS0x bGlnbjogbGVmdDsgdmVy vSngXMmjZXhlR096GSQt cDsnPlBhdGllbnQg DEkiTJm2C0XpGijwwDS+ QW69IMNnRA82vWYmeOSd z2ymyKx2FmCaTDTwDDT3 fRfvRJrrd5ImNOYu C46yhDCtb7T6ZWVowOeu eKAzVmEisAO4nQ4wCFny vzlfd6tphtjbQkrot6qe ru05gD72J93bDBzu ZHRoPSIzMCUiIHZhbGln ry3yyP3wJq8+PGNvbCB3 mLT7uF1hVSRoPwH1KCwt W492HvMbwKAkZpao j5ged3hwdAh1JwF8KHQb eeSoaHsoRNZ5e2OjIe83 Y79sGVjvKWIhZSGjFZYw NPFqvSruck9rrV0d Ii8+MZPxlWN5tFG6xR4o BdBqWwT6GKbyN218AnNb jROcKclpV19dV4HywSN+ SSRwUvu3CHXyyTnp RV8pxDDzNRtrWb6tZHI0 IwXkKmNvIKasH9VpHRFq fdtvccuyaFF9XWDvLYJe xV75Be8tiMimTVCh lBUKpB9yrwpcz2jjgkra SqDaBVVwGJx8VWy9AVQf aZfmRnKcTKY1VwY9FPN8 uBNwvS3tiXwspcjp zF6aI1KzPLUpzwkwSm08 yZ8bMmJbMvP8IZtfOqs+ QjCFOAWfWFUQBf2IVLUL RTwvdGQ+PHRkIHN0 uXcaQXwhHXMezW5cOLVp T7s2HyRcDzN2PCmqT0Xm JKEuaxzqXs08zB1vZhJm TrF9LIptF0BqoeK1 HMYjjUObDBktZTI3L56q i5S9SGGmRKOcBUQ1nDM5 dQ9qvUtzvyuzdYNajMse dmVydGljYWwtYWxp T095QBFkoBudMnKlGtVm KzT8TrD0Y6RhDnc6CYKc sWmhWJ6ggVToSVuiAs4a uMuflUqgOK5qAJVj qsybSLReiV1zIZUfiGHe aPzyMT3rRAVxakzhl813 YbFiWPR8OTPyhBHsK3Xi uY8lXbRcOUKlREAb J2YzjPEhGMvyZ032RGkg QrR8ADIcpnQfK5WdUUAm rHgxUtI4f5U1Dk22COOU ZWFyczwvdGQ+PHRk GFY4lWgtCTjaOTVyqX4p TXRyO9j2HjZdRaH5SZzy F8LnFQUghexmXo53aN8p RnIbXbR2RKisY8Pf niX0VDKnyHVdVJyaMFF1 U65ra8I4EUBsOVIlWSX5 iQS2uM4msKeqmggdeNUz dDsgdmVydGljYWwt NFukB084BTFrnAexVxUM TUFMRTwvdGQ+PHRkIHN0 bEzhYAffHOHlsA9iNUHr Y5f4WkGgFkU1GIdg L7PtNGDpvjfrCp10gT7y BqAdCpU8ANzhZ8NfmwN7 AVEsfOPbSPqqTIJ4Q24q q1D3XKSsUEPcCEQ7 eQU0iJ1ngUlpvrtxdDAf dDsgdmVydGljYWwtYWxp P205SVQnnIqvYqGlISUn XP5zdBmpxEC+PC90 oz43F6RgLwrkNlb7AYDw NZC3aXU6qE9xZNZdOHfo v4R2sED9L9NlxqKelh4r c3ddDPGxOYtcB35e zIGjf4S5JSQmvCG5IRRu eTfqDxNbiU78Myn+PGNv lQylr3NdEsfrb3eob5yl gWp6HyRoCUSakyCi rAwxKTF6y3IjCo23N15v IHdpZHRoPSIzMCUiIHZh vFedjn7ixV6jHn4+PGNv aAP6cBH5hC5eZfEt ApI3KWgwB803PuPgkNVh Veauh1bby1qglCd3WyWd IUMsxaXcqKacZMU2s4Yu Ez73L6TxiObiz1My Zsf0jb95dIFql9R9yMA1 B9XnWKWsmmjzeRZffPjl VH8yVYWgxjhlAUThcB6u VQIlT6f7BgHhGoB1 KTjjG2QppaF3IXYzjZQz PAQygOEAeK5ygbzxx8hk fibuBsYeVSTvDLt5FZz7 LWFsaWduOiBsZWZ0 BuW6AJJ3tBPysE5cpXtp kdxdrE1bJap+ZXu3u4zw yGBuQH1dlZQ9MD79XD90 pTXaf8T2iWT8Y6Rt GKPnrxhswgeeuSI6WLVt EGUjrT31Jp9coXguAq4e WCJhTBZ9ZRJprRQnK9Pt kF7vWsZdBYQgJKTd U5MmmDUnTBazS009RRif SaA4FNHhwcGkK7BzTQJb eDhcWgO3i6R1Lz6VOV07 OR26QD26fWBta4Y3 yZP5D4AnJRCrxwurzgui zSI3NIZmTYSwlW87Hl1s oKlrEp3gRRDbBXN5LNZc tEWbZ7AyuM5zGoYh WTUxTSRpM0UrxJFqNUcw Q034IZvbKjJ4OJTnhbNl V0GeOBUuqBufFgL9m3T5 Uv5RGk27PA88MA71 iSIta6Q3uSO8Q5PcEPTe nrahrczjzGP2XCYhDQNs kK74He0wuGwtYf7iTQCw IPP4HRBeqVDiD6Jq wO5gInJmSBAoYQFgK8Qb aFWzNLakG776MGilCwL6 SQRjcfBzQ6AiIJQnkTgt ZgF5q4Y6Kv4XXIzt ysr5V3QxYqfqwRZ+PC90 QEIjLG28zGXpdUDie2ln xQr0AkSaQUYlVOY4dVvc DLwor2WwSDKdV51y bGF (more content not included)... Normal [facility] ED Clinical Summaryon 2023 ED Clinical Summary [facility] - Emergency Department [address] [place] [id number] ED Clinical Summary PERSON INFORMATION Name: TOOTIE NICOLE Age: 48 Years Sex: FEMALE : 1975 MRN: Acct#: Visit Reason: Headache; Headache - Recurrent; MIGRAINE Arrival: 2023 01:57:25 Discharge: 2023 04:06:00 LOS: 000 02:09 Check In: 2023 01:57:25 Checkout:2023 04:06:00 Address: [address] [place] [id number] PCP: Romeo Chaidez DO PROVIDER INFORMATION Provider Role Assigned Unassigned Tru Matt DO ED Provider 2023 01:58:43 Manjula Jo PAN WASHER HAND Nurse 2023 02:02:36 VITALS INFORMATION Vital Sign [...] Home PATIENT EDUCATION INFORMATION Instructions: Migraine Headache, Sdbt-[id number] Follow-Up: With: Address: When: Romeo Chaidez [address] [place] [address] Business (1) Within 3 to 5 days With: Address: When: Lisa Martínez [address] [place] [address] Business (1) In 1 day 12/26/2023 Comments: home call Dr Martínez's office in the am, for a recheck apt Prescription for ketorolac 10 mg You are welcomed to return as needed. T Verna MATT< ER PHYSICIAN< Verna Cornelius DIAGNOSIS: Recurrent headache Patient Understands: Yes - Patient/family/careg iver verbalizes understanding of instructions given Comment: [facility] ED Note - Physicianon 2023 ED [...] Family/ Social History Medical history: Resolved Migraines ([id number]): Resolved.. Surgical history: Rhinoplasty ([id number]) on 07/10/2016 at 40 Years. DNS (deviated nasal septum) ([id number]) on 07/10/2016 at 40 Years. Nasal polypectomy ([id number]). Appendectomy ([id number]). Hysterectomy ([id number]). Colon ([id number]). Comments: 11/18/2023 21:34 Etc/GMT+5 - ShuffPatricia RN [...] Doan RN (more content not included)... Normal [facility] ED Patient Summaryon 024 ED Patient Summary [facility] - Emergency Department [address] [place] [address] PATIENT DISCHARGE INSTRUCTIONS Patient Information Name: TOOTIE NICOLE Age: 48 Years Date of : 1975 Reason For Visit: Headache; Headache - Recurrent; MIGRAINE Arrival Time: 2023 01:57:25 Primary Care Physician: Romeo Chaidez DO Attending Physician: rTu Matt DO Comment: Visit Diagnosis: Diagnoses This Visit Headache ([id number]) Headache - Recurrent ([id number]) Recurrent headache (R51.9) The Pharmacy at [facility] is open Friday through Friday from 9A [...] alcohol and/or drug addiction problems; contact the [facility] 26/05 Crisis Hotline -Text 4GXLA to [phone]. If you received any narcotics, sedation, or [...] legal documents With: Address: When: Romeo Chaidez [address] [place] [address] Business (1) Within 3 to 5 days With: Address: When: Lisa Martínez [address] [place] [address] Business (1) In 1 day 12/26/2023 Comments: home call Dr Martínez's office in the am, for a recheck apt Prescription for ketorolac 10 mg You are welcomed to return as needed. Sajnay MATT< ER PHYSICIAN< H B [facility] Medication Information: The exam and treatment you received today in the [facility] Emergency Department were for an urgent problem and are not intended as complete care. It is important for you to follow up with a doctor, nurse practitioner, or physician?s electrician assistant for ongoing care. If your symptoms [...] so we can reach you if necessary. [facility] Emergency Department has provided you with a complete list of medications post discharge. Please inform your medical videographer/provider of your visit and for further instruction on these medications. Any specific questions regarding your chronic medications and dosages should be discussed with your primary care physician(s) and/or pharmacist. Medications That Were Updated - Follow Below Instructions [id number], [address] [place] [address] [id number], [phone] Updated: ketorolac (ketorolac 10 mg oral tablet) [...] Drug traMADol Secure, (more content not included)... [facility] Ambulatory Visit Summaryon 0 12-23-2023 Ambulatory [...] PM EDT With: Romeo Chaidez DO Where: [facility] Office/Clini c Noteon 12-23-2023 Family [...] screening: overdue; gets this done at the [facility] Pap smear: Test Technician - Dr. Sarah DAVIS Labs: September 2023 Smokers: Low dose lung CT: List of Providers: Neurology - Dr. Lisa Martínez Test Technician - Dr. Hicks - SUSAN Derm - [...] Initial De (more content not included)... Normal [facility] Comment on above: Result Comment: Rena [...] primary care provider or a mental health caregiver services home. Your health care provider may use a [...] management. You may work with a assistant softball coach who is specially trained to help people with ADHD manage and organize activities and function more effectively. Follow these instructions at home: Medicines ? Take vypy-fpm-trbblzl and prescription medicines only as told by [...] th (more content not included)... Normal [facility] Coding Summaryon 12-03-2023 Coding Summary HTMLBase 64 IcngwkltTEj9bYo+PGhl YWQ+PT2MRPBgG04hmWSs rP1tY5BIQMwSYdsrTYLY MOpWLaBgeuRcTS1zvJPj ZXJu IC8+GD8pRRFxXzfhaAKi k1W5zXG7I81otj3yMBfq qZS7HVOoWgYfglrdw0ci aRz9BWpyAxkqOgCh BSKubF47LYO8gV03Py87 qEWirPMlo3agyPb8PgVu LIYkXSN7dFmoAXkhn5Yn SYQwE34nsTOkb7Z2 IGNvbGxhcHNlOyBlbXB0 xM5pQGuatwhjm5qezlyp Req3tz11gGNkx2S7hBD7 G9LijuQ5ZDEeaLAt CibljXWYqO2iskbzo2wg cspgPmPuCTVsCOo9GHc0 NJFmtZndXyKhYL95CDE0 GSQbsuZiH8JaZSJx rWnvXuG1j2S5Qy7IP8ER TvdyX7QRHAQQXAfejUE+ PC23ym92H0WcRmgzFuz2 GSJiFEN6aGX1hL1w IBRdVAity5F6wYM4I1Sx ugMjdj4vp6zbWCVrFWpl T02xbJRif7V2WYRbhCN5 VJIwwTstHxCzgQ52 Oyc+UNEnzInnp1ByEvmo l7eij5ukxNv5PlzzWVPf fxCjeXiqHSB5u8BjKi4x MLJhuDX8lYE9bM7j SoMyEqK4KUxiR726OwOg eIQfUzsaT21wN8YkvWZ+ FXSzSgi3HTIczUqrQJ7i F5DaXGGffoeynKIt sHtwDY1eQEEpoxziNWKo vY0bGROoZ2b4ZtGhGlU9 WTmcN0WhOOFxmjukOv51 iM6rBaPzQwC9EIbt C6AjmoZ2LUDmtNIaNUuw WCO2F40vb9S0AKXsOMBm JON3jQQ1aA3rzHvtcjkf bGVmdDsgdmVydGlj XBzzIXnoB568EICwaXiu PkNvZGluZyBEYXRlOiAg MDEvMzEvMjAyNDwvdGQ+ IKQfSDE0yTxiYMDq kMIoVBncXo1fwRttrEre DM4bJVRpplndMDHtbC6q EMJntKYnfWapHG1mBSWt rhkrq871KxEaSUT6 SUTjvTEjX4EotU3mQmUy SZSsWEQlH9AquQEwQOuj R174YMytRbE6YFOuzoBn F8PeXITugBhkKwR5 z7Q8Tg5Qz5TsfqhwA1Xz iAWxGvZsBthmCIt1Y7Vf PjwvdHI+XL97PDAiMT57 HUh2OHZ4sKigREei QQPfP4JnvF9dLiQuRBUm ZGRkOyc+PHRhYmxlIHdp ZHRoPScxMDAlJyBzdHls IB7zGp2qDKZvFULt aQbrrMTwDyLqi7ucJJBz LSczMR7nqRztB2UuoFG2 ZJJai0j0Jw51I95fD3Dq dXA+SGKnaWL5zBM6 hL7qPzJaQqX3HWshA507 JeNrjBHsDcakr1aiu7qw lMy7RoW6QPMrumNelFlw ZVJ5l6OyCg79D04b IHdpZHRoPSIxNSUiIHZh dEyiis3osM3oDc0+PGNv hCE7rYD0sG4vXzEaToW2 EUoyJ969CfOrmDJf Ufqqr4olp5nuuLd8GlRo DKDzhmBcfOcqQTN4n7Cw Pj60O9ZqfKltw7WmAwm9 dw76aQXgj1N5nLB7 V2TgDBSlielzwPAtyZlm GP7fHFLoygfbYZYnmI4t BDMmX5i9VeZcTwC8EQzs F4ZzjoT8NXWutWLj WVIcsIKZxH1hcrdei2fk komcDdOsZKRqKIq9AHx4 DJMzqVpvAdPmVPO3JkG8 KMO5gNYcqA1yiRfp oydtiA5nFmj+SPV3gLXd bREMPM9sWmcroNI+PHRk LUU1pSxjGVoxUMSkeY0b KQPjY9a1LuMaKsQ5 ZCucZ9SjpoA0HPVnnDZj PVUmxYYZsQ1wmdrui6se jfqsKgJbPXYqNGr9FNq9 LWFsaWduOiBsZWZ0 VbL0IVL3mVVsgQ8peSak iawnaK2yCxu+QmlydGgg UQR4XHj6K3LoRnz0TKKw jXyyVA8rhATlAHcb Ej0dyYcxtWcfSM6aHPLn oofup594QqNsr7twADIk pSMrXAlxNUJ3O51nt8X0 TJLvHQMmYWO6qCB4 yM1vkKmzxvftyMVwgKbk lrEvgRjvONjaWNnfN399 WRYurCvsYbDyAOn6K7Vx Iqc2OMPghIlzTS2p pQTxQQyyCa1luNuizHov QM1fATGxlhhrn165SlHi k7iuWLBqcVHdMXhcWHI9 L15xo1T9ZHZmDBNu ONF4qQM1wZ5vpHodixbm bGVmdDsgdmVydGljYWwt XHycY291HEItbFehQsPh eQx0C5UcCbc4RMRb mPqhWC8pqJCmPLhvJh7a bKaukRfySH3pNIJxrynb u233InDfe5zdHLTokXFz RJmbIWJ9I92nl6U8 XNYrFKErUGG2uET0wZ5c bGlnbjogbGVmdDsgdmVy hGijPOgcTMtzU918JRYv cDsnPlBhdGllbnQg MPsiZNp5L6BsBigogEU+ YX79ABVsNM53bLZrwLCy c1ambSq6KkWgPDMrICX4 mXcrTRicf9WfRONt Y18egAEmp7N8YBHhhZvd mCVeQsYveGJ0vX3dPFuj xlpfd8ohjxdmAxqrn6qu zp47jE76S47uKZnl ZHRoPSIzMCUiIHZhbGln tw9fkS2gQg1+PGNvbCB3 kGI2jM8dFQMgTgC5GBwq L654ObKbpSPgYzhd z3qsm1zhhGz1KeZ4SVOy faKgkEvrZUN7e1AbSr86 C19aHUrhRWVjGQZbDEAa RVSgxUjojp0amX8m Ii8+FRRdbVN8qAP9qL2m PiJbBjS5PRgpS688HmLm hAZaNwghX65vE0LhbVB+ MRYqXaa7BZGpoPnj OF9ayMStNLefIl6bKDX7 FxRsIiBtRPpkQ8UyELHq aaiumcniyPF2FRYzDKBe wR87Vt3uuLypYPWd sKRQlD3jcxzfd7sxhpxq OuGiGIBnACx1SVi6FCWq nEgbTnLkOMK8JkE3IHI1 bNRdnK7ldHpxhdpl hL6dF4GyZSUkkuygXl55 wJ4sPzWdRgV8LXcwNyb+ IxNAWFYhZSUIFy8JHKEC RTwvdGQ+PHRkIHN0 gKhrHRonUOPoyC6wHHDy M7b0FnBwVcP0WAzwM9Ya XJXoqdxeEw16aH3mFrOi FjN7OFvjJ9CdlkI8 KHWhaAKiAYyrZUH4Z49s k6X2LCDlLJBvEQF4aJM1 gR0miXrvwwbfzZQrhRhq dmVydGljYWwtYWxp V358KKZmsRvzNiLrMlBn XmQ7MmF2T6WoNuz4HOAa mKzeFD9giTCiJSexLj3g fFqxnDntKC9dAEQv lgjyCLLgmX2pPICyvNQi uIlwZZ3rJUTwwzfjs836 YgCtZUO9HAZwrWFmV1Le cU7rZkRjGFAoVFSl T2GpdRBrIFzlR156LVac OaT8SCUykoVvM7IrKZQn sOaxVhJ6p0F0Iu51ZPTS ZWFyczwvdGQ+PHRk MBV1qFrrCZlvGSKmdK3c FLMcD7l8NkZmKiE0DJah V6VaPYBscwqxYa04hW8o FfJyXbD6EDrvT9Jc zoP4OZUgzPOuUKoqKAY2 D07dj8O0GGUzSZLyQEF8 jDA6oZ0oeHoqqzrflDBn dDsgdmVydGljYWwt APzoC530BGOizLlvNpAG TUFMRTwvdGQ+PHRkIHN0 yNcaAJiqUBVouW4aTJCj O1g0GmOhAtI7QHci F5HnIYIzrzwtEe65bP6q NzAsFkV9RLwuA0DyyhL1 NHBnjDNqYOdeYHM3I70n c3V2XLWzSZDkVRM6 dIA7aT4iqMhdbtailNGx dDsgdmVydGljYWwtYWxp U040YIWypJfkQvDaNDZu TE1aoXewuPC+PC90 on93C0IlGnwsQtz3ITWj HTD5kIA7lW8wQEPtLZme u1T5ySJ2J0AnigKozw7e r4jhSQUwIZvxA79v cNIsa2Z7YVVuhEK6OGYp yStpXlMfjR44Wge+PGNv wVxdo1SwWejsy7ido9su zJg9LzMfZVEccqYs bTwqFJG5d5AgJs77C71e IHdpZHRoPSIzMCUiIHZh jSgrgc6dyF5cBh6+PGNv iBR1bWT7lO9mBkRq YnM6LEuaC976UpLeoCDw Iliex3lzm2ousTx3YaXz SWMvpdAovHxoUQQ9y8Bo Ov68L4GezQdny7Jj Jbq6rb77yIUil7K1rNQ0 K0DvKJPllougdOEszQwk FS4iVUHtqlipPWVlqL5n UVZhG9t2JjWtZoP2 OWjhL3MeiiX5HCKpiTDi FJJvqPXQkH2zoxzei3ex ydtaMaDjCIJtOZr8MVg3 LWFsaWduOiBsZWZ0 TqD0MSV1xQIpoS5mkSey vljaxU6mSnw+OZo1f7zv oRRaAT5kqCY5BM49PQ04 hNWuy7L1zPR2Z2Xy GAZazdxccfbxhCM0TNRw CNZsnW95Ov9vcWbvVd5o DYNeMRN1CVEllVFzM3Ok xL5eMqHlPYFiBJVz L7AaiROdCPcqV400XBwf AjH9VOGbakUpS0QpZVPs fFqaItZ5i4D1Ur7ECI86 DZ25OZ81hJJru1N6 mET3F9OrMZSjzmlvjccz hAQ0VSMhARNqbX23Ho0b cThbNj5jPLNjSJY5FHNw mXPqB2BabF2mBnQv VFGrCMZfQ1HriBQzDUqt N408OCmcKqL7XJHlaaWy D9PdVYNzvDsmByU7m7K9 Tc4NZi20MJ31RL53 xLWcm2W8mPQ7E5PrESCx yjpanptkjML2GDBhSBXz dK81Nf3eiCmwLi1xZIOw YRR5MEZbxEJiP0Lz zX0vLjPgMBIeDVRuE4Ae oAYgTSleO815BDirZlE6 XDCzoeIkP4JpFZUwaMvz GpZ4l6V3Zq1ERXql ejq5A4HxQwrhgAV+PC90 KIBaDI76xRCudOKuf0al kFl0MoHhDXJtXRO9uXuo YMuov9JtMIMuT21n bGF (more content not included)... [facility] Coding Summary HTMLBase 64 SfqkdvvfYLp6wPd+PGhl YWQ+MT5ZDBFjL61gxQMs hV5cK4IBTPxGJsynIDFX OLpSCtCocpHnDI0edZMl ZXJu IC8+KV3vAFKkDamzjVLf h4X8mIJ2H15tkf7sMYcs qBT0PJJgXfXevjtja6oh eHs7HLmsGspxMsWq VQQewE20ZZV1tW34Zc39 sXIphBEaf1hfeHx7EbCk MOMdACY2xZsfQYubk0Bo EVUvQ43rwUXae6U9 IGNvbGxhcHNlOyBlbXB0 rM4uDQaayjfjh2ypholf Hte8ur78hDMaj1Q9eWV3 Q6JokbC7XOVgsQFu IejerPPQkK0wewehh0ad povdSsLlQFYuVLp4FOj7 IPVdbGqwLrJfDN03JQJ1 ROVfvqGzS3RpIAAu pUkmJiJ0h3S3Dc5RV8JW CzrpC1TKUVJNGXfxoAW+ JZ70sk21C4SsHuyeRkw2 GKUiFYD5kKZ4mF4j ZMEvWWsef8M0vVC5Q0Wm upElij5kd6nqEXYiKWtn M66vjRIqt1E4FAHfsBB8 MEJhcDveMuAfjI73 Oyc+SYEvyPigd5GePwwu s1ndg4whpXr8DqpoDTOn ayJgqLhaRKX4p3TlGd4y DTGokWT2rED4eQ4k NeQuTuG9WPweU375ShEr kDMqHkqaY65xC8DpwIE+ HQOyNwn0KIKhnLrjAA0b G8KrPJWuiassuEHf iYuqKT5fWLSghxlyXINl nJ9rOLIsT7y0FrHoRfT7 JKdiV9EnNUQbwpjvTv31 oO8oMsUuEnI8NQeb K4WcwhI8XGFueDLuLOlp PRO0Q96cl0V1DMGrWRXe IYN0xAM3mT5lzOnvaoge bGVmdDsgdmVydGlj KLybOOrhB998ZXEaxUcy PkNvZGluZyBEYXRlOiAg MDEvMzEvMjAyNDwvdGQ+ PDHsFLF7dXnuXPLl sIGxNKxvSq8tyJgbrBvd LU6qHXUslpmwCPVbcF5e WUQniYOqqYofJH1sKMIl suwzj319CwYeDXJ0 GSGrgLWvA7ZjcR3tQhDx CHAdYAPpK2KbrRAfBYna D558QYuhBiI8ZJIthxUl R1WpLDWgdPliBvS6 o1Y1Ot6Nf4LybmvtQ0Iv cIArXnLkIpjvPNf5X3Zq PjwvdHI+VV98HYVgIN91 JSx8GZQ6eVkaBXkb OHPlE4BenF3mZyCjMFBv ZGRkOyc+PHRhYmxlIHdp ZHRoPScxMDAlJyBzdHls TZ9rBs7uRPZnXYSd wIimqBVoLwBof8iyZAEk YIrmGX9eqMovS4CyrPJ5 KSRwr8e0As90Z12sW1Qh dXA+OXDwgEI0wJY2 fO0zJwTeMoH2SHbiK168 CfUrrNGdKdugs6cnk5rt cKc2WuZ5SIEjisHigGed NBA1m3FoOe28K44q IHdpZHRoPSIxNSUiIHZh zTuytz0ziP3sXc6+PGNv yUG8rQR2aA6iVuKoMoB5 XHcbR976KxTczBMt Jvjia5bla8jyiDn7RxVt QYWybdBnsWuzYJK0d5Za Dp55S3WvlMnum3IcXya5 cw53tXAgr0H1hCZ1 F2CpTKWwriajtSKylVxz YJ6cLPRckhtsFSZpyL4k ZCHaJ6r9MvNfVpU7EJpl I1RwfbM5APKgeESw VYFxxVAIhO4xbayhs3pf ssgkKtHnIVAtEDs3HNa8 MDHqwJrcEdLoDZC7FwA0 TMP6lOOybH3ggAwg xyrpiW5oAkz+LCM2hCQj fDHZLP8xVlcxiYC+PHRk PMA2xBhkHLtgLMSubY2v FKAaR4f0YeDdRoV7 EZgzN4GhipJ2AYIxkNMj AVFedDKBtH5rgngmp1db hroqIaVpSPQlBVw3FTf2 LWFsaWduOiBsZWZ0 AkV4YRD5mDPgoM7cmGst jxsvmA0pUyr+QmlydGgg TTQ8MYp6I5VdQxz7OXNg uOpbEJ5vxYZxXSun Xz7htFopnGueIT4aNSSe ymokr542QfZnu7ciAMMy zLPmJKafFSP7C22vq6H1 PRGzTKAaTRL9rMF2 oS6thYejcikuyZQgnVsq teIjhOkxPSsyMSusR289 FSJqmIcvFgWjQQq3U6Fi Lie1YLGviPqkZO8a jHFnULboQx5pzDqryFmd NW5ePFCezjjrc515ZdNs e2xcCTRybJUmJRotJCR4 P34xs1K0GNPhSVNk IPB0pBI1pE8ecJeeghlh bGVmdDsgdmVydGljYWwt FRxeB880MEBsgKqbTgHa nEj7S9XyWrh0ECWh cIjeNU4kfRYvHMneKf1x rJcasZtdVK2cNCZrxubd q365UoDme4vkXUPqiXJm NChqFKP8X09xd1O9 DXMmXFXtXYT4xSA1fM1m bGlnbjogbGVmdDsgdmVy dAnrCPphIKhnB490WKVd cDsnPlBhdGllbnQg XQooWQz3Q7RlQkqedHE+ AN27ZRQyNI36rNOypPXt m4sasKa6WhHjHGTzLZL8 gEhyUDbhp6AcAINy H38kxAKxv4U9XORpmRno nMWoAxTmjMQ8oV5dBVph yjoqk5cravutCikta7ht qz80gC23N02uQZap ZHRoPSIzMCUiIHZhbGln na6elZ1aUy1+PGNvbCB3 yXV1eV6cJJGqPsX5OIpq E322EnKpaSWtRzmi u4acx5pbuPb4NeU9LFDy mrWjfWmgVPT8o9XeWb73 H64nAQlxHHYhNZXmALZg PSBvmJhexq3qwR2g Ii8+DALttMW8nNL5zR3j RgToHaK9XMosP193XtQf sITxUtyeB85eY8FiwEW+ JBZsPol3ZYOfzXme ST7wwGMpLGcsMe6cTWF0 FaQkIzZiBGhxE0QwUINr sndhjljhlCD9GULvECUx tP43Ec0eaTfrABNp wGNQgJ9oazpou1kxrdii TqVaYYYxLBv3OAh6WUIv yGtmAtGoKYH5ZmJ6CFB1 sIOknC5bfCiafwmp gR3iG0XgJXYiedzcRa58 qS1hVyEgHtI7QRqtInu+ GjHNNRLxBCYBTo2KPKTD RTwvdGQ+PHRkIHN0 tNuhKXgeYHNheS1fUUYr J8m6GaQgDmX9YQxoU6Zj MFGfhsahXq14iW8wNkKo EjB5SEuoX6BawvT3 AJUwhJWwKThlHXD2N51f u6X1FMNnHPZgXIO9bCT0 yH2soWpoxfpvdOKycNni dmVydGljYWwtYWxp P015EKOdwXubQlLmBcZc TtU1TsL3O9IbFrh9FRMn bDqkXC9soXSfFXhtPi1f xJaiaVlaKW4cLOPv apdpFTOjoU8iKXJkiOKz zTtpFM5xHKBdsrdts526 WqCpKEL9SPUjtLGfD7Rg oI6vTuUcFMOgBDMh M3ZrbGRiEGomE588NYxs VfS0DARsuqOlB5RlEGSh hXwmXqU5z2R1Yg22APTA ZWFyczwvdGQ+PHRk ANS3tXbmBQnjJORqxU6z VAQvJ7o2RyUdXkA9NDtu W0RqHLDzewdpEt82aR8r XyVbGdY1FJnkG4Ym yrT8VPXtoAAxFBapWCI1 C85tr2F2DOJvOLCqQBF8 pBS9dN3gcLgmkfjlwALk dDsgdmVydGljYWwt XHsbV640TVCqaQreJbER TUFMRTwvdGQ+PHRkIHN0 iCpqVLsiGDVspP0mTJZu R3z3MgTjQlH8SAnf K7XnFUTnkunrOj66uT3m KbRpHbW4MZdxX1GnouS4 YOKdiXPhAQmvUWW9N34r s5B0WERvTNHmETV0 zKM6wB2ndDujvsoxqAVs dDsgdmVydGljYWwtYWxp H809TMCcxMmdPmFeKFAn LU9pcFxerJF+PC90 sy43J9YmQqusMjk6BTEx OSO1xKB2dY5hLSKwKMkm e2I9qQU2Y4IuntDgby8n n1nrWSHzZNjqT61h vLZoz9M1XPAykUA7MTZd xQglBjEogS57Ary+PGNv mWhdh9ZiCiplp5qrr0xo pKa7AcNnNEGfuzZv eBiwKWN2w0UlFa44L61p IHdpZHRoPSIzMCUiIHZh yShapq6mvC3hBz6+PGNv uOI8oAG8uM9vNvZf BiX8IYegL294JsKklYHb Sslho6rlj5atwOz1GsCe GTOkflCdbSnrXQY9w6Mt Os53E3CsbApun7Iw Kpq4lr08mENuj3R5zZJ4 V0TbGEVragbmfXIolLso PY5kIYFowcbkVVWlmK9l MFPsI3n3ZjHkOnQ5 LWvaB6ZjuuB4HVBpvONw KLNkqLQXcF3jacchg7ov ohkbUpDrOXImLDl0CYp5 LWFsaWduOiBsZWZ0 HsD1MOY9jNQajN7jbUfx tvwyaM3eBqy+VOq2v9wn hOBpPD9mbJM6AB72BU76 qEWke9W4iMK2J4Ce HZLgcvuunfnglRY7GSFm QSItqJ87Zl9lvNmlDa7a ZGUuCTB9JMPjiKDkM2Ni zR4vDiAoEFTqMDBo Z1SslQHzUAtjR858NCvo XnU7GVSiunWsC1KiLTPp gJebMnH0d0D2Sg8UBJ77 YA91XY45wFMzy4A7 mJC4B8EyRRRkjdqbffpa fYG0WGDuWOMibN73Fq8h yDlyUv9kDPZhDWW3ITPh tGJwT6EsyG3uBeIs TQSuVOFwC7GzgXPpPJjt R878OXxoIgX4RUSchbBy M3KpWZJcdMtfWbD6j8B0 Uj8MJd37VY57YU36 hYFth9F2wUC5O5TsUEWy hisctwsafUZ1UFTeROGm pM94Jc2arVsrMe4aKXKa ZHH3UIZrvVVpA0Eu lD8kMmVoSESmZSZeG3Be gVCtHQtsQ628EJhfUsV4 VXPimvXpQ3JiSHPedWpe AnY2x6F0In5ATEyj mcd3V1LcIahybAD+PC90 DZRlFI29bPUenKPcx5hh cKq6HlQfAJDcIHS3pRtp UYvga8ZuWGOyF27a bGF (more content not included)... [facility] Coding Summaryon 12-01-2023 Coding Summary HTMLBase 64 SrhkzdmlTMb7sEt+PGhl YWQ+YE3DEZCxE83tlMKn fQ1rO3IFSTgDArvfDGYN GBmPXcUbtaTeGX4reVMj ZXJu IC8+YZ8zHQSxOtptxGHr g8O8vQA7S07trz7zWVkt iFH0YITbDkDumohba3tx ePr1HIcvVwvqMjSs ECCzkR63HNC2dW67Ut60 eJZpmMFoh2paqWa2IrEq GPZtWFD0vKerNOwig9Sw SYUuA29dfPMnj0A9 IGNvbGxhcHNlOyBlbXB0 gL7gEXetidxwd9pbgqbk Fdk4sc24wHNmu3V9aFH0 M1UhmqV1ODKvjSWb JcllaSDFvZ7schyay8cg wvanMgQoJOQqMBs7ATh2 QNUdaRwyYcGvGT92EPI4 BUDsaoHjD0GsFPOt uQsbRbM8g7A0Ta6GG5IG NyypB2HACKLFOHwjxPF+ KU55qx10H5FkMwffEmr4 MBHdWWA6uIJ4eA0i YYHqSBklc2S0xYV6D2Sb yzFnwl5vv1ijIJUkONhi X61ruAIla5L9DPNkiZI7 AAGfvTfkZyEyuK82 Oyc+XXDqoMmhv9TdFxrj f7myv0ranSq8WpwkRRTj jwRgfKphNGA2x5GhEf7g GBTkpLZ5pFX5wG5j FdGuXeQ6FBkfM511XnZf nFMvFqbxJ68iR2NdnGL+ NZTnKfz1FAOrcGnlGG3y B5YbHBBpcafxxEVh hStmTW2nJFWwomesWLVz dQ7eQWOuM6e8DwCvQqY0 XKdkE9WoKGCemvtoXf51 lW2lFmQvQjO2XLbi T1RczhZ4PTYemLBeKYjs XJM3Z71fb0E4LMXqFKLy OFB0sJZ4jQ6awWkymrgv bGVmdDsgdmVydGlj XJahLCdlA835UFXjrVva PkNvZGluZyBEYXRlOiAg MDEvMjkvMjAyNDwvdGQ+ HXMyVXO3fOpiGJIx tDFaQIcjGk7zdLekdWjn XG2yFCVggtpkGAMaiE8x GWIqxMRoaWkgYH9bWUOw agiby292JzKvRJU5 IUCqoEWjC5AurE9fIqDv CNCrZYNlT5CfzPHaQIco I377JAnuHlT1XKKqcoSk K3TzINFeyIxzDdC7 x4C9Hq0Ws2BtupjjP5Vb cVNsKjWiGwhmJZi7P1Cc PjwvdHI+NV87UBIkPS58 UKt5PUG6gLhyKIws YQXsB9YheU3vAlMaEIVr ZGRkOyc+PHRhYmxlIHdp ZHRoPScxMDAlJyBzdHls XG9jAz2bFREiQFIr dOjcdJSzLsGnk5ceXKAw QNprZW5imZekN2LfiBY4 UXKyp5n9Yx32B72jR9Le dXA+RPQxkIE0kLY6 jR8pYfCrZlL8BMnwV488 HnEsiQKsXowma6bta1uw uXo4ExA2NHMddgObjXvs OIO2o2FnRg69Y81q IHdpZHRoPSIxNSUiIHZh qHzihi7viA9oXn0+PGNv fYB8wSK8rQ8uDgVfZwQ6 AMcyD002NcNikFPv Dvzif7afy6pbnZy4BlVo AJSykjPgaWfgGEH8m5Bw Af15B9TxzPsqg8ElHks6 ru03hWBvq8A1lXF6 W3QpXZEiabsyyHAjcCex PT8jPXEiwgjcQHEpwE2z LZGmC7m4TbXoCxT5GSvj O6ZjsxB7VKVgwLEq XWYlmNSKvG3dmldux1ll hgivQvMcJHVdDCi9GUe6 ZSUibEnvNzReWJV5NeC8 EKX6nEVkjH3bpMzj fzewwT9pVqj+PTX9iBWi jVUHOD1jEmykrUS+PHRk AEK1wVrmNJlqRLJqyP7v JXBzZ0s9SkMuLzD7 KBjxE7ZumjW2JTWgcEZe PIGuhYPBzZ2zkjkzz8rr qbqbBkDlDLUrLWu4SQc7 LWFsaWduOiBsZWZ0 PpT5YAF2fXXqfA4wzOqu yseojH6jHgd+QmlydGgg RGF4QDi8U9XlJhi0SFOh kZirAA7ljFKkSAfw Yt9nhPojgGioCF5fLJEy shqlh278ApFhf0eoOWFm vIPkVMcrKVZ3K02yz2S3 AKRiADDyIMV4qZC6 yL6cnMsxllcruVOwfFvb tpPfaWaqCCfjKRgjJ672 URNibPcoJpBrFEm2H0St Quo1XIScwUjhIN5k fIQwHEzqPh4nfWpzzAut LZ7dWGMwmtock485UsXx g6exYMRfcHRtAHgkTOT2 F93gs7J6EPSaLYHh ZGS1gNL3wV6xgOjrsquu bGVmdDsgdmVydGljYWwt EAjtS922BLGcxUntAqKe gPb9T4XcPzt6DYZu wDjfIX1rgFTzLPbdEe9m cKpsoIsqHG1jDSRnhhic j019KhOrw7hcJKYxoQGw XZigLMC5E85gw3T0 LASnAKBeJEB2wRB7fO4x bGlnbjogbGVmdDsgdmVy xBlbGBfhDGgbE674ZLAw cDsnPlBhdGllbnQg MZwpHEn1L9VlFmbyaDZ+ EG46JXVlVR80eRIgvEDk s6pvvPf4JnUqCTNiOLV0 bHpfOWhuq7NbEKIm V61ohKLrv0X1KNEtlTuu cPKfLbZolQV1kD6uCDue vxptc3zuvwamQeopd0fd cy15iW33L05iQDxh ZHRoPSIzMCUiIHZhbGln xr9svD6nTa2+PGNvbCB3 oHW0kC4vLNCtFjX4VTkj M787OyOvvXWwTebe a3lah6qktAz8AiD8XIGf qhVlfSngIBD3r9TmXd96 Z62oNKtcWRMmXSDsXETw URXhuHhwur5zkX5v Ii8+WFSzlZH4qHA2wZ6k BiGzIiH4CYggN552UtWn jHAqGiilZ58eX0YbrDX+ HQLhGdz2XAOmtHhs VS9stIHnODnxXe7oANC7 ZgBbQoRqJNsaE8CgOYLy inmcptbxnDX6MRYrBBTz oP72Hf9koBhrJUJl jMNUrX1epbnwr0cqgsko RrAyBPVcFRy9RDl4TJUb hMcoFaQxXWF5TlM6ZHY0 zAFzrH0mwKvbnmlq yE0jE9QlURRpunggIt27 tE1wRgEzAsI4LWrrApj+ PgQBIUVlYAMXNi6AOAGO RTwvdGQ+PHRkIHN0 rTguCWjdMGGbfT2nHNQd A1s6QwIbKaN5UCewL3Of DSYpynurNi10pU9pDiUm FaR3EEatH9TayzN5 FGDesCSlSMvxNJP8K46y x1U5HYEqIMRgQAF7wHX5 jN5moVtkyfzbkPWswOoj dmVydGljYWwtYWxp E360PXWwhYrbXaDzAmUk NaQ2SeE7H6GkQcn0OVHm cHopDY2cjYAtWBzoOi9j jHtnbHsdFV7gWGMp jcxgMQNauZ2bJECuqGYn gQbqCC2rYXHgcoenb128 SxSbDCL3PLLfcIAzH5Oq bH0jSwFuCAVsTVJo G5KzgTLbCMmcG927CQlg QvL7JNUtjuHdJ4QhURTw sUguYgX4n4V8Yk48JSZI ZWFyczwvdGQ+PHRk KAK8rUxsVYvuFEXxwE1g NDBpR0l9WsCaHzN7BVfq D3ZoUJOxwivmAh90eR7z QkCfSsZ4BNfdW0Ku gkN6WCClcGBkXWzfABZ3 L71er9P1AMZaLFHaZGO9 iCW4vH1nbTdkagcxuUWp dDsgdmVydGljYWwt SElzY119NHXwhXfpIxZB TUFMRTwvdGQ+PHRkIHN0 aTnzNXwyASGlwU2yFBJa C1q5AlVrHvI0ZHsx F6FeZHHjbebxKn55lT3w WuEiLwV2BLhmJ3JzdmI6 YYQvpTQqKHwpEZS0L35v o5T9YYKcPWBuGDK6 eFO7vP3cpCeeiwhvjRMo dDsgdmVydGljYWwtYWxp C797LQPbcFecHhZbMVAp PI2sgJclsOM+PC90 uk62B9QtJlazKiy7AGPm QXC5wZL0fX8rTUZbKZgo j5J0bKO9W2GlnhZdaj7g k7urUQAiUOqtU42w fQFqp3V0SWYadWF6LSHb dBrdEoCrtY87Wke+PGNv dTqcw4JxOtqqj6rjl6hb aMt1DdEmXFUqakTk oDnsKQP2c6DvMm41M52t IHdpZHRoPSIzMCUiIHZh qDljvk5ylH4jTy7+PGNv fMG6eOI7pN5yEyZt YlH0QZtfE557KgXneFPv Jyrpb4zyl9uvrYd5YoZa YQGzjjTvaSiqXRI8k2Eq Mj73W0FzgPhnx7Jk Bva1iv92pBIpf4N9eDF7 U2KuAFJzrwhcdWEhhDyq GU7dOTDdibykJAZcuT6d NIXdL2g8UbIsOmR6 OIjpI6BhgdH5RZAmeKLu WKPluKVAdO3qwmflj4to ecdtXcUsVFKvGEt7FPq2 LWFsaWduOiBsZWZ0 ByD6YKE1tUJaoS7onHbg rfqeyT9qJir+KDi9m1mc gPQtFQ1egIV7BB04XO75 hDXid4A6kQS3Q5Os ZOGonzcqwqjyyTC7MIAd SVSwlF35Zc3gzBzfYk7p ARVeZKR4DQUzrAEfZ0Is oJ7dLbMtDLEzQCBy U7VuzJCnXPipE273PVvn YaR6JGUowgLfF3DvKVPx dIkeWtG5m7D0Hi5WFA36 YB63US51lPEbw1O6 gYG1Z8PyBLFkozybyguf dHQ8PCHkMWDtgH93Sk9o eLydQt8tVXGmVHK4ZEKd jYVeS5CbyQ5mOkFw LNQsTUAnD5CnrASaZOsl F148SLveBmL5OHCknmMz A0TuLYIrnAzkKtU8f6A0 Em3RZu08KZ89ZI57 nBZdo1W4zRH8Y3PrOHIv kgeiyurgdAH2MJYyHDFl aO69Ke8iiXkmTj8fEFEp TCS3ZAAdiODeT2Tr oH5tMjFnKAKfALXjU3Qj oNMsKJrvO650ZHwoHiJ4 BCIajmLzP9SpYEUrzAtv OcM6l0N5Nv4KYQqx rry9W6EyCdtxwIX+PC90 OJZlEL64jSYnsVKbh7zz gCl6NwAuQIJlLPZ8yKhl EEpsu4QyWLZmC43z bGF (more content not included)... Normal [facility] ED Clinical Summaryon 2023 ED Clinical Summary [facility] - Emergency Department [address] [place] [id number] ED Clinical Summary PERSON INFORMATION Name: TOOTIE NICOLE Age: 47 Years Sex: FEMALE : 1975 MRN: Acct#: Visit Reason: Headache; MIGRAINE Arrival: 11/18/2023 21:15:56 Discharge: 11/18/2023 23:15:00 LOS: 000 02:00 Check In: 11/18/2023 21:15:56 Checkout:11/18/2023 23:15:00 Address: [address] [place], [place] [address] [address] PCP: Romeo Chaidez DO PROVIDER INFORMATION Provider Role Assigned Unassigned Patricia Cross PAN WASHER HAND Nurse 11/18/2023 21:27:54 Jeff Ingram MD ED [...] iver verbalizes understanding of instructions given Comment: [facility] ED Note-Nursingon 11-18-2023 ED Note-Nursing Mag infused. IV dc'd Site clear and cathlon intact. Pressure dressing applied. Pt states that her headache is better but is still having problems with her restless legs. pt has to stand and move around while getting discharge instructions. Pt told to follow up with her neurologist or to return if any problem s -05 [facility] ED Note-Nursing Saline lock started in the lt hand. Pt medicated with Toradol, Benadryl, Decadron and Compazine (compazine mixed with NS and pushed very slowly) IVP then would have Magnesium IVPB. Room remains dark and present. massages neck more -05 [facility] ED Note-Nursing Dr Ingram in to inject pt's neck with Lidocaine 1% -05 [facility] ED Note-Nursing Pt arrives with complaints [...] nauseated/dry heaves, not vomiting. positive photophobia T-05 [facility] ED Patient Summaryon 024 ED Patient Summary [facility] - Emergency Department [address] [place] [address] PATIENT DISCHARGE INSTRUCTIONS Patient Information Name: TOOTIE NICOLE Age: 47 Years Date of : 1975 Reason For Visit: Headache; MIGRAINE Arrival Time: 11/18/2023 21:15:56 Primary Care Physician: Romeo Chaidez DO Attending Physician: Jeff Ingram MD Comment: Visit Diagnosis: Diagnoses This Visit Headache (52928254) Migraine syndrome (G43.909) The Pharmacy at [facility] is open Friday through Friday from 9A [...] alcohol and/or drug addiction problems; contact the [facility] 26/05 Crisis Hotline -Text 4HOPE to [phone]. If you received any narcotics, sedation, or [...] and treatment you received today in the [facility] Emergency Department were for an urgent problem and are not intended as complete care. It is important for you to follow up with a doctor, nurse practitioner, or physician?s electrician assistant for ongoing care. If your symptoms [...] so we can reach you if necessary. [facility] Emergency Department has provided you with a complete list of medications post discharge. Please inform your medical videographer/provider of your visit and for further instruction [...] 162.56 cm (more content not included)... Normal [facility] Consultation Noteon 11-04-19 Consultation Note [id number] #[id number] Normal [facility] Auto Diffon 10-01-2023 Basophils/100 WBC (Bld) 1.2 % Normal 0.0-2.0 [facility] Comment on above: Order Comment: Order Added by Discern Expert. Performed By: #### 1 [id number], [id number], 9668869, 0556156, [id number], 8703688, 0546286, 3179233, 7331412 ####[facility] [address] [place] [address] Basophils/Leukocytes Auto (Bld) [Pure # fraction] 0.1 E9/L Normal 0.0-0.2 [facility] Comment on above: Order Comment: Order Added by Discern Expert. Performed By: #### 1 [id number], 6395366, 9414511, 3915273, [id number], 0542338, 3938517, 7899026, 3121200 ####[address] [place] [address] Eosinophils/100 WBC (Bld) 3.9 % Normal 0.0-8.0 [facility] Comment on above: Order Comment: Order Added by Discern Expert. Performed By: #### 1 [id number], 6027583, 7431926, 3080513, 072703375, 3749103, 4143112, 2830831, 0234488 ####[address] [address] Eosinophils/Leukocyte s Auto (Bld) [Pure # fraction] 0.4 E9/L Normal 0.0-0.5 [facility] Comment on above: Order Comment: Order Added by Discern Expert. Performed By: #### 1 [id number], 8826867, 9681947, 9408004, 781236456, 9783021, 8299725, 9877018, 8728459 ####[address] [address] Lymphocytes/100 WBC (Bld) 30.8 % Normal 14.0-50.0 [facility] Comment on above: Order Comment: Order Added by Jeanna Expert. Performed By: #### 1 [id number], 2415212, 9609619, 4082288, 011317713, 7760080, 5137599, 7495663, 3131932 ####[address] [place] [address] Lymphocytes/Leukocyte s Auto (Bld) [Pure # fraction] 3.0 E9/L Normal 1.0-4.0 [facility] Comment on above: Order Comment: Order Added by Jeanna Expert. Performed By: #### 1 [id number], 0589794, 8579759, 1245990, 546095465, 3927195, 7247094, 6722299, 8218586 ####[address] [place] [address] Monocytes/100 WBC (Bld) 5.8 % Normal 4.0-14.0 [facility] Comment on above: Order Comment: Order Added by Discern Expert. Performed By: #### 1 9614602, 1750032, 7510735, 9398383, 849969686, 2491829, 3765288, 5833501, 3896922 ####[address] [place] [address] Monocytes/Leukocytes Auto (Bld) [Pure # fraction] 0.6 E9/L Normal 0.2-1.0 [facility] Comment on above: Order Comment: Order Added by Discern Expert. Performed By: #### 1 5783000, 4547650, 0661477, 5259868, 858194233, 5131467, 9358505, 1385011, 0778935 ####[address] [place] [address] Neutrophils/100 WBC (Bld) 58.3 % Normal 36.0-75.0 [facility] Comment on above: Order Comment: Order Added by Discern Expert. Performed By: #### 1 1330450, 1101015, 9013154, 9306990, 300268552, 9235969, 9276435, 6307035, 0120492 ####[address] [place] [address] Neutrophils/Leukocyte s Auto (Bld) [Pure # fraction] 5.6 E9/L Normal 2.0-7.5 [facility] Comment on above: Order Comment: Order Added by Discern Expert. Performed By: #### 1 2738179, 5413128, 3169552, 4559761, 092668232, 2259979, 9953672, 4450995, 9748277 ####[address] [place] [address] CBC w/ Auto Diffon 3 Erythrocyte distribution width (RBC) [Ratio] 13.4 % Normal 10.9-14.2 [facility] Comment on above: Performed By: #### 1 5343886, 8885989, 5310483, 5946803, 862227846, 3794545, 0209819, 0842385, 3681121 ####[address] [place] [address] Hematocrit (Bld) [Volume fraction] 39.8 % Normal 34.0-46.0 [facility] Comment on above: Performed By: #### 1 [id number], 8402217, 7468376, 6586592, 751855287, 7441223, 9525966, 1957840, 7829575 ####[address] [place] [id number] Hemoglobin (Bld) [Mass/Vol] 13.7 g/dL Normal 12.0-16.0 [facility] Comment on above: Performed By: #### 1 3361279, 3817503, 9597946, 0142779, 330658868, 2816673, 8663631, 6619235, 7807820 ####[address] [address] MCH (RBC) [Entitic mass] 29.8 pg Normal 27.0-34.0 [facility] Comment on above: Performed By: #### 1 1776739, 9186583, 9270931, 8412443, 636136608, 3435110, 9881001, 8859425, 8784102 ####[place] [address] MCHC (RBC) [Mass/Vol] 34.3 g/dL Normal 31.4-36.0 [facility] Comment on above: Performed By: #### 1 7596322, 1885125, 0975552, 3021680, 769036247, 2461222, 9494151, 7722293, 6175266 ####[address] [place] [address] MCV (RBC) [Entitic vol] 86.8 fL Normal 80.0-100.0 [facility] Comment on above: Performed By: #### 1 8762967, 5303205, 0673825, 8180573, 612310314, 7377438, 5322632, 5929615, 8615530 ####[address] [place] [address] Platelet mean volume (Bld) [Entitic vol] 7.7 fL Normal 6.4-10.8 [facility] Comment on above: Performed By: #### 1 6659379, 7263235, 2110298, 6684120, 235288052, 3241562, 1181028, 8997299, 9002369 ####[address] [place] [address] Platelets (Bld) [#/Vol] 418.0 E9/L Normal 150.0-500.0 [facility] Comment on above: Performed By: #### 1 9939987, 9569851, 7101552, 5512062, 964470137, 4169212, 1573643, 3252777, 5599191 ####[address] [address] RBC (Bld) [#/Vol] 4.6 E12/L Normal 4.3-5.9 [facility] Comment on above: Performed By: #### 1 8252745, 1650968, 4154479, 0128942, 066495232, 7165007, 6044564, 7147157, 9958927 ####[address] [place] [address] WBC corrected for nucl RBC Auto (Bld) [#/Vol] 9.6 E9/L Normal 4.0-11.0 [facility] Comment on above: Performed By: #### 1 5338654, 4201435, 3166191, 6333585, 032615118, 1113249, 4306641, 9680743, 0707286 ####[address] [place] [address] CHEMISTRYOrdered By: SYSTEM SYSTEM on 10-01-2023 Cobalamin [...] Treatmenton 09-04 Consent for Treatment [id number] #1.00TIFF Normal [facility] Ferritinon 10-01-2023 Ferritin [Mass/Vol] 43 ng/mL Normal 11-307 [facility] Comment on above: Result Comment: NORM ALS MEN <30 YRS 16-132 ng/mL MEN >30 YRS 8-338 ng/mL WOMEN (PREMEN) 6-104 ng/mL WOMEN (POSTMEN) 12-210 ng/mL Performed By: #### 1 5307039, 2838499, 7002904, 6468768, 065627004, 4968229, 7127968, 6892264, 3161101 ####[facility] [address] [place] [address] Folateon 10-01-2023 Folate [Mass/Vol] 8.5 ng/mL Normal >=6.7 [facility] Comment on above: Performed By: #### 1 4588522, 9856988, 0288694, 8112653, 327763696, 6280892, 7410177, 9705876, 5450772 ####[facility] [address] [place] [address] HEMATOLOGYOrdered By: SYSTEM SYSTEM on 10-01-2023 Basophils/100 [...] Normal 4.0 - 11.0 E9/L [facility] HemeAutoSS ZjwG8jmc 10-01-2023 HbA1c (Bld) [Mass fraction] 5.6 % Normal <=5.9 [facility] Comment on above: Performed By: #### 1 6758890, 1226512, 5504428, 4602289, 990114541, 6987231, 1500862, 1186040, 1260552 ####[facility] [address] [place] [address] Ironon 10-01-2023 Iron [Mass/Vol] 75 microgram/dL Normal 35-153 [facility] Comment on above: Performed By: #### 1 3324421, 9745808, 7803645, 0874754, 353660452, 8233026, 3751982, 8025511, 6839372 ####[facility] [address] [place] [address] TSH With T4fr Reflexon 10-01 TSH Qn 0.96 m[IU]/L Normal 0.34-5.60 [facility] Comment on above: Performed By: #### 1 1953315, 9521417, 9134348, 8913008, 992777587, 3483637, 9935236, 1005984, 3825252 ####[facility] [address] [place] [address] Transferrinon 10-01-2023 Transferrin [Mass/Vol] 310 mg/dL Normal 200-370 [facility] Comment on above: Performed By: #### 1 1845854, 7938276, 3813226, 0425770, 341494367, 8127151, 0708375, 1249779, 6830753 ###Abhi [facility] [address] [place] [address] Vit B12on 10-01-2023 Cobalamin (Vitamin B12) [Mass/Vol] 369 pg/mL Normal 50-1500 [facility] Comment on above: Performed By: #### 1 8749854, 2283675, 5869592, 4917398, 342295700, 6453602, 8894981, 5338432, 3451217 ####Mik [facility] [address] [place] [address] Coding Summaryon 09-20-2023 Coding Summary HTMLBase 64 DspqrgjhCFd2eAx+PGhl YWQ+TY4IMCQyR42luGWb oI5qJ9EEUFlKVpzzSQMH FRwYRmXyygDqKG1ndZEy ZXJu IC8+NT5gGSIoZxncwGIz d9S8eNW5V23obd0zTYeo bOX6HSMkFcYkapbht7fx pXe9AZhjDamrHxEi APOqlH68AWJ7oP80Cy37 jIEyvPBau9wnjPj9ZjGc FOHeRCD6bNafNArkf6Vz MKByB02skXRze5Q1 IGNvbGxhcHNlOyBlbXB0 xU6kBErwenrwy6zffddz Lyb2vt46cTZjb2Q1mNV3 X1CmxzP1YWJyuXOr EmtfyHGRuG6eeuntx5he lxmtWhLiSROxBDp7OIp2 JYZdeJdsUqYnSK53PGJ0 BVZciqHlF8GhSIHo qEkcEzB1s9F6Gm3BD5TE YcaoM4KMXYCOOHxjbVG+ EX57oi22N1EjBuckQmi0 HYThLPE6uKK6wB5r KWOjDQejo7H2bUX0U8Xp tjUqzz0qu6agBPEoESkw J86lpONcu5F9DSVhfKD3 HWMazSnnEyPoiC95 Oyc+ZHJsiCiln0NwKbmx v0xyx5izgAe5KcrdBVHk bwRziXjbNIK8v4LpBv1p AAVcgAO6zFB9sZ6j TiCeJgR0MRojJ799VbSx xPNjMclaO15yC0MpfBN+ UXSsRkh2BXFadItsDT9t P4BsTHRnhfietLHm xAjvFU0hWUDepfwuQONg qA6wDMWzX0y3PtGdTiI7 NOzuB7SuTNSctduqGz39 xE8bOgSjYuN0ZEco K5MgckN2ZPFupUAvZBdn CZU8C89yf9G0MYKkPCLi DEP5kVT9hC3gsJcwccas bGVmdDsgdmVydGlj IXjyMFchO953AOScfRtt PkNvZGluZyBEYXRlOiAg MTEvMTgvMjAyMzwvdGQ+ PRRgAIN5dRifQMXv jDMlUFdkOx1aiLcocHdj ST7vNFDrxmflPLSqvZ9e INRtsUDhaNgpUV7aFAZd qwvlr501EdGjVOI7 SOXfeMFvV8YupA3uXhPd EYEzBXRoC9OewKAqNHye B606ZTfzIdH7YBRdwxYi X6BxSEReeKqcSyE6 m8Q3Qh6Oc6PkbmvgO2Jr oMRfKjIfBdccNHb4F9La PjwvdHI+DP35OLIyMQ55 RBk3QKP7tMdhZPew JEUaT7PrjU0xKzAxFIQy ZGRkOyc+PHRhYmxlIHdp ZHRoPScxMDAlJyBzdHls NY5nSc0zXLSyXQRd kIrjjEEtBqPxa1jxIUNf RLjoKE7tuTdhZ0AtqZV6 VUKre7p0Sy72G01vS8Bo dXA+SPJunIE4pLJ4 uR0rQxHoBcY3MUeeW555 VaLsbGZaAkimh2bgg7nu mMs6ZxF9WAIwwwIioHlb LHO8i2IyXg20J11t IHdpZHRoPSIxNSUiIHZh tWulee5ccD6yWv6+PGNv kTL5gQL2xR8zCvHmQjT7 WMgcN103UzBmvHCp Lbepn5ufi6ztrLy4TzFr NLPgsxOjvXiqKXT3h3By Ds85E7OwkWuef6DcOeh1 pl40sLSsf2L0cTN2 E3XbBCZcnsbjtEVeePli ZE1dYEGgrqbdJECceK6u TESdQ2t1StAyXiQ3TQlr Y3RxktL8JWVotHUl PHBnaIGSnG1kaxnzy5zy unegOmRzTZJqKPj3VJv0 PWWxgYvdKzVhIEP5RyI2 EIX6fOXajY4qgMqp bjwlaL3wEta+NWH3oFHl vGEILX6nZhwwhZL+PHRk OTT7yKhdDZxwZIOteR4t DZLpX3d1EkDkWsA9 PFheE7AddeZ6OKCpeTPx XXBwjLHDaT6qkmxkp5re nvvvWoXjUCGfRBf0MXb5 LWFsaWduOiBsZWZ0 FsJ1ZRX3wWCoeK2kyAqp gdlfbM4yMer+QmlydGgg TQW5YHh4T0UvSlp2LXFy zUceHD4ybISiGJwg Uu1ibOosjAbpPS8xWNDw tmrqq386TxLfm1nfMKLx oROoFQzfFIL2Z83ne0H0 RHMwLNMpYDY9cQC1 cX3gwRleizlheCQyhFxv ddJfwBchMQsyREzdQ324 XZVqtRfbKrYhOCd3U9Im Jhr7ZRRmdHyjTY5o rLEqEMkdWu1exPqvxPeg HO0vXRYyfmhff049YeSm n0ftLCKavHAvZJwbTLA5 C48pz7N0VLKbRXYg SKP1sHV9oO7ijAgqvqfd bGVmdDsgdmVydGljYWwt WTxtN288FLMsvNxsToGp yPv9F4XvEmf4SZWf eWvnVK4prLBtTVlrFs5i lEpwoMaeIU2jNBAuslxu v925NhFnw4toESSeiMWm EIhrCVN6G52tq0Q4 MRSsSRJvGBC6vVO5sT0k bGlnbjogbGVmdDsgdmVy eQztTTyaTXaeS285BJSf cDsnPlBhdGllbnQg CDvaMYb5M5DaJpewvAN+ EO15UGWgUF87rDBayRAg r2ftvQl7NxCvMLVdQRE7 uJyoAGuhv7BqWDNp Y35ntYKkr4E8ISArkXqj uYZoFuMauPV3zD5dUCms erdcs3cjuevkEdfcj0it uv31mL89U52tWZex ZHRoPSIzMCUiIHZhbGln uy7sqX7pKa4+PGNvbCB3 sHZ3vP4qGSXzJuW2OUbo L884YiHmiSCxFcnq a0vco3dgvDq9SfC4VQOq nhJjsKduFFS0f6FkBn29 B45pKJfuJNMnBJEuZNFi FEExeQhcke6ayP5a Ii8+XUElkOB6rUQ8zK1c LmPhQsL2HFqwJ258PoFl lEOkMmuvQ18zX9QkfMZ+ HZJaTdr0ZKUobRsa CL5exYFdQZqrYe5uHYT5 AoGrBoJcBXjtR6MfYBWr weamylhliCU3GLHsBURb tK42Gt0cfAgwTPEj mFVBtZ9eqhqta4crmijr RsNgLRAfJOn7FOs5YUUg cLjnHmHuZIJ1AmP7GGK0 qMKipV9sfTsxplvb mY7oY3FjFDKrzpcpCa68 nS6iIlLxQcS7YVyvVqx+ SeKUCWTvOTOBWn8MVHFO RTwvdGQ+PHRkIHN0 nZooUWwrIAAajK5fXTKp T7e7QhSxVxP0BTmfB0Ps MBJbaursMn68dA3dViUe CpW7DPvnY7ShzoT5 DNCvmXMyEPwkAQR6J80s n9V5LUBsOVIgSSS1qLQ9 vD6thSrffepdsGSamJic dmVydGljYWwtYWxp R955JRLwbGrvJyTlMkPy HzW9MfQ5P9TkJhy2PCFs dCfxUA8fmQMfVOdlSv2w zJnjkRlcBV3tURTk swnaAHHyxA9zQGOrbRGx aPfbSP2cUONifelll927 YtSyLRJ1JPKdqIUmV8Kf yA3yScSuVIEgQXXb Z2UssWOaZVvzC816RBkj MzX1LRXmlnRfS9MhWYDv fLisOdK7b0P3Yx44GCMV ZWFyczwvdGQ+PHRk AZS7zIwhBJgyJGQalS6i ZGVvA7t2FzEkBfR4ZMep R5OkEYTbmjinJc21jZ1g FwHuBcE8QXymG7Fy ncS6RZJetQDtYAqkFWU2 K37dz9T5ASRxMYThOWC9 eKK4tD6yaPkqdhpipGHk dDsgdmVydGljYWwt JZnzK955WKWixIllTbDV TUFMRTwvdGQ+PHRkIHN0 gJbpTWaeEVMepR7fRGWn C4y6FpHmNpO4LTlr T0KeLHQlhivgHk98nF8g PsMmXwN9HYdjZ9OmkiJ0 LQYbeSGjLKcdHCE4N82n y9E3CHHfIMVuKKE2 vNK7dT0tmIdtrnemaFYw dDsgdmVydGljYWwtYWxp V536CMXcxGfdHoZeBIEl QD2fsHhawXV+PC90 dy66Z4VeBvvvOye7GELh QRN9nHP7mD3yTAJdOBye z8Q5bJB1X2JdzeWevs1b d2awSRTiEQpxB87g dQRfw7X0XYHisJJ1GNMd fVeaNlIiiN72Kbc+PGNv wTrcv3FoAdoou9aif2dj gAb7TqNdCQClxtXf rOltTTC8n4JsCd80O87h IHdpZHRoPSIzMCUiIHZh mGwhti0nfX5rCp4+PGNv tQI2aLS8uX3zDmRk HgH2QBjzF720MbUflPPl Pumhh0ugj4vfmJv5HlEq GENhdbVjqSldETK3e7Io Kw60A9QfiSydg1Ab Skh7hk48bZWgn6P5eFE1 E3WvIOZhtzvtcZGemWhu BX4nMXQcrgxcJNWezS5a ZMMnI7v4VeUcXgD8 HDrrJ2WkosF2KVNhbBCe VACidKUEyY1ybcdzt5kq jwmpXcAeUJCiGZr1WTm3 LWFsaWduOiBsZWZ0 YwK0FLI5yZBruP7ptDsw jrhriJ5gUxr+JMw5z8fc bKPgRM3zwXU7PX99OC80 lXLxt5B1sGW2P0Qr VVTcaoxhkqnzhGP7KFSq VCEqgV79Fi3leWngSz0v GHBzBKI2AYEmoDHfN8Ro vW0wNuCiHCCvPFLk T0SikYGdZMubG685FIto JnN8XDTuleUeL2NeZZAj uGvkWjI2u3V9Ue3JXB43 CJ68WD61aLXii6E3 ySY9G0HnZUZgwxugfjqv rDP8PQWwVVQsdW52Ow3c bOrzWr2gGJUmENP0SIBk wFEeH2ZhdC9lCoYc ENOdDZRlF8VxpZOsUShy C715FKupBfN7ATRulrFf A9EtMELtyBbaZoZ1y9H7 Wc6GCf86CF93AL24 fANrr8U4bOD8R5IeOLXy lthtpxkghGW9MYEvKPUi vX02Zu4knBjwCu6rMIGo GFW9YONvpLOaD1Qj lL8eNwGxDZVoZLOnA7Bi iSTsLZlsQ780LAysEaT3 WHIpdxVjX5OmLQKxhEne QbQ4u3W8Gy2BIShr fys8D6PnVhxooTQ+PC90 NJDvZR84kWSgzFYdi0xj qYc3JxItPHXuCWD4tObi NKwvu3MjPPQmP60w bGF (more content not included)... [facility] Consent for Flu Vaccineon Consent for Flu Vaccine [id number]# 1.00TIFF [facility] Family Medicine Office/Clini c Noteon 09-17-2023 Family [...] no si (more content not included)... Normal [facility] Comment on above: Result Comment: Elec tronically Signed By: Romeo Chaidez DO\Date and Time Signed: 09/17/23 17:33 EST ED Clinical Summaryon 2022 ED Clinical Summary [facility] Emergency Department [address] [place] [address] ED Clinical Summary PERSON INFORMATION Name: TOOTIE NICOLE Age: 47 Years Sex: FEMALE : 1975 MRN: Acct#: Visit Reason: Headache - Recurrent; Nausea; Neurologic problem; HEADACHE Arrival: 09/15/2023 21:33:37 Discharge: 09/15/2023 23:42:00 LOS: 000 02:09 Check In: 09/15/2023 21:33:37 Checkout:09/15/2023 23:42:00 Address: [address] [place] [address] PCP: Romeo Chaidez DO PROVIDER INFORMATION Provider [...] Home PATIENT EDUCATION INFORMATION Instructions: Migraine Headache, Kied-ts-Wlyc Follow-Up: With: Address: When: Lisa Martínez [facility] [place] [address] Business (1) Within 3 to 5 days Comments: home continue with Dr Martínez, call her office tomorrow for a recheck apt you are welcomed to return anytime. Sanjay MATT< ER PHYSICIAN< H Adri [facility] DIAGNOSIS: Migraine variant Patient Understands: Yes - Patient/family/careg iver verbalizes understanding of instructions given Comment: [facility] ED Note - Physicianon 2022 ED [...] Family/ Social History Medical history: Resolved Migraines ([id number]): Resolved.. Surgical history: Rhinoplasty ([id number]) on 07/10/2016 at 40 Years. DNS (deviated nasal septum) ([id number]) on 07/10/2016 at 40 Years. Nasal polypectomy ([id number]). Appendectomy ([id number]).. Family history: No family history items have [...] home Impression and Plan Diagnosis Migraine variant (WKQ80-PD G43.809, Discharge, Medical) Plan Condition: Improved. Disposition: Discharged: time 09/15/2023 23:27:00. Patient was given the following educational materials: Migraine Headache, Ptdk-bf-Aboi. Follow up with: ; Lisa Martínez Within 3 to [address] with [address] Martínez, call her office tomorrow for a recheck apt you are welcomed to return anytime. Sanjay MATT< ER PHYSICIAN< Verna Cornelius. [Electronically Signed on: 09/16/2023 02:56 EST] Tru Matt DO [Verified on: 09/16/2023 02:56 EST] Tru Matt DO [facility] ED Patient Summaryon 023 ED Patient Summary [facility] Emergency Department [address] [place] [address] PATIENT DISCHARGE INSTRUCTIONS Patient Information Name: TOOTIE NICOLE Age: 47 Years Date of : 1975 Reason For Visit: Headache - Recurrent; Nausea; Neurologic problem; HEADACHE Arrival Time: 09/15/2023 21:33:37 Primary Care Physician: Romeo Chaidez DO Attending Physician: Tru Matt DO Comment: Visit Diagnosis: Diagnoses This Visit Headache - Recurrent ([id number]) Migraine variant (G43.809) Nausea ([id number]) Neurologic problem ([id number]) The Pharmacy at [facility] is open Friday through Friday from 9A [...] alcohol and/or drug addiction problems; contact the [facility] 26/05 Crisis Hotline -Text 2FENI yu [phone]. If you received any narcotics, sedation, or [...] Address: When: Lisa Martínez [address] [place] [address] Business (1) Within 3 to 5 days Comments: home continue with Dr Martínez, call her office tomorrow for a recheck apt you are welcomed to return anytime. Sanjay MATT< ER PHYSICIAN< H B [facility] Medication Information: The exam and treatment you received today in the [facility] Emergency Department were for an urgent problem and are not intended as complete care. It is important for you to follow up with a doctor, nurse practitioner, or physician?s electrician assistant for ongoing care. If your symptoms [...] so we can reach you if necessary. [facility] Emergency Department has provided you with a complete list of medications post discharge. Please inform your medical videographer/provider of your visit and for further instruction [...] bpm Re (more content not included)... Normal [facility] 03-18-2023 [facility] Office Visit (PLASMN) TOOTIE NICOLE ([id number]) 1975 F Date Time Provider Department 03/18/23 [...] Status:Closed by REMIGIO TRUJILLO on 03/18/23 Normal [facility] CARDIAC YAJAIRA ADMITon 023 CK [Catalytic activity/Vol] 104 U/L Normal 26-192 [facility] Comment on above: Performed By: #### C MELO MORALES #### [facility] [address] [place] [address] Dr. Fabian Rivas CK.MB [Mass/Vol] 0.90 ng/mL Normal <=3.60 [facility] Comment on above: Performed By: #### MELO ZHENG #### [facility] [address] [address] [address] Fabian Rivas HSTROP <4.0 Normal 4.0-51.3 [facility] Comment on above: Result Comment: CUT- OFF POINTS HAVE BEEN ESTABLISHED BASED ON THE FOURTH UNIVERSAL DEFINITIONS OF MYOCARDIAL INFARCTION. THE UPPER REFERENCE LIMIT (URL) OF TROPONIN, DEFINED THE 99TH PERCENTILE OF cTnI DISTRIBUTION IN A REFERENCE POPULATION, HAS BEEN CONFIRMED THE DECISION THRESHOLD FOR MA DIAGNOSIS. Performed By: #### C MELO MORALES #### [facility] [address] [address] [address] Fabian Rivas NORMAN 32 ng/mL Normal 9-82 [facility] Comment on above: Performed By: #### C MADM, BMP #### [facility] [address] [place] [address] Dr. Fabian Rivas CBC AUTO DIFFon 11-24-2022 BASO # 0.1 103/ul Normal 0.0-0.1 [facility] Comment on above: Performed By: #### C BC #### [facility] [address] [place] [address] Dr. Fabian Rivas Basophils/100 WBC (Bld) 0.9 % Normal 0.2-2.0 [facility] Comment on above: Performed By: #### C BC #### [facility] [address] [place] [address] Dr. Fabian Rivas EO # 0.4 103/ul Normal 0.0-0.7 [facility] Comment on above: Performed By: #### C BC #### [facility] [address] [place] [address] Dr. Fabian Rivas Eosinophils/100 WBC (Bld) 3.8 % Normal 0.9-7.0 [facility] Comment on above: Performed By: #### C BC #### [facility] [address] [place] [address] Dr. Fabian Rivas Erythrocyte distribution width (RBC) [Ratio] 13.4 % Normal 11.0-15.0 [facility] Comment on above: Performed By: #### C BC #### [facility] [address] [place] [address] Dr. Fabian Rivas Hematocrit (Bld) [Volume fraction] 36.8 % Normal 36.0-48.0 [facility] Comment on above: Performed By: #### C BC #### [facility] [address] [place] [address] Dr. Fabian Rivas Hemoglobin (Bld) [Mass/Vol] 12.9 g/dL Normal 12.0-16.0 [facility] Comment on above: Performed By: #### C BC #### [facility] [address] [place] [address] Dr. Fabian Rivas IG # 0.02 10e3/ul Normal 0.00-0.03 [facility] Comment on above: Performed By: #### C BC #### [facility] [address] [place] [address] Dr. Fabian Rivas IG % 0.2 % Normal 0.0-0.5 [facility] Comment on above: Performed By: #### C BC #### [facility] [address] [place] [address] Dr. Fabian Rivas LYMPH # 2.7 103/ul Normal 1.2-3.8 [facility] Comment on above: Performed By: #### C BC #### [facility] [address] [place] [address] Dr. Fabian Rivas Lymphocytes/100 WBC (Bld) 27.3 % Normal 20.5-60.0 [facility] Comment on above: Performed By: #### C BC #### [facility] [address] [place] [address] Dr. Fabian Rivas MANUAL DIFF REQ NO Normal [facility] Comment on above: Performed By: #### C BC #### [facility] [address] [place] [address] Dr. Fabian Rivas MCH (RBC) [Entitic mass] 28.5 pg Normal 26.7-34.0 [facility] Comment on above: Performed By: #### C BC #### [facility] [address] [place] [address] Dr. Fabian Rivas MCHC (RBC) [Mass/Vol] 35.1 g/dL Normal 29.9-35.2 [facility] Comment on above: Performed By: #### C BC #### [facility] [address] [place] [address] Dr. Fabian Rivas MCV (RBC) [Entitic vol] 81.4 fL Normal 81.0-99.0 [facility] Comment on above: Performed By: #### C BC #### [facility] [address] [place] [address] Dr. Fabian Rivas MONO # 0.5 103/ul Normal 0.3-0.8 [facility] Comment on above: Performed By: #### C BC #### [facility] [address] [place] [address] Dr. Fabian Rivas Monocytes/100 WBC (Bld) 5.3 % Normal 1.7-12.0 [facility] Comment on above: Performed By: #### C BC #### [facility] [address] [place] [address] Dr. Fabian Rivas NEUT # 6.1 103/ul Normal 1.4-6.5 [facility] Comment on above: Performed By: #### C BC #### [facility] [address] [place] [address] Dr. Fabian Rivas Neutrophils/100 WBC (Bld) 62.5 % Normal 43.0-75.0 [facility] Comment on above: Performed By: #### C BC #### [facility] [address] [place] [address] Dr. Fabian Rivas Platelet mean volume (Bld) [Entitic vol] 9.7 fL Normal 9.5-13.5 [facility] Comment on above: Performed By: #### C BC #### [facility] [address] [place] [address] Dr. Fabian Rivas PLT 347 103/ul Normal 150-450 [facility] Comment on above: Performed By: #### C BC #### [facility] [address] [place] [address] Dr. Fabian Rivas RBC 4.52 106/ul Normal 4.20-5.40 [facility] Comment on above: Performed By: #### C BC #### [facility] [address] [place] [address] Dr. Fabian Rivas WBC 9.7 103/ul Normal 4.0-11.0 [facility] Comment on above: Performed By: #### C BC #### [facility] [address] [place] [address] Dr. Fabian Rivas PROF CHEM 8 (BAS METB)on Anion gap [Moles/Vol] 14.9 mmol/L Normal [facility] Comment on above: Performed By: #### C MADM, BMP #### [facility] [address] [place] [address] Dr. Fabian Rivas Calcium [Mass/Vol] 9.2 mg/dL Normal 8.5-10.1 [facility] Comment on above: Performed By: #### C MADM, BMP #### [facility] [address] [place] [address] Dr. Fabian Rivas Chloride [Moles/Vol] 103 mmol/L Normal 98-107 [facility] Comment on above: Performed By: #### C MADM, BMP #### [facility] [address] [place] [address] Dr. Fabian Rivas CO2 [Moles/Vol] 25.5 mmol/L Normal 21.0-32.0 [facility] Comment on above: Performed By: #### C MADM, BMP #### [facility] [address] [place] [address] Dr. Fabian Rivas Creatinine [Mass/Vol] 0.56 mg/dL Normal 0.55-1.02 [facility] Comment on above: Performed By: #### C STACIM, BMP #### [facility] [address] [place] [address] Dr. Fabian Rivas EGFR-AF BRITISH >60 Normal >=60 [facility] Comment on above: Performed By: #### C STACIM, BMP #### [facility] [address] [place] [address] Dr. Fabian Rivas EGFR-NON AF BRITISH >60 Normal >=60 [facility] Comment on above: Performed By: #### C MADM, BMP #### [facility] [address] [place] [address] Dr. Fabian Rivas Glucose [Mass/Vol] 100 mg/dL Normal 74-106 [facility] Comment on above: Performed By: #### C MADM, BMP #### [facility] [address] [place] [address] Dr. Fabian Rivas Potassium [Moles/Vol] 4.4 mmol/L Normal 3.5-5.1 [facility] Comment on above: Performed By: #### C STACIM, BMP #### [facility] [address] [address] [address] Fabian Rivas Sodium [Moles/Vol] 139 mmol/L Normal 136-145 [facility] Comment on above: Performed By: #### C STACIM, BMP #### [facility] [address] [address] [address] Fabian Rivas Urea nitrogen [Mass/Vol] 11.0 mg/dL Normal 7.0-18.0 [facility] Comment on above: Performed By: #### C STACIM, BMP #### [facility] [address] [place] [address] Dr. Fabian Rivas Urea nitrogen/Creatinine [Mass ratio] 19.6 mg/mg Normal [facility] Comment on above: Performed By: #### C CARMEN, BMP #### [facility] [address] [place] [address] Dr. Fabian Rivas XR CHEST 1 Von 11-24-2022 XR CHEST 1 V EXAM: XR CHEST 1 V INDICATION: CHEST PAIN, UNSPECIFIED. COMPARISON: None. TECHNIQUE: Single frontal view of the chest FINDINGS: Normal cardiomediastinal contours. Clear lungs. No pleural effusion or pneumothorax. No acute osseous abnormality. IMPRESSION: No acute cardiopulmonary process. Electronically authenticated by: ILIANA BERMUDEZ Date: 2022-11-24 15:28 Normal [facility] Albumin [Mass/volume] in Ser um or PlasmaOrdered By: Myron Sullivan on 05-22-2022 Albumin [Mass/Vol] 3.2 g/dL 3.2-5.5 [facility] Automated erythrocytes count in urine sediment (number/area)Ordered By: Myron Sullivan on 05-22-2022 RBC Auto (Urine sed) [#/Area] 3-4 [HPF] 0-4 [facility] Automated leukocytes count i n urine sediment (number/area)Ordered By: Myron Sullivan on 05-22-2022 WBC Auto (Urine sed) [#/Area] 3-4 [HPF] 0-4 [facility] Bilirubin Test strip Ql (U)O rdered By: Myron Sullivan on 05-22-2022 Bilirubin Ql (U) Negative Negative [facility] Blood Cultureon 05-22-2022 Bacteria identified Cx Nom (Bld) NO GROWTH 5 DAYS PERFORMED BY: [facility] [address] [place] [id number] PATHOLOGIST [employer] SCARLETT MARIN M.D. Normal [facility] Comment on above: Performed By: #### L ACTIC, CUBLD #### [facility] [address] Blood hemoglobin measurement (mass/volume)Ordered By: Myron Sullivan on 05-22-2022 Hemoglobin (Bld) [Mass/Vol] 10.2 g/dL 11.8-15.4 [facility] COVID-19 Antigenon 2 COVID-19 Antigen Healthcare Worker?: [...] developed and its performance characteristic determined by [employer] and validated at [facility]. This test has not been FDA cleared [...] for SARS Antigen by [facility] PERFORMED BY: [place] [address] PATHOLOGIST [employer] SCARLETT MARIN M.D. Normal [facility] Comment on above: Performed By: #### C OVID-19 JANINE, SOFIANEG #### [address] COVID-19 SOFIAOrdered By: Alejandro Shaikh on 05-22-2022 SARS-CoV+SARS-CoV-2 (COVID-19) Ag IA.rapid Ql (Resp) Negative Negative [facility] Comment on above: This is a duplicate Janine SARS Antigen (SHAQ) result to be used for statistical tracking purpose only. CT abdomen pelvis w conon CT abdomen pelvis w con [facility] Main [place] [address] [place], [place] [id number] CT Scan Report Signed Patient: Tootie Nicole MR#: [id number] 0 : 1975 Acct:[id number] Age/Sex: 46 / F ADM Date: 05/22/22 Loc: ER [facility]: [facility] Attending Dr: Copies to: Brady [...] Yajaira Goodson M.D.05/22/2022 8:24 AM Dictation Location: [place] [address] Transcribed By: [facility] 05/22/22823 Dictated By: Yajaira Goodson II, MD 05/22/22813 Signed By: 05/22/22823 Normal [facility] Color Auto (U)Ordered By: Elsy Sullivan on 05-22-2022 Color (U) Yellow Yellow [facility] Comprehensive Metabolic Pane zen 05-22-2022 Albumin [Mass/Vol] 3.2 g/dL Normal 3.2-5.5 [facility] Comment on above: Performed By: #### C BCNO, CMP, LIPASE, ADDONUAPLUS ####[place] [id number] [facility] Albumin/Globulin [Mass ratio] 1.0 {ratio} Normal [facility] Comment on above: Performed By: #### C BCNO, CMP, LIPASE, ADDONUAPLUS ####[place] [id number] [facility] ALP [Catalytic activity/Vol] 44 U/L Normal 32-92 [facility] Comment on above: Performed By: #### C BCNO, CMP, LIPASE, ADDONUAPLUS ####[place] [id number] [facility] ALT [Catalytic activity/Vol] 22 U/L Normal 10-60 [facility] Comment on above: Performed By: #### C BCNO, CMP, LIPASE, ADDONUAPLUS ####[place] [id number] [facility] AST [Catalytic activity/Vol] 19 U/L Normal 10-42 [facility] Comment on above: Performed By: #### C BCNO, CMP, LIPASE, ADDONUAPLUS ####[place] [id number] [facility] Bilirubin [Mass/Vol] 0.6 mg/dL Normal 0.3-1.2 [facility] Comment on above: Performed By: #### C BCNO, CMP, LIPASE, ADDONUAPLUS ####[place] [id number] [facility] Calcium [Mass/Vol] 9.2 mg/dL Normal 8.2-10.2 [facility] Comment on above: Performed By: #### C BCNO, CMP, LIPASE, ADDONUAPLUS ####[place] [id number] [facility] Chloride [Moles/Vol] 104 mmol/L Normal 95-114 [facility] Comment on above: Performed By: #### C BCNO, CMP, LIPASE, ADDONUAPLUS ####[place] [address] [place] CO2 [Moles/Vol] 23.0 mmol/L Normal 22.0-30.0 [facility] Comment on above: Performed By: #### C BCNO, CMP, LIPASE, ADDONUAPLUS ####[address] Creatinine [Mass/Vol] 0.56 mg/dL Normal 0.44-1.03 [facility] Comment on above: Performed By: #### C BCNO, CMP, LIPASE, ADDONUAPLUS ####[address] Estimated GFR ( Padmini > 60 [facility] Comment on above: Result Comment: GFR estimated reference range: According to KDOQI guidelines, <60 ml/min/1.73m2 is sufficient to diagnose a patient with chronic kidney disease. Performed By: #### C BCNO, CMP, LIPASE, ADDONUAPLUS ####[address] Estimated GFR (Non- Am > 60 [facility] Comment on above: Performed By: #### C BCNO, CMP, LIPASE, ADDONUAPLUS ####[address] Globulin (S) [Mass/Vol] 3.3 g/dL Normal [facility] Comment on above: Performed By: #### C BCNO, CMP, LIPASE, ADDONUAPLUS ####[address] Glucose [Mass/Vol] 104 mg/dL High 70-100 [facility] Comment on above: Result Comment: [place] om Glucose Reference Range is dependent on time and content of last meal. Glucose of more than 200 mg/dL in a nonstressed, ambulatory subject supports the diagnosis of Diabetes Mellitus. ADA recommended reference range Performed By: #### C BCNO, CMP, LIPASE, ADDONUAPLUS ####[address] Potassium [Moles/Vol] 3.7 mmol/L Normal 3.5-5.1 [facility] Comment on above: Performed By: #### C BCNO, CMP, LIPASE, ADDONUAPLUS ####[place] [id number] [facility] Protein [Mass/Vol] 6.5 g/dL Normal 6.1-7.9 [facility] Comment on above: Performed By: #### C BCNO, CMP, LIPASE, ADDONUAPLUS ####[place] [id number] [facility] Sodium [Moles/Vol] 136 mmol/L Normal 136-146 [facility] Comment on above: Performed By: #### C BCNO, CMP, LIPASE, ADDONUAPLUS ####[address] Urea nitrogen [Mass/Vol] 10 mg/dL Normal 9-23 [facility] Comment on above: Performed By: #### C BCNO, CMP, LIPASE, ADDONUAPLUS ####[address] Creatinine and Glomerular fi ltration rate.predicted panel (S/P/Bld)Ordered By: Myron Sullivan on 05-22-2022 Creatinine [Mass/Vol] 0.56 mg/dL 0.44-1.03 [facility] Dipstick and Microscopicon 0 05-22-2022 Appearance (U) Clear Normal Clear [facility] Comment on above: Order Comment: Name Collection Type:: Collection Method Unknown Performed By: #### C BCNO, CMP, LIPASE, ADDONUAPLUS ####[place] [id number] [facility] Bacteria,Urine None Seen Normal None Seen [facility] Comment on above: Order Comment: Name Collection Type:: Collection Method Unknown Performed By: #### C BCNO, CMP, LIPASE, ADDONUAPLUS ####[place] [id number] [facility] Bilirubin,Urine Negative Normal Negative [facility] Comment on above: Order Comment: Name Collection Type:: Collection Method Unknown Performed By: #### C BCNO, CMP, LIPASE, ADDONUAPLUS ####[place] [address] [place] [address] [facility] Color (U) Yellow Normal Yellow [facility] Comment on above: Order Comment: Name Collection Type:: Collection Method Unknown Performed By: #### C BCNO, CMP, LIPASE, ADDONUAPLUS ####[place] [address] [place] [address] [facility] Glucose Ql (U) Normal Normal Normal [facility] Comment on above: Order Comment: Name Collection Type:: Collection Method Unknown Performed By: #### C BCNO, CMP, LIPASE, ADDONUAPLUS ####[place] [id number] [facility] Hyaline Casts,Urine 0-8 Normal 0-8 [facility] Comment on above: Order Comment: Name Collection Type:: Collection Method Unknown Result Comment: PERF ORMED BY: [facility] [address] [place] [address] PATHOLOGIST [employer] SCARLETT MARIN M.D. Performed By: #### C BCNO, CMP, LIPASE, ADDONUAPLUS ####[place] [id number] [facility] Ketones Ql (U) Negative Normal Negative [facility] Comment on above: Order Comment: Name Collection Type:: Collection Method Unknown Performed By: #### C BCNO, CMP, LIPASE, ADDONUAPLUS ####[place] [id number] [facility] Leukocyte esterase Test strip Ql (U) Negative Normal Negative [facility] Comment on above: Order Comment: Name Collection Type:: Collection Method Unknown Performed By: #### C BCNO, CMP, LIPASE, ADDONUAPLUS ####[place] [id number] [facility] Nitrite,Urine Negative Normal Negative [facility] Comment on above: Order Comment: Name Collection Type:: Collection Method Unknown Performed By: #### C BCNO, CMP, LIPASE, ADDONUAPLUS ####[place] [id number] [facility] Occult Blood,Urine 2+ High Negative [facility] Comment on above: Order Comment: Name Collection Type:: Collection Method Unknown Result Comment: PERF ORMED BY: [facility] [address] [place] [address] PATHOLOGIST [employer] SCARLETT MARIN M.D. Performed By: #### C BCNO, CMP, LIPASE, ADDONUAPLUS ####[address] [address] [facility] pH (U) 5.5 [pH] Normal 5.0-9.0 [facility] Comment on above: Order Comment: Name Collection Type:: Collection Method Unknown Performed By: #### C BCNO, CMP, LIPASE, ADDONUAPLUS ####[address] [address] [facility] Protein,Urine Negative Normal Negative [facility] Comment on above: Order Comment: Name Collection Type:: Collection Method Unknown Performed By: #### C BCNO, CMP, LIPASE, ADDONUAPLUS ####[address] [address] [facility] RBC,Urine 3-4 Normal 0-4 [facility] Comment on above: Order Comment: Name Collection Type:: Collection Method Unknown Performed By: #### C BCNO, CMP, LIPASE, ADDONUAPLUS ####[address] [address] [facility] Specificy [place],Urine 1.016 Normal 1.001-1.030 [facility] Comment on above: Order Comment: Name Collection Type:: Collection Method Unknown Performed By: #### C BCNO, CMP, LIPASE, ADDONUAPLUS ####[address] [address] [facility] Squamous Epithelial Cell,Urine 5-9 High 0-2 [facility] Comment on above: Order Comment: Name Collection Type:: Collection Method Unknown Performed By: #### C BCNO, CMP, LIPASE, ADDONUAPLUS ####[address] [address] [facility] Urobilinogen,Urine Normal Normal Normal [facility] Comment on above: Order Comment: Name Collection Type:: Collection Method Unknown Performed By: #### C BCNO, CMP, LIPASE, ADDONUAPLUS ####[place] [address] [address] WBC,Urine 3-4 Normal 0-4 [facility] Comment on above: Order Comment: Name Collection Type:: Collection Method Unknown Performed By: #### C BCNO, CMP, LIPASE, ADDONUAPLUS ####[address] Erythrocyte distribution wid th Auto (RBC) [Ratio]Ordered By: Myron Sullivan on 05-22-2022 Erythrocyte distribution width (RBC) [Ratio] 12.7 % 11.9-15.3 [facility] Estimated glomerular filtrat ion rate (GFR) non- AmericanOrdered By: Myron Sullivan on 05-22-2022 GFR/1.73 sq M.predicted among non-blacks MDRD (S/P/Bld) [Vol rate/Area] > 60 mL/Min [facility] Globulin Calc (S) [Mass/Vol] Ordered By: Myron Sullivan on 05-22-2022 Globulin (S) [Mass/Vol] 3.3 g/dL [facility] Hematocrit Auto (Bld) [Volum e fraction]Ordered By: Myron Sullivan on 05-22-2022 Hematocrit (Bld) [Volume fraction] 30.1 % 34.0-46.4 [facility] Hemogram CBC Without Diffon 05-22-2022 Erythrocyte distribution width (RBC) [Ratio] 12.7 % Normal 11.9-15.3 [facility] Comment on above: Performed By: #### C BCNO, CMP, LIPASE, ADDONUAPLUS ####[address] Hematocrit (Bld) [Volume fraction] 30.1 % Low 34.0-46.4 [facility] Comment on above: Performed By: #### C BCNO, CMP, LIPASE, ADDONUAPLUS ####[address] Hemoglobin (Bld) [Mass/Vol] 10.2 g/dL Low 11.8-15.4 [facility] Comment on above: Performed By: #### C BCNO, CMP, LIPASE, ADDONUAPLUS ####[address] MCH (RBC) [Entitic mass] 29.7 pg Normal 24.7-34.3 [facility] Comment on above: Performed By: #### C BCNO, CMP, LIPASE, ADDONUAPLUS ####[address] MCV (RBC) [Entitic vol] 87.8 fL Normal 80-100 [facility] Comment on above: Performed By: #### C BCNO, CMP, LIPASE, ADDONUAPLUS ####[address] Mean Corpuscular HGB Conc 33.8 g/dL Normal 32.0-35.0 [facility] Comment on above: Performed By: #### C BCNO, CMP, LIPASE, ADDONUAPLUS ####[address] Platelet mean volume (Bld) [Entitic vol] 6.9 fL Normal 6.3-10.7 [facility] Comment on above: Result Comment: PERF ORMED BY: [facility] [address] [place] [address] PATHOLOGIST [employer] SCARLETT MARIN M.D. Performed By: #### C BCNO, CMP, LIPASE, ADDONUAPLUS ####[address] Platelets (Bld) [#/Vol] 576 10*3/uL High 150-450 [facility] Comment on above: Performed By: #### C BCNO, CMP, LIPASE, ADDONUAPLUS ####[address] RBC (Bld) [#/Vol] 3.43 10*6/uL Low 3.60-5.00 [facility] Comment on above: Performed By: #### C BCNO, CMP, LIPASE, ADDONUAPLUS ####[id number] WBC (Bld) [#/Vol] 14.4 10*3/uL High 3.8-11.6 [facility] Comment on above: Performed By: #### C BCNO, CMP, LIPASE, ADDONUAPLUS ####[place] [address] [address] Ketones Auto test strip (U) [Mass/Vol]Ordered By: Myron Sullivan on 05-22-2022 Ketones (U) [Mass/Vol] Negative Negative [facility] Laboratory - Chemistry and C hemistry - challengeOrdered By: Myron Sullivan on 05-22-2022 Lipase [Catalytic activity/Vol] 23.0 U/L [facility] - UrinalysisOrder ed By: Myron Sullivan on 05-22-2022 Hyaline casts LM Ql (Urine sed) 0-8 [LPF] 0-8 [facility] Lactic Acidon 05-22-2022 Lactate [Moles/Vol] 0.7 mmol/L Normal 0.5-2.2 [facility] Comment on above: Result Comment: PERF ORMED BY: [place] [address] PATHOLOGIST [employer] SCARLETT MARIN M.D. Performed By: #### L ACTIC, CUBLD #### [facility] [address] Lipaseon 05-22-2022 Lipase [Catalytic activity/Vol] 23.0 U/L Normal [facility] Comment on above: Result Comment: PERF ORMED BY: [facility] [address] [place] [address] PATHOLOGIST [employer] SCARLETT MARIN M.D. Performed By: #### C BCNO, CMP, LIPASE, ADDONUAPLUS ####[place] [address] [address] MCH Auto (RBC) [Entitic mass ]Ordered By: Myron Sullivan on 05-22-2022 MCH (RBC) [Entitic mass] 29.7 pg 24.7-34.3 [facility] MCHC Auto (RBC) [Mass/Vol]Or dered By: Myron Sullivan on 05-22-2022 MCHC (RBC) [Mass/Vol] 33.8 g/dL 32.0-35.0 [facility] MCV Auto (RBC) [Entitic vol] Ordered By: Myron Sullivan on 05-22-2022 MCV (RBC) [Entitic vol] 87.8 fL 80-100 [facility] Nitrite Test strip Ql (U)Ord ered By: Myron Sullivan on 05-22-2022 Nitrite Ql (U) Negative Negative [facility] No Panel InformationOrdered By: Myron Sullivan on 05-22-2022 Estimated GFR () > 60 mL/Min [facility] Comment on above: GFR estimated refere nce range: According to KDOQI guidelines, <60 ml/min/1.73m2 is sufficient to diagnose a patient with chronic kidney disease. Pharmacy Creatinine Clearance (Chem N/A [facility] No Panel InformationOrdered By: Brady Shaikh on 05-22-2022 SARS Antigen (LFIA) [facility] Platelet mean volume Auto (B ld) [Entitic vol]Ordered By: Myron Sullivan on 05-22-2022 Platelet mean volume (Bld) [Entitic vol] 6.9 fL 6.3-10.7 [facility] Platelets Auto (Bld) [#/Vol] Ordered By: Myron Sullivan on 05-22-2022 Platelets (Bld) [#/Vol] 576 10*3/uL 150-450 [facility] Protein Auto test strip (U) [Mass/Vol]Ordered By: Myron Sullivan on 05-22-2022 Protein (U) [Mass/Vol] Negative Negative [facility] Protein [Mass/volume] in Ser um or PlasmaOrdered By: Myron Sullivan on 05-22-2022 Protein [Mass/Vol] 6.5 g/dL 6.1-7.9 [facility] RBC Auto (Bld) [#/Vol]Ordere d By: Myron Sullivan on 05-22-2022 RBC (Bld) [#/Vol] 3.43 10*6/uL 3.60-5.00 [facility] Serum or plasma alanine kramer otransferase measurement without P-5'-P (enzymatic activiOrdered By: Myron Sullivan on 05-22-2022 ALT No additional P-5'-P [Catalytic activity/Vol] 22 U/L 10-60 [facility] Serum or plasma albumin/glob ulin mass ratioOrdered By: Myron Sullivan on 05-22-2022 Albumin/Globulin [Mass ratio] 1.0 {ratio} [facility] Serum or plasma alkaline rui sphatase measurement (enzymatic activity/volume)Ordered By: Myron Sullivan on 05-22-2022 ALP [Catalytic activity/Vol] 44 U/L 32-92 [facility] Serum or plasma aspartate am inotransferase measurement (enzymatic activity/volume)Ordered By: Myron Sullivan on 05-22-2022 AST [Catalytic activity/Vol] 19 U/L 10-42 [facility] Serum or plasma calcium pio urement (mass/volume)Ordered By: Myron Sullivan on 05-22-2022 Calcium [Mass/Vol] 9.2 mg/dL 8.2-10.2 [facility] Serum or plasma chloride mary surement (moles/volume)Ordered By: Myron Sullivan on 05-22-2022 Chloride [Moles/Vol] 104 mmol/L 95-114 [facility] Serum or plasma glucose pio urement (mass/volume)Ordered By: Myron Sullivan on 05-22-2022 Glucose [Mass/Vol] 104 mg/dL 70-100 [facility] Comment on above: ADA recommended refe rence range Random Glucose Reference Range is dependent on time and content of last meal. Glucose of more than 200 mg/dL in a nonstressed, ambulatory subject supports the diagnosis of Diabetes Mellitus. Serum or plasma potassium me asurement (moles/volume)Ordered By: Myron Sullivan on 05-22-2022 Potassium [Moles/Vol] 3.7 mmol/L 3.5-5.1 [facility] Serum or plasma sodium measu rement (moles/volume)Ordered By: Myron Sullivan on 05-22-2022 Sodium [Moles/Vol] 136 mmol/L 136-146 [facility] Serum or plasma total biliru bin measurement (mass/volume)Ordered By: Myron Sullivan on 05-22-2022 Bilirubin [Mass/Vol] 0.6 mg/dL 0.3-1.2 [facility] Serum or plasma total carbon dioxide measurement (moles/volume)Ordered By: Myron Sullivan on 05-22-2022 CO2 [Moles/Vol] 23.0 mmol/L 22.0-30.0 [facility] Serum or plasma urea nitroge n measurement (mass/volume)Ordered By: Myron Sullivan on 05-22-2022 Urea nitrogen [Mass/Vol] 10 mg/dL 07-26 [facility] Janine Ag Negativeon 05-22-20 Janine Ag Negative Negative Normal Negative [facility] Comment on above: Result Comment: This is a duplicate Janine SARS Antigen (SHAQ) result to be used for statistical tracking purpose only. PERFORMED BY: [facility] [address] [place] [address] PATHOLOGIST [employer] SCARLETT MARIN M.D. Performed By: #### C OVID-19 JANINE, SOFIANEG ####[facility] [place] [address] [facility] Specific gravity Auto test s trip (U) [Rel density]Ordered By: Myron Sullivan on 05-22-2022 Specific gravity (U) [Rel density] 1.016 1.001-1.030 [facility] Squamous epithelial cells de tection in urine sediment by light microscopyOrdered By: Myron Sullivan on 05-22-2022 Epithelial cells.squamous LM Ql (Urine sed) 5-9 [HPF] 0-2 [facility] Urine bacteria detection by automated methodOrdered By: Myron Sullivan on 05-22-2022 Bacteria Auto Ql (U) None seen None Seen [facility] Urine clarity by refractomet ry automatedOrdered By: Myron Sullivan on 05-22-2022 Clarity Refractometry automated (U) Clear Clear [facility] Urine glucose measurement by automated test strip (mass/volume)Ordered By: Myron Sullivan on 05-22-2022 Glucose Auto test strip (U) [Mass/Vol] Normal mg/dL Normal [facility] Urine hemoglobin detection b y automated test stripOrdered By: Myron Sullivan on 05-22-2022 Hemoglobin Auto test strip Ql (U) 2+ Negative [facility] Urine lactic acid measuremen tOrdered By: Brady Shaikh on 05-22-2022 Lactate (U) [Moles/Vol] 0.7 mmol/L 0.5-2.2 [facility] Urine leukocyte esterase det ection by automated test stripOrdered By: Myron Sullivan on 05-22-2022 Leukocyte esterase Auto test strip Ql (U) Negative Negative [facility] Urobilinogen Auto test strip (U) [Mass/Vol]Ordered By: Myron Sullivan on 05-22-2022 Urobilinogen (U) [Mass/Vol] Normal mg/dL Normal [facility] WBC Auto (Bld) [#/Vol]Ordere d By: Myron Sullivan on 05-22-2022 WBC (Bld) [#/Vol] 14.4 10*3/uL 3.8-11.6 [facility] pH Auto test strip (U)Ordere d By: Myron Sullivan on 05-22-2022 pH (U) 5.5 [pH] 5.0-9.0 [facility] Albumin [Mass/volume] in Ser um or PlasmaOrdered By: PRATEEK HICKS on 05-15-2022 Albumin [Mass/Vol] 3.0 g/dL 3.2-5.5 [facility] Basophils Auto (Bld) [#/Vol] Ordered By: PRATEEK HICKS on 05-15-2022 Basophils (Bld) [#/Vol] 0.1 10*3/uL 0.0-0.2 [facility] Basophils/100 WBC Auto (Bld) Ordered By: PRATEEK HICKS on 05-15-2022 Basophils/100 WBC (Bld) 0.5 % . [facility] Blood hemoglobin measurement (mass/volume)Ordered By: PRATEEK HICKS on 05-15-2022 Hemoglobin (Bld) [Mass/Vol] 9.2 g/dL 11.8-15.4 [facility] Blood leukocytes automated c ount (number/volume)Ordered By: PRATEEK HICKS on 05-15-2022 WBC (Bld) [#/Vol] 11.2 10*3/uL 4.5-11.0 [facility] Complete Blood Count Auto Di ffon 05-15-2022 Basophils (Bld) [#/Vol] 0.1 10*3/uL Normal 0.0-0.2 [facility] Comment on above: Result Comment: PERF ORMED BY: [facility] [address] [place] [address] PATHOLOGIST [employer] SCARLETT MARIN M.D. Performed By: #### C BC, CMP ####[place] [id number] [facility] Basophils/100 WBC (Bld) 0.5 % Normal . [facility] Comment on above: Performed By: #### C BC, CMP ####[place] [id number] [facility] Eosinophils (Bld) [#/Vol] 0.4 10*3/uL Normal 0.0-0.45 [facility] Comment on above: Performed By: #### C BC, CMP ####[place] [id number] [facility] Eosinophils/100 WBC (Bld) 3.7 % Normal . [facility] Comment on above: Performed By: #### C BC, CMP ####[place] [id number] [facility] Erythrocyte distribution width (RBC) [Ratio] 13.2 % Normal 11.9-15.3 [facility] Comment on above: Performed By: #### C BC, CMP ####[place] [id number] [facility] Hematocrit (Bld) [Volume fraction] 27.1 % Low 34.0-46.4 [facility] Comment on above: Performed By: #### C BC, CMP ####[place] [id number] [facility] Hemoglobin (Bld) [Mass/Vol] 9.2 g/dL Low 11.8-15.4 [facility] Comment on above: Performed By: #### C BC, CMP ####[place] [id number] [place] Lymphocytes (Bld) [#/Vol] 2.3 10*3/uL Normal 1.00-4.8 [facility] Comment on above: Performed By: #### C JOSE JUAN, CMP ####[address] Lymphocytes/100 WBC (Bld) 20.4 % Normal . [facility] Comment on above: Performed By: #### C BC, CMP ####[address] MCH (RBC) [Entitic mass] 30.2 pg Normal 24.7-34.3 [facility] Comment on above: Performed By: #### C JOSE JUAN, CMP ####[address] MCV (RBC) [Entitic vol] 89.2 fL Normal 80-100 [facility] Comment on above: Performed By: #### C JOSE JUAN, CMP ####[address] Street Mean Corpuscular HGB Conc 33.9 g/dL Normal 32.0-35.0 [facility] Comment on above: Performed By: #### C JOSE JUAN, CMP ####[address] Monocytes (Bld) [#/Vol] 0.7 10*3/uL Normal 0.0-0.8 [facility] Comment on above: Performed By: #### C JOSE JUAN, CMP ####[address] Monocytes/100 WBC (Bld) 6.2 % Normal . [facility] Comment on above: Performed By: #### C BC, CMP ####[address] Neutrophils (Bld) [#/Vol] 7.7 10*3/uL Normal 1.8-7.7 [facility] Comment on above: Performed By: #### C BC, CMP ####[address] [address] [facility] Neutrophils/100 WBC (Bld) 69.2 % Normal . [facility] Comment on above: Performed By: #### C JOSE JUAN, CMP ####[place] [id number] [facility] Nucleated RBC/100 WBC (Bld) [Ratio] 0.0 % Normal 0-0.5 [facility] Comment on above: Performed By: #### C JOSE JUAN, CMP ####[place] [id number] [facility] Platelet mean volume (Bld) [Entitic vol] 7.2 fL Normal 6.3-10.7 [facility] Comment on above: Performed By: #### C JOSE JUAN, CMP ####[place] [id number] [facility] Platelets (Bld) [#/Vol] 371 10*3/uL Normal 150-450 [facility] Comment on above: Performed By: #### C JOSE JUAN, CMP ####[address] RBC (Bld) [#/Vol] 3.04 10*6/uL Low 3.60-5.00 [facility] Comment on above: Performed By: #### C JOSE JUAN, CMP ####[place] [id number] [facility] WBC (Bld) [#/Vol] 11.2 10*3/uL High 4.5-11.0 [facility] Comment on above: Performed By: #### C BC, CMP ####[place] [id number] [facility] Comprehensive Metabolic Pane zen 05-15-2022 Albumin [Mass/Vol] 3.0 g/dL Low 3.2-5.5 [facility] Comment on above: Performed By: #### C BC, CMP ####[place] [id number] [facility] Albumin/Globulin [Mass ratio] 1.1 {ratio} Normal [facility] Comment on above: Performed By: #### C BC, CMP ####[facility] [place] [address] [facility] ALP [Catalytic activity/Vol] 30 U/L Low 32-92 [facility] Comment on above: Performed By: #### C BC, CMP ####[facility] [place] [address] [facility] ALT [Catalytic activity/Vol] 16 U/L Normal 10-60 [facility] Comment on above: Performed By: #### C BC, CMP ####[place] [address] [place] [address] [facility] AST [Catalytic activity/Vol] 17 U/L Normal 10-42 [facility] Comment on above: Performed By: #### C BC, CMP ####[address] [address] [facility] Bilirubin [Mass/Vol] 0.7 mg/dL Normal 0.3-1.2 [facility] Comment on above: Performed By: #### C BC, CMP ####[address] [address] [facility] Calcium [Mass/Vol] 8.5 mg/dL Normal 8.2-10.2 [facility] Comment on above: Performed By: #### C BC, CMP ####[address] [address] [facility] Chloride [Moles/Vol] 105 mmol/L Normal 95-114 [facility] Comment on above: Performed By: #### C BC, CMP ####[address] [address] [facility] CO2 [Moles/Vol] 25.8 mmol/L Normal 22.0-30.0 [facility] Comment on above: Performed By: #### C BC, CMP ####[address] [address] [facility] Creatinine [Mass/Vol] 0.46 mg/dL Normal 0.44-1.03 [facility] Comment on above: Performed By: #### C BC, CMP ####[address] [address] [facility] Creatinine Clr Calc Pharmacy 159.66 [facility] Comment on above: Result Comment: PERF ORMED BY: [facility] [address] [place] [address] PATHOLOGIST [employer] SCARLETT MARIN M.D. Performed By: #### C BC, CMP ####[place] [id number] [facility] Estimated GFR ( Padmini > 60 [facility] Comment on above: Result Comment: GFR estimated reference range: According to KDOQI guidelines, <60 ml/min/1.73m2 is sufficient to diagnose a patient with chronic kidney disease. Performed By: #### C BC, CMP ####[address] Estimated GFR (Non- Am > 60 [facility] Comment on above: Performed By: #### C BC, CMP ####[address] Globulin (S) [Mass/Vol] 2.7 g/dL [facility] Comment on above: Performed By: #### C BC, CMP ####[place] [id number] [facility] Glucose [Mass/Vol] 91 mg/dL Normal 70-100 [facility] Comment on above: Result Comment: [place] Glucose Reference Range is dependent on time and content of last meal. Glucose of more than 200 mg/dL in a nonstressed, ambulatory subject supports the diagnosis of Diabetes Mellitus. ADA recommended reference range Performed By: #### C BC, CMP ####[place] [id number] [facility] Potassium [Moles/Vol] 3.4 mmol/L Low 3.5-5.1 [facility] Comment on above: Performed By: #### C BC, CMP ####[place] [id number] [facility] Protein [Mass/Vol] 5.7 g/dL Low 6.1-7.9 [facility] Comment on above: Performed By: #### C BC, CMP ####[facility] [id number] [place] [address] [facility] Sodium [Moles/Vol] 137 mmol/L Normal 136-146 [facility] Comment on above: Performed By: #### C BC, CMP ####[facility] [id number] [place] [address] [facility] Urea nitrogen [Mass/Vol] 6 mg/dL Low 9-23 [facility] Comment on above: Performed By: #### C BC, CMP ####[facility] [id number] [place] [address] [facility] Creatinine and Glomerular fi ltration rate.predicted panel (S/P/Bld)Ordered By: PRATEEK HICKS on 05-15-2022 Creatinine [Mass/Vol] 0.46 mg/dL 0.44-1.03 [facility] Eosinophils Auto (Bld) [#/Vo l]Ordered By: PRATEEK HICKS on 05-15-2022 Eosinophils (Bld) [#/Vol] 0.4 10*3/uL 0.0-0.45 [facility] Eosinophils/100 WBC Auto (Bl d)Ordered By: PRATEEK HICKS on 05-15-2022 Eosinophils/100 WBC (Bld) 3.7 % . [facility] Erythrocyte distribution wid th Auto (RBC) [Ratio]Ordered By: PRATEEK HICKS on 05-15-2022 Erythrocyte distribution width (RBC) [Ratio] 13.2 % 11.9-15.3 [facility] Estimated glomerular filtrat ion rate (GFR) non- AmericanOrdered By: PRATEEK HICKS on 05-15-2022 GFR/1.73 sq M.predicted among non-blacks MDRD (S/P/Bld) [Vol rate/Area] > 60 mL/Min [facility] Globulin Calc (S) [Mass/Vol] Ordered By: PRATEEK HICKS on 05-15-2022 Globulin (S) [Mass/Vol] 2.7 g/dL [facility] Hematocrit Auto (Bld) [Volum e fraction]Ordered By: PRATEEK HICKS on 05-15-2022 Hematocrit (Bld) [Volume fraction] 27.1 % 34.0-46.4 [facility] Laboratory - Hematology and Cell countsOrdered By: PRATEEK HICKS on 05-15-2022 Nucleated RBC/100 WBC (Bld) [Ratio] 0.0 % 0-0.5 [facility] Lymphocytes Auto (Bld) [#/Vo l]Ordered By: PRATEEK HICKS on 05-15-2022 Lymphocytes (Bld) [#/Vol] 2.3 10*3/uL 1.00-4.8 [facility] Lymphocytes/100 WBC Auto (Bl d)Ordered By: PRATEEK HICKS on 05-15-2022 Lymphocytes/100 WBC (Bld) 20.4 % . [facility] MCH Auto (RBC) [Entitic mass ]Ordered By: PRATEEK HICKS on 05-15-2022 MCH (RBC) [Entitic mass] 30.2 pg 24.7-34.3 [facility] MCHC Auto (RBC) [Mass/Vol]Or dered By: PRATEEK HICKS on 05-15-2022 MCHC (RBC) [Mass/Vol] 33.9 g/dL 32.0-35.0 [facility] MCV Auto (RBC) [Entitic vol] Ordered By: PRATEEK HICKS on 05-15-2022 MCV (RBC) [Entitic vol] 89.2 fL 80-100 [facility] Monocytes Auto (Bld) [#/Vol] Ordered By: PRATEEK HICKS on 05-15-2022 Monocytes (Bld) [#/Vol] 0.7 10*3/uL 0.0-0.8 [facility] Monocytes/100 WBC Auto (Bld) Ordered By: PRATEEK HICKS on 05-15-2022 Monocytes/100 WBC (Bld) 6.2 % . [facility] Neutrophils Auto (Bld) [#/Vo l]Ordered By: PRATEEK HICKS on 05-15-2022 Neutrophils (Bld) [#/Vol] 7.7 10*3/uL 1.8-7.7 [facility] Neutrophils/100 WBC Auto (Bl d)Ordered By: PRATEEK HICKS on 05-15-2022 Neutrophils/100 WBC (Bld) 69.2 % . [facility] No Panel InformationOrdered By: PRATEEK HICKS on 05-15-2022 Estimated GFR () > 60 mL/Min [facility] Comment on above: GFR estimated refere nce range: According to KDOQI guidelines, <60 ml/min/1.73m2 is sufficient to diagnose a patient with chronic kidney disease. Pharmacy Creatinine Clearance (Chem 159.66 [facility] Platelet mean volume Auto (B ld) [Entitic vol]Ordered By: PRATEEK HICKS on 05-15-2022 Platelet mean volume (Bld) [Entitic vol] 7.2 fL 6.3-10.7 [facility] Platelets Auto (Bld) [#/Vol] Ordered By: PRATEEK HICKS on 05-15-2022 Platelets (Bld) [#/Vol] 371 10*3/uL 150-450 [facility] Protein [Mass/volume] in Ser um or PlasmaOrdered By: PRATEEK HICKS on 05-15-2022 Protein [Mass/Vol] 5.7 g/dL 6.1-7.9 [facility] RBC Auto (Bld) [#/Vol]Ordere d By: PRATEEK HICKS on 05-15-2022 RBC (Bld) [#/Vol] 3.04 10*6/uL 3.60-5.00 [facility] Serum or plasma alanine kramer otransferase measurement without P-5'-P (enzymatic activiOrdered By: PRATEEK HICKS on 05-15-2022 ALT No additional P-5'-P [Catalytic activity/Vol] 16 U/L 10-60 [facility] Serum or plasma albumin/glob ulin mass ratioOrdered By: PRATEEK HICKS on 05-15-2022 Albumin/Globulin [Mass ratio] 1.1 {ratio} [facility] Serum or plasma alkaline rui sphatase measurement (enzymatic activity/volume)Ordered By: PRAETEK HICKS on 05-15-2022 ALP [Catalytic activity/Vol] 30 U/L 32-92 [facility] Serum or plasma aspartate am inotransferase measurement (enzymatic activity/volume)Ordered By: PRATEEK HICKS on 05-15-2022 AST [Catalytic activity/Vol] 17 U/L 10-42 [facility] Serum or plasma calcium pio urement (mass/volume)Ordered By: PRATEEK HICKS on 05-15-2022 Calcium [Mass/Vol] 8.5 mg/dL 8.2-10.2 [facility] Serum or plasma chloride mary surement (moles/volume)Ordered By: PRATEEK HICKS on 05-15-2022 Chloride [Moles/Vol] 105 mmol/L 95-114 [facility] Serum or plasma glucose pio urement (mass/volume)Ordered By: PRATEEK HICKS on 05-15-2022 Glucose [Mass/Vol] 91 mg/dL 70-100 [facility] Comment on above: ADA recommended refe rence range Random Glucose Reference Range is dependent on time and content of last meal. Glucose of more than 200 mg/dL in a nonstressed, ambulatory subject supports the diagnosis of Diabetes Mellitus. Serum or plasma potassium me asurement (moles/volume)Ordered By: PRATEEK HICKS on 05-15-2022 Potassium [Moles/Vol] 3.4 mmol/L 3.5-5.1 [facility] Serum or plasma sodium measu rement (moles/volume)Ordered By: PRATEEK HICKS on 05-15-2022 Sodium [Moles/Vol] 137 mmol/L 136-146 [facility] Serum or plasma total biliru bin measurement (mass/volume)Ordered By: PRATEEK HICKS on 05-15-2022 Bilirubin [Mass/Vol] 0.7 mg/dL 0.3-1.2 [facility] Serum or plasma total carbon dioxide measurement (moles/volume)Ordered By: PRATEEK HICKS on 05-15-2022 CO2 [Moles/Vol] 25.8 mmol/L 22.0-30.0 [facility] Serum or plasma urea nitroge n measurement (mass/volume)Ordered By: PRATEEK HICKS on 05-15-2022 Urea nitrogen [Mass/Vol] 6 mg/dL 9- [facility] XR acute abdomen serieson XR acute abdomen series [facility] Main [address] [address] XRay Report Signed Patient: Tootie Nicole MR#: [id number] 0 : 1975 Acct:[id number] Age/Sex: 46 / F ADM Date: 05/13/22 Loc: Room: [address] [place] [address] Type: ADM IN Attending Dr: Prateek Hicks [...] Yajaira Goodson M.D.05/15/2022 8:27 AM Dictation Location: [place] [address] Transcribed By: [facility] 05/15/22826 Dictated By: Yajaira Goodson II, MD 05/15/22821 Signed By: 05/15/22826 Normal [facility] Complete Blood Count Auto Di ffon 05-14-2022 Basophils (Bld) [#/Vol] 0.0 10*3/uL Normal 0.0-0.2 [facility] Comment on above: Result Comment: PERF ORMED BY: [facility] [address] [place] [address] PATHOLOGIST [employer] SCARLETT MARIN M.D. Performed By: #### C BC ####[place] [address] [place] [id number] [place] Basophils/100 WBC (Bld) 0.3 % Normal . [facility] Comment on above: Performed By: #### C BC ####[facility] [place] [address] [facility] Eosinophils (Bld) [#/Vol] 0.0 10*3/uL Normal 0.0-0.45 [facility] Comment on above: Performed By: #### C BC ####[address] Eosinophils/100 WBC (Bld) 0.3 % Normal . [facility] Comment on above: Performed By: #### C BC ####[address] Erythrocyte distribution width (RBC) [Ratio] 12.9 % Normal 11.9-15.3 [facility] Comment on above: Performed By: #### C BC ####[address] Hematocrit (Bld) [Volume fraction] 30.0 % Low 34.0-46.4 [facility] Comment on above: Performed By: #### C BC ####[address] Hemoglobin (Bld) [Mass/Vol] 9.8 g/dL Low 11.8-15.4 [facility] Comment on above: Performed By: #### C BC ####[address] Lymphocytes (Bld) [#/Vol] 1.9 10*3/uL Normal 1.00-4.8 [facility] Comment on above: Performed By: #### C BC ####[address] Lymphocytes/100 WBC (Bld) 13.6 % Normal . [facility] Comment on above: Performed By: #### C BC ####[place] [id number] [facility] MCH (RBC) [Entitic mass] 29.3 pg Normal 24.7-34.3 [facility] Comment on above: Performed By: #### C BC ####[place] [id number] [facility] MCV (RBC) [Entitic vol] 89.3 fL Normal 80-100 [facility] Comment on above: Performed By: #### C BC ####[place] [address] [place] [address] [facility] Mean Corpuscular HGB Conc 32.8 g/dL Normal 32.0-35.0 [facility] Comment on above: Performed By: #### C BC ####[address] [address] [facility] Monocytes (Bld) [#/Vol] 0.9 10*3/uL High 0.0-0.8 [facility] Comment on above: Performed By: #### C BC ####[address] [address] [facility] Monocytes/100 WBC (Bld) 6.3 % Normal . [facility] Comment on above: Performed By: #### C BC ####[address] [address] [facility] Neutrophils (Bld) [#/Vol] 11.2 10*3/uL High 1.8-7.7 [facility] Comment on above: Performed By: #### C BC ####[address] [address] [facility] Neutrophils/100 WBC (Bld) 79.5 % Normal . [facility] Comment on above: Performed By: #### C BC ####[address] [address] [facility] Nucleated RBC/100 WBC (Bld) [Ratio] 0.1 % Normal 0-0.5 [facility] Comment on above: Performed By: #### C BC ####[address] [address] [facility] Platelet mean volume (Bld) [Entitic vol] 7.5 fL Normal 6.3-10.7 [facility] Comment on above: Performed By: #### C BC ####[address] [address] [facility] Platelets (Bld) [#/Vol] 366 10*3/uL Normal 150-450 [facility] Comment on above: Performed By: #### C BC ####[place] [address] [place] [id number] [facility] RBC (Bld) [#/Vol] 3.36 10*6/uL Low 3.60-5.00 [facility] Comment on above: Performed By: #### C BC ####[place] [address] [place] [id number] [facility] WBC (Bld) [#/Vol] 14.1 10*3/uL High 4.5-11.0 [facility] Comment on above: Performed By: #### C BC ####[place] [address] HCG ( test) IA.jenny d Ql (U)Ordered By: VARUN ZABALA on 05-13-2022 HCG ( test) Ql (U) Negative [facility] HCG,Urineon 05-13-2022 Beta HCG ( test) Ql (U) Negative Normal [facility] Comment on above: Result Comment: PERF ORMED BY: [place] [address] PATHOLOGIST [employer] SCARLETT MARIN M.D. Performed By: #### U HCG #### [address] Zen 05-13-2022 L Specimen: [id number] Received: 05/13/22 Status: TIA Ricketts Num: [id number] Spec Type: Surgical Subm Dr: PRATEEK HICKS MD Tissues: A Uterus w/ or w/o tubes ovaries except neoplastic or prolap (CERVIX, ISABEL TU Procedures: HE Stain/7, Gross/Micro L5 Patient Age/Sex Location Account Attending Physician Tootie Nicole 46/F 3S [id number] PRATEEK HICKS MD SPEC NUM: [id number] RECD: 05/13/22 STATUS: TIA RICKETTS NUM: [id number] ANGELES: 05/13/22- [facility] DR: PRATEEK HICKS MD ENTERED: 05/13/22 [facility]: BAKARI TYPE: Surgical DEPT: S ORDERED: [...] has a rubbery, ann-peacock, focally hemorrhagic Specimen: [id number] Received: 05/13/22 Status: TIA Ricketts Num: [id number] Spec Type: Surgical Subm Dr: PRATEEK HICKS MD Tissues: A Uterus w/ or w/o tubes ovaries except neoplastic or prolap (CERVIX, ISABEL TU Procedures: HE Stain/7, Gross/Micro L5 Patient: Tootie Nicole [id number] (Continued) Specimen: [id number] Received: 05/13/22 (Continued) Gross Description (Continued) Signed (signature on file) Adry Vieyra MD 05/14/22 1528 Specimen: [id number] Received: 05/13/22 Status: TIA Ricketts Num: [id number] Spec Type: Surgical Subm Dr: PRATEEK HICKS MD Tissues: A Uterus w/ or w/o tubes ovaries except neoplastic or prolap (CERVIX, ISABEL TU Procedures: NERI Stain/7, Gross/Micro L5 Patient: Tootie Nicole [id number] (Continued) Specimen: [id number] Received: 05/13/22-1058 (Continued) Gross Description (Continued) cut surface. The [...] support the above pathologic diagnosis. CPT Codes 89579 --------- (more content not included)... Normal [facility] [facility] 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 This test has not been FDA cleared [...] is terminated or revoked sooner. PERFORMED BY: [address] [place] [id number] PATHOLOGIST [employer] SCARLETT MARIN M.D. Performed By: #### C OVID [address] [facility] #### [address] COVID-19 Positive/NegativeOr dered By: Gaurav Marr on 05-09-2022 SARS-CoV-2 (COVID-19) N gene KATE+probe Ql (Resp) Negative Negative [facility] Comment on above: Testing for SARS-CoV -2 by RT-PCR This test was developed and its performance characteristics determined by [employer] ([employer]) and validated at the [facility]. This test has not been FDA cleared [...] 04-04 Calcium [Mass/Vol] 9.4 mg/dL Normal 8.2-10.2 [facility] Comment on above: Result Comment: PERF ORMED BY: [facility] [address] [place] [address] PATHOLOGIST [employer] SCARLETT MARIN M.D. Performed By: #### C BC, [facility] #### [facility] [address] Chloride [Moles/Vol] 101 mmol/L Normal 95-114 [facility] Comment on above: Performed By: #### C BC, BMP #### [facility] [address] CO2 [Moles/Vol] 25.4 mmol/L Normal 22.0-30.0 [facility] Comment on above: Performed By: #### C BC, BMP #### [facility] [address] Creatinine [Mass/Vol] 0.57 mg/dL Normal 0.44-1.03 [facility] Comment on above: Performed By: #### C BC, BMP #### [address] Estimated GFR ( Padmini > 60 [facility] Comment on above: Result Comment: GFR estimated reference range: According to KDOQI guidelines, <60 ml/min/1.73m2 is sufficient to diagnose a patient with chronic kidney disease. Performed By: #### C BC, BMP #### [address] Estimated GFR (Non- Am > 60 [facility] Comment on above: Performed By: #### C BC, BMP #### [address] Glucose [Mass/Vol] 89 mg/dL Normal 70-100 [facility] Comment on above: Result Comment: [place] Glucose Reference Range is dependent on time and content of last meal. Glucose of more than 200 mg/dL in a nonstressed, ambulatory subject supports the diagnosis of Diabetes Mellitus. ADA recommended reference range Performed By: #### C BC, BMP #### [facility] [address] [place] [address] [place] Potassium [Moles/Vol] 4.2 mmol/L Normal 3.5-5.1 [facility] Comment on above: Performed By: #### C BC, BMP #### [place] [address] [place] Sodium [Moles/Vol] 135 mmol/L Low 136-146 [facility] Comment on above: Performed By: #### C JOSE JUAN, BMP #### [facility] [address] [place] [address] Urea nitrogen [Mass/Vol] 9 mg/dL Normal 9-23 [facility] Comment on above: Performed By: #### C JOSE JUAN, BMP #### [facility] [address] Basophils Auto (Bld) [#/Vol] Ordered By: PRATEEK HICKS on 04-29-2022 Basophils (Bld) [#/Vol] 0.1 10*3/uL 0.0-0.2 [facility] Basophils/100 WBC Auto (Bld) Ordered By: PRATEEK HICKS on 04-29-2022 Basophils/100 WBC (Bld) 0.8 % . [facility] Blood hemoglobin measurement (mass/volume)Ordered By: PRATEEK HICKS on 04-29-2022 Hemoglobin (Bld) [Mass/Vol] 13.2 g/dL 11.8-15.4 [facility] Blood leukocytes automated c ount (number/volume)Ordered By: PRATEEK HICKS on 04-29-2022 WBC (Bld) [#/Vol] 8.9 10*3/uL 4.5-11.0 [facility] Complete Blood Count Auto Di ffon 04-29-2022 Basophils (Bld) [#/Vol] 0.1 10*3/uL Normal 0.0-0.2 [facility] Comment on above: Result Comment: PERF ORMED BY: [place] [address] PATHOLOGIST [employer] SCARLETT MARIN M.D. Performed By: #### C JOSE JUAN, BMP #### [address] Basophils/100 WBC (Bld) 0.8 % Normal . [facility] Comment on above: Performed By: #### C JOSE JUAN, BMP #### [address] Eosinophils (Bld) [#/Vol] 0.3 10*3/uL Normal 0.0-0.45 [facility] Comment on above: Performed By: #### C BC, BMP #### [address] Eosinophils/100 WBC (Bld) 3.3 % Normal . [facility] Comment on above: Performed By: #### C BC, BMP #### [address] Erythrocyte distribution width (RBC) [Ratio] 13.5 % Normal 11.9-15.3 [facility] Comment on above: Performed By: #### C BC, BMP #### [address] Hematocrit (Bld) [Volume fraction] 38.9 % Normal 34.0-46.4 [facility] Comment on above: Performed By: #### C BC, BMP #### [address] Hemoglobin (Bld) [Mass/Vol] 13.2 g/dL Normal 11.8-15.4 [facility] Comment on above: Performed By: #### C BC, BMP #### [address] Lymphocytes (Bld) [#/Vol] 2.0 10*3/uL Normal 1.00-4.8 [facility] Comment on above: Performed By: #### C BC, BMP #### [address] Lymphocytes/100 WBC (Bld) 22.7 % Normal . [facility] Comment on above: Performed By: #### C BC, BMP #### [address] MCH (RBC) [Entitic mass] 29.6 pg Normal 24.7-34.3 [facility] Comment on above: Performed By: #### C BC, BMP #### [address] MCV (RBC) [Entitic vol] 87.7 fL Normal 80-100 [facility] Comment on above: Performed By: #### C BC, BMP #### [facility] [address] Mean Corpuscular HGB Conc 33.8 g/dL Normal 32.0-35.0 [facility] Comment on above: Performed By: #### C BC, BMP #### [facility] [address] Monocytes (Bld) [#/Vol] 0.5 10*3/uL Normal 0.0-0.8 [facility] Comment on above: Performed By: #### C BC, BMP #### [address] Monocytes/100 WBC (Bld) 5.4 % Normal . [facility] Comment on above: Performed By: #### C BC, BMP #### [address] Neutrophils (Bld) [#/Vol] 6.1 10*3/uL Normal 1.8-7.7 [facility] Comment on above: Performed By: #### C BC, BMP #### [address] Neutrophils/100 WBC (Bld) 67.8 % Normal . [facility] Comment on above: Performed By: #### C BC, BMP #### [address] Nucleated RBC/100 WBC (Bld) [Ratio] 0.1 % Normal 0-0.5 [facility] Comment on above: Performed By: #### C BC, BMP #### [address] Platelet mean volume (Bld) [Entitic vol] 7.6 fL Normal 6.3-10.7 [facility] Comment on above: Performed By: #### C BC, BMP #### [address] Platelets (Bld) [#/Vol] 353 10*3/uL Normal 150-450 [facility] Comment on above: Performed By: #### C BC, BMP #### [facility] [address] RBC (Bld) [#/Vol] 4.44 10*6/uL Normal 3.60-5.00 [facility] Comment on above: Performed By: #### C BC, BMP #### [facility] [address] WBC (Bld) [#/Vol] 8.9 10*3/uL Normal 4.5-11.0 [facility] Comment on above: Performed By: #### C JOSE JUAN, BMP #### [facility] [address] Creatinine and Glomerular fi ltration rate.predicted panel (S/P/Bld)Ordered By: PRATEEK HICKS on 04-29-2022 Creatinine [Mass/Vol] 0.57 mg/dL 0.44-1.03 [facility] ECG 12 lead ECGon 04-29-2022 ECG 12 lead ECG [facility] Main [place] [address] [place] [address] Electrocardiograph Report Signed Patient: Tootie Nicole MR#: [id number] 0 : 1975 Acct:[id number] Age/Sex: 46 / F ADM Date: 04/29/22 Loc: Room: Type: [facility] Attending Dr: Prateek Hicks MD Ordering Provider: [...] By Romeo Taylor DO 04/29 180 Normal [facility] Eosinophils Auto (Bld) [#/Vo l]Ordered By: PRATEEK HICKS on 04-29-2022 Eosinophils (Bld) [#/Vol] 0.3 10*3/uL 0.0-0.45 [facility] Eosinophils/100 WBC Auto (Bl d)Ordered By: PRATEEK HICKS on 04-29-2022 Eosinophils/100 WBC (Bld) 3.3 % . [facility] Erythrocyte distribution wid th Auto (RBC) [Ratio]Ordered By: PRATEEK HICKS on 04-29-2022 Erythrocyte distribution width (RBC) [Ratio] 13.5 % 11.9-15.3 [facility] Estimated glomerular filtrat ion rate (GFR) non- AmericanOrdered By: PRATEEK HICKS on 04-29-2022 GFR/1.73 sq M.predicted among non-blacks MDRD (S/P/Bld) [Vol rate/Area] > 60 mL/Min [facility] Hematocrit Auto (Bld) [Volum e fraction]Ordered By: PRATEEK HICKS on 04-29-2022 Hematocrit (Bld) [Volume fraction] 38.9 % 34.0-46.4 [facility] Laboratory - Hematology and Cell countsOrdered By: PRATEEK HICKS on 04-29-2022 Nucleated RBC/100 WBC (Bld) [Ratio] 0.1 % 0-0.5 [facility] Lymphocytes Auto (Bld) [#/Vo l]Ordered By: PRATEEK HICKS on 04-29-2022 Lymphocytes (Bld) [#/Vol] 2.0 10*3/uL 1.00-4.8 [facility] Lymphocytes/100 WBC Auto (Bl d)Ordered By: PRATEEK HICKS on 04-29-2022 Lymphocytes/100 WBC (Bld) 22.7 % . [facility] MCH Auto (RBC) [Entitic mass ]Ordered By: PRATEEK HICKS on 04-29-2022 MCH (RBC) [Entitic mass] 29.6 pg 24.7-34.3 [facility] MCHC Auto (RBC) [Mass/Vol]Or dered By: PRATEEK HICKS on 04-29-2022 MCHC (RBC) [Mass/Vol] 33.8 g/dL 32.0-35.0 [facility] MCV Auto (RBC) [Entitic vol] Ordered By: PRATEEK HICKS on 04-29-2022 MCV (RBC) [Entitic vol] 87.7 fL 80-100 [facility] Monocytes Auto (Bld) [#/Vol] Ordered By: PRATEEK HICKS on 04-29-2022 Monocytes (Bld) [#/Vol] 0.5 10*3/uL 0.0-0.8 [facility] Monocytes/100 WBC Auto (Bld) Ordered By: PRATEEK HICKS on 04-29-2022 Monocytes/100 WBC (Bld) 5.4 % . [facility] Neutrophils Auto (Bld) [#/Vo l]Ordered By: PRATEEK HICKS on 04-29-2022 Neutrophils (Bld) [#/Vol] 6.1 10*3/uL 1.8-7.7 [facility] Neutrophils/100 WBC Auto (Bl d)Ordered By: PRATEEK HICKS on 04-29-2022 Neutrophils/100 WBC (Bld) 67.8 % . [facility] No Panel InformationOrdered By: PRATEEK HICKS on 04-29-2022 Estimated GFR () > 60 mL/Min [facility] Comment on above: GFR estimated refere nce range: According to KDOQI guidelines, <60 ml/min/1.73m2 is sufficient to diagnose a patient with chronic kidney disease. Pharmacy Creatinine Clearance (Chem N/A [facility] Platelet mean volume Auto (B ld) [Entitic vol]Ordered By: PRATEEK HICKS on 04-29-2022 Platelet mean volume (Bld) [Entitic vol] 7.6 fL 6.3-10.7 [facility] Platelets Auto (Bld) [#/Vol] Ordered By: PRATEEK HICKS on 04-29-2022 Platelets (Bld) [#/Vol] 353 10*3/uL 150-450 [facility] RBC Auto (Bld) [#/Vol]Ordere d By: PRATEEK HICKS on 04-29-2022 RBC (Bld) [#/Vol] 4.44 10*6/uL 3.60-5.00 [facility] Serum or plasma calcium pio urement (mass/volume)Ordered By: PRATEEK HICKS on 04-29-2022 Calcium [Mass/Vol] 9.4 mg/dL 8.2-10.2 [facility] Serum or plasma chloride mary surement (moles/volume)Ordered By: PRATEEK HICKS on 04-29-2022 Chloride [Moles/Vol] 101 mmol/L 95-114 [facility] Serum or plasma glucose pio urement (mass/volume)Ordered By: PRATEEK HICKS on 04-29-2022 Glucose [Mass/Vol] 89 mg/dL 70-100 [facility] Comment on above: ADA recommended refe rence range Random Glucose Reference Range is dependent on time and content of last meal. Glucose of more than 200 mg/dL in a nonstressed, ambulatory subject supports the diagnosis of Diabetes Mellitus. Serum or plasma potassium me asurement (moles/volume)Ordered By: PRATEEK HICKS on 04-29-2022 Potassium [Moles/Vol] 4.2 mmol/L 3.5-5.1 [facility] Serum or plasma sodium measu rement (moles/volume)Ordered By: PRTAEEK HICKS on 04-29-2022 Sodium [Moles/Vol] 135 mmol/L 136-146 [facility] Serum or plasma total carbon dioxide measurement (moles/volume)Ordered By: PRATEEK HICKS on 04-29-2022 CO2 [Moles/Vol] 25.4 mmol/L 22.0-30.0 [facility] Serum or plasma urea nitroge n measurement (mass/volume)Ordered By: PRATEEK HICKS on 04-29-2022 Urea nitrogen [Mass/Vol] 9 mg/dL 07-26 [facility] Vital Signs Date Time Vital Sign Value Performing Clinician Facility 09-08-2024 11:28-0500 Blood Pressure Location Romeo Chaidez [facility] 09-08-2024 11:28-0500 Diastolic blood pressure 84 mm[Hg] [facility] 09-08-2024 11:28-0500 Heart rate 79 /min [facility] 09-08-2024 11:28-0500 SaO2% (BldA) [Mass fraction] 98 % [facility] 09-08-2024 11:28-0500 Systolic blood pressure 128 mm[Hg] [facility] 08-19-2024 10:00-0400 Diastolic blood pressure 84 mm[Hg] Lisa Mauricio DO Work Phone: [facility] 08-19-2024 10:00-0400 Heart rate 88 /min Lisa Mauricio DO Work Phone: [facility] 08-19-2024 10:00-0400 SaO2% (BldA) [Mass fraction] 97 % Lisa Mauricio DO Work Phone: [facility] 08-19-2024 10:00-0400 Systolic blood pressure 126 mm[Hg] Lisa Mauricio DO Work Phone: [facility] 08-11-2024 14:47-0400 Blood Pressure Location [facility] 08-11-2024 14:47-0400 Diastolic blood pressure 70 mm[Hg] [facility] 08-11-2024 14:47-0400 Heart rate 89 /min [facility] 08-11-2024 14:47-0400 SaO2% (BldA) [Mass fraction] 98 % [facility] 08-11-2024 14:47-0400 Systolic blood pressure 114 mm[Hg] [facility] 05-18-2024 12:06-0400 Diastolic blood pressure 90 mm[Hg] [facility] 05-18-2024 12:06-0400 Mean blood pressure 104 mm[Hg] [facility] 05-18-2024 12:06-0400 Systolic blood pressure 132 mm[Hg] [facility] 05-18-2024 11:36-0400 Blood Pressure Location [facility] 05-18-2024 11:36-0400 Diastolic blood pressure 90 mm[Hg] [facility] 05-18-2024 11:36-0400 Heart rate 78 /min [facility] 05-18-2024 11:36-0400 SaO2% (BldA) [Mass fraction] 98 % [facility] 05-18-2024 11:36-0400 Systolic blood pressure 140 mm[Hg] [facility] 02-24-2024 17:26-0400 Blood Pressure Location [facility] 02-24-2024 17:26-0400 Diastolic blood pressure 82 mm[Hg] [facility] 02-24-2024 17:26-0400 Heart rate 91 /min [facility] 02-24-2024 17:26-0400 SaO2% (BldA) [Mass fraction] 97 % [facility] 02-24-2024 17:26-0400 Systolic blood pressure 136 mm[Hg] [facility] 12-23-2023 17:04-0500 Blood Pressure Location [facility] 12-23-2023 17:04-0500 Diastolic blood pressure 80 mm[Hg] [facility] 12-23-2023 17:04-0500 Heart rate 81 /min [facility] 12-23-2023 17:04-0500 SaO2% (BldA) [Mass fraction] 98 % [facility] 12-23-2023 17:04-0500 Systolic blood pressure 110 mm[Hg] [facility] 09-17-2023 15:44-0500 Blood Pressure Location [facility] 09-17-2023 15:44-0500 Diastolic blood pressure 94 mm[Hg] [facility] 09-17-2023 15:44-0500 Heart rate 83 /min [facility] 09-17-2023 15:44-0500 SaO2% (BldA) [Mass fraction] 98 % [facility] 09-17-2023 15:44-0500 Systolic blood pressure 128 mm[Hg] [facility] 06-17-2023 10:35-0400 Blood Pressure Location [facility] 06-17-2023 10:35-0400 Body temperature 97.7 [degF] [facility] 06-17-2023 10:35-0400 Diastolic blood pressure 60 mm[Hg] [facility] 06-17-2023 10:35-0400 Heart rate 82 /min [facility] 06-17-2023 10:35-0400 SaO2% (BldA) [Mass fraction] 97 % [facility] 06-17-2023 10:35-0400 Systolic blood pressure 110 mm[Hg] [facility] 04-04-2023 12:48-0400 Blood Pressure Location [facility] 04-04-2023 12:48-0400 Body temperature 97.7 [degF] [facility] 04-04-2023 12:48-0400 Diastolic blood pressure 80 mm[Hg] [facility] 04-04-2023 12:48-0400 Heart rate 86 /min [facility] 04-04-2023 12:48-0400 SaO2% (BldA) [Mass fraction] 97 % Romeo Chaidez [facility] 04-04-2023 12:48-0400 Systolic blood pressure 111 mm[Hg] Romeo Chaidez [facility] 12-30-2022 10:22-0500 Blood Pressure Location Josy Isaacs [facility] 12-30-2022 10:22-0500 Body temperature 98.42 [degF] Josy Isaacs [facility] 12-30-2022 10:22-0500 Diastolic blood pressure 76 mm[Hg] Josy Isaacs [facility] 12-30-2022 10:22-0500 Heart rate 72 /min Josy Isaacs [facility] 12-30-2022 10:22-0500 SaO2% (BldA) [Mass fraction] 98 % Josy Isaacs [facility] 12-30-2022 10:22-0500 Systolic blood pressure 138 mm[Hg] Josy Isaacs [facility] 10-30-2022 09:54-0500 Blood Pressure Location Josy Isaacs [facility] 10-30-2022 09:54-0500 Body temperature 98.24 [degF] Josy Isaacs [facility] 10-30-2022 09:54-0500 Diastolic blood pressure 74 mm[Hg] Josy Isaacs [facility] 10-30-2022 09:54-0500 Heart rate 77 /min Jsoy Isaacs [facility] 10-30-2022 09:54-0500 SaO2% (BldA) [Mass fraction] 100 % Josy Isaacs [facility] 10-30-2022 09:54-0500 Systolic blood pressure 130 mm[Hg] Josy Isaacs [facility] 08-26-2022 16:31-0400 Blood Pressure Location Josy Isaacs [facility] 08-26-2022 16:31-0400 Body temperature 97.88 [degF] Josy Isaacs [facility] 08-26-2022 16:31-0400 Diastolic blood pressure 66 mm[Hg] Josy Isaacs [facility] 08-26-2022 16:31-0400 Heart rate 61 /min Josy Isaacs [facility] 08-26-2022 16:31-0400 SaO2% (BldA) [Mass fraction] 98 % Josy Isaacs [facility] 08-26-2022 16:31-0400 Systolic blood pressure 124 mm[Hg] Josy Isaacs [facility] 05-22-2022 11:29-0400 Body temperature 97.3 [degF] MD Prateek Hicks Work Phone: [facility] 05-22-2022 11:29-0400 Diastolic blood pressure 61 mm[Hg] MD Prateek Hicks Work Phone: [facility] 05-22-2022 11:29-0400 Heart rate 64 /min MD Prateek Hicks Work Phone: [facility] 05-22-2022 11:29-0400 Respiratory rate 16 /min MD Prateek Hicks Work Phone: [facility] 05-22-2022 11:29-0400 SaO2% (BldA) [Mass fraction] 98 % MD Prateek Hicks Work Phone: [facility] 05-22-2022 11:29-0400 Systolic blood pressure 120 mm[Hg] MD Prateek Hicks Work Phone: [facility] 05-15-2022 08:00-0400 Body temperature 98.3 [degF] MD Prateek Hicks Work Phone: [facility] 05-15-2022 08:00-0400 Diastolic blood pressure 80 mm[Hg] MD Prateek Hicks Work Phone: [facility] 05-15-2022 08:00-0400 Heart rate 77 /min MD Prateek Hicks Work Phone: [facility] 05-15-2022 08:00-0400 Respiratory rate 16 /min MD Prateek Hicks Work Phone: [facility] 05-15-2022 08:00-0400 SaO2% (BldA) [Mass fraction] 96 % MD Prateek Hicks Work Phone: [facility] 05-15-2022 08:00-0400 Systolic blood pressure 127 mm[Hg] MD Prateek Hicks Work Phone: [facility] 05-14-2022 03:15-0400 Inhaled oxygen flow rate 1 L/min MD Prateek Hicks Work Phone: [facility] 05-13-2022 08:16-0400 Body height 162.56 cm MD Prateek Hicks Work Phone: [facility] 05-13-2022 08:16-0400 Body mass index (BMI) [Ratio] 32.9 kg/m2 MD Prateek Hicks Work Phone: [facility] 05-13-2022 08:16-0400 Body weight 87 kg MD Prateek Hicks Work Phone: [facility] 04-28-2022 11:30-0400 Body temperature 98.06 [degF] Brady Tierney [facility] 04-28-2022 11:30-0400 Diastolic blood pressure 86 mm[Hg] Brady Tierney [facility] 04-28-2022 11:30-0400 Heart rate 74 /min Brady Tierney [facility] 04-28-2022 11:30-0400 Respiratory rate 16 /min Brady Tierney [facility] 04-28-2022 11:30-0400 SaO2% (BldA) [Mass fraction] 98 % Brady Tierney [facility] 04-28-2022 11:30-0400 Systolic blood pressure 126 mm[Hg] Brady Tierney [facility] 02-25-2022 15:59-0400 Blood Pressure Location Josy Isaacs [facility] 02-25-2022 15:59-0400 Body temperature 98.06 [degF] Josy Isaacs [facility] 02-25-2022 15:59-0400 Diastolic blood pressure 78 mm[Hg] Josy Isaacs [facility] 02-25-2022 15:59-0400 Heart rate 74 /min Josy Isaacs [facility] 02-25-2022 15:59-0400 SaO2% (BldA) [Mass fraction] 98 % Josy Isaacs [facility] 02-25-2022 15:59-0400 Systolic blood pressure 128 mm[Hg] Josy Isaacs [facility] 02-19-2022 16:48-0400 Body temperature 98.2 [degF] Remigio Trujillo MD Work Phone: [facility] 02-19-2022 16:48-0400 Diastolic blood pressure 81 mm[Hg] Remigio Trujillo MD Work Phone: [facility] 02-19-2022 16:48-0400 Heart rate 69 /min Remigio Trujillo MD Work Phone: [facility] 02-19-2022 16:48-0400 Systolic blood pressure 121 mm[Hg] Remigio Trujillo MD Work Phone: [facility] Encounters Encounter Date Encounter Type Care Provider Facility Start: 11-10-2024 ambulatory Romeo Chaidez Facili ty:[facility] Start: 09-08-2024 End: 09-08-2024 ambulatory Romeo Chaidez Facility:[facility] Start: 09-08-2024 End: 09-08-2024 Patient encounter procedure Romeo Chaidez [facility] Start: 09-08-2024 End: 09-08-2024 ambulatory Romeo Chaidez Facility:[facility] Start: 09-08-2024 End: 09-08-2024 Patient encounter procedure Romeo Chaidez [facility] Start: 09-08-2024 End: 09-08-2024 Preprocedural examination done Romeo Chaidez [facility] Start: 08-19-2024 End: 08-19-2024 Bamboo flowsheet Lisa Martínez DO Work Phone: [facility] Start: 08-19-2024 End: 08-19-2024 Bamboo [...] 08-15-2024 Emergency department patient visit Dameon Varner Facility:[facility] Start: 08-11-2024 End: 08-11-2024 ambulatory Romeo Chaidez Facility:[facility] Start: 08-11-2024 End: 08-11-2024 Patient encounter procedure Romeo Chaidez [facility] Start: 07-19-2024 End: 07-19-2024 Emergency department patient visit Brenna Yoon Facility:[facility] Start: 06-07-2024 End: 06-08-2024 Emergency department patient visit Yovani Negrete Facility:[facility] Start: 06-04-2024 End: 06-04-2024 ambulatory Romeo Chaidez Facility:[facility] Start: 06-04-2024 End: 06-04-2024 Patient encounter procedure Romeo Chaidez [facility] Start: 05-18-2024 End: 05-18-2024 ambulatory Romeo Chaidez Facility:[facility] Start: 05-18-2024 End: 05-18-2024 Patient encounter procedure Romeo Chaidez [facility] Start: 05-13-2024 End: 05-13-2024 ambulatory LISA MARTÍNEZ Not Available Start: 04-13-2024 End: 04-14-2024 Emergency department patient visit Tru Matt Facility:[facility] Start: 02-24-2024 End: 02-24-2024 ambulatory Romeo Chaidez Facility:[facility] Start: 02-24-2024 End: 02-24-2024 Patient encounter procedure Romeo Chaidez [facility] Start: 02-03-2024 End: 02-04-2024 ambulatory REMIGIO TRUJILLO Facility:[facility] Start: 02-03-2024 End: 02-03-2024 Patient encounter procedure Remigio Trujillo MD Work Phone: Plastic Surgery Comment on above: Encounter for cosmet ic procedure (Primary Dx) Start: 01-29-2024 End: 01-29-2024 [facility] Start: 2023 End: 2023 Emergency department patient visit Tru Gillespie Shaka Facility:[facility] Start: 12-23-2023 End: 12-23-2023 ambulatory Romeo Chaidez Facility:[facility] Start: 12-23-2023 End: 12-23-2023 Patient encounter procedure Romeo Chaidez [facility] Start: 11-18-2023 End: 11-18-2023 Emergency department patient visit Jeff Ingram Facility:[facility] Start: 10-21-2023 End: 10-21-2023 ambulatory PRATEEK J PRINTY Not Available Start: 10-14-2023 End: 10-14-2023 ambulatory PRATEEK PRINTY Not Available Start: 10-01-2023 End: 10-01-2023 ambulatory Romeo Chaidez Facility:[facility] Start: 10-01-2023 End: 10-01-2023 Patient encounter procedure Romeo Chaidez [facility] Start: 09-18-2023 End: 09-18-2023 ambulatory PRATEEK J PRINTY Not Available Start: 09-17-2023 End: 09-17-2023 ambulatory Romeo Chaidez Facility:[facility] Start: 09-17-2023 End: 09-17-2023 Patient encounter procedure Romeo Chaidez [facility] Start: 09-15-2023 End: 09-15-2023 Emergency department patient visit Tru Matt Facility:[facility] Start: 06-17-2023 End: 06-17-2023 Patient encounter procedure Romeo Tothrima [facility] Start: 04-04-2023 End: 04-04-2023 Patient encounter procedure Romeo Lopez Yahairalaura [facility] Start: 03-18-2023 End: 03-19-2023 ambulatory REMIGIO TRUJILLO Facility:[facility] Start: 03-10-2023 End: 03-12-[address] DOCTOR BEAL Facility: Start: 12-30-2022 End: 12-30-2022 Patient encounter procedure Josy Isaacs [facility] Start: 12-05-2022 Telephone encounter Kacie Scars [facility] Comment on above: Plastic Surg Skin Ca re (Pt purchased Obagi Clear 4% from [facility]/mailed.) Start: 12-04-2022 Refill Remigio Trujillo MD Work Phone: Plastic Surgery Comment on above: Refill Request Start: 11-24-2022 End: 11-24-2022 ambulatory CHARLIE DIAB . Facility: Start: 10-30-2022 End: 10-30-2022 Patient encounter procedure Josy Isaacs [facility] Start: 10-08-2022 End: 10-08-2022 Patient encounter procedure Remigio Trujillo MD Work Phone: Plastic Surgery Comment on above: Encounter for cosmet ic surgery (Primary Dx) Start: 08-26-2022 End: 08-26-2022 Patient encounter procedure Josy Isaacs [facility] Start: 06-04-2022 End: 06-04-2022 Patient encounter procedure Remigio Trujillo MD Work Phone: Plastic Surgery Comment on above: Elective procedure f or unacceptable cosmetic appearance (Primary Dx) Start: 05-22-2022 End: 05-22-2022 Emergency department patient visit Josy Isaacs Facility:[facility] Start: 05-22-2022 End: 05-22-2022 Emergency department patient visit MD Prateek Hicks Work Phone: [facility] Start: 05-13-2022 End: 05-15-2022 Evaluation and management of inpatient Josy Isaacs Facility:[facility] Start: 05-13-2022 End: 05-15-2022 Evaluation and management of inpatient MD Prateek Hicks Work Phone: [facility] Start: 05-09-2022 End: 05-09-2022 ambulatory Josy Isaacs Facility:[facility] Start: 05-09-2022 End: 05-09-2022 Patient encounter procedure MD Prateek Hicks Work Phone: [facility]-Pre-Surgical Testing Start: 04-29-2022 End: 04-29-2022 ambulatory Josy Isaacs Facility:[facility] Start: 04-29-2022 End: 04-29-2022 Patient encounter procedure MD Prateek Hicks Work Phone: [facility]Pre-Surgical Testing Start: 04-28-2022 End: 04-28-2022 Emergency department patient visit Brady Tierney [facility] Start: 04-09-2022 End: 04-09-2022 Patient encounter procedure Remigio Trujillo MD Work Phone: Plastic Surgery Comment on above: Encounter for cosmet ic surgery (Primary Dx) Start: 02-25-2022 End: 02-25-2022 Patient encounter procedure Josy Isaacs [facility] Start: 02-19-2022 End: 02-19-2022 Patient encounter procedure Remigio Trujillo MD Work Phone: Plastic Surgery Comment on above: Encounter for cosmet ic surgery (Primary Dx) Start: 02-12-2022 End: 02-12-2022 Patient encounter procedure Nazanin Shaffer [facility] Procedures Date Procedure Procedure Detail Performing Clinician [...] DTaP,Tdap,Td Vaccine (2 - Td or Tdap) [facility] Start: 01-27-2027 Screening for malign ant neoplasm of colon [facility] Start: 11-18-2024 End: 11-18-2024 Patient encounter procedure 11/18/2024 11:15 AM EST Procedure Visit [facility] [place] [address] [place] [address] Lisa Martínez DO [address] [place], [place] [id number] [facility] Start: 08-19-2024 End: 08-19-2024 Patient encounter procedure 08/19/2024 10:00 AM EDT Procedure Visit [facility] [place] [address] [place] [address] Lisa Martínez [address] [place] [address] Arrived [facility] [address] [facility] Comment on above: Arrived Start: 2023 Shingrix Vaccine (1 of 2) Shingrix Vaccine (1 of 2) [facility] Start: 11-03-2023 Depression Assessment Depression Ass essment [facility] Start: 07-04-2023 Covid-19 Vaccine () Covid-19 Vaccine () [facility] Start: 11-03-2022 DEPRESSION ASSESSMENT DEPRESSION ASS ESSMENT [facility] Start: 08-30-2022 Diabetes Screening Diabetes Screenin g [facility] Start: 07-04-2022 Influenza vaccination C [facility] Start: 05-15-2022 [facility] Work Phone: Start: 05-13-2022 Release Peritoneum, Open Approach Release Peritoneum, Open Approach [facility] Start: 05-13-2022 Resection of Bilater al Fallopian Tubes, Open Approach Resection of Bilateral Fallopian Tubes, Open Approach [facility] Start: 05-13-2022 Resection of Bilater al Ovaries, Open Approach Resection of Bilateral Ovaries, Open Approach [facility] Start: 05-13-2022 Resection of Cervix, Open Approach Resection of Cervix, Open Approach [facility] Start: 05-13-2022 Resection of Uterus, Open Approach Resection of Uterus, Open Approach [facility] Start: 05-13-2022 Hospital admission [facility] Work Phone: Start: 11-03-2021 DEPRESSION ASSESSMENT DEPRESSION ASS ESSMENT [facility] Start: 08-30-2020 Screening for malign ant neoplasm of breast Mammogram Screening [facility] Start: 2018 COLOGUARD (FIT-DNA) COLOGUARD (FIT-D NA) [facility] Start: 2018 Colonoscopy COLONOSCOPY [facility] Start: 2018 COLORECTAL CANCER SCREENING COLORECTAL CANCER SCREENING [facility] Start: [address] COLONOGRAPHY [facility] Start: 2018 DIABETES SCREEN DIABETES SCREEN [facility] Start: 2018 FECAL OCCULT BLOOD FECAL OCCULT BLOO D [facility] Start: 2018 Lipid panel Lipid Screening [facility] Start: 2018 LIPID SCREEN LIPID SCREEN [facility] Start: 2018 Screening for malign ant neoplasm of colon [facility] Start: 2018 SIGMOIDOSCOPY SIGMOIDOSCOPY [facility] Start: 2013 Mammography MAMMOGRAM [facility] Start: 2003 HPV TESTING HPV TESTING [facility] Start: 2003 Screening for malign ant neoplasm of cervix HPV Testing [facility] Start: 1994 PAP TESTING PAP TESTING [facility] Start: 1994 Screening for malign ant neoplasm of cervix Pap Testing [facility] Start: 1992 Hepatitis B Vaccine (1 of 3 - 19+ 3-dose series) Hepatitis B Vaccine (1 of 3 - 19+ 3-dose series) [facility] Start: 1992 Urine microalbumin profile DTAP,TDAP,TD (1 - Tdap) [facility] Start: 1991 HEPATITIS C SCREENING HEPATITIS C [facility] Start: 1991 Hepatitis C screening Hepatitis C [facility] Start: 1991 HIV SCREENING HIV SCREENING [facility] Start: 1991 HIV screening HIV Screening [facility] Start: 1985 Adult depression screening assessment DEPRESSION SCREENING [facility] Start: 1979 PNEUMOCOCCAL (1 - PCV) PNEUMOCOCCAL (1 - PCV) [facility] Start: 1979 Pneumococcal vaccination Pneum ococcal Vaccine (1 of 2 - PCV) [facility] Start: 1978 COVID-19 VACCINE (#1) COVID-19 VACCI NE (#1) [facility] Start: 1978 COVID-19 VACCINE (1) COVID-19 VACCIN E (1) [facility] Start: 06-24-1974 COVID-19 VACCINE (#1) COVID-19 VACCI NE (#1) [facility] Start: 1973 HEPATITIS B (1 of 3 - 3-dose series) HEPATITIS B (1 of 3 - 3-dose series) [facility] Bacteria identified in Blood by Culture [facility] Patient Education [facility] Work Phone: Patient referral [facility] Work Phone: [facility] Immunizations Immunization Date Immunization Notes Care Provider Fa ciliramy 09-17-2023 influenza, injectabl e, quadrivalent, preservative free Romeo Chaidez [facility] [place] 07-13-2020 tetanus toxoid, reduced diphtheria toxoid, and acellular pertussis vaccine, adsorbed Josy Isaacs [facility] 01-14-2011 hepatitis B vaccine, pediatric or pediatric/adolescent dosage Josy Isaacs [facility] 08-15-2010 hepatitis B vaccine, pediatric or pediatric/adolescent dosage Josy Isaacs [facility] 07-17-2010 hepatitis B vaccine, pediatric or pediatric/adolescent dosage Josy Isaacs [facility] NEGATED: Highlighted row has not occurred!08-26-2022 influenza virus vaccine, unspecified formulation Josy Isaacs [facility] Payers Date Payer Category Payer Medicaid [id number] 2013 Medicaid [id number] 1973 Unknown [id number] 2.16.84 0.1.530792.3.579.2.593 1973 Unknown [id number] 2.16.84 0.1.759061.3.579.2.593 1973 Unknown [id number] 2.16.84 0.1.220519.3.579.2.1259 1973 Unknown [id number] 2.16.84 0.1.667268.3.579.2.1259 1973 Unknown [id number] 2.16.840 .1.568977.3.579.2.1259 1973 Unknown [id number] 2.16.840 .1.755752.3.579.2.9 1973 Unknown [id number] 2.16.840 .1.068106.3.579.2.9 1973 Unknown [id number] 2.16.8 40.1.253257.3.579.2. 1973 Unknown [id number] 2.16.8 40.1.041793.3.579.2. 1973 Unknown [id number] 2.16.8 40.1.987320.3.579.2. 1973 Unknown [id number] 2.16.8 40.1.795532.3.579.2. 1973 Unknown [id number] 2.16.8 40.1.455130.3.579.2. 1973 Unknown [id number] 2.16.8 40.1.544099.3.579.2.8 1973 Unknown [id number] 2.16.8 40.1.053124.3.579.2. 1973 Unknown [id number] 2.16.8 40.1.508338.3.579.2. 1973 Unknown [id number] 2.16.8 40.1.437045.3.579.2. 1973 Unknown [id number] 2.16.8 40.1.357207.3.579.2. 1973 Unknown [id number] 2.16.8 40.1.800248.3.579.2. 1973 Unknown [id number] 2.16.8 40.1.250022.3.579.2. 1973 Unknown [id number] 2.16.8 40.1.036459.3.579.2.727 1973 Unknown [id number] 2.16.8 40.1.504561.3.579.2.727 1973 Unknown [id number] 2.16.8 40.1.859341.3.579.2.727 1973 Unknown [id number] 2.16.8 40.1.795764.3.579.2.727 1973 Unknown [id number] 2.16.8 40.1.208077.3.579.2.727 1973 Unknown [id number] 2.16.8 40.1.297506.3.579.2.727 1959 Unknown [id number] Medicaid [place] [employer] [id number] 401 [id number] Self-pay Self Pay [id number] Social History Date Type Detail Facility Start: 11-26-2021 End: 08-11-2024 Tobacco smoking status Light tobacco smoker (finding) [facility] Tobacco smoking status Never [facility] Start: 03-18-2023 End: 09-18-2023 Sex Assigned At Female [facility] Start: 06-20-2020 End: 03-18-2023 Tobacco smoking status MSIS Occasional tobacco smoker [facility] Start: 06-20-2020 End: 09-16-2023 Tobacco use and exposure Smokeless tobacco non-user [facility] Start: 1975 Sex Assigned At Female [facility] Start: 05-13-2022 Tobacco smoking stat us MSIS Current Heavy tobacco smoker [facility] Start: 05-25-2022 End: 06-04-2022 Exposure to SARS-CoV-2 (event) Not sure [facility] Start: 03-18-2023 End: 09-18-2023 History of Social function [facility] Start: 01-24-2022 Gender identity Identifies as female gender (finding) [facility] Start: 09-16-2023 Tobacco smoking stat [facility] Smokes tobacco daily [facility] History of tobacco use Cigarette Smoker [facility] Start: 03-25-2024 Alcoholic beverage intake Ex-drinker (finding) [facility] Start: 10-29-2023 Alcohol Comment caffeine 3-4 cups/da y [facility] Start: 1975 Sex assigned at Not on file [facility] Goals Date Patient Goal Desired Activity /State Functional Status Date Assessment Result Facility 09-08-2024 Functional Status N/A [facility] 08-11-2024 Functional Status N/A [facility] 05-18-2024 Functional Status N/A [facility] 02-24-2024 Functional Status N/A [facility] 12-23-2023 Functional Status N/A [facility] 09-17-2023 Functional Status N/A [facility] 04-04-2023 Functional Status N/A [facility] 12-30-2022 Functional Status N/A [facility] 10-30-2022 Functional Status N/A [facility] 08-26-2022 Functional Status N/A [facility] 04-28-2022 Functional Status N/A [facility] Clinical Notes 11-26-2021 to 09-08-2024 Lisa Martínez [...] what activities are safe for you. Take vvos-wsg-pywdypf and prescription medicines only as told by [...] provider. Document Revised: 01/17/2023 Document Reviewed: 01/17/2023 [employer] Patient Education 2023 KUBOO. [facility] 09-08-2024 Note Patient Education Pharmacology General [...] activities are safe for you. ??? Take jcqw-hsn-ngzdpxu and prescription medicines only as told by [...] provider. Document Revised: 01/17/2023 Document Reviewed: 01/17/2023 [employer]Me Patient Education ? 2023 KUBOO. [facility] 08-19-2024 History of Present illness Narrative [...] sterilized with 70% isopropanol alcohol. LOT # [id number] EXP 11/2026 Dilution: 1:1 Procedure Procerus 10 units Galvanometer Assembler, L 5 units Galvanometer Assembler, R 5 units Frontalis, L 10+5 units [...] without status migrainosus - G43.719 Toradol Lot# [id number] in right Glut gray Exp 06/27 documented in this encounter [facility] 08-15-2024 Note Education Materials Neurology Chronic Migraine [...] these instructions at home: Medicines ? Take gtkl-ioa-iddczma and prescription medicines only as told by [...] Headache and Migraine Patients (CHAMP): headachemigraine.org ? [place] Migraine Foundation: americanmigrainefoundation.org ? National Headache Foundation: [...] provider. Document Revised: 06/16/2023 Document Reviewed: 06/16/2023 [employer] Patient Education ? 2023 KUBOO. Orthopedics Cervical Radiculopathy Follow-up with your surgeon for treatment of your neck pain radiating into the right (more content not included)... [facility] 08-11-2024 Hospital Discharge instructions Patient Education 08/11/2024 [...] require a prescription. You can also purchase abtf-cdq-ktvwmvy medicines. Medicines may have nicotine in them [...] and encouragement. Call telephone quitlines, such as 4-563-EELD-NOW, reach out to support groups, or work [...] provider. Document Revised: 10/11/2022 Document Reviewed: 10/11/2022 [employer] Patient Education 2023 KUBOO. Follow Up Care 05/18/2024 12:56:29 With:Dm ANDINO, XAVIER Boucher PED Address: [address] [place] [address] [phone] When:3 months Comments:20 min slotcyclobenzaprine 5mg twice a daymeloxicam 7.5mg dailyhave the surgeon send us notesf/u 3 months [facility] [place] 08-11-2024 Note Patient Education Pulmonary Medicine Steps [...] require a prescription. You can also purchase ppcc-emm-monbrpj medicines. Medicines may have nicotine in them [...] and encouragement. Call telephone quitlines, such as 4-811-XQYI-NOW, reach out to support groups, or work [...] systems that can (more content not included)... [facility] 07-19-2024 Note Education Materials Orthopedics Muscle [...] not too tight. General instructions ? Take okqu-tki-txinnjv and prescription medicines only as told by [...] provider. Document Revised: 01/07/2022 Document Reviewed: 01/07/2022 [employer] Patient Education ? 2023 KUBOO. [facility] 06-08-2024 Note Education Materials Cardiovascular Hypertension, Adult [...] Keep all follow-up visits. Medicines ? Take xhic-gcc-tlqktvn and prescription medicines only as told by [...] work harder to (more content not included)... [facility] 05-18-2024 Hospital Discharge instructions Patient Education 05/18/2024 [...] Follow these instructions at home: Medicines Take yxmq-hma-lbtqzqu and prescription medicines only as told by [...] a problem, search for a local or [facility]. Public mental health [...] with Attention Deficit Hyperactivity Disorder: marina.org National Ione of Mental Health: nimh.nih.gov Centers for Disease [...] the National Suicide Prevention Lifeline at or 783. This is open 24 hours a day. Text the Crisis Text Line at 492306. Summary With treatment and support, you can [...] provider. Document Revised: 02/07/2023 Document Reviewed: 02/07/2023 [employer] Patient Education 2022 KUBOO. Follow Up Care 02/24/2024 18:03:00 With:Dm ANDINO, XAVIER Boucher, PED Address: [address] [place] [address] [phone] When:3 months Comments:[address] for lung cancer screeningI have updated your med list todayThe book I recommend is Crucial Conversations 3 months f/u [facility] 05-18-2024 Note Patient [...] these instructions at home: Medicines ? Take gdtg-qyr-pzifjls and prescription medicines only as told by [...] a problem, search for a local or [facility]. Public mental health [...] Attention Deficit Hyperactivity Disorder: marina.org ? National Ione of Mental Health: [facility].nih.gov ? Centers for Disease Control and [...] or others, or (more content not included)... [facility] 04-14-2024 Note [phone] [id number] 04-14-2024 Note Education Materials Neurology Occipital Neuralgia [...] heat or cold to the area. ? Klrs-rdq-multqos pain relievers. If these measures do not [...] to the area. General instructions ? Take tbjl-wgb-mjyjels and prescription medicines only as told by [...] Summary ? O (more content not included)... [facility] 02-24-2024 Hospital Discharge instructions Patient Education 02/24/2024 [...] primary care provider or a mental health caregiver services home. Your health care provider may use a [...] management. You may work with a assistant softball coach who is specially trained to help people with ADHD manage and organize activities and function more effectively. Follow these instructions at home: Medicines Take szxt-xbq-jqdbozn and prescription medicines only as told by [...] Attention Deficit Disorder Association (ADDA): add.org National Ione of Mental Health (NIMH): nimh.nih.gov Contact a [...] the National Suicide Prevention Lifeline at or 922. This is open 24 hours a day Text the Crisis Text Line at 486715. Summary ADHD is a mental health disorder [...] provider. Document Revised: 02/07/2023 Document Reviewed: 02/07/2023 [employer] Patient Education 2022 KUBOO. Follow Up Care 12/23/2023 18:06:46 With:Dm ANDINO, XAVIER Boucher, PED Address: [address] [place] [address] [phone] When:3 months Comments:20 min slotTo go instructions:Read Driven to Distraction by Pablo Vital to learn more about ADHD https://www.SeatSwapr.[employer]/slides hows/xnup-wrdfdnxg-oqayt-off-our-f eet/*When you see providers outside of [facility], please request that they send office visit notes every time you're seen there - this helps us take better care of youFollow up 3 months [facility] [place] 02-03-2024 Note HNO ID: [id number] Author: REMIGIO TRUJILLO MD Service: ? Author Type: Physician Type: Progress Notes Filed: 02/03/2024 16:47 Note Text: [facility] STAFF PHYSICIAN NOTE OF PERSONAL INVOLVEMENT IN CARE I have reviewed the progress note obtained and documented by the physician electrician assistant/registered nurse/fellow, and I personally participated in the beck components. I have discussed the case and management of the patient's care. SIGNATURE: Remigio Trujillo MD [facility] 02-03-2024 Note HNO ID: [id number] Author: SHAWANDA JORDAN APRN.SPEECH PROFESSOR Service: ? Author Type: Nurse Practitioner Type: [...] reflects their service. Scribed by Shawanda Jordan APRN.[facility] 02-03-2024 History of Present illness Narrative [facility] STAFF PHYSICIAN NOTE OF PERSONAL INVOLVEMENT IN CARE I have reviewed the progress note obtained and documented by the physician electrician assistant/registered nurse/fellow, and I personally participated in [...] reflects their service. Scribed by Shawanda Jordan APRN.SPEECH PROFESSOR documented in this encounter [facility] 01-29-2024 Note Education Materials Cardiovascular Hypertension, [...] Keep all follow-up visits. Medicines ? Take nzvy-csu-ufavcph and prescription medicines only as told by [...] be an em (more content not included)... [facility] 2023 Note Education Materials Neurology Migraine Headache [...] these instructions at home: Medicines ? Take ernp-hpe-jjohqeb and prescription medicines only as told by your doctor. ? Ask your doctor if the medicine prescribed to you: ? Requires you to avoid driving or using heavy machinery. ? Can cause trouble pooping (constipation). You may need to take these steps to prevent or treat trouble pooping: ? Drink enough fluid to keep your pee (urine) pale yellow. ? Take wgiz-zsq-efycnte or prescription medicines. ? Eat foods that [...] that is differe (more content not included)... [facility] 12-23-2023 Hospital Discharge instructions Patient Education 12/23/2023 [...] primary care provider or a mental health caregiver services home. Your health care provider may use a [...] management. You may work with a assistant softball coach who is specially trained to help people with ADHD manage and organize activities and function more effectively. Follow these instructions at home: Medicines Take hcqr-fwf-gdgcbub and prescription medicines only as told by [...] Attention Deficit Disorder Association (ADDA): add.org National Ione of Mental Health (NIMH): nimh.nih.gov Contact a [...] the National Suicide Prevention Lifeline at or 252. This is open 24 hours a day Text the Crisis Text Line at 855899. Summary ADHD is a mental health disorder [...] provider. Document Revised: 02/07/2023 Document Reviewed: 02/07/2023 [employer] Patient Education 2022 KUBOO. Follow Up Care 09/17/2023 16:49:24 With:Dm ANDINO, XAVIER Boucher, PED Address: [address] [place] [address] [phone] When:3 months Comments:20 min slotTo go instructions:Continue Adderall as prescribedRead Driven to Distraction by Pablo Vital to learn more about ADHD https://www.SeatSwapr.com/slides hows/bhcf-iytvucof-tvtzc-off-our-f eet/F/u every three months [facility] [place] 11-18-2023 Note Education Materials Neurology Migraine Headache [...] these instructions at home: Medicines ? Take npda-grg-sibmqnt and prescription medicines only as told by your health care provider. ? Ask your health care provider if the medicine prescribed to you: ? Requires you to avoid driving or using heavy machinery. ? Can cause constipation. You may need to take these actions to prevent or treat constipation: ? Drink enough fluid to keep your urine pale yellow. ? Take dosl-rms-vdhottt or prescription medicines. ? Eat foods that [...] You develop symptoms (more content not included)... [facility] 09-15-2023 Note Education Materials Neurology Migraine Headache [...] these instructions at home: Medicines ? Take qhzv-mry-mvgghrv and prescription medicines only as told by your doctor. ? Ask your doctor if the medicine prescribed to you: ? Requires you to avoid driving or using heavy machinery. ? Can cause trouble pooping (constipation). You may need to take these steps to prevent or treat trouble pooping: ? Drink enough fluid to keep your pee (urine) pale yellow. ? Take qfon-wky-vttvbue or prescription medicines. ? Eat foods that [...] that is differe (more content not included)... [facility] 06-17-2023 Hospital Discharge instructions Follow Up Care 06/17/2023 11:37:09 With:Romeo Chaidez DO, FAM, PED Address: [address] [place] [address] [phone] When:3 months Comments:ADHD - 3 month [facility] [place] 03-18-2023 Note HNO ID: [id number] Author: Remigio Trujillo MD Service: ? Author [...] (maintenance) to face ($200) Remigio Trujillo MD [facility] 12-30-2022 Evaluation + Plan note Future Scheduled TestsMRI Spine Cervical w/o Contrast 12/30/22 [facility] 12-30-2022 Hospital Discharge instructions [...] your health care provider. Managing pain Take cbkv-vgy-dfsduwb and prescription medicines only as told by [...] 07/15/2002 Document Revised: 09/10/2019 Document Reviewed: 09/10/2019 [employer]Me Patient Education 2020 KUBOO. 12/30/2022 10:59:03 Tobacco Use Disorder Tobacco Use [...] reduces withdrawal symptoms. NRT is available as: ?Hzja-sjz-pitqaht gums, lozenges, and skin patches. ?Prescription mouth [...] recovery for many people. General instructions Take ngps-dvl-lmhvovy and prescription medicines only as told by your health care provider. Check with your health care provider before taking any new prescription or rlrc-nzc-nejjvnp medicines. Decide on a friend, family member, or smoking quit-line (such as 2-062-WUMH-NOW in the [place] that you can call [...] 06/25/2005 Document Revised: 10/07/2018 Document Reviewed: 10/07/2018 [employer] Patient Education 2020 KUBOO. 12/30/2022 10:59:00 BMI for Adults BMI for [...] height. This can be done either in [place] ([place] or metric measurements. Note that charts are available to help you find your BMI quickly and easily without having to do these calculations yourself. To calculate your BMI in [place] ([place] measurements, your health care provider will: [...] medical problems. BMI can be measured using [place]an measurements or metric measurements. To interpret your [...] 07/01/2005 Document Revised: 10/02/2018 Document Reviewed: 09/02/2018 [employer] Patient Education 2020 KUBOO. 12/30/2022 10:58:58 Attention Deficit Hyperactivity Disorder, Adult [...] primary care provider or a mental health caregiver services home. Your health care provider may use a [...] management. You may work with a assistant softball coach who is specially trained to help people with ADHD manage and organize activities and function more effectively. Follow these instructions at home: Medicines Take zheh-nza-ytwyoki and prescription medicines only as told by [...] Attention Deficit Disorder Association (ADDA): www.add.org National Ione of Mental Health (NIMH): www.nimh.nih.gov Contact a [...] Document Reviewed: 03/13/2020 Elsevier Patient Education 2019 [employer] Inc. Follow Up Care 10/30/2022 10:15:29 With:Josy Isaacs CNP Address: [address] [place] [address] [place] [address] [phone] When:3 months [facility] 10-30-2022 Hospital Discharge instructions [...] reduces withdrawal symptoms. NRT is available as: ?Grrl-sme-kzlhhbb gums, lozenges, and skin patches. ?Prescription mouth [...] recovery for many people. General instructions Take aedw-ltp-zwuzhjr and prescription medicines only as told by your health care provider. Check with your health care provider before taking any new prescription or gwsr-hxj-qvbfomr medicines. Decide on a friend, family member, or smoking quit-line (such as 1-765-EGRV-NOW in the [place] that you can call [...] 06/25/2005 Document Revised: 10/07/2018 Document Reviewed: 10/07/2018 [employer] Patient Education 2020 KUBOO. 10/30/2022 10:28:09 BMI for Adults BMI for [...] height. This can be done either in [place] ([place] or metric measurements. Note that charts are available to help you find your BMI quickly and easily without having to do these calculations yourself. To calculate your BMI in [place] ([place] measurements, your health care provider will: [...] medical problems. BMI can be measured using [place]an measurements or metric measurements. To interpret your [...] 07/01/2005 Document Revised: 10/02/2018 Document Reviewed: 09/02/2018 [employer]Me Patient Education 2020 [employer] Inc. 10/30/2022 10:28:07 Attention Deficit Hyperactivity Disorder, [...] primary care provider or a mental health caregiver services home. Your health care provider may use a [...] management. You may work with a assistant softball coach who is specially trained to help people with ADHD manage and organize activities and function more effectively. Follow these instructions at home: Medicines Take pjbz-yyk-pvknzbb and prescription medicines only as told by [...] Attention Deficit Disorder Association (ADDA): www.add.org National Ione of Mental Health (NIMH): www.nimh.nih.gov Contact a [...] 06/11/2018 Document Revised: 03/13/2020 Document Reviewed: 03/13/2020 [employer] Patient Education 2020 [employer]. Follow Up Care 08/26/2022 17:13:26 With:Josy Isaacs CNP Address: [address] [place] [id number] [phone] When:3 months [facility] 10-08-2022 History of Present [...] Past Histories independently gathered by the clinical research support specialist and the remaining scribed note accurately describes my personal service to the patient. marky trujillo documented in this encounter [facility] 08-26-2022 Hospital Discharge instructions Patient Education [...] height. This can be done either in [place] ([place] or metric measurements. Note that charts are available to help you find your BMI quickly and easily without having to do these calculations yourself. To calculate your BMI in [place] ([place] measurements, your health care provider will: [...] medical problems. BMI can be measured using [place]an measurements or metric measurements. To interpret your [...] 07/01/2005 Document Revised: 10/02/2018 Document Reviewed: 09/02/2018 [employer] Patient Education 2020 [employer] 08/26/2022 20:15:59 Tobacco Use Disorder Tobacco [...] reduces withdrawal symptoms. NRT is available as: ?Zaph-wiw-hjrrumi gums, lozenges, and skin patches. ?Prescription mouth [...] recovery for many people. General instructions Take btbn-cnp-msvghio and prescription medicines only as told by your health care provider. Check with your health care provider before taking any new prescription or xeyr-crp-xnkozua medicines. Decide on a friend, family member, or smoking quit-line (such as 5-604-TJZK-NOW in the [place] that you can call [...] 06/25/2005 Document Revised: 10/07/2018 Document Reviewed: 10/07/2018 [employer] Patient Education 2020 [employer]. 08/26/2022 20:15:57 Attention Deficit Hyperactivity Disorder, Adult [...] primary care provider or a mental health caregiver services home. Your health care provider may use a [...] management. You may work with a assistant softball coach who is specially trained to help people with ADHD manage and organize activities and function more effectively. Follow these instructions at home: Medicines Take tkte-zjm-utapoub and prescription medicines only as told by [...] Attention Deficit Disorder Association (ADDA): www.add.org National Ione of Mental Health (NIMH): www.nimh.nih.gov Contact a [...] 06/11/2018 Document Revised: 03/13/2020 Document Reviewed: 03/13/2020 [employer]Me Patient Education 2020 [employer] 08/26/2022 20:15:55 Migraine Headache Migraine Headache [...] Follow these instructions at home: Medicines Take tbxz-wwl-rfvcfrv and prescription medicines only as told by your health care provider. Ask your health care provider if the medicine prescribed to you: ?Requires you to avoid driving or using heavy machinery. ?Can cause constipation. You may need to take these actions to prevent or treat constipation: ?Drink enough fluid to keep your urine pale yellow. ?Take nfnk-kks-hvjiiqm or prescription medicines. ?Eat foods that are [...] 10/20/2006 Document Revised: 02/11/2020 Document Reviewed: 12/02/2019 [employer]Me Patient Education 2019 KUBOO. Follow Up Care 02/25/2022 16:52:01 With:Josy Isaacs CNP Address: [address] [place] [phone] When:1 month [facility] 06-04-2022 History of Present [...] Past Histories independently gathered by the clinical research support specialist and the remaining scribed note accurately describes my personal service to the patient. marky trujillo documented in this encounter [facility] 04-28-2022 Hospital Discharge instructions Patient Education 04/28/2022 12:32:16 Skin Abscess, Ykea-xm-Ooze Skin Abscess A skin abscess is an [...] Follow these instructions at home: Medicines Take sano-edp-xpiccjg and prescription medicines only as told by [...] cannot use soap and water, use hand hot dip plater. Check your abscess every day for signs that the infection is getting worse. Check for: ?More redness, swelling, or pain. ?More fluid or blood. ?Warmth. ?More pus or a bad smell. General instructions To avoid spreading the infection: ?Do not share personal care items, towels, or hot tubs with others. ?Avoid making lojr-ch-amtx contact with other people. Keep all follow-up [...] 04/07/2009 Document Revised: 02/10/2020 Document Reviewed: 12/03/2018 [employer]Me Patient Education 2020 [employer] Follow Up Care 04/28/2022 11:27:09 With:Josy Isaacs Address:Unknown When:05/01/2022 12:04:27 [facility] 04-09-2022 History of Present illness Narrative Date: [...] Past Histories independently gathered by the clinical research support specialist and the remaining scribed note accurately describes my personal service to the patient. marky trujillo documented in this encounter [facility] 02-19-2022 History of Present illness Narrative [...] Past Histories independently gathered by the clinical research support specialist and the remaining scribed note accurately describes my personal service to the patient. marky trujillo documented in this encounter [facility] 11-26-2021 Hospital Discharge instructions Follow Up Care 11/26/2021 16:27:06 With:Josy Isaacs CNP Address: When:6 months Comments:or sooner if needed. [facility] Evaluation + Plan note Future Appointments Appointment Date:02/25/2022 04:00:00 PM Scheduled Provider:Josy Isaacs CNP Location:[facility] Appointment Type:[facility] Evaluation + Plan note Future Appointments Appointment Date:08/26/2022 04:20:00 PM Scheduled Provider:Josy Isaacs CNP Location:[facility] Appointment Type:[facility] Evaluation + Plan note Future Appointments Appointment Date:08/26/2022 04:20:00 PM Scheduled Provider:Josy Isaacs CNP Location:[facility] Appointment Type: Open Diagnostic Tests PendingWound Culture 04/28/22 [facility] Evaluation + Plan note Future Appointments Appointment Date:09/30/2022 11:00:00 AM Scheduled Provider:Josy Isaacs CNP Location:[facility] Appointment Type:[facility] Evaluation + Plan note Future Appointments Appointment Date:12/30/2022 10:20:00 AM Scheduled Provider:Josy Isaacs CNP Location:[facility] Appointment Type:[facility] Evaluation + Plan note Future Appointments Appointment Date:05/02/2023 08:40:00 AM Scheduled Provider:Romeo Chaidez DO Location:[facility] Appointment Type: New Patient - Adult Future Scheduled TestsMRI Spine Cervical w/o Contrast 12/30/22 [facility] Evaluation + Plan note Future Appointments Appointment Date:09/17/2023 03:40:00 PM Scheduled Provider:Romeo Chaidez DO Location:[facility] Appointment Type: Open Future Scheduled [id number] 06/17/23TSH With T4fr Reflex 06/17/23CBC w/ Auto Diff 06/17/23Ferritin 06/17/23Folate Level 06/17/23Iron Level 06/17/23Transferrin 06/17/23Vitamin B12 Level 06/17/23MRI Spine Cervical w/o Contrast 12/30/22 [facility] Evaluation + Plan note Future Appointments Appointment Date:12/23/2023 05:00:00 PM Scheduled Provider:Romeo Chaidez DO Location:[facility] Appointment Type: Open Future Scheduled [id number] 06/17/23TSH With T4fr Reflex 06/17/23CBC w/ Auto Diff 06/17/23Ferritin 06/17/23Folate Level 06/17/23Iron Level 06/17/23Transferrin 06/17/23Vitamin B12 Level 06/17/23MRI Spine Cervical w/o Contrast 12/30/22 [facility] Evaluation + Plan note Future Appointments Appointment Date:12/23/2023 05:00:00 PM Scheduled Provider:Romeo Chaidez DO Location:[facility] Appointment Type: Open Future Scheduled TestsMRI Spine Cervical w/o Contrast 12/30/22 [facility] Evaluation + Plan note Future Appointments Appointment Date:02/24/2024 05:20:00 PM Scheduled Provider:Romeo Chaidez DO Location:[facility] Appointment Type: Open Future Scheduled TestsVitamin D 25 Hydroxy 10/07/23MRI Spine Cervical w/o Contrast 12/30/22 [facility] Evaluation + Plan note Future Appointments Appointment Date:05/18/2024 11:40:00 AM Scheduled Provider:Romeo Chaidez DO Location:[facility] Appointment Type: Open Future Scheduled TestsVitamin D 25 Hydroxy 10/07/23 [facility] Evaluation + Plan note Future Appointments Appointment Date:08/11/2024 02:40:00 PM Scheduled Provider:Romeo Chaidez DO Location:[facility] Appointment Type: Open Future Scheduled TestsVitamin D 25 Hydroxy 10/07/23CT Chest, Low Dose Screening 05/18/24 [facility] Evaluation + Plan note Future Appointments Appointment Date:08/11/2024 02:40:00 PM Scheduled Provider:Romeo Chaidez DO Location:[facility] Appointment Type: Open Future Scheduled TestsVitamin D 25 Hydroxy 10/07/23 [facility] Evaluation + Plan note Future Appointments Appointment Date:11/10/2024 04:00:00 PM Scheduled Provider:Romeo Chaidez DO Location:[facility] Appointment Type: Open Future Scheduled TestsVitamin D 25 Hydroxy 10/07/23 [facility] Evaluation + Plan note Future Appointments Appointment Date:11/10/2024 04:00:00 PM Scheduled Provider:Romeo Chaidez DO Location:[facility] Appointment Type: Open [facility] Evaluation note Diagnosis Encounter for cosmetic surgery- Primary Other plastic surgery for unacceptable cosmetic appearance [facility] Encounter for cosmetic surgery- Primary Other plastic surgery for unacceptable cosmetic appearance [facility] Diagnosis Onset Date Resolution Status Menorrhagia, premenopausal a [place] [facility] Work Phone: Evaluation note* Diagnosis Elective procedure for unacceptable cosmetic appearance- Primary Other plastic surgery for unacceptable cosmetic appearance [facility] Encounter for cosmetic surgery- Primary Other plastic surgery for unacceptable cosmetic appearance [facility] Diagnosis Encounter for cosmetic procedure- Primary [facility] Diagnosis Intractable chronic migraine without aura and without status migrainosus (CMS/HCC)- [facility] N[facility] No data available for this section [facility] No data available for this section [facility] No data available for this section [facility] Chief Complaint and Reason for Visit Chief [...] or prosecute any alcohol or drug abuse patient.[facility] the event this information is protected by the Federal Confidentiality of Alcohol and Drug Abuse Patient Records regulations: The Federal rules restrict any use of the information to criminally investigate or prosecute any alcohol or drug abuse patient.[facility] the event this information is protected by the Federal Confidentiality of Alcohol and Drug Abuse Patient Records regulations: The Federal rules restrict any use of the information to criminally investigate or prosecute any alcohol or drug abuse patient.[facility] Hospital[facility] the event this information is protected by the Federal Confidentiality of Alcohol and Drug Abuse Patient Records regulations: The Federal rules restrict any use of the information to criminally investigate or prosecute any alcohol or drug abuse patient.[facility] Hospital[facility] the event this information is protected by the Federal Confidentiality of Alcohol and Drug Abuse Patient Records regulations: The Federal rules restrict any use of the information to criminally investigate or prosecute any alcohol or drug abuse patient.[facility] Hospital[facility] the event this information is protected by the Federal Confidentiality of Alcohol and Drug Abuse Patient Records regulations: The Federal rules restrict any use of the information to criminally investigate or prosecute any alcohol or drug abuse patient.[facility] Hospital[facility] the event this information is protected by the Federal Confidentiality of Alcohol and Drug Abuse Patient Records regulations: The Federal rules restrict any use of the information to criminally investigate or prosecute any alcohol or drug abuse patient.[facility] Reason for Visit (unrecogniz ed section and content) Reason Comments Established Patient Reason Comments Consult Reason Comments Follow Up Reason Comments Procedure Reason Onset Date Comments Refill Request 12/04/2022 Reason Comments Plastic Surg Skin Care Pt purchased Obag i Clear 4% from [facility]/mailed. Reason Comments Procedure Laser tx Reason Comments Botulinum Toxin Injection Care Teams (unrecognized sec tion and content) Rn Provider Relations Relationship Specialty Start Date End Date SemajlázaroVarun weaver Tomás PCP - General Family Practice 05/20/17 Rn Provider Relations Relationship Specialty Start Date End Date AstoneloiseVarun [...] Dates VERA Piña Primary Care Provider Active Rn Provider Relations Relationship Specialty Start Date End Date AstondominickVarun pierre PCP - General Family Medicine 05/20/17 Rn Provider Relations Relationship Specialty Start Date End Date AstondominickVarun pierre PCP - General Family Medicine 05/20/17 Rn Provider Relations Relationship Specialty Start Date End Date Varun Card PCP - General Family Medicine 05/20/17 Rn Provider Relations Relationship Specialty Start Date End Date Romeo Chaidez DO [address] [place] [address] PCP - General Family Medicine 09/18/23 Rn Provider Relations Relationship Specialty Start Date End Date Romeo Chaidez [address] [place] [address] PCP - General Family Medicine 09/18/23 INFORMATION SOURCE (unrecogn ized section and content) DATE CREATED AUTHOR 12/07/2022 [facility] DATE CREATED AUTHOR AUTHOR'S ORGANIZ ATION 03/13/2023 [facility] DATE CREATED AUTHOR AUTHOR'S ORGANIZ ATION 02/07/2024 [facility] DATE CREATED AUTHOR AUTHOR'S ORGANIZ ATION 08/21/2024 [facility] DATE CREATED AUTHOR AUTHOR'S ORGANIZ ATION 08/28/2024 [facility] DATE CREATED AUTHOR AUTHOR'S ORGANIZ ATION 09/10/2024 [facility] DATE CREATED AUTHOR AUTHOR'S ORGANIZ ATION 09/16/2024 [facility] FOR RECORDS PERTAINING TO PATIENTS WHO ARE [...] BE BASED ON THE PRIMARY CLINICAL RECORDS. [employer] provides no warranty or guarantee of the accuracy or completeness of information in this document.
[2024-09-17] MEDS: LACTATED RINGER'S SOLUTION 1,000 ML 50 ML IV (09:17)
[2024-09-17] MEDS: VANCOMYCIN HCL 1,000 MG in 0.9 % SODIUM CHLORIDE 250 ML 250 MG IV ×2 (09:23→15:36)
--- NOTE | 2024-09-17 09:42 | P.ON_ITS ---
Surgery Operative Note Operative Note Procedure Date: 09/17/24 Time Out Performed: yes Pre-op Diagnosis: 1. ?C5-C6 cervical stenosis with radiculopathy. 2. ?C5-C6 degenerative disc disease. 3. ?Obesity, BMI of 30.9 Procedures performed: 1. ?C5-C6 anterior cervical diskectomy and fusion with decompression and stabilization of spinal cord and nerve roots. 2. ?C5-C6 Saint Thomas-C stand alone cage with 12-mm screws, Spinal Elements Anesthesia: GETA Primary Surgeon: Warner Langford Complications: None Estimated blood loss (mL): 20 Findings: None Specimens: None Drains: MADISON x 1 Indications for Procedures: INDICATIONS: ?This is a 48-year-old female with refractory neck and arm pain from cervical stenosis primarily at C5 through C6. ?Patient had tried and failed conservative therapy including medication management and physician directed home exercises. ?Due to the persistence of symptoms and reduction in ADLs, patient elected surgical treatment. Patient therefore understood the indications for the surgery as well as risks, benefits, and alternatives. ?These risks included, but are not limited to, paralysis, infection, dural tear, hematoma, nerve root injury, nonunion, permanent speech and swallowing disturbances, DVT/PE, stroke, GA, etc. All questions were answered and informed consent was obtained. Detailed description of Procedure: OPERATIVE PROCEDURE: ?The patient was taken to the operating room by Anesthesiology Service and had satisfactory general anesthesia. ?A first- generation cephalosporin was given within 1 hour of surgical incision, 2 g of cefazolin was given IV. ?Venous thromboembolic prophylaxis was performed with sequential devices. ?The patient was then positioned supine on a standard OR table, occiput in a doughnut. Neck extended well within the means of what can be tolerated neurologically. The anterior neck was then prepped and draped entirely in the usual sterile fashion. Before incision, a formal time-out was taken per protocol. ?We next took a left- sided Mcclure-Whatley approach to the anterior cervical spine. ?A vertical incision was made in line with the skin crease. The platysma was divided in line with this incision. ?Blunt dissection was then proceeded medial to the sternocleidomastoid and carotid sheath. The omohyoid was divided.?The carotid artery was palpated and retracted laterally.? The anterior cervical spine was visualized and a localization needle was placed in the disc space and intraoperative radiographic localization of level was confirmed. ?We then elevated the longus colli from C5 through C6. Satisfied with the exposure and confirmation of level, we placed the self- retaining retractor at C5-C6. We then began complete diskectomy with a variety of curettes from uncus to uncus. Bilateral endplate decortications were then performed with a high-speed tita going back to the PLL. ?The PLL was then resect ed, incised in the midline going to neural foramina bilaterally. ?This was done until we could see the exiting portion of the C6 nerve roots. This thereby totally decompressed the neural elements. ?Satisfied with this, we then achieved hemostasis and sized the interspace. ?A size 7-mm Saint Thomas-C stand alone cage was found to be appropriate. The cage was packed with DBM and impacted into position. It was then stabilized with true fixation using 12-mm screws, one superior and one inferior. Excellent torque insertion achieved. Locking mechanism engaged. Final x-rays were taken demonstrating good position of the spine and all of the implants. Satisfied with this, we then achieved hemostasis. ?We then copiously irrigated the wound. ?We then inserted a MADISON drain through a separate stab incision. ?The wound was then closed in layers with a single running 2-0 Vicryl suture. ?A 4-0 Monocryl was used for the skin. The skin edges were sealed with Dermabond. ?Telfa was placed over the incision. A dry sterile dressing was applied. Cervical collar secured into place. ?The patient was then returned to the hospital bed, extubated, and taken to the recovery room in stable condition. Spinal cord monitoring remained stable throughout the operation. PRINTED CIRCUIT BOARDS PLASMA ETCHER: ?Poncho Pugh PA-C. Poncho Pugh PA-C, assisted throughout the procedure with positioning, draping, retraction, wound closure, and dressing application POSTOPERATIVE CARE: ?The patient will be recovered in PACU and then a regular nursing floor. ?Once the drainage is low and pain is under control, patient will be discharged home per clinical indication. Patient will follow up in the office in six weeks. ?At that time, AP and lateral x-rays of the cervical spine will be obtained to assess instrumentation and fusion. MODIFIER 22: ?Due to the patient's BMI over 30, modifier 22 applied due to the patient's case taking 50% longer due to poor visualization and orientation. ? Veneer Taping Machine Operator: Poncho Pugh
[2024-09-17] MEDS: HYDROMORPHONE HCL 0.5 MG/0.5 ML SYRINGE IV (11:28)
[2024-09-17] MEDS: MORPHINE SULFATE 2 MG/ML SYRINGE IV ×3 (13:02→20:51)
[2024-09-17] MEDS: 0.9 % SODIUM CHLORIDE 1,000 ML 100 ML IV (13:03)
--- NOTE | 2024-09-17 13:44 | SWNOTE1 ---
Case management spoke with pt and family in room. Pt does not need Home Health services at the time of discharge. Has plenty of support.
--- NOTE | 2024-09-17 13:47 | CM.NOTE ---
Discussed with pt discharge planning and HH services, pt refuses any HH services at this time. Pt states her sister lives across the street and will be able to assist her. Pt also has multiple family members at bedside voicing pt having plenty of assistance at discharge. Discussed with pt if she would change her mind she can speak with RN taking care of her to set-up or reach out to PCP after discharge. Pt verbalizes understanding.
--- NOTE | 2024-09-17 17:45 | P.PN_ITS ---
Progress Note: Subjective Subjective Interval history: Consulted for postop management, medical management. Patient without significant complaint currently. Pain feels different than he did before surgery. She was recently notified of a positive culture result, on a urinalysis. Exam Constitutional Vital Signs, click to edit/add: Last Vital Signs Temp 98 F 09/17/24 15:24 Pulse 83 09/17/24 15:24 Resp 18 09/17/24 15:24 BP 150/93 H 09/17/24 15:24 Pulse Ox 96 09/17/24 16:00 O2 Del Method Room Air 09/17/24 15:24 Documenting provider has reviewed patient's vital signs: yes Common normals: no apparent distress Chest Common normals: inspection of chest normal Respiratory Common normals: normal respiratory effort and no retractions Cardio Common normals: regular rate and regular rhythm GI Common normals: Normal to inspection, nondistended, normoactive bowel sounds present, soft to palpation and non-tender Extremity Common normals: normal to inspection and no clubbing, cyanosis or edema Progress Note: A&P Assessment and Plan (1) Constipation: (2) Pyelonephritis: (3) Anxiety: (4) Depression: (5) Sleep apnea: (6) Chronic obstructive pulmonary disease: (7) Migraine: (8) ADD (attention deficit disorder): (9) IBS (irritable bowel syndrome): (10) GERD (gastroesophageal reflux disease): (11) Fibromyalgia: (12) Cervical stenosis of spine: Plan Admission findings: Patient mated status post surgical intervention for cervical spine stenosis. Admission status: Patient mated to surgical outpatient. If maintaining hospitalization, will change to Cervical spine stenosis-status post surgery-plan per Dr. [place] Acute UTI secondary to E. coli infection-will use IV antibiotics with risk of bacteremia and recent surgical intervention Constipation-MiraLAX ADHD-continue with home medications Depression-continue with home medications Neuropathy-continue with home medications Generalized anxiety disorder-continue with home medications Hypomagnesemia-continue supplementation Migraines-continue with as needed Nurtec Mild leukocytosis preadmission testing-repeat lab in a.m. Hypertension-as needed hydralazine Leukocytosis-possibly related to acute UTI-repeat lab in a.m. Admission status: Patient admitted to the surgical outpatient setting-if staying an additional midnight, medically necessary treatment will thus span 2 midnights and will be changed to inpatient status
[2024-09-17] MEDS: ACETAMINOPHEN 500 MG TABLET 1000 MG PO (20:51)
[2024-09-17] MEDS: FLUOXETINE HCL 20 MG CAPSULE PO (20:51)
[2024-09-17] MEDS: SENNOSIDES/DOCUSATE SODIUM 1 TAB TABLET PO (20:51)
[2024-09-17] MEDS: DOCUSATE SODIUM 100 MG CAPSULE PO (20:52)
[2024-09-17] MEDS: CEFTRIAXONE 1,000 MG in 0.9 % SODIUM CHLORIDE 50 ML 100 MG IV (20:52)
[2024-09-17] MEDS: OXYCODONE HCL 5 MG TABLET PO (20:52)
[2024-09-17] MEDS: CYCLOBENZAPRINE HCL 10 MG TABLET PO (20:52)
[2024-09-17] MEDS: GABAPENTIN 100 MG CAPSULE PO (20:52)
[2024-09-17] MEDS: POLYETHYLENE GLYCOL 3350 17 GM POWDER PACKET PO (20:53)
[2024-09-17] MEDS: 0.9 % SODIUM CHLORIDE 10 ML SYRINGE - SALINE FLUSH IV (21:00)
[2024-09-17] MEDS: HYDROXYZINE HCL 10 MG TABLET PO (21:06)
[2024-09-18] VITALS (11 sets, daily range): BP systolic 149–178; BP diastolic 92–106; PULSE 68–80; TEMP 36.4–37.2; O2SAT 93–98
[2024-09-18] MEDS: VANCOMYCIN HCL 1,000 MG in 0.9 % SODIUM CHLORIDE 250 ML 250 MG IV (00:43)
[2024-09-18] MEDS: LACTATED RINGER'S SOLUTION 1,000 ML 50 ML IV (02:14)
[2024-09-18] MEDS: ACETAMINOPHEN 500 MG TABLET 1000 MG PO (05:37)
[2024-09-18] MEDS: OXYCODONE HCL 5 MG TABLET PO (05:37)
[2024-09-18] MEDS: MORPHINE SULFATE 2 MG/ML SYRINGE IV (05:37)
[2024-09-18 06:53] LABS: Basophils Absolute Auto 0.1 10^3/uL (0.0-0.1); Basophils Percent Auto 0.3 % (0.2-2.0); Eosinophils Absolute Auto 0.1 10^3/uL (0.0-0.7); Eosinophils Percent Auto 0.3 % (0.9-7.0); Hematocrit 34.1 % (36.0-48.0); Hemoglobin 11.3 g/dL (12.0-16.0); Immature Granulocytes Abs Auto 0.06 10^3/uL (0.00-0.03); Immature Granulocytes Pct Auto 0.4 % (0.0-0.5); Lymphocytes Absolute Auto 2.7 10^3/uL (1.2-3.8); Lymphocytes Percent Auto 17.9 % (20.5-60.0); Mean Corpuscular HGB Conc 33.1 g/dL (29.9-35.2); Mean Corpuscular Volume 87.4 fL (81.0-99.0); Mean Platelet Volume 9.1 fL (9.5-13.5); Monocytes Absolute Auto 0.9 10^3/uL (0.3-0.8); Monocytes Percent Auto 6.2 % (1.7-12.0); Neutrophils Absolute Auto 11.1 10^3/uL (1.4-6.5); Neutrophils Percent Auto 74.9 % (43.0-75.0); Platelet Count 430 10^3/uL (150-450); Red Cell Distribution Width 12.5 % (11.0-15.0); White Blood Count 14.8 10^3/uL (4.0-11.0)
[2024-09-18 07:05] LABS: Anion Gap 14.5; Calcium 8.5 mg/dL (8.5-10.1); Chloride 108 mmol/L (98-107); Estimated GFR (African America >60 (>=60 mL/min/1.73m^2); Estimated GFR (Non-African Ame >60 (>=60 mL/min/1.73m^2); Glucose 107 mg/dL (74-106); Potassium 3.5 mmol/L (3.5-5.1); Sodium 143 mmol/L (136-145)
--- NOTE | 2024-09-18 07:52 | PM.PN ---
Progress Note: Subjective Subjective Interval history: Patient is POD #1 from c5/c6 anterior Cervical discectomy and fusion. Patient without significant complaint currently. Pain is controlled, little output from [place] drain, no fevers or chills. Was taking Keflex for UTI, has been getting Rocephin here. Exam Narrative Exam Narrative: General: Patient is alert, and oriented to person, place and time with normal affect, proper hygiene, patient is currently in C-Collar Skin: no visible rashes, or ulcers Head: atraumatic, acephalic Eyes: PERRLA, no nystagmus present, conjunctiva clear, no scleral icterus Heart: Normal rate and rhythm, no murmurs/rubs/gallops Lungs: no audible wheezes, crackles and normal breath sounds all lung magana Abdomen: Normal audible bowel sounds, no distension, No palpable masses, no organomegaly, no rebound/guarding/ or rigidity Musculoskeletal: no swelling bilateral lower extremities Neuro: CN II-X grossly intact Constitutional Vital Signs, click to edit/add: Last Vital Signs Temp 99.0 F 09/18/24 00:43 Pulse 80 09/18/24 06:03 Resp 18 09/18/24 06:03 BP 172/100 H 09/18/24 06:03 Pulse Ox 95 09/18/24 06:03 O2 Del Method Room Air 09/18/24 06:03 Progress Note: Objective Labs Labs: Short CBC 09/18/24 Range/Units 06:32 WBC 14.8 H (4.0-11.0) 10^3/uL Hgb 11.3 L (12.0-16.0) g/dL Hct 34.1 L (36.0-48.0) % Plt Count 430 (150-450) 10^3/uL BMP 09/18/24 06:32 Sodium 143 Potassium 3.5 Chloride 108 H Carbon Dioxide 24.0 BUN 6.0 L Creatinine 0.60 Glucose 107 H Calcium 8.5 Progress Note: A&P Assessment and Plan (1) Cervical stenosis of spine: Assessment and Plan: POD #1, doing well. Discharge today per primary Ortho Surgery team along with pain control and follow up. (2) Constipation: Assessment and Plan: continue PRN meds Qualifiers: Constipation type: drug induced constipation Qualified Code(s): K59.03 - Drug induced constipation (3) Pyelonephritis: Assessment and Plan: continue rocephin, will be discharged home on keflex 500mg BID x 7 days (4) Anxiety: Assessment and Plan: continue home meds (5) Depression: Assessment and Plan: continue home meds Qualifiers: Depression Type: unspecified Qualified Code(s): F32.A - Depression, unspecified (6) Sleep apnea: Qualifiers: Sleep apnea type: unspecified type Qualified Code(s): G47.30 - Sleep apnea, unspecified (7) Chronic obstructive pulmonary disease: Qualifiers: COPD type: unspecified COPD Qualified Code(s): J44.9 - Chronic obstructive pulmonary disease, unspecified (8) Migraine: Qualifiers: Migraine type: unspecified Intractability: not intractable Status migrainosus presence: without status migrainosus Qualified Code(s): G43.909 - Migraine, unspecified, not intractable, without status migrainosus (9) ADD (attention deficit disorder): Qualifiers: Attention deficit type: unspecified type Qualified Code(s): F98.8 - Other specified behavioral and emotional disorders with onset usually occurring in childhood and adolescence (10) IBS (irritable bowel syndrome): Qualifiers: Irritable bowel syndrome type: unspecified Qualified Code(s): K58.9 - Irritable bowel syndrome, unspecified (11) GERD (gastroesophageal reflux disease): Qualifiers: Esophagitis presence: without esophagitis Qualified Code(s): K21.9 - Gastro-esophageal reflux disease without esophagitis (12) Fibromyalgia: Plan Patient to be discharged home today per primary surgical team, complete Keflex for UTI.
[2024-09-18] MEDS: MAGNESIUM OXIDE 400 MG TABLET 200 MG PO (09:52)
[2024-09-18] MEDS: POLYETHYLENE GLYCOL 3350 17 GM POWDER PACKET PO ×2 (09:52→09:59)
[2024-09-18] MEDS: phenoL 88 SPRAY/177 ML BOTTLE MM (09:52)
[2024-09-18] MEDS: GABAPENTIN 100 MG CAPSULE PO (09:52)
[2024-09-18] MEDS: CYCLOBENZAPRINE HCL 10 MG TABLET PO (09:52)
[2024-09-18] MEDS: SENNOSIDES/DOCUSATE SODIUM 1 TAB TABLET PO (09:52)
[2024-09-18] MEDS: DOCUSATE SODIUM 100 MG CAPSULE PO (09:52)
[2024-09-18] MEDS: BISACODYL 5 MG TABLET PO (09:52)
[2024-09-18] MEDS: 0.9 % SODIUM CHLORIDE 10 ML SYRINGE - SALINE FLUSH IV (09:53)
--- NOTE | 2024-09-18 12:19 | P.ORPN_ITS ---
Progress Note: A&P Assessment and Plan (1) Constipation: (2) Pyelonephritis: (3) Anxiety: (4) Depression: (5) Sleep apnea: (6) Chronic obstructive pulmonary disease: (7) Migraine: (8) ADD (attention deficit disorder): (9) IBS (irritable bowel syndrome): (10) GERD (gastroesophageal reflux disease): (11) Fibromyalgia: (12) Cervical stenosis of spine: Plan Patient is postop day #1 C5-7 ACDF -10 mL output from cervical drain in almost 24 hours, drain removed at bedside, Tegaderm in place. Leave Tegaderm in place for 24 hours then can dress wound with 4 x 4 and tape, change daily or as needed. -Wear cervical collar when out of bed for the next 2 weeks, then can discontinue. -Follow-up with Dr. Novak in the office in 6 weeks. Subjective Subjective Principal diagnosis: S/p C5-6 ACDF Interval history: Patient is postop day #1 status post C5-6 ACDF. Patient states that her pain is controlled. She does still feel some tingling in her bilateral fingers. Patient denies any bowel or bladder complaints. Patient does note that she has had some swelling in her legs and arms even prior to surgery. She states she cannot make a full fist given her swelling in her hands. She is being treated for a UTI found on preop testing. Exam Narrative Exam Narrative: On exam patient is sitting up at the end of her bed, wearing her c-collar, age- appropriate, alert and oriented x 3. On inspection dressing is clean dry and intact, drain in place. 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 Sensation intact with light touch distally. Constitutional Vital Signs, click to edit/add: Last Vital Signs Temp 99.0 F 09/18/24 00:43 Pulse 68 09/18/24 08:38 Resp 18 09/18/24 08:38 BP 178/106 H 09/18/24 08:38 Pulse Ox 98 09/18/24 11:12 O2 Del Method Room Air 09/18/24 11:12
== END 2024-09-18 13:11 | disposition home or self-care (01) ==
LOC: SURGOUT 08:45 → MS 12:26
PROVIDERS: Family Medicine; Admitting Provider Orthopaedic Surgery Orthopaedic Surgery of the Spine; Visit Provider Family Medicine
PROC: (CPT 600; principal; 2024-09-17 09:30)
DX: M50.122 Cervical disc disorder at C5-C6 level with radiculopathy (principal); M48.02 Spinal stenosis, cervical region; E66.9 Obesity, unspecified; Z68.30 Body mass index [BMI] 30.0-30.9, adult; K21.9 Gastro-esophageal reflux disease without esophagitis; B96.20 Unspecified Escherichia coli [E. coli] as the cause of diseases classified elsewhere; K59.00 Constipation, unspecified; F90.9 Attention-deficit hyperactivity disorder, unspecified type; F32.A Depression, unspecified; G62.9 Polyneuropathy, unspecified; F41.1 Generalized anxiety disorder; G43.909 Migraine, unspecified, not intractable, without status migrainosus; E83.42 Hypomagnesemia; I10 Essential (primary) hypertension; K58.9 Irritable bowel syndrome, unspecified; G47.30 Sleep apnea, unspecified; M79.7 Fibromyalgia; J44.9 Chronic obstructive pulmonary disease, unspecified; N10 Acute pyelonephritis; D72.829 Elevated white blood cell count, unspecified; Z79.899 Other long term (current) drug therapy
CPT/HCPCS: 22551; 22845; 36415; 72040; 80048; 85025; 94761; 95861; 95938; C1713; J0330; J0696; J1100; J1171; J2250; J2270; J2405; J2704; J3010; J3370

== ENCOUNTER 2024-09-20 12:17 | Emergency (ER) | payer MEDICAID, SELFPAY ==
[2024-09-20 12:25] VITALS: BP 141/88; PULSE 86; TEMP 36.8; O2SAT 98; BMI 30.9
--- NOTE | 2024-09-20 12:40 | US_ITS ---
[facility] [id number] Patient Name: NANCY NICOLE MRN: [id number] date: 1975 Sex: F Assigned Patient Location: ER Current Patient Location: ER Accession/Order Number: [id number] Exam Date: 09/20/2024 13:00 Report Date: 09/20/2024 14:22 At the request of: EMILY HICKS Procedure: US venous doppler LE LT CLINICAL DATA: Leg swelling. PROCEDURE: Left lower extremity venous duplex ultrasound TECHNIQUE: Quiñones-scale, color flow, and waveform spectral analysis was performed of the left lower extremity. FINDINGS: The left common femoral, profunda femoral, femoral, and popliteal veins were compressible. The saphenous vein was compressible. No venous thrombosis was seen. The veins fill with color Doppler. Augmentation was normal. US/US venous doppler LE LT IMPRESSION: 1. No acute lower extremity deep venous thrombosis. 2. No superficial venous thrombosis. Electronically authenticated by: John FARAH Date: 09/20/2024 14:22
--- NOTE | 2024-09-20 12:43 | ED.GENADUL1 ---
HPI HPI - General Adult General Chief complaint: Extremity Problem, Nontraumatic Stated complaint: LOWER EXREMITY SWELLING/PAIN Time Seen by Provider: 09/20/24 12:36 Source: patient Mode of arrival: Wheelchair Limitations: no limitations History of Present Illness HPI narrative: 48-year-old female presents for swelling throughout her entire left leg. The right leg is not swollen. She appears to have had this for nearly 2 weeks. She had surgery on her neck a few days ago but had the swelling before then. She does not complain of chest pain or shortness of breath or any swelling in the right leg. She has never had a DVT. Related Data Home Medications ?Medication ?Instructions ?Recorded ?Confirmed dextroamphetamine-amphetamine ER 20 mg PO DAILY 12/28/23 09/17/24 20 mg 24hr capsule,extend release (Adderall XR) fluoxetine 20 mg capsule 20 mg PO QPM 12/28/23 09/17/24 ketorolac 10 mg tablet 10 mg PO BID PRN pain 12/28/23 09/17/24 cyclobenzaprine 10 mg tablet 10 mg PO BID 09/03/24 09/17/24 dextroamphetamine-amphetamine ER 10 mg PO QNOON 09/03/24 09/17/24 10 mg 24hr capsule,extend release dupilumab 300 mg/2 mL subcutaneous 300 mg subcut .[id number] 09/03/24 09/17/24 pen injector (Dupixent) estradiol 0.05 mg/24 hr semiweekly 1 patch transdermal .every 3 days 09/03/24 09/17/24 transdermal patch (Leonarda) gabapentin 100 mg capsule 100 mg PO Q12H 09/03/24 09/17/24 hydroxyzine HCl 10 mg tablet 10 mg PO .QHS 09/03/24 09/17/24 magnesium 200 mg tablet 200 mg PO DAILY 09/03/24 09/17/24 rimegepant 75 mg disintegrating 75 mg PO DAILY PRN migraine 09/03/24 09/17/24 tablet (Nurtec ODT) headache meloxicam 7.5 mg tablet 7.5 mg PO .QD 09/17/24 09/17/24 Previous Rx's ?Medication ?Instructions ?Recorded cephalexin 500 mg capsule 500 mg PO Q6H 7 days #28 caps 09/12/24 docusate sodium 100 mg capsule 100 mg PO BID #14 caps 09/12/24 (Colace) ondansetron 4 mg disintegrating 4 mg PO Q8H PRN nausea and 09/12/24 tablet vomiting 4 days #16 tabs oxycodone-acetaminophen 5 mg-325 1 tab PO Q6H PRN pain 3 days #12 09/12/24 mg tablet (Percocet) tabs polyethylene glycol 3350 17 17 g PO DAILY PRN constipation 09/12/24 gram/dose oral powder (Miralax) #238 grams Allergies Allergy/AdvReac Type Severity Reaction Status Date / Time adhesive tape Allergy Intermediate Rash Verified 09/20/24 12:30 Penicillins Allergy Intermediate Rash Verified 09/20/24 12:30 sumatriptan (From Imitrex) Allergy Intermediate Unknown Verified 09/20/24 12:30 promethazine (From Phenergan) Allergy Unknown Verified 09/20/24 12:30 Opioid HPI Opioid Management Most Recent Opioid Data: Last Pain Scale 5 09/20/24 12:43 09/20/24 Last Pain Assessment 09/18/24 13:05 Review of Systems ROS Narrative A ten point review of systems is negative except as noted above. [facility] Medical History (Updated 09/20/24 @ 14:44 by Omi Asencio MD) Anemia ?D64.9 - Anemia, unspecified (ICD-10) Anxiety ?F41.9 - Anxiety disorder, unspecified (ICD-10) Depression ?F32.A - Depression, unspecified (ICD-10) Sleep apnea ?G47.30 - Sleep apnea, unspecified (ICD-10) Chronic obstructive pulmonary disease ?J44.9 - Chronic obstructive pulmonary disease, unspecified (ICD-10) Migraine ?G43.909 - Migraine, unspecified, not intractable, without status migrainosus (ICD-10) Narcolepsy ?G47.419 - Narcolepsy without cataplexy (ICD-10) ADD (attention deficit disorder) ?F98.8 - Other specified behavioral and emotional disorders with onset usually occurring in childhood and adolescence (ICD-10) Constipation ?K59.00 - Constipation, unspecified (ICD-10) Dyspnea on exertion ?R06.09 - Other forms of dyspnea (ICD-10) Abdominal adhesions ?K66.0 - Peritoneal adhesions (postprocedural) (postinfection) (ICD-10) Bowel obstruction ?K56.609 - Unspecified intestinal obstruction, unspecified as to partial versus complete obstruction (ICD-10) Lipoma ?D17.9 - Benign lipomatous neoplasm, unspecified (ICD-10) Ovarian cyst ?N83.209 - Unspecified ovarian cyst, unspecified side (ICD-10) IBS (irritable bowel syndrome) ?K58.9 - Irritable bowel syndrome, unspecified (ICD-10) GERD (gastroesophageal reflux disease) ?K21.9 - Gastro-esophageal reflux disease without esophagitis (ICD-10) Fibromyalgia ?M79.7 - Fibromyalgia (ICD-10) Endometriosis ?N80.9 - Endometriosis, unspecified (ICD-10) Neck pain ?M54.2 - Cervicalgia (ICD-10) Cervical stenosis of spine ?M48.02 - Spinal stenosis, cervical region (ICD-10) Surgical History (Updated 09/17/24 @ 09:08 by Virgie Valenzuela RN) H/O sinus surgery ?Z98.890 - Other specified postprocedural states (ICD-10) History of breast augmentation ?Z98.82 - Breast implant status (ICD-10) H/O abdominoplasty ?Z98.890 - Other specified postprocedural states (ICD-10) H/O abdominal surgery ?Z98.890 - Other specified postprocedural states (ICD-10) History of intestinal surgery ?Z98.890 - Other specified postprocedural states (ICD-10) History of appendectomy ?Z90.49 - Acquired absence of other specified parts of digestive tract (ICD-10) History of hysterectomy ?Z90.710 - Acquired absence of both cervix and uterus (ICD-10) S/P excision of lipoma ?Z98.890 - Other specified postprocedural states (ICD-10) ?Z86.018 - Personal history of other benign neoplasm (ICD-10) Family History (Updated 09/03/24 @ 09:48 by Ansley Carmen NP) Other Alcoholism Anxiety Family history of cancer Family history of coronary artery disease Family history of diabetes mellitus Family history of hypertension Heart disease Mental health disorder Rheumatoid arthritis Social History (Updated 09/03/24 @ 09:38 by Ansely Carmen NP) Within the past year, how often did you have a drink containing alcohol: never Score interpretation: A score less than 3 is consistent with normal alcohol consumption. Smoking status: Current every day smoker What tobacco products do you use: cigarettes Packs per day: 1 Years smoked: 30 Smoking pack-years: 30.00 Non-prescribed substance use: cannabis (any form) Highest level of school completed/degree received: some college, no degree Little interest or pleasure in doing things: not at all Feeling down, depressed, or hopeless: not at all Exam Narrative Exam Narrative: Nurses note and vital signs reviewed and patient is not hypoxic. General: The patient appears well and in no apparent distress. Patient is resting comfortably on cart. Skin: Warm, dry, no pallor noted. There is no rash noted. Head: Normocephalic, atraumatic; surgical dressing present on her left neck Eye: Normal conjunctiva, no drainage Ears, Nose, Mouth, and Throat: oral mucosa is moist. Nares patent. Cardiovascular: Regular Rate and Rhythm Respiratory: Patient is in no distress, no accessory muscle use, lungs are clear to auscultation, no wheezing, rales or rhonchi GI: Soft and nontender Musculoskeletal: The left leg is swollen throughout its length. Dorsalis pedis pulse 2+. No pallor. Neurological: A&O, normal speech Psychiatric: Cooperative Constitutional Vital Signs, click to edit/add: Last Vital Signs Temp 98.3 F 09/20/24 12:25 Pulse 86 09/20/24 12:25 Resp 18 09/20/24 12:25 BP 141/88 09/20/24 12:25 Pulse Ox 98 09/20/24 12:25 O2 Del Method Room Air 09/20/24 12:25 Course Vital Signs Vital signs: Vital Signs Temperature 98.3 F 09/20/24 12:25 Pulse Rate 86 09/20/24 12:25 Respiratory Rate 18 09/20/24 12:25 Blood Pressure 141/88 09/20/24 12:25 Pulse Oximetry 98 09/20/24 12:25 Oxygen Delivery Method Room Air 09/20/24 12:25 Temperature 98.3 F 09/20/24 12:25 Pulse Rate 86 09/20/24 12:25 Respiratory Rate 18 09/20/24 12:25 Blood Pressure 141/88 09/20/24 12:25 Pulse Oximetry 98 09/20/24 12:25 Oxygen Delivery Method Room Air 09/20/24 12:25 Medical Decision Making MDM Narrative Medical decision making narrative: Left leg Doppler shows no DVT and she is able to be discharged home. She was recommended rest and elevation. She will follow-up with her doctor if there is no improvement. Treatment diagnosis and follow-up were discussed with the patient. Differential Diagnosis Differential Diagnosis: Superficial thrombophlebitis, DVT Imaging Data Left leg Doppler: Radiologist's impression: ITS Impressions Venous Doppler Study 09/20/24 12:40 IMPRESSION: 1. No acute lower extremity deep venous thrombosis. 2. No superficial venous thrombosis. Electronically authenticated by: John FARAH Date: 09/20/2024 14:22 Discharge Plan Discharge Chief Complaint: Extremity Problem, Nontraumatic Clinical Impression: Left leg pain Patient Disposition: Home, Self-Care Time of Disposition Decision: 14:44 Condition: Good Mode of Transportation: Private Vehicle Prescriptions / Home Meds: No Action cyclobenzaprine 10 mg tablet 10 mg PO BID dextroamphetamine-amphetamine 10 mg capsule,extended release 24hr 10 mg PO QNOON Dupixent Pen 300 mg/2 mL pen injector 300 mg SUBCUT .g0amviv estradiol [Leonarda] 0.05 mg/24 hr patch semiweekly 1 patch transdermal .every 3 days gabapentin 100 mg capsule 100 mg PO Q12H hydroxyzine HCl 10 mg tablet 10 mg PO .QHS Nurtec ODT 75 mg tablet,disintegrating 75 mg PO DAILY PRN (Reason: migraine headache) magnesium 200 mg tablet 200 mg PO DAILY meloxicam 7.5 mg tablet 7.5 mg PO .QD cephalexin 500 mg capsule 500 mg PO Q6H 7 Days Qty: 28 0RF ondansetron 4 mg tablet,disintegrating 4 mg PO Q8H PRN (Reason: nausea and vomiting) 4 Days Qty: 16 0RF polyethylene glycol 3350 [Miralax] 17 gram/dose powder 17 g PO DAILY PRN (Reason: constipation) Qty: 238 0RF docusate sodium [Colace] 100 mg capsule 100 mg PO BID Qty: 14 0RF oxycodone-acetaminophen [Percocet] 5-325 mg tablet 1 tab PO Q6H PRN (Reason: pain) 3 Days Qty: 12 0RF dextroamphetamine-amphetamine [Adderall XR] 20 mg capsule,extended release 24hr 20 mg PO DAILY fluoxetine 20 mg capsule 20 mg PO QPM ketorolac 10 mg tablet 10 mg PO BID PRN (Reason: pain) Rx Instructions: MAX 2 DAYS PER WEEK Print Language: Japanese Instructions: Leg Pain (ED) Referrals: Physician,Non-Staff, MD [Primary Care Provider] - 1 week
[2024-09-20 14:46] VITALS: PULSE 76; O2SAT 99
== END 2024-09-20 14:54 | disposition home or self-care (01) ==
PROVIDERS: Emergency Provider Emergency Medicine
DX: M79.605 Pain in left leg (principal); Z98.890 Other specified postprocedural states; F17.210 Nicotine dependence, cigarettes, uncomplicated
CPT/HCPCS: 93971; 99284

== ENCOUNTER 2024-09-25 01:42 | Emergency (ER) | payer MEDICAID, SELFPAY ==
[2024-09-25] VITALS (18 sets, daily range): BP systolic 116–140; BP diastolic 79–100; PULSE 79–89; TEMP 37.2; O2SAT 92–100; BMI 30.9
--- OUTSIDE RECORDS SUMMARY | 2024-09-25 01:50 | XMS_ITS | CCD ---
Author Organization [facility] Care Team Providers Care Behavioral Consultant Name Role Phone Josy Isaacs Primary Care Physician Varun Card Primary Care Provider MD Prateek Hicks Attending Provider VERA Isaacs Primary Care Provider MD Gaurav Marr Attending Provider [phone] MD Prateek Hicks Admit Provider DO Brady [...] CHARLIE Attending Unavailable ILIANA BERMUDEZ Consulting Unavailable [facility] Primary Care Unavaila ble DIAB ., CHARLIE Consulting Unavailable MISCDR AU Admitting Unavailable MISC, DR AU Consulting Unavailable MISC, DR AU Attending Unavailable [facility] Primary Care Unavaila ble Romeo [...] Care Unavailable Bin Bello I Attending Unavailable Cromlrima ANDINO, Romeo Lopez Primary Care Unavailable Kashk, [...] Chaidez Admitting Unavailable Romeo Chaidez Attending Unavailable Rustam Arnett Attending Unavailable Rustam Arnett Attending Unavailable Allergies Allergy Classification Reported Allergen(s) Allergy Type Date of Onset Reaction(s) Facility Adhesive Tape (1 source) Adhesive Tape Substance Allergy Chemical burn [facility] Penicillins (antibiotic) (1 source) Penicillin; Translations: [penicillin] Drug Allergy Rash [facility] Serotonin-1b and Serotonin-1d Receptor Agonists (1 source) SUMAtriptan; Translations: [sumatriptan] Drug Allergy Eruption of skin (disorder) [facility] (20 sources) Adhesive Tape; Translations: [Tape] Drug allergy 2 Chemical burn, Rash, damon skin [facility] (20 sources) Penicillin; Translations: [penicillin] Drug Allergy Rash [facility] (20 sources) SUMAtriptan; Translations: [sumatriptan] Drug Allergy 2 Eruption of skin (disorder), Other [facility] (4 sources) Penicillins; Translations: [PENICILLINS] Propensity to adverse reactions [address] [facility] Work Phone: (11 sources) traMADol; Translations: [TRAMADOL] Drug Allergy 3 Rash, [facility] (3 sources) Promethazine Drug Allergy 2 body sweats [facility] (5 sources) Penicillins Propensity to adverse reactions [address] [facility] Work Phone: (1 source) Desonide Drug Allergy 5 [facility] Repository (2 sources) Levamisole; Translations: [Phenergan] Drug Allergy 0 [facility] (1 source) Penicillins Drug allergy (disorder) 5 [facility] (2 sources) Acetaminophen / oxyCODONE Drug Allergy 3 Rash [facility] (2 sources) Penicillins Drug Allergy 3 Other [facility] (2 sources) Fremanezumab-Vfrm Drug Allergy 3 Rash [facility] (2 sources) Wound Dressing Adhesive Drug Allergy 3 Other [facility] (1 source) Adhesive bandage; Translations: [Adhesive Bandage] Propensity to adverse reactions (disorder) [facility] (1 source) Latex; Translations: [Latex Allergy] Propensity to adverse reactions (disorder) [facility] Repository Medications Current Medications Medication Drug Class(es) Dates Sig (Normalized) Sig (Original) 200 actuat albuterol 0.09 mg/actuat dry powder inhaler (16 sources) beta2-Adrenergic Agonist Start: 11-26-2021 take 180 ug by inhalation every six hours albuterol 90 mcg/inh inhalation powder 180 mcg, 2 puff(s), Inhalation, q6hr, 1 EA, Refill(s) 1, [facility], 163, cm, 11/26/21 15:43:00 EST, Height/Length Dosing, 84.3, kg, 11/26/21 15:43:00 EST, Weight Dosing Start Date: 11/26/21 Status: Ordered albuterol 90 mcg/inh inhalation powder (2 sources) Start: 11-26-2021 take 180 ug by inhalation every six hours albuterol 90 mcg/inh inhalation powder 180 mcg, 2 puff(s), Inhalation, q6hr, 1 EA, Refill(s) 1, [facility] 163, cm, 11/26/21 15:43:00 EST, Height/Length Dosing, 84.3, kg, 11/26/21 15:43:00 EST, Weight Dosing Start Date: 11/26/21 Status: Ordered Amphetamine / Dextroamphetamine (4 sources) Central Nervous System Stimulant Start: 09-15-2023 Amphetamine-Dext roamphetamine (ADDERALL PO) 0 Refill(s) 09/15/2023 Active Start: 08-26-2022 take 1 capsule by [facility] once daily in the morning amphetamine-dextroamphetamine 10 mg oral capsule, extended release 10 mg, 1 cap(s), Oral, qAM, 30 cap(s), Refill(s) 0, [facility] #[id number], 163, cm, 08/26/22 16:42:00 EDT, Height/Length Dosing, 87.2, kg, 08/26/22 16:42:00 EDT, Weight Dosing Start Date: 08/26/22 Status: Ordered 24 hr amphetamine aspartate 2.5 mg / amphetamine sulfate 2.5 mg / dextroamphetamine saccharate 2.5 mg / dextroamphetamine sulfate 2.5 mg extended release oral capsule (20 sources) Central Nervous System Stimulant Start: 09-21-2024 take 1 capsule by mouth once daily in the morning Adderall XR 10 mg Cap-ER 10 mg = 1 cap(s), Oral, qAM, # 30 cap(s), Refills(s) 0, Pharmacy: [facility]/pharmacy #[id number], 163, cm, 09/21/24 10:03:00 EST, Height/Length Dosing, 82, kg, 09/21/24 10:03:00 EST, Weight Dosing Start Date: 09/21/24 Status: Ordered Start: 09-21-2024 take 1 capsule by mo uth once daily in the morning Adderall XR 20 mg Cap-ER 20 mg = 1 cap(s), Oral, qAM, # 30 cap(s), Refills(s) 0, Pharmacy: [facility]/pharmacy #[id number], 163, cm, 09/21/24 10:03:00 EST, Height/Length Dosing, 82, kg, 09/21/24 10:03:00 EST, Weight Dosing Start Date: 09/21/24 Status: Ordered Start: 08-24-2024 take 1 capsule by mo uth once daily in the morning Adderall XR 10 mg Cap-ER 10 mg = 1 cap(s), Oral, qAM, # 30 cap(s), Refills(s) 0, Pharmacy: [facility]/pharmacy #[id number], 163, cm, 08/11/24 14:51:00 EDT, Height/Length Dosing, 82, kg, 08/11/24 14:51:00 EDT, Weight Dosing Start Date: 08/24/24 Status: Ordered Start: 08-24-2024 take 1 capsule by mo uth once daily in the morning Adderall XR 20 mg Cap-ER 20 mg = 1 cap(s), Oral, qAM, # 30 cap(s), Refills(s) 0, Pharmacy: [facility]/pharmacy #[id number], 163, cm, 08/11/24 14:51:00 EDT, Height/Length Dosing, 82, kg, 08/11/24 14:51:00 EDT, Weight Dosing Start Date: 08/24/24 Status: Ordered Start: 07-21-2023 take 1 capsule by mo uth once daily in the morning Adderall XR 10 mg Cap-ER 10 mg = 1 cap(s), Oral, qAM, # 30 cap(s), Refills(s) 0, Pharmacy: [facility]/pharmacy #[id number], 163, cm, 05/18/24 11:42:00 EDT, Height/Length Dosing, 80.1, kg, 05/18/24 11:42:00 EDT, Weight Dosing Start Date: 07/27/24 Status: Ordered Start: 07-21-2023 take 1 capsule by mo uth once daily in the morning Adderall XR 20 mg Cap-ER 20 mg = 1 cap(s), Oral, qAM, # 30 cap(s), Refills(s) 0, Pharmacy: [facility]/pharmacy #[id number], 163, cm, 05/18/24 11:42:00 EDT, Height/Length Dosing, 80.1, kg, 05/18/24 11:42:00 EDT, Weight Dosing Start Date: 07/12/24 Status: Ordered Start: 05-13-2023 take 1 capsule by [facility] once daily in the morning Adderall XR 10 mg Cap-ER 10 mg = 1 cap(s), Oral, qAM, # 30 cap(s), Refills(s) 0, Pharmacy: [facility] #[id number], 163, cm, 04/04/23 12:54:00 EDT, Height/Length Dosing, 82, kg, 04/04/23 12:54:00 EDT, Weight Dosing Start Date: 05/13/23 Status: Ordered Start: 05-13-2023 take 1 capsule by [facility] once daily in the morning Adderall XR 20 mg Cap-ER 20 mg = 1 cap(s), Oral, qAM, # 30 cap(s), Refills(s) 0, Pharmacy: [facility] #[id number], 163, cm, 04/04/23 12:54:00 EDT, Height/Length Dosing, 82, kg, 04/04/23 12:54:00 EDT, Weight Dosing Start Date: 05/13/23 Status: Ordered Start: 04-04-2023 take 1 capsule by [facility] once daily in the morning Adderall XR 10 mg Cap-ER 10 mg = 1 cap(s), Oral, qAM, # 30 cap(s), Refills(s) 0, Pharmacy: [facility] #[id number], 163, cm, 04/04/23 12:54:00 EDT, Height/Length Dosing, 82, kg, 04/04/23 12:54:00 EDT, Weight Dosing Start Date: 04/04/23 Status: Ordered Start: 04-04-2023 take 1 capsule by mo uth once daily in the morning Adderall XR 20 mg Cap-ER 20 mg = 1 cap(s), Oral, qAM, # 30 cap(s), Refills(s) 0, Pharmacy: [facility] #[id number], 163, cm, 04/04/23 12:54:00 EDT, Height/Length Dosing, 82, kg, 04/04/23 12:54:00 EDT, Weight Dosing Start Date: 04/04/23 Status: Ordered Start: 12-30-2022 End: 01-29-2023 take 1 capsule by mouth once daily in the morning amphetamine-dextroamphetamine 20 mg Cap-ER 20 mg = 1 cap(s), Oral, qAM, Take one capsule daily in the morning., X 30 day(s), # 30 cap(s), Refills(s) 0, Pharmacy: [facility] #[id number], 163, cm, 12/30/22 10:28:00 EST, Height/Length Dosing, 85.4, kg, 12/30/22 10:28:00 EST, Weight Dosing Start Date: 12/30/22 Stop Date: 01/29/23 Status: Ordered Start: 12-30-2022 End: 01-29-2023 take 1 capsule by mouth once daily amphetamine-dextroamphetamine 10 mg Cap-ER 10 mg = 1 cap(s), Oral, Daily, Take one capsule daily in afternoon., X 30 day(s), # 30 cap(s), Refills(s) 0, Pharmacy: [facility] #[id number], 163, cm, 12/30/22 10:28:00 EST, Height/Length Dosing, 85.4, kg, 12/30/22 10:28:00 EST, Weight Dosing Start Date: 12/30/22 Stop Date: 01/29/23 Status: Ordered Start: 10-30-2022 End: 11-29-2022 take 1 capsule by mouth once daily in the morning Adderall XR 20 mg Cap-ER 20 mg = 1 cap(s), Oral, qAM, X 30 day(s), # 30 cap(s), Refills(s) 0, Pharmacy: [facility] #[id number], 163, cm, 10/30/22 10:02:00 EST, Height/Length Dosing, 86.1, kg, 10/30/22 10:02:00 EST, Weight Dosing Start Date: 10/30/22 Stop Date: 11/29/22 Status: Ordered Start: 08-26-2022 take 1 capsule by [facility] once daily in the morning amphetamine-dextroamphetamine 10 mg oral capsule, extended release 10 mg, 1 cap(s), Oral, qAM, 30 cap(s), Refill(s) 0, [facility] #[id number], 163, cm, 08/26/22 16:42:00 EDT, Height/Length Dosing, [...] injection once 200 Units, Intramuscular, Once, On [facility] 08/19/24 at 1445, For 1 dose, Charging [...] QID, # 40 cap(s), Refills(s) 0, Pharmacy: [facility] 163, cm, 04/28/22 11:34:00 EDT, Height/Length [...] 30 gram, Refill(s) 0, [facility] 163, cm, 02/25/22 16:04:00 EDT, Height/Length Dosing, 86.2, kg, 02/25/22 16:04:00 EDT, Weight Dosing Start Date: 02/25/22 Status: Ordered Start: 02-25-2022 clobetasol pro pionate 0.05% top oint 1 jyoti, Topical, Daily, 30 gram, Refill(s) 0, [facility] 163, cm, 02/25/22 16:04:00 EDT, Height/Length Dosing, 86.2, kg, 02/25/22 16:04:00 EDT, Weight Dosing Start Date: 02/25/22 Status: Ordered cyclobenzaprine hydrochloride 10 mg oral tablet (11 sources) Muscle Relaxant Start: 08-11-2024 take 1 tablet by mouth twice daily as needed for muscle spasms cyclobenzaprine 10 mg Tab 10 mg = 1 tab(s), Oral, BID, PRN for spasm, # 60 tab(s), Refills(s) 0, Pharmacy: [facility]/pharmacy #[id number], 163, cm, 08/11/24 14:51:00 EDT, Height/Length [...] 12:00am 2 ml dupilumab 150 mg/ml auto-injector (10 sources) Interleukin-4 Receptor alpha Antagonist Start: 12-23-2023 Dupixent Pre-filled Pen 300 mg/2 mL subcutaneous solution 300 mg, Refills(s) 0 Start Date: 12/23/23 Status: Ordered Start: 12-23-2023 inject 300 mg by sub cutaneous injection once Dupixent 300 MG/2ML injection Inject 300 mg under the skin 1 (one) time 12/23/2023 Active 84 hr estradiol 0.82879 mg/hr transdermal system (2 sources) Estrogen Start: 09-18-2023 estradiol (Vivelle-DOT) 0.05 MG/24HR Indications: Menorrhagia with regular cycle apply 1 patch two times a week as directed 8 patch 11 09/18/2023 Active Estradiol Patch 0.05 mg/24 hours twice weekly transdermal film, extended release (15 sources) Start: 08-26-2022 Estradiol Patc h 0.05 [...] Daily, # 90 cap(s), Refills(s) 4, Pharmacy: [facility] [id number], 163, cm, 05/18/24 11:42:00 EDT, Height/Length Dosing, [...] oral tablet (20 sources) Antihistamine Start: 05-18-20 24 take 1 tablet by mouth at bedtime hydrOXYzine hydrochloride 25 mg Tab 25 mg = 1 tab(s), Oral, Bedtime, # 90 tab(s), Refills(s) 4, Pharmacy: [facility] #[id number], 163, cm, 05/18/24 11:42:00 EDT, Height/Length Dosing, 80.1, kg, 05/18/24 11:42:00 EDT, Weight Dosing Start Date: 05/31/24 Status: Ordered Start: 02-25-2022 take 1-2 tablets by mouth four times daily as needed hydrOXYzine hydrochloride 10 mg Tab 20 mg = 2 tab(s), Oral, QID, PRN for itching, 1-2 tabs PRN, # 80 tab(s), Refills(s) 0, Pharmacy: [facility] [facility], 163, cm, 02/25/22 16:04:00 EDT, Height/Length Dosing, [...] DAY SUPPLY 06/28/2023 08/19/2024 Discontinued (Reorder) Magnesium (3 sources) Start: 09-08-2024 magnesium magnesium Start Date: 09/08/24 Status: Ordered magnesium oxide 400 mg oral tablet (6 sources) Start: 08-29-2021 magnesium oxide 400 mg Tab Refills(s) 0 Start Date: 08/29/21 Status: Ordered meloxicam 7.5 mg oral tablet (4 sources) Nonsteroidal Anti-inflammatory Drug Start: 08-11-2024 take 1 tablet by mouth once daily meloxicam 7.5 mg Tab 7.5 mg = 1 tab(s), Oral, Daily, # 30 tab(s), Refills(s) 1, Pharmacy: [facility]/pharmacy #[id number], 163, cm, 08/11/24 14:51:00 EDT, Height/Length [...] food., # 24 tab(s), Refills(s) 0, Pharmacy: [address], 163, cm, 02/25/22 16:04:00 EDT, Height/Length Dosing, 86.2, kg, 02/25/22 16... Start Date: 02/25/22 Status: Ordered sodium chloride 0.111 meq/ml nasal solution (2 sources) sodium chloride (Acme) 0.65 % nasal spray 2 sprays in each nostril as needed Active tiZANidine 2 mg oral tablet (14 sources) Central alpha-2 Adrenergic Agonist Start: 05-18-2024 take 1 tablet by mouth at dinner tiZANidine 2 mg Tab 2 mg = 1 tab(s), Oral, Bedtime, rx by Dr. Martínez, # 30 tab(s), Refills(s) 0, other reason (Rx) Start Date: 05/18/24 Status: Ordered Start: 06-02-2023 take 1 tablet by [facility] three times daily tiZANidine (Zanaflex) 4 MG [...] every four to six hours Hydrocodone-Acetam inophen ([place]) 5-325 mg tablet Discontinued 1 TAB PO EVERY 4-6 HOURS 40 7 March 25, 2019 December 28, 2019 7:57am cimetidine 200 mg oral tablet (1 source) Histamine-2 Receptor Antagonist Start: 03-25-2019 End: 12-28-2019 take 1 tablet by mouth once daily Cimetidine (Acid Dock Associate (Cimetidine)) 200 mg tablet Discontinued 200 MG [...] Date Documented Da te Episodic/Chronic Allergic reactions (17 sources) Vesicular eczema 02-25-2022 Episodic Anxiety disorders (20 sources) Anxiety; Translations: [Anxiety disorder] Onset: 2 08-29-2021 Chronic Attention-deficit, conduct, and disruptive behavior disorders (20 sources) Attention deficit hyperactivity disorder; Translations: [Attention-deficit hyperactivity disorder, unspecified type] Onset: 2 08-26-2022 Chronic Cancer of cervix (18 sources) Malignant tumor of cervix 08-29-2021 Chronic Cancer of cervix (18 sources) History of malignant neoplasm of cervix 08-29-2021 Episodic Chronic obstructive pulmonary disease and bronchiectasis (20 sources) Chronic obstructive lung disease; Translations: [Chronic obstructive pulmonary disease, unspecified] Onset: 3 08-29-2021 Chronic Complications of surgical procedures or medical care (1 source) Abscess; Translations: [Infection following a procedure, other surgical site, initial encounter] 05-22-2022 Episodic Deficiency and other anemia (20 sources) Anemia; Translations: [Anemia, unspecified] Onset: 3 08-29-2021 Episodic Disorders of lipid metabolism (20 sources) Hypercholesterolemia; Translations: [Hyperlipidemia] 08-29-2021 Chronic E Codes: Adverse effects of medical drugs (1 source) Adverse reaction to biological substance; Translations: [Adverse effect of unspecified drugs, medicaments and biological substances, initial encounter] Onset: 4 Episodic Headache; including migraine (20 sources) Migraine; Translations: [Migraine with aura] Onset: 4 08-29-2021 Chronic Immunizations and screening for infectious disease (1 source) Vaccination given; Translations: [Encounter for immunization] Onset: 3 Episodic Menopausal disorders (2 sources) Menorrhagia; Translations: [Excessive bleeding in the premenopausal period] 05-14-2022 Chronic Miscellaneous mental health disorders (2 sources) Primary insomnia; Translations: [Primary insomnia] Onset: 2 03-25-2024 Chronic Mood disorders (17 sources) Mild recurrent major depression; 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, recurrent, mild] Onset: 3 Chronic Nutritional deficiencies (11 sources) Decreased vitamin D 06-17-2023 Chronic Other gastrointestinal disorders (1 source) Dysphagia; Translations: [Dysphagia, unspecified] 12-28-2019 Episodic Other gastrointestinal disorders (1 source) H/O: gastrointestinal disease; Translations: [Personal history of other diseases of the digestive system] Onset: 3 Episodic Other hereditary and degenerative nervous system conditions (16 sources) Restless legs; Translations: [Restless legs syndrome] [...] [pompholyx]] Onset: 2 Episodic Residual codes; unclassified (18 sources) Obstructive sleep apnea syndrome 08-29-2021 Chronic [...] [Encounter for cosmetic procedure] Onset: 3 Episodic Residual codes; unclassified (1 source) Edema; Translations: [Edema, unspecified] Onset: 4 Episodic Screening and history of mental health and substance abuse codes (1 source) H/O: Disorder; Translations: [Personal history of nicotine dependence] Onset: 4 Episodic Skin and subcutaneous tissue infections (1 source) Abscess of neck; Translations: [Cutaneous abscess of neck] Onset: 2 Episodic Spondylosis; intervertebral disc disorders; other back problems (8 sources) Displacement of cervical intervertebral disc; Translations: [...] in the premenopausal period] Onset: 2 Unclassified (11 sources) History of small bowel obstruction 06-17-2023 Unclassified (4 sources) Patient encounter status 06-17-2023 Past or Other Problems Problem Classification Problem Date Documented Da te Episodic/Chronic Nonspecific chest pain (1 source) Other chest pain; Translations: [OTHER CHEST PAIN] Onset: 11-26-2022 Episodic Other aftercare (1 source) Other long term acute care registered nurse (current) drug therapy; Translations: [OTH ALF CURRENT DRUG THERAPY] Onset: 11-26-2022 Episodic Other [...] Name Value Interpretation Reference Range Facil ity BMPon 09-21-2024 Anion gap [Moles/Vol] 10 mmol/L Normal 6-16 [facility] Comment on above: Performed By: #### 2 [id number] #### [facility] [address] [place] [address] Calcium [Mass/Vol] 8.8 mg/dL Low 8.9-11.1 [facility] Comment on above: Performed By: #### 2 [id number] #### [facility] [address] [place] [address] Chloride [Moles/Vol] 103 mmol/L Normal 101-111 [facility] Comment on above: Performed By: #### 2 [id number] #### [facility] [address] [place] [address] CO2 [Moles/Vol] 26 mmol/L Normal 21-[address] [facility] Comment on above: Performed By: #### 2 [id number] #### [facility] [address] [place] [address] Creatinine [Mass/Vol] 0.5 mg/dL Normal 0.5-1.3 [facility] Comment on above: Performed By: #### 2 [id number] #### [facility] [address] [place] [address] Glucose [Mass/Vol] 117 mg/dL Normal 55-199 [facility] Comment on above: Performed By: #### 2 [id number] #### [facility] [address] [place] [address] Potassium [Moles/Vol] 4.0 mmol/L Normal 3.5-5.3 [facility] Comment on above: Performed By: #### 2 [id number] #### [facility] [address] [place] [address] Sodium [Moles/Vol] 135 mmol/L Normal 135-145 [facility] Comment on above: Performed By: #### 2 [id number] #### [facility] [address] [place] [address] Urea nitrogen [Mass/Vol] 9 mg/dL Normal 5-21 [facility] Comment on above: Performed By: #### 2 [id number] #### [facility] [address] [place] [address] Urea nitrogen/Creatinine [Mass ratio] 18 No Units Normal 10-20 [facility] Comment on above: Performed By: #### 2 [id number] #### [facility] [address] [place] [address] CBC w/ Auto Diffon 4 Basophils/100 WBC (Bld) 0.9 % Normal 0.0-2.0 [facility] Comment on above: Performed By: #### 2 [id number] #### [facility] [address] [place] [address] Basophils/Leukocytes Auto (Bld) [Pure # fraction] 0.1 E9/L Normal 0.0-0.2 [facility] Comment on above: Performed By: #### 2 [id number] #### [facility] [address] [place] [address] Eosinophils (Bld) [#/Vol] 0.6 E9/L High 0.0-0.5 [facility] Comment on above: Performed By: #### 2 [id number] #### [facility] [address] [place] [address] Eosinophils/100 WBC (Bld) 4.7 % Normal 0.0-8.0 [facility] Comment on above: Performed By: #### 2 [id number] #### [facility] [address] [place] [address] Erythrocyte distribution width (RBC) [Ratio] 12.9 % Normal 10.9-14.2 [facility] Comment on above: Performed By: #### 2 [id number] #### [facility] [address] [place] [address] Hematocrit (Bld) [Volume fraction] 36.3 % Normal 34.0-46.0 [facility] Comment on above: Performed By: #### 2 [id number] #### [facility] [address] [place] [address] Hemoglobin (Bld) [Mass/Vol] 12.1 g/dL Normal 12.0-16.0 [facility] Comment on above: Performed By: #### 2 [id number] #### [facility] [address] [place] [address] Lymphocytes (Bld) [#/Vol] 2.1 E9/L Normal 1.0-4.0 [facility] Comment on above: Performed By: #### 2 [id number] #### [facility] [address] [place] [address] Lymphocytes/100 WBC (Bld) 16.4 % Normal 14.0-50.0 [facility] Comment on above: Performed By: #### 2 [id number] #### [facility] [address] [place] [address] MCH (RBC) [Entitic mass] 28.6 pg Normal 27.0-34.0 [facility] Comment on above: Performed By: #### 2 [id number] #### [facility] [address] [place] [address] MCHC (RBC) [Mass/Vol] 33.4 g/dL Normal 31.4-36.0 [facility] Comment on above: Performed By: #### 2 [id number] #### [facility] [address] [place] [address] MCV (RBC) [Entitic vol] 85.7 fL Normal 80.0-100.0 [facility] Comment on above: Performed By: #### 2 [id number] #### [facility] [address] [place] [address] Monocytes (Bld) [#/Vol] 0.8 E9/L Normal 0.2-1.0 [facility] Comment on above: Performed By: #### 2 [id number] #### [facility] [address] [place] [address] Neutrophils (Bld) [#/Vol] 9.2 E9/L High 2.0-7.5 [facility] Comment on above: Performed By: #### 2 [id number] #### [facility] [address] [place] [address] Neutrophils/100 WBC (Bld) 71.7 % Normal 36.0-75.0 [facility] Comment on above: Performed By: #### 2 [id number] #### [facility] [address] [place] [address] Platelet 518.0 E9/L High 150.0-500.0 [facility] Comment on above: Performed By: #### 2 [id number] #### [facility] [address] [place] [address] Platelet mean volume (Bld) [Entitic vol] 6.7 fL Normal 6.4-10.8 [facility] Comment on above: Performed By: #### 2 [id number] #### [facility] [address] [place] [address] RBC (Bld) [#/Vol] 4.2 E12/L Low 4.3-5.9 [facility] Comment on above: Performed By: #### 2 [id number] #### [facility] [address] [place] [address] WBC corrected for nucl RBC Auto (Bld) [#/Vol] 12.8 E9/L High 4.0-11.0 [facility] Comment on above: Performed By: #### 2 [id number] #### [facility] [address] [place] [address] CHEMISTRYOrdered By: SYSTEM SYSTEM on 09-21-2024 Anion gap [Moles/Vol] 10 mmol/L Normal 6 - 16 mEq/L R emisol Chem Calcium [Mass/Vol] 8.8 mg/dL Low 8.9 - 11.1 mg/dL Remisol Chem Chloride [Moles/Vol] 103 mmol/L Normal 101 - 111 mmol/ L Remisol Chem CO2 [Moles/Vol] 26 mmol/L Normal 21 - 31 mmol/L Remis ol Chem Creatinine [Mass/Vol] 0.5 mg/dL Normal 0.5 - 1.3 mg/d L Remisol Chem eGFR 114 mL/min/1.73 m2 Normal >=59mL/mi n/1.73 m2 Remisol Chem Glucose [Mass/Vol] 117 mg/dL Normal 55 - 199 mg/dL Re misol Chem Potassium [Moles/Vol] 4.0 mmol/L Normal 3.5 - 5.3 mmol /L Remisol Chem Sodium [Moles/Vol] 135 mmol/L Normal 135 - 145 mmol/L Remisol Chem Urea nitrogen [Mass/Vol] 9 mg/dL Normal 5 - 21 mg/dL Remisol Chem Urea nitrogen/Creatinine [Mass ratio] 18 mg/mg Normal 10 - 20 Remisol Chem ED Clinical Summaryon 2023 ED Clinical Summary ED Clinical Summary [place] [id number] ED Clinical Summary Person Information [facility] Age[facility] 48 Years : 1975 Sex: Female Language: Japanese PCP: Romeo Chaidez DO Marital Status: Single Visit Id: Visit Reason: Leg pain-swelling; LEG PAIN/SWELLING Speciality: Acuity: 3 Enc Type: Emergency Med Service: Emergency Arrival: 09/21/2024 09:38:50 Discharge: 09/21/2024 12:23:58 LOS: 000 02:45 Checkin: 09/21/2024 09:38:50 Checkout: 09/21/2024 12:23:58 Dispo Type: Home (Routine DC) EVENTS: Event Name Event Status Request Date/Time Start Date/Time Complete Date/Time Arrive Complete 09/21/2024 09:38:50 09/21/2024 09:38:50 09/21/2024 09:38:50 Document Home Meds Request 09/21/2024 09:38:50 Triage Complete 09/21/2024 09:38:50 09/21/2024 10:03:14 09/21/2024 10:03:14 Registration Complete 09/21/2024 09:41:20 09/21/2024 09:41:20 09/21/2024 09:41:20 Reg Complete Request 09/21/2024 09:41:20 Reg Bed Request Complete 09/21/2024 09:41:20 09/21/2024 09:41:20 09/21/2024 09:41:20 Bed Assign Complete 09/21/2024 09:51:16 09/21/2024 09:51:16 09/21/2024 09:51:16 Dr Exam Complete 09/21/2024 09:51:16 09/21/2024 09:53:19 09/21/2024 09:53:19 RN Exam Complete 09/21/2024 09:51:16 09/21/2024 10:15:14 09/21/2024 10:15:14 Registration Request 09/21/2024 09:53:19 Dr Exam Complete 09/21/2024 09:57:46 09/21/2024 09:57:46 09/21/2024 09:57:46 Dr Exam Complete 09/21/2024 10:03:46 09/21/2024 10:03:46 09/21/2024 10:03:46 Pending Labs Complete 09/21/2024 10:12:03 09/21/2024 10:51:14 Lab Complete 09/21/2024 10:12:03 09/21/2024 10:51:14 Pending Labs Complete 09/21/2024 10:33:12 09/21/2024 10:33:12 09/21/2024 10:51:14 Lab Complete 09/21/2024 10:33:12 09/21/2024 10:33:12 09/21/2024 10:51:14 Pending Labs Complete 09/21/2024 10:34:52 09/21/2024 10:34:52 09/21/2024 10:34:52 Meds Admin Complete 09/21/2024 12:13:12 09/21/2024 12:21:17 Discharge Complete 09/21/2024 12:13:31 09/21/2024 12:24:06 09/21/2024 12:24:06 Transfer Complete 09/21/2024 12:24:06 09/21/2024 12:24:06 09/21/2024 12:24:06 ADDRESS: [address] [place] [address] [place] [id number] [facility] DOC NOTES: MEDICAL INFORMATION: Prescriptions Given: Medications to Continue with No Changes Other Medications albuterol (albuterol 90 mcg/inh inhalation powder) 2 Puffs Inhalation every 6 hours. Refills: 1. amphetamine-dextroa mphetamine (Adderall XR 10 mg Cap-ER) 1 Capsules By Mouth once a day (in the morning). Refills: 0. amphetamine-dextroa mphetamine (Adderall XR 20 mg Cap-ER) 1 Capsules By Mouth once a day (in the morning). Refills: 0. aripiprazole (Abilify 2 mg Tab) 1 Tablets By Mouth. cyclobenzaprine (cyclobenzaprine 10 mg Tab) 1 Tablets By Mouth 2 times a day as needed for spasm. Refills: 0. dupilumab (Dupixent Pre-filled Pen 300 mg/2 mL subcutaneous solution) 300 Milligram. estradiol (Estradiol Patch 0.05 mg/24 hours twice weekly transdermal film, extended release) apply 1 patch two times a week as directed. fluoxetine (Prozac 20 mg Cap) 1 Capsules By Mouth every day. Refills: 4. hydrOXYzine (hydrOXYzine hydrochloride 25 mg Tab) 1 Tablets By Mouth at bedtime. Refills: 4. ketorolac (ketorolac 10 mg Tab) meloxicam (meloxicam 7.5 mg Tab) 1 Tablets By Mouth every day. Refills: 1. Non-Formulary Medication (magnesium) ondansetron (Zofran 4 mg Tab) 1 Tablets By Mouth every 8 hours as needed Migraine headache. Refills: 0. pramipexole (Mirapex 0.75 mg oral tablet) 1 Tablets By Mouth every day. rx by Dr Martínez. Refills: 0. tizanidine (tiZANidine 2 mg Tab) 1 Tablets By Mouth at bedtime. rx by Dr. Martínez. Refills: 0. PATIENT EDUCATION INFORMATION: Instructions: Peripheral Edema Follow up: With: Address: When: Romeo Chaidez [address] [place], [place] [id number] In 3 days 09/24/2024 DIAGNOSIS: Edema; Medication reaction Normal [facility] ED Note-Physicianon 09-21-20 ED Note-Physician ED Note-Physician Basic Information Time Seen: Rustam Arnett DO 09/21/2024 09:57 Chief Complaint pt c\o L leg pain and swelling, states had neck surgery 09/17/24, US negative yesterday for DVT pt is concerned adverse reaction to dupixent shot History of Present Illness 48 year old female presents to the ED with chief complaint of left lower leg swelling. Pt states she noticed her leg starting to swell around 2 weeks ago and has since gotten worse. Her hands were also swollen initially which has since subsided. She recently started an injection called Dupixent for her eczema that was prescribed by her bricklayer tender. She states one the side effects of it can be joint pain and leg swelling. She is a smoker and did have neck surgery last [facility] at [facility]. No control use. She states the swelling did not change after the surgery. She went to another ED yesterday and a US was done of her left leg that was negative for a DVT. Pt denies any chest pain, shortness of breath, or back pain. She denies any history of heart problems or diuretic use. There is no redness to her leg. She denies any fevers, chills, nausea, or vomiting. No injury to her leg or recent falls. Pt denies any further aggravating factors or concerns related to today's visit. Review of Systems A 10 point review of systems is negative except as noted above. Medical and Surgical History: Reviewed and noted Social history: Lives at home Tobacco: Denies Physical Exam Vitals & Measurements T: 36.4 ???C(Oral) HR: 86(Peripheral) RR: 14 BP: 157/88 SpO2: 100% HT: 163 cm WT: 82 kg BMI: 30.86 Nurses notes and vital signs reviewed and patient is not hypoxic. General: The patient appears well. Patient is resting comfortably on the exam bed. Skin: Warm, dry, no pallor noted. Head: Atraumatic. post-surgical dressings noted to left side of neck. Neck: No JVD. Well-appearing surgical incision to the left side of the neck. No tenderness. No wound dehiscence. No ecchymosis or erythema. No drainage. No soft tissue swelling. Eye: Normal conjunctiva. Ears, Nose, Mouth, and Throat: Moist mucous membranes Cardiovascular: Strong distal pulses. Mild LLE pitting edema. Chest wall: No pain or deformity. Respiratory: Respirations are nonlabored. Lungs clear to auscultation. Back: Normal range of motion, no CVA tenderness. Musculoskeletal: Normal ROM with no gross deformity. Gastrointestinal: Soft and nontender. Urological: Neurological: Awake and alert. No focal deficits. Follows commands. GCS 15. Psychiatric: Cooperative. Medical Decision Making Patient seen and evaluated the [employer] student. I had a dyho-at-sdnu interaction with the patient. I personally performed the physical exam and medical decision making. I have verified the documentation by the student is accurately representing the information obtained. Patient presents for evaluation of generalized myalgias and edema. She states symptoms have been progressive since she received her first dupixent injection for eczema. She also had recent surgical fusion. She has had no difficulty with speaking or swallowing pain or fever, chills, nausea or vomiting. No chest pain or shortness of breath. Given the recent surgery and edema her PCP was worried about DVT. She was seen in outside ED yesterday with negative ultrasound. Continues to have the edema comes to our ED for repeat evaluation. On examination she has some generalized edema most notably to the lower extremities. No focal area of pain or discomfort. Stable vital signs. Screening laboratory studies are grossly stable. Likely medication reaction is discussed patient given a one-time dose of Lasix here to see if it helps with her edema follow-up with her PCP. Also strongly encouraged to follow-up with her bricklayer tender regarding the injection and possible side effects. Patient was encouraged to return to the ED if symptoms worsen or change. Assessment/Plan Edema (R60.9: Edema, unspecified) Medication reaction (T50.905A: Adverse effect of unspecified drugs, medicaments and biological substances, initial encounter) Orders: furosemide, 40 mg = 1 tab(s), Tab, Oral, Once, Stop date 09/21/24 12:12:00 EST, STAT, Start date 09/21/24 12:12:00 EST, 09/21/24 12:12:00 EST Basic Metabolic Panel CBC w/ Auto Diff eGFR Extra Blue Tube Extra SST Tube Medications Administered Given Lasix 40 mg Tab, 40 mg, Oral Disposition Plan Patient Discharge Condition Disposition: Discharged home Condition: Improved and stable Counseled: Patient and/or family were counseled to workup, results, treatment plan and follow-up recommendations Discharge Prescription List Prescriptions No active prescription medications Follow-up With When Contact Information Romeo Chaidez In 3 days 09/24/2024 EST [address] [place] [address] Additional Instructions: Patient Education Peripheral Edema Attestation I performed a substantive part of the MDM during the patient???s E/M vi (more content not included)... Normal [facility] Comment on above: Result Comment: Elec tronically Signed By: Rustam Arnett DO\.br\Date and Time Signed: 09/21/24 18:49 EST\.br\Electronically Co-Signed By: Devaughn Song PA-C\.br\Date and Time Co-Signed: 09/21/24 14:35 EST\.br\Electronically Co-Signed By: Devaughn Song PA-C\.br\Date and Time Co-Signed: 09/21/24 14:36 EST ED Patient Summaryon 024 ED Patient Summary ED Patient Summary [place] [id number] Patient Discharge Instructions Person Information Name: TOOTIE NICOLE Age: 48 Years Arrival Date: 09/21/2024 09:38:50 Discharge Diagnosis: Edema; Medication reaction Primary Care Physician: Romeo Chaidez DO Provider Information Primary Provider: Rustam Arnett DO Advanced Medical Microbiologist:Devaughn Song PA-C The exam and treatment you received in the Emergency Department were for an urgent problem and are not intended as complete care. It is important that you follow up with a doctor, nurse practitioner, or physician???s preschool assistant for ongoing care. If your symptoms become worse or you do not improve as expected and you are unable to reach your usual health care provider, you should return to the Emergency Department. We are available 24 hours a day. TOOTIE NICOLE has been given the following list of patient education materials, prescriptions and follow-up instructions: Follow-up Instructions: With: Address: When: Romeo Chaidez [address] [place], [place] [id number] In 3 days 09/24/2024 In the event that this physician does not participate in your insurance network, please consult with your insurance company to find a nearby participating provider. Patient Education Materials: Peripheral Edema A MESSAGE TO ALL PATIENTS REGARDING OPIOIDS PRESCRIPTION OPIOIDS: WHAT YOU NEED TO KNOW Prescription opioids can be used to help relieve mabhijvb-ye-kuikmk pain and are often prescribed following a surgery or injury, or for certain health conditions. These medications can be an important part of the treatment but also come with serious risks. It is important to work with your healthcare provider to make sure you are getting the safest, most effective care. WHAT ARE THE RISKS AND SIDE EFFECTS OF OPIOID USE? Prescription opioids carry serious risks of addiction and overdose, especially with prolonged use. An opioid overdose, often marked by slowed breathing, can cause sudden . The use of prescription opioids can have a number of side effects as well, even when taken as directed: ??? Tolerance???meaning you might need to take more of the medication for the same pain relief ??? Physical dependence???meanin g you have symptoms of withdrawal when a medication is stopped ??? Increased sensitivity to pain ??? Constipation ??? Nausea, vomiting, and dry mouth ??? Sleepiness and dizziness ??? Confusion ??? Depression ??? Low levels of testosterone that can result in lower sex drive, energy, and strength ??? Itching and sweating RISKS ARE GREATER WITH: ??? History of drug misuse, substance use disorder, or overdose ??? Mental health conditions (such as depression or anxiety) ??? Sleep apnea ??? Older age (65 years and older) ??? Avoid alcohol while taking prescription opioids. Also, unless specifically advised by your health care provider, medications to avoid include: ??? Benzodiazepines (such as Xanax or Valium) ??? Muscle relaxants (such as Soma or Flexeril) ??? Hypnotics (such as Ambien or Lunesta) ??? Other prescription opioids KNOW YOUR OPTIONS Talk to your health care provider about ways to manage your pain that don???t involve prescription opioids. Some of these options may actually work better and have fewer risks and side effects. Options may include: ??? Pain relievers such as acetaminophen, ibuprofen, and naproxen ??? Some medication that are also used for depression or seizures ??? Physical therapy and exercise ??? Cognitive behavioral therapy, a psychological, goal-directed approach, in which patients learn how to modify physical, behavioral, and emotional triggers of pain and stress. IF YOU ARE PRESCRIBED OPIOIDS FOR PAIN: ??? Never take opioids in greater amounts or more often than prescribed. ??? Follow up with your primary health care provider. o Work together to create a plan on how to manage your pain. o Talk about ways to help manage your pain that don???t involve prescription opioids. o Talk about any and all concerns and side effects. ??? Help prevent misuse and abuse o Never sell or share prescription opioids. o Never use another person???s prescription opioids. ??? Store prescription opioids in a secure place and out of reach of others (this may include visitors, children, friends, and family). ??? Safely dispose of unused prescription opioids: Find your community drug take-back program or your pharmacy mail-back program, or flush them down the toilet, following guidance from the Food and Drug Administration (www.fda.gov/Drugs/ ResourcesForYou). ??? Visit www.cdc.gov/drugove rdose to learn about the risks of opioids abuse and overdose. ??? If you believe you may be struggling with addiction, tell your health child day care teacher and ask for guidance or call [facility] (more content not included)... Normal [facility] Extra Blueon 09-21-2024 Tube Collected Plasma Yes Invalid Interpretation Code [facility] Comment on above: Performed By: #### [id number] #### [facility] [address] [place] [address] HEMATOLOGYOrdered By: SYSTEM SYSTEM on 09-21-2024 Basophils/100 WBC (Bld) 0.9 % Normal 0.0 - 2.0 % Remisol Heme Basophils/Leukocytes Auto (Bld) [Pure # fraction] 0.1 E9/L Normal 0.0 - 0.2 E9/L Remisol Heme Eosinophils (Bld) [#/Vol] 0.6 E9/L High 0.0 - 0.5 E9/L Remisol Heme Eosinophils/100 WBC (Bld) 4.7 % Normal 0.0 - 8.0 % Remisol Heme Erythrocyte distribution width (RBC) [Ratio] 12.9 % Normal 10.9 - 14.2 % Remisol Heme Hematocrit (Bld) [Volume fraction] 36.3 % Normal 34.0 - 46.0 % Remisol Heme Hemoglobin (Bld) [Mass/Vol] 12.1 g/dL Normal 12.0 - 16.0 gm/dL Remisol Heme Lymphocytes (Bld) [#/Vol] 2.1 E9/L Normal 1.0 - 4.0 E9/L Remisol Heme Lymphocytes/100 WBC (Bld) 16.4 % Normal 14.0 - 50.0 % Remisol Heme MCH (RBC) [Entitic mass] 28.6 pg Normal 27.0 - 34.0 pg Remisol Heme MCHC (RBC) [Mass/Vol] 33.4 g/dL Normal 31.4 - 36.0 gm /dL Remisol Heme MCV (RBC) [Entitic vol] 85.7 fL Normal 80.0 - 100.0 fL Remisol Heme Monocytes (Bld) [#/Vol] 0.8 E9/L Normal 0.2 - 1.0 E9/L Remisol Heme Monocytes/100 WBC (Bld) 6.3 % Normal 4.0 - 14.0 % Remisol Heme Neutrophils (Bld) [#/Vol] 9.2 E9/L High 2.0 - 7.5 E9/L Remisol Heme Neutrophils/100 WBC (Bld) 71.7 % Normal 36.0 - 75.0 % Remisol Heme Platelet 518.0 E9/L High 150.0 - 500.0 E9/L Remisol Heme Platelet mean volume (Bld) [Entitic vol] 6.7 fL Normal 6.4 - 10.8 fL Remisol Heme RBC (Bld) [#/Vol] 4.2 E12/L Low 4.3 - 5.9 E12/L Re misol Heme WBC corrected for nucl RBC Auto (Bld) [#/Vol] 12.8 E9/L High 4.0 - 11.0 E9/L Remisol Heme eGFRon 09-21-2024 eGFR 114 mL/min/1.73 m2 Normal >=59 [facility] Comment on above: Performed By: #### [id number] #### [facility] [address] [place] [address] Ambulatory Visit Summaryon 1 11-08-2023 Ambulatory Visit Summary Ambulatory Visit Summary JAMES NICOLENY :1975 Visit Date:09/08/2024 Ambulatory Visit Instructions Your Diagnosis Pre-op exam Cervical radiculopathy at C8 Cervical disc herniation Adult BMI 30.0-30.9 kg/sq m Your Care Team Attending Physician - Romeo Chaidez DO Primary Care Physician - Romeo Chaidez DO This Is Your Medications List Contact prescribing physician if questions or concerns Non-Formulary Medication (magnesium) albuterol (albuterol 90 mcg/inh inhalation powder) amphetamine-dextroa mphetamine (Adderall XR 10 mg Cap-ER) amphetamine-dextroa mphetamine (Adderall XR 20 mg Cap-ER) aripiprazole (Abilify [...] PM EST With: Romeo Chaidez DO Where: [address] [place] [address]- Medications What How Much When Why Instructions Unchanged albuterol (albuterol 90 mcg/ inh inhalation powder) 2 Puffs Inhalation Every 6 hours COPD mixed type Contact prescribing physician if questions or concerns Unchanged amphetamine-dextroa mphetamine (Adderall XR 10 mg Cap-ER) 1 Capsules By Mouth Once a day (in the morning) ADHD Contact prescribing physician if questions or concerns Unchanged amphetamine-dextroa mphetamine (Adderall XR 20 mg Cap-ER) 1 Capsules [...] You ma (more content not included)... Normal [facility] CHEMISTRYOrdered By: SYSTEM SYSTEM on 09-08-2024 25-hydroxyvitamin D3 [Mass/Vol] 13.3 ng/mL Low 30.0 - 100.0 ng/mL Remisol Chem Family Medicine Office/Clini c Noteon 09-08-2024 Family Medicine Office/Clinic Note Family Medicine Office/Clinic Note Chief Complaint surgical clearance HPI Staff Patient here today fir Surgical clearance SHIRIN 08/11/24 Labs 10/01/23 Patient getting cervical fusion 09/17/24 in [place] History of Present Illness social The patient is not The patient is not currently working; on disability for migraines still stuck going to hospital every month The patient has 3 biologic child(troy) - and 2 step children 2 grandchild(troy) home-schooling her grand children Screening: Colonoscopy: Cologuard completed 2023; states was negative Mammogram: overdue DEXA: age Pap: CELLARS SUPERVISOR - Dr. Sarah DAVIS Smokers/ former smokers: Low dose lung CT: 06/04/2024 - Negative, continue with annual screening List of Providers: Neurology - Dr. Lisa Martínez Electrical Research Engineer - Dr. Hicks - [place] Derm - Dr. Blanco Ortho - Dr. Langford - [place] patient reports that neurologist recommended gabapentin she [...] no - History of ischemic disease (prior [facility], positive stress test, current chest pain considered [...] procedures Superficial procedures Cataract surgery Breast surgery [place] [employer] (APA) Physical Status Classification [...] dry Neurologic: (more content not included)... Normal [facility] Comment on above: Result Comment: Elec tronically Signed By: Romeo Chaidez DO\Date and Time Signed: 09/08/24 12:18 EST Vitamin D 25 Hydroxyon 09-08 25-hydroxyvitamin D3 [Mass/Vol] 13.3 ng/mL Low 30.0-100.0 [facility] Comment on above: Performed By: #### [id number] #### [facility] [address] [place] [address] Coding Summaryon 08-26-2024 Coding Summary HTMLBase 64 SmjozkptTSh8hAi+PGh lYWQ+WG5OKAGtB67wvC LerM2fZ4AEUBvMSunxP CDHQZnUOrWeybXsEF3n aXNjZXJu IC8+QE9uPFQxSfmleEG nt8J1fGP5I59uaf2qXM infZS8TCAqPoZamamdd 8mqfKn5DZqrUyrsHzFf CJPitJ40YNL8sF64Sb8 5zGZeiXXkn7dtlWr6Ld TfTCYaPKL7pXtmNReue 6VwJQQoJ49unKNex6U6 IGNvbGxhcHNlOyBlbXB 9yS0jOTdxqztnr9xzan qpFzq9rd18gAOru6S7v BF3Y0NsqtA0PIZzfSBy NwuafLAIbS9yecbhi8h itwcwWyAjXXMqYFb1GV l8EOKntXgqUyCzGI68H KJ8RPNpjvDgX9SfKIHs yHuvRbM0n0A7Vu0TD0Q DHzjyO0DHKRNZSBpceO Q+DG36hv75S6VgVvepW ki6ZGZlITG4iTR7qQ4z ORGsKLehs2H0dRJ6O0I gehYdqj0ty0voCUVlAI vmU12iaQNun2M6VNKjf ZJ0QJWufDpwMsPxkE56 Oyc+YIYasKtgn4OoYzs bc5els3vwgZl1NdbcMW AbmxAllJdgXAL4p8QxW e6wKVFcaCB9oAI7aL2b TpEsJqW6JWmnP843MoC njNHwDlkkB61iA5QtsS A+ANBiGqj4GHDfoDpzO D3lN1RoSAHqlqytrEBh sYeuCW1uWEBkynwuJAF abV8mYPQnT3h8TuTaFc P6OZrtO1KnUNAzdwqwN f54gI0kFtWvNzW6OCse Y0SfpaF5XGOclGEmQPl bPEI4K23mz7K7BCYbNJ NcJVR3hDL8zI2khPvbu jogbGVmdDsgdmVydGlj SWkoUMgbP871XQSorKx nPkNvZGluZyBEYXRlOi AgMTAvMjQvMjAyNDwvd GQ+SGYqLTQ0qPioAAQs ySLoCGwlSf5lbWktgCl mSB8dAZByhqikAXSnhF 3mVBYsdPHloKglKJ0pH QLjpdgzc904CwMvRTH6 SYXveWXpE5TlwJ6oFgE eQCEbLYOqB8BdmRVnVS afU563TXmsNeH1MMZjm uPeT4HuYZRcfHpnEtV4 z9T0Wg2Gf6TfqzilP9Z efCMdEmItCfesPPe7Q2 RkPjwvdHI+HB38UXYnO H27TRu0RVS3xWjzLWnm LZHbT8TosL1fSvXxMVH kZGRkOyc+PHRhYmxlIH dpZHRoPScxMDAlJyBzd JojPN6kFm6eZAJfOSFo oXeweBUyEqDsu7meRSF tYFqhLH5yfUdjB5ZaiH Q0AQDut5p4Rm79N27mV 3JvdXA+HEVrmLW6tGX2 mD1bBlVjVpA8ATwxG73 3SgOkiIPfSlqbw5eok2 tiySo6BaY2CEJszeMgw MzyTCQ6w6TpEk79T16x IHdpZHRoPSIxNSUiIHZ fbAqruk8pzY9yYn3+PG SvfPB8lRG7bM3kIlPcM rD6WUsxK974SmEjoCJn Erpxc7gqc5xcsHu2TuV dKOPerqTekXndDVD3f7 RcWp75B2JgqLocj2LzY lp6hw13nQLdc2A5lUS6 U2RdPGDbgfrqrRIeyDh sJF5bSMEkkfdoVTGhrW 5fOOQxY1i0UsAnKhU4I UuiF3GvndM4GSLnsXCe POAjhFMZrC4wvyxwy6c nhyzlSqQlATYwGCy7GK j4OYTqxQggBuDpBIQ2V qC9KID6iGEoqF6uiFfb sctuaV9jFkk+AIV0xAE zwUJXOK4aFnepxLS+PH RrLJR9vXiyDGysVKRcy O1aKQVdU0d4OiGtYbU0 OKtyC5UndtV3JKRwwKW hBDUmkNLWzL8verzih6 ukyloaVqGqFREdVKq1A Et2PYFpkIoyZaNyQQP6 PvN7HGV5uIMjkF9sqZf nvlujgU0qSjd+QmlydG hyPEM0MCt0D3JaWbr4E YUctDynNZ0yrLZzVUiq Ax9ygCrbgCjsHA6hCZO xngdue907AhVqm3aoQX BzfXSoFHfmWPQ0V57hp 2W3TTAdHLUwUZA4mRC3 zO2wkJxhjfjslUHdxZa gdmVydGljYWwtYWxpZ2 75PKWwlTfqJkOtDRn2E 9AoVax2QTLdqUyxRG2d iYPkVJtzMh7vjOqiyBz yRO7hEPRgqdbla908Nc Sts8gbVGXsfMWkUXriR HJ6C16wx7I8GNQvJNTd KST7gJF2uZ2ykQlxzpm gbGVmdDsgdmVydGljYW eaOMkyC374ZDAubWfhR tVtmFx4U7MsNjz0XCNo pKieHU6agWOtBErcRp8 pzZwlpMhrAF5lHTZcjh tqh356AhWkr6qqOLKsx PRuPLdrUFA5G75gk3P3 IDOgXHTiUTX7gWS0jO3 hbGlnbjogbGVmdDsgdm EmaMubSWrsNFkrF481X HRvcDsnPlBhdGllbnQg ZAgfXNu0X3WyOqjofGF +ZH81ZVOzNF66cHOfmW Cox6pdjTd9ZrRlPLElA GM3cJjhYNukq2IkWGCz T07liTAbc8N3IIZloAy bcBFgVcLfvDW8zG7rWB zgthjko6qcjurmBgetc 1qllr20zM63U91fYRog ZHRoPSIzMCUiIHZhbGl xcu7dfJ9nWn8+PGNvbC X3lIP4kD4zCDZnWoY1D IcoJ911YfDqwESxNzvq l7exs2ehdVr9DtC4CCX oxtPqqByjFSF4c2OeEr 46N12oKNviTVEmHOQiA UHrGOOryTxfho9oeB3p Ii8+CANwhXH3uFU4iK1 wYdLwLhN3ALxkA167Lv MccYExMnfcU09rJ2Rqs XA+DWZrXqw0QEVspKqp ZB7zpFFoRZdkIv2uLNT 2EtFmAsHuBJbpQ3MkPN OakyiycnefcFI3EZTeK OBijC07Am2auDchZMSj xLNAfQ3yhdigp7jvjfb gIkHlGTCcLBz2VKk4QX XyfPbvWpSoPRK9MuT5B YI6uOYbsS4lrYhpavyd bJ1zU9GdQDCawuqtBr7 5aK8wYpWpDjM6IMacHh c+XaSOMDByWYZHAy0FE FNVRTwvdGQ+PHRkIHN0 wYhfEOjvRTYfnQ9dKZK xB9t1IsRuHrM0FAfaA3 YiRXWvnqxgDy53cA5iW cVjIwT6YOphU2DgclI2 JBRhbSSwYOykCCP9V95 an5B3HFDiUCEaVHF8pZ E5iB6kcTzspnwlvASzp DsgdmVydGljYWwtYWxp Y501BQOqmPxtGiMeKjO qRdY8NtC4Z3ZbDpo3LT IwgIhwWV1nnPDmTWiiT s8zvVhnzBtpPY2iATEq jaweTZGoeS9nOQCdqYE ylEhoOW9cRHNpofpks4 49UyUfJVA7USNnpAXuN 4UhqG6nOiKzGNMsHICp K7GfrFKzDWnmB644LJa wHwG0ZGPoctJdN7NxYO NmjGyaZnZ5f8D7Kt22Q CBZZWFyczwvdGQ+PHRk PSV1sOktTNogNSGmtC9 lYUGfP3l4HwDlBeX6WU rkB4OxQLXbotxmIy16n D2zCpIoHxS2RVmdW4Sk caY7KZLvrQDhFHuyBOD 0E32qn9L0QSVdSLWrII U6eJV2eW6roNxmofcea GVmdDsgdmVydGljYWwt IWctU154CTXuqBbkFiZ FTUFMRTwvdGQ+PHRkIH V9oWlsQKokZYZnoF7iC ESsU8w9YnXePaK6EPpd S2PhFTZfdrqpPq70bW8 nBjDvTcO5UZkeG9Ktpt N3GWRowFMxNGaaOOQ3T 51sp2B1GIJxADHlUCU1 qNN4nQ2ymUhafijhhJE mdDsgdmVydGljYWwtYW nzX977BMTukDfeKbMvB NBpGF8udKemiII+PC90 pl43S8SsUsflFvb4WKJ bFHT0hRK4tR9gHKCwTW muk0I5dVZ2G3OzxzZtt b7ik1foHLNoIKtjJ74q rIGiq0P4RXQzcUS5YVP tkOooYdKfpD29Swb+PG YrqUifp5WoBffmh0jdl 2pyfDv0ZpNsSSMkphDd aTvkQJE6l7VtGu40A89 sIHdpZHRoPSIzMCUiIH HdcRwptg2khM2vAe4+P BKmrTW5gNE9cD7kRxBy QjU2ABfgB141QmQmqTT yLohsm8xyt1mnyFn7Qf EyELKwllSysItpVGG4l 8TnWt28I1XzhMrec0Fy Tdp7rc32rNWtc1B0tMH 6H8FmTWTqoupnhGPpfI xnJL0xKJTeeuuuNFHtc E2aSHFbJ2h4TnCzFeN3 HQasC1IeqgB5JLFpqPX eQXPpbQNRrO0jcecrz9 vqcumdAvZaJGIlXXj4T Ly2IADzkGxtYjNmHFI8 CpR8BUF4dYCosA7ajYu dtlpgtL5mQsw+UGh5c2 qanXJhRA2thHB8LY81G I00nCMny3P5vAU4I2Vt TAWpgxxduefbxSG5XOU kLBPucC96Yy0feYwcFw 5bQESiIOG3RCNcoXCsM 2YjfQ9gOtWaHFUdJAKh E5DpuDRtGLotX898LAd yWeH3HLQytxJvK1CiDJ YmsRbiOmB2k4Z3Ji4MT X52QA25NL51cZYzh4L3 oIG0H5NxZMWajqvrnen fkKW4NSBmPNFwvY00Hb 4wsQtlWs2cUWZkDTG6Y OQsxXUxY9ChlG0nQxNr HIAhOJKaI3UlcUSqPIi qH928YLnwIkZ1OBOfdk XzR3LzIDOlhFhmMkN5v 5F2Qe9YWv73BT85LH30 tLUic3Q7eWI5H2TuGWB tanclmchsrKR6NBJdXO WdxY04Dj6qtGxlRk6eM QSaMEK5CZNlbYGfC3Lh cC2jKpBxLCJiZNSnJ1P cpWBkFWcxS322YEuoVh N9UWHhjjTsS6FkHUEfm GmxUgD0l6Y0Uj4BWWpb wgw2D7HhOyxoqCI+PC9 3AEBeAQ04dNMgnYJaj7 vwsDh5EaVoMAXqXGF1d SbeXCiiv5BcVHXbQ75w bGF (more content not included)... Normal [facility] [...] 08/24/2024 20:29 EDT by Abner Taylor MD [facility] ED Clinical Summaryon 2023 ED Clinical Summary 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 08/14/2024 23:32:00 VITALS INFORMATION Vital Sign [...] Home PATIENT EDUCATION INFORMATION Instructions: Cervical Radiculopathy, Buqq-xa-Ogia; Chronic Migraine Headache, Mdij-xf-Loac Follow-Up: With: Address: When: [place] [address] [place] [address] Within 3 to 5 days DIAGNOSIS: 1:Migraine headache; 2:Cervical radiculopathy Patient Understands: Yes - 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 verbalizes understanding of instructions given Comment: [facility] ED Patient Summaryon 024 ED Patient Summary [facility] - Emergency Department [address] [place], [place] [id number] PATIENT DISCHARGE INSTRUCTIONS Patient Information Name: TOOTIE NICOLE Age: 48 Years Date of : 1975 Reason For Visit: Neck pain; Headache; HEADACHE Arrival Time: 08/14/2024 23:19:27 Primary Care Physician: Romeo Chaidez DO Attending Physician: Dameon Varner MD Comment: Visit Diagnosis: Diagnoses This Visit Cervical radiculopathy (M54.12) Headache (39360426) Migraine headache (G43.909) Neck pain ([id number]) The Pharmacy at [facility] is open Friday through Friday from 9A [...] problems; contact the Mental Health & Recovery Board [place] 26/05 Crisis Hotline -Text 4SGJM ja 655629. If you received any narcotics, sedation, or [...] documents With: Address: When: [place] [address] [place] [address] Within 3 to 5 days Medication Information: The exam and treatment you received today in the [facility] Emergency Department were for an urgent problem and are not intended as complete care. It is important for you to follow up with a doctor, nurse practitioner, or physician?s preschool assistant for ongoing care. If your symptoms [...] of medications post discharge. Please inform your acid retort operator/provider of your visit and for further instruction on these medications. Any specific questions regarding your chronic medications and dosages should be discussed with your primary care physician(s) and/or pharmacist. Additional medications on your home medication list not specifically addressed. Please contact the ordering physician if you have questions about these medications. amphetamine-dextroa mphetamine (Adderall) 20 Milligram every day. clobetasol topical [...] Patient states she had an accident at [employer] and she has had many aches and pains. She is having Neck surgery 09/27/24 Dr Clarke in [place]. She also asking about having labs for gout. ADHD followup: States medication working Sleeping well: Yes, 6-8 hours Blood pressure:Reviewed, _ Concerns/complaints : None Controlled substance:YES Urine Drug Screen done:UTD [...] was negative Mammogram: overdue DEXA: age Pap: CELLARS SUPERVISOR - Dr. Sarah DAVIS Smokers/ former smokers: Low dose lung CT: 06/04/2024 - Negative, continue with annual screening List of Providers: Neurology - Dr. Lisa Martínez Electrical Research Engineer - Dr. Sarah DAVIS Derm - Dr. Blanco Ortho - Dr. Langford - [place] The patient presents for follow-up for ADHD medications. She is not having any medication problems at this time. She states that she is having neck surgery with Dr. Clarke at [place] on 09/17/2024. She has been having pain [...] Chronic Has surgery with Dr. Clarke from [place] 09/17/2024 Placed on cyclobenzaprine 5 mg BID [...] With When Contact Information Romeo Chaidez DO, FAM, PED Wit (more content not included)... Normal [facility] Comment on above: Result Comment: Elec [...] concerns albuterol (albuterol 90 mcg/inh inhalation powder) amphetamine-dextroa mphetamine (Adderall XR 10 mg Cap-ER) amphetamine-dextroa mphetamine (Adderall XR 20 mg Cap-ER) aripiprazole (Abilify [...] PM EST With: Romeo Chaidez DO Where: [facility] [address] [place] [address]- You Need to Schedule the Following Appointments Follow Up with Romeo Chaidez DO, XAVIER, PED When: Within 3 months Comments: 20 min slot cyclobenzaprine 5mg twice a day meloxicam 7.5mg daily have the surgeon send us notes f/u 3 months Where: [address] [place] [address] [phone] Medications What How Much When Why Instructions New cyclobenzaprine (cyclobenzaprine 10 mg Tab) 1 Tablets By Mouth 2 times a day as needed for for spasm Spasm of cervical paraspinous muscle Pickup at [facility]/pharmacy #[id number] New meloxicam (meloxicam 7.5 mg Tab) 1 Tablets By Mouth Every day Cervical disc herniation Cervical radiculopathy at C8 Refills: 1 Pickup at [facility]/pharmacy #[id number] Unchanged albuterol (albuterol 90 mcg/ inh inhalation powder) 2 Puffs Inhalation Every 6 hours COPD mixed type Contact prescribing physician if questions or concerns Unchanged amphetamine-dextroa mphetamine (Adderall XR 10 mg Cap-ER) 1 Capsules By Mouth Once a day (in the morning) ADHD Contact prescribing physician if questions or concerns Unchanged amphetamine-dextroa mphetamine (Adderall XR 20 mg Cap-ER) 1 Capsules [...] physician if questions or concerns Pharmacy Information [facility]/pharmacy #[id number]: [address] [place], [place] [phone] Allergies Imitrex (Rash) Tape (Chemical burn) penicillin [...] depression (more content not included)... Normal [facility] Coding Summaryon 07-27-2024 Coding Summary HTMLBase 64 BhmmqgmzNVu6pUv+PGh lYWQ+TR1TVOOtG75bvU LpuY0yB1UCJQdNHthyQ POVLLtDQqNuamFdIV9x aXNjZXJu IC8+FS1yOBHgRbqjiGN wk8L5jYS5K45nrz3iBV shfYG7JTOgTqQibctcd 7knbTi7RCefSpigMsGl CAKomL05KJQ9mK61Vp2 5gNCxbZOng5eabWh9Or BvQRGkJBB7nHuwYVifd 8RtBFDvH50fnKLyh0Y9 IGNvbGxhcHNlOyBlbXB 4fQ2nKJwrupjwt3yslg keHab8us19gGMji5S0o YY4X5HkvtT1IKWiqURz DwvdsDXIlJ6quixco8t dktifWoNlXOSiSIn2ST h4BQUjeKezCwVzHV90Z EJ3HQMoljJgO0MdSGYu cLznQdC8a5X9Fq5WE4M EZjgxF6FSAXBIHTvlcT Q+SX18dy92X1HyZpmqV wd3ETKhCVX4uCX0fQ3x KVOvTSecy0P5hJZ5U2Z rwzZgxm2xo7npXGVfLN geX83yzBRjs6S6LZAee PV9LGRanAdtOtFbeL01 Oyc+BOOyuEtsz5RkJfx mr3kxk4gacGr4YppbIZ BqfiUnzQsgQIW5j8NdE w0hEYSwlBK0oWK3hK5z PwQjYeS7GCkjW187RpD fwIDgAnhgD87nA9NwuT A+JBMtPuv3FAZpmVqzT Q8iI7EpTAJjzvvksWTm vFjsSS1vVDAqhqttXRQ biR4wFESuU5z0AeLfYg Q0NYekR3PzXAQeunkdU n45oI2xSoLmJpE7WUwv Y2DjmmL8YINewKWxALy qMWQ4Y02kr6U3POThNB JfCDD1kRA5pB7xhRpsb jogbGVmdDsgdmVydGlj WLyaVBknK041YLNmsNw nPkNvZGluZyBEYXRlOi AgMDkvMjQvMjAyNDwvd GQ+FUUhLMG5uSpdNIVj vPDkXSbuNx6unEqmwMu yPR4oEKDzaupiVBEcoX 8rNXOcmUIzkDlpVN7yA IKbfpzrl614TrFeGNV8 UFUbrMRaA0VcgX1fJnO jCJFtTSXiJ5CojXOqHR yzU928ZHamNvH8OIIzr iQmL2TfOFAopOkiYhY3 x6H6Ks7Ip5BrdyatX8B gbXDsKaRjWiglFHn3S0 RkPjwvdHI+QU55RSKkW F91BFi3DOV4wMauBOcg NYOzV2LzkP0mXpMnRIS kZGRkOyc+PHRhYmxlIH dpZHRoPScxMDAlJyBzd BzcWL1lEh1nOHYnPCGc jLmstLPwPkCsm4mfQYI gSAayRM0epYwoY0HecS V0YUQdx5t2Xq47I53nA 3JvdXA+VSFjxOJ9yLK6 bM4cQzQdPiW1NNwgP11 4BlYaxUUjIhgum5caj8 bjdEn5CpF8QMAyvzGbp GuuXMH5q5YjJy38A52e IHdpZHRoPSIxNSUiIHZ esQdryp2qbI8dPg9+PG OmsSR2vMH9hK6xXzUfJ sR6UGntL381YpHawQSy Apdop8rmk3svmMa6ByQ wCDYhelPylRgeWWA3r8 RgVx33H4YvuIjqg1VsS sp0ne22dFIsk9A2wGF5 Q4RbHFVgybqasLOzoOy uKN1zGAZrjehyIWJjqV 4hQVUyQ5t9TnSlIpB8P VmyG5BepaW3MWElvHFr FLLiwNRUvZ7jfwvbz3p gquqhLiQzPCDdVBl1NZ d8YNNjsPgxXiLiIKR9Q iD6QCA5sCDmeN1gyYfd fmwirC6aHob+ZYS7aYI veLGFRS3jQvpdiRO+PH UsQUS0fPxcJIjrRAGkw A1oHNIaW0i0SiEoCaZ0 RWicB8KqjqR7UIQljWK vSQVoqLCFzQ8ctjyrq7 zuckbfKrNyWUMtPKz8K Vc0WXKekOrnPzBxWGH7 XoQ9MVC2nYZitX1jtUm porvxhC1sMin+QmlydG ctRDD2MVi5Q5RgFvw6K GHzaLyyXW4fzOYfHDpo Uu3ziUaulWvcMW4rNMN rveags046XdHqy6neBP GbxWCfLNivSYY9D60ra 4H2CVLvBQNeSMV8nSB9 wU4mkPljqbnqbMMgwNq gdmVydGljYWwtYWxpZ2 76JHYbtOacTaIoWCn4I 2AyKok4ZBXoxAuaEP9s xMSoEZjvZt2esJvdkRz bRL1oSWKdagmzj503Qw Vho9kuIFYyfFVnDLibG KK4M97ri2D9KPRkOQYx UKK8gEV9cU9wrXqhkne gbGVmdDsgdmVydGljYW ndMZggI647ZOSzwTlzU fRdfYu6W1LkFue1RYOi gMfdUS4suBKnRNzlSi6 blAltjXouSP4tDMRfbh ydg736MfLdl5qhJHCtw AVtIZatGSM9F02jc2R4 FRBoNAEnAHC3sUZ0pZ4 hbGlnbjogbGVmdDsgdm HcuEkkGKorBFfbS710O HRvcDsnPlBhdGllbnQg OSesIHi8H8YwZdeikAP +MY40SWHhLN21uQXutA Ubi1yrwKv5LsDnVSQbQ PZ9pHajVCjqk3RtNVFa A33rnJCpg0K5QLYjpAa zzQCaYbJubNG1uM9bWC qmuxlps1zrbviqJfxxv 8cfoh08qP35A04oVXsa ZHRoPSIzMCUiIHZhbGl dqu8crB3vMa2+PGNvbC K9mOU9lD3rTHRxGpY6C RpyB485XlDggPKmBxhu t5wnh7xuwYt3AeA8DGO cymSosTiaLTO5t5QbGj 46E68oIOfeHARpPEChE UIyEAUgtUtxxn3nyQ0y Ii8+KBPmxWS9uTY9uA5 wMeAbXdZ0LBndR024Nl OvkLSbTdyjK89uG8Cbz XA+ZJOeDce6ZUZeeKob TQ3oqWUiVBerEh4ySHQ 2YzWpGuPtEPtpY1VsQY KzwghistmyjKT6YZLeY CUmjZ36Zx5dqOvoJXQw nQKByG3pcqhkk5dhgyu eQcDzWHVbIXr1FRl6RW LerJfoEzOpPDG8VeL9V OP5oWZycX9djYrntdql cC1tA8GrXAQqhnwrJv1 5iD8lKxRaCrS0ZZyuSe c+KbDGIJXgHCVRDr5RN FNVRTwvdGQ+PHRkIHN0 oZgrUAcaLLQgkH7yJXB nH9m1GaLwEsP0EMnkU0 SwUJKpwhdsTv71uV1mQ lOuZoW8XPzeX5WnfdB0 EUAqaKVgRBclZHL0F90 mr8C0PTRoLPOdFRZ5gK H7qW1hhUfgquztiWRlp DsgdmVydGljYWwtYWxp E457KQPzzXbkKkOpUzM yRlM5KtI6W0CkDbt3VI CodGlhXP0xwTEhFEfhI n5xvKbaaQnjVS1rENXt tfgbCEGtqI2hEBGgmAY efTddPK2dQBAfsjznu6 24PeKvAFI4OZYllPGzZ 1VqjK5kMuHhOARtXKVk P1UjsTZaBCqbP227QXp zGbK4GSOwhtGwE7BoPF IgaQbpKzP3s8B0Tl46S CBZZWFyczwvdGQ+PHRk HVI1yQbuMBgdLLOdyW0 xMMMvO3v7RmFcVpT5SH wiW0LtMVMzoeqwPl69s N1rMeRoXvL2TToqT4Sc hnE5OBWljGCaVXeiKHD 7D91qn2K7PCNtUHPdQU J4iHQ2hR6zjCcntnicc GVmdDsgdmVydGljYWwt FJdsB501LGLiaEcyStP FTUFMRTwvdGQ+PHRkIH W4fQhpFUicACUklJ7vS UPpT6z3OzNsSkY1YIax U6QuCTRybaigWz28uK1 sObAzDmF5AXmeX3Ddwt Z3SPNtrACoNJtoTKW1B 42yj1B7DKLuLRAfKYB4 yPW1hJ4etLfvntfppPC mdDsgdmVydGljYWwtYW nsD806IGLyjHdeNrGvN LLlXD0taJzozSF+PC90 iy63R5TrUnydWsv8GVP mLNU9iCQ6eZ6eJWPoNZ fgv8W8pDH3F3HwfbBtr i6ol2xeQRPjNEgyT13i fHIcp2O3SMXxaBJ8SSS giZqxPlDonT29Skz+PG BhbPamp2ZiHswgo6scl 0pqcHu7RdZrALCysuYq lXmgDLQ6c2WlTv05B39 sIHdpZHRoPSIzMCUiIH CwfApxwf9ogD8fTn9+P BGcpLA9lGS8oP2uNhMv DgG8OFqwD819PhFqzXQ pBsfan4cyc1ejoDk8Yb WdOYSqovFdwAckREO4z 2BzFl74T2XamEwan5Cn Ijt4tz51jJRad0F4jIK 2R6ZvDYYonymctCVmjC ezNT4yLHOxcjkdFVLsv Z8qSUNmL0m9GlWnGaT7 MDjcK1EszwZ9UZTcuLQ aFJFwhNMQaJ6ayaevh3 wznorcMkWqAZHdKXq9C Ub9ZLAfkZklHjPoWNQ3 DdY6PLO2xQJfqJ6ngLd hwyiygJ5mOfb+UGh5c2 webOKnLZ8lrCM2IJ59L O90hJAff8B2sDD7E5Jf ZFJbfbbkogwbeQX7SOA dPHOifI47Fp6xrOkeQm 3oMZAaJYB3LGRpmBRuE 6JliS2bBvFmQUIbTTKd T2WclNVmEHldY875FNv fIsY3PPZyflXnB4TuXD XbxShbPdN7n9S5Or4XZ N61BA74AE77oROnc8W9 yAC9M0VjREZyoxexjhk cbWU7SUGwELKikU21Zs 2udZaoTl6hXVZpLMU5R FXtmWRcT3TxcD9uMeTu JDRiNEQtX1JunXSlLGr kZ848URhqDnG8JDRavu HxW2BuBCPywLldGlT8q 9E0Pe0WNk18FW96RS42 iUEgg1U5eHZ8D2TyBVF pjsjrfsyqkHP6WVPoOJ GbnA84Cy1pzHbeSz7wC HYbORA7IKDfwATiM3Xk yA6lToSzSQXtICJwE1Q tdQDlUWcoY555GQfiCn W2QSGldaXkS5RePSZxl CnwJoQ3y4O7Rn8UKQim cad3A2QoLdkpwAS+PC9 3VIJqHZ58sCWwaZScd4 tcxPt1HkOpFJSyVND0r QvuQQrap6VzKIDlJ41n bGF (more content not included)... Normal [facility] CT Spine Cervical w/o Contra ston 07-19-2024 [...] MD 07/19/24 8:09 pm Technologist: Nayla YUSUF [facility] ED Clinical Summaryon 2023 ED Clinical Summary [facility] - Emergency Department [address] [place], [place] [id number] ED Clinical Summary PERSON INFORMATION Name: TOOTIE NICOLE Age: 48 Years Sex: FEMALE : 1975 MRN: Acct#: Visit Reason: Neck injury; NECK RT ARM PAIN Arrival: 07/19/2024 18:33:44 Discharge: 07/19/2024 20:53:00 LOS: 000 02:20 Check In: 07/19/2024 18:33:44 Checkout:07/19/2024 20:53:00 Address: [address] [place] [address] PCP: Roemo Chaidez DO PROVIDER INFORMATION Provider Role Assigned Unassigned Angela Fisher CNP ED PA 07/19/2024 18:36:34 Alona Acosta PLATE GRAINER APPRENTICE Nurse 07/19/2024 18:48:05 Viridiana Coleman RN ED Nurse 07/19/2024 19:36:23 VITALS INFORMATION Vital [...] Strain Follow-Up: With: Address: When: Romeo Chaidez [address] [place] [address] [facility] (1) Within 3 to 5 days Comments: Take steroids as directed until complete. Use muscle relaxer and pain medication for muscle spasming and pain. Please contact orthopedic doctor that you have seen in the past for follow-up. Ice as often as possible over the next 24 to 36 hours. DIAGNOSIS: Cervical muscle strain; Neck muscle spasm Patient Understands: Yes - 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 verbalizes understanding of instructions given Comment: [facility] ED Note-Nursingon 07-19-2024 ED Note-Nursing PT. [...] A&O X4. PT. has a steady gait. [facility] ED Patient Summaryon 024 ED Patient Summary [facility] - Emergency Department [address] [place], [place] [id number] PATIENT DISCHARGE INSTRUCTIONS Patient Information Name: TOOTIE NICOLE Age: 48 Years Date of : 1975 Reason For Visit: Neck injury; NECK RT ARM PAIN Arrival Time: 07/19/2024 18:33:44 Primary Care Physician: Romeo Chaidez DO Attending Physician: Brenna Yoon MD Comment: Visit Diagnosis: Diagnoses This Visit Cervical muscle strain (S16.1XXA) Neck injury ([id number]) Neck muscle spasm (M62.838) The Pharmacy at [facility] is open Friday through Friday from 9A to 6P and Friday and Anatoliy from 9A to 5P Prescription Information: If you have been given a prescription for narcotics, seek immediate medical attention if you have any difficulty breathing or any sudden status changes such as confusion and sleepiness. If you or anyone you know is experiencing suicidal thoughts, mental health, alcohol and/or drug addiction problems; contact the Mental Health & Recovery Board [facility] 26/05 Crisis Hotline -Text 1GWWA to 515305. If you received any narcotics, sedation, or [...] legal documents With: Address: When: Romeo Chaidez [address] [place] [address] Business (3) Within 3 to 5 days Comments: Take steroids as directed until complete. Use muscle relaxer and pain medication for muscle spasming and pain. Please contact orthopedic doctor that you have seen in the past for follow-up. Ice as often as possible over the next 24 to 36 hours. Medication Information: The exam and treatment you received today in the [facility] Emergency Department were for an urgent problem and are not intended as complete care. It is important for you to follow up with a doctor, nurse practitioner, or physician?s preschool assistant for ongoing care. If your symptoms [...] of medications post discharge. Please inform your acid retort operator/provider of your visit and for further instruction on these medications. Any specific questions regarding your chronic medications and dosages should be discussed with your primary care physician(s) and/or pharmacist. New Medications [facility]/pharmacy #[id number], [address] [place], [place] [id number], [phone] acetaminophen-hydro codone (acetaminophen-hydr ocodone 325 mg-5 mg oral tablet) 1 tab(s) [...] Continue That Have Not Changed Other Medications amphetamine-dextroa mphetamine (Adderall) 20 Milligram every day. amphetamine-dextroa mphetamine (amphetamine-dextro amphetamine 10 mg oral capsule, extended release) 1 [...] every 6 ho (more content not included)... Normal [facility] Coding Summaryon 06-18-2024 Coding Summary HTMLBase 64 QqfmetmaLJk7qUg+PGh lYWQ+KL4SLZIpK33yjA NhmF5sM6RWBWkPPfedC SJYYNsMBpHllsZvIN6j aXNjZXJu IC8+IF8zRTNoOhgeuTL eg5N6cIK6V18wxg5qXB ofpLN9YVOgOlMuhokbh 6gwbBl0FNtnEucxHeRt THOfgJ96TXX3yK92Mj9 4jRWmzIFzt6yvsJa9Ar PoXTAcDCO0jDouSLnhz 6WrHNLgW99huKWwe3U0 IGNvbGxhcHNlOyBlbXB 0iK8cOFsjmiwoq5pgkm joBoa6tf52uFZdj3B7j MW5V8FycqQ1JZMucIMx FztvhTKYcZ1ibsbfn3v iguvsTgVgIWYwLGx2BE j5YMQysLorXqJkMQ75W PR4MUQwoyGqB8EtKEBr pIquXcO7v2C5Tr8TL0T TEaopE5FHSGALWRfajI Q+UV19us58O4OgTcblN qt5SLRhIHY3nUA9cN0x BZNgMHiru5P2hOX3I5S fflNxcd0mm1sqDZLqRZ scG73ewPWaz5Y0LYBni RC7DRYttTncIbTfdX77 Oyc+IOCpsRgup8UfPdq mx2krg5ugmKk0KbgtFF JeqiLreHyfLQU8g2CxP r6dDZNqwCU6lMR5hY8z JbTnSuJ0PDhqU174ErK amCYlGuczM25rD0GohS A+AJPgQgf2ETGhgDqqY N8gI3BbZABkbnhbjJRi wMxjWL5sJFKuxezeCBC tuH8eDFCsZ9y9QvWmUn B9KFsjT0XrIMYrggfoM l90xX6fCkRgYrP3YXbx X4YejdV5QRNlcMXfWPs uSAN0R73cf1B6GOKsDS WxQWZ2iNV0aW5qmFnpo jogbGVmdDsgdmVydGlj HBztZLddH844XUMrgKp nPkNvZGluZyBEYXRlOi AgMDgvMTYvMjAyNDwvd GQ+HFPsUOB6aUuoCSWe iASmRLkoHo7sfSvaoMc xFQ2yJVUseugeCUWdkE 6mRTBeeJDoaSjzMH9mZ NTikcgxb177XhAyTFR3 OLBpmJRcK5EdtU4zGhL qXMLsASHlG3YosOPcKE twT897HLaeQrF4ZPSho oKhR0PsITJddQjbUfY6 s3B9Kt9Xu5UohugzG6D xvNAiXlLpOnwaUJg6I9 RkPjwvdHI+IZ36YYVmH V97WDd0OGH3aOjwUTqe XWFwZ8MxpT9sJmHrPZI kZGRkOyc+PHRhYmxlIH dpZHRoPScxMDAlJyBzd HiuGI0hAj5aVQUpAZQj fGikcRFqWyLre9miEJF zVCcgVX3qqZgaV2ZzrJ V9PBTze7r3Ww37Q40qD 3JvdXA+XOAuqIO2lMP8 qK6gGrQwKfL5ABvvG40 0JzBwgUIpZjglg3zug1 vrmNb1NbU4XLOysgSbg HtvGSR3j7ZjNo78Y80z IHdpZHRoPSIxNSUiIHZ ynBeaqn4ypR1hWk5+PG QhkBD9iZW1oG9jUkDzD xB8DUyvK862IeRgdKTb Jicwh1bgi9oihOg7JpP jXCKbzbIdjLftGGY4h9 EwKt06I1BpbDunx7CcJ ug1yq20jZOmu7M2uAQ7 C5YlFXHpwipxoOSwmIf gDS1cXLKfpnxhGQZjbQ 5yPUDuV1j6UsOoJnI4S FfhT9OmipH5ZRUykNGo DUGjfDLSrI8yvmxig2z igvnoEiGzTJAqCBn1ZC e6WUCviPcdJzTfVOV0H hS0JFS0pOCuwI2ndMzi injwzI2yNll+DVH3qSO nwUESBP7yMvisoOZ+PH KmBXD9iKajFTqkWPVhj U4uPLObV0i9XnXrSkO2 RNvkC7TvafT1TQGmrHK lEQMtiJLAzO5dbgpcq5 gekzbxPpIaGJAcYEm0Z Tp1HWEbfIhbNeAcXNP9 WrJ7DMA8wDMzmY3twWc nxyxxpX7xVsk+QmlydG gtPQF9AWy0W3UlUnt2H BEewFxgRX3luCFeCSxg Wr1eyZlkmCqwZF8gDVD jhonsl241MeUqe4ogPV EumUDhHTevVNC8V11mx 0L6AJFbGJNfQYO8zFH6 yR0zwAigcknieWVaeFq gdmVydGljYWwtYWxpZ2 08OEBfeOqbJhAzHZt5Q 7RmVft8PLNomQmkEK4o pCVnHRvnTj8orIstsTt cHP8aECGpyuhbk140Nk Kqf8eqPJUkdZVlRHtxA WS1X60bp9D9THKbWHEr UAZ2uWS3rQ9aiJslrpr gbGVmdDsgdmVydGljYW pwKEaoT775BYPhiYekN qOloSo6W8MdCuw8JCVc pElvNQ7ehSLlTZfnEh0 uzKsgqHqlQY9uHIAhtz szo737KgRcu0ykCGHob DUgBHixIVX9Q76vl7K8 ETCqORIoGGQ9oSW1gQ6 hbGlnbjogbGVmdDsgdm CugCnhEPuhZVrwV789A HRvcDsnPlBhdGllbnQg OAyeOKg9L6HsSprdhOJ +UP59GWZkTQ09qSIfhY Gnn3nhaNi2AuLgLCQlR EZ3nXhpRViii1JhCGOh G46uqFUvs9F0GDTpmUb cqKKlEsLbhZR2pS6mTR wnzepyt0cwprlmTyxbx 7mqhm40vV85W04zUIgx ZHRoPSIzMCUiIHZhbGl ibb9gbF4fBe5+PGNvbC K3iKG8iK1lRNQxIeN7Y XkiC547NjUhdDPnZgny b9hsz2gduOf3QbT0QKZ phpYedNjfANW4e1TiAz 51Y07dTEfuWXAuAFMmM AOuBHIqcPgzuw9bhD0v Ii8+QKGyqIZ9oHR2jD1 jTbGmOuO5HWqfV219Ci VqjHOaAltbZ89pT4Nap XA+JPWlWtk9FBLdhFua WP9ntFFhQXrmZc2kRGE 8ZbVqQtYpMYxmL4MuGU WxgevnjepynJU0DDUhA EUzaD02Az9myJdbZRBx iOEMfC8ooztao5vhzey eMdYcESGlUYr3VTj6IH GhiNmfXyUhTPF0IeO4B TO8gOFacL8qeAriekrj nQ9dS7KuQWOtzmckWz9 4oB5nGcKqTgZ6PJjxCm c+RqHNRSNfGTKOLn7VO FNVRTwvdGQ+PHRkIHN0 gVkrXRbtIFAnyL2rINF hV0m6ThNwCyC1XFepW3 RfQHFeyhtdPq54cJ1tN bXyNfE2RHkqK1PvgdH5 MVRjrSNyMNqbWYG0J44 op8D2GBNmOOVaQOR2fG N0zB4hoLvvvrpraQKzf DsgdmVydGljYWwtYWxp I752VFYbnTmyZoMbLaH zUfV9NuK8S9DhSsg7FP EurLqlAC1bdDYeSOufE q9feRjjnPvrWB3rUVQb nwmcWIMyiY5gWFDaxLQ deAuyVE1bCNRgabxgz8 85LsFySBP8PTKdrXMtG 7YnkD5fZdYqTFAoIUMz F1CubDXmJEozJ302JUu mCfO1JSUbfaZkY5MvZK KgjPmzKvC4q1A9Hr20N CBZZWFyczwvdGQ+PHRk LBY4aFimDDpaMOItgN2 eGMLiL6i1LiXnFgR9HQ yqD8HmACTssqtePa92v I9nCpVmZuG9RProT2Nk dwI7LEPdpMTsIPcfXXV 8C72bw1C7ZZWsGAXmIQ X0mMN6tO2zaZdjsccjr GVmdDsgdmVydGljYWwt CEyeO828UVOspQzzNwP FTUFMRTwvdGQ+PHRkIH O2mTybRFsrVSXaoY4tX AWzZ7n2YyUvEqO7QBap N8OeUDYvhsacPj82oD5 lEbRiRoX5EZulG0Cpno M0ZZRcyULfTXtlAWE4I 94gn1H0DLRqYCNyJFC1 sAJ9mI7oyOfmphrzwZD mdDsgdmVydGljYWwtYW muZ467YLYzhEuyJtOoE YKyTJ3ooOgkoNT+PC90 yv39Z5XcJrhyKfs0KGE rEZO7fNH3nW5aICIsZG end6V9xVH5U6JjpxYrv s6ho9wgJTYmWNolO84t jOCsc3A1BAQzoLL2ILN hyUtyBcYatR22Poa+PG XijAtan8ZdOaxto9coi 3pytXy9ZnBsGOPyqsBd uMcjNZT7i3YjKe22V32 sIHdpZHRoPSIzMCUiIH ChmMoaba3vfY4oVt3+P GDsvNW3vEJ5fQ7nLjZe IbQ4WSgqQ584UdPplET hNlqdy5rpp5eiqWi3Ot VxYSTnjdWeuBolFFZ2m 6AfTr41M1ZskYexh6Jm Spp9bu04pIFvl5V2uYB 8C2OtCEOqyahlmEFokN vmSZ8aAFMiqrkzGJKhj Y2aCSZrU9d8YnQbRmY3 HAooP1DgivI1STSwfRJ dEJFyxQKBjQ3nttqdp5 ucapswFfXtOLVeEDs3D Ce3ONIujHkwXaIjBZN3 QmE6ZCQ9vZAetB1qgZb kwbhntE0fTfo+UGh5c2 yssPZnOZ4ymGC6WI81O P73lYEgp2G1jTV3R9Ee EAHcotctimqovMO3OXV dMQJkzW32Tv3gyJwnEw 3oKUSkLSO6LUFemEDuN 2MhzL0cAfJgWTCqWJTc O2IdjHBqKRmgM505MHh mZnI9WSCoooOpG5ImZL GlsBviKzL5q6U8Ck2LA J29VH02VA09hXHts5C4 iPJ6U6CjNXQowffxyaz dxFG2WPWlJWHreH67Wk 3yfUszSw2vOCTqUQI1N BXrgXUxS5YcrM6sAmIs HKYtWKLlO7RhpMFrDSr tW472MTfyAwZ4OXLrqe AzQ9GcELNdhQswXhE5j 1J9Ta6ZBa98FP70JI34 rFMpt0X6dUZ0W7CoDDZ huhqwzvafkVH9QEOyZT DdrW02Up8tnEsaOf0oA EEpCKG7HSOrtUOzB1Wh wK6mVoFdHYOzEEEjQ5W zuKZvRSrmA775IKflMo A2OUOpyzXyX1QdRAXom VioLaM3m2P2Hn7ZFRpv mgw5Q8TtNsvtqEZ+PC9 5YKPbHZ31pEJukEQlx0 rswGj0DrDeJDMhWEM3b FcoRHoee5CfWOPcP07n bGF (more content not included)... Normal [facility] ED Clinical Summaryon 2023 ED Clinical Summary [facility] - Emergency Department [address] [place], [place] [id number] ED Clinical Summary PERSON INFORMATION Name: TOOTIE NICOLE Age: 48 Years Sex: FEMALE : 1975 MRN: Acct#: Visit Reason: Headache - Recurrent; MIGRAINE Arrival: 06/07/2024 23:02:53 Discharge: 06/08/2024 00:47:00 LOS: 000 01:45 Check In: 06/07/2024 23:02:53 Checkout:06/08/2024 00:47:00 Address: [address] [place] [id number] PCP: Romeo Chaidez DO PROVIDER INFORMATION Provider Role Assigned Unassigned Yovani Negrete DO ED Provider 06/07/2024 23:05:02 Anel Cerda [employer] APPRENTICE Nurse 06/07/2024 23:08:53 VITALS INFORMATION Vital Sign [...] mg = 1 cap(s), Daily, 0 Refill(s) amphetamine-dextroa mphetamine 10 mg oral capsule, extended release: 10 [...] Family/ Social History Medical history: Resolved Migraines ([id number] -[id number]) : Resolved.. Surgical history: Rhinoplasty ([id number]) on 07/10/2016 at 40 Years. DNS (deviated nasal septum) ([id number]) on 07/10/2016 at 40 Years. Nasal polypectomy ([id number]). Appendectomy ([id number]). Hysterectomy ([id number]). Colon ([id number]). Comments: 11/18/2023 21:34 Etc/GMT+5 - Shuff, Patricia RN resection. Family history: N (more content not included)... Normal [facility] ED Patient Summaryon 024 ED Patient Summary [facility] - Emergency Department [address] [place], [place] [id number] PATIENT DISCHARGE INSTRUCTIONS Patient Information Name: TOOTIE NICOLE Age: 48 Years Date of : 1975 Reason For Visit: Headache - Recurrent; MIGRAINE Arrival Time: 06/07/2024 23:02:53 Primary Care Physician: Romeo Chaidez DO Attending Physician: Yovani Negrete DO Comment: Visit Diagnosis: Diagnoses This Visit Elevated blood pressure reading (R03.0) Headache - Recurrent ([id number] -[id number]) Migraine headache (G43.909) The Pharmacy at [facility] is open Friday through Friday from 9A [...] alcohol and/or drug addiction problems; contact the [facility] 26/05 Crisis Hotline -Text 5QLML [place] [phone]. If you received any narcotics, sedation, or [...] legal documents With: Address: When: Romeo Chaidez [address] [place], [place] [id number] [employer] ([employer] Within 3 to 5 days Comments: Call for follow up appointment Return if symptoms worsen Also follow-up with your neurologist. Call to make an appointment as soon as possible. Medication Information: The exam and treatment you received today in the [facility] Emergency Department were for an urgent problem and are not intended as complete care. It is important for you to follow up with a doctor, nurse practitioner, or physician?s preschool assistant for ongoing care. If your symptoms [...] of medications post discharge. Please inform your acid retort operator/provider of your visit and for further instruction on these medications. Any specific questions regarding your chronic medications and dosages should be discussed with your primary care physician(s) and/or pharmacist. New Medications [facility] [id number], [address], [place] [id number], [phone] ketorolac (ketorolac 10 mg oral tablet) 1 tab(s) Oral (given by mouth) every 6 hours as needed for pain. Refills: 0. metoclopramide (Reglan 10 mg oral tablet) 1 tab(s) Oral (given by mouth) every 6 hours. Refills: 0. Additional medications on your home medication list not specifically addressed. Please contact the ordering physician if you have questions about these medications. amphetamine-dextroa mphetamine (Adderall) 20 Milligram every day. amphetamine-dextroa mphetamine (amphetamine-dextro amphetamine 10 mg oral capsule, extended release) 1 [...] mg = 1 cap(s), Daily, 0 Refill(s) amphetamine-dextroa mphetamine 10 mg oral capsule, extended release: 10 [...] Family/ Social History Medical history: Resolved Migraines ([id number] -[id number]) : Resolved.. Surgical history: Rhinoplasty ([id number]) on 07/10/2016 at 40 Years. DNS (deviated nasal septum) ([id number]) on 07/10/2016 at 40 Years. Nasal polypectomy ([id number]). Appendectomy ([id number]). Hysterectomy ([id number]). Colon ([id number]). Comments: 11/18/2023 21:34 Etc/GMT+5 - Shuff, Patricia [...] Smoking tobacco use: Current everyday tobacco Comment: 1/2 ppd - 09/15/2023 21:47 - Olimpia BREWSTER, [...] Chaidez DO This Is Your Medications List amphetamine-dextroa mphetamine (Adderall XR 10 mg Cap-ER) amphetamine-dextroa mphetamine (Adderall XR 20 mg Cap-ER) aripiprazole (Abilify [...] PM EDT With: Romeo Chaidez DO Where: [facility] Patrick Normal Smoker, pp_set_radiology_ subspecialty, [facility]\.br\ Medications\.br\ What How Much When Why Instructions\.br\ Changed hydrOXYzine (hydrOXYzine hydrochloride 25 mg Tab) 1 Tablets By Mouth At bedtime Dyshydrosis Pickup at [facility] [id number]\.br\ Changed ondansetron (Zofran 4 mg Tab) 1 [...] day (in the morning) ADHD Pickup at [facility] [id number]\.br\ Unchanged amphetamine-dextr oamphetamine (Adderall XR 20 mg Cap-ER) 1 Capsules By Mouth Once a day (in the morning) ADHD Pickup at [facility] [id number]\.br\ Unchanged aripiprazole (Abilify 2 mg Tab) 1 Tablets By Mouth\.br\ Unchanged dupilumab (Dupixent Pre-filled Pen 300 mg/ 2 mL subcutaneous solution) 300 Milligram\.br\ Unchanged fluoxetine (Prozac 20 mg Cap) 1 Capsules By Mouth Every day Anxiety Mild recurrent major depression Pickup at [facility] [id number]\.br\ Unchanged ketorolac (ketorolac 10 mg Tab)\.br\ Unchanged [...] if questions or concerns \.br\ Pharmacy Information\.br\ [facility] [id number]: [address], [place] [phone]\.br\ Allergies\.br\ Imitrex (Rash)\.br\ Tape (Chemical burn)\.br\ penicillin [...] instructions at home:\.br\ Medicines\.br\ ? \.br\ Take qpth-rtl-hjxrens and prescription medicines only as told by [...] a problem, search for a local or [facility] mental health care center. Public mental health [...] with Attention Deficit Hyperactivity Disorder: chris Houser [facility] Family Medicine Office/Clini c Noteon 05-18-2024 Family Medicine Office/Clinic Note Family Medicine Office/Clinic Note Chief Complaint ADHD F/U HPI Staff Patient here today for 3 month F/U ADHD SHIRIN 02/24/24 Labs 10/01/23 Patient asking about a new RX for Hydroxyzine/ itching ADHD followup: Sleeping well: Yes, 6-8 hours Blood pressure:Reviewed, _ Concerns/complaints : None Controlled substance:YES Urine Drug Screen done:UTD [...] was negative Mammogram: overdue DEXA: age Pap: CELLARS SUPERVISOR - Dr. Sarah DAVIS Smokers/ former smokers: Low dose lung CT: DUE List of Providers: Neurology - Dr. Lisa Martínez Electrical Research Engineer - Dr. Sarah DAVIS Derm - Dr. [...] TSH: 0.96 mcIU/mL (10/01/23 16:55:00) Future Appointments [facility] Patrick Appt. Date: 08/11/2024 2:40 PM Scheduled Provider: Romeo Chaidez DO [address] [place], [place], [id number] Phone: -- Fax: -- [address], [place], [address] Phone: -- Fax: [phone] Review of Systems PHQ Score Initial Depression [...] Nausea) Chron (more content not included)... Normal [facility] Comment on above: Result Comment: Elec tronically Signed By: Romeo Chaidez DO.thaddeus\Date and Time Signed: 05/18/24 18:48 EDT\.br\Electronically Co-Signed By: Otis Ambrose.br\Date and Time Co-Signed: 05/18/24 14:45 EDT Coding Summaryon 04-27-2024 Coding Summary HTMLBase 64 ZwerrylfLKk3kMn+PGh lYWQ+YA4SGDTcX50rgH CpnE6cX9HYTQdJAhagD LJFMIhZTqAgffUyHE8a aXNjZXJu IC8+SS9jQUEfExutaAM vp5K9nVP8T01flb4kQS dsxXQ8KQIjSgKoxywbc 7hlxUp0AQzuQtdmGiBm QFRavD73QKS6yW29Mv5 7qXMisACey9acmOq2Uk IcONHhWLB1lJuqMXljh 3AlCUIcP38ynOHer2N1 IGNvbGxhcHNlOyBlbXB 4uD3sNHfotckoe5ijel fdEfm3mn10tVBkq3F5b BG0S7AozuP0VVFszSLs EihenBBTzM2rgvgpr9z pbhpdVpOlTVDdTRd1GO f0RUNmuOssEgKjAB71V AH5LITjwuHrN8XsZQFa zJksFyH7n8M5Hl9WE3P XUktkL4EARZJPZVldaX Q+IG93ij87E5PpCcebE ly6HOTyBJH9fHO1tQ6t KXZoDRnke9A5mMO3V6H zwpWkbo5uo0mxFFZjMX xwG69rlKMxo1U2KPYkz YS2TYOyuSylOoGrqT42 Oyc+BRMasEzom6FqEfj ol5jam7sugRi1EfqxTS MxrnMnyGhqWKO8z3NsQ b1vSNGadQV9eNR5oV9c LmKyXuS0FZwpV856CgD whXJsTtfvJ88tR9EddG A+SVLlLbr4YXZvvEtvS R5lL7UqRGHxensckYBc hBjpRC2pIIYetaugQUQ kcJ0bGDXtK5k9XpYmTa V2ETvpG3EgMMQoqgalA g56jT3cSeVcFjZ4YAbr R6TylcB7OZTcdUFhWGa iXAE5F44ck4X0TCReQG PmYDM4aYC1gE8niZeqb jogbGVmdDsgdmVydGlj NMusKMqaP697MROgvNn nPkNvZGluZyBEYXRlOi AgMDYvMjUvMjAyNDwvd GQ+CDHaQLT1gDfhGKTi jTVpHTuaDd7toHdlvPw pBR1mTZNdvhflRLQjfU 0qRPDgzQVrkWglLN4zC UFnkiinu672ReKlUAQ1 QFNpcHXiP9DqzB8oYgD sSIRdABJmO9DvpFYhOH ynP697VLphGzO0JPQji cVmZ4RaADCzsFtsRuA0 a9B5Tr1Jc7TsymppH3T kwYGeCqAkNjnbGKr2R7 RkPjwvdHI+KU45VYDyR Z07AWj7WKH6xKnpLOos IJSsJ4VdlK6zVhAcGXA kZGRkOyc+PHRhYmxlIH dpZHRoPScxMDAlJyBzd BduYW9iNc5jDMBpIEKl oZhveRSbWpKsw9waHFV jSPmzHJ0yhDrfH9GpvO Q5VTTad3t5Iz62Y35pM 3JvdXA+YNAyrYG0zBO5 eK9qQvUaKfD2IFotQ82 0LuOwrYToVokwy9ucd1 xulOk4VwW3QXLaegUxm VuqYDQ4z4ZkDa19I32o IHdpZHRoPSIxNSUiIHZ emUivrl1crY5oFp1+PG UdwRL6lFT2sO8uLyRjU jS8TXwzX416SiXtbEEf Pbsfs2evn0dpoGq0QmH rAQOzekRrxJgsLLY8g3 OsWu24E0DpkCdhy0OsH qi8go77fFDpq1Z0xAP8 E6OiFWCdyxhcqTAchZd zUP3bERKtclfzLNJmjF 7aYSTpT0t3DgHtFwI6P NqdO7OjhtO2XQJwnPCz PSIqzCQDeS3cepqxd5s tqgccAlBxTOVjLGd5DG g8CJTseQmaYqDnHVV7I pK2OQB2yPFgeB5bqJug jgrwrA7fBbr+DBX8cJD taDKYBZ5pDkgwtXO+PH AkWLD7fCmwFIspSYSep J1pXPDsY2y3ZgEvRsM4 CQytU9UjuzD8ZMTxkGV zYMVjfYIWpG7xienbg7 qifwzhXpBzHZYxPGy7W Ig1EQUxkYoqDbSoGKS4 RoN1YRX9dSKoaX2woHh zgdgumR5dEwn+QmlydG khLXX3TPl9D4BjAzb4P OOoyCtdZR7zaSCpFNwd Lc9ayXwjmSqrFG8bOBF xpkkss334LkSwf3cmOL IrqIZeRZkbKLB9V08iy 1V8JTMmNLFmUQV7cOI0 qQ7bqPsjeugayEColYk gdmVydGljYWwtYWxpZ2 32HSKhjFnrHxUwPQv7F 7CcWec2VYBbjEkhNO2j hZPmPSgoEz0vxCzrtTn lPV7gSQHphmocl010Tm Dgm5izBSQfuPAsFWfhF YD4A92mh9M7PZIqZJFo EGC6eWE6kU4pfQgyedt gbGVmdDsgdmVydGljYW cgAZvqB128KPRsjSbbZ wPjcEc5M5NlZyv5WBPa gTvaYB3rmSToBHfmHu6 qqHzahQfnWI8mGMGwaz qck927LtVpg7sxKNVrp UQzDUhqHTI7G52hf5U2 MGAiMPMsGPG4aDS7pR0 hbGlnbjogbGVmdDsgdm DhvMasAEfuPBepN783J HRvcDsnPlBhdGllbnQg FTndOBl0K9QcUaspaIL +CX91HWFpFT31lQQtaV Sqh4mhcDz6RlDiQWFsM AA3qEgqLSnve0RhNIWv T82fzVTxv9B2OJOavUs dzDGsYpVycNJ8cH2iST vzefloi1sldewhQuudc 6qsob93xB07E04aGLbe ZHRoPSIzMCUiIHZhbGl tzi6sqC3dFd9+PGNvbC K6iUI7uQ2xPPAnIbI7L HgxI765NuRkpLZmQfmc c8tax6bynAy9TqO2MBZ ancSjbOrgEWW9j9OmFo 99Q49aEFmgTUEoLNJbZ JYvJDZvtGasnt9qeN6a Ii8+CJSskZO9bGV2pB8 mDlZhKyT1NMsmQ903Ij OhaKVaKdooA06kC7Tzx XA+DNXhQug1ZNFplDlp YB3hqKFtBItcZz4iJNA 2ZtJgCbAfYHdcD1WeUI KcfwbscizgxPT1BSTgG ABbhD06Tz1dkSsaABDw tWEKrI0sqtgll9mjske hPtEoFKWhUVz9EIx7WN YisVnmSyJdNKA9ErQ9V CE0wNBioZ5soHmstttu tW6cY9QjIRHdlhvsAu3 5mY9oMiSiTeF7TDmqCw c+HgXDJISzEKDFJj6NI FNVRTwvdGQ+PHRkIHN0 fVugVOgjYJHisA5nLNK aX7a1GpVcPzE2RHctF9 TrSQImxkyrGq27sL0vX rCqLdR4KWvtQ6GynrJ8 JUJloWMuQYtbPRM1P54 du4Y2HEPpTAZsDOJ6mP D7dE0zdOqlxkpbuQOat DsgdmVydGljYWwtYWxp I047DHBmuAjbBwKhTeQ aZoP0MyM4J9SuWsz6PJ EdpIgkKX8qnCQnSIweC a8fdHcqsKsjCH9lZYTb wphkABDfpM5cQWTarKJ ucBjjWI2vSCEcrxrzd8 52FyHoLQA8SVActRFhY 7GiyD4nZxIdQFWpAGBg C5AdvRYqKMbxW057YRp hMlU2LAMlocJeC1KrML DdiZmlYtN6c2K6De57A CBZZWFyczwvdGQ+PHRk QFZ8fAsxVKbdPGNzuT0 fBFUnV8i2CkZfDaQ0SO jeT6SxOYQvcwuvBj21d S8kIlHiOdT4GDgeO6Nj dvB3GQFadWMyYJjdVDH 2B71kc6L2ADRkYXBtQV Y4lXE4vD9buYavsykhq GVmdDsgdmVydGljYWwt MGwjQ925DSXctVjtWfI FTUFMRTwvdGQ+PHRkIH B6bWzjSPhoDWHfhT1aJ CBzS3q6GkYtCjO4ODln H6PfLUMjkzoxNy56nQ2 pCmYzSsR0KOrdE3Dazw A9EWJzxKWzZYojKAJ8K 18nv5J1BFBpILTwDTE8 gNW8eG5gcFobixzodFJ mdDsgdmVydGljYWwtYW zjB667WBZriLmmUbGgD XOdKI0iwVvwsWP+PC90 ih81U6TpKafjZse8NTL eOZQ1bBH4nP1iZWSsEW kbk3O2vNH8E9RscfLzu r5ic5wgGGFtKPkeD32p zOKfn1J2OFPzmZM2KQD vfYvvMxRmhR68Ean+PG HknIjyc2YxIqneu7nee 4ktqOl5SlIiNSXkqhFw jXotRNE7p7TxSb91F77 sIHdpZHRoPSIzMCUiIH JuxDslws6glS9qQb6+P URntSE2eVH0qQ3iKlKx MhH8LDihO675GmDinGZ tAxwyc8jpk5agpTs8Ia BoVBHymbEayRszWUP3u 2XpFg03L5GdzEief7Aj Hfr0ts81uTMjn2X7sJL 5G7JfJNUkrszftXThjR muYJ8jCKKynqxmUIQrk P2tCMUiR5h1CaSeMyV5 SLpwK4WumgU7AJCoySM nOSQdaBLIdL1kfaoqo2 ssexbhIuMzRDJvQUc0O Wb8PDYlfIiiQpYhKST8 UjC8XQB0dBLnoI3ykPr ukhdkhU5mIkk+UGh5c2 rpkEJpSY5fcPB5WQ41G U79zJJld1J5dEY1G6Lw VSVohzrksakqgXW8DSR sWOPfqA84Br4kiSdiPh 6sWJYyBHE4TORejDLnU 1EikE6xFpXvELIuVTAq B0CerRCqZIctR872TPr eThB0DYGlkjVpF7MrSW OtuUhrAeH4y2J6Fq4RQ G44RB12SE34kMPnh3D1 qXH9A5ZeYIIlvyxhlii ldIG5NKJvWEXxlG58Ss 1yxIxvPi6tMUCmWWJ8G SIguVCbJ9AdnK9dAdTg HPNwBHJfR4HtwAJiKSf fP152PMhgBsJ1JMHaaw XsI7UhSAIucVieCoT6c 5T9Du6JMh59XO71HJ81 jQJtf4P1vLF5O6ChWZN utssujeaceMQ0AHWdWU SnxD91Hl7tmHnsAs6hY DLkKTN6KKZcpUBgH7Mw sC0jItFmDODlNHVpD4Y rwIDgWUzwN448UXpqQh U3YPAwruRlL6OvUPUmu NrtSlV2e6F9Qj4KBNnm iiy8I6CtBsrztRS+PC9 7SULcCZ00jCBidHTtu8 dswXf7BfYhTZJgLKB2h VrlSTkdv5JhIKMlQ05n bGF (more content not included)... Normal [facility] ED Clinical Summaryon 2023 ED Clinical Summary [facility] - Emergency Department [address] [place] [address] [id number] ED Clinical Summary PERSON INFORMATION Name: TOOTIE NICOLE Age: 48 Years Sex: FEMALE : 1975 MRN: Acct#: Visit Reason: Headache - Recurrent; Headache; HEADACHE Arrival: 04/13/2024 22:32:22 Discharge: 04/14/2024 00:21:00 LOS: 000 01:49 Check In: 04/13/2024 22:32:22 Checkout:04/14/2024 00:21:00 Address: [address] [place] [id number] PCP: Romeo Chaidez DO PROVIDER INFORMATION Provider Role Assigned Unassigned Jess Waddell PLATE GRAINER APPRENTICE Nurse 04/13/2024 22:44:17 Tru Matt DO ED [...] Neuralgia Follow-Up: With: Address: When: Romeo Chaidez [address] [place] [address] Business (1) Within 3 to 5 days With: Address: When: Lisa Martínez [address] [place] [address] Business (1) Within 3 to 5 days Comments: home call Dr Martínez's office for a recheck apt one Percocet if needed tomorrow. You are welcomed to return as needed T H SHAKA< ER PHYSICIAN< MODESTA Cornelius DIAGNOSIS: Recurrent occipital headache Patient Understands: Yes - 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 verbalizes understanding of instructions given Comment: Normal [facility] ED Patient Summaryon 024 ED Patient Summary [facility] - Emergency Department [address] [place] [address] PATIENT DISCHARGE INSTRUCTIONS Patient Information Name: TOOTIE NICOLE Age: 48 Years Date of : 1975 Reason For Visit: Headache - Recurrent; Headache; HEADACHE Arrival Time: 04/13/2024 22:32:22 Primary Care Physician: Romeo Chaidez DO Attending Physician: Tru Matt DO Comment: Visit Diagnosis: Diagnoses This Visit Headache ([id number] -[id number]) Headache - Recurrent ([id number] -[id number]) Recurrent occipital headache (R51.9) The Pharmacy at [facility] is open Friday through Friday from 9A [...] alcohol and/or drug addiction problems; contact the [facility] 26/05 Crisis Hotline -Text 9DGTT kt 416557. If you received any narcotics, sedation, or [...] legal documents With: Address: When: Romeo Chaidez [address] [place] [address] Business (1) Within 3 to 5 days With: Address: When: Lisa Martínez [address] [place] [address] Business (1) Within 3 to 5 days Comments: home call Dr Martínez's office for a recheck apt one Percocet if needed tomorrow. You are welcomed to return as needed T H SHAKA< ER PHYSICIAN< HB [facility] Medication Information: The exam and treatment you received today in the [facility] Emergency Department were for an urgent problem and are not intended as complete care. It is important for you to follow up with a doctor, nurse practitioner, or physician?s preschool assistant for ongoing care. If your symptoms [...] of medications post discharge. Please inform your acid retort operator/provider of your visit and for further instruction on these medications. Any specific questions regarding your chronic medications and dosages should be discussed with your primary care physician(s) and/or pharmacist. Medications to Continue That Have Not Changed Other Medications amphetamine-dextroa mphetamine (Adderall) 20 Milligram every day. amphetamine-dextroa mphetamine (amphetamine-dextro amphetamine 10 mg oral capsule, extended release) 1 [...] been 3 days, she has been taking asnv-dgd-uhchqvv medications at home for this, but did [...] mg = 1 cap(s), Daily, 0 Refill(s) amphetamine-dextroa mphetamine 10 mg oral capsule, extended release: 10 [...] Family/ Social History Medical history: Resolved Migraines ([id number] -[id number]) : Resolved.. Surgical history: Rhinoplasty ([id number]) on 07/10/2016 at 40 Years. DNS (deviated nasal septum) ([id number]) on 07/10/2016 at 40 Years. Nasal polypectomy ([id number]). Appendectomy ([id number]). Hysterectomy ([id number]). Colon ([id number]). Comments: 11/18/2023 21:34 Etc/GMT+5 - ShuffPatricia RN [...] Electronic Cigarette/Vaping 09/03 (more content not included)... [facility] Summary[facility] 0 02-24-2024 Ambulatory Visit Summary TOOTIE NICOLE :1975 Visit Date:02/24/2024 Ambulatory Visit Instructions Your Diagnosis ADHD Lumbosacral radiculopathy at S1 Smoker Adult BMI 30.0-30.9 kg/sq m Your Care Team Attending Physician - Romeo Chaidez DO Primary Care Physician - Romeo Chaidez DO This Is Your Medications List albuterol (albuterol 90 mcg/inh inhalation powder) amphetamine-dextroa mphetamine (Adderall XR 10 mg Cap-ER) amphetamine-dextroa mphetamine (Adderall XR 20 mg Cap-ER) aripiprazole (Abilify [...] AM EDT With: Romeo Chaidez DO Where: [facility] [place] Normal [facility] Family Medicine Office/Clini c Noteon 02-24-2024 Family [...] well: Yes, 6-8 hours Blood pressure:Reviewed, _ Concerns/complaints : None Controlled substance:YES Urine Drug Screen done:UTD Medication Agreement updated: UTD History of Present Illness Social History: The patient is not The patient is not currently working; on disability for migraines still stuck going to hospital every month The patient has 3 biologic child(troy) - and 2 step children 2 grandchild(troy) home-schooling her grand children List of Providers: Neurology - Dr. Lisa Martínez Electrical Research Engineer - Dr. Sarah DAVIS Derm - Dr. Francis Quezada - Dr. Langford - [facility] HPI staff / Chief complaint confirmed with patient Screening: Colonoscopy: Cologuard completed 2023; states was negative Mammogram: overdue DEXA: age Pap: CELLARS SUPERVISOR - Dr. Sarah DAVIS Smokers / Former [...] Pablo Vital to learn more about ADHD [email or web address].com/slideshows /ksll-gzhvmcll-gbic t-ppr-fgt-feet/ F/u every three months [2] Review of [...] me Seeing orthopedic surgeon Dr. Langford in [place] MRIs have been ordered by this provider [...] face with (more content not included)... Normal [facility] Comment on above: Result Comment: Elec tronically Signed By: Romeo Chaidez DO.br\Date and Time Signed: 02/24/24 18:58 EDT Patient Educationon 02-24-20 Patient Education Mental and Behavioral Health Attention [...] attention. This may affect cognitive abilities. ? Hyperactive-impulsi ve. With this type, adults have a lot [...] Losing and forgetting things. Symptoms of the hyperactive-impulsi ve type include: ? Restlessness. ? Talking out [...] primary care provider or a mental health assurance services manager health care. Your health care provider may use a [...] Behavioral management. You may work with a men's golf coach who is specially trained to help people with ADHD manage and organize activities and function more effectively. Follow these instructions at home: Medicines ? Take xwxe-xby-ltgbljg and prescription medicines only as told by [...] th (more content not included)... Normal [facility] Coding Summaryon 02-04-2024 Coding Summary HTMLBase 64 BeyxuyofULx0zYd+PGh lYWQ+MI6KDWVpK38cfZ KzpV3fT0ZDJFsVZqbgU ZYIBAkOGvNywtQiBN1s aXNjZXJu IC8+HK4bSIDlNpmhvRX yd1K2rHP5Y01mwm4wRD cilBU4EPZgQxXpcybkx 7neaJq5WNudKdfoUpPb FTUejG53HXN0jT74It2 3eXOisLFyn5kvuCj6Sh YrNMWdJAS7gFgcKBgop 4VwTDRxR78zlEZvs5N5 IGNvbGxhcHNlOyBlbXB 5aS2lIWziewvyz8vxdu wgEvg4uq91rAWok4V4g IR7S5UhfbA2SSOciGGt BqumuWIJyB4odjiin4m oyxavNeBnOSPrMTk0FB v8RDFihKfxGrIrFR48B BI4IBQxegJaS0CnTAIj fQtxZrO9h7V3Zv2YF3I OYjwkM1QGJUOUARxjoB Q+HH93pe09J3ShNscpE ky8SXTqXOY9vEG9yM7u CESoFTuds9Z1kMM3A2W eqiYiwe4md3bmNAKmGB hjP95daPHsw0B9ZAOuy KB0JSKlaSwhAeSmfU14 Oyc+BKKfrGkhd4ExLxc ca4cbm2levHc1VwvlEZ VjvyExuYvoYIT4b9ExE l1xSYWpsLW0wSX4vO3q BtVsIgZ3GFvfF027OnB wcTKuYxmvB54aJ0AtoF A+DAUjDip9DCMztJztN F0oH2KiCEGhafuitQXu xEwsPZ0sHADmxskwKUU hzN2gIVZwE8j8QhFaVa D0WLtoR1XaVDZtuponZ r88tX0rXhVzVdP2KHbg E5GqgiB6WKQfhSEuAUf dGHS6X02ze5B1SXGfBK DaCCT8rLJ8bA3nqWajv jogbGVmdDsgdmVydGlj NFzbNAijD745KIShcBc nPkNvZGluZyBEYXRlOi AgMDQvMDMvMjAyNDwvd GQ+ZZOoCDJ8gDuyHWBe wRTaTZjoLe8xeGboyDc sPC9kXWUbwwzwYJHbnS 8yBGPmhMXasEapIE8eJ IYkmwryr646ScNuDRJ9 POCohCMlA1WfnY0iJuA rVKHaKLAwF1DibWLxHG byE281YOwsBpH5QCPbc vQjU9VsQDMbdFsvRpE2 l8B6Ya3Fn5LkldpaL4W jxRBfCfRpYtdzXXh1F0 RkPjwvdHI+WA01POBmR J24MJd2QDE4vSmhBHzq ZTVkR5MkqU4dOoAxYYF kZGRkOyc+PHRhYmxlIH dpZHRoPScxMDAlJyBzd MokGM4pFv5kSIYlSCMv aPhmxBMoRiLqc1nkPUU cYOzaUJ0vxEewO3MueQ Q1GPUaw6i8Uw80P15kV 3JvdXA+PUWnaCT8iYL3 jH8fVwEbVtQ7QZggI84 0InXdzVHxHcnug2llh0 bylVz7CuJ3LHFljwYgr TdcFNH7p6NcVh58P67q IHdpZHRoPSIxNSUiIHZ blYsgxs6mlL8sLx5+PG XebAE4uFZ7yS6jIxQxY kH5UWrnC876FeKzbBJg Vxcmf8qfx1bqaLu9RpO rLRIzmpHneEakPEI4y4 CiYh29E0AcyJgzq2MtC tw1al85aXIfz5E8eAK8 J4UjOGEbcphcbTDdyWg bVK6hTEXfeppdGTBiiS 1pTSZzS3w9WtTxVfH3I EywV6AaxvZ3BJEmdPGv ZRFvhBCOuQ7nufzed7p xzpmiPsWbHRClUHw1ZA m9RIXfcNjbYrXxCEY4R oF6PMP0cKZezK3adNze inbdgL3eOwk+RVC3nCV yuVYXEN5sLcejuQA+PH YqBCY9pKdtBIidTVHvj S7aQTJeV7w1SjFrJzA2 DYlyG8TqdvY3VNGwhTS hMEUkdONMsC6ibvhiq1 omjbvoRpJyNNFnFPc3H Yy1OCJbmNxyUtTvAHO4 AaH6PLI6cRNofP0yfHx nbzevlK8gBeo+QmlydG fzMBN7YPs0I2JyTyp9Q DDypZncBW6gfQTyXMmd Kq4ybVpsgHkdZL9vEZI ijwpat674DfVix6mmEN IjqWRlGXvwILB5J96gt 0C6BRVhCFLsKNZ8bGU8 jG7zsUpyrvtznQNvtNy gdmVydGljYWwtYWxpZ2 97MYUqxWrcYtGkANq7L 7NzMcj9ZJGksKwjLU1s oWDbYNadUd5nxPaxaPb pOY2hIJOalizqb986It Imj8jcMQCqqBZmBKzaA QF7E09eg7W8QSIsVIPd YQD5tTM7qO8zdGciujf gbGVmdDsgdmVydGljYW taRWguX119EQNuwRjtV eCghSv6T0PuIoo7FXDm iXneWR3uaMXlGOwuWd8 iuSovsClaUB4oLSDrzr mlc120KjQem9ylHWBbg IWlIJgtPQL8V48mv3W8 TAYdSNZnFNK9kQB9zK8 hbGlnbjogbGVmdDsgdm ShtBrhFJmxLDglO041H HRvcDsnPlBhdGllbnQg OXelKLp5Y4NuHblhhEN +TI62JLEjIZ60zYCpgR Gxu9mdtVv1QuLcMECmF VG9xUvgNEaze3YxQXMb X11wqDEgi3Z3XYSchQx ryPMgWsEwkGK9gE8wXT qybaaln1rechjfTwppw 3kall49oR85S42tHJot ZHRoPSIzMCUiIHZhbGl zoe2uyV3hOy2+PGNvbC E6mNQ0uL8kBSGhVfL7Q ZjzI389RlEgrGAeRzci r9whn6ztzGu5TyI1ZOD yffLcwEzvSEX8b2MeTd 78S56iAKwwHDRmEEDfP WAnRDKmtWilbc5dvA6t Ii8+PUIzdXW4sEZ2yX7 nBnIyNrY4QXsfJ996Wz RdlVOuGrosY27aJ8Byz XA+ZMEeMtg3MFHkfZdx VB8mgZYtVDgdXy3qKPN 0GzXlUyEuEAptJ7RxON ByostafoggoCQ1JAIbJ LSokF63Dq0ggWblFTCk mQTRvQ5juccav0adzur tQkRuMBQrXEz1JIg7LI XalOmwTbZuLXE2IgC1D KC0xMJrpL5mgUfjoiqx iA9nK6YqQMGrmvmtFg6 3wC2oWfZfToT3NThzPv c+XjXEOQWgEVTXWm8NH FNVRTwvdGQ+PHRkIHN0 dTiiPVgvTEIwfW0gONH vQ6d7EeGbGnY3OGwyK6 IuXKYvgcoqPe70gY7nK lArOkV9IGegB4YzbzS7 TCSvuSRiPAlpFIK7E45 ji9H6JAKzEBTaJRR1fB E8gD2ozZjxxtrszCMyz DsgdmVydGljYWwtYWxp O736WQRffXvrHoRvCkV mDnY9SmC6G3MzNgk3OD WekIorRJ3ztWNbSWqmE y0iiIkbiPxdQU0wXUEk atgdTAYekE3bGGFngQU mcYlaJG4hBRXdxqwlc7 72DqDsWRU5KDScyHUlA 6ZcpD3dYqMlUAUpMERm L4WzhUDzQUmbE346QDy vFbS9VIMrilNuT3WpUV MtyKfoAdS6v2W1Qj96T CBZZWFyczwvdGQ+PHRk EJU7wQnmSHiaBZIbbW0 oEANqH0l3SdEtWaO2DJ ksQ4TgBLPzqfdkVv12o C6fHbGcGeU7VQonR5Zy pbY6NOEtuYAsGXjfFSC 2U12ke1G2KMQhSPBvGQ D2pEV4hW8lqGqkcstbp GVmdDsgdmVydGljYWwt BHaiK515KSYymVptQhP FTUFMRTwvdGQ+PHRkIH E7xHxkPCpvKYGswK7oB CNtW7h1ViMqDkD1SHnq Y4DaZPBglkysOn61zK4 hYgDlKoJ4QKndF0Ambm Y1ZLWgkVKzQAvbFTJ7R 07wb0D6ZEVcIYKiTLB1 jMJ0eV1kkCuhoojbfLD mdDsgdmVydGljYWwtYW opO826YZDeyFbwXlNsL UVhZK4mxIudeDS+PC90 sp86X3DjFuwiZgo2NAK zVGE6oQH4pI0lKZLnUX nyq2L0jAN5A0TnllJnv l0kg8luAVYgBCitM33d mLTpo9A0PPWmkBN5FIG yfCvaAaBkjS13Tye+PG RpkYkug3FbJzofj9ymb 5bxdMh9WtRbTMPkdkRm zRyoLJI7p7LaCa89I67 sIHdpZHRoPSIzMCUiIH BkgJupox9znL5gYh9+P UIuzGT9fGJ9vP0uFfXd KkQ5SAcnP177FsTlgDX eFmjng1yzy4vceRq5Nk FsBAIsovXwnDnrYEX2o 9WuMv48D3VgiKfkm7Ap Idf5di86iICsd2R6uHO 0A5OtNGQuzphphUNylB yeTA6lBICqlzltIDIed B1bAMXvA8u5HcSlPuX6 SEfjJ2UlioH9ATRpcTO iCLUkiNYXoL5vkhxmn2 labppqPsGcVEVnUUm5S Yq9MLTokWdqHuNuDDE8 SwD9HBR1oHSmmE1wdBv dshcmiS1uEfo+UGh5c2 ujkXOpAV4vlLS4QT48D J12cDTcz6D1dEE7C5En CXHjvbnmxlbseUD2OUQ pUYYudN59Uj0nzFntXz 7vPQTdSFE8WKRyvQRpO 8VajF8bLpIbUYNpQXKh L3RxxYVrZYruS073OCe hSuR4RCRwdjXkF2HpAX DxwHjiFcL4r9L5Hc0VR E63KJ57QC16nLZun2I7 pLV7H3AmVTSwawppbdy ahLT0JALsNFQiwK18Tn 7wyPoyZi9sQPShLTL2F OKgoDWwW8HvmD0mAqBe HRPpPPJkO9HyrULuYOr aU597UWvgEaY9DZDory ZtX0FcDWWieBccBuJ2n 4U4Cf7KQu49JT49RF78 fHXoj7H2cXB6P9WuQVD dsjsuwuxsaNX9LJHpIJ DroK05Jb3jwNerRg8uL DSaGON2ZWVliBJnL7Ko cD2vPlHxBOEuCUXmX4F kuPQdJPisF885MNphVr R6LEFfpdNbG9BqGTSeg MfaNrL3j6C1Lr4JRFbx fcy0M0ScHvseeMW+PC9 7PMGaAM43wWUhgQWfo8 kriHy9NxLsGJKqAYZ6d EumKNobx8LpLWHcF93l bGF (more content not included)... [facility] Office Visit (PLASMN) ---- TOOTIE NICOLE ([id number]) 1975 F Date Time Provider Department 02/03/24 4:15 PM REMIGIO TRUJILLO During your visit today, we recorded the following information about you: Shawanda Jordan APRN.PEG DRIVER 02/03/2024 4:47 PM Signed Date: 02/02/2024 PROCEDURE: [...] in treviño for next visit The patient assessment/exam/sherwin n performed by Remigio Trujillo M.D. and the above reflects their service. Scribed by Shawanda Jordan APRN.PEG DRIVER Remigio Trujillo MD 02/03/2024 4:47 PM Signed [facility] STAFF PHYSICIAN NOTE OF PERSONAL INVOLVEMENT IN CARE I have reviewed the progress note obtained and documented by the physician preschool assistant/registere d nurse/fellow, and I personally participated in the [...] Status:Closed by REMIGIO TRUJILLO on 02/03/24 Normal [facility] Lab Reportson 02-03-2024 Lab Reports [id number]#[id number] [facility] Consultation Noteon 01-30-20 Consultation Note [id number]#[id number] [facility] ED Clinical Summaryon 2023 ED Clinical Summary [facility] Emergency Department [address] [place] [id number] ED Clinical Summary PERSON INFORMATION Name: TOOTIE NICOLE Age: 48 Years Sex: FEMALE : 1975 MRN: Acct#: Visit Reason: Nausea; Headache; HEADACHE Arrival: 01/29/2024 19:18:03 Discharge: 01/29/2024 21:08:00 LOS: 000 01:50 Check In: 01/29/2024 19:18:03 Checkout:01/29/2024 21:08:00 Address: [place] [address] PCP: Romeo Chaidez DO PROVIDER INFORMATION Provider [...] Home PATIENT EDUCATION INFORMATION Instructions: Hypertension, Adult, Pomy-bc-Pets; Migraine Headache, Jnhn-xn-Ycmn Follow-Up: With: Address: When: [place] [address] [place] [address] Within 3 to 5 days DIAGNOSIS: 1:Migraine; 2:Elevated blood pressure reading Patient Understands: Yes - 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 verbalizes understanding of instructions given Comment: [facility] ED Note-Nursingon 01-29-2024 ED Note-Nursing Patient's male visitor came to desk and advised the patient reports the medications given are not working. Dr. Varner notified. [facility] ED Patient Summaryon 024 ED Patient Summary [facility] - Emergency Department [address] [place], [place] [id number] PATIENT DISCHARGE INSTRUCTIONS Patient Information Name: TOOTIE NICOLE Age: 48 Years Date of : 1975 Reason For Visit: Nausea; Headache; HEADACHE Arrival Time: 01/29/2024 19:18:03 Primary Care Physician: Romeo Chaidez DO Attending Physician: Bin Bello MD Comment: Visit Diagnosis: Diagnoses This Visit Elevated blood pressure reading (R03.0) Headache (44809873) Migraine (G43.909) Nausea ([id number]) The Pharmacy at [facility] is open Friday through Friday from 9A [...] alcohol and/or drug addiction problems; contact the [facility] 26/05 Crisis Hotline -Text 1JAOL qs [phone]. If you received any narcotics, sedation, or [...] documents With: Address: When: [place] [address] [place] [address] Within 3 to 5 days Medication Information: The exam and treatment you received today in the [facility] Emergency Department were for an urgent problem and are not intended as complete care. It is important for you to follow up with a doctor, nurse practitioner, or physician?s preschool assistant for ongoing care. If your symptoms [...] of medications post discharge. Please inform your acid retort operator/provider of your visit and for further instruction on these medications. Any specific questions regarding your chronic medications and dosages should be discussed with your primary care physician(s) and/or pharmacist. Additional medications on your home medication list not specifically addressed. Please contact the ordering physician if you have questions about these medications. amphetamine-dextroa mphetamine (Adderall) 20 Milligram every day. estradiol (estradiol [...] migrainosus Migraine M (more content not included)... [facility] Coding Summaryon 12-30-2023 Coding Summary HTMLBase 64 AqmborwqLUc1fRc+PGh lYWQ+TO6BAPIqU42gnZ QgrJ3mR9ZHNMbMWcunO QEUKLfZFbNpfpAaHS1l aXNjZXJu IC8+IQ7tKNGwKvcqbPN kl8V7oMP9N05wqv2oEI ojsGL1ABFySqNqofbkw 4hpqZr5PRpgYsvwHkXv IBUmvV60IHW4xO00Da9 7jDAfsCAca9jycMf4Ml EkUQJxAJS2sKwaKNvvb 3WzFNXgK97qpKBcw7P7 IGNvbGxhcHNlOyBlbXB 2lL8sCIpfdvfdd0ctzk psGai7rs96zSSnc4S0q PI3D6QgedI5XHZpvVOk PfmzzJAFwF5hgtskt5z encgiCvLzRPEgRVv9QZ d1AGBquWxnBcHoIA44Q ZC3ZNYtwuWpT2BpTYYo rNbfYkL9x6R3Ba1IX0Z BQeitK4IAXMSSODxdnO Q+XJ12rt61N7GzShxjQ os2LYDdQRB2rUC2wN3i GDKwIHmxl5L0oXW2T8Y vsiUlll6sb6coHVLsTE qeT57vtQTix1J1LPEcs FM9OCRwaNisQjQwhJ70 Oyc+PZYzrWutf9BePux ih4syd4soyUk4ScwlNJ RdpjXicOgaYCS9j4WlQ s5xHPLquHD4rAO1dJ0u WhSbOdE7XXdlZ388LjR fzUCoZwbjP39xL6QqnT A+STLiIza4ZRFoqEnpO I5yE2EyNKGaxidbePPq gSapGU1aWLCabcotEMQ xpD2tCDEkW3u3QjYrRg X1OJruN8XwZQCsptykG j37uL5oIyJbVbH6CMdn I4JhfhK7EKDkyOQjDPt zYME1M38xt3G2TRUpRL UgEDX4dPB3bK0srDepq jogbGVmdDsgdmVydGlj BHgtHNqlY301XXWdbQf nPkNvZGluZyBEYXRlOi AgMDIvMjcvMjAyNDwvd GQ+KWTzEQG1pLceJPYa cKWwZFpvSe1ylVnkhRe sWT6qDBZfdoewVQSphA 0uSOYwvBAsdWmdXY2iY HQzrauzq532MtHxQST7 WVCelMPiA3NeyF0aKwD zOYMxOKPyB4KnnNLlLT maW709CHxkVeS9OJOlm lQnF3QpBVGxrGiuKlV0 c5T3Xa4Fh2IpeegcR3Q mpDFjBnAlRiyzBYd0A7 RkPjwvdHI+ZW80AOLoH S70UEj7AWL9kHsbGXmf WHFuD6FkjC9wOiIiGVL kZGRkOyc+PHRhYmxlIH dpZHRoPScxMDAlJyBzd CzdDC9aKo2nDCMcTVBs vVxdmURuEgNqq0emSFP tWHdzIL7mxErbS7AavA D8IIBxr5b7Ys02J60zR 3JvdXA+HQVzoPC9gSF6 qU4sGaWzKrW3QYasR07 1SiJagUOaAttvd5qbe9 wpmOv9UlF1SOSutfEqt WjjYXX5q1AvRa92O62k IHdpZHRoPSIxNSUiIHZ esDdape4spI2rKn4+PG MvwWG8lAQ2jH1dLxIfI cR1OSnnG935TeTmjKDz Bbdgd4bbf8apePe5KeN cSXYsocKnqWtmCHX0y3 LrDv70X1MueDsgg4ZkT km1rw86tTYdm9G5bXG3 K2RdOYJbwzrspVRocLz wSV9mGHPypcfgXYUkwG 2yKYXrW2l0FiHiCuE7Z BfvJ1UikzS0CJFtoLBk NBYooBGOuR9ucbquk8i bwbnlLlCjWRHnYRq4BR o2CLYfqDixOaXfJZP8O nW7VHP7oWPyrV8elHvl gbtmmU1wCdq+CLC1wOY qpCABEP2yZlfgeBI+PH FdVZW5hWuqYZjdLGMuk R4mKFSzD6b5AfNiPoP1 GYnmD1AilbN0PFYjhIA jFYBonIZTsF0hlsvrv6 gkmqpkReVdRETyFHp4O Ro8RQPgdBdqIsCjABP6 DkH2QNT2gAJubA6mlHa nysskdC9gDae+QmlydG oiBZY3FMj3Q5ZkKcf2Y PGlbNmsLY7bnZQjVSmg Qg3rjQtulQlyDZ8gETB wgzegr310IaAef9lgDC DalAGcRZlpQQZ7G52ys 4O8JMXjFWTjCSJ2pGN2 nM6fwXfawcpsxPTukTn gdmVydGljYWwtYWxpZ2 22SDIkkQezBcYuWCq7Y 7LpLhr9VBGruXjbFC0s xVAvOBcePk8ooSyjsFk yRK6eQTAoszxnn806Vh Gzy9bkUTRkuUApFDajB AO1P13cu6A5ENDmCKTl HQP4lAW0oZ8qiUzmmje gbGVmdDsgdmVydGljYW qfBSthO741XVPazIijV uLfyXr8E1DxNhw2KAIu rPagDI8mhKPoXXvkHs9 rnPqrbGbxFX4gNJStwe aia987AeZwv1xdVAXxe VDuFQqsIRB0Y54bb9D6 EWSjYWTwZBR0uEU9lA8 hbGlnbjogbGVmdDsgdm BtbUulZDukVWkoR263G HRvcDsnPlBhdGllbnQg ARbqHOi1N7YyTupfrOT +HB78ENLpMO58bTEmqP Vqv9dqgLp2NhDeGXDtO TM3cUgkKRuhz5YzMNIg O30jyDSkc8P9TFFtjPg ltYHmZwZbqUQ0wC8hXA jdllbaw3watsrxCqppr 3ikxo21yQ76L72kKXjq ZHRoPSIzMCUiIHZhbGl dpc0jvX1vFx8+PGNvbC G1yCV2eV7lTNZlSxJ3B YqyF115AoNaeBOjDutw j1wax6qvlLm4OxR1PRL fvdMicBaoUXG1c5LtGw 05G78zGRnxHZZsSYTwQ FNtAIZahItllf7ixA3d Ii8+QVOpeBG4xWC6qK4 tHpLoNuS6FVfeM540Iq GqzJIpIldzY89gX7Vsq XA+IELyHhs3ZUSwvWxh JK7usITzWCqwCr9oBVF 6UxFaFdIiHItyX3ZiCR WjuzmfmfmhpVF9VKOkC OIxpS72Ez7ivXcyJBUg hUUWkD8xixwuu2tmojo lNuDbGDVtZYg8TBn2TI OvjPeeTmYnXBL7QsU6P VQ7oCJlhJ0keSksaxlu bL2vF8UiHQVdyqkrBl6 5dS7rCnZnXpN7HBvqFy c+WdIZCKDpOEZTXd7LO FNVRTwvdGQ+PHRkIHN0 hBpcOThqDFIboO0aDXK eP8g8YqZiMvQ4BFvcT0 AxDZSpwamlNw44nU7iR dNiQbJ1BNwaB8MojvW3 LBZmpXEhJCpiKYJ5V94 ad9P6XHYxFTEqJUP4dJ U1jJ5cvJbszxhrpJOla DsgdmVydGljYWwtYWxp R319GQSilVwfMzVfFnF pZqZ6SbS8Y0ZmBgs9XG DdzAqbRQ5lbNSmBGmvW u5wiEfmpKjiTN8nPQWx ewfvWJMidC5rLSXjxPB yjHfpYP8cJGWaqmqkl2 28PsWqVBP3GBYmfOOcC 2RfrT0kAaVfJNYpIZCm F0JveOPuAJjhH822KWt aLsR3FRRiayRrY9ScSQ OdzLgoZtP6t6A4Ar31F CBZZWFyczwvdGQ+PHRk YEG0jWsqYHsnBAAugE8 vRSPnT5v1YtYjSuE3WN hfN2HgSCNqzrjbUh46g Y3bUtNvPgY3IHdqV2Pe kaW3MTCumTSeXHmmVEW 0I38ez4G1MEOpACOhQR Q2cIM4uW7ezTizwbjrj GVmdDsgdmVydGljYWwt CGkzI898MGJctWliJiX FTUFMRTwvdGQ+PHRkIH I1pHjxFAhjQVLjbC9bD SWdB3x7JcCuCuN9JUdv V7XaAENwcvctOe38yI8 tSzCaQrS1QZtbS1Iefw F7QBEidBPoEKnnVOQ6S 73xk6A7FKJtNUHvUUB2 oVP1kY6ibNpvfrnqsMR mdDsgdmVydGljYWwtYW vtL092TJBckDqjPyUxA VHwCD6ttQroiLM+PC90 ty64G7CyZqeoVnf6YYU tNSD7yQU9oV9oJRBwGP wpp8A3lSQ2G0IwsgEkq n7ai0frAJZdEBahS36s fHKrd2S1VCBekNB9XDL tuEaySyImcH96Krr+PG JrbNyrr4UtKvdpu7klu 9jmlGh2LdLqQRKumnMo oLzpMFY9s6DaIc54E84 sIHdpZHRoPSIzMCUiIH WxlExxgq7uaB3bZm2+P KRstQH0qQW4nK4yWeBc QjZ5HRjmL681AmEiaZT bBotwz0str0ocgUk3Hf HnASOehjCyzFwoRUJ6d 3PhOz50J2KheLvrm7Tm Rxm4vd55sFPys4D3xGQ 6G5JbHBXnfpogyJAhbX xaBX8dCWZycmecUCRfu C9eJQVpE0o0XiLsDnD8 TByaB9WmgtU2EPWdfZF mTQCbtYGCiS9xlzvlw3 dpjfpiNxNkQPIfPPv5P Cr6GVFkdPegOkIiLLH0 RwT3XDR5iDRohE1vtDw qnsguvX9wXqe+UGh5c2 glaJCjYQ4ahJD0RW02G O72gKLfv3X9lZE4U6Zu KVCikgoiqiwmbBD9JEY oVBGmzB73Zx9zlNqgJf 7tWTDqHPF1FTVndCNtK 5FarN2hPmHhCOKkRWRy H2CljKEbEVuzU181FFu cRpZ3AQThhwZpP0YdGJ EqvYypRaS1t1Z3Qm4YG R10ZK77QP83jSGpn0K4 fRZ1W9HiUPZpbcfncxv dwKN1RVGyFHOttN20Bg 4yoWyoWq2gPEEhJGZ8F IBraSKaK0DabB3dYaEv NFTyULOwT4UfmUVdSYq oL125IRwoBfM3PEAudb PfM4FvGFHgwVgtUdT4f 6E6Sh7BCh37MK62BY94 cFUbb0X4sHB9F7DhEEF upwuhqbllmJG6NLBeGZ HtjU33Sj5ahQoxVy7qJ WTsBXC4LTWkwBNdK1Hb bZ0uImHjENFvLQOxK4C gcYCsRGqbC524RLttWx U0YMZovgYlB0RiQAJyl PztCqU5h3A2Th9HUVsm rct5W4CzZovsiEI+PC9 9CXEcYH53tKThbQNqr7 wouIi5XpDuPTWrSQM3e BgdSKqju0OsLREnX62d bGF (more content not included)... Normal [facility] ED Clinical Summaryon 2023 ED Clinical Summary [facility] - Emergency Department [address] [place] [id number] ED Clinical Summary PERSON INFORMATION Name: TOOTIE NICOLE Age: 48 Years Sex: FEMALE : 1975 MRN: Acct#: Visit Reason: Headache; Headache - Recurrent; MIGRAINE Arrival: 2023 01:57:25 Discharge: 2023 04:06:00 LOS: 000 02:09 Check In: 2023 01:57:25 Checkout:2023 04:06:00 Address: [address] [place] [address] PCP: Romeo Chaidez DO PROVIDER INFORMATION Provider Role Assigned Unassigned Tru Matt DO ED Provider 2023 01:58:43 Manjula Jo PLATE GRAINER APPRENTICE Nurse 2023 02:02:36 VITALS INFORMATION Vital Sign [...] Home PATIENT EDUCATION INFORMATION Instructions: Migraine Headache, Xtux-pl-Tblv Follow-Up: With: Address: When: Romeo Dm [address] [place] [address] Business (1) Within 3 to 5 days With: Address: When: Lisa Martínez [address] [place] [address] Business (1) In 1 day 12/26/2023 Comments: home call Dr Martínez's office in the am, for a recheck apt Prescription for ketorolac 10 mg You are welcomed to return as needed. Sanjay MATT< ER PHYSICIAN< Verna Cornelius DIAGNOSIS: Recurrent headache Patient Understands: Yes - 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 verbalizes understanding of instructions given Comment: [facility] ED Note - Physicianon 2023 ED Note - Physician Patient: TOOTIE NICOLE Age: 48 years Sex: FEMALE : 1975 Associated Diagnoses: Recurrent headache Author: Tru Matt DO Basic Information Time seen: Date & time 2023 01:59:00, Ambulatory post the [facility]. . History source: Patient, family. Arrival [...] Family/ Social History Medical history: Resolved Migraines ([id number]) : Resolved.. Surgical history: Rhinoplasty ([id number]) on 07/10/2016 at 40 Years. DNS (deviated nasal septum) ([id number]) on 07/10/2016 at 40 Years. Nasal polypectomy ([id number]). Appendectomy ([id number]). Hysterectomy ([id number]). Colon ([id number]). Comments: 11/18/2023 21:34 Etc/GMT+5 - Shuff, Patricia [...] BREWSTER, Ce (more content not included)... Normal [facility] ED Patient Summaryon 024 ED Patient Summary [facility] - Emergency Department [address] [place] [address] PATIENT DISCHARGE INSTRUCTIONS Patient Information Name: TOOTIE NICOLE Age: 48 Years Date of : 1975 Reason For Visit: Headache; Headache - Recurrent; MIGRAINE Arrival Time: 2023 01:57:25 Primary Care Physician: Romeo Chaidez DO Attending Physician: Tru Matt DO Comment: Visit Diagnosis: Diagnoses This Visit Headache ([id number]) Headache - Recurrent ([id number]) Recurrent headache (R51.9) The Pharmacy at [facility] is open Friday through Friday from 9A [...] alcohol and/or drug addiction problems; contact the [facility] 26/05 Crisis Hotline -Text 2TKJL lj [phone]. If you received any narcotics, sedation, or [...] legal documents With: Address: When: Romeo Chaidez [address] [place] [address] Business (1) Within 3 to 5 days With: Address: When: Lisa Martínez [address] [place] [address] Business (1) In 1 day 12/26/2023 Comments: home call Dr Martínez's office in the am, for a recheck apt Prescription for ketorolac 10 mg You are welcomed to return as needed. Sanjay MATT< ER PHYSICIAN< Verna Cornelius Medication Information: The exam and treatment you received today in the [facility] Emergency Department were for an urgent problem and are not intended as complete care. It is important for you to follow up with a doctor, nurse practitioner, or physician?s preschool assistant for ongoing care. If your symptoms [...] of medications post discharge. Please inform your acid retort operator/provider of your visit and for further instruction on these medications. Any specific questions regarding your chronic medications and dosages should be discussed with your primary care physician(s) and/or pharmacist. Medications That Were Updated - Follow Below Instructions [id number], [address], [place] [id number], [phone] Updated: ketorolac (ketorolac 10 mg oral tablet) 1 tab(s) Oral (given by mouth) 3 times a day (scheduled) as needed for pain. Refills: 0. Other Medications Updated: ketorolac (Toradol) 30 Milligram every 6 hours (scheduled) as needed as needed for pain. Medications to Continue That Have Not Changed Other Medications amphetamine-dextroa mphetamine (Adderall) 20 Milligram every day. estradiol (estradiol [...] traMADol Secure, (more content not included)... Normal [facility] Ambulatory Visit Summaryon 0 12-23-2023 Ambulatory Visit [...] Chaidez DO This Is Your Medications List amphetamine-dextroa mphetamine (Adderall XR 10 mg Cap-ER) amphetamine-dextroa mphetamine (Adderall XR 20 mg Cap-ER) Contact prescribing [...] PM EDT With: Romeo Chaidez DO Where: [facility] [place] [facility] Medicine Office/Clini c Noteon 12-23-2023 Family Medicine Office/Clinic Note Chief Complaint F/U HPI Staff Patient here today to F/U ADHD,anemia, MMD, Migraine SHIRIN 09/17/23 NEEDS REFILL Patient has purchased Driven to distraction but has not read yet. Neurology Assessment 10/30/23 ADHD followup: Sleeping well: Yes, 6-8 hours Blood pressure:Reviewed, _ Concerns/complaints : None Controlled substance: Adderall Urine Drug Screen [...] screening: overdue; gets this done at the [facility] Pap smear: Electrical Research Engineer - Dr. Sarah DAVIS Labs: September 2023 Smokers: Low dose lung CT: List of Providers: Neurology - Dr. Lisa Martínez Electrical Research Engineer - Dr. Sarah DAVIS Derm - Dr. [...] documenting in our EMR* From last note: 07/23/2023-neurology Melida Martínez Chronic migraines Noted to be due [...] Initial De (more content not included)... Normal [facility] Comment on above: Result Comment: Elec [...] attention. This may affect cognitive abilities. ? Hyperactive-impulsi ve. With this type, adults have a lot [...] Losing and forgetting things. Symptoms of the hyperactive-impulsi ve type include: ? Restlessness. ? Talking out [...] primary care provider or a mental health assurance services manager health care. Your health care provider may use a [...] Behavioral management. You may work with a men's golf coach who is specially trained to help people with ADHD manage and organize activities and function more effectively. Follow these instructions at home: Medicines ? Take vipb-ejg-gmugkok and prescription medicines only as told by [...] Follow th (more content not included)... Normal [facility] Coding Summaryon 12-03-2023 Coding Summary HTMLBase 64 MozcdxwpOIn0lHu+PGh lYWQ+DY7FKRWcQ29xbM TjeY2qG0OBDYvNZtxjW DJDXHhUQnYxkoEfME4j aXNjZXJu IC8+PF0hAKPdAayryKT iw4G9lBQ2Q91gfo8oHD hkgKD6IHGcQvFjryjqq 6qgvTr1SIszIifqBdYy GUUvyN88HBV9eL34Bq8 6tNQtlFOqm6yclNy5Xy WxYSXyDFB7fSauDFjrt 4ApBNJfU53deBRtc4L0 IGNvbGxhcHNlOyBlbXB 1bN5aQHxsojebd0ptbx ipGfx2xc38eYFkc1G8n FN7U8IzquA7TNKugLGj TtaoeYDEoB0faqwle8d avrbsAtOzCNKkVYc1HE y2UJQdnXkeFbJkYG09K DN7XVPculIvC9VjPDVa hKbdCpS7k1M3Ui1UV4P TAmtuI9GSZDKTGWsyzV Q+HU55xj58K0HaMzorR uk7KIFmNMV3hKF7oK6z GDDdKSvcr4M5iUX4W5T ftrKcdj3ev7xwLQIrYR zkY25wgDDwy7F6TYJvn SY3SXQcsHjwZvPplW40 Oyc+QSAjkUfjq5JgYll ok5zbu8nyfCy8CltqQS DqjpJlyKbuZUR1b9DyB h3eYLIrzHF5jCV4xE5g JaDyNwC1UIqjL512NdA bqPFlUbhbY22dG8DxpU A+OBCmVuq5CZOuqDajE V1xX3OqYQOfjdpguFZz rBhbHI6aAZOsqwmyGNU kiF3xVWLlR6m9HnKsNy Q2TFdiC0BpAYFzgmbzP l76oK7wZaSiLfC6ZUwf H6BkfgK4JTZttRQiXWp uKVB2Z61uv1Y9FGLlOR ByNAR7lWK5wN0ezYlsm jogbGVmdDsgdmVydGlj XEtwJRkrR067VPImmOd nPkNvZGluZyBEYXRlOi AgMDEvMzEvMjAyNDwvd GQ+EKAhTYF5dWreCTNi lIIpDJbjXg8yiDlrfEi pUJ4aBBRyftacWDNhaE 1jXQIieSKjaZryVM1pH LIxlbxwu709KoTtTDW8 PUOckMEuL6LzbJ8qYgY jYLLgTIDbK3CtrGIqRD leP118OXuaTpI1MUZwo pQcG8HtYETepJsqTwK9 o1D7Uk6Tk8WvujryC1R vfRUcMwAfOvcjCCm9P1 RkPjwvdHI+KF00WGXiN M16EXv8YKI5vPzpYSzu GBIhZ2RzrX8wYyKvNJH kZGRkOyc+PHRhYmxlIH dpZHRoPScxMDAlJyBzd MkfMM4fYp8tULFmTYNz nNenkQHuOeYbn1rvEDD yDLllFD7jtAruF8KiwF O1TKRuc0d9Jt24T55dZ 3JvdXA+FVXrsBN2bMS8 jP2lQfOlNoA6IAzzQ95 6VrLvfWCyVyfct8fiz8 fefXf0UzX4IROzqxJzn KzmLUF9b0QyRo65Q45m IHdpZHRoPSIxNSUiIHZ pkPhgle6ntM1eMn3+PG XwvWV1zVA2oZ8rBpJcS nN1YEjgJ826BkUdnFCv Xcxnb1lhb2ibrEb2MvE tJMVqznDwnYtcBLO1h5 BvIo70I0JptTbrm5PnZ bq2kf86pZTgw4Y4cSP8 C7QzLABkgtanuMIinNm gIC0iHFDfwgjwEVLnvE 2fESGoF8g9VwTzWlU7H BajR4TlkhW3OTSteMIs RWDsaGFSfC4twzhwp4z lafaaRqZtMGDqPQr8SX e6VHAreAkpVcElIXG9N eQ8VYG7bUGvbR8akDbt fsvgcS5gPvw+MWW7hRC joEUCXQ8fFiinrBP+PH CwWIJ3wEqkJZeeYBZlh T2fCDFsL2t9RtUxZgZ0 YGrkK0YspzH0DGXttVT gOHGfoGQQiS1gzkgin0 ivvhxiWdHoZAWzUBm5R Hd9QAYddAdrVpCvVKP5 RaN0ELH4bHDleQ5xrKf bozuquY8lFji+QmlydG emHDI2DYa7O9MyQwf0P YVtqLlpLY8unHBhGObu Tr8qdGiscXiaSZ2uUEQ dmntln574IdChp1icRB BdhWUuUWrhRQH3T20zu 5H2IXIfXENqKCK5vRQ3 tD4frOpdccpgiIPxtUs gdmVydGljYWwtYWxpZ2 57JIVotPssOyYsYSn6P 7PpFnl3CYJssHtdDR9w jECmUSfpRk1yyWhckFc eTV0sWGLtnhgze425Yo Pwp7otZKPctLEgPGvnE OS0T14eb9B8RWEpSCTj BUI4nGB3vR0huZsnzbd gbGVmdDsgdmVydGljYW opIYbxW716LQUwwGhpD gJuvTp9R2HjLzg7EKNe nUsdEP4ppILjYIazUg9 vhGzhhMvqPU6yFMTyuw ngo171HzNen2kwUDZfw MIkNRqwRPS9I27hn3W3 TKAeTWMqBGA8tSC5iM2 hbGlnbjogbGVmdDsgdm TblUrfRLneUUjtZ308F HRvcDsnPlBhdGllbnQg DKxyBHc2Q4DwDopvtAA +SI54BFAmCU33wPPprQ Vdg0xzoPh4NwPkFVAkS LB9qLetBRemt0GqADUs H30fgVCzl7D2AUZrwRx waHZlEsVbuUS7tX5iRI nokebxq2mvdkmxNmivx 5vvtm05hD79P44jULxv ZHRoPSIzMCUiIHZhbGl pkv1inC0dEz4+PGNvbC B7bEI4cZ0iQDKbBuJ2B BxdD262QqOxyYLlSqpa e0nwf6hdkAk6FfE3KFI iphTfeMxjQZD9h5KjMs 57Q00kDJmaDUTgFKEiJ CPiZRUlkMghfx0ztL1x Ii8+IYCxkTN0bCH4iA9 yZtJhKzU7MSppS282Hv AboBOeBiyzI59uD1Jyn XA+OMWkEkq5ERZpqWaa EX3fgQEwYRnaDr5lPXN 0DxQpSoVgANkmJ3CrSD CtrnxqpjxhyUD5SBShS XPqdH89Ec8xzXdhWDGs zSCSiQ9smrrfg6paknw mXyXcWKNvUSt0WCe4LQ UtiKebAgCcDEQ7AvU5O RP4lXZixS9clUhnqorl lI7cN5MbJKVatvtkYo3 8iM1mJoBoUlS3WDfqZd c+WnXMTYZsYSMRJg9PR FNVRTwvdGQ+PHRkIHN0 eKnzTKtaKPGqeO5ySRJ iV8v6YhKbBiO3CNqyX3 GyWQZqdsayYt80vM3bM vKdQfZ1DCpjI4NktzR0 BZRuuTYlSBsaXIZ8T04 hp1G4JKEpRMHpNKS5eW D5zG2jhRrcxjwfeSYvc DsgdmVydGljYWwtYWxp K656QASjnPryPqWkWjF mTiO1JlJ1W8KwDzs8AV XgmTtbUX8eaCAnENtzW x7evVtatZyrJA3dUWGa uyzpDBDvlF0qIOIcdQD znVdjWU4rUATfdrbfc5 09YkCsJCP2AXRpqILbQ 8YjmQ5gDyFlQFQaMGXc B4WzsAEnDRitZ974MRx uQdD7FZIamhZmO6JaZR BukHzbFjS9e6D1Kj85Z SBZZWFyczwvdGQ+PHRk ZQI1lXgvGZtsQFXfnY1 qHTKoL6m8XzLrDlA7WD yfF4CrLXCqgpybUc07v U6wHhUnEqS9VMcaB1No xgM9AOCbqWHsPFznFXW 1I71ui4M2GTRaKJBaSV C4wFA1yF6joPckotqnd GVmdDsgdmVydGljYWwt LExoU710VXHwsPomWzE FTUFMRTwvdGQ+PHRkIH Y6eLhlRZpgVOSmgZ1qP ATiB7t5QfKmXgR9UXgl E0KaTVKpugdlXp78aP9 rHqOoPdH9AZofD7Ckmx Q0CYSygVIbIAzaITV4R 36pp7F4CBHjOMEbSAG6 pCW5dR7gsWjruoeevYU mdDsgdmVydGljYWwtYW wfJ565SOLamYczJoIyH CAbUH1nwUhpzES+PC90 ln95D4NnDktpZsl9ZOY nRQK7vJL2nU9lQOOeFA owi8X9mNR7H7JictYxw y7tb6iaDREiQGxzG62h aCLmm7Q4GHMdzWB1ECA nmEpzQmQmuX22Sff+PG EjsMcgd2OoXfseq6bcg 3fqsIp8McBrREIxzhJj zQiqJJK6l1YeDl90E96 sIHdpZHRoPSIzMCUiIH VejPwifw3nnP9xZq8+P BWzmQE0yCP2xP4rAvEf VsP0AZjdG961ZkEcdXD zXoylw9rwi8ifvTa9Fx TnBMYzpgNzpBdrWGW4l 7UcXa91Q2XldGbfc1Tz Vgw1ip90eAYav9V8tVO 9O1BrUDMsnheysLQatB amUG0fIOZhnmahCSNdv N1uONYdL2n0GuPtWcZ6 DNfuQ0EhaaK1WYEuoMP yBIDqzWWGiY0rfzhtb2 xkudlsRyCcOGIdKSk9A Cc2TFVqsStwGjJtDOP4 LoH2OAG1jMHzlL9boFb hesxjcP5xEdu+UGh5c2 uenMZoVG5jgIA5CS20O S88zOYjk0Q2qIY5I5Vx WVRsuzltccwxbJD6WKA qYKSsrX06Sh9umBdcOv 6dVILeUGN8DUXilPLxM 8FrdM1gAfKuNRSaNIAw E8AgzUAwZLlqM895MTk qAdW5IOOodpDjY3XgKV BviAlgFbS2c6B5Bv6FD F50RU48XW18nIYsb1Z5 pFO7K4VbLJJexvqgjai mqPT6VATlGDAvbT44Cq 0yhLufNa8rEJZhEZA0B COwbJTpS7CcfL4mPhEv FOIlAYKjY7OyuMUdTZf pU279PIjaHfS0AHJuej UeX7RlXECqvXhiYvG1t 0E0Jo0OFw53OH44TW54 oYPvx2A6qZT7X4MuZYI bsdznfimorYP4QEEkHA NdgT54Eh3bhYplIk3yH BYvOSO5IWGifDSeI2Cj fA7cLaVoIVMpJHXhI9R zoZLhVPezE417ONotEp J8ZKIeqzOuH3TaCZPeq KypDpD8g2L8Ix9VCFxf yhq3O1BgXazhrJK+PC9 4JRAiVQ50aVTziDPoa0 uopBg0YqYzHYLzUJN1y UzeHVyri2RrJIVtQ25f bGF (more content not included)... [facility] Summary HTMLBase 64 GthspjsmFLs2aSt+PGh lYWQ+AB3OFWYcZ47tmG VgwH6xX9QUTCfVCkweX BFCVVeYYtHwtbLpBV4f aXNjZXJu IC8+GX6lKIXyFjyylAW ic8E2yHT7R86vyx4bIT hwiYC8UREnKeLxrkaie 8ljyFn1VRqaReeoGkOq PJUdjC26ALN3nA36Rc0 3bLPeaNXft4hxcKx3Oa BdJVUnARS2nCuiOUqxp 0OlGGMpE37ldCYiy0X4 IGNvbGxhcHNlOyBlbXB 5cW2hYGakwjios0gzvn cmTra0jw00mYOob7O1j FQ5R2UlhlY4WCQykYKl VcabmEFGmV3xfpqoa8l kfmlwGcUlNRZrYYe3IP e6EKTjdMyjErGaNB53R XD6WWMbzlVqR4QkPSPe mPtoAaL5x1I4Ym7VJ4P XZshuC4TDNBDXYQrjmU Q+AY32ov74X9CkTppiH gq5TKGeLXA7jFP7cG5w CKXnROqnj0A9gZU8F5Z jbxWpvu5mf6aoHVZkUC jnJ60upAHll0G5VRIfs NS9RIXipDucRyLboP69 Oyc+GPRsoCeat3HdAir al6jlx3qwxLl8ZhblUB IpyvYmzHsnRJJ5j6QdN y3rATRazWZ4sAC1cT8s CwQoLjD6OIgvB178HaP niYTqMblpU04bV4NqlO A+JNYwKmb5PABziVwxL V6eI7IeMWFqijrooQQa sRgxLV6rLPNnhvkoBFR dbO2qFXTgQ5l3GtGmXr N5BBfnQ9McFFXkysduY a31pS2vWvAjHvQ8RYbn L7KyeiV1PLMzqSJsEDd wGXR5M29ax2W4QGOyBZ RwLLO4oCJ7sV8izSfnv jogbGVmdDsgdmVydGlj NTyoFKniH744HPPohAt nPkNvZGluZyBEYXRlOi AgMDEvMzEvMjAyNDwvd GQ+VNGdBDE8fGxwRTNr tJVvXQqxWq1fwLmnuIq hDI8cSUZfkjsdWBPzpK 1jQJMdtNVluCusRM2xN RZmkusiz739GeKzYEB8 MVHqwLAkM1IhbG2yXgU aOUPdZUMdX1WenNZuDU usS137APyoGjN1SESvf fTvS7OgATMgzYphEiH7 n4Y7Qg4Qx4DdtuavM2A vjLJmWpGeQdwaLYo1R7 RkPjwvdHI+GT72PRXxB E70JUj2BQT1fQdmLJeg FMIqJ1ThdM0oLfHaZRQ kZGRkOyc+PHRhYmxlIH dpZHRoPScxMDAlJyBzd RmkSH4bRf4qOOKkAKXj xEwcgLWdXmTyi4joGSJ oKJxeJR8avYlhS4AqxF C3XPEwn0d3Lb50G54vY 3JvdXA+ABCoyZN0aUA0 dX1yFfOvImT4GRiqX01 2QqRceGZcUeavl0byw1 opxKf3TvE7JBLdvdOkr WemQQS3n6MoNg74G84b IHdpZHRoPSIxNSUiIHZ gjFxgdb1raO7eYm8+PG JxdSK1mKG5hH2nCiCjH uH3TEazR836WuKboLKc Rzcbj7xvu5eveXc4CuZ qXFHlycIxuHtiZFX9i0 TsYw45Z4WlhGyfa2DhT wt5ee17cVWpy1R2nAX7 M3ZkCDVmqxjieVUqvPx dQP8cSQOijwdzOVVebU 7zVHGdA8q0JoFjBlV6I UofC5IbhcM2CCYzwXEf OINvxZALvI2xoauiw4e ziqgzDmVpUNRuKYo0QK x8UPZljIklImHnUWW7Q hC9IWZ4xPIurB1wkRre zkmeuM1tAfn+RSE0oNL laZKBBP3fOehymSV+PH HkLCP7oKriBJpaLMTul A7pPHDbQ6c8SkEeJcD9 JDpoS8KmqnD1IXGdfEU xTVOrqBNPiC4vqzuwu1 gkraprGgQcYEMvDXn7J Pu5VLXtvXwiExDvIVU7 NvO8WWM5nNTaaZ4guAf dtuffoB1dVlq+QmlydG skCDB1DGy9J5FkIbn3D JIpoBmtVS6xsNNeQWch Oc0uvKejrVzoNK8eZOA svaxcn639LgVtp0gvBF CwoFGqOKryPXK8X06ee 7E7ZLJuENXdQEJ6bIK8 oZ7xxPneffezrAWhkFo gdmVydGljYWwtYWxpZ2 13WDYddRnoFbCpWPl2N 7TiAls9AXVjgTmsHI5u fITdVYlqRz6pdWlflBk zRV3bGATmxtesd183Sg Qjh9gbEUAeiKWwJKnqR UJ1A60nl9I9CWOhSZBy VZE8dYX2oQ8onDllkbv gbGVmdDsgdmVydGljYW rtZFeiU462INIfhHykQ sHiqZs7U2VjYvb9DAJp bDwvYT0ppMXmGZxgYs2 hpVoerSjoVW4jOXMwkq inp530PwQuv2iuQRMmn DClTYdtIGU6D57yb6E6 WCFjGYNzJUL4rIC1kU8 hbGlnbjogbGVmdDsgdm IiyTqhLWiyNUagZ913W HRvcDsnPlBhdGllbnQg EYicJLg9U7BvRjcluMF +PM76YCNqRR76jUKbqD Itp9eiaWi8KwVyGCTaN OG8uSxkUIubu6YcBTQu T13mdWUpq1Z0YILhbEo mzJRaByOqiLV3tI1sAW syghjbc9djqfsmZihqa 5hyjv92qU22Y32kXJgq ZHRoPSIzMCUiIHZhbGl vir3ggZ0jGy7+PGNvbC W4fUL5kF4bCUIdZrN6G OfvN034SkUxfYDxHegb h4sjy4scrJw2UzN4BGT ffcUjzDsdUVN7s0FwCt 98W89kXUowDQYeWHBzF OImCCQxdZsazn9awM1v Ii8+WXMqeXZ4iSP9pX2 fFfKnMxC7PNusK765Cj AjkWXqGnqcG10nB5Glr XA+PRPvBmp1IUCpqJvv YK4cyTWoUJmaXq0fUTX 0UiYiAsIxXKwsU6SgLT VvnhumghbmjEP3POBlE XPkuV60Lu3zbSuaPUNg zGPRwZ0uwevzo5cvltk gHiAzWFZoTCu8IXe9SP ToaOmaKeVhWVY6EhL7C YL4oXMumC7hdSwpkeqg aA6hH9VoIZXbxeciXu9 3jC8iVkMcYkB8BIobWb c+OpACGRRcXXQSMf3YP FNVRTwvdGQ+PHRkIHN0 fHtrBCxrFETziY4xQBJ pR0b0VyBnZyX8QZvrJ6 WvSNHipqvkKf79qB5pX jVsIiI9CAnyE9DkhlP1 OGPjzJNnKPjnIRE7I34 jp5G6WTDrRZFdTYH8sE A8eC1ntZifhlwtoLIvz DsgdmVydGljYWwtYWxp S048HFFxvKtyLvFmQaH lGaX6KcK6T2QtCdw6PL WyhDibWG2ftDRuELylU v9erYeksRplEI8yNYNp hiyzRKDleP8sIVGbsBM toMgfPM4eOVNlkpxxw4 33PsYiNQZ8GAXhfRYmR 1GwdF9vVhIsKHUeRSYy I5WgtSFjITdlU014ONv gGtT0VCCnekPsC6UiNJ DuxBrrYwJ8i8G8Iq91S SBZZWFyczwvdGQ+PHRk FJU4pDmnJHtcHUDdoG8 sMKFrG3w9McPaZxW5MH eoY8YcAEPfqdqmHg96r B8fSfWmXtR4FXbtS9Rb qcH6JAQdjPDhLVloSYI 8Y46dh9E1MTKtDQIxHT O1mKY3yQ3okWwhpmiup GVmdDsgdmVydGljYWwt ZKmkX245FZMflTtyOwM FTUFMRTwvdGQ+PHRkIH C0pDwjWDzwYQXudF5mO PHhY6k6DtWzEwE0WFed F5ZmXNYjoqhhHe95aA7 uAmOjGbH2FKpoT4Ypxn E3LYEcyRChOIjqFQP9Y 19sz7Q1SAGoNOFaADZ8 zPK2mE1qkXfzsuevpZZ mdDsgdmVydGljYWwtYW fjR833NRTmdOtdRmVsV JDqSG4jsKegjES+PC90 hx59E1KdPkfnYaa1XFB lZPZ2zSD8cU1sVDOqJO zcn2E6ePQ9Y0LyknMqt i9td6ddFDQpVIcmS96l rBCiw5H1EEKowOW1KKT zcJhxDySieV26Ecl+PG UgaWhmg8QyArvfa3jsm 7bjiEt6KtZyMNBvooDw fTdyAEQ5l2GvHd33U48 sIHdpZHRoPSIzMCUiIH SeqEfjgk9urO0aUc0+P VQivUI3fWE3sN1tWaQl OcE4STvsP167IwYtvYY pBcvxs3bbi4kgnZm0Er NyYZOvacHoqXbwZQT3i 7YdTh24L6ZxeFxro2Ks Qct7na54iOUvv5H2gND 6E4XaGSZdvizcaTShmY fvFO6xPFQxftmpZBSvb X1qNUQnL0x1QeNgJvB2 SJyoQ6WyxyM4TYUouEH pVZXnzFOFqE8mvxhyk0 xbizmqVvAcDFBlYYr6M Xe0GBOltXftSsXpCDG9 CeE5TGD3gTNrxL7ilNw ujyonfX7pOnk+UGh5c2 pqoKXlSM5jmRC6NT48L W49dHXng6H1wDY8X1Me HACmadkmsqvctOA4RRQ lFDPsdQ15Bn1maVtgPt 6kSXEeHPG8GEKpxCHvT 0VhkA3pWlUhJFUuIHPz W8ObzTQrCEduM988AXk cPuU6GZYkyuXiL3SiHX XiaGmgDmC6u2H5Ae1UA T66DJ79PK87uLJmy4Q0 zQM0U5XnDQCmitaufqi xuEG1PXAwLTXlvK47Qp 5drShhNj7nEKCvZUR3G QMwjBSrN5XptV5oQwSz GZXnLXPeV4KtcFZzRVk nH278FWmaYlN5CQHqbi NrB3RgSQByaXjtIaU9x 2Q8Nr2KUo55LD36VN78 jCQhy7O9qQN5P1PkEVM wighfegsuzXB0ZURsNL HzcC70Cs6ltWlrTo6mN WNsAGK4CCOwlJTbG5Qz nF1aUfIpPYPcRFOlG7S ioXYtTQacC067AVdgHl G4VATkxfZyD2HvKHYsq NewMuS9r4I2Wr6OPWyj hdh0Q5MwJrmltVE+PC9 8AMCyXP27sXXmqXXso6 rmfFu2BdXfBTIpTFD4k QjbJOtay5FuPCPuE96d bGF (more content not included)... [facility] Coding Summaryon 12-01-2023 Coding Summary HTMLBase 64 AcyfsklqZBd8qBg+PGh lYWQ+TD8BEJRwX80nxZ BiaK0gP6GFNBxRGvgnI PXYMMsCFlXdjnGeOE5z aXNjZXJu IC8+QP7cYZTlEfrkhZA gi2B3fHZ1X90std7uIS ebbPY1TRAkVdQqzhoct 8bbhWy2GRuwAirnTqRi WONckG18EQP0nQ23Au4 9iCHnxCOwi2qvnLo1Mn MhOEYtBQM8iIvcAUeqt 4AcMIUiM00whONbi0R7 IGNvbGxhcHNlOyBlbXB 8wI3pNVxtpvmjb6nabw nhTnp8aj55kKGyl5U3p SV2R1OmwiH8XXWvgLRw FhxuoRJNiE7kblnbl4u fiiiyOzFlYSGvFKf0OJ i5JQQqiWmaOyHwWK65S ZA0VFKzvwYyD4IzPFOu aCrvSqU9n9O0Lu2PH1U JDldsC7WZGMHNDOfpfP Q+NQ76oo47C4EsPnmmX kn4KSQxYVC6aQN5hA7k LLSeDNrin0D2xAW7M5R bjyAqah6hi9ivMCAxBJ mwH82nfLBwn7Z5IXKze JP2QVYubLonKhLtfK58 Oyc+SSPcqIsfn7RjEtr hw7cnj6cksAl9WlmmVL PoyuWqrPakSMR0j1IwS d9cXWVlnVM4mTG7eP2n ReAhBpW9PAijE831JsA dlCPbMugiZ17vD3JngX A+ALTqMfo4HWVlzLtgG N1rD0IfIYOcuphdhCQf jYpaHP9aEAZkvjbqCZV okC5lIZYpG7f9RpXoDm J3JIxoC0BxFUInmkkiB a82uI9hYoClSkJ3ATbj O4EupxY8SDJolPVrEAh xHGO4I53tk5W3PZRyJI RdDTW5aMR7hU8btKodz jogbGVmdDsgdmVydGlj NJlgVEefE668AJSrfBd nPkNvZGluZyBEYXRlOi AgMDEvMjkvMjAyNDwvd GQ+KVOhBIG3yFizMOBb zRUeVDjgZm8smHwocGe sUF3zUZXgdmbeSUJsgF 3kQAIzwMTqvVabUL0yK QBalhhqq996TeKaYKR6 TNXqlGKtK9SjkN9oMxQ pNEVuTNOxW3MsfWTqMP nhV403YQjvYvZ0SBXaa jTkZ4AsDJPepGmiBwB2 f3P0Xj3Hm3HqopttM5H wvUCxMiLcCciuYLm1L9 RkPjwvdHI+FE41BZMzB T43CQy0RXS9yHyvVOnp USCeF8DvjS4lWkZlPHM kZGRkOyc+PHRhYmxlIH dpZHRoPScxMDAlJyBzd ZelML6uRd8tWGOaOJBs eAxlvEDyKgWgg1scFFI lPDoqUK5sgVruE9TewX J0RPVso0v0Wz02O01oR 3JvdXA+SAKsuXY8vPY8 yW2lKvOcChA7LLqlH84 1AuTzwZBiIhfmw1ubx9 ovvUz9AmH6JGYccpJlp OxhZWZ0m9DsLg06C66j IHdpZHRoPSIxNSUiIHZ ymAgbhf3riH2gFf5+PG BzzLU5tMP2cM1kOjOnV xR6KJdpS927SaWzsXAg Mhmdu1zya6wkbAy9BdV aXVLkauSgjWouTEB6m7 YbBj12Y9WliZhbx5RfU xv4sr31aJCgt3V9dLT2 Q8EwWAGkqyhlrGDkdYy pIR5yNCPelggcXGRkkS 1yZBXkY5v5EfOcIsI0R XigZ9LmrrQ7SEXxgWGo VODmjOVUxT6reosuc2r ynlvuOvDtWFOgKLk2SX x9AMCyvEvjSbTaHLW4D vU5YRQ1mMNoeS6bqGgv wexhfQ1eYio+VEX5jTA wvHRVHO0pJincjSL+PH MrHDM3bKhuFKjfUDRwf P6jUHGpB0b2LqEkRxO2 PRvbQ3JkxaL8ALDnyJB oVLZfeZRGwH6vuxmnd3 gnvbyjAsXpOBSxVTf7E Hg5XGBlrGphLrHcAEI8 NjG5PWT0uXSftO7ftVt pynsdvS0zJzj+QmlydG zkYLT7NKn8V6EmAfg7R ICchRlzEJ6byJTdMWfb Uc7eeSmfdTndCP0dSUB jpywsn178VwRdv2rxNP SitFLcGGxnMPN3Q62qf 6E5TPPzQJGiAYR2qWL2 tR9icWoudzbelAOyfCs gdmVydGljYWwtYWxpZ2 44YRWqpHcgQxAqSSn7R 7NdGro5YGZjoDpvQO2t ePVkKWiuCu1hoEnjtLl zLU0gMBIpgowav475Mz Iei5fuHRJmwBYkLEvoL SQ8M15nu2N5JIHaZLQy QEA2tEZ0rM3fjRcbtge gbGVmdDsgdmVydGljYW wlJEybV551IDHskYkyK yLfpIj4Y4RlMal5RHVf jDtmQP8woMEuYSzvGs7 jpQellEntFF6hPQWkkd ebx357CbZoh3gpSTSrv JPlREzqNCH3A80py4O1 PKQlAHWnGPF8sLI2vV4 hbGlnbjogbGVmdDsgdm PhvBkjKHneYXtnC790Q HRvcDsnPlBhdGllbnQg FNmbLNb4N8MgBbvpgQX +BV40TBRsRP12dWGozA Zhf6idqBm7YaHlKCNbC PX7nGjzMCmco1HiEERq N19hmWHwx9A1VMOviHq nsANwUkTikNP4jS1mTE crqqkrj0efnilaRkwkl 1hxxs47qR81T18rNCeu ZHRoPSIzMCUiIHZhbGl nuy0wqG7lYc9+PGNvbC M2dSM4fP3xZMZaPlE0C ExpX598JuJhtDMbNxny r0tnv3rxyHn1AhG8NOQ xlpAktWmuAFS2k3IoOh 06I73kBVdkMOXxGWTaA BVtTRShoBimwv4shK9u Ii8+LUQylIL7sOQ4nL4 fVoUdCvI6NZtuM879Mn IaoKCfGhkgZ68uJ9Udi XA+ZYMiVzp1MVAvyNzu IE1aoMYgZSozRc4jPRI 9IsBwMyRzFRwmH8IoFW TiobsodopvpMD3YFRuH BNtnT08Fw2shTqlRFTb yDQCsZ9zosces9gncwe nKvYfLIKsCPx8HCu4RT VpnRgxFmIrSCR7ErV3I PV4lAWjeD5hdZzuztnw jV2fB3YxEXSwjhimKk2 5yO7dQtUcZyK2TQrsGw c+NcADBWNzDYSSOk9SY FNVRTwvdGQ+PHRkIHN0 jFfaKOueYDRghW8tBVC gI3a3XuByUhM5CIoeV6 FmIOUctzeyNu96tX2uB zUfQxP5SPkaM7AojiR4 FYLjkIFwMDcnXOI4N41 wx5F6MJMhSMJeYDK4qA O1vG0zyLvysgswhDIuj DsgdmVydGljYWwtYWxp R243PYOvlWmxNyJaPzQ mYqG4QwY7V3OkNob2QC HfxZawYI3toIUnVVrxO r9ftFqxiAatCM6cTQDc gjlrOZFlaP3tLTXkwYN wgJcmTJ9cHHXvsbogx8 09NpMwESR1YYAgxRKbZ 0LviE1aPiRaHTVeLOUv G0VfdOOzEMekU613IXu wNaP4EOPsdsSkZ2OvFF RlaWsmEqQ8d8H1Mn83B SBZZWFyczwvdGQ+PHRk DFB5nShrLRrhXVMedZ0 eKJLtE4k4SxJoRbS6TV yfV3LzURDzdzjnSa50l F9oRyJeYfZ3HYimD0Ut tuH6ERFpzFZnOGmqCHX 1A76vp5N3CNGkRHPxXH C5kSR2qP4pkZjlwiesr GVmdDsgdmVydGljYWwt INrvY657BMWjiMumSbM FTUFMRTwvdGQ+PHRkIH E5ePfwWIjaYLCzbY2bQ RUeV1v5SvRuApI5BVln C0TlLOJmxpodFk96vM2 bIbNsOfT6NMgaE8Rkku A9BNAowPWeAPtcLXY7R 75xz3H5TCNsACCnQZY8 xWZ4hK8yzVurlmyqpVX mdDsgdmVydGljYWwtYW fjL869BCTvhOjgTmMoH LNtCG9beIamvXO+PC90 yt79O0KsVklqRkd2EER mONG3vDG1iN3dPCQlSC utt7V1kQJ0O5RalzWdz n5bs6yxOLEgRPjxU35q eJEcn4C3ZISudVV7MAW tfHbuCsVxmT47Mkp+PG GkaCqow0CnSjhrv5qnw 4ujeCv5QzNgHUGsjeHw rIbpHPI8o5IfTk92Q37 sIHdpZHRoPSIzMCUiIH ZneJjtzo0ygH8jOr1+P KLckWK3tCU1bX2pDtMd FpK9KAomL790CfRliOT qSkmeo9lqn8mhiDn4Xp YuIROwuvKqwWfmOSY2e 2KdVa40P4OzwDgvr9Nz Vuk7wx91cILrq5Q3xGR 3D9UcTWMllqfvwQEtgC hpPH3kGTDfnucvYHHcb R5nAAIsX3m1NuDiZoI2 RYlsT6ZvflO6XZIcgJF rALZeiNOQzG4mqkvow6 kllijtKhMmNGBwAOv2Q Sk5AOGlyLssAqJcMJX1 IuX6ICM5eNCzzO4ofFv timxgmG1zMys+UGh5c2 lvrOYjSH4uqBW3VC53C F86wOCww1Z8yET0S7Zw THJoaewdjyjkdRU1CMM tMUIvjZ24La2hhZojFe 8wWOPyKKY7FHAxsWEyF 7KdsQ6nDmEpEJKmHMCh W2BmxGVyTIskJ610ADh jZyB1UNItoeYzH3NlUU XloCahMbC5j6E7Ea5BB N11MX93FZ20iGXzh6F2 aFX0J5EtVCQqfefkmzh yaEV1TWNfMZPxmU73Yf 3wiQhpEl0iKMDsBTN9B VTwwEWqD3TedG4bJkHz PGScNAYiS5EboXKiVZr yY535AYwdRrE1MXAjfa EqF3MbWPFouOnuTcW8c 8I1Aw2LIp19YQ33PL34 gJEeh7N9iCP8N9ZvOIF ygkknoydcrAN1EQWqHT WzoK91Kp0ptCoaJo9pX FKbKXA8ZYSrwRXqI8Xv pV2vMpDjBWVoOXDnE9Y ltPCqNKalX935IVnuIa O8JEUqmoNkZ1AjLVBvl VbuTwR4r7H9Eo4WFWbf rxl3K0HpMjvceMG+PC9 6QHPvPT80rGWpuUUyz0 fcaYm8LrEhSOFgYLH9t MctAFocb2TvSTXmA00s F (more content not included)... Normal [facility] ED Clinical Summaryon 2023 ED Clinical Summary [facility] - Emergency Department [address] [place], [place] [id number] ED Clinical Summary PERSON INFORMATION Name: TOOTIE NICOLE Age: 47 Years Sex: FEMALE : 1975 MRN: Acct#: Visit Reason: Headache; MIGRAINE Arrival: 11/18/2023 21:15:56 Discharge: 11/18/2023 23:15:00 LOS: 000 02:00 Check In: 11/18/2023 21:15:56 Checkout:11/18/2023 23:15:00 Address: [address] [place] [id number] PCP: Romeo Chaidez DO PROVIDER INFORMATION Provider [...] DIAGNOSIS: 1:Migraine syndrome Patient Understands: Yes - 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 verbalizes understanding of instructions given Comment: [facility] ED Note-Nursingon 11-18-2023 ED Note-Nursing Mag infused. IV dc'd Site clear and cathlon intact. Pressure dressing applied. Pt states that her headache is better but is still having problems with her restless legs. pt has to stand and move around while getting discharge instructions. Pt told to follow up with her neurologist or to return if any problem s -05 [facility] ED Note-Nursing Saline lock started in the lt hand. Pt medicated with Toradol, Benadryl, Decadron and Compazine (compazine mixed with NS and pushed very slowly) IVP then would have Magnesium IVPB. Room remains dark and present. massages neck more -05 [facility] ED Note-Nursing Dr Ingram in to inject pt's neck with Lidocaine 1% -05 [facility] ED Note-Nursing Pt arrives with complaints [...] nauseated/dry heaves, not vomiting. positive photophobia -05 [facility] ED Patient Summaryon 024 ED Patient Summary [facility] - Emergency Department [address] [place] [address] PATIENT DISCHARGE INSTRUCTIONS Patient Information Name: TOOTIE NICOLE Age: 47 Years Date of : 1975 Reason For Visit: Headache; MIGRAINE Arrival Time: 11/18/2023 21:15:56 Primary Care Physician: Romeo Chaidez DO Attending Physician: Jeff Ingram MD Comment: Visit Diagnosis: Diagnoses This Visit Headache (43067420) Migraine syndrome (G43.909) The Pharmacy at [facility] is open Friday through Friday from 9A [...] alcohol and/or drug addiction problems; contact the [facility] 26/05 Crisis Hotline -Text 4IVVV to [phone]. If you received any narcotics, sedation, or [...] and treatment you received today in the [facility] Emergency Department were for an urgent problem and are not intended as complete care. It is important for you to follow up with a doctor, nurse practitioner, or physician?s preschool assistant for ongoing care. If your symptoms [...] of medications post discharge. Please inform your acid retort operator/provider of your visit and for further instruction on these medications. Any specific questions regarding your chronic medications and dosages should be discussed with your primary care physician(s) and/or pharmacist. Additional medications on your home medication list not specifically addressed. Please contact the ordering physician if you have questions about these medications. amphetamine-dextroa mphetamine (Adderall) 20 Milligram every day. estradiol (estradiol [...] [place] Consultation Noteon 11-04-19 Consultation Note [id number] 7D#1.00TIFF Normal [facility] Auto Diffon 10-01-2023 Basophils/100 WBC (Bld) 1.2 % Normal 0.0-2.0 [facility] Comment on above: Order Comment: Order Added by Discern Expert. Performed By: #### 1 [id number], 7995839, 2712120, 4141128, 842432473, 2604940, 2589907, 5160246, 2069416 ####[facility] [address] [place] [address] Basophils/Leukocytes Auto (Bld) [Pure # fraction] 0.1 E9/L Normal 0.0-0.2 [facility] Comment on above: Order Comment: Order Added by Discern Expert. Performed By: #### 1 [id number], 8532203, 7592966, 7499417, 784926620, 7994425, 1977580, 5557708, 2969766 ####[facility] [address] [place] [address] Eosinophils/100 WBC (Bld) 3.9 % Normal 0.0-8.0 [facility] Comment on above: Order Comment: Order Added by Discern Expert. Performed By: #### 1 1421645, 2562396, 2210102, 7461766, 832993524, 4342866, 8851778, 1563176, 2862280 ####[facility] [address] [place] [address] Eosinophils/Leukocyte s Auto (Bld) [Pure # fraction] 0.4 E9/L Normal 0.0-0.5 [facility] Comment on above: Order Comment: Order Added by Discern Expert. Performed By: #### 1 8871601, 0602023, 9819842, 6482633, 871704736, 7294690, 2723579, 1867538, 8365831 ####[facility] [address] [place] [address] Lymphocytes/100 WBC (Bld) 30.8 % Normal 14.0-50.0 [facility] Comment on above: Order Comment: Order Added by Discern Expert. Performed By: #### 1 8155336, 9017845, 9856723, 4851818, 395536524, 6825812, 9014120, 9034523, 4937474 ####[address] [place] [address] Lymphocytes/Leukocyte s Auto (Bld) [Pure # fraction] 3.0 E9/L Normal 1.0-4.0 [facility] Comment on above: Order Comment: Order Added by Discern Expert. Performed By: #### 1 5385806, 8395996, 1694055, 1781832, 864607977, 4462566, 4242583, 3318836, 5450089 ####[address] [address] Monocytes/100 WBC (Bld) 5.8 % Normal 4.0-14.0 [facility] Comment on above: Order Comment: Order Added by Discern Expert. Performed By: #### 1 9097903, 5902033, 8541826, 0522837, 869085378, 0371559, 6062152, 5361214, 6248378 ####[address] [place] [address] Monocytes/Leukocytes Auto (Bld) [Pure # fraction] 0.6 E9/L Normal 0.2-1.0 [facility] Comment on above: Order Comment: Order Added by Discern Expert. Performed By: #### 1 1190568, 6607391, 4045552, 1359347, 813758074, 7746784, 9464672, 5304806, 8372552 ####[address] [place] [address] Neutrophils/100 WBC (Bld) 58.3 % Normal 36.0-75.0 [facility] Comment on above: Order Comment: Order Added by Discern Expert. Performed By: #### 1 0531714, 8359686, 3400440, 2985775, 843281495, 5660935, 5332122, 7211858, 2551420 ####[facility] [address] [place] [address] Neutrophils/Leukocyte s Auto (Bld) [Pure # fraction] 5.6 E9/L Normal 2.0-7.5 [facility] Comment on above: Order Comment: Order Added by Discern Expert. Performed By: #### 1 7912539, 2489800, 3291067, 8638479, 259384461, 1668225, 1963353, 7045823, 3798310 ####[address] [place] [address] CBC w/ Auto Diffon Erythrocyte distribution width (RBC) [Ratio] 13.4 % Normal 10.9-14.2 [facility] Comment on above: Performed By: #### 1 1820607, 1473352, 1532015, 0617796, 443306746, 2046616, 3659473, 0920221, 4238563 ####[address] [place] [address] Hematocrit (Bld) [Volume fraction] 39.8 % Normal 34.0-46.0 [facility] Comment on above: Performed By: #### 1 8567679, 9955912, 8116391, 6134147, 371623839, 1910754, 6124793, 1527930, 3651883 ####[facility] [address] [place] [address] Hemoglobin (Bld) [Mass/Vol] 13.7 g/dL Normal 12.0-16.0 [facility] Comment on above: Performed By: #### 1 8424132, 6861866, 0044711, 1281121, 435486760, 5055529, 8073907, 5849690, 1965848 ####[address] [place] [address] MCH (RBC) [Entitic mass] 29.8 pg Normal 27.0-34.0 [facility] Comment on above: Performed By: #### 1 1893420, 7502245, 7976101, 6305857, 591984956, 2643068, 8961569, 0071698, 1823470 ####[facility] [address] [place] [address] MCHC (RBC) [Mass/Vol] 34.3 g/dL Normal 31.4-36.0 [facility] Comment on above: Performed By: #### 1 8150201, 0045449, 5208636, 6402106, 242572627, 1335569, 7022506, 4856207, 3183402 ####[facility] [address] [place] [address] MCV (RBC) [Entitic vol] 86.8 fL Normal 80.0-100.0 [facility] Comment on above: Performed By: #### 1 6821739, 2381955, 8336614, 7732028, 909717942, 4033451, 7921174, 0241481, 3613135 ####[facility] [address] [place] [address] Platelet mean volume (Bld) [Entitic vol] 7.7 fL Normal 6.4-10.8 [facility] Comment on above: Performed By: #### 1 1174131, 8086559, 9198733, 6744258, 710038333, 6283929, 2804165, 3756530, 7647610 ####[address] [address] Platelets (Bld) [#/Vol] 418.0 E9/L Normal 150.0-500.0 [facility] Comment on above: Performed By: #### 1 9112909, 0588256, 1763957, 2570762, 601494533, 2502691, 0620653, 9388736, 7444889 ####[facility] [address] [place] [address] RBC (Bld) [#/Vol] 4.6 E12/L Normal 4.3-5.9 [facility] Comment on above: Performed By: #### 1 9767515, 5333499, 2206803, 6045680, 141382461, 6134735, 1493896, 2738940, 7755932 ####[facility] [address] [place] [address] WBC corrected for nucl RBC Auto (Bld) [#/Vol] 9.6 E9/L Normal 4.0-11.0 [facility] Comment on above: Performed By: #### 1 3401095, 6770843, 2121308, 6648207, 671321998, 8787978, 6201839, 1680519, 3225210 ####[facility] [address] [place] [address] CHEMISTRYOrdered By: hike SYSTEM on 10-01-2023 Cobalamin (Vitamin B12) [Mass/Vol] [...] for Treatmenton 09-04 Consent for Treatment [id number] 42#1.00TIFF Normal [facility] Ferritinon 11-29-2023 Ferritin [Mass/Vol] 43 ng/mL Normal 11-307 [employer] [facility] Comment on above: Result Comment: NORM ALS MEN <30 YRS 16-132 ng/mL MEN >30 YRS 8-338 ng/mL WOMEN (PREMEN) 6-104 ng/mL WOMEN (POSTMEN) 12-210 ng/mL Performed By: #### 1 4585036, 4827728, 6827022, 4569243, 897176751, 6638708, 3434255, 1634056, 0636426 ####[facility] [address] [place] [address] Folateon 10-01-2023 Folate [Mass/Vol] 8.5 ng/mL Normal >=6.7 [facility] Comment on above: Performed By: #### 1 6936392, 7000553, 6766670, 4396479, 801635796, 7740721, 4033110, 0769542, 7393407 ####[facility] [address] [place] [address] HEMATOLOGYOrdered By: SYSTEM SYSTEM on 10-01-2023 Basophils/100 [...] 58.3 % Normal 36.0 - 75.0 % [facility] HemeAutoSS Neutrophils/Leukocyte s Auto (Bld) [Pure # fraction] 5.6 E9/L Normal 2.0 - 7.5 E9/L [facility] HemeAutoSS HEMATOLOGYOrdered By: Liza Reynoso on 10-01-2023 Erythrocyte distribution width (RBC) [Ratio] 13.4 % Normal 10.9 - 14.2 % [facility] HemeAutoSS Hematocrit (Bld) [Volume fraction] 39.8 % Normal 34.0 - 46.0 % [facility] HemeAutoSS Hemoglobin (Bld) [Mass/Vol] 13.7 g/dL Normal 12.0 - 16.0 gm/dL [facility] HemeAutoSS MCH (RBC) [Entitic mass] 29.8 pg Normal 27.0 - 34.0 pg [facility] HemeAutoSS MCHC (RBC) [Mass/Vol] 34.3 g/dL Normal 31.4 - 36.0 gm /dL [facility] HemeAutoSS MCV (RBC) [Entitic vol] 86.8 fL Normal 80.0 - 100.0 fL [facility] HemeAutoSS Platelet mean volume (Bld) [Entitic vol] 7.7 fL Normal 6.4 - 10.8 fL [facility] HemeAutoSS Platelets (Bld) [#/Vol] 418.0 E9/L Normal 150.0 - 500.0 E9/L [facility] HemeAutoSS RBC (Bld) [#/Vol] 4.6 E12/L Normal 4.3 - 5.9 E12/L [facility] HemeAutoSS WBC corrected for nucl RBC Auto (Bld) [#/Vol] 9.6 E9/L Normal 4.0 - 11.0 E9/L [facility] HemeAutoSS TslW1for 10-01-2023 HbA1c (Bld) [Mass fraction] 5.6 % Normal <=5.9 [facility] Comment on above: Performed By: #### 1 4295914, 0646140, 6777121, 4682160, 940864703, 6944628, 3063542, 0654947, 0409271 ####[facility] [address] [place] [address] Ironon 10-01-2023 Iron [Mass/Vol] 75 microgram/dL Normal 35-153 [facility] Comment on above: Performed By: #### 1 [id number], 8772694, 8547415, 1583119, [id number], 6807744, 4915866, 2161578, 3807573 ####[facility] [address] [place] [address] TSH With T4fr Reflexon 10-01 TSH Qn 0.96 m[IU]/L Normal 0.34-5.60 [facility] Comment on above: Performed By: #### 1 [id number], [id number], 2611592, 0793034, [id number], 0023102, 9766324, 2454142, 5491591 ####[facility] [address] [place] [address] Transferrinon 10-01-2023 Transferrin [Mass/Vol] 310 mg/dL Normal 200-370 [facility] Comment on above: Performed By: #### 1 [id number], 7734838, 7675204, 6399206, [id number], 9153661, 6327360, 1760011, 9037974 ####[facility] [address] [place] [address] Vit B12on 10-01-2023 Cobalamin (Vitamin B12) [Mass/Vol] 369 pg/mL Normal 50-1500 [facility] Comment on above: Performed By: #### 1 [id number], 4638319, 9058023, 9842268, [id number], 2351012, 8541611, 0179159, 7435256 ####[facility] [address] [place] [address] Coding Summaryon 09-20-2023 Coding Summary HTMLBase 64 SwuwovdsXEv7yNe+PGh lYWQ+AH2ECUNpA46dfR CgqU7gX8BJUSmLJeofU DIYUYvMNgXiujZxQH6h aXNjZXJu IC8+IH9dTLWxHpteqCE de1T7aOT8D72hrg6fLZ jvxUA2XFGlJySroofdp 2bsvPz1CIciYznbJfTi PXNpwJ63GTR5gU01Eh1 8tNBubSJpw2lloOv9Ck KgVEQqWZW7rQjrKFsdf 2SpZGVvD37fmHJrk6T6 IGNvbGxhcHNlOyBlbXB 8xA3iYLizudaai1cxyc bjIaa4al11bKYpw1I6u NQ4M2UrvwC6JDEatVEo AtcseFBRfN1fkwqqh2c eqnpkJyFfPBJaKCz2TR g9SJLjaRbkZfOyWV46A JO0JVBcxsLiT0FdXMHh aYkeRgA8n0U8Wl2EG1Y KNpueF7OWKBCBYTripI Q+TQ90ly29M1QaNidnX fg2CBBsUPK8eMZ6wR5w ITEyEMdxd4H5bIM9U7T hpiYnaw5lm5cjAZXkWU hmI68yqTYyw3R7ZCBec IB5QQYydEadUvItxH22 Oyc+CCBvyTmws8DiImq et3erj9lxkYs4UkihSV RuliDayJcmYUC5v3HsP g3oPOClnNB2iWC3yQ2g KbCeKqN3ZJydV033ApO qiDYjBluzQ15rH9TpzB A+SSGkBet9SROegYidG V8jZ5OdJJTxlcnrsLCv gAojXP0jUFEcwfkfSEF qsU7pUJRmL7n7FkVdVb D4WQnsV2JeYNLnizwdM r83uP7kMiGuMgB2GAxx M6JwyqF9XGRwcUGpEHe sJOB4O85rr7K3KXReHY NuNVB8rUO5cR0zzFghw jogbGVmdDsgdmVydGlj ITmlAHdaQ946RKIxnPw nPkNvZGluZyBEYXRlOi AgMTEvMTgvMjAyMzwvd GQ+FVYwPPS9iWhxLLPr hLWwAMciZg9wsPwskUa mFZ4rEEIlwtipPLTbhB 4pFLGbjHAdaCwrZJ8wB CFfiniji611PxFcNHN2 ZKQwnETuT4KudM4kIgS hYYSqQNSvT5CugTQcQL unC674LMqyMdV3CARsa qUtE7HeNOMooBraRvO8 v0C2Ia6Qy6FqprcpF4S yhCJnWdNiPdfrYHa5T8 RkPjwvdHI+MQ96JUQlZ D49IVd3NNI2mTgbRPwo YYHiV0RddE1jAlYmWKF kZGRkOyc+PHRhYmxlIH dpZHRoPScxMDAlJyBzd NxwLC1oPm3bHMXfOQCr sIlkqAJaZkMlv2jyYWY wPLcrQH8nzInqJ6EjtB P3BKUlv0w6Ht20T58iQ 3JvdXA+USQiyIL2aKP9 yR8kIhPtVvQ4AUjcM73 1IdMazMHnVwuys0nos6 twtLn6ZwU2UAIthwSqp SvdWZU8c1MkXz78A79j IHdpZHRoPSIxNSUiIHZ vcIflch9ozR1lQe3+PG RzcTL5xCN1xM1pNiIhB kD0NVugO402QgLzySFh Umcqs1ybh1sylRz5TyO cVIGywdSkpEjpLLS8f8 AsYo01G5ByhWpju0XoK rc1vb48vMTcn0F6jXF3 G0FpTFZkvfzkpTFxnVp iQC3dIJBsgqviVFJsvC 4sYMXaS3r0QrGvOgH5U WuvD5GfofK1WNUoyAFo NSOojVXGeR5owjpmq4o acsokNtBaQBXtURa0EU l8SZMspJwjIqPfBTS2Z fQ3EEC1gYKkuN8fjQxm juiyaL5tRps+GNX1aFY obPWFFI3cJktgiUN+PH XaYXE4bEudTGcxDKJsm I6mMRZdU4x3BcOnArY3 RJntC2ZpeuL5AFHqjQO uPEKmzKTHpQ4hhcuiz8 qfkmewVkOwNPRjTDy9S Wt6KKXizDxcCjRqCOK9 NxM4HKL5vBQjpR4mpHc kbpikcT9jFic+QmlydG wiRCA8DCs7W1QxAgb9R AXhoDvkKG0wyMGxMHxg Fs5etOtlrXadOZ5qGXZ wqnsxi563MdSxb9xmBK DmwJZgADrxZHK9V84ot 3B3OARnYSCjUUC5zPC3 vH0ioXnktyddySGbcPd gdmVydGljYWwtYWxpZ2 08ODOgoDazYeOsRId7E 5VlZxm5RVAkoXdyBR9e nHPgMLfqGt7gyXlgeSs kJD0eEPNehrwwa741Uy Kri3snJKLctEDuTUgjL AZ2P78yr3P4VSFmBFTt UQF6rFD5sP7hqHfhuqd gbGVmdDsgdmVydGljYW wdDGliD478HEAqcFvxJ iUplIh5X7VuJym5AYEc sVfwOD1cbEYuFJjvOq3 upOveuKgvKY4nITFepn rsy188UiTas5snCNEcs YAfEKwwTWX9H54nh8I1 VDFxKBOsRZN3nGZ4yP5 hbGlnbjogbGVmdDsgdm NblDvcKKybIRrdX516A HRvcDsnPlBhdGllbnQg JPelDGr0T1WqSrldjQG +VI56WBNmNV54pDMqhL Qdo7dulEx1TqOzRDGwE IY6uTbwXXtzi7BcUPWp F15ahSItp3K9GEMfcOn rdKWtZdOhtPL4nR3xJW eyayozw6wlrtckCckza 2meap66eG82J22zSLoa ZHRoPSIzMCUiIHZhbGl esj1rvI2nVh3+PGNvbC B4aXJ7uG6dHBEgGtJ8W PgpF815NsDaqWErKcqw c3wah2uxtUz0GuG7WRU mveOvbXgpECC9q9OyJt 92H82oVUnzFNYlMTLpW ZDtIKMwaNoodg7ztN2o Ii8+JXRhjPR5pKO7nG6 lBuZqGuO0AUzrQ013Bl XlgFViTpdzC14nX7Ljx XA+EBSmWhu0DICigKgw HO2cnZAzIWhpUy0vHIY 5HbJvAdQhWGtmI3HaRO NcifkitephbAD0GJLfP QBhzW07Ss2egFuuGUEu aOLUyY1opquca5zkocb vJjBgKRBgIVl5KCj9UT YoaGznXgGtOLQ6UbQ7K MA1kXEagL8ihJpemhgm wS5bU4CdQTKzfulfGu5 7lL3tZwYaCkL0KHolHk c+CkQCNWVmSGIDHk1FU FNVRTwvdGQ+PHRkIHN0 gBreQEniDMFsdE8pONV iD8s6OhFuZzL9HWxiC3 ZbSFFleybiLk82nM0wT dZiJfC4KPqaW7AltqD4 PSLxgLMqYHhaXJX5H71 zf3C5XPKcOMVzEKK2qN C6xE2ngUvwpdtjbUTpw DsgdmVydGljYWwtYWxp W436AZBuaCfhWwDtHhE qOpD0JzK0Z2SzPae9VP OnlHktLT4ysWFsQWdxL n6gpCsghGmrUL1cRVYp pottSFJecL4sWBBylGN dzNrrLK0kVSAtyhpic0 35QjZeRFO9TKQajDNzX 6UemO6tBbQrMWCxWHSp W5UtuZIuBOefU995JSs hWzH7VLUtfzNvR3EyHZ PerCgpWxC2z8N1Bv87O SBZZWFyczwvdGQ+PHRk IAZ8iVieIOmzNXTfcY7 tQPUnJ7m8XgZeDjP8NC ypW1YyYTRvsfqmUz73i E6jHkTiOgZ8KXusT0Bu oqT2TMRiyLLkZMwbNNA 3X93va9Z8XVGxSOAxOV C9qYG6eF8stFtwbzymo GVmdDsgdmVydGljYWwt CGsjN987MOLhkBolAqV FTUFMRTwvdGQ+PHRkIH Q2wRwhFOmqMUBjrN3eI WJvK5d7TlFbMqI3YOsf P2BuEGCueodeZy40sA7 zFdMxMqX4KYlhP4Hydq W8EUTznGEdUDvgWYO1M 22pj9L8URKsCMFoANI6 oCZ2qW6zaDvrulcjcQN mdDsgdmVydGljYWwtYW ryE774BITezYxdNrPqD QBlND0tuTlmkTR+PC90 ep48R6PtQffeTkl8QSH nUUU0xGY5wT2mYOWuKU dto7L0fNV4Y0ZvryIsn d1zj0hbMFZkVDxzQ45s dLGgn0M3WSNgiST2GKO ofRncTeWwjU84Jfx+PG EjxFftz8UjVyqwd9mqb 4aliFy2HmApRSRkyfNa oYcsKQE8e3XiZx09F67 sIHdpZHRoPSIzMCUiIH RovUgnbn6zjH2iXm6+P AWjmHH4vPP9wJ2dHsVj MzF1IFuzU064XiMlaMH kVcsya2nvi2awiWd6Dy CyUXJpmcFvuRelTRT6m 6PqAq86Y7BlyZjem2Nw Ztl5tt20wVXbn1D3yQM 9Q4YrQSJwuanlvVSsuV yhVG0dVUBthgxuNBNxt P3hBCBqE2b8WpRcCiK2 HCkgL6FsknS6GHWtzMS qNFPbcDKJaK6dyrtjh3 ltjpkqOvBtRGEqQMg7B Bc0ACHxoBkjRgJrCUJ7 JvA9WWL9wBMfdM1riYj lgvtnzU6sWlo+UGh5c2 bxbNYlXY4maLF4JF55H A17lUIds4Q2jAI4W8Ep HRWizttvfnvohTZ3NEE hQMNnlP24Qk5hlOreDk 3gDRMwBXD6JPQycRUaO 0NkxD8bXxMpRPQnEKKj Q3HdbPHfRSlmY968ZFp eShG2FWMdtoBhW4VqAT QirDqfOzC5c0I7Nm0RL N80QO90JM22uXNpj6E0 nIN7R4AyZFTkfqndiam utLT8VLSzYSKejW41Qv 1koWykWw9tOXUbYGP1G AAnwSMtA7GhxD1mSqQe HHYbKFWwW8XwrOGnCUb eG762LXwqIfZ0QKRalh VaO9ObFGWdfOkbEqC2y 4I9Pp0FAc02LG46SA02 dVNrg8O3jNN2N3XjUZY kwzjveqfthYH9CRBlLF DmfR50Dm1bvKbqKx1uO HOwTLP9YAHlgOCsX8Wx mL5aGuXtTRAeLQUaI0K qgWSePKuxX073OZkpFn A7ZPOwssKvR3MuVEGrp BurQtA5v1L2Co2YJYme nze4C4CjTkcedZC+PC9 5AICiDH38pTSgyUZek7 xydCp4VaSpRVDvADN6i [id number] bGF (more content not included)... [facility] Consent for Flu Vaccineon Consent for Flu Vaccine [id number] B#[id number] Normal [facility] Family Medicine Office/Clini c Noteon 09-17-2023 Family Medicine Office/Clinic Note Chief Complaint F/u HPI Staff 3 month F/U ADHD followup: Sleeping well: Yes, 6-8 hours Blood pressure:Reviewed, _ Concerns/complaints : None Controlled substance:yes Urine Drug Screen done: [...] has ADHD and struggles with anger issues 07/24/2023-neurology -Lisa Martínez Botox injections for chronic migraines Patient tolerated 07/23/2023-neurology -Lisa Martínez Chronic migraines Noted to be due [...] no si (more content not included)... Normal [facility] Comment on above: Result Comment: Elec tronically Signed By: Romeo Chaidez DO\.br\Date and Time Signed: 09/17/23 17:33 EST ED Clinical Summaryon 2022 ED Clinical Summary [facility] Emergency Department [address] [place], [place] [id number] ED Clinical Summary PERSON INFORMATION Name: TOOTIE NICOLE Age: 47 Years Sex: FEMALE : 1975 MRN: Acct#: Visit Reason: Headache - Recurrent; Nausea; Neurologic problem; HEADACHE Arrival: 09/15/2023 21:33:37 Discharge: 09/15/2023 23:42:00 LOS: 000 02:09 Check In: 09/15/2023 21:33:37 Checkout:09/15/2023 23:42:00 Address: [address] [place] [id number] PCP: Romeo Chaidez DO PROVIDER INFORMATION Provider [...] Home PATIENT EDUCATION INFORMATION Instructions: Migraine Headache, [id number] Follow-Up: With: Address: When: Lisa Martínez [address] [place] [phone] Business (1) Within 3 to 5 days Comments: home continue with Dr Martínez, call her office tomorrow for a recheck apt you are welcomed to return anytime. 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 Surgical history: Rhinoplasty ([id number]) on 07/10/2016 at 40 Years. DNS (deviated nasal septum) ([id number]) on 07/10/2016 at 40 Years. Nasal polypectomy ([id number]). Appendectomy ([id number]).. Family history: No family history items have [...] tobacco Number used per day: 12 ppd 09/15/2023 Smoking tobacco use: Current everyday [...] home Impression and Plan Diagnosis Migraine variant ([id number] G43.809, Discharge, Medical) Plan Condition: Improved. Disposition: Discharged: time 09/15/2023 23:27:00. Patient was given the following educational materials: Migraine Headache, Yuga-am-Mnxz. Follow up with: ; Lisa Martínez Within 3 to 5 [address] continue with Dr Martínez, call her office tomorrow for a recheck apt you are welcomed to return anytime. Sanjay MATT< ER PHYSICIAN< Verna Cornelius. [Electronically Signed on: 09/16/2023 02:56 EST] __ Tru Matt DO [Verified on: 09/16/2023 02:56 EST] __ Tru Matt DO Normal [facility] ED Patient Summaryon 023 ED Patient Summary [facility] - Emergency Department [address] [place] [address] PATIENT DISCHARGE INSTRUCTIONS Patient Information Name: TOOTIE NICOLE Age: 47 Years Date of : 1975 Reason For Visit: Headache - Recurrent; Nausea; Neurologic problem; HEADACHE Arrival Time: 09/15/2023 21:33:37 Primary Care Physician: Romeo Chaidez DO Attending Physician: Tru Matt DO Comment: Visit Diagnosis: Diagnoses This Visit Headache - Recurrent ([id number]) Migraine variant (G43.809) Nausea ([id number]) Neurologic problem ([id number]) The Pharmacy at [facility] is open Friday through Friday from 9A [...] problems; contact the [facility] 26/05 Crisis Hotline -Text 4HOXG ve [phone]. If you received any narcotics, sedation, or [...] Address: When: Lisa Martínez [address] [place] [address] Business (1) Within 3 to 5 days Comments: home continue with Dr Martínez, call her office tomorrow for a recheck apt you are welcomed to return anytime. Sanjay MATT< ER PHYSICIAN< Verna Cornelius Medication Information: The exam and treatment you received today in the [facility] Emergency Department were for an urgent problem and are not intended as complete care. It is important for you to follow up with a doctor, nurse practitioner, or physician?s preschool assistant for ongoing care. If your symptoms [...] of medications post discharge. Please inform your acid retort operator/provider of your visit and for further instruction on these medications. Any specific questions regarding your chronic medications and dosages should be discussed with your primary care physician(s) and/or pharmacist. Medications to Continue That Have Not Changed Other Medications amphetamine-dextroa mphetamine (Adderall) ARIPiprazole (ARIPiprazole 2 mg oral tablet) [...] bpm Re (more content not included)... Normal [facility] 03-18-2023 [facility] Office Visit (PLASMN) ---- TOOTIE NICOLE ([id number]) 1975 F Date Time Provider Department 03/18/23 [...] Status:Closed by REMIGIO TRUJILLO on 03/18/23 Normal [facility] CARDIAC YAJAIRA ADMITon 023 CK [Catalytic activity/Vol] 104 U/L Normal 26-192 [facility] Comment on above: Performed By: #### C MADM, BMP #### [facility] [address] [place] [address] Dr. Fabian Rivas CK.MB [Mass/Vol] 0.90 ng/mL Normal <=3.60 [facility] Comment on above: Performed By: #### C MADM, BMP #### [facility] [address] [place] [address] Dr. Fabian Rivas HSTROP <4.0 Normal 4.0-51.3 [facility] Comment on above: Result Comment: CUT- OFF POINTS HAVE BEEN ESTABLISHED BASED ON THE FOURTH UNIVERSAL DEFINITIONS OF MYOCARDIAL INFARCTION. THE UPPER REFERENCE LIMIT (URL) OF TROPONIN, DEFINED THE 99TH PERCENTILE OF cTnI DISTRIBUTION IN A REFERENCE POPULATION, HAS BEEN CONFIRMED THE DECISION THRESHOLD FOR VA DIAGNOSIS. Performed By: #### C MADM, BMP #### [facility] [address] [place] [address] Dr. Fabian Rivas NORMAN 32 ng/mL Normal 9-82 [facility] Comment on above: Performed By: #### C MADM, BMP #### [facility] [address] [place] [address] Dr. Fabian Rivas CBC AUTO DIFFon 11-24-2022 BASO # 0.1 103/ul Normal 0.0-0.1 [facility] Comment on above: Performed By: #### C BC #### [facility] [address] [place] [address] Dr. Fabian Rivas Basophils/100 WBC (Bld) 0.9 % Normal 0.2-2.0 [facility] Comment on above: Performed By: #### C BC #### [facility] [address] [place] [address] Dr. Fabian Rivas EO # 0.4 103/ul Normal 0.0-0.7 [facility] Comment on above: Performed By: #### C BC #### [facility] [address] [place] [address] Dr. Fabian Rivas Eosinophils/100 WBC (Bld) 3.8 % Normal 0.9-7.0 [facility] Comment on above: Performed By: #### C BC #### [facility] [address] [place] [address] Dr. Fabian Rivas Erythrocyte distribution width (RBC) [Ratio] 13.4 % Normal 11.0-15.0 [facility] Comment on above: Performed By: #### C BC #### [facility] [address] [place] [address] Dr. Fabian Rivas Hematocrit (Bld) [Volume fraction] 36.8 % Normal 36.0-48.0 [facility] Comment on above: Performed By: #### C BC #### [facility] [address] [place] [address] Dr. Fabian Rivas Hemoglobin (Bld) [Mass/Vol] 12.9 g/dL Normal 12.0-16.0 [facility] Comment on above: Performed By: #### C BC #### [facility] [address] [place] [address] Dr. Fabian Rivas IG # 0.02 10e3/ul Normal 0.00-0.03 [facility] Comment on above: Performed By: #### C BC #### [facility] [address] [place] [address] Dr. Fabian Rivas IG % 0.2 % Normal 0.0-0.5 [facility] Comment on above: Performed By: #### C BC #### [facility] [address] [place] [address] Dr. Fabian Rivas LYMPH # 2.7 103/ul Normal 1.2-3.8 [facility] Comment on above: Performed By: #### C BC #### [facility] [address] [place] [address] Dr. Fabian Rivas Lymphocytes/100 WBC (Bld) 27.3 % Normal 20.5-60.0 [facility] Comment on above: Performed By: #### C BC #### [facility] [address] [place] [address] Dr. Fabian Rivas MANUAL DIFF REQ NO Normal [facility] Comment on above: Performed By: #### C BC #### [facility] [address] [place] [address] Dr. Fabian Rivas MCH (RBC) [Entitic mass] 28.5 pg Normal 26.7-34.0 [facility] Comment on above: Performed By: #### C BC #### [facility] [address] [place] [address] Dr. Fabian Rivas MCHC (RBC) [Mass/Vol] 35.1 g/dL Normal 29.9-35.2 [facility] Comment on above: Performed By: #### C BC #### [facility] [address] [place] [address] Dr. Fabian Rivas MCV (RBC) [Entitic vol] 81.4 fL Normal 81.0-99.0 [facility] Comment on above: Performed By: #### C BC #### [facility] [address] [place] [address] Dr. Fabian Rivas MONO # 0.5 103/ul Normal 0.3-0.8 [facility] Comment on above: Performed By: #### C BC #### [facility] [address] [place] [address] Dr. Fabian Rivas Monocytes/100 WBC (Bld) 5.3 % Normal 1.7-12.0 [facility] Comment on above: Performed By: #### C BC #### [facility] [address] [place] [address] Dr. Fabian Rivas NEUT # 6.1 103/ul Normal 1.4-6.5 [facility] Comment on above: Performed By: #### C BC #### [facility] [address] [place] [address] Dr. Fabian Rivas Neutrophils/100 WBC (Bld) 62.5 % Normal 43.0-75.0 [facility] Comment on above: Performed By: #### C BC #### [facility] [address] [place] [address] Dr. Fabian Rivas Platelet mean volume (Bld) [Entitic vol] 9.7 fL Normal 9.5-13.5 [facility] Comment on above: Performed By: #### C BC #### [facility] [address] [place] [address] [address] Fabian Rivas PLT 347 103/ul Normal 150-450 [facility] Comment on above: Performed By: #### C BC #### [facility] [address] [place] [address] Dr. Fabian Rivas RBC 4.52 106/ul Normal 4.20-5.40 [facility] Comment on above: Performed By: #### C BC #### [facility] [address] [address] [address] Fabian Rivas WBC 9.7 103/ul Normal 4.0-11.0 [facility] Comment on above: Performed By: #### C BC #### [facility] [address] [place] [address] Dr. Fabian Rivas PROF CHEM 8 (BAS METB)on Anion gap [Moles/Vol] 14.9 mmol/L Normal [facility] Comment on above: Performed By: #### C CARMEN, BMP #### [facility] [address] [place] [address] Dr. Fabian Rivas Calcium [Mass/Vol] 9.2 mg/dL Normal 8.5-10.1 [facility] Comment on above: Performed By: #### C CARMEN, BMP #### [facility] [address] [place] [address] Dr. Fabian Rivas Chloride [Moles/Vol] 103 mmol/L Normal 98-107 [facility] Comment on above: Performed By: #### C CARMEN, BMP #### [facility] [address] [place] [address] Dr. Fabian Rivas CO2 [Moles/Vol] 25.5 mmol/L Normal 21.0-32.0 [facility] Comment on above: Performed By: #### C CARMEN, BMP #### [facility] [address] [place] [address] Dr. Fabian Rivas Creatinine [Mass/Vol] 0.56 mg/dL Normal 0.55-1.02 [facility] Comment on above: Performed By: #### C MADM, BMP #### [facility] [address] [place] [address] [address] Fabian Rivas EGFR-AF [place] >60 Normal >=60 [facility] Comment on above: Performed By: #### C STACIM, BMP #### [facility] [address] [place] [address] [address] Fabian Rivas EGFR-NON AF [place] >60 Normal >=60 [facility] Comment on above: Performed By: #### C STACIM, BMP #### [facility] [address] [address] [address] Fabian Rivas Glucose [Mass/Vol] 100 mg/dL Normal 74-106 [facility] Comment on above: Performed By: #### C CARMEN, BMP #### [facility] [address] [address] [address] Fabian Rivas Potassium [Moles/Vol] 4.4 mmol/L Normal 3.5-5.1 [facility] Comment on above: Performed By: #### C CARMEN, BMP #### [facility] [address] [address] [address] Fabian Rivas Sodium [Moles/Vol] 139 mmol/L Normal 136-[address] [facility] Comment on above: Performed By: #### C CARMEN, BMP #### [facility] [address] [address] [address] Fabian Rivas Urea nitrogen [Mass/Vol] 11.0 mg/dL Normal 7.0-18.0 [facility] Comment on above: Performed By: #### C CARMEN, BMP #### [facility] [address] [address] [address] Fabian Rivas Urea nitrogen/Creatinine [Mass ratio] 19.6 mg/mg Normal [facility] Comment on above: Performed By: #### C CARMEN, BMP #### [facility] [address] [address] [address] Fabian Rivas XR CHEST 1 Von 11-24-2022 XR CHEST 1 V EXAM: XR CHEST 1 V INDICATION: CHEST PAIN, UNSPECIFIED. COMPARISON: None. TECHNIQUE: Single frontal view of the chest FINDINGS: Normal cardiomediastinal contours. Clear lungs. No pleural effusion or pneumothorax. No acute osseous abnormality. IMPRESSION: No acute cardiopulmonary process. Electronically authenticated by: ILIANA BERMUDEZ Date: 2022-11-24 15:28 Normal [facility] Albumin [Mass/volume] in Ser um or PlasmaOrdered By: Myron Sullivan on 05-22-2022 Albumin [Mass/Vol] 3.2 g/dL 3.2-5.5 [facility] Automated erythrocytes count in urine sediment (number/area)Ordered By: Myron Sullivan on 05-22-2022 RBC Auto (Urine sed) [#/Area] 3-4 [HPF] 0-4 [facility] Automated leukocytes count i n urine sediment (number/area)Ordered By: Myron Sullivan on 05-22-2022 WBC Auto (Urine sed) [#/Area] 3-4 [HPF] 0-4 [facility] Bilirubin Test strip Ql (U)O rdered By: Myron Sullivan on 05-22-2022 Bilirubin Ql (U) Negative Negative [facility] Blood Cultureon 05-22-2022 Bacteria identified Cx Nom (Bld) NO GROWTH 5 DAYS PERFORMED BY: [place] [address] PATHOLOGIST BARREL POLISHER INSIDE SCARLETT MARIN M.D. Normal [facility] Comment on above: Performed By: #### L ROBBY BEAL #### [address] Blood hemoglobin measurement (mass/volume)Ordered By: Myron Sullivan on 05-22-2022 Hemoglobin (Bld) [Mass/Vol] 10.2 g/dL 11.8-15.4 [facility] COVID-19 Antigenon 2 COVID-19 Antigen Healthcare Worker?: [...] signs and symptoms consistent with COVID-19. The [employer] SARS Antigen SHAQ does not differentiate between SARS-CoV and SARS-CoV-2. This test was developed and its performance characteristic determined by [employer] and validated at [facility]. This test has not been FDA cleared [...] for SARS Antigen by SHAQ PERFORMED BY: [place] [address] PATHOLOGIST BARREL POL[employer]ER INSIDE SCARLETT MARIN M.D. Normal [facility] Comment on above: Performed By: #### C OVID-19 JANINE, SOFIANEG #### [address] COVID-19 SOFIAOrdered By: Alejandro Shaikh on 05-22-2022 SARS-CoV+SARS-CoV-2 (COVID-19) Ag IA.rapid Ql (Resp) Negative Negative [facility] Comment on above: This is a duplicate Janine SARS Antigen (SHAQ) result to be used for statistical tracking purpose only. CT abdomen pelvis w wallace CT abdomen pelvis w con [facility] [place] [address] [place] [address] CT Scan Report Signed Patient: Tootie Nicole MR#: [id number] 0 : 1975 Acct:[id number] Age/Sex: 46 / F ADM Date: 05/22/22 Loc: ER Room: Type: [facility] ER Attending Dr: Copies to: Brady Shaikh [...] Yajaira Goodson M.D.05/22/2022 8:24 AM Dictation Location: [place] [address] Transcribed By: [facility] 05/22/22823 Dictated By: Yajaira Goodson II, MD 05/22/22813 Signed By: 05/22/22823 Normal [facility] Color Auto (U)Ordered By: Elsy Sullivan on 05-22-2022 Color (U) Yellow Yellow [facility] Comprehensive Metabolic Pane skyler 05-22-2022 Albumin [Mass/Vol] 3.2 g/dL Normal 3.2-5.5 [facility] Comment on above: Performed By: #### C BCNO, CMP, LIPASE, ADDONUAPLUS ####[address] Albumin/Globulin [Mass ratio] 1.0 {ratio} Normal [facility] Comment on above: Performed By: #### C BCNO, CMP, LIPASE, ADDONUAPLUS ####[place] [address] [place] [id number] [facility] ALP [Catalytic activity/Vol] 44 U/L Normal 32-92 [facility] Comment on above: Performed By: #### C BCNO, CMP, LIPASE, ADDONUAPLUS ####[address] [address] [facility] ALT [Catalytic activity/Vol] 22 U/L Normal 10-60 [facility] Comment on above: Performed By: #### C BCNO, CMP, LIPASE, ADDONUAPLUS ####[facility] [place] [address] [facility] AST [Catalytic activity/Vol] 19 U/L Normal 10-42 [facility] Comment on above: Performed By: #### C BCNO, CMP, LIPASE, ADDONUAPLUS ####[address] Bilirubin [Mass/Vol] 0.6 mg/dL Normal 0.3-1.2 [facility] Comment on above: Performed By: #### C BCNO, CMP, LIPASE, ADDONUAPLUS ####[place] [id number] [facility] Calcium [Mass/Vol] 9.2 mg/dL Normal 8.2-10.2 [facility] Comment on above: Performed By: #### C BCNO, CMP, LIPASE, ADDONUAPLUS ####[place] [id number] [facility] Chloride [Moles/Vol] 104 mmol/L Normal 95-114 [facility] Comment on above: Performed By: #### C BCNO, CMP, LIPASE, ADDONUAPLUS ####[address] CO2 [Moles/Vol] 23.0 mmol/L Normal 22.0-30.0 [facility] Comment on above: Performed By: #### C BCNO, CMP, LIPASE, ADDONUAPLUS ####[place] [id number] [facility] Creatinine [Mass/Vol] 0.56 mg/dL Normal 0.44-1.03 [facility] Comment on above: Performed By: #### C BCNO, CMP, LIPASE, ADDONUAPLUS ####[address] Estimated GFR ( Padmini > 60 [facility] Comment on above: Result Comment: GFR estimated reference range: According to KDOQI guidelines, <60 ml/min/1.73m2 is sufficient to diagnose a patient with chronic kidney disease. Performed By: #### C BCNO, CMP, LIPASE, ADDONUAPLUS ####[address] Estimated GFR (Non- Am > 60 [facility] Comment on above: Performed By: #### C BCNO, CMP, LIPASE, ADDONUAPLUS ####[place] [address] [place] [address] [facility] Globulin (S) [Mass/Vol] 3.3 g/dL Normal [facility] Comment on above: Performed By: #### C BCNO, CMP, LIPASE, ADDONUAPLUS ####[place] [address] [place] [id number] [facility] Glucose [Mass/Vol] 104 mg/dL High 70-100 [facility] Comment on above: Result Comment: [facility] Glucose Reference Range is dependent on time and content of last meal. Glucose of more than 200 mg/dL in a nonstressed, ambulatory subject supports the diagnosis of Diabetes Mellitus. ADA recommended reference range Performed By: #### C BCNO, CMP, LIPASE, ADDONUAPLUS ####[place] [id number] [facility] Potassium [Moles/Vol] 3.7 mmol/L Normal 3.5-5.1 [facility] Comment on above: Performed By: #### C BCNO, CMP, LIPASE, ADDONUAPLUS ####[address] [address] [facility] Protein [Mass/Vol] 6.5 g/dL Normal 6.1-7.9 [facility] Comment on above: Performed By: #### C BCNO, CMP, LIPASE, ADDONUAPLUS ####[address] [address] [facility] Sodium [Moles/Vol] 136 mmol/L Normal 136-146 [facility] Comment on above: Performed By: #### C BCNO, CMP, LIPASE, ADDONUAPLUS ####[address] [address] [facility] Urea nitrogen [Mass/Vol] 10 mg/dL Normal 9-23 [facility] Comment on above: Performed By: #### C BCNO, CMP, LIPASE, ADDONUAPLUS ####[address] [address] [facility] Creatinine and Glomerular fi ltration rate.predicted panel (S/P/Bld)Ordered By: Myron Sullivan on 05-22-2022 Creatinine [Mass/Vol] 0.56 mg/dL 0.44-1.03 [facility] Dipstick and Microscopicon 0 05-22-2022 Appearance (U) Clear Normal Clear [facility] Comment on above: Order Comment: Name Collection Type:: Collection Method Unknown Performed By: #### C BCNO, CMP, LIPASE, ADDONUAPLUS ####[address] Bacteria,Urine None Seen Normal None Seen [facility] Comment on above: Order Comment: Name Collection Type:: Collection Method Unknown Performed By: #### C BCNO, CMP, LIPASE, ADDONUAPLUS ####[address] Bilirubin,Urine Negative Normal Negative [facility] Comment on above: Order Comment: Name Collection Type:: Collection Method Unknown Performed By: #### C BCNO, CMP, LIPASE, ADDONUAPLUS ####[address] Color (U) Yellow Normal Yellow [facility] Comment on above: Order Comment: Name Collection Type:: Collection Method Unknown Performed By: #### C BCNO, CMP, LIPASE, ADDONUAPLUS ####[address] Glucose Ql (U) Normal Normal Normal [facility] Comment on above: Order Comment: Name Collection Type:: Collection Method Unknown Performed By: #### C BCNO, CMP, LIPASE, ADDONUAPLUS ####[place] [id number] [facility] Hyaline Casts,Urine 0-8 Normal 0-8 [facility] Comment on above: Order Comment: Name Collection Type:: Collection Method Unknown Result Comment: PERF ORMED BY: [facility] [address] [place] [address] PATHOLOGIST [employer] INSIDE SCARLETT MARIN M.D. Performed By: #### C BCNO, CMP, LIPASE, ADDONUAPLUS ####[address] Ketones Ql (U) Negative Normal Negative [facility] Comment on above: Order Comment: Name Collection Type:: Collection Method Unknown Performed By: #### C BCNO, CMP, LIPASE, ADDONUAPLUS ####[address] [address] [facility] Leukocyte esterase Test strip Ql (U) Negative Normal Negative [facility] Comment on above: Order Comment: Name Collection Type:: Collection Method Unknown Performed By: #### C BCNO, CMP, LIPASE, ADDONUAPLUS ####[address] [address] [facility] Nitrite,Urine Negative Normal Negative [facility] Comment on above: Order Comment: Name Collection Type:: Collection Method Unknown Performed By: #### C BCNO, CMP, LIPASE, ADDONUAPLUS ####[address] [address] [facility] Occult Blood,Urine 2+ High Negative [facility] Comment on above: Order Comment: Name Collection Type:: Collection Method Unknown Result Comment: PERF ORMED BY: [facility] [address] [place] [place] [address] PATHOLOGIST [employer] SCARLETT MARIN M.D. Performed By: #### C BCNO, CMP, LIPASE, ADDONUAPLUS ####[address] [address] [facility] pH (U) 5.5 [pH] Normal 5.0-9.0 [facility] Comment on above: Order Comment: Name Collection Type:: Collection Method Unknown Performed By: #### C BCNO, CMP, LIPASE, ADDONUAPLUS ####[address] [address] [facility] Protein,Urine Negative Normal Negative [facility] Comment on above: Order Comment: Name Collection Type:: Collection Method Unknown Performed By: #### C BCNO, CMP, LIPASE, ADDONUAPLUS ####[address] [address] [facility] RBC,Urine 3-4 Normal 0-4 [facility] Comment on above: Order Comment: Name Collection Type:: Collection Method Unknown Performed By: #### C BCNO, CMP, LIPASE, ADDONUAPLUS ####[address] Specificy [place],Urine 1.016 Normal 1.001-1.030 [facility] Comment on above: Order Comment: Name Collection Type:: Collection Method Unknown Performed By: #### C BCNO, CMP, LIPASE, ADDONUAPLUS ####[address] Squamous Epithelial Cell,Urine 5-9 High 0-2 [facility] Comment on above: Order Comment: Name Collection Type:: Collection Method Unknown Performed By: #### C BCNO, CMP, LIPASE, ADDONUAPLUS ####[address] Urobilinogen,Urine Normal Normal Normal [facility] Comment on above: Order Comment: Name Collection Type:: Collection Method Unknown Performed By: #### C BCNO, CMP, LIPASE, ADDONUAPLUS ####[place] [id number] [facility] WBC,Urine 3-4 Normal 0-4 [facility] Comment on above: Order Comment: Name Collection Type:: Collection Method Unknown Performed By: #### C BCNO, CMP, LIPASE, ADDONUAPLUS ####[address] Erythrocyte distribution wid th Auto (RBC) [Ratio]Ordered By: Myron Sullivan on 05-22-2022 Erythrocyte distribution width (RBC) [Ratio] 12.7 % 11.9-15.3 [facility] Estimated glomerular filtrat ion rate (GFR) non- AmericanOrdered By: Myron Sullivan on 05-22-2022 GFR/1.73 sq M.predicted among non-blacks MDRD (S/P/Bld) [Vol rate/Area] > 60 mL/Min [facility] Globulin Calc (S) [Mass/Vol] Ordered By: Myron Sullivan on 05-22-2022 Globulin (S) [Mass/Vol] 3.3 g/dL [facility] Hematocrit Auto (Bld) [Volum e fraction]Ordered By: Myron Sullivan on 05-22-2022 Hematocrit (Bld) [Volume fraction] 30.1 % 34.0-46.4 [facility] Hemogram CBC Without Diffon 05-22-2022 Erythrocyte distribution width (RBC) [Ratio] 12.7 % Normal 11.9-15.3 [facility] Comment on above: Performed By: #### C BCNO, CMP, LIPASE, ADDONUAPLUS ####[address] Hematocrit (Bld) [Volume fraction] 30.1 % Low 34.0-46.4 [facility] Comment on above: Performed By: #### C BCNO, CMP, LIPASE, ADDONUAPLUS ####[address] Hemoglobin (Bld) [Mass/Vol] 10.2 g/dL Low 11.8-15.4 [facility] Comment on above: Performed By: #### C BCNO, CMP, LIPASE, ADDONUAPLUS ####[place] [id number] [facility] MCH (RBC) [Entitic mass] 29.7 pg Normal 24.7-34.3 [facility] Comment on above: Performed By: #### C BCNO, CMP, LIPASE, ADDONUAPLUS ####[place] [phone] [facility] MCV (RBC) [Entitic vol] 87.8 fL Normal 80-100 [facility] Comment on above: Performed By: #### C BCNO, CMP, LIPASE, ADDONUAPLUS ####[place] [id number] [facility] Mean Corpuscular HGB Conc 33.8 g/dL Normal 32.0-35.0 [facility] Comment on above: Performed By: #### C BCNO, CMP, LIPASE, ADDONUAPLUS ####[place] [id number] [facility] Platelet mean volume (Bld) [Entitic vol] 6.9 fL Normal 6.3-10.7 [facility] Comment on above: Result Comment: PERF ORMED BY: [address] [place] [address] PATHOLOGIST [employer] SCARLETT MARIN M.D. Performed By: #### C BCNO, CMP, LIPASE, ADDONUAPLUS ####[place] [address] [place] [address] [facility] Platelets (Bld) [#/Vol] 576 10*3/uL High 150-450 [facility] Comment on above: Performed By: #### C BCNO, CMP, LIPASE, ADDONUAPLUS ####[place] [address] [place] [phone] [facility] RBC (Bld) [#/Vol] 3.43 10*6/uL Low 3.60-5.00 [facility] Comment on above: Performed By: #### C BCNO, CMP, LIPASE, ADDONUAPLUS ####[place] [address] [place] [phone] [facility] WBC (Bld) [#/Vol] 14.4 10*3/uL High 3.8-11.6 [facility] Comment on above: Performed By: #### C BCNO, CMP, LIPASE, ADDONUAPLUS ####[place] [id number] [place] [phone] [facility] Ketones Auto test strip (U) [Mass/Vol]Ordered By: Myron Sullivan on 05-22-2022 Ketones (U) [Mass/Vol] Negative Negative [facility] Laboratory - Chemistry and C hemistry - challengeOrdered By: Myron Sullivan on 05-22-2022 Lipase [Catalytic activity/Vol] 23.0 U/L 22-51 [facility] Laboratory - UrinalysisOrder ed By: Myron Sullivan on 05-22-2022 Hyaline casts LM Ql (Urine sed) 0-8 [LPF] 0-8 [facility] Lactic Acidon 05-22-2022 Lactate [Moles/Vol] 0.7 mmol/L Normal 0.5-2.2 [facility] Comment on above: Result Comment: PERF ORMED BY: [facility] [address] [place] [address] PATHOLOGIST [employer] SCARLETT MARIN M.D. Performed By: #### L ACTIC, CUBLD #### [facility] [address] Lipaseon 05-22-2022 Lipase [Catalytic activity/Vol] 23.0 U/L Normal 22-51 [facility] Comment on above: Result Comment: PERF ORMED BY: [facility] [address] [place] [address] PATHOLOGIST [employer] SCARLETT MARIN M.D. Performed By: #### C BCNO, CMP, LIPASE, ADDONUAPLUS ####[facility] [address] MCH Auto (RBC) [Entitic mass ]Ordered By: Myron Sullivan on 05-22-2022 MCH (RBC) [Entitic mass] 29.7 pg 24.7-34.3 [facility] MCHC Auto (RBC) [Mass/Vol]Or dered By: Myron Sullivan on 05-22-2022 MCHC (RBC) [Mass/Vol] 33.8 g/dL 32.0-35.0 [facility] MCV Auto (RBC) [Entitic vol] Ordered By: Myron Sullivan on 05-22-2022 MCV (RBC) [Entitic vol] 87.8 fL 80-100 [facility] Nitrite Test strip Ql (U)Ord ered By: Myron Sullivan on 05-22-2022 Nitrite Ql (U) Negative Negative [facility] No Panel InformationOrdered By: Myron Sullivan on 05-22-2022 Estimated GFR () > 60 mL/Min [facility] Comment on above: GFR estimated refere nce range: According to KDOQI guidelines, <60 ml/min/1.73m2 is sufficient to diagnose a patient with chronic kidney disease. Pharmacy Creatinine Clearance (Chem N/A [facility] No Panel InformationOrdered By: Brady Shaikh on 05-22-2022 SARS Antigen (LFIA) [facility] Platelet mean volume Auto (B ld) [Entitic vol]Ordered By: Myron Sullivan on 05-22-2022 Platelet mean volume (Bld) [Entitic vol] 6.9 fL 6.3-10.7 [facility] Platelets Auto (Bld) [#/Vol] Ordered By: Myron Sullivan on 05-22-2022 Platelets (Bld) [#/Vol] 576 10*3/uL 150-450 [facility] Protein Auto test strip (U) [Mass/Vol]Ordered By: Myron Sullivan on 05-22-2022 Protein (U) [Mass/Vol] Negative Negative [facility] Protein [Mass/volume] in Ser um or PlasmaOrdered By: Myron Sullivan on 05-22-2022 Protein [Mass/Vol] 6.5 g/dL 6.1-7.9 [facility] RBC Auto (Bld) [#/Vol]Ordere d By: Myron Sullivan on 05-22-2022 RBC (Bld) [#/Vol] 3.43 10*6/uL 3.60-5.00 [facility] Serum or plasma alanine kramer otransferase measurement without P-5'-P (enzymatic activiOrdered By: Myron Sullivan on 05-22-2022 ALT No additional P-5'-P [Catalytic activity/Vol] 22 U/L 10-60 [facility] Serum or plasma albumin/glob ulin mass ratioOrdered By: Myron Sullivan on 05-22-2022 Albumin/Globulin [Mass ratio] 1.0 {ratio} [facility] Serum or plasma alkaline rui sphatase measurement (enzymatic activity/volume)Ordered By: Myron Sullivan on 05-22-2022 ALP [Catalytic activity/Vol] 44 U/L 32-92 [facility] Serum or plasma aspartate am inotransferase measurement (enzymatic activity/volume)Ordered By: Myron Sullivan on 05-22-2022 AST [Catalytic activity/Vol] 19 U/L 10-42 [facility] Serum or plasma calcium pio urement (mass/volume)Ordered By: Myron Sullivan on 05-22-2022 Calcium [Mass/Vol] 9.2 mg/dL 8.2-10.2 [facility] Serum or plasma chloride mary surement (moles/volume)Ordered By: Myron Sullivan on 05-22-2022 Chloride [Moles/Vol] 104 mmol/L 95-114 [facility] Serum or plasma glucose pio urement (mass/volume)Ordered By: Myron Sullivan on 05-22-2022 Glucose [Mass/Vol] 104 mg/dL 70-100 [facility] Comment on above: ADA recommended refe rence range Random Glucose Reference Range is dependent on time and content of last meal. Glucose of more than 200 mg/dL in a nonstressed, ambulatory subject supports the diagnosis of Diabetes Mellitus. Serum or plasma potassium me asurement (moles/volume)Ordered By: Myron Sullivan on 05-22-2022 Potassium [Moles/Vol] 3.7 mmol/L 3.5-5.1 [facility] Serum or plasma sodium measu rement (moles/volume)Ordered By: Myron Sullivan on 05-22-2022 Sodium [Moles/Vol] 136 mmol/L 136-146 [facility] Serum or plasma total biliru bin measurement (mass/volume)Ordered By: Myron Sullivan on 05-22-2022 Bilirubin [Mass/Vol] 0.6 mg/dL 0.3-1.2 [facility] Serum or plasma total carbon dioxide measurement (moles/volume)Ordered By: Myron Sullivan on 05-22-2022 CO2 [Moles/Vol] 23.0 mmol/L 22.0-30.0 [facility] Serum or plasma urea nitroge n measurement (mass/volume)Ordered By: Myron Sullivan on 05-22-2022 Urea nitrogen [Mass/Vol] 10 mg/dL 9-23 [facility] Janine Ag Negativeon 05-22-20 22 Janine Ag Negative Negative Normal Negative [facility] Comment on above: Result Comment: This is a duplicate Janine SARS Antigen (SHAQ) result to be used for statistical tracking purpose only. PERFORMED BY: [facility] [address] [place] [address] PATHOLOGIST [employer] SCARLETT MARIN M.D. Performed By: #### C OVID-19 JANINE, SOFIANEG ####[facility] [address] [place] [address] [facility] Specific gravity Auto test s trip (U) [Rel density]Ordered By: Myron Sullivan on 05-22-2022 Specific gravity (U) [Rel density] 1.016 1.001-1.030 [facility] Squamous epithelial cells de tection in urine sediment by light microscopyOrdered By: Myron Sullivan on 05-22-2022 Epithelial cells.squamous LM Ql (Urine sed) 5-9 [HPF] 0-2 [facility] Urine bacteria detection by automated methodOrdered By: Myron Sullivan on 05-22-2022 Bacteria Auto Ql (U) None seen None Seen [facility] Urine clarity by refractomet ry automatedOrdered By: Myron Sullivan on 05-22-2022 Clarity Refractometry automated (U) Clear Clear [facility] Urine glucose measurement by automated test strip (mass/volume)Ordered By: Myron Sullivan on 05-22-2022 Glucose Auto test strip (U) [Mass/Vol] Normal mg/dL Normal [facility] Urine hemoglobin detection b y automated test stripOrdered By: Myron Sullivan on 05-22-2022 Hemoglobin Auto test strip Ql (U) 2+ Negative [facility] Urine lactic acid measuremen tOrdered By: Brady Shaikh on 05-22-2022 Lactate (U) [Moles/Vol] 0.7 mmol/L 0.5-2.2 [facility] Urine leukocyte esterase det ection by automated test stripOrdered By: Myron Sullivan on 05-22-2022 Leukocyte esterase Auto test strip Ql (U) Negative Negative [facility] Urobilinogen Auto test strip (U) [Mass/Vol]Ordered By: Myron Sullivan on 05-22-2022 Urobilinogen (U) [Mass/Vol] Normal mg/dL Normal [facility] WBC Auto (Bld) [#/Vol]Ordere d By: Myron Sullivan on 05-22-2022 WBC (Bld) [#/Vol] 14.4 10*3/uL 3.8-11.6 [facility] pH Auto test strip (U)Ordere d By: Myron Sullivan on 05-22-2022 pH (U) 5.5 [pH] 5.0-9.0 [facility] Albumin [Mass/volume] in Ser um or PlasmaOrdered By: PRATEEK HICKS on 05-15-2022 Albumin [Mass/Vol] 3.0 g/dL 3.2-5.5 [facility] Basophils Auto (Bld) [#/Vol] Ordered By: PRATEEK HICKS on 05-15-2022 Basophils (Bld) [#/Vol] 0.1 10*3/uL 0.0-0.2 [facility] Basophils/100 WBC Auto (Bld) Ordered By: PRATEEK HICKS on 05-15-2022 Basophils/100 WBC (Bld) 0.5 % . [facility] Blood hemoglobin measurement (mass/volume)Ordered By: PRATEEK HICKS on 05-15-2022 Hemoglobin (Bld) [Mass/Vol] 9.2 g/dL 11.8-15.4 [facility] Blood leukocytes automated c ount (number/volume)Ordered By: PRATEEK HICKS on 05-15-2022 WBC (Bld) [#/Vol] 11.2 10*3/uL 4.5-11.0 [facility] Complete Blood Count Auto Di ffon 05-15-2022 Basophils (Bld) [#/Vol] 0.1 10*3/uL Normal 0.0-0.2 [facility] Comment on above: Result Comment: PERF ORMED BY: [facility] [address] [place] [address] PATHOLOGIST [employer] SCARLETT MARIN M.D. Performed By: #### C BC, CMP ####[place] [id number] [facility] Basophils/100 WBC (Bld) 0.5 % Normal . [facility] Comment on above: Performed By: #### C BC, CMP ####[place] [id number] [place] [phone] [facility] Eosinophils (Bld) [#/Vol] 0.4 10*3/uL Normal 0.0-0.45 [facility] Comment on above: Performed By: #### C BC, CMP ####[place] [id number] [place] [phone] [facility] Eosinophils/100 WBC (Bld) 3.7 % Normal . [facility] Comment on above: Performed By: #### C BC, CMP ####[address] [address] [facility] Erythrocyte distribution width (RBC) [Ratio] 13.2 % Normal 11.9-15.3 [facility] Comment on above: Performed By: #### C BC, CMP ####[address] [address] [facility] Hematocrit (Bld) [Volume fraction] 27.1 % Low 34.0-46.4 [facility] Comment on above: Performed By: #### C BC, CMP ####[address] [address] [facility] Hemoglobin (Bld) [Mass/Vol] 9.2 g/dL Low 11.8-15.4 [facility] Comment on above: Performed By: #### C BC, CMP ####[place] [id number] [facility] Lymphocytes (Bld) [#/Vol] 2.3 10*3/uL Normal 1.00-4.8 [facility] Comment on above: Performed By: #### C JOSE JUAN, CMP ####[place] [id number] [facility] Lymphocytes/100 WBC (Bld) 20.4 % Normal . [facility] Comment on above: Performed By: #### C BC, CMP ####[address] [address] [facility] MCH (RBC) [Entitic mass] 30.2 pg Normal 24.7-34.3 [facility] Comment on above: Performed By: #### C BC, CMP ####[address] [address] [facility] MCV (RBC) [Entitic vol] 89.2 fL Normal 80-100 [facility] Comment on above: Performed By: #### C BC, CMP ####[place] [phone] [facility] Mean Corpuscular HGB Conc 33.9 g/dL Normal 32.0-35.0 [facility] Comment on above: Performed By: #### C JOSE JUAN, CMP ####[facility] [place] [address] [place] Monocytes (Bld) [#/Vol] 0.7 10*3/uL Normal 0.0-0.8 [facility] Comment on above: Performed By: #### C BC, CMP ####[place] [address] [place] [address] [place] Monocytes/100 WBC (Bld) 6.2 % Normal . [facility] Comment on above: Performed By: #### C JOSE JUAN, CMP ####[place] [address] [place] [address] [place] Neutrophils (Bld) [#/Vol] 7.7 10*3/uL Normal 1.8-7.7 [facility] Comment on above: Performed By: #### C JOSE JUAN, CMP ####[address] [address] [facility] Neutrophils/100 WBC (Bld) 69.2 % Normal . [facility] Comment on above: Performed By: #### C JOSE JUAN, CMP ####[address] [address] [place] Nucleated RBC/100 WBC (Bld) [Ratio] 0.0 % Normal 0-0.5 [facility] Comment on above: Performed By: #### C JOSE JUAN, CMP ####[place] [address] [place] [address] [place] Platelet mean volume (Bld) [Entitic vol] 7.2 fL Normal 6.3-10.7 [facility] Comment on above: Performed By: #### C JOSE JUAN, CMP ####[place] [address] [place] [address] [place] Platelets (Bld) [#/Vol] 371 10*3/uL Normal 150-450 [facility] Comment on above: Performed By: #### C BC, CMP ####[place] [address] [place] [address] [place] RBC (Bld) [#/Vol] 3.04 10*6/uL Low 3.60-5.00 [facility] Comment on above: Performed By: #### C BC, CMP ####[address] [address] [facility] WBC (Bld) [#/Vol] 11.2 10*3/uL High 4.5-11.0 [facility] Comment on above: Performed By: #### C BC, CMP ####[address] [address] [facility] Comprehensive Metabolic Pane skyler 05-15-2022 Albumin [Mass/Vol] 3.0 g/dL Low 3.2-5.5 [facility] Comment on above: Performed By: #### C JOSE JUAN, CMP ####[address] [address] [facility] Albumin/Globulin [Mass ratio] 1.1 {ratio} Normal [facility] Comment on above: Performed By: #### C JOSE JUAN, CMP ####[address] [address] [facility] ALP [Catalytic activity/Vol] 30 U/L Low 32-92 [facility] Comment on above: Performed By: #### C JOSE JUAN, CMP ####[address] [address] [facility] ALT [Catalytic activity/Vol] 16 U/L Normal 10-60 [facility] Comment on above: Performed By: #### C JOSE JUAN, CMP ####[address] [address] [facility] AST [Catalytic activity/Vol] 17 U/L Normal 10-42 [facility] Comment on above: Performed By: #### C BC, CMP ####[address] [address] [facility] Bilirubin [Mass/Vol] 0.7 mg/dL Normal 0.3-1.2 [facility] Comment on above: Performed By: #### C BC, CMP ####[address] [address] [facility] Calcium [Mass/Vol] 8.5 mg/dL Normal 8.2-10.2 [facility] Comment on above: Performed By: #### C BC, CMP ####[place] [address] [place] [address] [facility] Chloride [Moles/Vol] 105 mmol/L Normal 95-114 [facility] Comment on above: Performed By: #### C BC, CMP ####[place] [address] [place] [address] [facility] CO2 [Moles/Vol] 25.8 mmol/L Normal 22.0-30.0 [facility] Comment on above: Performed By: #### C BC, CMP ####[place] [address] [place] [address] [facility] Creatinine [Mass/Vol] 0.46 mg/dL Normal 0.44-1.03 [facility] Comment on above: Performed By: #### C BC, CMP ####[place] [phone] [facility] Creatinine Clr Calc Pharmacy 159.66 [facility] Comment on above: Result Comment: PERF ORMED BY: [facility] [address] [place] [address] PATHOLOGIST [employer] SCRALETT MARIN M.D. Performed By: #### C BC, CMP ####[place] [phone] [facility] Estimated GFR ( Padmini > 60 [facility] Comment on above: Result Comment: GFR estimated reference range: According to KDOQI guidelines, <60 ml/min/1.73m2 is sufficient to diagnose a patient with chronic kidney disease. Performed By: #### C BC, CMP ####[address] [address] [facility] Estimated GFR (Non- Am > 60 [facility] Comment on above: Performed By: #### C BC, CMP ####[place] [id number] [facility] Globulin (S) [Mass/Vol] 2.7 g/dL [facility] Comment on above: Performed By: #### C BC, CMP ####[place] [id number] [facility] Glucose [Mass/Vol] 91 mg/dL Normal 70-100 [facility] Comment on above: Result Comment: [place] Glucose Reference Range is dependent on time and content of last meal. Glucose of more than 200 mg/dL in a nonstressed, ambulatory subject supports the diagnosis of Diabetes Mellitus. ADA recommended reference range Performed By: #### C BC, CMP ####[place] [phone] [facility] Potassium [Moles/Vol] 3.4 mmol/L Low 3.5-5.1 [facility] Comment on above: Performed By: #### C BC, CMP ####[address] Protein [Mass/Vol] 5.7 g/dL Low 6.1-7.9 [facility] Comment on above: Performed By: #### C BC, CMP ####[place] [id number] [facility] Sodium [Moles/Vol] 137 mmol/L Normal 136-146 [facility] Comment on above: Performed By: #### C BC, CMP ####[place] [phone] [facility] Urea nitrogen [Mass/Vol] 6 mg/dL Low 9-23 [facility] Comment on above: Performed By: #### C BC, CMP ####[address] Creatinine and Glomerular fi ltration rate.predicted panel (S/P/Bld)Ordered By: PRATEEK HICKS on 05-15-2022 Creatinine [Mass/Vol] 0.46 mg/dL 0.44-1.03 [facility] Eosinophils Auto (Bld) [#/Vo l]Ordered By: PRATEEK HICKS on 05-15-2022 Eosinophils (Bld) [#/Vol] 0.4 10*3/uL 0.0-0.45 [facility] Eosinophils/100 WBC Auto (Bl d)Ordered By: PRATEEK HICKS on 07-13-2022 Eosinophils/100 WBC (Bld) 3.7 % . [facility] Erythrocyte distribution wid th Auto (RBC) [Ratio]Ordered By: PRATEEK HICKS on 05-15-2022 Erythrocyte distribution width (RBC) [Ratio] 13.2 % 11.9-15.3 [facility] Estimated glomerular filtrat ion rate (GFR) non- AmericanOrdered By: PRATEEK HICKS on 05-15-2022 GFR/1.73 sq M.predicted among non-blacks MDRD (S/P/Bld) [Vol rate/Area] > 60 mL/Min [facility] Globulin Calc (S) [Mass/Vol] Ordered By: PRATEEK HICKS on 05-15-2022 Globulin (S) [Mass/Vol] 2.7 g/dL [facility] Hematocrit Auto (Bld) [Volum e fraction]Ordered By: PRATEEK HICKS on 05-15-2022 Hematocrit (Bld) [Volume fraction] 27.1 % 34.0-46.4 [facility] Laboratory - Hematology and Cell countsOrdered By: PRATEEK HICKS on 05-15-2022 Nucleated RBC/100 WBC (Bld) [Ratio] 0.0 % 0-0.5 [facility] Lymphocytes Auto (Bld) [#/Vo l]Ordered By: PRATEEK HICKS on 05-15-2022 Lymphocytes (Bld) [#/Vol] 2.3 10*3/uL 1.00-4.8 [facility] Lymphocytes/100 WBC Auto (Bl d)Ordered By: PRATEEK HICKS on 05-15-2022 Lymphocytes/100 WBC (Bld) 20.4 % . [facility] MCH Auto (RBC) [Entitic mass ]Ordered By: PRATEEK HICKS on 05-15-2022 MCH (RBC) [Entitic mass] 30.2 pg 24.7-34.3 [facility] MCHC Auto (RBC) [Mass/Vol]Or dered By: PRATEEK HICKS on 05-15-2022 MCHC (RBC) [Mass/Vol] 33.9 g/dL 32.0-35.0 [facility] MCV Auto (RBC) [Entitic vol] Ordered By: PRATEEK HICKS on 05-15-2022 MCV (RBC) [Entitic vol] 89.2 fL 80-100 [facility] Monocytes Auto (Bld) [#/Vol] Ordered By: PRATEEK HICKS on 05-15-2022 Monocytes (Bld) [#/Vol] 0.7 10*3/uL 0.0-0.8 [facility] Monocytes/100 WBC Auto (Bld) Ordered By: PRATEEK HICKS on 05-15-2022 Monocytes/100 WBC (Bld) 6.2 % . [facility] Neutrophils Auto (Bld) [#/Vo l]Ordered By: PRATEEK HICKS on 05-15-2022 Neutrophils (Bld) [#/Vol] 7.7 10*3/uL 1.8-7.7 [facility] Neutrophils/100 WBC Auto (Bl d)Ordered By: PRATEEK HICKS on 05-15-2022 Neutrophils/100 WBC (Bld) 69.2 % . [facility] No Panel InformationOrdered By: PRATEEK HICKS on 05-15-2022 Estimated GFR () > 60 mL/Min [facility] Comment on above: GFR estimated refere nce range: According to KDOQI guidelines, <60 ml/min/1.73m2 is sufficient to diagnose a patient with chronic kidney disease. Pharmacy Creatinine Clearance (Chem 159.66 [facility] Platelet mean volume Auto (B ld) [Entitic vol]Ordered By: PRATEEK HICKS on 05-15-2022 Platelet mean volume (Bld) [Entitic vol] 7.2 fL 6.3-10.7 [facility] Platelets Auto (Bld) [#/Vol] Ordered By: PRATEEK HICKS on 05-15-2022 Platelets (Bld) [#/Vol] 371 10*3/uL 150-450 [facility] Protein [Mass/volume] in Ser um or PlasmaOrdered By: PRATEEK HICKS on 05-15-2022 Protein [Mass/Vol] 5.7 g/dL 6.1-7.9 [facility] RBC Auto (Bld) [#/Vol]Ordere d By: PRATEEK HICKS on 05-15-2022 RBC (Bld) [#/Vol] 3.04 10*6/uL 3.60-5.00 [facility] Serum or plasma alanine kramer otransferase measurement without P-5'-P (enzymatic activiOrdered By: PRATEEK HICKS on 05-15-2022 ALT No additional P-5'-P [Catalytic activity/Vol] 16 U/L 10-60 [facility] Serum or plasma albumin/glob ulin mass ratioOrdered By: PRATEEK HICKS on 05-15-2022 Albumin/Globulin [Mass ratio] 1.1 {ratio} [facility] Serum or plasma alkaline rui sphatase measurement (enzymatic activity/volume)Ordered By: PRATEEK HICKS on 05-15-2022 ALP [Catalytic activity/Vol] 30 U/L 32-92 [facility] Serum or plasma aspartate am inotransferase measurement (enzymatic activity/volume)Ordered By: PRATEEK HICKS on 05-15-2022 AST [Catalytic activity/Vol] 17 U/L 10-42 [facility] Serum or plasma calcium pio urement (mass/volume)Ordered By: PRATEEK HICKS on 05-15-2022 Calcium [Mass/Vol] 8.5 mg/dL 8.2-10.2 [facility] Serum or plasma chloride mary surement (moles/volume)Ordered By: PRATEEK HICKS on 05-15-2022 Chloride [Moles/Vol] 105 mmol/L 95-114 [facility] Serum or plasma glucose pio urement (mass/volume)Ordered By: PRATEEK HICKS on 05-15-2022 Glucose [Mass/Vol] 91 mg/dL 70-100 [facility] Comment on above: ADA recommended refe rence range Random Glucose Reference Range is dependent on time and content of last meal. Glucose of more than 200 mg/dL in a nonstressed, ambulatory subject supports the diagnosis of Diabetes Mellitus. Serum or plasma potassium me asurement (moles/volume)Ordered By: PRATEEK HICKS on 05-15-2022 Potassium [Moles/Vol] 3.4 mmol/L 3.5-5.1 [facility] Serum or plasma sodium measu rement (moles/volume)Ordered By: PRATEEK HICKS on 05-15-2022 Sodium [Moles/Vol] 137 mmol/L 136-146 [facility] Serum or plasma total biliru bin measurement (mass/volume)Ordered By: PRATEEK HICKS on 05-15-2022 Bilirubin [Mass/Vol] 0.7 mg/dL 0.3-1.2 [facility] Serum or plasma total carbon dioxide measurement (moles/volume)Ordered By: PRATEEK HICKS on 05-15-2022 CO2 [Moles/Vol] 25.8 mmol/L 22.0-30.0 [facility] Serum or plasma urea nitroge n measurement (mass/volume)Ordered By: PRATEEK HICKS on 05-15-2022 Urea nitrogen [Mass/Vol] 6 mg/dL 9- [facility] XR acute abdomen serieson XR acute abdomen series [place] [address] XRay Report Signed Patient: Tootie Nicole MR#: [id number] 0 : 1975 Acct:[id number] Age/Sex: 46 / F ADM Date: 05/13/22 Loc: Room: [address] [place] [address] Type: ADM IN Attending Dr: Prateek Hicks [...] Yajaira Goodson M.D.05/15/2022 8:27 AM Dictation Location: [place] [address] Transcribed By: [facility] 05/15/22 0827 Dictated By: Yajaira Goodson II, MD 05/15/22821 Signed By: 05/15/22826 Normal [facility] Complete Blood Count Auto Di ffon 05-14-2022 Basophils (Bld) [#/Vol] 0.0 10*3/uL Normal 0.0-0.2 [facility] Comment on above: Result Comment: PERF ORMED BY: [facility] [address] [place] [address] PATHOLOGIST [employer] SCARLETT MARIN M.D. Performed By: #### C BC ####[place] [id number] [facility] Basophils/100 WBC (Bld) 0.3 % Normal . [facility] Comment on above: Performed By: #### C BC ####[place] [id number] [facility] Eosinophils (Bld) [#/Vol] 0.0 10*3/uL Normal 0.0-0.45 [facility] Comment on above: Performed By: #### C BC ####[place] [id number] [facility] Eosinophils/100 WBC (Bld) 0.3 % Normal . [facility] Comment on above: Performed By: #### C BC ####[place] [id number] [facility] Erythrocyte distribution width (RBC) [Ratio] 12.9 % Normal 11.9-15.3 [facility] Comment on above: Performed By: #### C BC ####[place] [id number] [facility] Hematocrit (Bld) [Volume fraction] 30.0 % Low 34.0-46.4 [facility] Comment on above: Performed By: #### C BC ####[place] [id number] [facility] Hemoglobin (Bld) [Mass/Vol] 9.8 g/dL Low 11.8-15.4 [facility] Comment on above: Performed By: #### C BC ####[place] [id number] [facility] Lymphocytes (Bld) [#/Vol] 1.9 10*3/uL Normal 1.00-4.8 [facility] Comment on above: Performed By: #### C BC ####[address] Lymphocytes/100 WBC (Bld) 13.6 % Normal . [facility] Comment on above: Performed By: #### C BC ####[address] MCH (RBC) [Entitic mass] 29.3 pg Normal 24.7-34.3 [facility] Comment on above: Performed By: #### C BC ####[address] MCV (RBC) [Entitic vol] 89.3 fL Normal 80-100 [facility] Comment on above: Performed By: #### C BC ####[address] Mean Corpuscular HGB Conc 32.8 g/dL Normal 32.0-35.0 [facility] Comment on above: Performed By: #### C BC ####[address] Monocytes (Bld) [#/Vol] 0.9 10*3/uL High 0.0-0.8 [facility] Comment on above: Performed By: #### C BC ####[address] Monocytes/100 WBC (Bld) 6.3 % Normal . [facility] Comment on above: Performed By: #### C BC ####[address] Neutrophils (Bld) [#/Vol] 11.2 10*3/uL High 1.8-7.7 [facility] Comment on above: Performed By: #### C BC ####[address] Neutrophils/100 WBC (Bld) 79.5 % Normal . [facility] Comment on above: Performed By: #### C BC ####[place] [id number] [place] [id number] [facility] Nucleated RBC/100 WBC (Bld) [Ratio] 0.1 % Normal 0-0.5 [facility] Comment on above: Performed By: #### C BC ####[place] [id number] [facility] Platelet mean volume (Bld) [Entitic vol] 7.5 fL Normal 6.3-10.7 [facility] Comment on above: Performed By: #### C BC ####[place] [id number] [facility] Platelets (Bld) [#/Vol] 366 10*3/uL Normal 150-450 [facility] Comment on above: Performed By: #### C BC ####[place] [id number] [facility] RBC (Bld) [#/Vol] 3.36 10*6/uL Low 3.60-5.00 [facility] Comment on above: Performed By: #### C BC ####[place] [id number] [facility] WBC (Bld) [#/Vol] 14.1 10*3/uL High 4.5-11.0 [facility] Comment on above: Performed By: #### C BC ####[place] [id number] [facility] HCG ( test) IA.rapi d Ql (U)Ordered By: VARUN ZABALA on 05-13-2022 HCG ( test) Ql (U) Negative [facility] HCG,Urineon 05-13-2022 Beta HCG ( test) Ql (U) Negative Normal [facility] Comment on above: Result Comment: PERF ORMED BY: [facility] [address] [place] [address] PATHOLOGIST [employer] SCARLETT MARIN M.D. Performed By: #### U HCG #### [facility] [address] [place] [address] [facility] 05-13-2022 L Specimen: [id number] Received: 05/13/22 Status: TIA Ricketts Num: [id number] Spec Type: Surgical Subm Dr: PRATEEK HICKS MD Tissues: A Uterus w/ or w/o tubes ovaries except neoplastic or prolap (CERVIX, ISABEL TU Procedures: HE Stain/7, Gross/Micro L5 Patient Age/Sex Location Account Attending Physician Tootie Nicole 46/F 3S [id number] PRATEEK HICKS MD SPEC NUM: [id number] RECD: 05/13/22 STATUS: TIA RICKETTS NUM: [id number] ANGELES: 05/13/22 DR: PRATEEK HICKS MD ENTERED: 05/13/[address] [facility] [address]: BAKARI TYPE: Surgical DEPT: S ORDERED: HE Stain/7, Gross/Micro L5 ORDERED: HE Stain/7, Gross/Micro L5 Pathological Diagnosis Uterus, cervix, bilateral fallopian tubes and ovaries, total hysterectomy and bilateral salpingo-oophorecto my: - Proliferative pattern endometrium. - Myometrium with [...] has a rubbery, ann-peacock, focally hemorrhagic Specimen: [id number] Received: 05/13/22 Status: TIA Ricketts Num: [id number] Spec Type: Surgical Subm Dr: PRATEEK HICKS MD Tissues: A Uterus w/ or w/o tubes ovaries except neoplastic or prolap (CERVIX, ISABEL TU Procedures: HE Stain/7, Gross/Micro L5 Patient: Tootie Nicole [id number] (Continued) Specimen: Received: 05/13/22 (Continued) Gross Description (Continued) Signed (signatur e on file) Adry Vieyra MD 05/14/22 1528 Specimen: Received: 05/13/22 Status: TIA Ricketts Num: [id number] Spec Type: Surgical Subm Dr: PRATEEK HICKS MD Tissues: A Uterus w/ or w/o tubes ovaries except neoplastic or prolap (CERVIX, ISABEL TU Procedures: HE Stain/7, Gross/Micro L5 Patient: Tootie Nicole [id number] (Continued) Specimen: [id number] Received: 05/13/22 (Continued) Gross Description (Continued) cut [...] There is a pinpoint lumen on cut section.[facility] nas sections are submitted in 7 cassettes as follows: A1-A2 - Cervix A3 - Anterior endomyometrium A4 - Posterior endomyometrium A5 - Serosal adhesions A6 - Right ovary and fallopian tube A7 - Left ovary and fallopian tube (LG/) Microscopic Description Seven glass slides with H E stained material have been examined. The microscopic findings support the above pathologic diagnosis. CPT Codes 40574 (more content not included)... Normal [facility] SARS-CoV-2 (COVID-19) RNA KATE+probe Ql (Unsp spec) Negative Normal Negative [facility] Comment on above: Order Comment: Healt hcare Worker?: Y Result Comment: Testing for SARS-CoV-2 by RT-PCR This test was developed and its performance characteristics determined by [employer]) and validated at the [facility]. This test has not been FDA cleared [...] is terminated or revoked sooner. PERFORMED BY: [place] [address] PATHOLOGIST [employer] SCARLETT MARIN M.D. Performed By: #### C OVID 19 [facility] #### [address] COVID-19 Positive/NegativeOr dered By: Gaurav Marr on 05-09-2022 SARS-CoV-2 (COVID-19) N gene KATE+probe Ql (Resp) Negative Negative [facility] Comment on above: Testing for SARS-CoV -2 by RT-PCR This test was developed and its performance characteristics determined by [employer] ([employer]) and validated at the [facility]. This test has not been FDA cleared [...] terminated or revoked sooner. Basic Metabolic Panelon - Calcium [Mass/Vol] 9.4 mg/dL Normal 8.2-10.2 [facility] Comment on above: Result Comment: PERF ORMED BY: [place] [address] PATHOLOGIST [employer] SCARLETT MARIN M.D. Performed By: #### C BC, BMP #### [address] Chloride [Moles/Vol] 101 mmol/L Normal 95-114 [facility] Comment on above: Performed By: #### C BC, BMP #### [address] CO2 [Moles/Vol] 25.4 mmol/L Normal 22.0-30.0 [facility] Comment on above: Performed By: #### C BC, BMP #### [address] Creatinine [Mass/Vol] 0.57 mg/dL Normal 0.44-1.03 [facility] Comment on above: Performed By: #### C BC, BMP #### [place] [address] [place] Estimated GFR ( Padmini > 60 Normal [facility] Comment on above: Result Comment: GFR estimated reference range: According to KDOQI guidelines, <60 ml/min/1.73m2 is sufficient to diagnose a patient with chronic kidney disease. Performed By: #### C BC, BMP #### [place] [id number] [place] Estimated GFR (Non- Am > 60 Normal [facility] Comment on above: Performed By: #### C BC, BMP #### [facility] [address] Glucose [Mass/Vol] 89 mg/dL Normal 70-100 [facility] Comment on above: Result Comment: [place] Glucose Reference Range is dependent on time and content of last meal. Glucose of more than 200 mg/dL in a nonstressed, ambulatory subject supports the diagnosis of Diabetes Mellitus. ADA recommended reference range Performed By: #### C BC, BMP #### [facility] [address] Potassium [Moles/Vol] 4.2 mmol/L Normal 3.5-5.1 [facility] Comment on above: Performed By: #### C BC, BMP #### [facility] [address] Sodium [Moles/Vol] 135 mmol/L Low 136-146 [facility] Comment on above: Performed By: #### C BC, BMP #### [facility] [address] Urea nitrogen [Mass/Vol] 9 mg/dL Normal 9-23 [facility] Comment on above: Performed By: #### C BC, BMP #### [facility] [address] Basophils Auto (Bld) [#/Vol] Ordered By: PRATEEK HICKS on 04-29-2022 Basophils (Bld) [#/Vol] 0.1 10*3/uL 0.0-0.2 [facility] Basophils/100 WBC Auto (Bld) Ordered By: PRATEEK HICKS on 04-29-2022 Basophils/100 WBC (Bld) 0.8 % . [facility] Blood hemoglobin measurement (mass/volume)Ordered By: PRATEEK HICKS on 04-29-2022 Hemoglobin (Bld) [Mass/Vol] 13.2 g/dL 11.8-15.4 [facility] Blood leukocytes automated c ount (number/volume)Ordered By: PRATEEK HICKS on 04-29-2022 WBC (Bld) [#/Vol] 8.9 10*3/uL 4.5-11.0 [facility] Complete Blood Count Auto Di ffon 04-29-2022 Basophils (Bld) [#/Vol] 0.1 10*3/uL Normal 0.0-0.2 [facility] Comment on above: Result Comment: PERF ORMED BY: [place] [address] PATHOLOGIST [employer] SCARLETT MARIN M.D. Performed By: #### C BC, BMP #### [place] [address] [place] Basophils/100 WBC (Bld) 0.8 % Normal . [facility] Comment on above: Performed By: #### C BC, BMP #### [place] [address] [place] Eosinophils (Bld) [#/Vol] 0.3 10*3/uL Normal 0.0-0.45 [facility] Comment on above: Performed By: #### C BC, BMP #### [place] [address] [place] Eosinophils/100 WBC (Bld) 3.3 % Normal . [facility] Comment on above: Performed By: #### C BC, BMP #### [facility] [address] [place] [address] [place] Erythrocyte distribution width (RBC) [Ratio] 13.5 % Normal 11.9-15.3 [facility] Comment on above: Performed By: #### C BC, BMP #### [facility] [address] [place] [address] [place] Hematocrit (Bld) [Volume fraction] 38.9 % Normal 34.0-46.4 [facility] Comment on above: Performed By: #### C BC, BMP #### [address] Hemoglobin (Bld) [Mass/Vol] 13.2 g/dL Normal 11.8-15.4 [facility] Comment on above: Performed By: #### C BC, BMP #### [facility] [address] [place] [address] [place] Lymphocytes (Bld) [#/Vol] 2.0 10*3/uL Normal 1.00-4.8 [facility] Comment on above: Performed By: #### C BC, BMP #### [facility] [address] Lymphocytes/100 WBC (Bld) 22.7 % Normal . [facility] Comment on above: Performed By: #### C BC, BMP #### [facility] [address] MCH (RBC) [Entitic mass] 29.6 pg Normal 24.7-34.3 [facility] Comment on above: Performed By: #### C BC, BMP #### [address] MCV (RBC) [Entitic vol] 87.7 fL Normal 80-100 [facility] Comment on above: Performed By: #### C BC, BMP #### [address] Mean Corpuscular HGB Conc 33.8 g/dL Normal 32.0-35.0 [facility] Comment on above: Performed By: #### C BC, BMP #### [address] Monocytes (Bld) [#/Vol] 0.5 10*3/uL Normal 0.0-0.8 [facility] Comment on above: Performed By: #### C BC, BMP #### [place] [address] [place] Monocytes/100 WBC (Bld) 5.4 % Normal . [facility] Comment on above: Performed By: #### C BC, BMP #### [address] Neutrophils (Bld) [#/Vol] 6.1 10*3/uL Normal 1.8-7.7 [facility] Comment on above: Performed By: #### C BC, BMP #### [facility] [address] [place] [address] [place] Neutrophils/100 WBC (Bld) 67.8 % Normal . [facility] Comment on above: Performed By: #### C JOSE JUAN, BMP #### [facility] [address] [place] [address] [place] Nucleated RBC/100 WBC (Bld) [Ratio] 0.1 % Normal 0-0.5 [facility] Comment on above: Performed By: #### C JOSE JUAN, BMP #### [facility] [address] Platelet mean volume (Bld) [Entitic vol] 7.6 fL Normal 6.3-10.7 [facility] Comment on above: Performed By: #### C JOSE JUAN, BMP #### [facility] [address] [place] [address] [place] Platelets (Bld) [#/Vol] 353 10*3/uL Normal 150-450 [facility] Comment on above: Performed By: #### C JOSE JUAN, BMP #### [facility] [address] [place] [address] [place] RBC (Bld) [#/Vol] 4.44 10*6/uL Normal 3.60-5.00 [facility] Comment on above: Performed By: #### C JOSE JUAN, BMP #### [place] [address] [place] WBC (Bld) [#/Vol] 8.9 10*3/uL Normal 4.5-11.0 [facility] Comment on above: Performed By: #### C JOSE JUAN, BMP #### [place] [address] [place] Creatinine and Glomerular fi ltration rate.predicted panel (S/P/Bld)Ordered By: PRATEEK HICKS on 04-29-2022 Creatinine [Mass/Vol] 0.57 mg/dL 0.44-1.03 [facility] ECG 12 lead ECGon 04-29-2022 ECG 12 lead ECG [facility] [address] [place] [address] [place] [address] Electrocardiograph Report Signed Patient: Tootie Nicole MR#: [id number] 0 : 1975 Acct:[id number] Age/Sex: 46 / F ADM Date: 04/29/22 Loc: PS Room: Type: [facility] Attending Dr: Prateek Hicks MD Ordering [...] By Romeo Taylor DO 04/29 180 Normal [facility] Eosinophils Auto (Bld) [#/Vo l]Ordered By: PRATEEK HICKS on 04-29-2022 Eosinophils (Bld) [#/Vol] 0.3 10*3/uL 0.0-0.45 [facility] Eosinophils/100 WBC Auto (Bl d)Ordered By: PRATEEK HICKS on 04-29-2022 Eosinophils/100 WBC (Bld) 3.3 % . [facility] Erythrocyte distribution wid th Auto (RBC) [Ratio]Ordered By: PRATEEK HICKS on 04-29-2022 Erythrocyte distribution width (RBC) [Ratio] 13.5 % 11.9-15.3 [facility] Estimated glomerular filtrat ion rate (GFR) non- AmericanOrdered By: PRATEEK HICKS on 04-29-2022 GFR/1.73 sq M.predicted among non-blacks MDRD (S/P/Bld) [Vol rate/Area] > 60 mL/Min [facility] Hematocrit Auto (Bld) [Volum e fraction]Ordered By: PRATEEK HICKS on 04-29-2022 Hematocrit (Bld) [Volume fraction] 38.9 % 34.0-46.4 [facility] Laboratory - Hematology and Cell countsOrdered By: PRATEEK HICKS on 04-29-2022 Nucleated RBC/100 WBC (Bld) [Ratio] 0.1 % 0-0.5 [facility] Lymphocytes Auto (Bld) [#/Vo l]Ordered By: PRATEEK HICKS on 04-29-2022 Lymphocytes (Bld) [#/Vol] 2.0 10*3/uL 1.00-4.8 [facility] Lymphocytes/100 WBC Auto (Bl d)Ordered By: PRATEEK HICKS on 04-29-2022 Lymphocytes/100 WBC (Bld) 22.7 % . [facility] MCH Auto (RBC) [Entitic mass ]Ordered By: PRATEEK HICKS on 04-29-2022 MCH (RBC) [Entitic mass] 29.6 pg 24.7-34.3 [facility] MCHC Auto (RBC) [Mass/Vol]Or dered By: PRATEEK HICKS on 04-29-2022 MCHC (RBC) [Mass/Vol] 33.8 g/dL 32.0-35.0 [facility] MCV Auto (RBC) [Entitic vol] Ordered By: PRATEEK HICKS on 04-29-2022 MCV (RBC) [Entitic vol] 87.7 fL 80-100 [facility] Monocytes Auto (Bld) [#/Vol] Ordered By: PRATEEK HICKS on 04-29-2022 Monocytes (Bld) [#/Vol] 0.5 10*3/uL 0.0-0.8 [facility] Monocytes/100 WBC Auto (Bld) Ordered By: PRATEEK HICKS on 04-29-2022 Monocytes/100 WBC (Bld) 5.4 % . [facility] Neutrophils Auto (Bld) [#/Vo l]Ordered By: PRATEEK HICKS on 04-29-2022 Neutrophils (Bld) [#/Vol] 6.1 10*3/uL 1.8-7.7 [facility] Neutrophils/100 WBC Auto (Bl d)Ordered By: PRATEEK HICKS on 04-29-2022 Neutrophils/100 WBC (Bld) 67.8 % . [facility] No Panel InformationOrdered By: PRATEEK HICKS on 04-29-2022 Estimated GFR () > 60 mL/Min [facility] Comment on above: GFR estimated refere nce range: According to KDOQI guidelines, <60 ml/min/1.73m2 is sufficient to diagnose a patient with chronic kidney disease. Pharmacy Creatinine Clearance (Chem N/A [facility] Platelet mean volume Auto (B ld) [Entitic vol]Ordered By: PRATEEK HICKS on 04-29-2022 Platelet mean volume (Bld) [Entitic vol] 7.6 fL 6.3-10.7 [facility] Platelets Auto (Bld) [#/Vol] Ordered By: PRATEEK HICKS on 04-29-2022 Platelets (Bld) [#/Vol] 353 10*3/uL 150-450 [facility] RBC Auto (Bld) [#/Vol]Ordere d By: PRATEEK HICKS on 04-29-2022 RBC (Bld) [#/Vol] 4.44 10*6/uL 3.60-5.00 [facility] Serum or plasma calcium pio urement (mass/volume)Ordered By: PRATEEK HICKS on 04-29-2022 Calcium [Mass/Vol] 9.4 mg/dL 8.2-10.2 [facility] Serum or plasma chloride mary surement (moles/volume)Ordered By: PRATEEK HICKS on 04-29-2022 Chloride [Moles/Vol] 101 mmol/L 95-114 [facility] Serum or plasma glucose pio urement (mass/volume)Ordered By: PRATEEK HICKS on 04-29-2022 Glucose [Mass/Vol] 89 mg/dL 70-100 [facility] Comment on above: ADA recommended refe rence range Random Glucose Reference Range is dependent on time and content of last meal. Glucose of more than 200 mg/dL in a nonstressed, ambulatory subject supports the diagnosis of Diabetes Mellitus. Serum or plasma potassium me asurement (moles/volume)Ordered By: PRATEEK HICKS on 04-29-2022 Potassium [Moles/Vol] 4.2 mmol/L 3.5-5.1 [facility] Serum or plasma sodium measu rement (moles/volume)Ordered By: PRATEEK HICKS on 04-29-2022 Sodium [Moles/Vol] 135 mmol/L 136-146 [facility] Serum or plasma total carbon dioxide measurement (moles/volume)Ordered By: PRATEEK HICKS on 04-29-2022 CO2 [Moles/Vol] 25.4 mmol/L 22.0-30.0 [facility] Serum or plasma urea nitroge n measurement (mass/volume)Ordered By: PRATEEK HICKS on 04-29-2022 Urea nitrogen [Mass/Vol] 9 mg/dL 9 [facility] Vital Signs Date Time Vital Sign Value Performing Clinician Facility 09-21-2024 09:54-0500 Body temperature 97.52 [degF] Rustam Arnett [facility] 09-21-2024 09:54-0500 Diastolic blood pressure 88 mm[Hg] Rustam Tolberte [facility] 09-21-2024 09:54-0500 Heart rate 86 /min Rustam Arnett [facility] 09-21-2024 09:54-0500 Respiratory rate 14 /min Rustam Arnett [facility] 09-21-2024 09:54-0500 SaO2% (BldA) [Mass fraction] 100 % Rustam Arnett [facility] 09-21-2024 09:54-0500 Systolic blood pressure 157 mm[Hg] Rustam Tolberte [facility] 09-08-2024 11:28-0500 Blood Pressure Location Romeo Yahairarima [facility] 09-08-2024 11:28-0500 Diastolic blood pressure 84 mm[Hg] Romeo Syedrima [facility] 09-08-2024 11:28-0500 Heart rate 79 /min Romeo Syedrima [facility] 09-08-2024 11:28-0500 SaO2% (BldA) [Mass fraction] 98 [facility] 09-08-2024 11:28-0500 Systolic blood pressure 128 mm[Hg[facility] 08-19-2024 10:00-0400 Diastolic blood pressure 84 mm[Hg] Lisa Mauricio DO Work Phone: [facility] 08-19-2024 10:00-0400 Heart rate 88 /min Lisa Mauricio DO Work Phone: [facility] 08-19-2024 10:00-0400 SaO2% (BldA) [Mass fraction] 97 % Lisa Mauricio DO Work Phone: [facility] 08-19-2024 10:00-0400 Systolic blood pressure 126 mm[Hg] Lisa Mauricio DO Work Phone: [facility] 08-11-2024 14:47-0400 Blood Pressure Location [facility] 08-11-2024 14:47-0400 Diastolic blood pressure 70 mm[Hg] [facility] 08-11-2024 14:47-0400 Heart rate 89 /min [facility] 08-11-2024 14:47-0400 SaO2% (BldA) [Mass fraction] 98 % [facility] 08-11-2024 14:47-0400 Systolic blood pressure 114 mm[Hg] [facility] 05-18-2024 12:06-0400 Diastolic blood pressure 90 mm[Hg] [facility] 05-18-2024 12:06-0400 Mean blood pressure 104 mm[Hg] [facility] 05-18-2024 12:06-0400 Systolic blood pressure 132 mm[Hg] [facility] 05-18-2024 11:36-0400 Blood Pressure Location [facility] 05-18-2024 11:36-0400 Diastolic blood pressure 90 mm[Hg] [facility] 05-18-2024 11:36-0400 Heart rate 78 /min [facility] 05-18-2024 11:36-0400 SaO2% (BldA) [Mass fraction] 98 % [facility] 05-18-2024 11:36-0400 Systolic blood pressure 140 mm[Hg] [facility] 02-24-2024 17:26-0400 Blood Pressure Location [facility] 02-24-2024 17:26-0400 Diastolic blood pressure 82 mm[Hg] [facility] 02-24-2024 17:26-0400 Heart rate 91 /min [facility] 02-24-2024 17:26-0400 SaO2% (BldA) [Mass fraction] 97 % [facility] 02-24-2024 17:26-0400 Systolic blood pressure 136 mm[Hg] [facility] 12-23-2023 17:04-0500 Blood Pressure Location [facility] 12-23-2023 17:04-0500 Diastolic blood pressure 80 mm[Hg] [facility] 12-23-2023 17:04-0500 Heart rate 81 /min [facility] 12-23-2023 17:04-0500 SaO2% (BldA) [Mass fraction] 98 % [facility] 12-23-2023 17:04-0500 Systolic blood pressure 110 mm[Hg] [facility] 09-17-2023 15:44-0500 Blood Pressure Location [facility] 09-17-2023 15:44-0500 Diastolic blood pressure 94 mm[Hg] [facility] 09-17-2023 15:44-0500 Heart rate 83 /min [facility] 09-17-2023 15:44-0500 SaO2% (BldA) [Mass fraction] 98 % [facility] 09-17-2023 15:44-0500 Systolic blood pressure 128 mm[Hg] [facility] 06-17-2023 10:35-0400 Blood Pressure Location [facility] 06-17-2023 10:35-0400 Body temperature 97.7 [degF] [facility] 06-17-2023 10:35-0400 Diastolic blood pressure 60 mm[Hg] [facility] 06-17-2023 10:35-0400 Heart rate 82 /min [facility] 06-17-2023 10:35-0400 SaO2% (BldA) [Mass fraction] 97 % [facility] 06-17-2023 10:35-0400 Systolic blood pressure 110 mm[Hg] [facility] 04-04-2023 12:48-0400 Blood Pressure Location [facility] 04-04-2023 12:48-0400 Body temperature 97.7 [degF] [facility] 04-04-2023 12:48-0400 Diastolic blood pressure 80 mm[Hg] [facility] 04-04-2023 12:48-0400 Heart rate 86 /min [facility] 04-04-2023 12:48-0400 SaO2% (BldA) [Mass fraction] 97 % [facility] 04-04-2023 12:48-0400 Systolic blood pressure 111 mm[Hg] Romeo Chaidez [facility] 12-30-2022 10:22-0500 Blood Pressure Location Josyfranko Olsonell [facility] 12-30-2022 10:22-0500 Body temperature 98.42 [degF] Josy Isaacs [facility] 12-30-2022 10:22-0500 Diastolic blood pressure 76 mm[Hg] Josy Isaacs [facility] 12-30-2022 10:22-0500 Heart rate 72 /min Josy Isaacs [facility] 12-30-2022 10:22-0500 SaO2% (BldA) [Mass fraction] 98 % Josy Isaacs [facility] 12-30-2022 10:22-0500 Systolic blood pressure 138 mm[Hg] Josy Isaacs [facility] 10-30-2022 09:54-0500 Blood Pressure Location Josy Isaacs [facility] 10-30-2022 09:54-0500 Body temperature 98.24 [degF] Josy Isaacs [facility] 10-30-2022 09:54-0500 Diastolic blood pressure 74 mm[Hg] Josy Isaacs [facility] 10-30-2022 09:54-0500 Heart rate 77 /min Josy Isaacs [facility] 10-30-2022 09:54-0500 SaO2% (BldA) [Mass fraction] 100 % Josy Isaacs [facility] 10-30-2022 09:54-0500 Systolic blood pressure 130 mm[Hg] Josy Isaacs [facility] 08-26-2022 16:31-0400 Blood Pressure Location Josy Isaacs [facility] 08-26-2022 16:31-0400 Body temperature 97.88 [degF] Josy Isaacs [facility] 08-26-2022 16:31-0400 Diastolic blood pressure 66 mm[Hg] Josy Isaacs [facility] 08-26-2022 16:31-0400 Heart rate 61 /min Josy Isaacs [facility] 08-26-2022 16:31-0400 SaO2% (BldA) [Mass fraction] 98 % Josy Isaacs [facility] 08-26-2022 16:31-0400 Systolic blood pressure 124 mm[Hg] Josy Isaacs [facility] 05-22-2022 11:29-0400 Body temperature 97.3 [degF] MD Prateek Hicks Work Phone: [facility] 05-22-2022 11:29-0400 Diastolic blood pressure 61 mm[Hg] MD Prateek Hicks Work Phone: [facility] 05-22-2022 11:29-0400 Heart rate 64 /min MD Prateek Hicks Work Phone: [facility] 05-22-2022 11:29-0400 Respiratory rate 16 /min MD Prateek Hicks Work Phone: [facility] 05-22-2022 11:29-0400 SaO2% (BldA) [Mass fraction] 98 % MD Prateek Hicks Work Phone: [facility] 05-22-2022 11:29-0400 Systolic blood pressure 120 mm[Hg] MD Prateek Hicks Work Phone: [facility] 05-15-2022 08:00-0400 Body temperature 98.3 [degF] MD Prateek Hicks Work Phone: [facility] 05-15-2022 08:00-0400 Diastolic blood pressure 80 mm[Hg] MD Prateek Hicks Work Phone: [facility] 05-15-2022 08:00-0400 Heart rate 77 /min MD Prateek Hicks Work Phone: [facility] 05-15-2022 08:00-0400 Respiratory rate 16 /min MD Prateek Hicks Work Phone: [facility] 05-15-2022 08:00-0400 SaO2% (BldA) [Mass fraction] 96 % MD Prateek Hicks Work Phone: [facility] 05-15-2022 08:00-0400 Systolic blood pressure 127 mm[Hg] MD Prateek Hicks Work Phone: [facility] 05-14-2022 03:15-0400 Inhaled oxygen flow rate 1 L/min MD Prateek Hicks Work Phone: [facility] 05-13-2022 08:16-0400 Body height 162.56 cm MD Prateek Hicks Work Phone: [facility] 05-13-2022 08:16-0400 Body mass index (BMI) [Ratio] 32.9 kg/m2 MD Prateek Hicks Work Phone: [facility] 05-13-2022 08:16-0400 Body weight 87 kg MD Prateek Hicks Work Phone: [facility] 04-28-2022 11:30-0400 Body temperature 98.06 [degF] Brady Tierney [facility] 04-28-2022 11:30-0400 Diastolic blood pressure 86 mm[Hg] Brady Tierney [facility] 04-28-2022 11:30-0400 Heart rate 74 /min Brady Tierney [facility] 04-28-2022 11:30-0400 Respiratory rate 16 /min Brady Tierney [facility] 04-28-2022 11:30-0400 SaO2% (BldA) [Mass fraction] 98 % Brady Tierney [facility] 04-28-2022 11:30-0400 Systolic blood pressure 126 mm[Hg] Brady Tierney [facility] 02-25-2022 15:59-0400 Blood Pressure Location Josy Isaacs [facility] 02-25-2022 15:59-0400 Body temperature 98.06 [degF] Josy Olsonell [facility] 02-25-2022 15:59-0400 Diastolic blood pressure 78 mm[Hg] Josy Isaacs [facility] 02-25-2022 15:59-0400 Heart rate 74 /min Josy Isaacs [facility] 02-25-2022 15:59-0400 SaO2% (BldA) [Mass fraction] 98 % Josy Isaacs [facility] 02-25-2022 15:59-0400 Systolic blood pressure 128 mm[Hg] Josy Isaacs [facility] 02-19-2022 16:48-0400 Body temperature 98.2 [degF] Remigio Trujillo MD Work Phone: [facility] 02-19-2022 16:48-0400 Diastolic blood pressure 81 mm[Hg] Remigio Trujillo MD Work Phone: [facility] 02-19-2022 16:48-0400 Heart rate 69 /min Remigio Trujillo MD Work Phone: [facility] 02-19-2022 16:48-0400 Systolic blood pressure 121 mm[Hg] Remigio Trujillo MD Work Phone: [facility] Encounters Encounter Date Encounter Type Care Provider Facility Start: 11-10-2024 ambulatory Romeo Chaidez [facility] ty:[facility] Start: 09-21-2024 End: 09-21-2024 Emergency department patient visit Rustam Arnett [facility] Start: 09-08-2024 End: 09-08-2024 ambulatory Romeo Chaidez Facility:[facility] Start: 09-08-2024 End: 09-08-2024 Patient encounter procedure Romeo Chaidez [facility] Start: 09-08-2024 End: 09-08-2024 ambulatory Romeo Chaidez Facility:[facility] Start: 09-08-2024 End: 09-08-2024 Patient encounter procedure Romeo Chaidez [facility] Start: 09-08-2024 End: 09-08-2024 Preprocedural examination done Romeo Chaidez [facility] Start: 08-19-2024 End: 08-19-2024 Bamboo flowsheet Lisa Martínez DO Work Phone: [facility] Start: 08-19-2024 End: 08-19-2024 Bamboo flowsheet Lisa Martínez DO [facility] [address] Start: 08-19-2024 End: 08-19-2024 Patient encounter procedure Lisa Martínez DO Work Phone: [facility] [address] Comment on above: 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) Start: 08-19-2024 End: 08-19-2024 ambulatory LISA MAURICIO Not Available Start: 08-14-2024 End: 08-15-2024 Emergency department patient visit Dameon Varner Facility:[facility] Start: 08-11-2024 End: 08-11-2024 ambulatory Romeo Chaidez Facility:[facility] Start: 08-11-2024 End: 08-11-2024 Patient encounter procedure Romeo Chaidez [facility] Start: 07-19-2024 End: 07-19-2024 Emergency department patient visit Brenna Yoon Facility:[facility] Start: 06-07-2024 End: 06-08-2024 Emergency department patient visit Yovani Negrete Facility:[facility] Start: 06-04-2024 End: 06-04-2024 ambulatory Romeo Chaidez Facility:[facility] Start: 06-04-2024 End: 06-04-2024 Patient encounter procedure Romeo Chaidez [facility] Start: 05-18-2024 End: 05-18-2024 ambulatory Romeo Chaidez Facility:[facility] Start: 05-18-2024 End: 05-18-2024 Patient encounter procedure Romeo Chaidez [facility] Start: 05-13-2024 End: 05-13-2024 ambulatory LISA MARTÍNEZ Not Available Start: 04-13-2024 End: 04-14-2024 Emergency department patient visit Tru Matt Facility:[facility] Start: 02-24-2024 End: 02-24-2024 ambulatory Romeo Chaidez Facility:[facility] Start: 02-24-2024 End: 02-24-2024 Patient encounter procedure Romeo Chaidez [facility] Start: 02-03-2024 End: 02-04-2024 ambulatory REMIGIO TRUJILLO Facility:[facility] Start: 02-03-2024 End: 02-03-2024 Patient encounter procedure Remigio Trujillo MD Work Phone: Plastic Surgery Comment on above: Encounter for cosmet ic procedure (Primary Dx) Start: 01-29-2024 End: 01-29-2024 Emergency department patient visit Bin Bello Facility:[facility] Start: 2023 End: 2023 Emergency department patient visit Tru H Shaka Facility:[facility] Start: 12-23-2023 End: 12-23-2023 ambulatory Romeo Chaidez Facility:[facility] Start: 12-23-2023 End: 12-23-2023 Patient encounter procedure Romeo Chaidez [facility] Start: 11-18-2023 End: 11-18-2023 Emergency department patient visit Jeff Ingram Facility:[facility] Start: 10-21-2023 End: 10-21-2023 ambulatory PRATEEK J PRINTY Not Available Start: 10-14-2023 End: 10-14-2023 ambulatory PRATEEK PRINTY Not Available Start: 10-01-2023 End: 10-01-2023 ambulatory Romeo Chaidez Facility:[facility] Start: 10-01-2023 End: 10-01-2023 Patient encounter procedure Romeo Chaidez [facility] Start: 09-18-2023 End: 09-18-2023 ambulatory PRATEEK J PRINTY Not Available Start: 09-17-2023 End: 09-17-2023 ambulatory Romeo Chaidez Facility:[facility] Start: 09-17-2023 End: 09-17-2023 Patient encounter procedure Romeo Chaidez [facility] Start: 09-15-2023 End: 09-15-2023 Emergency department patient visit Tru Matt Facility:[facility] Start: 06-17-2023 End: 06-17-2023 Patient encounter procedure Romeo Chaidez [facility] Start: 04-04-2023 End: 04-04-2023 Patient encounter procedure Romeo Chaidez [facility] Start: 03-18-2023 End: 03-19-2023 ambulatory REMIGIO TRUJILLO Facility:[facility] Start: 03-10-2023 End: 03-12-[address] DOCTOR BEAL Facility: Start: 12-30-2022 End: 12-30-2022 Patient encounter procedure Josy Isaacs [facility] Start: 12-05-2022 Telephone encounter Kacie Scars [facility] Comment on above: Plastic Surg Skin Ca re (Pt purchased Obagi Clear 4% from [facility]/mailed.) Start: 12-04-2022 Refill Remigio Trujillo MD Work Phone: Plastic Surgery Comment on above: Refill Request Start: 11-24-2022 End: 11-24-2022 ambulatory CHARLIE DIAB . Facility: Start: 10-30-2022 End: 10-30-2022 Patient encounter procedure Josy Isaacs [facility] Start: 10-08-2022 End: 10-08-2022 Patient encounter procedure Remigio Trujillo MD Work Phone: Plastic Surgery Comment on above: Encounter for cosmet ic surgery (Primary Dx) Start: 08-26-2022 End: 08-26-2022 Patient encounter procedure Josy Isaacs [facility] Start: 06-04-2022 End: 06-04-2022 Patient encounter procedure Remigio Trujillo MD Work Phone: Plastic Surgery Comment on above: Elective procedure f or unacceptable cosmetic appearance (Primary Dx) Start: 05-22-2022 End: 05-22-2022 Emergency department patient visit Josy Isaacs Facility:[facility] Start: 05-22-2022 End: 05-22-2022 Emergency department patient visit MD Prateek Hicks Work Phone: [facility] Start: 05-13-2022 End: 05-15-2022 Evaluation and management of inpatient Josy Isaacs Facility:[facility] Start: 05-13-2022 End: 05-15-2022 Evaluation and management of inpatient MD Prateek Hicks Work Phone: [facility] [address] Start: 05-09-2022 End: 05-09-2022 ambulatory Josy Isaacs Facility:[facility] Start: 05-09-2022 End: 05-09-2022 Patient encounter procedure MD Prateek Hicks Work Phone: [facility] Start: 04-29-2022 End: 04-29-2022 ambulatory Josy Isaacs Facility:[facility] Start: 04-29-2022 End: 04-29-2022 Patient encounter procedure MD Prateek Hicks Work Phone: [facility] Start: 04-28-2022 End: 04-28-2022 Emergency department patient visit Brady Tierney [facility] Start: 04-09-2022 End: 04-09-2022 Patient encounter procedure Remigio Trujillo MD Work Phone: Plastic Surgery Comment on above: Encounter for cosmet ic surgery (Primary Dx) Start: 02-25-2022 End: 02-25-2022 Patient encounter procedure Josy Isaacs [facility] Start: 02-19-2022 End: 02-19-2022 Patient encounter procedure Remigio Trujillo MD Work Phone: Plastic Surgery Comment on above: Encounter for cosmet ic surgery (Primary Dx) Start: 02-12-2022 End: 02-12-2022 Patient encounter procedure Nazanin Shaffer [facility] Procedures Date Procedure Procedure Detail Performing [...] DTaP,Tdap,Td Vaccine (2 - Td or Tdap) [facility] Start: 01-27-2027 Screening for malign ant neoplasm of colon [facility] Start: 11-18-2024 End: 11-18-2024 Patient encounter procedure 11/18/2024 11:15 AM EST Procedure Visit [facility] [address] [place] [id number] Lisa Martínez DO [address] [place] [address] [facility] [address] Start: 08-19-2024 End: 08-19-2024 Patient encounter procedure 08/19/2024 10:00 AM EDT Procedure Visit [facility] [address] [place] [id number] Lisa Martínez DO [address] [place] [address] Arrived [facility] Comment on above: Arrived Start: 2023 Shingrix Vaccine (1 of 2) Shingrix Vaccine (1 of 2) [facility] Start: 11-03-2023 Depression Assessment Depression Ass essment [facility] Start: 07-04-2023 Covid-19 Vaccine ( season) Covid-19 Vaccine ( season) [facility] Start: 11-03-2022 [facility] Start: 08-30-2022 Diabetes Screening Diabetes Screenin g [facility] Start: 07-04-2022 Influenza vaccination C [facility] Start: 05-15-2022 [facility] Work Phone: Start: 05-13-2022 Release Peritoneum, Open Approach Release Peritoneum, Open Approach [facility] Start: 05-13-2022 Resection of Bilater al Fallopian Tubes, Open Approach Resection of Bilateral Fallopian Tubes, Open Approach [facility] Start: 05-13-2022 Resection of Bilater al Ovaries, Open Approach Resection of Bilateral Ovaries, Open Approach [facility] Start: 05-13-2022 Resection of Cervix, Open Approach Resection of Cervix, Open Approach [facility] Start: 05-13-2022 Resection of Uterus, Open Approach Resection of Uterus, Open Approach [facility] Start: 05-13-2022 Hospital admission [facility] Work Phone: Start: 11-03-2021 DEPRESSION ASSESSMENT DEPRESSION ASS ESSMENT [facility] Start: 08-30-2020 Screening for malign ant neoplasm of breast Mammogram Screening [facility] Start: 2018 COLOGUARD (FIT-DNA) COLOGUARD (FIT-D NA) [facility] Start: [address] [facility] Start: 2018 COLORECTAL CANCER SCREENING COLORECTAL CANCER SCREENING [facility] Start: [address] COLONOGRAPHY [facility] Start: 2018 DIABETES SCREEN DIABETES SCREEN [facility] Start: 2018 FECAL OCCULT BLOOD FECAL OCCULT BLOO D [facility] Start: 2018 Lipid panel Lipid Screening [facility] Start: 2018 LIPID SCREEN LIPID SCREEN [facility] Start: 2018 Screening for malign ant neoplasm of colon [facility] Start: 2018 SIGMOIDOSCOPY SIGMOIDOSCOPY [facility] Start: [address] [facility] Start: 2003 HPV TESTING HPV TESTING [facility] Start: 2003 Screening for malign ant neoplasm of cervix HPV Testing [facility] Start: 1994 PAP TESTING PAP TESTING [facility] Start: 1994 Screening for malign ant neoplasm of cervix Pap Testing [facility] Start: 1992 Hepatitis B Vaccine (1 of 3 - 19+ 3-dose series) Hepatitis B Vaccine (1 of 3 - 19+ 3-dose series) [facility] Start: 1992 Urine microalbumin profile DTAP,TDAP,TD (1 - Tdap) [facility] Start: 1991 HEPATITIS C SCREENING HEPATITIS C [facility] Start: 1991 Hepatitis C screening Hepatitis C [facility] Start: 1991 HIV SCREENING HIV SCREENING [facility] Start: 1991 HIV screening HIV Screening [facility] Start: 1985 Adult depression screening assessment DEPRESSION SCREENING [facility] Start: 1979 PNEUMOCOCCAL (1 - PCV) PNEUMOCOCCAL (1 - PCV) [facility] Start: 1979 Pneumococcal vaccination Pneum ococcal Vaccine (1 of 2 - PCV) [facility] Start: 1978 COVID-19 VACCINE (#1) COVID-19 VACCI NE (#1) [facility] Start: 1978 COVID-19 VACCINE (1) COVID-19 VACCIN E (1) [facility] Start: 06-24-1974 COVID-19 VACCINE (#1) COVID-19 VACCI NE (#1) [facility] Start: 1973 HEPATITIS B (1 of 3 - 3-dose series) HEPATITIS B (1 of 3 - 3-dose series) [facility] Bacteria identified in Blood by Culture [facility] Patient Education [facility] Work Phone: Patient referral [facility] Work Phone: [facility] Immun[facility] Immunization Date Immunization Notes Care Provider Fa cility 09-17-2023 influenza, injectabl e, quadrivalent, preservative free Romeo Chaidez [facility] 07-13-2020 tetanus toxoid, reduced diphtheria toxoid, and acellular pertussis vaccine, adsorbed Josy Isaacs [facility] 01-14-2011 hepatitis B vaccine, pediatric or pediatric/adolescent dosage Josy Isaacs [facility] 08-15-2010 hepatitis B vaccine, pediatric or pediatric/adolescent dosage Josy Isaacs [facility] 07-17-2010 hepatitis B vaccine, pediatric or pediatric/adolescent dosage Josy Isaacs [facility] NEGATED: Highlighted row has not occurred!08-26-2022 influenza virus vaccine, unspecified formulation Josy Isaacs [facility] Payers Date Payer Category Payer Medicaid [id number] 2013 Medicaid [id number] 1973 Unknown [id number] 2.16.84 0.1.201451.3.579.2.593 1973 Unknown [id number] 2.16.84 0.1.459128.3.579.2.593 1973 Unknown [id number] 2.16.84 0.1.442662.3.579.2.1259 1973 Unknown [id number] 2.16.84 0.1.953728.3.579.2.1259 1973 Unknown [id number] 2.16.840 .1.520575.3.579.2.9 1973 Unknown [id number] 2.16.840 .1.979633.3.579.2.9 1973 Unknown [id number] 2.16.840 .1.286678.3.579.2.9 1973 Unknown [id number] 2.16.8 40.1.012665.3.579.2. 1973 Unknown [id number] 2.16.8 40.1.170249.3.579.2. 1973 Unknown [id number] 2.16.8 40.1.921488.3.579.2. 1973 Unknown [id number] 2.16.8 40.1.306059.3.579.2. 1973 Unknown [id number] 2.16.8 40.1.066968.3.579.2. 1973 Unknown [id number] 2.16.8 40.1.052919.3.579.2.8 1973 Unknown [id number] 2.16.8 40.1.089173.3.579.2. 1973 Unknown [id number] 2.16.8 40.1.660455.3.579.2. 1973 Unknown [id number] 2.16.8 40.1.089058.3.579.2. 1973 Unknown [id number] 2.16.8 40.1.506856.3.579.2. 1973 Unknown [id number] 2.16.8 40.1.188411.3.579.2. 1973 Unknown [id number] 2.16.8 40.1.938287.3.579.2.727 1973 Unknown [id number] 2.16.8 40.1.465770.3.579.2.727 1973 Unknown [id number] 2.16.8 40.1.411767.3.579.2.727 1973 Unknown [id number] 2.16.8 40.1.119735.3.579.2.727 1973 Unknown [id number] 2.16.8 40.1.952604.3.579.2.727 1973 Unknown [id number] 2.16.8 40.1.619306.3.579.2.727 1973 Unknown [id number] 2.16.8 40.1.942977.3.579.2.727 1973 Unknown [id number] 2.16.8 40.1.886641.3.579.2.727 1973 Unknown [id number] 2.16.8 40.1.728783.3.579.2.727 1959 Unknown [id number] Medicaid [employer] [id number] Self-pay Self Pay [id number] Social History Date Type Detail Facility Start: 11-26-2021 End: 08-11-2024 Tobacco smoking status Light tobacco smoker (finding) [facility] Tobacco smoking status Never [facility] Start: 03-18-2023 End: 09-18-2023 Sex Assigned At Female [facility] Start: 06-20-2020 End: 03-18-2023 Tobacco smoking status IDIS Occasional tobacco smoker [facility] Start: 06-20-2020 End: 09-16-2023 Tobacco use and exposure Smokeless tobacco non-user [facility] Start: 1975 Sex Assigned At Female [facility] Start: 05-13-2022 [facility] Start: 05-25-2022 End: 06-04-2022 Exposure to SARS-CoV-2 (event) Not sure [facility] Start: 03-18-2023 End: 09-18-2023 History of Social function [facility] Start: 01-24-2022 Gender identity Identifies as female gender (finding) [facility] Start: 09-16-2023 [facility] History of tobacco use Cigarette Smoker [facility] Start: 03-25-2024 Alcoholic beverage intake Ex-drinker (finding) [facility] Start: 10-29-2023 Alcohol Comment caffeine 3-4 cups/da y [facility] Start: 1975 Sex assigned at Not on file [facility] Goals Date Patient Goal Desired Activity /State Functional Status Date Assessment Result Facility 09-21-2024 Functional Status N/A [facility] 09-08-2024 Functional Status N/A [facility] 08-11-2024 Functional Status N/A [facility] 05-18-2024 Functional Status N/A [facility] 02-24-2024 Functional Status N/A [facility] 12-23-2023 Functional Status N/A [facility] 09-17-2023 Functional Status N/A [facility] 04-04-2023 Functional Status N/A [facility] 12-30-2022 Functional Status N/A [facility] 10-30-2022 Functional Status N/A [facility] 08-26-2022 Functional Status N/A [facility] 04-28-2022 Functional Status N/A [facility] Clinical Notes 11-26-2021 to 09-21-2024 Note Date & Type Note Facility 09-21-2024 Hospital Discharg e instructions Patient Education 09/21/2024 12:24:06 Peripheral Edema Peripheral Edema Peripheral edema is swelling that is caused by a buildup of fluid. Peripheral edema most often affects the lower legs, ankles, and feet. It can also develop in the arms, hands, and face. The area of the body that has peripheral edema will look swollen. It may also feel heavy or warm. Your clothes may start to feel tight. Pressing on the area may make a temporary dent in your skin (pitting edema). You may not be able to move your swollen arm or leg as much as usual. There are many causes of peripheral edema. It can happen because of a complication of other conditions such as heart failure, kidney disease, or a problem with your circulation. It also can be a side effect of certain medicines or happen because of an infection. It often happens to women during . Sometimes, the cause is not known. Follow these instructions at home: Managing pain, stiffness, and swelling Raise (elevate) your legs while you are sitting or lying down. Move around often to prevent stiffness and to reduce swelling. Do not sit or stand for long periods of time. Do not wear tight clothing. Do not wear garters on your upper legs. Exercise your legs to get your circulation going. This helps to move the fluid back into your blood vessels, and it may help the swelling go down. Wear compression stockings as told by your health care provider. These stockings help to prevent blood clots and reduce swelling in your legs. It is important that these are the correct size. These stockings should be prescribed by your doctor to prevent possible injuries. If elastic bandages or wraps are recommended, use them as told by your health care provider. Medicines Take wfos-xzk-gjqpbdn and prescription medicines only as told by your health care provider. Your health care provider may prescribe medicine to help your body get rid of excess water (diuretic). Take this medicine if you are told to take it. General instructions Eat a low-salt (low-sodium) diet as told by your health care provider. Sometimes, eating less salt may reduce swelling. Pay attention to any changes in your symptoms. Moisturize your skin daily to help prevent skin from cracking and draining. Keep all follow-up visits. This is important. Contact a health care provider if: You have a fever. You have swelling in only one leg. You have increased swelling, redness, or pain in one or both of your legs. You have drainage or sores at the area where you have edema. Get help right away if: You have edema that starts suddenly or is getting worse, especially if you are or have a medical condition. You develop shortness of breath, especially when you are lying down. You have pain in your chest or abdomen. You feel weak. You feel like you will faint. These symptoms may be an emergency. Get help right away. Call 911. Do not wait to see if the symptoms will go away. Do not drive yourself to the hospital. Summary Peripheral edema is swelling that is caused by a buildup of fluid. Peripheral edema most often affects the lower legs, ankles, and feet. Move around often to prevent stiffness and to reduce swelling. Do not sit or stand for long periods of time. Pay attention to any changes in your symptoms. Contact a health care provider if you have edema that starts suddenly or is getting worse, especially if you are or have a medical condition. Get help right away if you develop shortness of breath, especially when lying down. This information is not intended to replace advice given to you by your health care provider. Make sure you discuss any questions you have with your health care provider. Document Revised: 06/24/2022 Document Reviewed: 06/24/2022 [employer] Patient Education 2023 [email or web address]. Follow Up Care 09/21/2024 09:39:50 With:Romeo Chaidez Address: [address] [place] [address] When:09/24/2024 12:13:40 [facility] 09-21-2024 Evaluation + Plan note Extrac blas from: Title:ED Note Author:Stephanie ESCOBAR Student, Pat in [place] Date:09/21/24 Edema (R60.9: Edema, unspeci fied) Medication reaction (T50.905A: Adverse effect of unspecified drugs, medicaments and biological substances, initial encounter) Orders: furosemide, 40 mg = 1 tab(s), Tab, Oral, Once, Stop date 09/21/24 12:12:00 EST, STAT, Start date 09/21/24 12:12:00 EST, 09/21/24 12:12:00 EST Basic Metabolic Panel CBC w/ Auto Diff eGFR Extra Blue Tube Extra SST Tube Future Appointments Appointment Date:11/10/2024 04:00:00 PM Scheduled Provider:Romeo Chaidez DO Location:[facility] Appointment Type:[facility] 11-19-2024 NoteED Patient Education Note Nephrology Peripheral Edema Peripheral edema is swelling that is caused by a buildup of fluid. Peripheral edema most often affects the lower legs, ankles, and feet. It can also develop in the arms, hands, and face. The area of the body that has peripheral edema will look swollen. It may also feel heavy or warm. Your clothes may start to feel tight. Pressing on the area may make a temporary dent in your skin (pitting edema).You may not be able to move your swollen arm or leg as much as usual. There are many causes of peripheral edema. It can happen because of a complication of other conditions such as heart failure, kidney disease, or a problem with your circulation. It also can be a sideeffect of certain medicines or happen because of an infection. It often happens to women during . Sometimes, the cause is not known. Follow these instructions at home: Managing pain, stiffness, and swelling ??? Raise (elevate) your legs while you are sitting or lying down. ??? Move around often to prevent stiffness and to reduce swelling. ??? Do not sit or stand for long periods of time. ??? Do not wear tight clothing. Do not wear garters on your upper legs. ??? Exercise your legs to get your circulation going. This helps to move the fluid back into your blood vessels, and it may help the swelling go down. ??? Wear compression stockings as told by your health care provider. These stockings help to prevent blood clots and reduce swelling in your legs. It is important that these are the correct size. These stockings should be prescribed by your doctor to prevent possible injuries. ??? If elastic bandages or wraps are recommended, use them as told by your health care provider. Medicines ??? Take ujje-ajx-hvsvflf and prescription medicines only as told by your health care provider. ??? Your health care provider may prescribe medicine to help your body get rid of excess water (diuretic). Take this medicine if you are told to take it. General instructions ??? Eat a low-salt (low-sodium) diet as told by your health care provider. Sometimes, eating less salt may reduce swelling. ??? Pay attention to any changes in your symptoms. ??? Moisturize your skin daily to help prevent skin from cracking and draining. ??? Keep all follow-up visits. This is important. Contact a health care provider if: ??? You have a fever. ??? You have swelling in only one leg. ??? You have increased swelling, redness, or pain in one or both of your legs. ??? You have drainage or sores at the area where you have edema. Get help right away if: ??? You have edema that starts suddenly or is getting worse, especially if you are or havea medical condition. ??? You develop shortness of breath, especially when you are lying down. ??? You have pain in your chest or abdomen. ??? You feel weak. ??? You feel like you will faint. These symptoms may be an emergency. Get help right away. Call 911. ??? Do not wait to see if the symptoms will go away. ??? Do not drive yourself to the hospital. Summary ??? Peripheral edema is swelling that is caused by a buildup of fluid. Peripheral edema most often affects the lower legs, ankles, and feet. ??? Move around often to prevent stiffness and to reduce swelling. Do not sit or stand for long periods of time. ??? Pay attention to any changes in your symptoms. ??? Contact a health care provider if you have edema that starts suddenly or is getting worse, especially if you are or have a medical condition. ??? Get help right away if you develop shortness of breath, especially when lying down. This information is not intended to replace advice given to you by your health care provider. Make sure you discuss any questions you have with your health care provider. Document Revised: 06/24/2022 Document Reviewed: 06/24/2022 [employer] Patient Education ? 2023 [email or web address].[facility] 09-08-2024 Hospital Discharge instructions Patient Education 09/08/2024 [...] what activities are safe for you. Take fyuq-tik-sxyrloj and prescription medicines only as told by your health care provider. Do not use any products that contain nicotine or tobacco. These products include cigarettes, chewing tobacco, and vaping devices, such as e-cigarettes. These can delay incision healing after surgery.If you need help quitting, ask your health [...] provider. Document Revised: 01/17/2023 Document Reviewed: 01/17/2023 [employer] Patient Education 2023 [email or web address]. [facility] 11-06-2024 NotePatient Education Pharmacology General Anesthesia, Adult, Care After [...] activities are safe for you. ??? Take jtci-vgp-hjnwkth and prescription medicines only as told by [...] provider. Document Revised: 01/17/2023 Document Reviewed: 01/17/2023 [employer] Patient Education ? 2023 [email or web address].[facility] 08-19-2024 History of Present illness Narrative* Lisa Martínez, DO - 08/19/2024 10:00 AM EDT Procedure - Therapeutic injection, Botulinum Toxin, Chronic [...] the patient. The risks included but were notlimited to bleeding/bruising, weakness, ptosis, dysphagia, infection, and . Informed consent for the procedure was obtained and witnessed. All further questions were answered during this visit. Site Prep The areas to be injected were sterilized with 70% isopropanol alcohol. LOT # [id number] EXP 11/2026 Dilution: 1:1 Procedure Procerus 10 units Web Interface Developer, L 5 units Web Interface Developer, R 5 units Frontalis, L 10+5 units [...] without status migrainosus - G43.719 Toradol Lot# [id number] in right Glut gray Exp 06/27 documented in this encounterHCA Midwest [id number] NoteEducation Materials Neurology Chronic Migraine Headache Follow-up with your neurologist to review this emergency department visit and for further treatmentof your chronic migrainous headaches. A migraine headache [...] these instructions at home: Medicines ? Take ojrl-lnq-plgjulj and prescription medicines only as told by your doctor. ? Ask your doctor if the medicine prescribed to you requires you to avoid driving or using machinery. Lifestyle ? Do not drink alcohol. ? Do not smoke or use any products that contain nicotine or tobacco. If you need help quitting, askyour doctor. ? Get 7-9 hours of sleep [...] Headache and Migraine Patients (CHAMP): headachemigraine.org ? [place] Migraine Foundation: americanmigrainefoundation.org ? National Headache Foundation: [...] provider. Document Revised: 06/16/2023 Document Reviewed: 06/16/2023 [employer] Patient Education ? 2023 [employer] Orthopedics Cervical Radiculopathy Follow-up with your surgeon for treatment of your neck pain radiating into the right (more content not included)...[id number] Hospital Discharge instructions Patient Education 08/11/2024 15:31:04 [...] health care provider if you have any questionsor concerns. How do I get ready to [...] require a prescription. You can also purchase kfsz-fui-xqwissh medicines. Medicines may have nicotine in them [...] and encouragement. Call telephone quitlines, such as 1-751-VSGT-NOW, reach out to support groups, or work [...] provider. Document Revised: 10/11/2022 Document Reviewed: 10/11/2022 [employer] Patient Education 2023 [email or web address]. Follow Up Care 05/18/2024 12:56:29 With:Dm ANDINO, XAVIER Boucher, PED Address: [address] [place] [address] [phone] When:3 months Comments:20 min slotcyclobenzaprine 5mg twice a daymeloxicam 7.5mg dailyhave the surgeon send us notesf/u 3 months [facility] 10-09-2024 NotePatient Education Pulmonary Medicine Steps to Quit Smoking [...] health care provider if you have any questionsor concerns. How do I get ready to [...] require a prescription. You can also purchase dzra-yzc-rnmhuax medicines. Medicines may have nicotine in them [...] and encouragement. Call telephone quitlines, such as 5-271-DVZS-NOW, reach out to support groups, or work [...] systems that can (more content not included)... [facility]09-16-2024 NoteEducation Materials Orthopedics Muscle Strain A muscle strain [...] not too tight. General instructions ? Take qfmo-tsg-wtevurk and prescription medicines only as told by [...] was prescribed, do exercises as told by yourhealth care provider. This information is not intended to replace advice given to you by your health care provider. Make sure you discuss any questions you have with your health care provider. Document Revised: 01/07/2022 Document Reviewed: 01/07/2022 [employer] Patient Education ? [email or web address] Note Education Materials Cardiovascular Hypertension, Adult Hypertension is another name for high blood pressure. High blood pressure forces your heart to workharder to pump blood. This can cause problems [...] at each meal with low-fat (lean) proteins. Low- fat proteins includefish, chicken without skin, eggs, beans, and tofu. [...] your heart to beat faster (aerobic exercise) mostdays of the week. This may include walking, swimming, or biking. ? Get at least 30 minutes of exercise that strengthens your muscles (resistance exercise) at least 3 days a week. This may include lifting weights or doing Pilates. ? Do not smoke or use any products that contain nicotine or tobacco. If you need help quitting, askyour doctor. ? Check your blood pressure at home as told by your doctor. ? Keep all follow-up visits. Medicines ? Take upqd-fxe-fhqjnwh and prescription medicines only as told by [...] to work harder to (more content not included)...[facility] [id number] Hospital Discharge instructions Patient Education 05/18/2024 12:23:10 [...] Follow these instructions at home: Medicines Take cpgr-ado-uqgrfso and prescription medicines only as told by your health care provider. Check with your health care provider before taking any new medicines. General instructions Create structure and an organized atmosphere at home. For example: ?Make a list of tasks, then rank them from most important to least important. Work on one task at atime until your listed tasks are done. ?Make [...] will need to monitor your condition and adjustyour treatment over time. Where to find support [...] a problem, search for a local or [facility] mental health care center. Public mental health [...] with Attention Deficit Hyperactivity Disorder: marina.org National Glen of Mental Health: nimh.nih.gov Centers for Disease [...] the National Suicide Prevention Lifeline at or 913. This is open 24 hours a day. Text the Crisis Text Line at 982259. Summary With treatment and support, you can live with ADHD and manage your symptoms. Consider taking part in family therapy or self-help groups with family members or friends. When you talk with friends and family about your ADHD, be patient and communicate openly. Keep all follow-up visits. Your health care provider will need to monitor your condition and adjustyour treatment over time. This information is not intended to replace advice given to you by your health care provider. Make sure you discuss any questions you have with your health care provider. Document Revised: 02/07/2023 Document Reviewed: 02/07/2023 [employer] Patient Education 2022 [email or web address]. Follow Up Care 02/24/2024 18:03:00 With:Dm ANDINO, XAVIER Boucher, PED Address: [address] [place] [address] [phone] When:3 months Comments:[address] for lung cancer screeningI have updated your med list todayThe book I recommend is Crucial Conversations 3 months f/u [facility] 07-16-2024 NotePatient Education Mental and Behavioral Health Living With [...] these instructions at home: Medicines ? Take wqgu-etg-yetpxyv and prescription medicines only as told by [...] keep on track. Keep it with you whenyou leave the house. ? Create spaces where you keep certain things, and always put things back in their places after youuse them. ? Keep all follow-up visits. Your [...] a problem, search for a local or [facility] mental health care center. Public mental health [...] Attention Deficit Hyperactivity Disorder: marina.org ? National Glen of Mental Health: nimh.nih.gov ? Centers for [...] yourself or others, or (more content not included)...[facility]06-12-2024 Note [id number]#1.00[facility]06-12-2024 NoteEducation Materials Neurology Occipital Neuralgia Occipital neuralgia is a type of headache that causes brief episodes of very bad pain in the back of the head. Pain from occipital neuralgia may spread (radiate) to other parts of the head. These headaches may be caused by irritation of the nerves that leave the spinal cord high up in theneck, just below the base of the skull (occipital nerves). The occipital nerves transmit sensationsfrom the back of the head, the top [...] an MRI or CT scan. These look forcauses of pinched nerves. ? Applying pressure to the nerves in the neck to try to re-create the pain. ? Injection of numbing medicine into the occipital nerve areas to see if pain goes away (diagnosticnerve block). How is this treated? Treatment for this condition may begin with simple measures, such as: ? Rest. ? Massage. ? Applying heat or cold to the area. ? Sgql-ips-brdkgkt pain relievers. If these measures do not [...] to the area. General instructions ? Take uhpv-uwd-lrfnebe and prescription medicines only as told by [...] hospital. Summary ? O (more content not included)...[facility] [id number] Hospital Discharge instructions Patient Education 02/24/2024 17:53:49 [...] primary care provider or a mental health assurance services manager health care. Your health care provider may use a symptom checklist or a behavior rating scale to evaluate your symptoms. Your health care provider may also want to talk with people who have observed your behaviors throughout your life. How is this treated? This condition can be treated with medicines and behavior therapy. Medicines may be the best optionto reduce impulsive behaviors and improve attention. Your [...] important for treating ADHD. Counseling is often usedalong with medicine. Your health care provider may suggest: Cognitive behavioral therapy (CBT). This type of therapy teaches you to replace negative thoughts and actions with positive thoughts and actions. When used as part of ADHD treatment, this therapy mayalso include: ?Coping strategies for organization, time management, impulse control, and stress reduction. ?Mindfulness and meditation training. Behavioral management. You may work with a men's golf coach who is specially trained to help people with ADHD manage and organize activities and function more effectively. Follow these instructions at home: Medicines Take ufsp-dqc-vqkwbma and prescription medicines only as told by [...] closely with your health care providers to findthe treatments that work best for you. Follow the same schedule each day. Use reminder devices like notes, calendars, and phone apps to stay on time and organized. Keep all follow-up visits. Your health care provider will need to monitor your condition and adjustyour treatment over time. Where to find more information A health care provider may be able to recommend resources that are available online or over the phone. You could start with: Attention Deficit Disorder Association (ADDA): add.org National Glen of Mental Health (NIMH): nimh.nih.gov Contact a [...] the National Suicide Prevention Lifeline at or 612. This is open 24 hours a day Text the Crisis Text Line at 242989. Summary ADHD is a mental health disorder that starts during childhood and often continues into your adult years. The exact cause of ADHD is not known. Most experts believe genetics and environmental factors contribute to ADHD. There is no cure for ADHD, but treatment with medicine, cognitive behavioral therapy, or behavioralmanagement can help you manage your condition. This information is not intended to replace advice given to you by your health care provider. Make sure you discuss any questions you have with your health care provider. Document Revised: 02/07/2023 Document Reviewed: 02/07/2023 [employer] Patient Education 2022 [email or web address]. Follow Up Care 12/23/2023 18:06:46 With:Dm ANDINO, XAVIER Boucher, PED Address: [address] [place] [address] [phone] When:3 months Comments:20 min slotTo go instructions:Read Driven to Distraction by Pablo Vital to learn more about ADHD ht [email or web address]-[email or web address]-[email or web address]-[email or web address]/*When you see providers outside of [facility], please request that they send office visit notes every time you're seen there - this helps us take better care of youFollow up 3 months [facility] 04-02-2024 NoteHNO ID: [id number] Author: REMIGIO TRUJILLO MD Service: ? Author Type: Physician Type: Progress Notes Filed: 02/03/2024 16:47 Note Text: [facility] STAFF PHYSICIAN NOTE OF PERSONAL INVOLVEMENT IN CARE I have reviewed the progress note obtained and documented by the physician preschool assistant/registered nurse/fellow, and I personally participated in the beck components. I have discussed the case and management of the patient's care. SIGNATURE: Remigio Trujillo, [facility]04-02-2024 NoteHNO ID: [id number] Author: SHAWANDA JORDAN APRN.[facility] Service: ? Author Type: Nurse Practitioner Type: [...] reflects their service. Scribed by Shawanda Jordan APRN.[facility]04-02-2024 History of Present illness Narrative* Remigio Trujillo MD - 02/03/2024 4:42 PM EDT [facility] STAFF PHYSICIAN NOTE OF PERSONAL INVOLVEMENT IN CARE I have reviewed the progress note obtained and documented by the physician preschool assistant/registered nurse/fellow, and I personally participated in the beck components. I have discussed the case and management of the patient's care. SIGNATURE: Remigio Trujillo MD * Shawanda Jordan APRN.[facility] - 02/03/2024 4:15 PM EDT Date: 02/02/2024 PROCEDURE: Syneron DANIELLE to face DIAGNOSIS: dyschromia Reviewed risks, benefits, alternatives, and personnel. Patient stated understanding and consents toproceed. SKIN TYPE: Mane # I ROOM SETUP: [...] reflects their service. Scribed by Shawanda Jordan APRN.[employer] [facility] NoteEducation Materials Cardiovascular Hypertension, Adult Blood pressure 134/91 Your blood pressure was noted to be elevated here in the emergency room. Monitor your blood pressure and follow-up with your primary care physician to review those readings. Return to the emergency department for any worsening symptoms. Hypertension is another name for high blood pressure. High blood pressure forces your heart to workharder to pump blood. This can cause problems [...] at each meal with low-fat (lean) proteins. Low- fat proteins includefish, chicken without skin, eggs, beans, and tofu. [...] your heart to beat faster (aerobic exercise) mostdays of the week. This may include walking, swimming, or biking. ? Get at least 30 minutes of exercise that strengthens your muscles (resistance exercise) at least 3 days a week. This may include lifting weights or doing Pilates. ? Do not smoke or use any products that contain nicotine or tobacco. If you need help quitting, askyour doctor. ? Check your blood pressure at home as told by your doctor. ? Keep all follow-up visits. Medicines ? Take ugel-hzw-famzgyr and prescription medicines only as told by [...] may be an em (more content not included)...[facility] 2023 NoteEducation Materials Neurology Migraine Headache A migraine headache [...] these instructions at home: Medicines ? Take tduh-hla-gxvjsoq and prescription medicines only as told by your doctor. ? Ask your doctor if the medicine prescribed to you: ? Requires you to avoid driving or using heavy machinery. ? Can cause trouble pooping (constipation). You may need to take these steps to prevent or treat trouble pooping: ? Drink enough fluid to keep your pee (urine) pale yellow. ? Take fxkm-pbq-nuvvwdg or prescription medicines. ? Eat foods that [...] side or both sides of your head. Theseheadaches can also cause other symptoms. ? This condition may be treated with medicines and changes to your lifestyle. ? Keep a journal to find out what may bring on your migraine headaches. ? Contact a doctor if you get a migraine headache that is differe (more content not included)...[id number] Hospital Discharge instructions Patient Education 12/23/2023 17:44:31 [...] primary care provider or a mental health assurance services manager health care. Your health care provider may use a symptom checklist or a behavior rating scale to evaluate your symptoms. Your health care provider may also want to talk with people who have observed your behaviors throughout your life. How is this treated? This condition can be treated with medicines and behavior therapy. Medicines may be the best optionto reduce impulsive behaviors and improve attention. Your [...] important for treating ADHD. Counseling is often usedalong with medicine. Your health care provider may suggest: Cognitive behavioral therapy (CBT). This type of therapy teaches you to replace negative thoughts and actions with positive thoughts and actions. When used as part of ADHD treatment, this therapy mayalso include: ?Coping strategies for organization, time management, impulse control, and stress reduction. ?Mindfulness and meditation training. Behavioral management. You may work with a men's golf coach who is specially trained to help people with ADHD manage and organize activities and function more effectively. Follow these instructions at home: Medicines Take oxrm-mvt-amtxoyd and prescription medicines only as told by [...] closely with your health care providers to findthe treatments that work best for you. Follow the same schedule each day. Use reminder devices like notes, calendars, and phone apps to stay on time and organized. Keep all follow-up visits. Your health care provider will need to monitor your condition and adjustyour treatment over time. Where to find more information A health care provider may be able to recommend resources that are available online or over the phone. You could start with: Attention Deficit Disorder Association (ADDA): add.org National Glen of Mental Health ([facility]): [facility].nih.gov Contact a health care provider if: Your [...] nearest emergency room. Call 911. Call the [employer] Suicide Prevention Lifeline at or 492. This is open 24 hours a day Text the [employer] Text Line at 871425. Summary ADHD is a mental health disorder that starts during childhood and often continues into your adult years. The exact cause of ADHD is not known. Most experts believe genetics and environmental factors contribute to ADHD. There is no cure for ADHD, but treatment with medicine, cognitive behavioral therapy, or behavioralmanagement can help you manage your condition. This information is not intended to replace advice given to you by your health care provider. Make sure you discuss any questions you have with your health care provider. Document Revised: 02/07/2023 Document Reviewed: 02/07/2023 [employer] Patient Education 2022 [email or web address]. Follow Up Care 09/17/2023 16:49:24 With:Dm ANDINO, XAVIER Boucher, PED Address: [address] [place] [address] [phone] When:3 months Comments:20 min slotTo go instructions:Continue Adderall as prescribedRead Driven to Distraction by Pablo Vital to learn more about ADHD [email or web address]-[email or web address]-[email or web address] every three months [facility] 01-16-2024 NoteEducation Materials Neurology Migraine Headache A migraine headache [...] these instructions at home: Medicines ? Take zcbo-nge-mxfwpeh and prescription medicines only as told by your health care provider. ? Ask your health care provider if the medicine prescribed to you: ? Requires you to avoid driving or using heavy machinery. ? Can cause constipation. You may need to take these actions to prevent or treat constipation: ? Drink enough fluid to keep your urine pale yellow. ? Take qkws-jet-pjzbcux or prescription medicines. ? Eat foods that [...] ? You develop symptoms (more content not included)...[id number] NoteEducation Materials Neurology Migraine Headache A migraine headache [...] these instructions at home: Medicines ? Take edar-ffv-hrddcio and prescription medicines only as told by your doctor. ? Ask your doctor if the medicine prescribed to you: ? Requires you to avoid driving or using heavy machinery. ? Can cause trouble pooping (constipation). You may need to take these steps to prevent or treat trouble pooping: ? Drink enough fluid to keep your pee (urine) pale yellow. ? Take qbpu-exs-pplmhgw or prescription medicines. ? Eat foods that [...] side or both sides of your head. Theseheadaches can also cause other symptoms. ? This condition may be treated with medicines and changes to your lifestyle. ? Keep a journal to find out what may bring on your migraine headaches. ? Contact a doctor if you get a migraine headache that is differe (more content not included)...[id number] Hospital Discharge instructions Follow Up Care 06/17/2023 11:37:09 With:Romeo Chaidez DO, FAM, PED Address: [address] [place] [address] [phone] When:3 months Comments:ADHD - 3 month [facility] 05-16-2023 NoteHNO ID: [id number] Author: Remigio Trujillo MD Service: ? Author [...] Syneron DANIELLE (maintenance) to face ($200) Remigio Trujillo, [facility]02-27-2023 Evaluation + Plan note Future Scheduled Tests Radiology* MRI Spine Cervical w/o Contrast 12/30/22 [facility] [place] [facility] 02-27-2023 Hospital Discharge instructions Patient Education 12/30/2022 10:59:05 [...] of time, as told by your health careprovider. Doing physical therapy to strengthen your neck [...] your health care provider. Managing pain Take oazb-cyo-rxjkmro and prescription medicines only as told by [...] not have a cervical collar, ask your healthcare provider if it is safe to drive while your neck heals. Ask your health care provider if the medicine prescribed to you requires you to avoid driving or using heavy machinery. Do not use any products that contain nicotine or tobacco, such as cigarettes, e- cigarettes, and chewing tobacco. These can delay healing. [...] the neck into the arm or hand. Weaknesscan also occur in severe cases. Treatment may [...] 07/15/2002 Document Revised: 09/10/2019 Document Reviewed: 09/10/2019 [employer] Patient Education 2020 [email or web address]. 12/30/2022 10:59:03 Tobacco Use Disorder Tobacco Use [...] have at least two symptoms within a 12- month period. How is this treated? This condition is treated by stopping tobacco use. Many people are unable to quit on their own and need help. Treatment may include: Nicotine replacement therapy (NRT). NRT provides nicotine without the other harmful chemicals in tobacco. NRT gradually lowers the dosage of nicotine in the body and reduces withdrawal symptoms. NRT is available as: ?Hoax-dmt-rnpypbv gums, lozenges, and skin patches. ?Prescription mouth [...] recovery for many people. General instructions Take tzyy-alz-utpmliq and prescription medicines only as told by your health care provider. Check with your health care provider before taking any new prescription or fcfc-vhp-tumvgnw medicines. Decide on a friend, family member, or smoking quit-line (such as 7-639-OGOU-NOW in the [place] that you can call [...] 06/25/2005 Document Revised: 10/07/2018 Document Reviewed: 10/07/2018 [employer] Patient Education 2020 [email or web address]. 12/30/2022 10:59:00 BMI for Adults BMI for [...] problems. It is used to check whether aperson is obese, overweight, healthy weight, or underweight. How is BMI calculated? BMI measures your weight and compares it to your height. This can be done either in Japanese ([place] or metric measurements. Note that charts are available to help you find your BMI quickly and easily without having to do these calculations yourself. To calculate your BMI in Japanese ([place] measurements, your health care provider will: [...] muscular build, such as an athlete, may havea BMI that is higher than 24.9. In cases like these, BMI is not an accurate measure of body fat. To determine if excess body fat is the cause of a BMI of 25 or higher, further assessments may needto be done by a health care provider. [...] medical problems. BMI can be measured using Japanese measurements or metric measurements. To interpret your [...] 07/01/2005 Document Revised: 10/02/2018 Document Reviewed: 09/02/2018 [employer] Patient Education 2020 [email or web address]. 12/30/2022 10:58:58 Attention Deficit Hyperactivity Disorder, Adult [...] primary care provider or a mental health assurance services manager health care. Your health care provider may use a symptom checklist or a behavior rating scale to evaluate your symptoms. He or she may also want to talk with people who have observed your behaviors throughout your life. How is this treated? This condition can be treated with medicines and behavior therapy. Medicines may be the best optionto reduce impulsive behaviors and improve attention. Your [...] important for treating ADHD. Counseling is often usedalong with medicine. Your health care provider may suggest: Cognitive behavioral therapy (CBT). This type of therapy teaches you to replace negative thoughts and actions with positive thoughts and actions. When used as part of ADHD treatment, this therapy mayalso include: ?Coping strategies for organization, time management, impulse control, and stress reduction. ?Mindfulness and meditation training. Behavioral management. You may work with a men's golf coach who is specially trained to help people with ADHD manage and organize activities and function more effectively. Follow these instructions at home: Medicines Take zvca-jvq-zzkrlxl and prescription medicines only as told by [...] closely with your health care providers to findthe treatments that work best for you. Follow [...] Attention Deficit Disorder Association (ADDA): www.add.org National Glen of Mental Health (NIM): www.nimh.nih.gov Contact a health care provider if: [...] or have thoughts about taking your own life,get help right away. You can go to the nearest emergency department or call: Your local emergency services (911 in the [place] A suicide crisis helpline, such as the National Suicide Prevention Lifeline at . Thisis open 24 hours a day. Summary ADHD is a mental health disorder that starts during childhood (neurodevelopmental disorder) and often continues into the adult years. The exact cause of ADHD is not known. Most experts believe genetics and environmental factors contribute to ADHD. There is no cure for ADHD, but treatment with medicine, cognitive behavioral therapy, or behavioralmanagement can help you manage your condition. This information is not intended to replace advice given to you by your health care provider. Make sure you discuss any questions you have with your health care provider. Document Released: 06/11/2018 Document Revised: 03/13/2020 Document Reviewed: 03/13/2020 [employer] Patient Education 2020 [employer] Follow Up Care 10/30/2022 10:15:29 With:Josy Isaacs CNP Address[address] [place] [address] [phone] When:3 months [facility] [place] [facility] 12-28-2022 Hospital Discharge instructions Patient Education 10/30/2022 10:28:14 [...] have at least two symptoms within a 12- month period. How is this treated? This condition is treated by stopping tobacco use. Many people are unable to quit on their own and need help. Treatment may include: Nicotine replacement therapy (NRT). NRT provides nicotine without the other harmful chemicals in tobacco. NRT gradually lowers the dosage of nicotine in the body and reduces withdrawal symptoms. NRT is available as: ?Wecw-ocz-ksrznpm gums, lozenges, and skin patches. ?Prescription mouth [...] recovery for many people. General instructions Take xcvz-nhd-xmoytot and prescription medicines only as told by your health care provider. Check with your health care provider before taking any new prescription or ylyw-vwu-lhpfgdb medicines. Decide on a friend, family member, or smoking quit-line (such as 0-128-WWXC-NOW in the [place] that you can call [...] 06/25/2005 Document Revised: 10/07/2018 Document Reviewed: 10/07/2018 [employer] Patient Education 2020 [email or web address]. 10/30/2022 10:28:09 BMI for Adults BMI for [...] problems. It is used to check whether aperson is obese, overweight, healthy weight, or underweight. How is BMI calculated? BMI measures your weight and compares it to your height. This can be done either in Japanese ([place] or metric measurements. Note that charts are available to help you find your BMI quickly and easily without having to do these calculations yourself. To calculate your BMI in Japanese ([place] measurements, your health care provider will: [...] muscular build, such as an athlete, may havea BMI that is higher than 24.9. In cases like these, BMI is not an accurate measure of body fat. To determine if excess body fat is the cause of a BMI of 25 or higher, further assessments may needto be done by a health care provider. [...] medical problems. BMI can be measured using Japanese measurements or metric measurements. To interpret your [...] 07/01/2005 Document Revised: 10/02/2018 Document Reviewed: 09/02/2018 [employer] Patient Education 2020 ibeatyou. 10/30/2022 10:28:07 Attention Deficit Hyperactivity Disorder, Adult [...] primary care provider or a mental health assurance services manager health care. Your health care provider may use a symptom checklist or a behavior rating scale to evaluate your symptoms. He or she may also want to talk with people who have observed your behaviors throughout your life. How is this treated? This condition can be treated with medicines and behavior therapy. Medicines may be the best optionto reduce impulsive behaviors and improve attention. Your [...] important for treating ADHD. Counseling is often usedalong with medicine. Your health care provider may suggest: Cognitive behavioral therapy (CBT). This type of therapy teaches you to replace negative thoughts and actions with positive thoughts and actions. When used as part of ADHD treatment, this therapy mayalso include: ?Coping strategies for organization, time management, impulse control, and stress reduction. ?Mindfulness and meditation training. Behavioral management. You may work with a men's golf coach who is specially trained to help people with ADHD manage and organize activities and function more effectively. Follow these instructions at home: Medicines Take ciss-uhc-yysmxfd and prescription medicines only as told by [...] closely with your health care providers to findthe treatments that work best for you. Follow [...] Attention Deficit Disorder Association (ADDA): www.add.org National Glen of Mental Health (NIMH): www.nimh.nih.gov Contact a [...] or have thoughts about taking your own life,get help right away. You can go to the nearest emergency department or call: Your local emergency services (911 in the [place] A suicide crisis helpline, such as the National Suicide Prevention Lifeline at . Thisis open 24 hours a day. Summary ADHD is a mental health disorder that starts during childhood (neurodevelopmental disorder) and often continues into the adult years. The exact cause of ADHD is not known. Most experts believe genetics and environmental factors contribute to ADHD. There is no cure for ADHD, but treatment with medicine, cognitive behavioral therapy, or behavioralmanagement can help you manage your condition. This information is not intended to replace advice given to you by your health care provider. Make sure you discuss any questions you have with your health care provider. Document Released: 06/11/2018 Document Revised: 03/13/2020 Document Reviewed: 03/13/2020 [employer] Patient Education 2020 [email or web address]. Follow Up Care 08/26/2022 17:13:26 With:Josy Isaacs CNP Address: [address] [place] [phone] When:3 months [facility] 12-06-2022 History of Present illness Narrative* Sara Michaels, NESTOR - 10/08/2022 4:15 PM EST Date: 10/08/2022 PROCEDURE: Syneron face maintenance DIAGNOSIS: dyschromia and facial rhytids Reviewed risks, benefits, alternatives, and personnel. Patient stated understanding and consents toproceed. SKIN TYPE: Mane # II ROOM SETUP: Laser safety checklist followed Doors closed Safety DANGER signs posted Laser instrumentation utilized Laser eyeware immediately accessible before entering OR EYE PROTECTION: Patient Physician Personnel MALFUNCTIONS / PROBLEMS ENCOUNTERED DURING SURGERY/PROCEDURE: Not applicable for this patient PROCEDURE: The patient was prepared with ultrasound gel. The laser settings were initially chosen at 25J/cm(2)- RF 25J/cm(3) to face and 15J/cm(3) to [...] Trujillo M.D. and the following reflects his/her service.Scribed by Kirsten De Jesus I agree with the Chief Complaint, ROS, and Past Histories independently gathered by the clinical manager decision support and the remaining scribed note accurately describes my personal service to the patient. marky trujillo [facility] Hospital Discharge instructions Patient Education 08/26/2022 20:16:01 [...] problems. It is used to check whether aperson is obese, overweight, healthy weight, or underweight. How is BMI calculated? BMI measures your weight and compares it to your height. This can be done either in Japanese ([place] or metric measurements. Note that charts are available to help you find your BMI quickly and easily without having to do these calculations yourself. To calculate your BMI in Japanese ([place] measurements, your health care provider will: [...] muscular build, such as an athlete, may havea BMI that is higher than 24.9. In cases like these, BMI is not an accurate measure of body fat. To determine if excess body fat is the cause of a BMI of 25 or higher, further assessments may needto be done by a health care provider. [...] medical problems. BMI can be measured using Japanese measurements or metric measurements. To interpret your [...] 07/01/2005 Document Revised: 10/02/2018 Document Reviewed: 09/02/2018 [employer] Patient Education 2020 [email or web address]. 08/26/2022 20:15:59 Tobacco Use Disorder Tobacco Use [...] have at least two symptoms within a 12- month period. How is this treated? This condition is treated by stopping tobacco use. Many people are unable to quit on their own and need help. Treatment may include: Nicotine replacement therapy (NRT). NRT provides nicotine without the other harmful chemicals in tobacco. NRT gradually lowers the dosage of nicotine in the body and reduces withdrawal symptoms. NRT is available as: ?Famh-typ-bwobdgb gums, lozenges, and skin patches. ?Prescription mouth [...] recovery for many people. General instructions Take elxy-fky-umxonna and prescription medicines only as told by your health care provider. Check with your health care provider before taking any new prescription or ltjj-vke-rtoqiyc medicines. Decide on a friend, family member, or smoking quit-line (such as 2-543-QXEY-NOW in the [place] that you can call [...] 06/25/2005 Document Revised: 10/07/2018 Document Reviewed: 10/07/2018 [employer] Patient Education 2020 [email or web address]. 08/26/2022 20:15:57 Attention Deficit Hyperactivity Disorder, Adult [...] primary care provider or a mental health assurance services manager health care. Your health care provider may use a symptom checklist or a behavior rating scale to evaluate your symptoms. He or she may also want to talk with people who have observed your behaviors throughout your life. How is this treated? This condition can be treated with medicines and behavior therapy. Medicines may be the best optionto reduce impulsive behaviors and improve attention. Your [...] important for treating ADHD. Counseling is often usedalong with medicine. Your health care provider may suggest: Cognitive behavioral therapy (CBT). This type of therapy teaches you to replace negative thoughts and actions with positive thoughts and actions. When used as part of ADHD treatment, this therapy mayalso include: ?Coping strategies for organization, time management, impulse control, and stress reduction. ?Mindfulness and meditation training. Behavioral management. You may work with a men's golf coach who is specially trained to help people with ADHD manage and organize activities and function more effectively. Follow these instructions at home: Medicines Take whse-fad-ghgdiji and prescription medicines only as told by [...] closely with your health care providers to findthe treatments that work best for you. Follow [...] Attention Deficit Disorder Association (ADDA): www.add.org National Glen of Mental Health (NIMH): www.nimh.nih.gov Contact a [...] or have thoughts about taking your own life,get help right away. You can go to the nearest emergency department or call: Your local emergency services (911 in the [place] A suicide crisis helpline, such as the National Suicide Prevention Lifeline at . Thisis open 24 hours a day. Summary ADHD is a mental health disorder that starts during childhood (neurodevelopmental disorder) and often continues into the adult years. The exact cause of ADHD is not known. Most experts believe genetics and environmental factors contribute to ADHD. There is no cure for ADHD, but treatment with medicine, cognitive behavioral therapy, or behavioralmanagement can help you manage your condition. This information is not intended to replace advice given to you by your health care provider. Make sure you discuss any questions you have with your health care provider. Document Released: 06/11/2018 Document Revised: 03/13/2020 Document Reviewed: 03/13/2020 [employer] Patient Education 2020 [employer] 08/26/2022 20:15:55 Migraine Headache Migraine Headache [...] contain nitrates, glutamate, aspartame, or tyramine. Aged cheeses,chocolate, or caffeine may also be triggers. Doing [...] Follow these instructions at home: Medicines Take okgf-bdj-vnsuoso and prescription medicines only as told by your health care provider. Ask your health care provider if the medicine prescribed to you: ?Requires you to avoid driving or using heavy machinery. ?Can cause constipation. You may need to take these actions to prevent or treat constipation: ?Drink enough fluid to keep your urine pale yellow. ?Take aazd-kex-pqkldek or prescription medicines. ?Eat foods that are high in fiber, such as beans, whole grains, and fresh fruits and vegetables. ?Limit foods that are high in fat and processed sugars, such as fried or sweet foods. Lifestyle Do not drink alcohol. Do not use any products that contain nicotine or tobacco, such as cigarettes, e- cigarettes, and chewing tobacco. If you need help [...] 10/20/2006 Document Revised: 02/11/2020 Document Reviewed: 12/02/2019 [employer] Patient Education 2020 [employer] Follow Up Care 02/25/2022 16:52:01 With:Josy Isaacs CNP Address: [address] [place] [phone] When:1 month [facility] 08-02-2022 History of Present illness Narrative* Remigio Trujillo MD - 06/04/2022 4:30 PM EDT Date: 06/04/2022 PROCEDURE: Syneron face maintenance DIAGNOSIS: dyschromia and facial rhytids Reviewed risks, benefits, alternatives, and personnel. Patient stated understanding and consents toproceed. SKIN TYPE: Mane # II ROOM SETUP: Laser safety checklist followed Doors closed Safety DANGER signs posted Laser instrumentation utilized Laser eyeware immediately accessible before entering OR EYE PROTECTION: Patient Physician Personnel MALFUNCTIONS / PROBLEMS ENCOUNTERED DURING SURGERY/PROCEDURE: Not applicable for this patient PROCEDURE: The patient was prepared with ultrasound gel. The laser settings were initially chosen at 25J/cm(2)- RF 25J/cm(3) to face and 15J/cm(3) to forehead. Pulses= 68 Remigio Trujillo M.D. performed the procedure. This setting was then used to SITE 1.) TREATMENT NUMBER 20 of the face PAIN: No: 0 on a scale of 0 to 10 The patient tolerated the procedure well. Will return prn. Humberto SANTOS (maintenance) to face ($200) The patient is seen and examined by Remigio Trujillo M.D. and the following reflects his/her service.Scribed by Kirsten De Jesus I agree with the Chief Complaint, ROS, and Past Histories independently gathered by the clinical manager decision support and the remaining scribed note accurately describes my personal service to the patient. marky trujillo [facility] Discharge instructions Patient Education 04/28/2022 12:32:16 Skin Abscess, Aaye-dx-Dxyn Skin Abscess A skin abscess is an [...] Follow these instructions at home: Medicines Take jlhu-xij-pqqzipb and prescription medicines only as told by [...] bandage or gauze. If you cannot use soapand water, use hand service restorer emergency. Check your abscess every day for signs that the infection is getting worse. Check for: ?More redness, swelling, or pain. ?More fluid or blood. ?Warmth. ?More pus or a bad smell. General instructions To avoid spreading the infection: ?Do not share personal care items, towels, or hot tubs with others. ?Avoid making zmwe-ga-eugg contact with other people. Keep all follow-up [...] 04/07/2009 Document Revised: 02/10/2020 Document Reviewed: 12/03/2018 [employer] Patient Education 2020 [employer] Follow Up Care 04/28/2022 11:27:09 With:Josy Isaacs Address:Unknown When:05/01/2022 12:04:27 [facility]06-07[facility]20[facility] History of Present illness Narrative* Remigio Trujillo MD - 04/09/2022 4:30 PM EDT Date: 04/09/2022 PROCEDURE: Syneron face maintenance DIAGNOSIS: dyschromia and facial rhytids Reviewed risks, benefits, alternatives, and personnel. Patient stated understanding and consents toproceed. SKIN TYPE: Mane # II ROOM SETUP: Laser safety checklist followed Doors closed Safety DANGER signs posted Laser instrumentation utilized Laser eyeware immediately accessible before entering OR EYE PROTECTION: Patient Physician Personnel MALFUNCTIONS / PROBLEMS ENCOUNTERED DURING SURGERY/PROCEDURE: Not applicable for this patient PROCEDURE: The patient was prepared with ultrasound gel. The laser settings were initially chosen at 25J/cm(2)- RF 25J/cm(3) to face and 15J/cm(3) to [...] Trujillo M.D. and the following reflects his/her service.Scribed by Kirsten De Jesus,I agree with the Chief Complaint, ROS, and Past Histories independentlygathered by the clinical manager decision support and the remaining scribed note accurately describes my personal service to the patient. marky trujillo [facility] History of Present illness Narrative* Remigio Trujillo MD - 02/19/2022 4:30 PM EDT Date: 02/19/2022 PROCEDURE: Syneron face maintenance DIAGNOSIS: dyschromia and facial rhytids Reviewed risks, benefits, alternatives, and personnel. Patient stated understanding and consents toproceed. SKIN TYPE: Mane # II ROOM SETUP: Laser safety checklist followed Doors closed Safety DANGER signs posted Laser instrumentation utilized Laser eyeware immediately accessible before entering OR EYE PROTECTION: Patient Physician Personnel MALFUNCTIONS / PROBLEMS ENCOUNTERED DURING SURGERY/PROCEDURE: Not applicable for this patient PROCEDURE: The patient was prepared with ultrasound gel. The laser settings were initially chosen at 24J/cm(2)- RF 25J/cm(3) to face and 15J/cm(3) to [...] Trujillo M.D. and the following reflects his/her service.Scribed by Kirsten De Jesus RNI agree with the Chief Complaint, ROS, and Past Histories independently gathered by the clinical manager decision support and the remaining scribed note accurately describes my personal service to the patient. marky trujillo documented [facility] Hospital Discharge instructions Follow Up Care 11/26/2021 16:27:06 With:Josy Isaacs CNP Address: When:6 months Comments:or sooner if needed. [facility] Evaluation + Plan note Future Appointments Appointment Date:02/25/2022 04:00:00 PM Scheduled Provider:Josy Isaacs CNP [facility] Appointment Date:08/26/2022 04:20:00 PM Scheduled Provider:Josy Isaacs CNP Location:[facility] Appointment Type:[facility] Evaluation + Plan note Future Appointments Appointment Date:08/26/2022 04:20:00 PM Scheduled Provider:Josy Isaacs CNP Location:[facility] Appointment Type: Open Diagnostic Tests Pending * Wound [facility]ments Appointment Date:09/30/2022 11:00:00 AM Scheduled Provider:Josy Isaacs CNP Location:[facility] Appointment Type:[facility] Evaluation + Plan note Future Appointments Appointment Date:12/30/2022 10:20:00 AM Scheduled Provider:Josy Isaacs CNP Location:[facility] Appointment Type:[facility] Evaluation + Plan note Future Appointments Appointment Date:05/02/2023 08:40:00 AM Scheduled Provider:Romeo Chaidez DO Location:[facility] Appointment Type:FM New Patient - Adult Future Scheduled Tests Radiology* MRI Spine Cervical w/o Contrast 12/30/22 [facility] Evaluation + Plan note Future Appointments Appointment Date:09/17/2023 03:40:00 PM Scheduled Provider:Romeo Chaidez DO Location:[facility] Appointment Type: Open Future Scheduled Tests Laboratory* HgbA1c 06/17/23 * TSH With T4fr Reflex 06/17/23 * CBC w/ Auto Diff 06/17/23 * Ferritin 06/17/23 * Folate Level 06/17/23 * Iron Level 06/17/23 * Transferrin 06/17/23 * Vitamin B12 Level 06/17/23 Radiology* MRI Spine Cervical w/o Contrast 12/30/22 [facility] Evaluation + Plan note Future Appointments Appointment Date:12/23/2023 05:00:00 PM Scheduled Provider:Romeo Chaidez DO Location:[facility] Appointment Type: Open Future Scheduled Tests Laboratory* HgbA1c 06/17/23 * TSH With T4fr Reflex 06/17/23 * CBC w/ Auto Diff 06/17/23 * Ferritin 06/17/23 * Folate Level 06/17/23 * Iron Level 06/17/23 * Transferrin 06/17/23 * Vitamin B12 Level 06/17/23 Radiology* MRI Spine Cervical w/o Contrast 12/30/22 [facility] Evaluation + Plan note Future Appointments Appointment Date:12/23/2023 05:00:00 PM Scheduled Provider:Romeo Chaidez DO Location:[facility] Appointment Type: Open Future Scheduled Tests Radiology* MRI Spine Cervical w/o Contrast [facility]ments Appointment Date:02/24/2024 05:20:00 PM Scheduled Provider:Romeo Chaidez DO Location:[facility] Appointment Type: Open Future Scheduled Tests Laboratory* Vitamin D 25 Hydroxy 10/07/23 Radiology* MRI Spine Cervical w/o Contrast 12/30/22 [facility] Evaluation + Plan note Future Appointments Appointment Date:05/18/2024 11:40:00 AM Scheduled Provider:Romeo Chaidez DO Location:[facility] Appointment Type: Open Future Scheduled Tests Laboratory* Vitamin D 25 Hydroxy 10/07/23 [facility] evaluation + Plan note Future Appointments Appointment Date:08/11/2024 02:40:00 PM Scheduled Provider:Romeo Chaidez DO Location:[facility] Appointment Type: Open Future Scheduled Tests Laboratory* Vitamin D 25 Hydroxy 10/07/23 Radiology* CT Chest, Low Dose Screening 05/18/24 [facility] Evaluation + Plan note Future Appointments Appointment Date:08/11/2024 02:40:00 PM Scheduled Provider:Romeo Chaidez DO Location:[facility] Appointment Type: Open Future Scheduled Tests Laboratory* Vitamin D 25 Hydroxy 10/07/23 [facility] Evaluation + Plan note Future Appointments Appointment Date:11/10/2024 04:00:00 PM Scheduled Provider:Romeo Chaidez DO Location:[facility] Appointment Type: Open Future Scheduled Tests Laboratory* Vitamin D 25 Hydroxy 10/07/23 [facility] evaluation + Plan note Future Appointments Appointment Date:11/10/2024 04:00:00 PM Scheduled Provider:Romeo Chaidez DO Location:[facility] Appointment Type: Open [facility] Evaluation note* Diagnosis Encounter for cosmetic surgery- Primary Other plastic surgery for unacceptable cosmetic appearance [facility] Diagnosis Encounter for cosmetic surgery- Primary Other plastic surgery for unacceptable cosmetic appearance [facility] Diagnosis Onset Date Resolution Status Menorrhagia, premenopausal a [facility] Work Phone: Evaluation note* Diagnosis Elective procedure for unacceptable cosmetic appearance- Primary Other plastic surgery for unacceptable cosmetic appearance [facility] Diagnosis Encounter for cosmetic surgery- Primary Other plastic surgery for unacceptable cosmetic appearance [facility] Diagnosis Encounter for cosmetic procedure- Primary [facility]* Diagnosis Intractable chronic migraine without aura and without status migrainosus (CMS/HCC)- Primary [facility] N[facility] No data available for this section [facility] No data available for this section [facility] No data available for this section [facility] Chief Complaint and Reason for Visit [...] or prosecute any alcohol or drug abuse patient.[facility] HospitalIn the event this information is protected by the Federal Confidentiality of Alcohol and Drug Abuse Patient Records regulations: The Federal rules restrict any use of the information to criminally investigate or prosecute any alcohol or drug abuse patient.[facility] HospitalIn the event this information is protected by the Federal Confidentiality of Alcohol and Drug Abuse Patient Records regulations: The Federal rules restrict any use of the information to criminally investigate or prosecute any alcohol or drug abuse patient.[facility] HospitalIn the event this information is protected by the Federal Confidentiality of Alcohol and Drug Abuse Patient Records regulations: The Federal rules restrict any use of the information to criminally investigate or prosecute any alcohol or drug abuse patient.[facility] HospitalIn the event this information is protected by the Federal Confidentiality of Alcohol and Drug Abuse Patient Records regulations: The Federal rules restrict any use of the information to criminally investigate or prosecute any alcohol or drug abuse patient.[facility] HospitalIn the event this information is protected by the Federal Confidentiality of Alcohol and Drug Abuse Patient Records regulations: The Federal rules restrict any use of the information to criminally investigate or prosecute any alcohol or drug abuse patient.[facility] HospitalIn the event this information is protected by the Federal Confidentiality of Alcohol and Drug Abuse Patient Records regulations: The Federal rules restrict any use of the information to criminally investigate or prosecute any alcohol or drug abuse patient.[facility] Reason for Visit (unrecogniz ed section and content) Reason Comments Established Patient Reason Comments Consult Reason Comments Follow Up Reason Comments Procedure Reason Onset Date Comments Refill Request 12/04/2022 Reason Comments Plastic Surg Skin Care Pt purchased Obag i Clear 4% from [facility]/mailed. Reason Comments Procedure Laser tx Reason Comments Botulinum Toxin Injection Care Teams (unrecognized sec tion and content) Behavioral Consultant Relationship Specialty Start Date End Date Varun Card PCP - General Family Practice 05/20/17 Behavioral Consultant Relationship Specialty Start Date End Date Varun [...] Hicks MD Attending Provider Active Josy Isaacs NP-C Primary Care Provider Active Team Status: Inactive Member Role Status Dates Prateek Hicks MD Admit Provider, Attending Provider A ctive Josy Isaacs NP-C Primary Care Provider Active Team Status: Active Member Role Status Dates Josy Isaacs NP-C Primary Care Provider Active Behavioral Consultant Relationship Specialty Start Date End Date Varun Card PCP - General Family Medicine 05/20/17 Behavioral Consultant Relationship Specialty Start Date End Date Varun Card PCP - General Family Medicine 05/20/17 Behavioral Consultant Relationship Specialty Start Date End Date Varun Card PCP - General Family Medicine 05/20/17 Behavioral Consultant Relationship Specialty Start Date End Date Romeo Chaidez DO [address] [place] [address] PCP - General Family Medicine 09/18/23 Behavioral Consultant Relationship Specialty Start Date End Date Romeo Chaidez DO [address] [place] [address] PCP - General Family Medicine 09/18/23 INFORMATION SOURCE (unrecogn ized section and content) DATE CREATED AUTHOR 12/07/2022 [facility] DATE CREATED AUTHOR AUTHOR'S ORGANIZ ATION 03/13/2023 [facility] DATE CREATED AUTHOR AUTHOR'S ORGANIZ ATION 02/07/2024 [facility] DATE CREATED AUTHOR AUTHOR'S ORGANIZ ATION 08/21/2024 [facility] DATE CREATED AUTHOR AUTHOR'S ORGANIZ ATION 08/28/2024 [facility] DATE CREATED AUTHOR AUTHOR'S ORGANIZ ATION 09/10/2024 [facility] DATE CREATED AUTHOR AUTHOR'S ORGANIZ ATION 09/23/2024 [facility] FOR RECORDS PERTAINING TO PATIENTS WHO [...] BE BASED ON THE PRIMARY CLINICAL RECORDS. [facility]. provides no warranty or guarantee of the accuracy or completeness of information in this document.
--- NOTE | 2024-09-25 02:17 | ED.BACK1 ---
HPI HPI - Back Pain/Injury General Chief Complaint: Back Pain/Injury Stated Complaint: UE PAIN Time Seen by Provider: 09/25/24 02:05 Source: patient Mode of arrival: walk-in History of Present Illness HPI Narrative: patient states she has surgery last week to her C-spine. States after surgery she was able to regain strength of her right hand. Still has not regained strength of the left hand. also has swelling of her left leg before surgery. Did have doppler LLE and there was no DVT of her leg. States the pain of her right back/shoulder and arm resolved after surgery. Yesterday this pain returned and continues. Not able to receive relief with Tramadol. No fever. Describes pain radiating from her back into her right chest. No dyspnea Related Data Home Medications ?Medication ?Instructions ?Recorded ?Confirmed dextroamphetamine-amphetamine ER 20 mg PO DAILY 12/28/23 09/17/24 20 mg 24hr capsule,extend release (Adderall XR) fluoxetine 20 mg capsule 20 mg PO QPM 12/28/23 09/17/24 ketorolac 10 mg tablet 10 mg PO BID PRN pain 12/28/23 09/17/24 cyclobenzaprine 10 mg tablet 10 mg PO BID 09/03/24 09/17/24 dextroamphetamine-amphetamine ER 10 mg PO QNOON 09/03/24 09/17/24 10 mg 24hr capsule,extend release dupilumab 300 mg/2 mL subcutaneous 300 mg subcut .[id number] 09/03/24 09/17/24 pen injector (Dupixent) estradiol 0.05 mg/24 hr semiweekly 1 patch transdermal .every 3 days 09/03/24 09/17/24 transdermal patch (Leonarda) gabapentin 100 mg capsule 100 mg PO Q12H 09/03/24 09/17/24 hydroxyzine HCl 10 mg tablet 10 mg PO .QHS 09/03/24 09/17/24 magnesium 200 mg tablet 200 mg PO DAILY 09/03/24 09/17/24 rimegepant 75 mg disintegrating 75 mg PO DAILY PRN migraine 09/03/24 09/17/24 tablet (Nurtec ODT) headache meloxicam 7.5 mg tablet 7.5 mg PO .QD 09/17/24 09/17/24 Previous Rx's ?Medication ?Instructions ?Recorded cephalexin 500 mg capsule 500 mg PO Q6H 7 days #28 caps 09/12/24 docusate sodium 100 mg capsule 100 mg PO BID #14 caps 09/12/24 (Colace) ondansetron 4 mg disintegrating 4 mg PO Q8H PRN nausea and 09/12/24 tablet vomiting 4 days #16 tabs oxycodone-acetaminophen 5 mg-325 1 tab PO Q6H PRN pain 3 days #12 09/12/24 mg tablet (Percocet) tabs polyethylene glycol 3350 17 17 g PO DAILY PRN constipation 09/12/24 gram/dose oral powder (Miralax) #238 grams Allergies Allergy/AdvReac Type Severity Reaction Status Date / Time adhesive tape Allergy Intermediate Rash Verified 09/25/24 01:52 Penicillins Allergy Intermediate Rash Verified 09/25/24 01:52 sumatriptan (From Imitrex) Allergy Intermediate Unknown Verified 09/25/24 01:52 promethazine (From Phenergan) Allergy Unknown Verified 09/25/24 01:52 Opioid HPI Opioid Management Most Recent Opioid Data: Last Pain Scale 5 09/25/24 05:04 09/25/24 Last ED Pain Assessment 09/25/24 05:04 Last MAR Pain Assessment 09/25/24 04:02 Review of Systems ROS Status of ROS 10 or more systems reviewed and unremarkable except as noted in history and below [facility] Medical History (Updated 09/25/24 @ 04:56 by Sohan Blanc MD) Anemia ?D64.9 - Anemia, unspecified (ICD-10) Anxiety ?F41.9 - Anxiety disorder, unspecified (ICD-10) Depression ?F32.A - Depression, unspecified (ICD-10) Sleep apnea ?G47.30 - Sleep apnea, unspecified (ICD-10) Chronic obstructive pulmonary disease ?J44.9 - Chronic obstructive pulmonary disease, unspecified (ICD-10) Migraine ?G43.909 - Migraine, unspecified, not intractable, without status migrainosus (ICD-10) Narcolepsy ?G47.419 - Narcolepsy without cataplexy (ICD-10) ADD (attention deficit disorder) ?F98.8 - Other specified behavioral and emotional disorders with onset usually occurring in childhood and adolescence (ICD-10) Constipation ?K59.00 - Constipation, unspecified (ICD-10) Dyspnea on exertion ?R06.09 - Other forms of dyspnea (ICD-10) Abdominal adhesions ?K66.0 - Peritoneal adhesions (postprocedural) (postinfection) (ICD-10) Bowel obstruction ?K56.609 - Unspecified intestinal obstruction, unspecified as to partial versus complete obstruction (ICD-10) Lipoma ?D17.9 - Benign lipomatous neoplasm, unspecified (ICD-10) Ovarian cyst ?N83.209 - Unspecified ovarian cyst, unspecified side (ICD-10) IBS (irritable bowel syndrome) ?K58.9 - Irritable bowel syndrome, unspecified (ICD-10) GERD (gastroesophageal reflux disease) ?K21.9 - Gastro-esophageal reflux disease without esophagitis (ICD-10) Fibromyalgia ?M79.7 - Fibromyalgia (ICD-10) Endometriosis ?N80.9 - Endometriosis, unspecified (ICD-10) Neck pain ?M54.2 - Cervicalgia (ICD-10) Cervical stenosis of spine ?M48.02 - Spinal stenosis, cervical region (ICD-10) Surgical History (Updated 09/17/24 @ 09:08 by Virgie Valenzuela RN) H/O sinus surgery ?Z98.890 - Other specified postprocedural states (ICD-10) History of breast augmentation ?Z98.82 - Breast implant status (ICD-10) H/O abdominoplasty ?Z98.890 - Other specified postprocedural states (ICD-10) H/O abdominal surgery ?Z98.890 - Other specified postprocedural states (ICD-10) History of intestinal surgery ?Z98.890 - Other specified postprocedural states (ICD-10) History of appendectomy ?Z90.49 - Acquired absence of other specified parts of digestive tract (ICD-10) History of hysterectomy ?Z90.710 - Acquired absence of both cervix and uterus (ICD-10) S/P excision of lipoma ?Z98.890 - Other specified postprocedural states (ICD-10) ?Z86.018 - Personal history of other benign neoplasm (ICD-10) Family History (Updated 09/03/24 @ 09:48 by Ansley Carmen NP) Other Alcoholism Anxiety Family history of cancer Family history of coronary artery disease Family history of diabetes mellitus Family history of hypertension Heart disease Mental health disorder Rheumatoid arthritis Social History (Updated 09/03/24 @ 09:38 by Ansley Carmen NP) Within the past year, how often did you have a drink containing alcohol: never Score interpretation: A score less than 3 is consistent with normal alcohol consumption. Smoking status: Current every day smoker What tobacco products do you use: cigarettes Packs per day: 1 Years smoked: 30 Smoking pack-years: 30.00 Non-prescribed substance use: cannabis (any form) Highest level of school completed/degree received: some college, no degree Little interest or pleasure in doing things: not at all Feeling down, depressed, or hopeless: not at all Exam Constitutional Vital Signs, click to edit/add: Last Vital Signs Temp 98.9 F 09/25/24 01:52 Pulse 89 09/25/24 05:05 Resp 17 09/25/24 05:05 BP 133/99 H 09/25/24 05:05 Pulse Ox 95 09/25/24 05:05 O2 Del Method Room Air 09/25/24 01:52 Common normals: average body habitus, oriented x3, no limitations, healthy appearing, alert and well nourished Other: mild distress HENMT Common normals: normocephalic and head/scalp atraumatic Eye Common normals: EOMs intact bilaterally and conjunctivae normal Neck & C-Spine Other: mild tenderness right superior traqezius Chest Common normals: inspection of chest normal Respiratory Common normals: normal respiratory effort, no retractions, no use of accessory muscles and clear to auscultation bilaterally Cardio Common normals: regular rate, regular rhythm, S1 normal heart sound and S2 normal heart sound Extremity Common normals: normal to inspection and full ROM Neuro Common normals: oriented x3, CN's II-XII intact bilaterally and moves all extremities Other: hand grasp left 4/5. normal 5/5 right hand Psych Appearance: grossly normal Course Vital Signs Vital signs: Vital Signs Temperature 98.9 F 09/25/24 01:52 Pulse Rate 86 09/25/24 01:52 Respiratory Rate 18 09/25/24 01:52 Blood Pressure 127/94 H 09/25/24 01:52 Pulse Oximetry 98 09/25/24 01:52 Oxygen Delivery Method Room Air 09/25/24 01:52 Temperature 98.9 F 09/25/24 01:52 Pulse Rate 89 09/25/24 05:05 Respiratory Rate 17 09/25/24 05:05 Blood Pressure 133/99 H 09/25/24 05:05 Pulse Oximetry 95 09/25/24 05:05 Oxygen Delivery Method Room Air 09/25/24 01:52 MDM - Back Pain/Injury MDM Narrative Medical decision making narrative: surgery about one week ago . C-spine surgery. States surgery was helpful in relieving her right shoulder/chest pain and weakness of the right hand. She continues to have weakness of the left hand. Yesterday the pain she was experiencing before surgery returned. She is applying pressure to her right anterior chest. Describes pain right superior trapezius and of her back radiating into her chest and down her right arm. Still has normal strength of the right hand. has never regained strength of the left hand. CTA chest ordered as her pain was also pleuritic. CTA neg. Patient medicated with cocktail of magnesium, solumedrol and fentanyl and her pain is better. Advised of working diagnosis of neuropathic pain. Given dose of neurotin and discharged home with prescription for neurontin and prednisone Lab Data Labs: Lab Results 09/25/24 Range/Units 02:35 WBC 13.2 H (4.0-11.0) 10^3/uL RBC 4.33 (4.20-5.40) 10^6/uL Hgb 12.4 (12.0-16.0) g/dL Hct 37.4 (36.0-48.0) % MCV 86.4 (81.0-99.0) fL MCH 28.6 (26.7-34.0) pg MCHC 33.2 (29.9-35.2) g/dL RDW 12.2 (11.0-15.0) % Plt Count 531 H (150-450) 10^3/uL MPV 8.7 L (9.5-13.5) fL Neut % (Auto) 69.7 (43.0-75.0) % Lymph % (Auto) 18.5 L (20.5-60.0) % [place] % (Auto) 6.9 (1.7-12.0) % Eos % (Auto) 3.8 (0.9-7.0) % Baso % (Auto) 0.8 (0.2-2.0) % Neut # (Auto) 9.2 H (1.4-6.5) 10^3/uL Lymph # (Auto) 2.4 (1.2-3.8) 10^3/uL [place] # (Auto) 0.9 H (0.3-0.8) 10^3/uL Eos # (Auto) 0.5 (0.0-0.7) 10^3/uL Baso # (Auto) 0.1 (0.0-0.1) 10^3/uL Abs Immat Gran (auto) 0.04 H (0.00-0.03) 10^3/uL Imm/Tot Granulo (auto) 0.3 (0.0-0.5) % Sodium 136 (136-145) mmol/L Potassium 4.4 (3.5-5.1) mmol/L Chloride 99 (98-107) mmol/L Carbon Dioxide 27.2 (21.0-32.0) mmol/L Anion Gap 14.2 BUN 10.0 (7.0-18.0) mg/dL Creatinine 0.67 (0.55-1.02) mg/dL Est GFR ( Amer) >60 (>=60 mL/min/1.73m^2) Est GFR (Non-Af Amer) >60 (>=60 mL/min/1.73m^2) BUN/Creatinine Ratio 14.9 Glucose 113 H (74-106) mg/dL Calcium 9.4 (8.5-10.1) mg/dL Troponin I High Sens <4.0 L (4.0-51.3) pg/mL Imaging Data Chest x-ray: Radiologist's impression: ITS Impressions Chest CTA 09/25/24 02:22 IMPRESSION: 1. No evidence of pulmonary embolism or an acute cardiopulmonary abnormality. Electronically authenticated by: Marsha BONILLA Date: 09/25/2024 04:11 Discharge Plan Discharge Chief Complaint: Back Pain/Injury Clinical Impression: Radicular pain in right arm Patient Disposition: Home, Self-Care Prescriptions / Home Meds: No Action cyclobenzaprine 10 mg tablet 10 mg PO BID dextroamphetamine-amphetamine 10 mg capsule,extended release 24hr 10 mg PO QNOON Dupixent Pen 300 mg/2 mL pen injector 300 mg SUBCUT .[id number] estradiol [Leonarda] 0.05 mg/24 hr patch semiweekly 1 patch transdermal .every 3 days gabapentin 100 mg capsule 100 mg PO Q12H hydroxyzine HCl 10 mg tablet 10 mg PO .QHS Nurtec ODT 75 mg tablet,disintegrating 75 mg PO DAILY PRN (Reason: migraine headache) magnesium 200 mg tablet 200 mg PO DAILY meloxicam 7.5 mg tablet 7.5 mg PO .QD cephalexin 500 mg capsule 500 mg PO Q6H 7 Days Qty: 28 0RF ondansetron 4 mg tablet,disintegrating 4 mg PO Q8H PRN (Reason: nausea and vomiting) 4 Days Qty: 16 0RF polyethylene glycol 3350 [Miralax] 17 gram/dose powder 17 g PO DAILY PRN (Reason: constipation) Qty: 238 0RF docusate sodium [Colace] 100 mg capsule 100 mg PO BID Qty: 14 0RF oxycodone-acetaminophen [Percocet] 5-325 mg tablet 1 tab PO Q6H PRN (Reason: pain) 3 Days Qty: 12 0RF dextroamphetamine-amphetamine [Adderall XR] 20 mg capsule,extended release 24hr 20 mg PO DAILY fluoxetine 20 mg capsule 20 mg PO QPM ketorolac 10 mg tablet 10 mg PO BID PRN (Reason: pain) Rx Instructions: MAX 2 DAYS PER WEEK Print Language: Ethiopian Instructions: Cervical Radiculopathy (ED), Thoracic Pain (ED) Additional Instructions: follow up with your surgeon next week Referrals: Physician,Non-Staff, MD [Primary Care Provider] - 1 week Discharge Date/Time: 09/25/24 05:21
--- NOTE | 2024-09-25 02:22 | CT_ITS ---
The [address] [address] Patient Name: NANCY NICOLE MRN: [id number] date: 1975 Sex: F Assigned Patient Location: ER Current Patient Location: Accession/Order Number: [id number] Exam Date: 09/25/2024 02:49 Report Date: 09/25/2024 04:11 At the request of: MIRA PERRY Procedure: CT angio chest EXAM: CT angio chest HISTORY: pleuritic right sided chest pain COMPARISON: None. TECHNIQUE: Axial CT angiographic images through the chest were obtained after the intravenous administration of contrast. Coronal and sagittal reformats were obtained. Dose reduction techniques were achieved by using automated exposure control and/or adjustment of mA and/or kV according to patient size and/or use of iterative reconstruction technique. FINDINGS: The study is technically adequate with a good contrast bolus to the pulmonary arteries. There are no filling defects or vascular cutoffs to indicate a pulmonary embolus. The pulmonary arteries are normal in size. There is mild bibasilar atelectasis. The central airways are patent. No pleural effusion or pneumothorax is seen. The thoracic aorta is normal in course and caliber without evidence of an aneurysm. The cardiac chambers appear normal in size. There is no pericardial effusion. There is no mediastinal, hilar, or axillary lymphadenopathy by CT size criteria. Images through the upper abdomen reveal no significant abnormalities. No suspicious or aggressive bone lesions are seen. No acute fracture is seen. ACDF hardware is partially imaged in the lower cervical spine. CT/CT angio chest IMPRESSION: 1. No evidence of pulmonary embolism or an acute cardiopulmonary abnormality. Electronically authenticated by: Marsha BONILLA Date: 09/25/2024 04:11
[2024-09-25 02:55] LABS: Basophils Absolute Auto 0.1 10^3/uL (0.0-0.1); Basophils Percent Auto 0.8 % (0.2-2.0); Eosinophils Absolute Auto 0.5 10^3/uL (0.0-0.7); Eosinophils Percent Auto 3.8 % (0.9-7.0); Hematocrit 37.4 % (36.0-48.0); Hemoglobin 12.4 g/dL (12.0-16.0); Immature Granulocytes Abs Auto 0.04 10^3/uL (0.00-0.03); Immature Granulocytes Pct Auto 0.3 % (0.0-0.5); Lymphocytes Absolute Auto 2.4 10^3/uL (1.2-3.8); Lymphocytes Percent Auto 18.5 % (20.5-60.0); Mean Corpuscular HGB Conc 33.2 g/dL (29.9-35.2); Mean Corpuscular Hemoglobin 28.6 pg (26.7-34.0); Mean Corpuscular Volume 86.4 fL (81.0-99.0); Mean Platelet Volume 8.7 fL (9.5-13.5); Monocytes Absolute Auto 0.9 10^3/uL (0.3-0.8); Monocytes Percent Auto 6.9 % (1.7-12.0); Neutrophils Absolute Auto 9.2 10^3/uL (1.4-6.5); Neutrophils Percent Auto 69.7 % (43.0-75.0); Platelet Count 531 10^3/uL (150-450); Red Blood Count 4.33 10^6/uL (4.20-5.40); Red Cell Distribution Width 12.2 % (11.0-15.0); White Blood Count 13.2 10^3/uL (4.0-11.0)
[2024-09-25] MEDS: MAGNESIUM SULFATE IN WATER 2 GM/50 ML PREMIX IV (03:03)
[2024-09-25] MEDS: METHYLPREDNISOLONE SOD SUCC PF 125 MG/2 ML VIAL IVP (03:03)
[2024-09-25 03:12] LABS: Anion Gap 14.2; BUN Creatinine Ratio 14.9; Calcium 9.4 mg/dL (8.5-10.1); Carbon Dioxide 27.2 mmol/L (21.0-32.0); Chloride 99 mmol/L (98-107); Estimated GFR (African America >60 (>=60 mL/min/1.73m^2); Estimated GFR (Non-African Ame >60 (>=60 mL/min/1.73m^2); Glucose 113 mg/dL (74-106); Potassium 4.4 mmol/L (3.5-5.1); Sodium 136 mmol/L (136-145); Troponin I High Sensitivity <4.0 pg/mL (4.0-51.3)
[2024-09-25] MEDS: FENTANYL CITRATE/PF 100 MCG/2 ML VIAL IV (04:02)
[2024-09-25] MEDS: GABAPENTIN 400 MG CAPSULE PO (05:15)
--- NOTE | 2024-09-25 05:19 | PC.NURSE ---
i gave verbal and papers discharge orders along with 1 Rx to this patient and she voices yes to understanding these. at time of discharge this patient voices no concerns and shows no sign s of distress
== END 2024-09-25 05:21 | disposition home or self-care (01) ==
PROVIDERS: Emergency Provider Internal Medicine
DX: M79.601 Pain in right arm (principal); Z98.890 Other specified postprocedural states; M54.10 Radiculopathy, site unspecified; Z90.710 Acquired absence of both cervix and uterus; F17.210 Nicotine dependence, cigarettes, uncomplicated
CPT/HCPCS: 36415; 71275; 80048; 84484; 85025; 96365; 96375; 99284; J2919; J3010; J3475; Q9967

== ENCOUNTER 2024-10-10 09:12 | Emergency (ER) | payer MEDICAID, SELFPAY ==
[2024-10-10 09:19] VITALS: BP 137/86; PULSE 88; O2SAT 98
--- NOTE | 2024-10-10 09:24 | PC.NURSE ---
Complains of pain to bilateral hands and left leg.
--- NOTE | 2024-10-10 09:33 | ED_ITS ---
HPI HPI - General Adult General Chief complaint: Allergic Reaction Stated complaint: ALLERGIC REACTION PAIN IN FINGERS AND L KNEE Time Seen by Provider: 10/10/24 09:22 Source: patient Mode of arrival: walk-in Limitations: no limitations History of Present Illness HPI narrative: 48-year-old female presents to the emergency department for an ongoing issue with her left knee. She states it swollen but there was not any trauma. She has had this for more than a month. She had neck surgery recently and subsequently had an ultrasound of her left leg which showed no DVT. She saw an orthopedist last week who did a steroid injection and she does not feel like it is helping. She feels like both hands and her left knee are swollen. No chest pain cough or shortness of breath or fever. Related Data Home Medications ?Medication ?Instructions ?Recorded ?Confirmed dextroamphetamine-amphetamine ER 20 mg PO DAILY 12/28/23 09/17/24 20 mg 24hr capsule,extend release (Adderall XR) fluoxetine 20 mg capsule 20 mg PO QPM 12/28/23 09/17/24 ketorolac 10 mg tablet 10 mg PO BID PRN pain 12/28/23 09/17/24 cyclobenzaprine 10 mg tablet 10 mg PO BID 09/03/24 09/17/24 dextroamphetamine-amphetamine ER 10 mg PO QNOON 09/03/24 09/17/24 10 mg 24hr capsule,extend release dupilumab 300 mg/2 mL subcutaneous 300 mg subcut .[id number] 09/03/24 09/17/24 pen injector (Dupixent) estradiol 0.05 mg/24 hr semiweekly 1 patch transdermal .every 3 days 09/03/24 09/17/24 transdermal patch (Leonarda) gabapentin 100 mg capsule 100 mg PO Q12H 09/03/24 09/17/24 hydroxyzine HCl 10 mg tablet 10 mg PO .QHS 09/03/24 09/17/24 magnesium 200 mg tablet 200 mg PO DAILY 09/03/24 09/17/24 rimegepant 75 mg disintegrating 75 mg PO DAILY PRN migraine 09/03/24 09/17/24 tablet (Nurtec ODT) headache meloxicam 7.5 mg tablet 7.5 mg PO .QD 09/17/24 09/17/24 Previous Rx's ?Medication ?Instructions ?Recorded cephalexin 500 mg capsule 500 mg PO Q6H 7 days #28 caps 09/12/24 docusate sodium 100 mg capsule 100 mg PO BID #14 caps 09/12/24 (Colace) ondansetron 4 mg disintegrating 4 mg PO Q8H PRN nausea and 09/12/24 tablet vomiting 4 days #16 tabs oxycodone-acetaminophen 5 mg-325 1 tab PO Q6H PRN pain 3 days #12 09/12/24 mg tablet (Percocet) tabs polyethylene glycol 3350 17 17 g PO DAILY PRN constipation 09/12/24 gram/dose oral powder (Miralax) #238 grams etodolac 400 mg tablet 400 mg PO Q8H PRN pain #20 tabs 10/10/24 Allergies Allergy/AdvReac Type Severity Reaction Status Date / Time adhesive tape Allergy Intermediate Rash Verified 10/10/24 09:19 Penicillins Allergy Intermediate Rash Verified 10/10/24 09:19 sumatriptan (From Imitrex) Allergy Intermediate Unknown Verified 10/10/24 09:19 promethazine (From Phenergan) Allergy Unknown Verified 10/10/24 09:19 Opioid HPI Opioid Management Most Recent Opioid Data: Last Pain Scale 5 09/25/24 05:04 09/25/24 Review of Systems ROS Narrative A ten point review of systems is negative except as noted above. [facility] Medical History (Updated 10/10/24 @ 09:31 by Omi Asencio MD) Anemia ?D64.9 - Anemia, unspecified (ICD-10) Anxiety ?F41.9 - Anxiety disorder, unspecified (ICD-10) Depression ?F32.A - Depression, unspecified (ICD-10) Sleep apnea ?G47.30 - Sleep apnea, unspecified (ICD-10) Chronic obstructive pulmonary disease ?J44.9 - Chronic obstructive pulmonary disease, unspecified (ICD-10) Migraine ?G43.909 - Migraine, unspecified, not intractable, without status migrainosus (ICD-10) Narcolepsy ?G47.419 - Narcolepsy without cataplexy (ICD-10) ADD (attention deficit disorder) ?F98.8 - Other specified behavioral and emotional disorders with onset usually occurring in childhood and adolescence (ICD-10) Constipation ?K59.00 - Constipation, unspecified (ICD-10) Dyspnea on exertion ?R06.09 - Other forms of dyspnea (ICD-10) Abdominal adhesions ?K66.0 - Peritoneal adhesions (postprocedural) (postinfection) (ICD-10) Bowel obstruction ?K56.609 - Unspecified intestinal obstruction, unspecified as to partial versus complete obstruction (ICD-10) Lipoma ?D17.9 - Benign lipomatous neoplasm, unspecified (ICD-10) Ovarian cyst ?N83.209 - Unspecified ovarian cyst, unspecified side (ICD-10) IBS (irritable bowel syndrome) ?K58.9 - Irritable bowel syndrome, unspecified (ICD-10) GERD (gastroesophageal reflux disease) ?K21.9 - Gastro-esophageal reflux disease without esophagitis (ICD-10) Fibromyalgia ?M79.7 - Fibromyalgia (ICD-10) Endometriosis ?N80.9 - Endometriosis, unspecified (ICD-10) Neck pain ?M54.2 - Cervicalgia (ICD-10) Cervical stenosis of spine ?M48.02 - Spinal stenosis, cervical region (ICD-10) Surgical History (Updated 09/17/24 @ 09:08 by Virgie Valenzuela RN) H/O sinus surgery ?Z98.890 - Other specified postprocedural states (ICD-10) History of breast augmentation ?Z98.82 - Breast implant status (ICD-10) H/O abdominoplasty ?Z98.890 - Other specified postprocedural states (ICD-10) H/O abdominal surgery ?Z98.890 - Other specified postprocedural states (ICD-10) History of intestinal surgery ?Z98.890 - Other specified postprocedural states (ICD-10) History of appendectomy ?Z90.49 - Acquired absence of other specified parts of digestive tract (ICD- 10) History of hysterectomy ?Z90.710 - Acquired absence of both cervix and uterus (ICD-10) S/P excision of lipoma ?Z98.890 - Other specified postprocedural states (ICD-10) ?Z86.018 - Personal history of other benign neoplasm (ICD-10) Family History (Updated 09/03/24 @ 09:48 by Ansley Carmen NP) Other Alcoholism Anxiety Family history of cancer Family history of coronary artery disease Family history of diabetes mellitus Family history of hypertension Heart disease Mental health disorder Rheumatoid arthritis Social History (Updated 09/03/24 @ 09:38 by Ansley Carmen NP) Within the past year, how often did you have a drink containing alcohol: never Score interpretation: A score less than 3 is consistent with normal alcohol consumption. Smoking status: Current every day smoker What tobacco products do you use: cigarettes Packs per day: 1 Years smoked: 30 Smoking pack-years: 30.00 Non-prescribed substance use: cannabis (any form) Highest level of school completed/degree received: some college, no degree Little interest or pleasure in doing things: not at all Feeling down, depressed, or hopeless: not at all Exam Narrative Exam Narrative: Nurses note and vital signs reviewed and patient is not hypoxic. General: The patient appears well and in no apparent distress. She seems to have difficulty sitting still. Skin: Warm, dry, no pallor noted. There is no rash noted. Head: Normocephalic, atraumatic Eye: Normal conjunctiva, no drainage Ears, Nose, Mouth, and Throat: oral mucosa is moist. Nares patent. Cardiovascular: Regular Rate and Rhythm Respiratory: Patient is in no distress, no accessory muscle use, lungs are clear to auscultation, no wheezing, rales or rhonchi Back: non-tender GI: Soft and not Musculoskeletal: Neither hand seems swollen and all of her fingers have full range of motion. Her left knee is mildly swollen compared to the contralateral but there is no erythema bruising or rash present. It is not warm to touch. Neurological: A&O, normal speech Psychiatric: Cooperative Constitutional Vital Signs, click to edit/add: Last Vital Signs Pulse 88 10/10/24 09:19 Resp 20 10/10/24 09:19 BP 137/86 10/10/24 09:19 Pulse Ox 98 10/10/24 09:19 O2 Del Method Room Air 10/10/24 09:19 Course Vital Signs Vital signs: Vital Signs Pulse Rate 88 10/10/24 09:19 Respiratory Rate 20 10/10/24 09:19 Blood Pressure 137/86 10/10/24 09:19 Pulse Oximetry 98 10/10/24 09:19 Oxygen Delivery Method Room Air 10/10/24 09:19 Pulse Rate 88 10/10/24 09:19 Respiratory Rate 20 10/10/24 09:19 Blood Pressure 137/86 10/10/24 09:19 Pulse Oximetry 98 10/10/24 09:19 Oxygen Delivery Method Room Air 10/10/24 09:19 Medical Decision Making MDM Narrative Medical decision making narrative: This is an ongoing issue for her and its already been worked up and she has seen a specialist about it. She was prescribed etodolac and will follow-up with her doctor. There is no indication for any further testing here in the emergency department. Differential Diagnosis Differential Diagnosis: Arthritis, knee pain Medical Records Medical records reviewed: Yes I reviewed the patient's medical records Discharge Plan Discharge Chief Complaint: Allergic Reaction Clinical Impression: Left knee pain Patient Disposition: Home, Self-Care Time of Disposition Decision: 09:31 Condition: Good Mode of Transportation: Private Vehicle Prescriptions / Home Meds: New etodolac 400 mg tablet 400 mg PO Q8H PRN (Reason: pain) Qty: 20 0RF No Action cyclobenzaprine 10 mg tablet 10 mg PO BID dextroamphetamine-amphetamine 10 mg capsule,extended release 24hr 10 mg PO QNOON Dupixent Pen 300 mg/2 mL pen injector 300 mg SUBCUT .[id number] estradiol [Leonarda] 0.05 mg/24 hr patch semiweekly 1 patch transdermal .every 3 days gabapentin 100 mg capsule 100 mg PO Q12H hydroxyzine HCl 10 mg tablet 10 mg PO .QHS Nurtec ODT 75 mg tablet,disintegrating 75 mg PO DAILY PRN (Reason: migraine headache) magnesium 200 mg tablet 200 mg PO DAILY meloxicam 7.5 mg tablet 7.5 mg PO .QD cephalexin 500 mg capsule 500 mg PO Q6H 7 Days Qty: 28 0RF ondansetron 4 mg tablet,disintegrating 4 mg PO Q8H PRN (Reason: nausea and vomiting) 4 Days Qty: 16 0RF polyethylene glycol 3350 [Miralax] 17 gram/dose powder 17 g PO DAILY PRN (Reason: constipation) Qty: 238 0RF docusate sodium [Colace] 100 mg capsule 100 mg PO BID Qty: 14 0RF oxycodone-acetaminophen [Percocet] 5-325 mg tablet 1 tab PO Q6H PRN (Reason: pain) 3 Days Qty: 12 0RF dextroamphetamine-amphetamine [Adderall XR] 20 mg capsule,extended release 24hr 20 mg PO DAILY fluoxetine 20 mg capsule 20 mg PO QPM ketorolac 10 mg tablet 10 mg PO BID PRN (Reason: pain) Rx Instructions: MAX 2 DAYS PER WEEK Print Language: Trinidadian Instructions: Knee Pain (ED), Arthralgia (ED) Referrals: Physician,Non-Staff, MD [Primary Care Provider] - 1 week
== END 2024-10-10 09:48 | disposition home or self-care (01) ==
LOC: ER 10:00
PROVIDERS: Emergency Provider Emergency Medicine
DX: M25.562 Pain in left knee (principal); Z90.710 Acquired absence of both cervix and uterus; F17.210 Nicotine dependence, cigarettes, uncomplicated
CPT/HCPCS: 99283

== ENCOUNTER 2024-11-26 11:23 | Emergency (ER) | payer MEDICAID, SELFPAY ==
[2024-11-26 11:36] VITALS: BP 148/88; PULSE 93; TEMP 36.9; O2SAT 99; BMI 29.2
--- NOTE | 2024-11-26 12:06 | ED_ITS ---
HPI HPI - Neck Pain/Injury General Chief Complaint: Neck Pain/Injury Stated Complaint: neck pain, neck surgery 09/17/24 Time Seen by Provider: 11/26/24 11:32 Mode of arrival: walk-in History of Present Illness HPI Narrative: pt presents with right side posterior neck pain that is chronic but acutely worse over the last few days. She had neck surgery with Dr Langford in September 2024, she told me. She was supposed to see Dr Novak in early November but she was sick so she rescheduled for early December to see him in the [place] office. She described decreased strength and sensation in the right UE but on chart review this has been present before. No fever or chills. No vomiting. No skin changes. No relief with ultram and gabapentin at home. Related Data Home Medications ?Medication ?Instructions ?Recorded ?Confirmed dextroamphetamine-amphetamine ER 20 mg PO DAILY 12/28/23 11/26/24 20 mg 24hr capsule,extend release (Adderall XR) fluoxetine 20 mg capsule 20 mg PO QPM 12/28/23 11/26/24 ketorolac 10 mg tablet 10 mg PO BID PRN pain 12/28/23 11/26/24 cyclobenzaprine 10 mg tablet 10 mg PO BID 09/03/24 11/26/24 dextroamphetamine-amphetamine ER 10 mg PO QNOON 09/03/24 11/26/24 10 mg 24hr capsule,extend release estradiol 0.05 mg/24 hr semiweekly 1 patch transdermal .every 3 days 09/03/24 11/26/24 transdermal patch (Leonarda) gabapentin 100 mg capsule 100 mg PO Q12H 09/03/24 11/26/24 hydroxyzine HCl 10 mg tablet 10 mg PO .QHS 09/03/24 11/26/24 magnesium 200 mg tablet 200 mg PO DAILY 09/03/24 11/26/24 rimegepant 75 mg disintegrating 75 mg PO DAILY PRN migraine 09/03/24 11/26/24 tablet (Nurtec ODT) headache meloxicam 7.5 mg tablet 7.5 mg PO .QD 09/17/24 11/26/24 aripiprazole 2 mg tablet 2 mg PO DAILY 11/26/24 11/26/24 Previous Rx's ?Medication ?Instructions ?Recorded cephalexin 500 mg capsule 500 mg PO Q6H 7 days #28 caps 09/12/24 ondansetron 4 mg disintegrating 4 mg PO Q8H PRN nausea and 09/12/24 tablet vomiting 4 days #16 tabs methylprednisolone 4 mg tablets in 4 mg PO DAILY #21 ea 11/26/24 a dose pack (Medrol (Dayron)) Allergies Allergy/AdvReac Type Severity Reaction Status Date / Time adhesive tape Allergy Intermediate Rash Verified 11/26/24 11:31 Penicillins Allergy Intermediate Rash Verified 11/26/24 11:31 sumatriptan (From Imitrex) Allergy Intermediate Unknown Verified 11/26/24 11:31 promethazine (From Phenergan) Allergy Unknown Verified 11/26/24 11:31 NSAIDS (Non-Steroidal AdvReac Mild Unknown Verified 11/26/24 11:31 Anti-Inflamma Opioid HPI Opioid Management Most Recent Opioid Data: Last Pain Scale 5 09/25/24 05:04 09[facility]25/24 [facility] Medical History (Updated 11/26/24 @ 12:18 by Noel Causey) Anemia ?D64.9 - Anemia, unspecified (ICD-10) Anxiety ?F41.9 - Anxiety disorder, unspecified (ICD-10) Depression ?F32.A - Depression, unspecified (ICD-10) Sleep apnea ?G47.30 - Sleep apnea, unspecified (ICD-10) Chronic obstructive pulmonary disease ?J44.9 - Chronic obstructive pulmonary disease, unspecified (ICD-10) Migraine ?G43.909 - Migraine, unspecified, not intractable, without status migrainosus (ICD-10) Narcolepsy ?G47.419 - Narcolepsy without cataplexy (ICD-10) ADD (attention deficit disorder) ?F98.8 - Other specified behavioral and emotional disorders with onset usually occurring in childhood and adolescence (ICD-10) Constipation ?K59.00 - Constipation, unspecified (ICD-10) Dyspnea on exertion ?R06.09 - Other forms of dyspnea (ICD-10) Abdominal adhesions ?K66.0 - Peritoneal adhesions (postprocedural) (postinfection) (ICD-10) Bowel obstruction ?K56.609 - Unspecified intestinal obstruction, unspecified as to partial versus complete obstruction (ICD-10) Lipoma ?D17.9 - Benign lipomatous neoplasm, unspecified (ICD-10) Ovarian cyst ?N83.209 - Unspecified ovarian cyst, unspecified side (ICD-10) IBS (irritable bowel syndrome) ?K58.9 - Irritable bowel syndrome, unspecified (ICD-10) GERD (gastroesophageal reflux disease) ?K21.9 - Gastro-esophageal reflux disease without esophagitis (ICD-10) Fibromyalgia ?M79.7 - Fibromyalgia (ICD-10) Endometriosis ?N80.9 - Endometriosis, unspecified (ICD-10) Neck pain ?M54.2 - Cervicalgia (ICD-10) Cervical stenosis of spine ?M48.02 - Spinal stenosis, cervical region (ICD-10) Surgical History (Updated 09/17/24 @ 09:08 by Virgie Valenzuela RN) H/O sinus surgery ?Z98.890 - Other specified postprocedural states (ICD-10) History of breast augmentation ?Z98.82 - Breast implant status (ICD-10) H/O abdominoplasty ?Z98.890 - Other specified postprocedural states (ICD-10) H/O abdominal surgery ?Z98.890 - Other specified postprocedural states (ICD-10) History of intestinal surgery ?Z98.890 - Other specified postprocedural states (ICD-10) History of appendectomy ?Z90.49 - Acquired absence of other specified parts of digestive tract (ICD- 10) History of hysterectomy ?Z90.710 - Acquired absence of both cervix and uterus (ICD-10) S/P excision of lipoma ?Z98.890 - Other specified postprocedural states (ICD-10) ?Z86.018 - Personal history of other benign neoplasm (ICD-10) Family History (Updated 09/03/24 @ 09:48 by Ansley Carmen NP) Other Alcoholism Anxiety Family history of cancer Family history of coronary artery disease Family history of diabetes mellitus Family history of hypertension Heart disease Mental health disorder Rheumatoid arthritis Social History (Updated 09/03/24 @ 09:38 by Ansley Carmen NP) Within the past year, how often did you have a drink containing alcohol: never Score interpretation: A score less than 3 is consistent with normal alcohol consumption. Smoking status: Current every day smoker What tobacco products do you use: cigarettes Packs per day: 1 Years smoked: 30 Smoking pack-years: 30.00 Non-prescribed substance use: cannabis (any form) Highest level of school completed/degree received: some college, no degree Little interest or pleasure in doing things: not at all Feeling down, depressed, or hopeless: not at all Exam Narrative Exam Narrative: Nurses notes and vital signs reviewed and patient is not hypoxic. afebrile General: Well-appearing and in no apparent distress. Skin: Warm, dry, no pallor noted. No rash to neck or back. Head: Normocephalic, atraumatic. Neck: Supple, no lymphadenopathy. Marked tenderness out of proportion to touch along the right posterolateral neck down to the upper portion of the thoracic spine at midline with involvement of the medial right trapezius superiorly. No trapezius or scapular tenderness on the left. Eye: Pupils are equal, round and EOMI. No scleral icterus. Ears, Nose, Mouth, and Throat: Oral mucosa is moist Cardiovascular: Regular Rate and Rhythm without murmur, gallop or rub. Respiratory: No accessory muscle use or respiratory distress. Lungs are clear to auscultation, no wheezing, rales or rhonchi Back: No midline thoracic vertebral tenderness except near the cervico-thoracic junction. Musculoskeletal: normal ROM, no calf or popliteal tenderness, no lower extremity edema/swelling Neurological: A&O x4. No cranial nerve dysfunction observed. No truncal ataxia. Moves right upper extremity but with increased pain in right neck. 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 Sensation variable along right UE in non-dermatomal distrib ution. Psychiatric: Cooperative and interactive. Normal mood and affect. Constitutional Vital Signs, click to edit/add: Last Vital Signs Temp 98.4 F 11/26/24 11:36 Pulse 93 H 11/26/24 11:36 Resp 16 11/26/24 11:36 BP 148/88 H 11/26/24 11:36 Pulse Ox 99 11/26/24 11:36 O2 Del Method Room Air 11/26/24 11:36 Course Vital Signs Vital signs: Vital Signs Temperature 98.4 F 11/26/24 11:36 Pulse Rate 93 H 11/26/24 11:36 Respiratory Rate 16 11/26/24 11:36 Blood Pressure 148/88 H 11/26/24 11:36 Pulse Oximetry 99 11/26/24 11:36 Oxygen Delivery Method Room Air 11/26/24 11:36 Temperature 98.4 F 11/26/24 11:36 Pulse Rate 93 H 11/26/24 11:36 Respiratory Rate 16 11/26/24 11:36 Blood Pressure 148/88 H 11/26/24 11:36 Pulse Oximetry 99 11/26/24 11:36 Oxygen Delivery Method Room Air 11/26/24 11:36 MDM - Neck Pain/Injury MDM Narrative Medical decision making narrative: I called and spoke with Dr. Saint Crain, her neurosurgeon. I described the patient's presentation, lack of recent trauma, acute exacerbation of her chronic symptoms and lack of new findings on physical examination, compared with findings on previous ED visits for similar complaint. When I outlined my plan for this patient, which includes peripheral IV access, IV magnesium, IV Solu- Medrol and IV fentanyl, he was agreeable to that plan. I also discussed my plan for discharge which includes adding a prednisone taper to the patient's current medical regimen of Neurontin. He agreed with that as well. He will see her in the office at her scheduled appointment in early December. No indication for imaging at this time, Dr. Saint Crain agreed While I was talking to Dr Novak and as the ED nurse was attempting IV access, the patient told the nurse that she was leaving. By the time I walked to the room, she had already gotten her things and left. I did send the prescription for prednisone to her pharmacy of record. Discharge Plan Discharge Stand Alone Forms: Portal Instructions Chief Complaint: Neck Pain/Injury Clinical Impression: Acute neck pain, Chronic neck pain, Neuropathy of right upper extremity Patient Disposition: Left Against Medical Advice Time of Disposition Decision: 12:20 Prescriptions / Home Meds: New methylprednisolone [Medrol (Dayron)] 4 mg tablets,dose pack 4 mg PO DAILY Qty: 21 0RF No Action cyclobenzaprine 10 mg tablet 10 mg PO BID dextroamphetamine-amphetamine 10 mg capsule,extended release 24hr 10 mg PO QNOON estradiol [Leonarda] 0.05 mg/24 hr patch semiweekly 1 patch transdermal .every 3 days gabapentin 100 mg capsule 100 mg PO Q12H hydroxyzine HCl 10 mg tablet 10 mg PO .QHS Nurtec ODT 75 mg tablet,disintegrating 75 mg PO DAILY PRN (Reason: migraine headache) magnesium 200 mg tablet 200 mg PO DAILY meloxicam 7.5 mg tablet 7.5 mg PO .QD cephalexin 500 mg capsule 500 mg PO Q6H 7 Days Qty: 28 0RF ondansetron 4 mg tablet,disintegrating 4 mg PO Q8H PRN (Reason: nausea and vomiting) 4 Days Qty: 16 0RF aripiprazole 2 mg tablet 2 mg PO DAILY dextroamphetamine-amphetamine [Adderall XR] 20 mg capsule,extended release 24hr 20 mg PO DAILY fluoxetine 20 mg capsule 20 mg PO QPM ketorolac 10 mg tablet 10 mg PO BID PRN (Reason: pain) Rx Instructions: MAX 2 DAYS PER WEEK Print Language: Nepali Instructions: Chronic Pain (ED), Cervical Radiculopathy (ED), Acute Neck Pain (ED) Referrals: Physician,Non-Staff, MD [Primary Care Provider] - 1 week
== END 2024-11-26 12:35 | disposition left against medical advice (07) ==
PROVIDERS: Emergency Provider Emergency Medicine
DX: Z53.29 Procedure and treatment not carried out because of patient's decision for other reasons (principal); F17.210 Nicotine dependence, cigarettes, uncomplicated; M54.2 Cervicalgia; G89.29 Other chronic pain; G62.9 Polyneuropathy, unspecified